=== PATIENT | female | born 1960 | race Caucasian/White ===

== ENCOUNTER 2021-11-16 14:35 | Inpatient (IN) ==
--- NOTE | 2021-11-16 15:34 | Emergency Department Note ---
Impression & Plan Hyperkalemia, ESRD (end stage renal disease) on dialysis, COVID-19 virus infection, Weakness ED Provider Note NAME: MARCK CHRISTENSEN AGE: 61 SEX: F : 1960 ARRIVES VIA: Walk-In INFORMANT: Patient, Family ED PROVIDER(S): Jose Ramon Arshad DO CHIEF COMPLAINT: Abnormal potassium, weakness, Covid positive HPI: Patient is a 61-year-old female who presents to the ER for abnormal blood work. Patient symptoms she believes started over a week ago. Family members note that she has been sick with upper respiratory symptoms since October 09. She was seen and evaluated [facility] and tested positive for Covid. She was discharged today after admission. She received 2 hours of dialysis yesterday. She is dialysis dependent and normally gets this Monday and 4 hours. She was called by Dr. Jesus vivas [facility] and instructed to come to the ER for admission due to an elevated potassium. Patient admits to cough, congestion and weakness. She notes that she is a little more short of breath then usual but nothing has changed since discharge. ROS: See above HPI for pertinent positives & negatives. A total of 10 systems reviewed and were otherwise negative. PAST MEDICAL HISTORY:See Below PAST SURGICAL HISTORY:See Below FAMILY HISTORY:See Below SOCIAL HISTORY:See Below HOME MEDICATIONS:See Below ALLERGIES:See Below VITALS:See Below PHYSICAL EXAMINATION: GENERAL: Sitting up in bed, alert, ill-appearing, morbidly obese, disheveled, intermittent cough EYE EXAM: normal conjunctiva. PERRL and EOM's grossly intact. OROPHARYNX: no exudate, no erythema, lips, buccal mucosa, and tongue normal and mucous membranes are moist NECK: supple, no nuchal rigidity, no adenopathy, non-tender LUNGS: Clear to auscultation. Normal chest wall mechanics HEART: no murmurs, S1 normal and S2 normal ABDOMEN: abdomen soft, non-tender, normo-active bowel sounds, no masses, no rebound or guarding. UPPER EXTREMITIES: upper extremities are grossly normal. LOWER EXTREMITIES: No pitting edema. NEURO EXAM: Normal sensorium, cranial nerves II-XII grossly intact, normal sp eech, no gross weakness of arms, no gross weakness of legs. MEDICAL DECISION MAKING: Patient is a 61-year-old female referred in by nephrology for an elevated potassium. Patient denies all other complaints. IV was established blood work was obtained. Labs show no significant leukocytosis. Mild anemia at 8.3. BMP with potassium 5.5. Creatinine 7.6. BUN elevated. Glucose is elevated as well. Patient was Covid positive. Initially discussed with Dr. Lee to clarify why patient was sent in. He was for the potassium upon discharge at [facility] of 6.2. This was after 2 hours of dialysis. Contacted Saray from nephrology following the results of the blood work. She recommended observation overnight due to the Covid positive and trying to obtain dialysis as an outpatient will need additional work setting this up. Triage Nursing notes reviewed. Limited review of prior medical records performed Vital Signs: reviewed and remarkable for no significant abnormalities Differential diagnosis: Differential diagnoses includes but is not limited to pneumonia, bronchitis, COPD/Asthma exacerbation, pneumothorax, pulmonary embolism, congestive heart failure, acute coronary syndrome ER treatment provided: See below Diagnostics interpreted by me: ECG: Sinus rhythm rate of 99 Normal axis Poor baseline QTC 495 Cardiac Monitoring: An order was placed for continuous cardiac monitoring. The monitor shows a rate of 92 with sinus rhythm. Laboratory studies: As stated above and show below. Imaging studies: Portable AP upright 1 view of the chest as described below Consultation(s): As discussed in MDM Discussed with the hospitalist for further evaluation Procedures: none Critical Care: None Past Med/Surg History Medical History (Updated 11/16/21 @ 21:38 by Jose Ramon Arshad DO) CHF (congestive heart failure) Chronic anemia ESRD (end stage renal disease) on dialysis HTN (hypertension) IDDM (insulin dependent diabetes mellitus) Social History Smoking Status: Former smoker Feels Safe at Home: Yes Allergies Allergies Allergy/AdvReac Type Severity Reaction Status Date / Time allopurinol Allergy Intermediate Hives Verified 11/16/21 16:52 gemfibrozil AdvReac Intermediate Tachycardia Verified 11/16/21 16:52 lisinopril AdvReac Intermediate HIVES PER Verified 11/16/21 16:52 GMG-SOB PER PT. metformin AdvReac Intermediate Diarrhea Verified 11/16/21 16:52 Home Meds Home Medications Medication Instructions Recorded Confirmed atorvastatin 20 mg tablet 20 mg PO QAM 11/16/21 11/16/21 calcium acetate(phosphat bind) 667 1,334 mg PO TIDM 02/08/22 02/08/22 mg capsule ezetimibe 10 mg tablet (Zetia) 10 mg PO QAM 11/16/21 11/16/21 furosemide 80 mg tablet (Lasix) 80 mg PO QAM 11/16/21 11/16/21 insulin glargine 100 unit/mL 12 unit SUBCUT HS 11/16/21 11/16/21 subcutaneous solution (Lantus U-100 Insulin) metoprolol succinate 50 mg 50 mg PO QAM 11/16/21 11/16/21 tablet,extended release 24 hr sodium zirconium cyclosilicate 10 10 g PO 5XWK 11/16/21 11/16/21 gram oral powder packet (Lokelma) vitamin B complex and vitamin C 1 cap PO QAM 11/16/21 11/16/21 no.20-folic acid 1 mg capsule (Renal Caps) Results & Data (ED) Vital Signs Vital Signs - 24 hr 11/16/21 14:58 11/16/21 17:48 Temperature 36.9 C Temperature Source Temporal Artery Scan Pulse Rate 94 H Pulse Rate [Apical] 92 H Pulse Rhythm Regular Pulse Strength Normal Respiratory Rate 20 26 H Respiratory Effort / Characteristics Non-Labored Spontaneous SOB on Exertion Respiratory Depth Normal Respiratory Pattern Regular Blood Pressure 132/82 Blood Pressure [Right Arm] 143/90 H Blood Pressure Mean 98 Blood Pressure Mean [Right Arm] 107 Blood Pressure Position Sitting Pulse Oximetry 98 96 Oxygen Delivery Method Room Air Room Air Sepsis Recent Fever Within 48 Hours No Sepsis New/Unexplained Change in Mental Status N/A Sepsis Action Taken by Nursing No Action Required Laboratory Data Result diagrams: 11/16/21 16:15 11/16/21 16:15 Lab Results 11/16/21 11/16/21 11/16/21 Range/Units 16:15 16:15 16:17 WBC 6.13 (4.8-10.8) K/uL RBC 2.39 L (4.2-5.4) M/uL Hgb 8.3 L (12.0-16.0) g/dL POC Hgb 7.5 L (12.0-16.0) g/dl Hct 26.0 L (37-47) % POC Hct 22 L (37-47) % MCV 108.8 H (80-100) fL MCH 34.7 H (25-34) pg MCHC 31.9 L (32-36) g/dL RDW Std Deviation 63.2 H (36.4-46.3) fL RDW Coeff of Wiley 15.8 H (11.5-14.5) % Plt Count 128 L (130-400) K/uL MPV 10.5 H (7.4-10.4) fL Immature Gran % (Auto) 0.2 % Neut % (Auto) 88.2 % Lymph % (Auto) 5.4 % Hopkins % (Auto) 6.0 % Eos % (Auto) 0.0 % Baso % (Auto) 0.2 % Neut # (Auto) 5.41 (1.4-6.5) K/uL Lymph # (Auto) 0.33 L (1.2-3.4) K/uL Hopkins # (Auto) 0.37 (0.11-0.59) K/uL Eos # (Auto) 0.00 (0-0.5) K/uL Baso # (Auto) 0.01 (0-0.2) K/uL Immature Gran # (Auto) 0.01 (0.00-0.02) K/uL POC Sodium 141 (135-144) mmol/L Sodium 141 (136-145) mmol/L POC Potassium 5.4 H (3.3-5.0) mmol/L Potassium 5.5 H (3.5-5.1) mmol/L POC Chloride 105 (101-112) mmol/L Chloride 106 (98-107) mmol/L Carbon Dioxide 24 (21-32) mmol/L POC Total CO2 24 (24-31) mmol/L Anion Gap 11 (3-11) POC Anion Gap 19.0 (16-25) mmol/L POC BUN 104 H* (7-18) mg/dl BUN 94 H (6-23) mg/dl Creatinine 7.63 H* (0.6-1.2) mg/dl POC Creatinine 8.1 H* (0.6-1.3) mg/dl Est Cr Clr Drug Dosing Not Reportable Est GFR ( Amer) 6.1 ml/min Est GFR (Non-Af Amer) 5.2 ml/min BUN/Creatinine Ratio 12.3 (10-20) Glucose 256 H (70-99(Fasting)) mg/dl POC Glucose (other) 254 H (70-99) mg/dl Calcium 7.9 L (8.5-10.1) mg/dl POC Ioniz Calcium Sarah 1.06 L (1.12-1.32) mmol/l Total Bilirubin 0.5 (0.2-1.0) mg/dl AST 47 H (13-39) U/L ALT 72 H (7-52) U/L Alkaline Phosphatase 59 (34-104) U/L Total Protein 6.2 (6.0-8.3) gm/dl Albumin 3.3 L (3.4-5.0) gm/dl Globulin 2.9 (2.5-4.0) gm/dl Albumin/Globulin Ratio 1.1 (0.9-2) SARS-CoV-2, RNA, NAAT (NEGATIVE) 11/16/21 Range/Units 18:21 WBC (4.8-10.8) K/uL RBC (4.2-5.4) M/uL Hgb (12.0-16.0) g/dL POC Hgb (12.0-16.0) g/dl Hct (37-47) % POC Hct (37-47) % MCV (80-100) fL MCH (25-34) pg MCHC (32-36) g/dL RDW Std Deviation (36.4-46.3) fL RDW Coeff of Wiley (11.5-14.5) % Plt Count (130-400) K/uL MPV (7.4-10.4) fL Immature Gran % (Auto) % Neut % (Auto) % Lymph % (Auto) % Hopkins % (Auto) % Eos % (Auto) % Baso % (Auto) % Neut # (Auto) (1.4-6.5) K/uL Lymph # (Auto) (1.2-3.4) K/uL Hopkins # (Auto) (0.11-0.59) K/uL Eos # (Auto) (0-0.5) K/uL Baso # (Auto) (0-0.2) K/uL Immature Gran # (Auto) (0.00-0.02) K/uL POC Sodium (135-144) mmol/L Sodium (136-145) mmol/L POC Potassium (3.3-5.0) mmol/L Potassium (3.5-5.1) mmol/L POC Chloride (101-112) mmol/L Chloride (98-107) mmol/L Carbon Dioxide (21-32) mmol/L POC Total CO2 (24-31) mmol/L Anion Gap (3-11) POC Anion Gap (16-25) mmol/L POC BUN (7-18) mg/dl BUN (6-23) mg/dl Creatinine (0.6-1.2) mg/dl POC Creatinine (0.6-1.3) mg/dl Est Cr Clr Drug Dosing Est GFR ( Amer) ml/min Est GFR (Non-Af Amer) ml/min BUN/Creatinine Ratio (10-20) Glucose (70-99(Fasting)) mg/dl POC Glucose (other) (70-99) mg/dl Calcium (8.5-10.1) mg/dl POC Ioniz Calcium Sarah (1.12-1.32) mmol/l Total Bilirubin (0.2-1.0) mg/dl AST (13-39) U/L ALT (7-52) U/L Alkaline Phosphatase (34-104) U/L Total Protein (6.0-8.3) gm/dl Albumin (3.4-5.0) gm/dl Globulin (2.5-4.0) gm/dl Albumin/Globulin Ratio (0.9-2) SARS-CoV-2, RNA, NAAT POSITIVE A* (NEGATIVE) Imaging Data Radiologist's Impression: Chest X-Ray 11/16/21 15:29 XR chest 1V portable CLINICAL HISTORY: Weakness. Shortness of breath. COMPARISON STUDY: No previous studies for comparison. FINDINGS: Dual lumen right internal jugular catheter is in place. Exam is compromised by portable technique and suboptimal penetration. No pneumothorax is present. There is no definite pleural effusion. Moderate cardiomegaly is noted. There is pulmonary vascular congestion with possible mild pulmonary edema. No lobar consolidation is noted. Apparent left basilar opacity is probably artifactual. IMPRESSION: 1. Cardiomegaly. Pulmonary vascular congestion with suspected mild pulmonary edema. 2. Hazy bibasilar opacities. These are likely artifactual however airspace disease or pulmonary edema could appear similar. ACT 112: Negative or not required by law. Electronically signed by: David Barlow M.D. 11/16/2021 4:29 PM Discharge Plan Visit Data Chief Complaint: Abnormal Labs/Diagnostic Testing Stated Complaint: COUGH, CONGESTION, BLOOD IN MUCUS ED Provider: Jose Ramon Arshad Discharge Problem: Hyperkalemia, ESRD (end stage renal disease) on dialysis, COVID-19 virus infection, Weakness Forms Stand Alone Forms: My [facility] Prescriptions Prescriptions: No Action atorvastatin 20 mg tablet 20 mg PO QAM RF: 0 Lantus U-100 Insulin 100 unit/mL Solution 12 unit SUBCUT HS RF: 0 metoprolol succinate 50 mg tablet extended release 24 hr 50 mg PO QAM RF: 0 furosemide [Lasix] 80 mg Tablet 80 mg PO QAM RF: 0 Renal Caps 1 mg Capsule 1 cap PO QAM RF: 0 ezetimibe [Zetia] 10 mg Tablet 10 mg PO QAM RF: 0 calcium acetate(phosphat bind) 667 mg capsule 1,334 mg PO TIDM RF: 0 Lokelma 10 gram powder in packet 10 g PO 5XWK RF: 0 Referrals Referrals: Bhanu Murillo M.D. [Primary Care Provider] -
[2021-11-16 16:25] LABS: Basophils # (auto) 0.01 K/uL (0-0.2); Basophils % (auto) 0.2 %; Hemoglobin 8.3 g/dL (12.0-16.0); Immature Granulocytes # (auto) 0.01 K/uL (0.00-0.02); Immature Granulocytes % (auto) 0.2 %; Lymphocytes # (auto) 0.33 K/uL (1.2-3.4); Lymphocytes % (auto) 5.4 %; Mean Corpuscular Hemoglobin 34.7 pg (25-34); Mean Corpuscular Hgb Conc 31.9 g/dL (32-36); Mean Corpuscular Volume 108.8 fL (80-100); Mean Platelet Volume 10.5 fL (7.4-10.4); Monocytes # (auto) 0.37 K/uL (0.11-0.59); Neutrophils # (auto) 5.41 K/uL (1.4-6.5); Neutrophils % (auto) 88.2 %; Platelet Count 128 K/uL (130-400); RDW Coefficient of Variation 15.8 % (11.5-14.5); RDW Standard Deviation 63.2 fL (36.4-46.3); Red Blood Count 2.39 M/uL (4.2-5.4); White Blood Count 6.13 K/uL (4.8-10.8)
[2021-11-16 16:30] LABS: iSTAT Creatinine 8.1 mg/dl (0.6-1.3); iSTAT Hemoglobin 7.5 g/dl (12.0-16.0); iSTAT Ionized Calcium 1.06 mmol/l (1.12-1.32); iSTAT Potassium 5.4 mmol/L (3.3-5.0)
--- NOTE | 2021-11-16 16:30 | XRay Report ---
XR chest 1V portable CLINICAL HISTORY: Weakness. Shortness of breath. COMPARISON STUDY: No previous studies for comparison. FINDINGS: Dual lumen right internal jugular catheter is in place. Exam is compromised by portable yanick hnique and suboptimal penetration. No pneumothorax is present. There is no definite pleural effusion. Moderate cardiomegaly is noted. There is pulmonary vascular congestion with possible mild pulmonary edema. No lobar consolidation is noted. Apparent left basilar opacity is probably artifactual. IMPRESSION: 1. Cardiomegaly. Pulmonary vascular congestion with suspected mild pulmonary edema. 2. Hazy bibasilar opacities. These are likely artifactual however airspace disease or pulmonary gerry a could appear similar. ACT 112: Negative or not required by law. Electronically signed by: David Barlow M.D. 11/16/2021 4:29 PM
[2021-11-16 17:09] LABS: Alanine Aminotransferase 72 U/L (7-52); Albumin Globulin Ratio 1.1 (0.9-2); Albumin Level 3.3 gm/dl (3.4-5.0); Alkaline Phosphatase 59 U/L (34-104); Anion Gap 11 (3-11); Aspartate Aminotransferase 47 U/L (13-39); BUN Creatinine Ratio 12.3 (10-20); Bilirubin,Total 0.5 mg/dl (0.2-1.0); Blood Urea Nitrogen 94 mg/dl (6-23); Calcium 7.9 mg/dl (8.5-10.1); Carbon Dioxide 24 mmol/L (21-32); Chloride 106 mmol/L (98-107); Est GFR (African American) 6.1 ml/min; Est GFR (Non-African American) 5.2 ml/min; Globulin 2.9 gm/dl (2.5-4.0); Glucose 256 mg/dl (70-99(Fasting)); Potassium 5.5 mmol/L (3.5-5.1); Sodium 141 mmol/L (136-145); Total Protein 6.2 gm/dl (6.0-8.3)
--- NOTE | 2021-11-16 20:22 | History & Physical Report ---
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), CHF (unknown EF), HTN, HLD, IDDM, Chronic Leg swelling, recent hx of COVID (11/03/21) admitted for HyperK+ HyperK+: -currently asymptomatic -K+ of 5.5 - EKG: NSR, decreased amplitude with artifact - admit to tele, EKG am, BMP am - Dialysis tomorrow - Nephrology consult COVID infection: -dx on 11/03/21 & Symptoms are improving -CXR: no sign of COVID pneumonia -VSS and lungs exam was good (except for b/l lower lobe rales) -for continue monitor pts symptoms ESRD on HD: -permacath in place -Dialysis session tomorrow -Nephro consult CHF (unknown EF): -pt appeared Euvolemic -will continue BB and Lasix -no need for echo at this time: unless pt required blood transfusion then would recommend echo IDDM: -continue home lantus units -ISS Elevated LFTs: -no abd symptoms -trend CMP HTN/HLD: -continue home meds Chronic Anemia: - Unknown baseline hgb -will trend CBC Diet: Renal and heart healthy DVT PPx:Heparin Code Status:DNR/DNI Emergency Contact: January (Niece): [phone] History of Present Illness Chief Complaint: HyperK+ Primary Care Provider: Bhanu Murillo M.D. 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 Due to COVID infection, pt was having severe cough, fatigue and weakness therefore she missed 1 week of HD. She received dialysis yesterday. She completed course of prednisone and zpak. No hospitalization or Monoclonal Antibody/Antiviral treatment for COVID infection. Her Cough, Fatigue and Generalized weakness is better. She denied any acute palpitation, CP, SOB or numbness/tingling. Pt had severe episode of nose bleeding with AC therefore she is currently not on AC for hx of DVT/PE (4 years ago). She does have hx of CHF and currently on Lasix 80mg daily and she is producing urine. Allergies Allergy/AdvReac Type Severity Reaction Status Date / Time allopurinol Allergy Intermediate Hives Verified 11/16/21 16:52 gemfibrozil AdvReac Intermediate Tachycardia Verified 11/16/21 16:52 lisinopril AdvReac Intermediate HIVES PER Verified 11/16/21 16:52 GMG-SOB PER PT. metformin AdvReac Intermediate Diarrhea Verified 11/16/21 16:52 Home Medications Medication Instructions Recorded Confirmed Type atorvastatin 20 mg tablet 20 mg PO QAM 11/16/21 11/16/21 History calcium acetate(phosphat bind) 667 1,334 mg PO TIDM 11/16/21 11/16/21 History mg capsule ezetimibe 10 mg tablet (Zetia) 10 mg PO QAM 11/16/21 11/16/21 History furosemide 80 mg tablet (Lasix) 80 mg PO QAM 11/16/21 11/16/21 History insulin glargine 100 unit/mL 12 unit SUBCUT HS 11/16/21 11/16/21 History subcutaneous solution (Lantus U-100 Insulin) metoprolol succinate 50 mg 50 mg PO QAM 11/16/21 11/16/21 History tablet,extended release 24 hr sodium zirconium cyclosilicate 10 10 g PO 5XWK 11/16/21 11/16/21 History gram oral powder packet (Lokelma) vitamin B complex and vitamin C 1 cap PO QAM 11/16/21 11/16/21 History no.20-folic acid 1 mg capsule (Renal Caps) Past Med/Surg History Medical History (Updated 11/16/21 @ 20:16 by Diya Bond MD) CHF (congestive heart failure) Chronic anemia ESRD (end stage renal disease) on dialysis HTN (hypertension) IDDM (insulin dependent diabetes mellitus) Social History Smoking Status: Former smoker Feels Safe at Home: Yes Review of Systems Review of Systems: At least 10 Review of systems were reviewed and all negative except as indicated in HPI Physical Exam Physical Exam: General:. NAD, well developed, well nourished HEENT:. Normocephalic and atraumatic, Normal Conjunctiva, EOMI, Sclera is non- icteric Lungs:.Permacath in place, b/l lower lobe rales, good air entry b/l, No signs of respiratory distress Heart:. Normal S1, S2, no murmur Abdominal:.obese abd, ND, Soft, NT MSK:.b/l moderate pitting edema of LE Skin:. no rash or open wound Psych:. AAOx3, normal affect Results & Data Results & Data ([facility]) Vital Signs (Past 12 Hours) Vital Signs Temp Pulse Pulse Resp BP BP Pulse Ox 11/16/21 17:48 92 H 26 H 143/90 H 96 11/16/21 14:58 36.9 C 94 H 20 132/82 98 Laboratory Results Short CBC 11/16/21 Range/Units 16:15 WBC 6.13 (4.8-10.8) K/uL Hgb 8.3 L (12.0-16.0) g/dL Hct 26.0 L (37-47) % Plt Count 128 L (130-400) K/uL BMP 11/16/21 16:15 Sodium 141 Potassium 5.5 H Chloride 106 Carbon Dioxide 24 BUN 94 H Creatinine 7.63 H* Glucose 256 H Calcium 7.9 L Liver Function 11/16/21 Range/Units 16:15 Total Bilirubin 0.5 (0.2-1.0) mg/dl AST 47 H (13-39) U/L ALT 72 H (7-52) U/L Alkaline Phosphatase 59 (34-104) U/L Albumin 3.3 L (3.4-5.0) gm/dl Diagnostic Findings Chest X-Ray 11/16/21 15:29 XR chest 1V portable CLINICAL HISTORY: Weakness. Shortness of breath. COMPARISON STUDY: No previous studies for comparison. FINDINGS: Dual lumen right internal jugular catheter is in place. Exam is compromised by portable technique and suboptimal penetration. No pneumothorax is present. There is no definite pleural effusion. Moderate cardiomegaly is noted. There is pulmonary vascular congestion with possible mild pulmonary edema. No lobar consolidation is noted. Apparent left basilar opacity is probably artifactual. IMPRESSION: 1. Cardiomegaly. Pulmonary vascular congestion with suspected mild pulmonary edema. 2. Hazy bibasilar opacities. These are likely artifactual however airspace disease or pulmonary edema could appear similar. ACT 112: Negative or not required by law. Electronically signed by: David Barlow M.D. 11/16/2021 4:29 PM Code Status & VTE Plan VTE Prophylaxis Plan VTE Prophylaxis will be ordered: Yes
[2021-11-16] MEDS ORDERED: INSULIN ASPART PER UNIT ONE (21:42)
[2021-11-16 22:09] LABS: Appearance Urine Clear (Clear); Bacteria Urine Automated Negative (Negative); Bilirubin Urine Negative (Negative); Blood Urine 1+ (Negative); Color Urine Yellow; Epithelial Cell Urine Auto >30 /lpf (0-5); Glucose Urine UA 2+ (Negative); Ketones Urine Negative (Negative); Leukocyte Esterase Urine Negative (Negative); Nitrite Urine Negative (Negative); Protein Urine 3+ (Negative); RBC Urine Automated 0-4 /hpf (0-4); Specific Gravity Urine 1.019 (1.000-1.030); Urobilinogen Urine Negative (Negative); pH Urine 7.5 (4.5-7.5)
[2021-11-16] MEDS ORDERED: GLUCOSE 40% GEL 15 GM TUBE PO PRN (22:16)
[2021-11-16] MEDS ORDERED: POLYETHYLENE (MIRALAX) 17 GM PACK PO PRN (22:16)
[2021-11-16] MEDS ORDERED: ONDANSETRON INJ 2 MG/ML 2 ML VIAL IV PRN (22:16)
[2021-11-16] MEDS ORDERED: CARBOHYDRATES FOR HYPOGLYCEMIA PO PRN (22:16)
[2021-11-16] MEDS ORDERED: DEXTROSE 50% 50 ML SYRINGE IV PRN (22:16)
[2021-11-16] MEDS ORDERED: GLUCOSE 10 TABS/TUBE PO PRN (22:16)
[2021-11-16] MEDS ORDERED: GLUCAGON FOR INJ 1 MG VIAL SQ PRN (22:16)
[2021-11-16] MEDS: HEPARIN SOD 5,000 UNIT/0.5 ML VIAL SQ SCH (23:57)
[2021-11-16] MEDS: INSULIN ASPART PER UNIT SC SCH (23:58)
[2021-11-17] MEDS: INSULIN GLARGINE SOLOSTAR 100 UNITS/ML 3 ML PEN SC SCH ×3 (00:29→20:46)
[2021-11-17 06:37] LABS: Hematocrit (blood only) 24.7 % (37-47); Hemoglobin 7.9 g/dL (12.0-16.0); Mean Corpuscular Hemoglobin 34.6 pg (25-34); Mean Corpuscular Volume 108.3 fL (80-100); Mean Platelet Volume 10.7 fL (7.4-10.4); Platelet Count 123 K/uL (130-400); RDW Coefficient of Variation 16.1 % (11.5-14.5); RDW Standard Deviation 63.2 fL (36.4-46.3); Red Blood Count 2.28 M/uL (4.2-5.4); White Blood Count 5.78 K/uL (4.8-10.8)
[2021-11-17 06:59] LABS: Albumin Globulin Ratio 1.3 (0.9-2); Albumin Level 3.2 gm/dl (3.4-5.0); BUN Creatinine Ratio 11.8 (10-20); Bilirubin,Total 0.5 mg/dl (0.2-1.0); Calcium 7.5 mg/dl (8.5-10.1); Creatinine Clr Calc Pharmacy 9.7 ml/min; Est GFR (African American) 5.7 ml/min; Est GFR (Non-African American) 4.9 ml/min; Globulin 2.5 gm/dl (2.5-4.0); Total Protein 5.7 gm/dl (6.0-8.3)
[2021-11-17] MEDS: METOPROLOL SUCC 50MG EXT REL TAB PO SCH (08:14)
[2021-11-17] MEDS: NEPHROCAPS PO SCH (08:14)
[2021-11-17] MEDS: ATORVASTATIN 20 MG TAB PO SCH (08:14)
[2021-11-17] MEDS: FUROSEMIDE 80 MG TAB PO SCH (08:14)
[2021-11-17] MEDS: EZETIMIBE 10 MG TABLET PO SCH (08:14)
[2021-11-17] MEDS: CALCIUM ACETATE 667 MG CAP/TAB PO SCH ×3 (08:15→17:39)
[2021-11-17] MEDS: HEPARIN SOD 5,000 UNIT/0.5 ML VIAL SQ SCH ×2 (08:16→20:45)
[2021-11-17] MEDS: INSULIN ASPART PER UNIT SC SCH ×4 (08:46→20:46)
[2021-11-17] MEDS ORDERED: SODIUM CHLORIDE 0.9% 1000ML 1,000 ML IV PRN (09:33)
[2021-11-17] MEDS ORDERED: HEPARIN SOD (PORCINE) 1000 UNIT/ML IV SCH (10:00)
[2021-11-17] MEDS ORDERED: EPOETIN ALFA 10,000 UNITS/ML VIAL IV SCH (10:00)
[2021-11-17] MEDS ORDERED: metOLazone 5 MG TABLET PO ONE (10:32)
[2021-11-17] MEDS ORDERED: FUROSEMIDE 40 MG/4 ML VIAL IV ONE (10:32)
--- NOTE | 2021-11-17 12:47 | Hospitalist Progress Note ---
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), CHF (unknown EF), HTN, HLD, IDDM, Chronic Leg swelling, recent hx of COVID (11/03/21) admitted for HyperK+ HyperK+: -K+ of 5.0 - EKG: NSR, decreased amplitude with artifact - Dialysis Monday sec to +Blood cultures - Nephrology on Case COVID infection: -dx on 11/03/21 & Symptoms are improving -CXR: no sign of COVID pneumonia -VSS and lungs exam was good (except for b/l lower lobe rales) -for continue monitor pts symptoms ESRD on HD: -permacath in place, Needs removal sec to staph in blood CHF (unknown EF): -pt appeared Euvolemic -will continue BB and Lasix/Zaroxlyn -echo to r/o IE IDDM: -continue home lantus units -ISS Elevated LFTs: -no abd symptoms -trend CMP HTN/HLD: -continue home meds Chronic Anemia: - Unknown baseline hgb -will trend CBC Diet: Renal and heart healthy DVT PPx:Heparin Labs Checked Code Status:DNR/DNI Emergency Contact: January (Niece): [phone] ROS-No Headache, No Visual Changes, No Nausea, No Vomiting, No Fever, No Chills, No Neck Pain or Stiffness, No Chest Pain, No Palpitations, No SOB, No FLORENTINO, No Cough, No Sputum, No Wheezing, No Abdominal Pain, No Diarrhea, No Hematemesis, No Hemoptysis, No Unexpected Weight Loss, No Flank pain, No Melena, No Hematochezia, No Frequency, No Urgency, No Burning, No Hematuria, No Rashes, No Diaphoresis. Appetite is Normal Physical Exam Gen-AAO x 3, NAD, Afebrile, Obese, L Upper chest Perm cath Head-NCAT, EOMI, PERRLA, Anicteric Sclera, No Posterior Pharyngeal Erythema Neck-Supple, No JVD, No Thyromegaly, No Masses, No LAD, No Bruits Lungs-Clear to Auscultation Bilaterally, No Rales, No Rhonchi, No Wheezing, No Crepitus Chest-No S4, +S1, +S2, No S3, No Murmurs, No Rubs, No Gallops, No Ectopy Abdomen-Soft, Bowel Sounds Present, Non Tender, Non Distended, No Hepatomegaly, No Splenomegaly, No Palpable Masses, No Rebound, No Rigidity, No Guarding Musculoskeletal-Full Range of Motion Bilaterally, No CVAT Extremities-No Cyanosis, No Clubbing, No Edema Nuero-Cranial Nerves II-XII grossly intact, Motor WNL, DTRs WNL, Strength WNL, Non Focal Psych-Normal Mood Admission and Anticipated Discharge Date Admission Date: November 16, 2021 Results & Data Results & Data ([facility]) Vital Signs (Past 12 Hours) Vital Signs Temp Pulse Pulse Resp BP Pulse Ox 11/17/21 11:51 36.9 C 84 20 127/61 96 11/17/21 07:54 81 11/17/21 07:30 36.9 C 85 16 132/90 96 11/17/21 02:53 36.7 C 87 14 128/73 96
[2021-11-17] MEDS: HEPARIN SOD (PORCINE) 1000 UNIT/ML IV SCH ×3 (16:07→17:02)
--- NOTE | 2021-11-17 16:31 | Consultation Report ---
NEPHROLOGY CONSULTATION NOTE DATE OF SERVICE: 11/17/2021 REASON FOR CONSULTATION: Dialysis patient admitted with bacteremia. HISTORY OF PRESENT ILLNESS: The patient is a 61-year-old female who is a noncompliant patient, who s kips dialysis very frequently. She presented to the Emergency Department yesterday because of cough, fatigue, weakness. She was positive for COVID infection. She was found to have high potassium as w ell as fluid overload and had been to [facility] one day prior where she had 2 hours of dialysis and then was discharged. They did blood culture at the [facility], whi ch just came back as positive for gram-positive cocci in clusters. ALLERGIES: Reviewed. MEDICATIONS: Home medication list was reviewed in detail and is as per the H and P and medicine halina nciliation list. PAST MEDICAL AND SURGICAL HISTORY: Congestive heart failure, chronic anemia, renal failure, end-stag e renal disease - on dialysis. She gets about 2 times a week, but is very noncompliant. Hypertensio n, insulin-dependent diabetes mellitus. SOCIAL HISTORY: Former smoker, and lives with her spouse at home. REVIEW OF SYSTEMS: Positive for fatigue, cough, shortness of breath, increased lower extremity edema . Denies fever, chills, or rigors. Denies nausea, vomiting, diarrhea, constipation, or blood in the stool. PHYSICAL EXAMINATION: VITAL SIGNS: Blood pressure is 127/61 and 96% on room air. HEENT: Mucous membrane is moist. NECK: Supple. No jugular venous distention. CHEST: Bilateral decreased breath sounds, basal crackles. CARDIOVASCULAR: S1 and S2 regular. ABDOMEN: Soft, nontender, obese. EXTREMITIES: Show 1-2+ edema bilaterally, which is more than her usual. LABORATORY TEST: Creatinine is 8, BUN 95, sodium 141, potassium 5.0, calcium 7.5, albumin 3.2. Hemo globin 7.9, platelet count 123. Chest x-ray shows cardiomegaly with pulmonary vascular congestion an d mild pulmonary edema. There was no clear-cut finding of COVID pneumonia on the chest x-ray. ASSESSMENT AND PLAN: A 61-year-old female with end-stage renal disease, on chronic hemodialysis, but is very noncompliant. She had COVID infection on 11/03 and since then has skipped dialysis as we vasquez ve been unable to reach her for many days in the dialysis unit. She was asked to come to the [facility] because of her symptoms of cough, increasing shortness of breath and missing dialysis for many days . 1. End-stage renal disease: Her blood culture from 2 days ago came back as gram-positive cocci in c lusters, which most likely is Staphylococcus aureus. This means dialysis catheter has to be removed. After appropriate line holiday, she will need another tunneled catheter placement. To make matters more complicated, she does appear to be in some degree of volume overload as well as issues with pota ssium. She still makes good bit of residual urine. So I do want to try with Lasix 100 mg IV as well as metolazone to see if we can get some diuresis and get the potassium down more. Ideally, we would like to remove the dialysis catheter today if practically feasible and give line holiday for a coupl e of days, and hopefully, if blood cultures remain negative, put a new dialysis catheter on Monday. Also, recommend to do echocardiogram to see if there is any catheter-related thrombus as she was havi ng significant problem with the catheter. 2. COVID infection: This happened more than 2 weeks ago, so she is technically not in very infectio us period at this time and does not seem to have much symptoms of COVID pneumonia. Most of her sympt oms, I believe, are related with pulmonary congestion and pulmonary edema as well as baseline shortne ss of breath. Case was discussed in detail with Dr. Sharma who is the hospitalist taking care of t he patient. There is a significant problem getting vascular surgeon at this point and if we are unab le to get a vascular surgeon, the patient will need to be transferred. Job ID: [id number]
--- NOTE | 2021-11-18 06:10 | Electrocardiogram Report ---
Test Reason : Blood Pressure : / mmHG Vent. Rate : 099 BPM Atrial Rate : 099 BPM P-R Int : 190 ms QRS Dur : 072 ms QT Int : 386 ms P-R-T Axes : 062 125 162 degrees QTc Int : 495 ms Poor data quality, interpretation may be adversely affected Normal sinus rhythm Low voltage QRS Nonspecific T wave abnormality Abnormal ECG No previous ECGs available Confirmed by Cain Perez ([id number]) on 11/18/2021 6:10:07 AM Referred By: REFERRED SELF Confirmed By:Cain Perez
--- NOTE | 2021-11-18 06:25 | Electrocardiogram Report ---
Test Reason : Blood Pressure : / mmHG Vent. Rate : 081 BPM Atrial Rate : 081 BPM P-R Int : 186 ms QRS Dur : 088 ms QT Int : 424 ms P-R-T Axes : 068 111 120 degrees QTc Int : 492 ms Normal sinus rhythm Right axis deviation Low voltage QRS Nonspecific T wave abnormality Abnormal ECG When compared with ECG of 16-NOV-2021 17:40, No significant change Confirmed by Cain Perez ([id number]) on 11/18/2021 6:24:43 AM Referred By: REFERRED SELF Confirmed By:Cain Perez
[2021-11-18 08:01] LABS: Hemoglobin 9.2 g/dL (12.0-16.0); Mean Corpuscular Hemoglobin 34.7 pg (25-34); Mean Corpuscular Hgb Conc 31.7 g/dL (32-36); Mean Corpuscular Volume 109.4 fL (80-100); Mean Platelet Volume 10.9 fL (7.4-10.4); Platelet Count 142 K/uL (130-400); RDW Standard Deviation 63.8 fL (36.4-46.3); Red Blood Count 2.65 M/uL (4.2-5.4)
[2021-11-18] MEDS: CALCIUM ACETATE 667 MG CAP/TAB PO SCH ×3 (08:32→17:34)
[2021-11-18] MEDS: NEPHROCAPS PO SCH (08:33)
[2021-11-18] MEDS: ATORVASTATIN 20 MG TAB PO SCH (08:33)
[2021-11-18] MEDS: EZETIMIBE 10 MG TABLET PO SCH (08:33)
[2021-11-18] MEDS: METOPROLOL SUCC 50MG EXT REL TAB PO SCH (08:33)
[2021-11-18] MEDS: FUROSEMIDE 80 MG TAB PO SCH (08:34)
[2021-11-18] MEDS: HEPARIN SOD 5,000 UNIT/0.5 ML VIAL SQ SCH ×2 (08:34→22:03)
[2021-11-18 08:44] LABS: Albumin Globulin Ratio 1.2 (0.9-2); Albumin Level 3.5 gm/dl (3.4-5.0); BUN Creatinine Ratio 9.7 (10-20); Bilirubin,Total 0.7 mg/dl (0.2-1.0); Calcium 7.9 mg/dl (8.5-10.1); Creatinine Clr Calc Pharmacy 14.5 ml/min; Est GFR (African American) 9.3 ml/min; Globulin 2.9 gm/dl (2.5-4.0); Potassium 4.1 mmol/L (3.5-5.1); Total Protein 6.4 gm/dl (6.0-8.3)
[2021-11-18] MEDS: INSULIN GLARGINE SOLOSTAR 100 UNITS/ML 3 ML PEN SC SCH ×2 (09:15→21:56)
[2021-11-18] MEDS: INSULIN ASPART PER UNIT SC SCH ×4 (09:15→21:56)
--- NOTE | 2021-11-18 09:52 | Communication Note ---
Date of Service: November 18, 2021 Waiting for cultures from 11/17. If cultures positive then will remove permcath tomorrow.
[2021-11-18] MEDS ORDERED: VANCOMYCIN CONSULT ACTIVE PRN (09:53)
[2021-11-18] MEDS ORDERED: VANCOMYCIN HCL 1,000 MG in SODIUM CHLORIDE 0.9% 250 ML IV STA (10:33)
--- NOTE | 2021-11-18 10:37 | Discharge Summary ---
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 Due to COVID infection, pt was having severe cough, fatigue and weakness therefore she missed 1 week of HD. She received dialysis yesterday. She completed course of prednisone and zpak. No hospitalization or Monoclonal Antibody/Antiviral treatment for COVID infection. Her Cough, Fatigue and Generalized weakness is better. She denied any acute palpitation, CP, SOB or numbness/tingling. Pt had severe episode of nose bleeding with AC therefore she is currently not on AC for hx of DVT/PE (4 years ago). She does have hx of CHF and currently on Lasix 80mg daily and she is producing urine. Admission Exam Per Admitting Provider General:.NAD, well developed, well nourished HEENT:.Normocephalic and atraumatic, Normal Conjunctiva, EOMI, Sclera is non- icteric Lungs:.Permacath in place, b/l lower lobe rales, good air entry b/l,No signs of respiratory distress Heart:.Normal S1, S2, no murmur Abdominal:.obese abd,ND, Soft, NT MSK:.b/l moderate pitting edema of LE Skin:.no rash or open wound Psych:.AAOx3, normal affect Principal Diagnosis (1) Hyperkalemia: (2) COVID-19 virus infection: (3) ESRD (end stage renal disease) on dialysis: (4) IDDM (insulin dependent diabetes mellitus): (5) HTN (hypertension): (6) CHF (congestive heart failure): (7) Chronic anemia: (8) Staph Bacteremia Discharge Exam See below Discharge Data Allergies Allergy/AdvReac Type Severity Reaction Status Date / Time allopurinol Allergy Intermediate Hives Verified 11/16/21 16:52 gemfibrozil AdvReac Intermediate Tachycardia Verified 11/16/21 16:52 lisinopril AdvReac Intermediate HIVES PER Verified 11/16/21 16:52 GMG-SOB PER PT. metformin AdvReac Intermediate Diarrhea Verified 11/16/21 16:52 Consultations 11/16/21 18:00 ED Decision to Admit Stat 11/16/21 22:16 Consult Nephrology Routine 11/17/21 10:33 Consult Vascular Surgery Routine Current Diagnoses Anemia, unspecified (11/16/21) Hyperkalemia (11/16/21) Essential (primary) hypertension (11/16/21) Heart failure, unspecified (11/16/21) End stage renal disease (11/16/21) COVID-19 (11/16/21) Dependence on renal dialysis (11/16/21) Allergies allopurinol Allergy (Intermediate, Verified 11/16/21 16:52) Hives gemfibrozil Adverse Reaction (Intermediate, Verified 11/16/21 16:52) Tachycardia lisinopril Adverse Reaction (Intermediate, Verified 11/16/21 16:52) HIVES PER GMG-SOB PER PT. metformin Adverse Reaction (Intermediate, Verified 11/16/21 16:52) Diarrhea Height/Weight/Isolation Height 5 ft 4 in Weight 125 kg Isolation Type COVID Precautions Chemistry 11/16/21 11/17/21 11/18/21 16:15 06:19 06:57 Sodium 141 141 140 Potassium 5.5 H 5.0 4.1 Chloride 106 107 102 Carbon Dioxide 24 23 26 Anion Gap 11 11 12 H BUN 94 H 95 H 52 H D Creatinine 7.63 H* 8.02 H* D 5.38 H* D Glucose 256 H 131 H 96 Urinalysis 11/16/21 21:46 Urine Color Yellow Urine Appearance Clear Urine pH 7.5 Ur Specific [place] 1.019 Urine Protein 3+ H Urine Glucose (UA) 2+ H Urine Ketones Negative Urine Blood 1+ H Urine Nitrite Negative Urine Bilirubin Negative Microbiology 11/17/21 10:52 Blood Aerobic Blood Culture - Pending 11/17/21 10:52 Blood Anaerobic Blood Culture - Pending 11/17/21 10:56 Blood Aerobic Blood Culture - Pending 11/17/21 10:56 Blood Anaerobic Blood Culture - Pending Hospital Course (1) Hyperkalemia: (2) COVID-19 virus infection: (3) ESRD (end stage renal disease) on dialysis: (4) IDDM (insulin dependent diabetes mellitus): (5) HTN (hypertension): (6) CHF (congestive heart failure): (7) Chronic anemia: Pt is 61 y/o F with hx of ESRD on HD (, , mon), 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), CHF (unknown EF), HTN, HLD, IDDM, Chronic Leg swelling, recent hx of COVID (11/03/21) admitted for HyperK+ and was found to have a Staph Bacteremia HyperK+: -K+ of 5.0 - EKG: NSR, decreased amplitude with artifact - Dialysis Monday and Monday sec to +Blood cultures Staph Aureus - Nephrology on Case c Temp Cath, HD Mon and Mon then DC home from [place] and F/U with Dr Ochoa next week for HD and Perm Cath - Repeat Blood Cultures Monday after HD COVID infection: -dx on 11/03/21 & Symptoms are improving -CXR: no sign of COVID pneumonia -VSS and lungs exam was good (except for b/l lower lobe rales) -for continue monitor pts symptoms ESRD on HD: -permacath in place, Needs removal sec to staph in blood, as above CHF (unknown EF): -pt appeared Euvolemic -will continue BB and Lasix/Zaroxlyn -echo to r/o IE IDDM: -continue home lantus units -ISS Elevated LFTs: -no abd symptoms -trend CMP HTN/HLD: -continue home meds Chronic Anemia: - Unknown baseline hgb -will trend CBC Diet: Renal and heart healthy DVT PPx:Heparin Labs Checked Code Status:DNR/DNI Emergency Contact: January (Niece): [phone] ROS-No Headache, No Visual Changes, No Nausea, No Vomiting, No Fever, No Chills, No Neck Pain or Stiffness, No Chest Pain, No Palpitations, No SOB, No FLORENTINO, No Cough, No Sputum, No Wheezing, No Abdominal Pain, No Diarrhea, No Hematemesis, No Hemoptysis, No Unexpected Weight Loss, No Flank pain, No Melena, No Hematochezia, No Frequency, No Urgency, No Burning, No Hematuria, No Rashes, No Diaphoresis. Appetite is Normal Physical Exam Gen-AAO x 3, NAD, Afebrile, Obese, L Upper chest Perm cath Head-NCAT, EOMI, PERRLA, Anicteric Sclera, No Posterior Pharyngeal Erythema Neck-Supple, No JVD, No Thyromegaly, No Masses, No LAD, No Bruits Lungs-Clear to Auscultation Bilaterally, No Rales, No Rhonchi, No Wheezing, No Crepitus Chest-No S4, +S1, +S2, No S3, No Murmurs, No Rubs, No Gallops, No Ectopy Abdomen-Soft, Bowel Sounds Present, Non Tender, Non Distended, No Hepatomegaly, No Splenomegaly, No Palpable Masses, No Rebound, No Rigidity, No Guarding Musculoskeletal-Full Range of Motion Bilaterally, No CVAT Extremities-No Cyanosis, No Clubbing, No Edema Nuero-Cranial Nerves II-XII grossly intact, Motor WNL, DTRs WNL, Strength WNL, Non Focal Psych-Normal Mood Total Time Total Time Spent Total Time Spent (In Minutes): 45 mins Total Time Includes: Examination of the Patient, Discharge Planning, Medication Reconciliation and Communication With Other Providers Discharge Plan Discharge Items Patient Disposition: Transfer Acute Care Hospital Reason For Visit: ESRD ON HD, HYPERKALEMIA, COVID Discharge Diagnosis: (1) Hyperkalemia: (2) COVID-19 virus infection: (3) ESRD (end stage renal disease) on dialysis: (4) IDDM (insulin dependent diabetes mellitus): (5) HTN (hypertension): (6) CHF (congestive heart failure): (7) Chronic anemia: (8) Staph Bacteremia Condition on Discharge: Good Activity: Resume your previous activity Lifting: Gradually increase as tolerated Bathing: No limitations Sexual Activity: When tolerated Exercise/Sports: Gradually increase as tolerated Driving/Machine Use: No limitations Weightbearing: Full weightbearing Non-emergency contact: Primary Care Provider and Window Shade Installer Call non-emergency contact if: you have any medication questions Follow-up/Referrals: Rakesh Ochoa MD [Surgeon] - (Early next week to arrange Perm Dialysis Catheter) Bhanu Murillo M.D. [Primary Care Provider] - Diet: Carb Consistent or DM2, Dialysis Renal and Heart Healthy Addtl Attending Provider Instructions: IR to remove HD catheter today or Monday, Healthcare Architect to place Temp HD catheter, Dialyze Monday and Sat the [place] home from [place] and F/U c Renal Dr Ochoa next week who will arrange a new Perm Cath Pending Studies at Discharge: Yes Studies:: Echo result, blood cultures Stand-Alone Forms: My [facility] Skilled Items Patient informed of condition?: Yes DNR: No Discharge Level of Care: Other Communicable Disease: Yes Discharge Prognosis: Stable Lines: [facility] Urinary Catheter: No Medications and DC Order Prescriptions: New heparin, porcine (PF) 5,000 unit/0.5 mL Syringe 5,000 unit subcut Q12 Qty: 0.5 RF: 0 Vancomycin Consult Active [Consult] 1 dose Not Applicable UD PRN (Reason: Staph Bacteremia) Qty: 1 RF: 0 vancomycin in 0.9 % sodium chl 500 mg/100 mL piggyback 1 g IV Q24H Qty: 300 RF: 0 Continued atorvastatin 20 mg tablet 20 mg PO QAM RF: 0 Lantus U-100 Insulin 100 unit/mL Solution 12 unit SUBCUT HS RF: 0 metoprolol succinate 50 mg tablet extended release 24 hr 50 mg PO QAM RF: 0 furosemide [Lasix] 80 mg Tablet 80 mg PO QAM RF: 0 Renal Caps 1 mg Capsule 1 cap PO QAM RF: 0 ezetimibe [Zetia] 10 mg Tablet 10 mg PO QAM RF: 0 calcium acetate(phosphat bind) 667 mg capsule 1,334 mg PO TIDM RF: 0 Lokelma 10 gram powder in packet 10 g PO 5XWK RF: 0 Discharge Orders: Discharge Order (Routine); Ordered 11/18/21 Ordered By: Elijah Sharma Admission Data Admit Date/Time: 11/16/21 18:44 Attending Provider: Elijah Sharma Admit Provider: Diya Bond Primary Care Provider: Bhanu Murillo Other Providers: Diya Bond ; Rakesh Ochoa ; Kalpesh Arevalo
[2021-11-18] MEDS ORDERED: DAPTOmycin 500 MG in SYRINGE 0 ML IV ONE (14:15)
--- NOTE | 2021-11-18 15:30 | Communication Note ---
Date of Service: November 18, 2021 Being she had positive culture from [facility], will remove permcath tomorrow.
--- NOTE | 2021-11-18 15:59 | Hospitalist Progress Note ---
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 There is now no need to transfer to [place] HyperK+: -K+ of 5.0 - EKG: NSR, decreased amplitude with artifact - Dialysis Monday and Monday sec to +Blood cultures Staph Aureus - Nephrology on Case Place temp Cath tomorrow after Perm Cath removed, HD Mon and Mon then DC home F/U with Dr Ochoa next week for HD and Perm Cath - Repeat Blood Cultures Monday after HD COVID infection: -dx on 11/03/21 & Symptoms are improving -CXR: no sign of COVID pneumonia -VSS and lungs exam was good (except for b/l lower lobe rales) -for continue monitor pts symptoms ESRD on HD: -permacath in place, Needs removal sec to staph in blood, as above CHF (unknown EF): -pt appeared Euvolemic -will continue BB and Lasix/Zaroxlyn -echo to r/o IE IDDM: -continue home lantus units -ISS Elevated LFTs: -no abd symptoms -trend CMP HTN/HLD: -continue home meds Chronic Anemia: - Unknown baseline hgb - will trend CBC Diet: Renal and heart healthy DVT PPx:Heparin Labs Checked Code Status:DNR/DNI Emergency Contact: January (Ashish): [phone] ROS-No Headache, No Visual Changes, No Nausea, No Vomiting, No Fever, No Chills, No Neck Pain or Stiffness, No Chest Pain, No Palpitations, No SOB, No FLORENTINO, No Cough, No Sputum, No Wheezing, No Abdominal Pain, No Diarrhea, No Hematemesis, No Hemoptysis, No Unexpected Weight Loss, No Flank pain, No Melena, No Hematochezia, No Frequency, No Urgency, No Burning, No Hematuria, No Rashes, No Diaphoresis. Appetite is Normal Physical Exam Gen-AAO x 3, NAD, Afebrile, Obese, L Upper chest Perm cath Head-NCAT, EOMI, PERRLA, Anicteric Sclera, No Posterior Pharyngeal Erythema Neck-Supple, No JVD, No Thyromegaly, No Masses, No LAD, No Bruits Lungs-Clear to Auscultation Bilaterally, No Rales, No Rhonchi, No Wheezing, No Crepitus Chest-No S4, +S1, +S2, No S3, No Murmurs, No Rubs, No Gallops, No Ectopy Abdomen-Soft, Bowel Sounds Present, Non Tender, Non Distended, No Hepatomegaly, No Splenomegaly, No Palpable Masses, No Rebound, No Rigidity, No Guarding Musculoskeletal-Full Range of Motion Bilaterally, No CVAT Extremities-No Cyanosis, No Clubbing, No Edema Nuero-Cranial Nerves II-XII grossly intact, Motor WNL, DTRs WNL, Strength WNL, Non Focal Psych-Normal Mood Admission and Anticipated Discharge Date Admission Date: November 16, 2021 Results & Data Results & Data ([facility]) Vital Signs (Past 12 Hours) Vital Signs Temp Pulse Pulse Resp BP Pulse Ox 11/18/21 15:38 81 11/18/21 13:51 37.0 C 80 18 108/80 90 11/18/21 11:50 37.0 C 80 18 108/80 90 11/18/21 09:51 79 11/18/21 07:10 37.3 C 82 18 114/61 92
[2021-11-19 08:17] LABS: Hepatitis B Surface Ab Quant < 3.10 mIU/mL (>or=10mIU/mL Immune); Hepatitis B Surface Antibody Non-Immune
[2021-11-19 08:27] LABS: Hepatitis B Surf Ag Rflx Conf Neg (Neg)
[2021-11-19] MEDS: INSULIN ASPART PER UNIT SC SCH ×4 (08:40→20:59)
[2021-11-19] MEDS: INSULIN GLARGINE SOLOSTAR 100 UNITS/ML 3 ML PEN SC SCH ×2 (08:41→21:40)
[2021-11-19] MEDS: ATORVASTATIN 20 MG TAB PO SCH (08:42)
[2021-11-19] MEDS: EZETIMIBE 10 MG TABLET PO SCH (08:42)
[2021-11-19] MEDS: HEPARIN SOD 5,000 UNIT/0.5 ML VIAL SQ SCH ×2 (08:42→21:14)
[2021-11-19] MEDS: CALCIUM ACETATE 667 MG CAP/TAB PO SCH ×3 (08:42→17:34)
[2021-11-19] MEDS: FUROSEMIDE 80 MG TAB PO SCH (08:42)
[2021-11-19] MEDS: METOPROLOL SUCC 50MG EXT REL TAB PO SCH (08:43)
[2021-11-19] MEDS: NEPHROCAPS PO SCH (08:43)
[2021-11-19 09:16] LABS: Hematocrit (blood only) 24.5 % (37-47); Hemoglobin 7.8 g/dL (12.0-16.0); Mean Corpuscular Hemoglobin 34.8 pg (25-34); Mean Corpuscular Hgb Conc 31.8 g/dL (32-36); Mean Corpuscular Volume 109.4 fL (80-100); Mean Platelet Volume 10.3 fL (7.4-10.4); Platelet Count 123 K/uL (130-400); RDW Coefficient of Variation 15.4 % (11.5-14.5); RDW Standard Deviation 61.9 fL (36.4-46.3); Red Blood Count 2.24 M/uL (4.2-5.4); White Blood Count 5.82 K/uL (4.8-10.8)
[2021-11-19] MEDS ORDERED: SODIUM CHLORIDE 0.9% 1000ML 1,000 ML IV PRN (09:34)
[2021-11-19 09:47] LABS: Albumin Globulin Ratio 1.2 (0.9-2); BUN Creatinine Ratio 9.8 (10-20); Bilirubin,Total 0.6 mg/dl (0.2-1.0); Calcium 7.7 mg/dl (8.5-10.1); Creatinine Clr Calc Pharmacy 10.9 ml/min; Est GFR (African American) 6.5 ml/min; Est GFR (Non-African American) 5.6 ml/min; Globulin 2.6 gm/dl (2.5-4.0); Total Protein 5.6 gm/dl (6.0-8.3)
--- NOTE | 2021-11-19 09:54 | Nephrology Progress Note ---
Date of Service November 19, 2021 Assessment & Plan Admission and Anticipated Discharge Date Admission Date: November 16, 2021 Subjective S---feels ot better. Blood C/s from Wed Is stil negative PHYSICAL EXAMINATION: VITAL SIGNS: Blood pressure is 127/61 and 96% on room air. HEENT: Mucous membrane is moist. NECK: Supple. No jugular venous distention. CHEST: Bilateral decreased breath sounds, basal crackles. CARDIOVASCULAR: S1 and S2 regular. ABDOMEN: Soft, nontender, obese. EXTREMITIES: Show 1-2+ edema bilaterally, which is more than her usual. LABORATORY TEST: No lytes ssues Hemoglobin 7.9, platelet count 123. Chest x- ray shows cardiomegaly with pulmonary vascular congestion and mild pulmonary edema. There was no clear-cut finding of COVID pneumonia on the chest x-ray. ASSESSMENT AND PLAN: A 61-year-old female with end-stage renal disease, on chronic hemodialysis, but is very noncompliant. She had COVID infection on 11/03 and since then has skipped dialysis as we have been unable to reach her for many days in the dialysis unit. She was asked to come to the hospital because of her symptoms of cough, increasing shortness of breath and missing dialysis for many days. 1. End-stage renal disease: Her blood culture from [facility] came +ve but is negative here. Getting Old CVC out and getting temp in. Next week she will need another tunneled catheter placement. Dialysis today and 3 hrs and take 3 kilo offf. Noheparin and use 96554 units epo 2. Bacteremia----Not really acting like sepsis.on Dapto now. However we have given her vanco before outpt slowly without problems. Will be lot easier to use that than to label as allergy forever. will discuss with pharmacy Results & Data ([facility]) Vital Signs (Past 12 Hours) Vital Signs Temp Pulse Pulse Resp BP Pulse Ox 11/19/21 08:49 82 11/19/21 08:04 37.1 C 81 18 109/63 96 11/19/21 02:47 37.3 C 83 16 124/54 L 94 11/18/21 22:51 37.2 C 89 20 144/61 H 90 11/18/21 22:20 82
[2021-11-19] MEDS ORDERED: MIDAZOLAM HCL 1 MG/ML 2ML VIAL ONE (09:57)
[2021-11-19] MEDS ORDERED: HEPARIN SOD (PORCINE) 5,000 UNITS/ML VIAL ONE (09:58)
[2021-11-19] MEDS ORDERED: fentaNYL citrate 100 MCG/2 ML VIAL ONE (09:58)
--- NOTE | 2021-11-19 10:02 | Consultation ---
Date of Consultation November 19, 2021 Assessment & Plan (1) Central venous catheter in place: Patient for removal of permcath today and insertion of temporary dialysis catheter today. Would recommend removal of temporary of dialysis catheter Monday after dialysis and we will arrange insertion of a new permcath on Monday. Thank you very much for letting us participate in the care of this patient. History of Present Illness Reason for Consultation: Infected permcath Attending Physician: Elijah Sharma DO History of Present Illness Patient with a 2week old permcath in place admitted with covid and bacteremia of gram positives in clusters. Blood cultures now neg. Permcath is not working well Allergies Allergy/AdvReac Type Severity Reaction Status Date / Time allopurinol Allergy Intermediate Hives Verified 11/16/21 16:52 gemfibrozil AdvReac Intermediate Tachycardia Verified 11/16/21 16:52 lisinopril AdvReac Intermediate HIVES PER Verified 11/16/21 16:52 GMG-SOB PER PT. metformin AdvReac Intermediate Diarrhea Verified 11/16/21 16:52 Home Medications Medication Instructions Recorded Confirmed Type atorvastatin 20 mg tablet 20 mg PO QAM 11/16/21 11/16/21 History calcium acetate(phosphat bind) 667 1,334 mg PO TIDM 11/16/21 11/16/21 History mg capsule ezetimibe 10 mg tablet (Zetia) 10 mg PO QAM 11/16/21 11/16/21 History furosemide 80 mg tablet (Lasix) 80 mg PO QAM 11/16/21 11/16/21 History insulin glargine 100 unit/mL 12 unit SUBCUT HS 11/16/21 11/16/21 History subcutaneous solution (Lantus U-100 Insulin) metoprolol succinate 50 mg 50 mg PO QAM 11/16/21 11/16/21 History tablet,extended release 24 hr sodium zirconium cyclosilicate 10 10 g PO 5XWK 11/16/21 11/16/21 History gram oral powder packet (Lokelma) vitamin B complex and vitamin C 1 cap PO QAM 11/16/21 11/16/21 History no.20-folic acid 1 mg capsule (Renal Caps) Vancomycin Consult Active [Consult] 1 dose NOT APPLICABLE UD PRN #1 ml 11/18/21 Rx heparin, porcine (PF) 5,000 5,000 unit SUBCUT Q12 #0.5 ml 11/18/21 Rx unit/0.5 mL injection syringe vancomycin 500 mg/100 mL in 0.9% 1 g IV Q24H #300 ml 11/18/21 Rx sodium chloride intravenous piggyback Patient History Medical History CHF (congestive heart failure) Chronic anemia ESRD (end stage renal disease) on dialysis HTN (hypertension) IDDM (insulin dependent diabetes mellitus) Social History Smoking Status: Former smoker Second Hand Exposure: No; Hx Alcohol Use: No Hx Substance Use: No Beliefs That Will Affect Care: None Current Living Situation: Family Feels Safe at Home: Yes Assistive Devices: Glasses, Oxygen - at Night and Walker Review of Systems Review of Systems: All systems reviewed & are unremarkable except as noted in HPI & below Physical Exam Constitutional: WD/WN, vitals as above Respiratory: normal respiratory effort, lungs clear to auscultation Cardiovascular: RRR, no murmur, no edema Gastrointestinal (Abdomen): Inspection/Auscultation: abdomen normal to inspection Percussion/Palpation: abdomen soft; abdomen nontender Musculoskeletal: no cyanosis or clubbing, extremities motor strength 5/5 Neurologic: CN's II-XI intact bilaterally and moves all extremities Psychiatric: Orientation: alert and oriented x 3 Results & Data ([facility]) Vital Signs (Past 12 Hours) Vital Signs Temp Pulse Pulse Resp BP Pulse Ox 11/19/21 08:49 82 11/19/21 08:04 37.1 C 81 18 109/63 96 11/19/21 02:47 37.3 C 83 16 124/54 L 94 11/18/21 22:51 37.2 C 89 20 144/61 H 90 11/18/21 22:20 82
[2021-11-19] MEDS ORDERED: ceFAZolin 3000MG/72.5 ML BAG IV ONE (10:09)
[2021-11-19] MEDS ORDERED: EPOETIN ALFA 10,000 UNITS/ML VIAL IV ONE (10:30)
--- NOTE | 2021-11-19 11:15 | Pre Anesthesia Assessment ---
Date of Service November 19, 2021 Pre Sedation Assessment Vital Signs Temp Pulse Pulse Resp BP Pulse Ox 11/19/21 11:12 98 H 20 152/79 H 100 11/19/21 11:08 94 H 20 148/70 H 100 11/19/21 11:04 95 H 20 147/90 H 100 11/19/21 10:59 96 H 20 165/82 H 100 11/19/21 10:54 100 H 20 155/77 H 100 11/19/21 10:52 98 H 20 159/81 H 100 11/19/21 08:49 82 11/19/21 08:04 37.1 C 81 18 109/63 96 11/19/21 02:47 37.3 C 83 16 124/54 L 94 11/18/21 22:51 37.2 C 89 20 144/61 H 90 11/18/21 22:20 82 11/18/21 20:40 37.3 C 82 16 110/68 91 11/18/21 16:43 37.0 C 78 19 121/63 99 11/18/21 15:38 81 11/18/21 13:51 37.0 C 80 18 108/80 90 11/18/21 11:50 37.0 C 80 18 108/80 90 Cardiovascular RRR, no murmur, no edema Respiratory normal respiratory effort, lungs clear to auscultation Pre-Sedation Airway Assessment Smoking Status: Former smoker Hx Sleep Apnea: No Short, Thick Neck: Yes Thyromental Distance: < 3.5 Finger Breadths Oral Cavity: + WNL Mallampati Class: III ASA: ASA3 NPO Status Date of Last Intake of Fluids: 11/18/21 Time of Last Intake of Fluids: 00:00 Date of Last Intake of Solid Food: 11/18/21 Time of Last Intake of Solid Foods: 00:00 Procedure Planning Contraindications for Sedation: none Current Medications Reviewed: Yes Notes The planned sedation has been discussed with the patient. Informed Consent was obtained. I have identified the patient, determined the appropriateness of sedation and have assessed the patient immediately prior to the procedure. All medicine(s) and interventions are by my order.
--- NOTE | 2021-11-19 11:20 | Operative Report ---
Post Operative Report Pre & Post Diagnosis Operation Date: 11/19/21 10:20 Pre-Op Diagnosis: Infected PermCath Post-Op Diagnosis: Infected Permcath I identified the patient and participated in the time-out.: Yes Procedure Operation Date: 11/19/21 10:20 Actual Procedures p Insertion of Temporary Dialysis Catheter, Left Internal Jugular Approach, Fluoroscopy for Positioning, Ultrasound Localization of Left Internal Jugular Vein, Moderate Sedation [id number] (Left) - Kalpesh Arevalo MD s Perm Catheter Removal(Right) - Kalpesh Arevalo MD Surgeon Kalpesh Arevalo MD Dial Maker none Estimated Blood Loss 5 Findings Consistent with Post-Op Diagnosis Specimens none Anesthesia Type RN Sedation Complications none Disposition Accompanied Patient To Recovery: No Disposition: PCU Indications Is a 7-year-old female with a right internal jugular vein PermCath in place. She was admitted with sepsis from gram-positive clusters. It appears that the PermCath was infected. Removal of the permacath and insertion of a temporary catheter recommended. I have discussed the risks options and benefits of the procedure with the patient. The patient understands the risks options and benefits and agrees to the procedure. Description of Procedure The patient was taken to the angio suite and placed in the supine position. The patient was identified and a timeout performed. The right side of the neck, chest wall and catheter were prepped and draped in a sterile manner. The cuff of the permcath was freed up from the surrounding fibrous tissue. The permcath and cuff were completely removed. Pressure was then applied and adequate hemostasis was obtained. A sterile dressing was then applied. Patient was taken to the angio suite and placed in the supine position. The left side of the neck were prepped and draped in a sterile manner. The patient was identified and a timeout performed. Local anesthesia was then administered to the appropriate areas of the neck and chest wall. Ultrasound was then used to locate the left internal jugular vein. The vein compressed easily, had no filing defects, and was patent. The vein was then punctured under direct ultrasound imaging. A guidewire was then passed centrally under fluoroscopic imaging. A stab wound was then made at the insertion site, the puncture dilated, and then a 20 cm temporary dialysis catheter was insertedto a central position in the distal superior vena cava. The catheter was then sutured in place using nylon sutures. Both ports aspirated and flushed easily and were then packed with heparin. A sterile dressing was applied to the catheter. The patient left the operation room in satisfactory condition and tolerated the procedure well. All needle and sponge counts were correct at the end of the procedure. I attest to the content of the Intraoperative Record and any orders documented therein. Any exceptions are noted below.
[2021-11-19] MEDS ORDERED: LIDOCAINE 1% LOCAL 20 ML VIAL INJ ONE (11:21)
--- NOTE | 2021-11-19 11:23 | Post Anesthesia Assessment ---
Date of Service November 19, 2021 Post Sedation Assessment Vital Signs Temp Pulse Pulse Resp BP Pulse Ox 11/19/21 11:17 100 H 20 151/71 H 98 11/19/21 11:12 98 H 20 152/79 H 100 11/19/21 11:08 94 H 20 148/70 H 100 11/19/21 11:04 95 H 20 147/90 H 100 11/19/21 10:59 96 H 20 165/82 H 100 11/19/21 10:54 100 H 20 155/77 H 100 11/19/21 10:52 98 H 20 159/81 H 100 11/19/21 08:49 82 11/19/21 08:04 37.1 C 81 18 109/63 96 11/19/21 02:47 37.3 C 83 16 124/54 L 94 11/18/21 22:51 37.2 C 89 20 144/61 H 90 11/18/21 22:20 82 11/18/21 20:40 37.3 C 82 16 110/68 91 11/18/21 16:43 37.0 C 78 19 121/63 99 11/18/21 15:38 81 11/18/21 13:51 37.0 C 80 18 108/80 90 11/18/21 11:50 37.0 C 80 18 108/80 90 Recovery Score Activity: Moves 4 extremities Respiration: Deep Breath/Cough Circulation: +/-20% PreAnes Value Consciousness: Fully Awake Oxygen Saturation: > 92% On Room Air Post Anesthesia Score: 10 Discharge Sedation Level of Care: Fast Track Phase II Post Sedation Plan On clinical assessment, the patient appears to have tolerated the sedation without complications. Patient is recovering as anticipated. Patient will continue to be monitored by nursing and may be discharged when sedation discharge criteria are met per below protocol. Upon Completions of procedure up to 15 minutes continue every 5 minute vital signs and the P.A.R. score; then discharge to a Phase I or Fast Track to Phase II per the following guidelines: * Discharge Patient to appropriate Phase II area if PAR is 8 or greater or return to pre- procedure baseline. The post - procedure orders will be as directed. * If PAR score is less than 8 or not return to pre-procedure baseline then patient will follow Phase I monitoring till PAR is reached for Phase II. The Phase I may be done in procedure room or may call to secure a Phase I area. * If naloxone or flumazenil are used for reversal, hold in Phase I for continued monitoring from when last reversal dose was given for a minimum of 60 minutes or longer pending the nurse and/or physician discretion of patient condition before discharge to Phase II. Please call the Sedation Physician to re-evaluate and complete post-note for discharge to Phase II area. Do NOT discharge from procedure sedation or Phase 1 until post- sedation evaluation note is complete by procedure /sedation MD Sedation Discharge Instructions to be given to the patient at discharge to home.
[2021-11-19] MEDS: NYSTATIN CR 15 GM TUBE EXT SCH ×2 (12:47→21:14)
[2021-11-19] MEDS ORDERED: VANCOMYCIN CONSULT ACTIVE PRN (14:03)
--- NOTE | 2021-11-19 14:07 | Hospitalist Progress Note ---
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), CHF (unknown EF), HTN, HLD, IDDM, Chronic Leg swelling, recent hx of COVID (11/03/21) admitted for HyperK+ and was found to have a Staph Bacteremia Dialysis catheter removed and replaced c Temp HyperK+: -K+ of 5.0 - EKG: NSR, decreased amplitude with artifact - Dialysis Monday and Monday sec to +Blood cultures Staph Aureus - Nephrology on Case, Place temp Cath today after Perm Cath removed, HD today and Tomorrow, Vanco 500 mg after each run, then DC home tomorrow F/U with Dr Ochoa next week for HD and Perm Cath - Repeat Blood Cultures NGTD COVID infection: -dx on 11/03/21 & Symptoms are improving -CXR: no sign of COVID pneumonia -VSS and lungs exam was good (except for b/l lower lobe rales) -for continue monitor pts symptoms ESRD on HD: -permacath in place, Needs removal sec to staph in blood, as above CHF (unknown EF): -pt appeared Euvolemic -will continue BB and Lasix/Zaroxlyn -echo to r/o IE IDDM: -continue home lantus units -ISS Elevated LFTs: -no abd symptoms -trend CMP HTN/HLD: -continue home meds Chronic Anemia: - Unknown baseline hgb - will trend CBC Diet: Renal and heart healthy DVT PPx:Heparin Labs Checked Code Status:DNR/DNI Emergency Contact: January (Niece): [phone] ROS-No Headache, No Visual Changes, No Nausea, No Vomiting, No Fever, No Chills, No Neck Pain or Stiffness, No Chest Pain, No Palpitations, No SOB, No FLORENTINO, No Cough, No Sputum, No Wheezing, No Abdominal Pain, No Diarrhea, No Hematemesis, No Hemoptysis, No Unexpected Weight Loss, No Flank pain, No Melena, No Hematochezia, No Frequency, No Urgency, No Burning, No Hematuria, No Rashes, No Diaphoresis. Appetite is Normal Physical Exam Gen-AAO x 3, NAD, Afebrile, Obese, L Upper chest Perm cath Head-NCAT, EOMI, PERRLA, Anicteric Sclera, No Posterior Pharyngeal Erythema Neck-Supple, No JVD, No Thyromegaly, No Masses, No LAD, No Bruits Lungs-Clear to Auscultation Bilaterally, No Rales, No Rhonchi, No Wheezing, No Crepitus Chest-No S4, +S1, +S2, No S3, No Murmurs, No Rubs, No Gallops, No Ectopy Abdomen-Soft, Bowel Sounds Present, Non Tender, Non Distended, No Hepatomegaly, No Splenomegaly, No Palpable Masses, No Rebound, No Rigidity, No Guarding Musculoskeletal-Full Range of Motion Bilaterally, No CVAT Extremities-No Cyanosis, No Clubbing, No Edema Nuero-Cranial Nerves II-XII grossly intact, Motor WNL, DTRs WNL, Strength WNL, Non Focal Psych-Normal Mood Admission and Anticipated Discharge Date Admission Date: November 16, 2021 Subjective Patient seen and feeling fine Results & Data Results & Data ([facility]) Vital Signs (Past 12 Hours) Vital Signs Temp Pulse Pulse Resp BP BP Pulse Ox 11/19/21 13:30 84 87/35 L 11/19/21 13:00 63 88/72 L 11/19/21 12:30 88 98/51 L 11/19/21 12:00 88 120/50 L 11/19/21 11:45 36.5 C 95 H 11/19/21 11:28 73 11/19/21 11:17 100 H 20 151/71 H 98 11/19/21 11:12 98 H 20 152/79 H 100 11/19/21 11:08 94 H 20 148/70 H 100 11/19/21 11:04 95 H 20 147/90 H 100 11/19/21 10:59 96 H 20 165/82 H 100 11/19/21 10:54 100 H 20 155/77 H 100 11/19/21 10:52 98 H 20 159/81 H 100 11/19/21 08:49 82 11/19/21 08:04 37.1 C 81 18 109/63 96 11/19/21 02:47 37.3 C 83 16 124/54 L 94 Laboratory Results Reviewed
--- NOTE | 2021-11-19 14:45 | Pharmacy Report ---
Pharmacy Vanc [facility] Short Note - Date of Service November 19, 2021 - Assessment & Plan Assessment 61 year old F receiving daptomycin initially, now vancomycin for treatment of Staph aureus bacteremia (cultures from outside facility). Inpatient cultures here from 11/17 show no growth at 48 hours. Perm catheter removed today with insertion of temporary dialysis catheter to be used today and tomorrow prior to discharge. Discussed with hospitalist and will give 1 gram of vancomycin this evening with random vancomycin level in AM. Will give supplemental dose after HD tomorrow as needed. Contacted [facility] and confirmed that no vancomycin was given yesterday. Daptomycin ordered initially, and one dose of 500 mg was given yesterday afternoon, due to reported patient allergy. Per nephrology notes, patient has previously tolerated vancomycin at slower infusion rates and he would prefer vancomycin for treatment. Given q48h dosing schedule of daptomycin, patient technically will be receiving overlapping treatment with vanco given today, so okay with potentially subtherapeutic level tomorrow AM. Day # 2 of IV antibiotics Plan Vancomycin * Will dose by random level after HD * 1 g IV x 1 to be given after HD today Pharmacy will continue to follow and will adjust dose/frequency as necessary. Thank you.
[2021-11-19] MEDS ORDERED: VANCOMYCIN HCL 1,000 MG in SODIUM CHLORIDE 0.9% 250 ML IV ONE (16:30)
[2021-11-19] MEDS ORDERED: diphenhydrAMINE 50 MG/ML VIAL IV PRN (18:16)
[2021-11-19] MEDS: ACETAMINOPHEN 325 MG TAB PO PRN (19:38)
[2021-11-20] MEDS: ACETAMINOPHEN 325 MG TAB PO PRN (05:30)
[2021-11-20 07:23] LABS: Hematocrit (blood only) 26.7 % (37-47); Hemoglobin 8.7 g/dL (12.0-16.0); Mean Corpuscular Hemoglobin 35.8 pg (25-34); Mean Corpuscular Hgb Conc 32.6 g/dL (32-36); Mean Corpuscular Volume 109.9 fL (80-100); Mean Platelet Volume 10.9 fL (7.4-10.4); Platelet Count 144 K/uL (130-400); RDW Coefficient of Variation 15.4 % (11.5-14.5); RDW Standard Deviation 60.6 fL (36.4-46.3); Red Blood Count 2.43 M/uL (4.2-5.4); White Blood Count 7.54 K/uL (4.8-10.8)
--- NOTE | 2021-11-20 07:51 | Discharge Summary ---
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 Due to COVID infection, pt was having severe cough, fatigue and weakness therefore she missed 1 week of HD. She received dialysis yesterday. She completed course of prednisone and zpak. No hospitalization or Monoclonal Antibody/Antiviral treatment for COVID infection. Her Cough, Fatigue and Generalized weakness is better. She denied any acute palpitation, CP, SOB or numbness/tingling. Pt had severe episode of nose bleeding with AC therefore she is currently not on AC for hx of DVT/PE (4 years ago). She does have hx of CHF and currently on Lasix 80mg daily and she is producing urine. Admission Exam Per Admitting Provider General:.NAD, well developed, well nourished HEENT:.Normocephalic and atraumatic, Normal Conjunctiva, EOMI, Sclera is non- icteric Lungs:.Permacath in place, b/l lower lobe rales, good air entry b/l,No signs of respiratory distress Heart:.Normal S1, S2, no murmur Abdominal:.obese abd,ND, Soft, NT MSK:.b/l moderate pitting edema of LE Skin:.no rash or open wound Psych:.AAOx3, normal affect Principal Diagnosis (1) Hyperkalemia: (2) COVID-19 virus infection: (3) ESRD (end stage renal disease) on dialysis: (4) IDDM (insulin dependent diabetes mellitus): (5) HTN (hypertension): (6) CHF (congestive heart failure): (7) Chronic anemia: (10) Staph Bacteremia Discharge Exam Constitutional See below Discharge Data Allergies Allergy/AdvReac Type Severity Reaction Status Date / Time allopurinol Allergy Intermediate Hives Verified 11/16/21 16:52 gemfibrozil AdvReac Intermediate Tachycardia Verified 11/16/21 16:52 lisinopril AdvReac Intermediate HIVES PER Verified 11/16/21 16:52 GMG-SOB PER PT. metformin AdvReac Intermediate Diarrhea Verified 11/16/21 16:52 Consultations 11/16/21 18:00 ED Decision to Admit Stat 11/16/21 22:16 Consult Nephrology Routine 11/17/21 10:33 Consult Vascular Surgery Routine 11/18/21 16:25 Consult Vascular Surgery Routine 11/19/21 07:31 Consult Infectious Diseases Routine Procedures Performed Operation Date: 11/19/21 10:20 Actual Procedures p Insertion of Temporary Dialysis Catheter, Left Internal Jugular Approach, F luoroscopy for Positioning, Ultrasound Localization of Left Internal Jugular Vein, Moderate Sedation [id number] 1117(Left) - Kalpesh Arevalo MD s Perm Catheter Removal(Right) - Kalpesh Arevalo MD Current Diagnoses Anemia, unspecified (11/16/21) Hyperkalemia (11/16/21) Essential (primary) hypertension (11/16/21) Heart failure, unspecified (11/16/21) End stage renal disease (11/16/21) COVID-19 (11/16/21) Other specified health status (11/16/21) Dependence on renal dialysis (11/16/21) Allergies allopurinol Allergy (Intermediate, Verified 11/16/21 16:52) Hives gemfibrozil Adverse Reaction (Intermediate, Verified 11/16/21 16:52) Tachycardia lisinopril Adverse Reaction (Intermediate, Verified 11/16/21 16:52) HIVES PER GMG-SOB PER PT. metformin Adverse Reaction (Intermediate, Verified 11/16/21 16:52) Diarrhea Height/Weight/Isolation Height 5 ft 4 in Weight 128.7 kg Isolation Type COVID Precautions Chemistry 11/18/21 11/19/21 11/20/21 06:57 08:31 06:52 Sodium 140 138 137 Potassium 4.1 4.0 3.7 Chloride 102 102 98 Carbon Dioxide 26 26 27 Anion Gap 12 H 10 12 H BUN 52 H D 71 H 45 H D Creatinine 5.38 H* D 7.23 H* D 5.49 H* D Glucose 96 81 76 Microbiology 11/17/21 10:52 Blood Aerobic Blood Culture - Preliminary No growth in Aerobic bottle after 48 hours. 11/17/21 10:52 Blood Anaerobic Blood Culture - Preliminary No growth in Anaerobic bottle after 48 hours. 11/17/21 10:56 Blood Aerobic Blood Culture - Preliminary No growth in Aerobic bottle after 48 hours. 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), CHF (unknown EF), HTN, HLD, IDDM, Chronic Leg swelling, recent hx of COVID (11/03/21) admitted for HyperK+ and was found to have a Staph Bacteremia Dialysis catheter removed and replaced c Temp 11/19 HyperK+: -K+ of 5.0 - EKG: NSR, decreased amplitude with artifact - Dialysis Monday and Monday sec to +Blood cultures Staph Aureus - Nephrology on Case, Place temp Cath today after Perm Cath removed, HD today then DC, Vanco 500 mg after each run, F/U with Dr Ochoa next week for HD and Perm Cath this coming week - Repeat Blood Cultures from 11/17 still NGTD, repeat blood cultures today COVID infection: -dx on 11/03/21 & Symptoms are improving -CXR: no sign of COVID pneumonia -VSS and lungs exam was good (except for b/l lower lobe rales) -for continue monitor pts symptoms ESRD on HD: -permcath in place, Needs removal sec to staph in blood, as above CHF (unknown EF): -pt appeared Euvolemic -will continue BB and Lasix/Zaroxlyn -echo to r/o IE IDDM: -continue home lantus units -ISS Elevated LFTs: -no abd symptoms -trend CMP HTN/HLD: -continue home meds Chronic Anemia: - Unknown baseline hgb - will trend CBC Diet: Renal and heart healthy DVT PPx:Heparin Labs Checked Code Status:DNR/DNI Emergency Contact: January (Niece): [phone] ROS-No Headache, No Visual Changes, No Nausea, No Vomiting, No Fever, No Chills, No Neck Pain or Stiffness, No Chest Pain, No Palpitations, No SOB, No FLORENTINO, No Cough, No Sputum, No Wheezing, No Abdominal Pain, No Diarrhea, No Hematemesis, No Hemoptysis, No Unexpected Weight Loss, No Flank pain, No Melena, No Hemato chezia, No Frequency, No Urgency, No Burning, No Hematuria, No Rashes, No Diaphoresis. Appetite is Normal Physical Exam Gen-AAO x 3, NAD, Afebrile, Obese, L Upper chest Perm cath removed Head-NCAT, EOMI, PERRLA, Anicteric Sclera, No Posterior Pharyngeal Erythema Neck-Supple, No JVD, No Thyromegaly, No Masses, No LAD, No Bruits Lungs-Clear to Auscultation Bilaterally, No Rales, No Rhonchi, No Wheezing, No Crepitus Chest-No S4, +S1, +S2, No S3, No Murmurs, No Rubs, No Gallops, No Ectopy Abdomen-Soft, Bowel Sounds Present, Non Tender, Non Distended, No Hepatomegaly, No Splenomegaly, No Palpable Masses, No Rebound, No Rigidity, No Guarding Musculoskeletal-Full Range of Motion Bilaterally, No CVAT Extremities-No Cyanosis, No Clubbing, No Edema Nuero-Cranial Nerves II-XII grossly intact, Motor WNL, DTRs WNL, Strength WNL, Non Focal Psych-Normal Mood Total Time Total Time Spent Total Time Spent (In Minutes): 45 mins Discharge Plan Discharge Items Patient Disposition: Home - Self-Care Reason For Visit: ESRD ON HD, HYPERKALEMIA, COVID Discharge Diagnosis: (1) Hyperkalemia: (2) COVID-19 virus infection: (3) ESRD (end stage renal disease) on dialysis: (4) IDDM (insulin dependent diabetes mellitus): (5) HTN (hypertension): (6) CHF (congestive heart failure): (7) Chronic anemia: (8) Staph Bacteremia Condition on Discharge: Good Activity: Resume your previous activity Lifting: Gradually increase as tolerated Bathing: No limitations Sexual Activity: When tolerated Exercise/Sports: Gradually increase as tolerated Driving/Machine Use: No limitations Weightbearing: Full weightbearing Non-emergency contact: Primary Care Provider and Dry Chain Offbearer Call non-emergency contact if: you have any medication questions Follow-up/Referrals: Rakesh Ochoa MD [Surgeon] - (Early next week to arrange Perm Dialysis Catheter) Bhanu Murillo M.D. [Primary Care Provider] - Diet: Carb Consistent or DM2, Dialysis Renal and Heart Healthy Addtl Attending Provider Instructions: F/U c Renal Dr Ochoa next week who will arrange a new Perm Cath Pending Studies at Discharge: No Studies:: Blood cultures 11/17 are neg, repeat blood Cx 11/20 Stand-Alone Forms: My [facility] [employer], Smoking Cessation Medications and DC Order Prescriptions: New nystatin 100,000 unit/gram Cream 1 applic EXT BID Qty: 30 RF: 0 Continued atorvastatin 20 mg tablet 20 mg PO QAM RF: 0 Lantus U-100 Insulin 100 unit/mL Solution 12 unit SUBCUT HS RF: 0 metoprolol succinate 50 mg tablet extended release 24 hr 50 mg PO QAM RF: 0 furosemide [Lasix] 80 mg Tablet 80 mg PO QAM RF: 0 Renal Caps 1 mg Capsule 1 cap PO QAM RF: 0 ezetimibe [Zetia] 10 mg Tablet 10 mg PO QAM RF: 0 calcium acetate(phosphat bind) 667 mg capsule 1,334 mg PO TIDM RF: 0 Lokelma 10 gram powder in packet 10 g PO 5XWK RF: 0 Discharge Orders: Discharge Order (Routine); Ordered 11/20/21 Ordered By: Elijah Sharma Admission Data Admit Date/Time: 11/16/21 18:44 Attending Provider: Elijah Sharma Admit Provider: Diya Bond Primary Care Provider: Bhanu Murillo Other Providers: Kalpesh Arevalo ; Diya Bond ; Rakesh Ochoa ; Lucian Valencia ; Jovanny Cerda ; Jose Ordoñez I. ; Dangelo Goff II ; Marija Paula ; Sterling Zhu ; Ryan Crawford Other Interventions: Discharge Summary Assessment (RN) Last Done: 11/18/21 13:51
[2021-11-20 07:53] LABS: Albumin Globulin Ratio 1.1 (0.9-2); Albumin Level 3.2 gm/dl (3.4-5.0); BUN Creatinine Ratio 8.2 (10-20); Bilirubin,Total 0.5 mg/dl (0.2-1.0); Calcium 7.8 mg/dl (8.5-10.1); Creatinine Clr Calc Pharmacy 14.5 ml/min; Est GFR (Non-African American) 7.8 ml/min; Globulin 2.9 gm/dl (2.5-4.0); Potassium 3.7 mmol/L (3.5-5.1); Total Protein 6.1 gm/dl (6.0-8.3)
[2021-11-20] MEDS ORDERED: SODIUM CHLORIDE 0.9% 1000ML 1,000 ML IV PRN (07:54)
[2021-11-20] MEDS: INSULIN GLARGINE SOLOSTAR 100 UNITS/ML 3 ML PEN SC SCH (08:00)
[2021-11-20] MEDS: INSULIN ASPART PER UNIT SC SCH (08:00)
--- NOTE | 2021-11-20 08:00 | Nephrology Progress Note ---
Date of Service November 20, 2021 Assessment & Plan Admission and Anticipated Discharge Date Admission Date: November 16, 2021 Subjective Subjective S---feels lot better. Blood C/s from Mon Is stil negative. had vanco without problem yesterday PHYSICAL EXAMINATION: VITAL SIGNS: Blood pressure is 127/61 and 96% on room air. HEENT: Mucous membrane is moist. NECK: Supple. No jugular venous distention. CHEST: Bilateral decreased breath sounds, basal crackles. CARDIOVASCULAR: S1 and S2 regular. ABDOMEN: Soft, nontender, obese. EXTREMITIES: Show 1-2+ edema bilaterally, which is more than her usual. LABORATORY TEST: No lytes ssues Hemoglobin 7.9, platelet count 123. Chest x- ray shows cardiomegaly with pulmonary vascular congestion and mild pulmonary edema. There was no clear-cut finding of COVID pneumonia on the chest x-ray. ASSESSMENT AND PLAN: A 61-year-old female with end-stage renal disease, on chronic hemodialysis, but is very noncompliant. She had COVID infection on 11/03 and since then has skipped dialysis as we have been unable to reach her for many days in the dialysis unit. She was asked to come to the hospital because of her symptoms of cough, increasing shortness of breath and missing dialysis for many days. 1. End-stage renal disease: Her blood culture from [place] came +ve but is negative here. Getting Old CVC out and getting temp in. Next week she will need another tunneled catheter placement. Will arrange through her dialysis unit in [place] where she gets most of her care. Dialysis today and 3 hrs and take 3 kilo offf. No heparin and use [id number] units epo 2. Bacteremia----Not really acting like sepsis even at admission. Not sure about this blood C/s really because she was negative here even without abx. We have given her vanco before outpt slowly without problems. Will be lot easier to use that than to label as allergy forever. Will still give her a total of 2 weeks of vanco. Given short duration of Rx empirically give vanco 1 gm after dialysis for 3 outpt sessions. ( no trough level check) Ok to be supratherapeutic than sub therapeutic. Results & Data ([facility]) Vital Signs (Past 12 Hours) Vital Signs Temp Pulse Pulse Resp BP Pulse Ox 11/20/21 07:02 36.7 C 83 17 125/66 98 11/20/21 03:00 36.9 C 88 16 91/62 L 95 11/19/21 23:23 37.0 C 95 H 17 126/55 L 95 11/19/21 22:19 92 H
[2021-11-20] MEDS: EZETIMIBE 10 MG TABLET PO SCH (08:39)
[2021-11-20] MEDS: FUROSEMIDE 80 MG TAB PO SCH (08:39)
[2021-11-20] MEDS: HEPARIN SOD 5,000 UNIT/0.5 ML VIAL SQ SCH (08:39)
[2021-11-20] MEDS: CALCIUM ACETATE 667 MG CAP/TAB PO SCH ×2 (08:39→13:00)
[2021-11-20] MEDS: ATORVASTATIN 20 MG TAB PO SCH (08:39)
[2021-11-20] MEDS: NYSTATIN CR 15 GM TUBE EXT SCH (08:40)
[2021-11-20] MEDS: METOPROLOL SUCC 50MG EXT REL TAB PO SCH (08:40)
[2021-11-20] MEDS: NEPHROCAPS PO SCH (08:40)
[2021-11-20] MEDS ORDERED: EPOETIN ALFA 10,000 UNITS/ML VIAL IV ONE (09:00)
--- NOTE | 2021-11-28 06:51 | Coding Query ---
CODING QUERY To promote full compliance with coding requirements relating to patient care, provider participation is requested in all cases of home mortgage disclosure act specialist uncertainty. Please assist us with the question(s) below: Coding Question(s): Patient admitted with hyperkalemia. Noncompliant with dialysis . Blood cultures from dialysis center positive for gram positive cocci. Permacath removed and Temporary dialysis catheter placed. 's OP report indicated infected dialysis catheter. Seeking to clarify if dialysis catheter was infected /source of the bacteremia - present on admission. Please check below & thank you . Levon Martinez [facility] Physician's Response(s): Patient had an infected Permacath dialysis catheter , Present on Admission Patient did not have an infected Permacath dialysis catheter. XX____ Cannot Clinically correlalte if patient had an infected Permacath dialysis catheter Other: Please document: Principal Diagnosis: "that condition established after study, to be chiefly responsible for occasioning the admission of the patient to the hospital for care." Co-Existing Principal Diagnosis: "when two or more diagnoses equally meet the criteria for principal diagnosis as determined by the circumstances of admission, diagnostic work up, and/or therapy provided, and the Alphabetic Index, Tabular List, or another coding guideline does not provide sequencing direction, any one of the diagnoses may be sequenced first." "When the physician has documented what appears to be a current diagnosis in the body of the record, but has not included the diagnosis in the final diagnostic statement, the physician should be asked whether the diagnosis should be added." (Source [facility] 2 QTR90. p3-4) ROSALINA
== END 2021-11-20 14:48 | disposition home or self-care (01) | DRG 640 ==
LOC: ED 14:35 → SUATTDRO 18:44 → 2S 18:44

== ENCOUNTER 2022-03-14 06:05 | Inpatient (IN) ==
[2022-03-14] MEDS ORDERED: GLUCOSE 10 TAB/TUBE PO PRN (11:01)
[2022-03-14] MEDS ORDERED: GLUCOSE 40% GEL 15 GM TUBE PO PRN (11:01)
[2022-03-14] MEDS ORDERED: DEXTROSE 50% 50 ML SYRINGE IV PRN (11:01)
[2022-03-14] MEDS ORDERED: ONDANSETRON INJ 2 MG/ML 2 ML VIAL IV PRN (11:01)
[2022-03-14] MEDS ORDERED: CARBOHYDRATES FOR HYPOGLYCEMIA PO PRN (11:01)
[2022-03-14] MEDS ORDERED: GLUCAGON FOR INJ 1 MG VIAL SQ PRN (11:01)
--- NOTE | 2022-03-14 11:10 | History & Physical Report ---
Date of Service March 14, 2022 Assessment & Plan (1) Fever: Plan: Presented to outside hospital with fever at home, generalized weakness, right shoulder pain s/p exchange of right tunneled IJ on 03/11. Initially thought to have PNA, was mildly hypoxic, thrombocytopenia, elevated lactate at 2.3 at OSH, now normal here at 2.0 COVID/BioFire panel here negative CXR without PNA but with pulm edema from volume overload PCT significantly elevated at 108, CRP high at 39 with leukopenia, anemia, thrombocytopenia here Anaplasmosis smear done here neg, PCR pending UA ordered and pending LFTs normal Shoulder xrays done here show arthritis but could have possible septic joint? Although seems less likely. COUld be MSK pain in right shoulder 2/2 positioning of shoulder during tunneled IJ? No evidence of infection at catheter site but very well could have bacteremia BPs soft initially but later in day had WYATT with rates 190s-200s with hypotension after dialysis--> transfer to ICU -admit to med-tele here initially but then later transferred to ICU for hypotension associated with rapid afib to the 200s -check BCxs -check UA -keep TIJ line in place for now but if has bacteremia would need removal -support BP with small bolus NS now post-HD, IV albumin x 1, transfer to ICU as may need pressors-phenylephrine perhaps given rapid afib -APAP as needed for fevers -started ZOsyn, Vanco, and doxy empirically for broad spectrum coverage to include Gram negative PNA, MRSA, and atypicals as well as tick borne illness -follow CBC, CMP, PCT, CRP, Mag in AM (2) Hypotension: Plan: soft BPs typically due to HD but now worsening with WYATT and likel septic shock given fever lactate negative hgb low but chronically low at 8.4, no evidence of bleeding bolus, give albumin x 1, transfer to ICU for possible pressors (3) Hyperkalemia: Plan: improved after kayexolate, IV insulin, calcium gluconate at OSH now s/o HD on 03/[address] Nephrology consult appreciated continue Patiromer po 5x/week follow BMP (4) Rapid atrial fibrillation: Plan: went into WYATT with initial SVT rates 200s evening of 03/14 did not slow down with vagal maneuvers at bedside with associated hypotension with BPs in 70s systolic -get another IV if possible, can use TIJ for fluid bolus in emergency situation as per Nephrology give digoxin 250mcg IV x 1 now give small bolus NS--> HR down to 180s-190s and Afib on ECG may need pressors consider amiodarone EF 35% on ECHO 11/2021 not on AC as outpt due to h/o bleeding as per pt -consult Cardio here (5) ESRD (end stage renal disease) on dialysis: Plan: only goes to HD on / and known for missing sessions at times as per Nephrology notes on HD for 2 years has TIJ perm cath in right side-just replaced on 03/11 received HD 03/14 for hyperkalemia appreciate Nephro consult continue Phos low tid, Nephrocaps replace Lokelma with Patiromer while here continue lasix, does make some urine (6) Thrombocytopenia: Plan: plts low at 52 here lower than previous 120s baseline likely sepsis induced avoid heparin SQ for now (7) CHF (congestive heart failure): Plan: HFrEF as per ECHO 11/2021, EF 35% mange fluid status with HD hold home metoprolol for hypotension (8) Weakness: Plan: due to sepsis (9) Chronic anemia: Plan: hgb 8.4, around baseline check Fe studies, B12, folate in AM follow CBC (10) HTN (hypertension): Plan: hold home metoprolol due to hypotension (11) Central venous catheter in place: Plan: tunneled IJ (12) IDDM (insulin dependent diabetes mellitus): Plan: continue Lantus, Novolog, adjust as needed, typically well controlled Plan: DVT porph-SCDs, hold heparin SQ due to thrombocytopenia Dispo-admit to med-tele and now transfer to ICU DNR/DNI as per d/w patient Admission and Anticipated Discharge Date Admission Date: March 14, 2022 History of Present Illness Chief Complaint: weakness,SOB,fever Primary Care Provider: Bhanu Murillo M.D. This patient is a 62-year-old female with history of ESRD on hemodialysis / only, HTN, DM 2, HFrEF, PAF not on AC due to h/o bleeding, anemia of chronic disease who presents as a direct admission from [facility] with fevers, generalized weakness, and some SOB. SHe just had her right tunneled IJ perm cath replaced on Monday at [facility] as it was fractured. She reports ever since that procedure she has had right shoulder pain that is constant in nature and fairly severe at times. At [facility], she was found to have a K+ of 5.8 without ECG changes, and was told she had PNA although CXR report from there does not note PNA. CXR here shows pulm vascular congestion. She reports having a fever at home to 102 last evening but was afebrile in [place] ER and here. She reports some SOB and is on 2LNC when she arrived. BPs are soft but she denies lightheadedness. Has some occasional cough, nonproductive. She is now having loose stools due to receiving kayexolate at [place]. She does make urine and has not noticed any urinary symptoms. She denies headaches, lightheadedness, sore throat, chest pains, abdominal pains, or leg swelling. At [place] ER she received IV calcium gluconate, IV insulin, Kayexalate. Her trop was mildly elevated at 130 approximately, she had thrombocytopenia worse than her baseline, no leukocytosis. 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 She will be admitted for ongoing treatment of hyperkalemia, fever of unknown origin. Allergies Allergy/AdvReac Type Severity Reaction Status Date / Time allopurinol Allergy Intermediate Hives Verified 11/16/21 16:52 gemfibrozil AdvReac Intermediate Tachycardia Verified 11/16/21 16:52 lisinopril AdvReac Intermediate HIVES PER Verified 11/16/21 16:52 GMG-SOB PER PT. metformin AdvReac Intermediate Diarrhea Verified 11/16/21 16:52 Home Medications Medication Instructions Recorded Confirmed Type atorvastatin 20 mg tablet 20 mg PO QAM 11/16/21 03/14/22 History calcium acetate(phosphat bind) 667 1,334 mg PO TIDM 11/16/21 03/14/22 History mg capsule ezetimibe 10 mg tablet (Zetia) 10 mg PO QAM 11/16/21 03/14/22 History furosemide 80 mg tablet (Lasix) 80 mg PO QAM 11/16/21 03/14/22 History insulin glargine 100 unit/mL 12 unit SUBCUT HS 11/16/21 03/14/22 History subcutaneous solution (Lantus U-100 Insulin) metoprolol succinate 50 mg 50 mg PO QAM 11/16/21 03/14/22 History tablet,extended release 24 hr sodium zirconium cyclosilicate 10 10 g PO 5XWK 11/16/21 03/14/22 History gram oral powder packet (Lokelma) vitamin B complex and vitamin C 1 cap PO QAM 11/16/21 03/14/22 History no.20-folic acid 1 mg capsule (Renal Caps) Past Med/Surg History Medical History CHF (congestive heart failure) Chronic anemia ESRD (end stage renal disease) on dialysis HTN (hypertension) IDDM (insulin dependent diabetes mellitus) Necrotizing fasciitis Thrombocytopenia Surgical History History of cholecystectomy History of lumbar surgery Family History Other Family history non-contributory Social History Smoking Status: Former smoker Second Hand Exposure: No; Hx Alcohol Use: No Hx Substance Use: No Preferred Language: Mauritian Communication Ability: Effective Dopeman Required: No Beliefs That Will Affect Care: None Current Living Situation: Alone Current Living Situation Comment: Niece lives next door Other Information That Helps Us Care for You: No Feels Safe at Home: Yes Safety Concerns: Feels Safe At This Time Assistive Devices: None Review of Systems Review of Systems: All systems reviewed & are unremarkable except as noted in HPI & below Physical Exam Constitutional: WD/WN, vitals as above + morbidly obese Eyes: PERRL, conjunctivae normal, anicteric sclerae ENMT: external ear and nose normal, oropharynx normal Neck: trachea midline, no thyromegaly Respiratory: normal respiratory effort, lungs clear to auscultation Cardiovascular: RRR, no murmur, no edema Chest (Breasts): Chest: + vascular access device or port (right anterior chest tunneled IJ,no erythema) Gastrointestinal (Abdomen): normal bowel sounds, soft, nontender, no hepa tosplenomegaly Musculoskeletal: Extremities: extremities normal to inspection; no cyanosis and no clubbing Right shoulder with +TTP over anterior shoulder, no erythema or effusion, +pain with active and passive ROM of right shoulder 2+ radial pulses Skin: no rashes, warm and dry Neurologic: moves all extremities and awake; no focal motor deficits Psychiatric: A+Ox3, euthymic affect Genitourinary: Purewick catheter in place and clear yellow urine in canister Lymphatic: no lymphedema Results & Data Results & Data ([facility]) Vital Signs (Past 12 Hours) Vital Signs Pulse 03/14/22 10:09 107 H Laboratory Results 03/14/22 03/14/22 03/14/22 Range/Units 21:10 20:43 20:43 WBC 4.86 (4.8-10.8) K/uL RBC 2.54 L (4.2-5.4) M/uL Hgb 8.6 L (12.0-16.0) g/dL Hct 26.9 L (37-47) % MCV 105.9 H (80-100) fL MCH 33.9 (25-34) pg MCHC 32.0 (32-36) g/dL RDW Std Deviation 54.5 H (36.4-46.3) fL RDW Coeff of Wiley 14.0 (11.5-14.5) % Plt Count 35 L (130-400) K/uL MPV 12.2 H (7.4-10.4) fL Immature Gran % (Auto) % Neut % (Auto) % Lymph % (Auto) % [place]ger % (Auto) % Eos % (Auto) % Baso % (Auto) % Neut # (Auto) (1.4-6.5) K/uL Lymph # (Auto) (1.2-3.4) K/uL [place]ger # (Auto) (0.11-0.59) K/uL Eos # (Auto) (0-0.5) K/uL Baso # (Auto) (0-0.2) K/uL Immature Gran # (Auto) (0.00-0.02) K/uL Dohle Bodies Platelet Estimate (Normal) Sodium Pending (136-145) mmol/L Potassium Pending (3.5-5.1) mmol/L Chloride Pending (98-107) mmol/L Carbon Dioxide Pending (21-32) mmol/L Anion Gap Pending (3-11) BUN Pending (6-23) mg/dl Creatinine Pending (0.6-1.2) mg/dl Est Cr Clr Drug Dosing Pending ml/min Est GFR ( Amer) Pending ml/min Est GFR (Non-Af Amer) Pending ml/min BUN/Creatinine Ratio Pending (10-20) Glucose Pending (70-99(Fasting)) mg/dl POC Glucose (70-99) mg/dl Lactate (0.4-2.0) mmol/L Calcium Pending (8.5-10.1) mg/dl Magnesium Pending (1.7-2.4) mg/dl Total Bilirubin (0.2-1.0) mg/dl AST (13-39) U/L ALT (7-52) U/L Alkaline Phosphatase (34-104) U/L Troponin I High Sens (0-14) pg/ml C-Reactive Protein (0-0.5) mg/dl Total Protein (6.0-8.3) gm/dl Albumin (3.4-5.0) gm/dl Globulin (2.5-4.0) gm/dl Albumin/Globulin Ratio (0.9-2) Procalcitonin (0-0.5) ng/ml Adenovirus (PCR) (NotDetected) Anaplasma Smear A. phagocytophilum DNA B. pertussis DNA (PCR) (NotDetected) B.parapertussis DNA PCR (NotDetected) C. pneumoniae DNA (PCR) (NotDetected) Coronavirus OC43 (PCR) (NotDetected) Coronavirus HKU1 (PCR) (NotDetected) Coronavirus 229E (PCR) (NotDetected) SARS-CoV-2 (PCR) (NotDetected) Coronavirus NL63 (PCR) (NotDetected) Hep Bs Antigen Hep Bs Ag Confirmation Hep Bs Antibody, Quant Human Metapneumovir PCR (NotDetected) Influenza Type A (PCR) (NotDetected) Influenza Type B (PCR) (NotDetected) M. pneumoniae (PCR) (NotDetected) Parainfluenza 1 (PCR) (NotDetected) Parainfluenza 2 (PCR) (NotDetected) Parainfluenza 3 (PCR) (NotDetected) Parainfluenza 4 (PCR) (NotDetected) RSV (PCR) (NotDetected) Entero/Rhino (PCR) (NotDetected) Blood Type Pending Antibody Screen Pending 03/14/22 03/14/22 03/14/22 Range/Units 20:33 19:07 18:37 WBC (4.8-10.8) K/uL RBC (4.2-5.4) M/uL Hgb (12.0-16.0) g/dL Hct (37-47) % MCV (80-100) fL MCH (25-34) pg MCHC (32-36) g/dL RDW Std Deviation (36.4-46.3) fL RDW Coeff of Wiley (11.5-14.5) % Plt Count (130-400) K/uL MPV (7.4-10.4) fL Immature Gran % (Auto) % Neut % (Auto) % Lymph % (Auto) % [place] % (Auto) % Eos % (Auto) % Baso % (Auto) % Neut # (Auto) (1.4-6.5) K/uL Lymph # (Auto) (1.2-3.4) K/uL [place]ger # (Auto) (0.11-0.59) K/uL Eos # (Auto) (0-0.5) K/uL Baso # (Auto) (0-0.2) K/uL Immature Gran # (Auto) (0.00-0.02) K/uL Dohle Bodies Platelet Estimate (Normal) Sodium (136-145) mmol/L Potassium (3.5-5.1) mmol/L Chloride (98-107) mmol/L Carbon Dioxide (21-32) mmol/L Anion Gap (3-11) BUN (6-23) mg/dl Creatinine (0.6-1.2) mg/dl Est Cr Clr Drug Dosing ml/min Est GFR ( Amer) ml/min Est GFR (Non-Af Amer) ml/min BUN/Creatinine Ratio (10-20) Glucose (70-99(Fasting)) mg/dl POC Glucose 185 H 143 H (70-99) mg/dl Lactate (0.4-2.0) mmol/L Calcium (8.5-10.1) mg/dl Magnesium (1.7-2.4) mg/dl Total Bilirubin (0.2-1.0) mg/dl AST (13-39) U/L ALT (7-52) U/L Alkaline Phosphatase (34-104) U/L Troponin I High Sens 120.1 H* (0-14) pg/ml C-Reactive Protein (0-0.5) mg/dl Total Protein (6.0-8.3) gm/dl Albumin (3.4-5.0) gm/dl Globulin (2.5-4.0) gm/dl Albumin/Globulin Ratio (0.9-2) Procalcitonin (0-0.5) ng/ml Adenovirus (PCR) (NotDetected) Anaplasma Smear A. phagocytophilum DNA B. pertussis DNA (PCR) (NotDetected) B.parapertussis DNA PCR (NotDetected) C. pneumoniae DNA (PCR) (NotDetected) Coronavirus OC43 (PCR) (NotDetected) Coronavirus HKU1 (PCR) (NotDetected) Coronavirus 229E (PCR) (NotDetected) SARS-CoV-2 (PCR) (NotDetected) Coronavirus NL63 (PCR) (NotDetected) Hep Bs Antigen Hep Bs Ag Confirmation Hep Bs Antibody, Quant Human Metapneumovir PCR (NotDetected) Influenza Type A (PCR) (NotDetected) Influenza Type B (PCR) (NotDetected) M. pneumoniae (PCR) (NotDetected) Parainfluenza 1 (PCR) (NotDetected) Parainfluenza 2 (PCR) (NotDetected) Parainfluenza 3 (PCR) (NotDetected) Parainfluenza 4 (PCR) (NotDetected) RSV (PCR) (NotDetected) Entero/Rhino (PCR) (NotDetected) Blood Type Antibody Screen 03/14/22 03/14/22 03/14/22 Range/Units 14:17 14:17 13:30 WBC (4.8-10.8) K/uL RBC (4.2-5.4) M/uL Hgb (12.0-16.0) g/dL Hct (37-47) % MCV (80-100) fL MCH (25-34) pg MCHC (32-36) g/dL RDW Std Deviation (36.4-46.3) fL RDW Coeff of Wiley (11.5-14.5) % Plt Count (130-400) K/uL MPV (7.4-10.4) fL Immature Gran % (Auto) % Neut % (Auto) % Lymph % (Auto) % Wilbarger % (Auto) % Eos % (Auto) % Baso % (Auto) % Neut # (Auto) (1.4-6.5) K/uL Lymph # (Auto) (1.2-3.4) K/uL Wilbarger # (Auto) (0.11-0.59) K/uL Eos # (Auto) (0-0.5) K/uL Baso # (Auto) (0-0.2) K/uL Immature Gran # (Auto) (0.00-0.02) K/uL Dohle Bodies Platelet Estimate (Normal) Sodium (136-145) mmol/L Potassium (3.5-5.1) mmol/L Chloride (98-107) mmol/L Carbon Dioxide (21-32) mmol/L Anion Gap (3-11) BUN (6-23) mg/dl Creatinine (0.6-1.2) mg/dl Est Cr Clr Drug Dosing ml/min Est GFR ( Amer) ml/min Est GFR (Non-Af Amer) ml/min BUN/Creatinine Ratio (10-20) Glucose (70-99(Fasting)) mg/dl POC Glucose (70-99) mg/dl Lactate (0.4-2.0) mmol/L Calcium (8.5-10.1) mg/dl Magnesium (1.7-2.4) mg/dl Total Bilirubin (0.2-1.0) mg/dl AST (13-39) U/L ALT (7-52) U/L Alkaline Phosphatase (34-104) U/L Troponin I High Sens (0-14) pg/ml C-Reactive Protein (0-0.5) mg/dl Total Protein (6.0-8.3) gm/dl Albumin (3.4-5.0) gm/dl Globulin (2.5-4.0) gm/dl Albumin/Globulin Ratio (0.9-2) Procalcitonin (0-0.5) ng/ml Adenovirus (PCR) Not Detected (NotDetected) Anaplasma Smear See Comment A. phagocytophilum DNA Pending B. pertussis DNA (PCR) Not Detected (NotDetected) B.parapertussis DNA PCR Not Detected (NotDetected) C. pneumoniae DNA (PCR) Not Detected (NotDetected) Coronavirus OC43 (PCR) Not Detected (NotDetected) Coronavirus HKU1 (PCR) Not Detected (NotDetected) Coronavirus 229E (PCR) Not Detected (NotDetected) SARS-CoV-2 (PCR) Not Detected (NotDetected) Coronavirus NL63 (PCR) Not Detected (NotDetected) Hep Bs Antigen Hep Bs Ag Confirmation Hep Bs Antibody, Quant Human Metapneumovir PCR Not Detected (NotDetected) Influenza Type A (PCR) Not Detected (NotDetected) Influenza Type B (PCR) Not Detected (NotDetected) M. pneumoniae (PCR) Not Detected (NotDetected) Parainfluenza 1 (PCR) Not Detected (NotDetected) Parainfluenza 2 (PCR) Not Detected (NotDetected) Parainfluenza 3 (PCR) Not Detected (NotDetected) Parainfluenza 4 (PCR) Not Detected (NotDetected) RSV (PCR) Not Detected (NotDetected) Entero/Rhino (PCR) Not Detected (NotDetected) Blood Type Antibody Screen 03/14/22 03/14/22 03/14/22 Range/Units 13:03 12:35 12:24 WBC (4.8-10.8) K/uL RBC (4.2-5.4) M/uL Hgb (12.0-16.0) g/dL Hct (37-47) % MCV (80-100) fL MCH (25-34) pg MCHC (32-36) g/dL RDW Std Deviation (36.4-46.3) fL RDW Coeff of Wiley (11.5-14.5) % Plt Count (130-400) K/uL MPV (7.4-10.4) fL Immature Gran % (Auto) % Neut % (Auto) % Lymph % (Auto) % [place] % (Auto) % Eos % (Auto) % Baso % (Auto) % Neut # (Auto) (1.4-6.5) K/uL Lymph # (Auto) (1.2-3.4) K/uL [place]ger # (Auto) (0.11-0.59) K/uL Eos # (Auto) (0-0.5) K/uL Baso # (Auto) (0-0.2) K/uL Immature Gran # (Auto) (0.00-0.02) K/uL Dohle Bodies Platelet Estimate (Normal) Sodium (136-145) mmol/L Potassium (3.5-5.1) mmol/L Chloride (98-107) mmol/L Carbon Dioxide (21-32) mmol/L Anion Gap (3-11) BUN (6-23) mg/dl Creatinine (0.6-1.2) mg/dl Est Cr Clr Drug Dosing ml/min Est GFR ( Amer) ml/min Est GFR (Non-Af Amer) ml/min BUN/Creatinine Ratio (10-20) Glucose (70-99(Fasting)) mg/dl POC Glucose 223 H (70-99) mg/dl Lactate 1.0 (0.4-2.0) mmol/L Calcium (8.5-10.1) mg/dl Magnesium (1.7-2.4) mg/dl Total Bilirubin (0.2-1.0) mg/dl AST (13-39) U/L ALT (7-52) U/L Alkaline Phosphatase (34-104) U/L Troponin I High Sens (0-14) pg/ml C-Reactive Protein (0-0.5) mg/dl Total Protein (6.0-8.3) gm/dl Albumin (3.4-5.0) gm/dl Globulin (2.5-4.0) gm/dl Albumin/Globulin Ratio (0.9-2) Procalcitonin (0-0.5) ng/ml Adenovirus (PCR) (NotDetected) Anaplasma Smear A. phagocytophilum DNA B. pertussis DNA (PCR) (NotDetected) B.parapertussis DNA PCR (NotDetected) C. pneumoniae DNA (PCR) (NotDetected) Coronavirus OC43 (PCR) (NotDetected) Coronavirus HKU1 (PCR) (NotDetected) Coronavirus 229E (PCR) (NotDetected) SARS-CoV-2 (PCR) (NotDetected) Coronavirus NL63 (PCR) (NotDetected) Hep Bs Antigen Pending Hep Bs Ag Confirmation Pending Hep Bs Antibody, Quant Pending Human Metapneumovir PCR (NotDetected) Influenza Type A (PCR) (NotDetected) Influenza Type B (PCR) (NotDetected) M. pneumoniae (PCR) (NotDetected) Parainfluenza 1 (PCR) (NotDetected) Parainfluenza 2 (PCR) (NotDetected) Parainfluenza 3 (PCR) (NotDetected) Parainfluenza 4 (PCR) (NotDetected) RSV (PCR) (NotDetected) Entero/Rhino (PCR) (NotDetected) Blood Type Antibody Screen 03/14/22 03/14/22 03/14/22 Range/Units 12:24 12:24 12:24 WBC 3.85 L (4.8-10.8) K/uL RBC 2.41 L (4.2-5.4) M/uL Hgb 8.4 L (12.0-16.0) g/dL Hct 26.4 L (37-47) % MCV 109.5 H (80-100) fL MCH 34.9 H (25-34) pg MCHC 31.8 L (32-36) g/dL RDW Std Deviation 56.0 H (36.4-46.3) fL RDW Coeff of Wiley 13.9 (11.5-14.5) % Plt Count 54 L (130-400) K/uL MPV 11.6 H (7.4-10.4) fL Immature Gran % (Auto) 2.6 % Neut % (Auto) 86.5 % Lymph % (Auto) 4.7 % Wilbarger % (Auto) 6.2 % Eos % (Auto) 0.0 % Baso % (Auto) 0.0 % Neut # (Auto) 3.33 (1.4-6.5) K/uL Lymph # (Auto) 0.18 L (1.2-3.4) K/uL Wilbarger # (Auto) 0.24 (0.11-0.59) K/uL Eos # (Auto) 0.00 (0-0.5) K/uL Baso # (Auto) 0.00 (0-0.2) K/uL Immature Gran # (Auto) 0.10 H (0.00-0.02) K/uL Dohle Bodies 2+ Platelet Estimate Decreased L (Normal) Sodium 136 (136-145) mmol/L Potassium 5.1 (3.5-5.1) mmol/L Chloride 97 L (98-107) mmol/L Carbon Dioxide 23 (21-32) mmol/L Anion Gap 16 H (3-11) BUN 96 H (6-23) mg/dl Creatinine 11.48 H* (0.6-1.2) mg/dl Est Cr Clr Drug Dosing 6.8 ml/min Est GFR ( Amer) 3.7 ml/min Est GFR (Non-Af Amer) 3.2 ml/min BUN/Creatinine Ratio 8.4 L (10-20) Glucose 197 H (70-99(Fasting)) mg/dl POC Glucose (70-99) mg/dl Lactate (0.4-2.0) mmol/L Calcium 8.4 L (8.5-10.1) mg/dl Magnesium 2.0 (1.7-2.4) mg/dl Total Bilirubin 0.5 (0.2-1.0) mg/dl AST 28 (13-39) U/L ALT 20 (7-52) U/L Alkaline Phosphatase 62 (34-104) U/L Troponin I High Sens 111.7 H* (0-14) pg/ml C-Reactive Protein 38.99 H (0-0.5) mg/dl Total Protein 6.1 (6.0-8.3) gm/dl Albumin 3.1 L (3.4-5.0) gm/dl Globulin 3.0 (2.5-4.0) gm/dl Albumin/Globulin Ratio 1.0 (0.9-2) Procalcitonin 108.25 H (0-0.5) ng/ml Adenovirus (PCR) (NotDetected) Anaplasma Smear A. phagocytophilum DNA B. pertussis DNA (PCR) (NotDetected) B.parapertussis DNA PCR (NotDetected) C. pneumoniae DNA (PCR) (NotDetected) Coronavirus OC43 (PCR) (NotDetected) Coronavirus HKU1 (PCR) (NotDetected) Coronavirus 229E (PCR) (NotDetected) SARS-CoV-2 (PCR) (NotDetected) Coronavirus NL63 (PCR) (NotDetected) Hep Bs Antigen Hep Bs Ag Confirmation Hep Bs Antibody, Quant Human Metapneumovir PCR (NotDetected) Influenza Type A (PCR) (NotDetected) Influenza Type B (PCR) (NotDetected) M. pneumoniae (PCR) (NotDetected) Parainfluenza 1 (PCR) (NotDetected) Parainfluenza 2 (PCR) (NotDetected) Parainfluenza 3 (PCR) (NotDetected) Parainfluenza 4 (PCR) (NotDetected) RSV (PCR) (NotDetected) Entero/Rhino (PCR) (NotDetected) Blood Type Antibody Screen 03/14/22 Range/Units 11:12 WBC (4.8-10.8) K/uL RBC (4.2-5.4) M/uL Hgb (12.0-16.0) g/dL Hct (37-47) % MCV (80-100) fL MCH (25-34) pg MCHC (32-36) g/dL RDW Std Deviation (36.4-46.3) fL RDW Coeff of Wiley (11.5-14.5) % Plt Count (130-400) K/uL MPV (7.4-10.4) fL Immature Gran % (Auto) % Neut % (Auto) % Lymph % (Auto) % [place] % (Auto) % Eos % (Auto) % Baso % (Auto) % Neut # (Auto) (1.4-6.5) K/uL Lymph # (Auto) (1.2-3.4) K/uL [place] # (Auto) (0.11-0.59) K/uL Eos # (Auto) (0-0.5) K/uL Baso # (Auto) (0-0.2) K/uL Immature Gran # (Auto) (0.00-0.02) K/uL Dohle Bodies Platelet Estimate (Normal) Sodium (136-145) mmol/L Potassium (3.5-5.1) mmol/L Chloride (98-107) mmol/L Carbon Dioxide (21-32) mmol/L Anion Gap (3-11) BUN (6-23) mg/dl Creatinine (0.6-1.2) mg/dl Est Cr Clr Drug Dosing ml/min Est GFR ( Amer) ml/min Est GFR (Non-Af Amer) ml/min BUN/Creatinine Ratio (10-20) Glucose (70-99(Fasting)) mg/dl POC Glucose 192 H (70-99) mg/dl Lactate (0.4-2.0) mmol/L Calcium (8.5-10.1) mg/dl Magnesium (1.7-2.4) mg/dl Total Bilirubin (0.2-1.0) mg/dl AST (13-39) U/L ALT (7-52) U/L Alkaline Phosphatase (34-104) U/L Troponin I High Sens (0-14) pg/ml C-Reactive Protein (0-0.5) mg/dl Total Protein (6.0-8.3) gm/dl Albumin (3.4-5.0) gm/dl Globulin (2.5-4.0) gm/dl Albumin/Globulin Ratio (0.9-2) Procalcitonin (0-0.5) ng/ml Adenovirus (PCR) (NotDetected) Anaplasma Smear A. phagocytophilum DNA B. pertussis DNA (PCR) (NotDetected) B.parapertussis DNA PCR (NotDetected) C. pneumoniae DNA (PCR) (NotDetected) Coronavirus OC43 (PCR) (NotDetected) Coronavirus HKU1 (PCR) (NotDetected) Coronavirus 229E (PCR) (NotDetected) SARS-CoV-2 (PCR) (NotDetected) Coronavirus NL63 (PCR) (NotDetected) Hep Bs Antigen Hep Bs Ag Confirmation Hep Bs Antibody, Quant Human Metapneumovir PCR (NotDetected) Influenza Type A (PCR) (NotDetected) Influenza Type B (PCR) (NotDetected) M. pneumoniae (PCR) (NotDetected) Parainfluenza 1 (PCR) (NotDetected) Parainfluenza 2 (PCR) (NotDetected) Parainfluenza 3 (PCR) (NotDetected) Parainfluenza 4 (PCR) (NotDetected) RSV (PCR) (NotDetected) Entero/Rhino (PCR) (NotDetected) Blood Type Antibody Screen Diagnostic Findings Chest X-Ray 03/14/22 11:10 SINGLE VIEW CHEST CLINICAL HISTORY: Dyspnea. Atypical chest pain. FINDINGS: An AP, portable, upright chest radiograph is compared to study dated 11/16/2021. The examination is degraded by portable technique, large body habitus, and apical lordotic positioning. A right internal jugular central venous catheter is unchanged in position. The heart is enlarged noting atherosclerotic calcification of the thoracic aorta. There is pulmonary vascular congestion. Atelectasis seen at the lung bases. No airspace consolidation or large pleural effusion is identified. No pneumothorax is seen. The skeletal structures are o steopenic. The bony thorax is grossly intact. IMPRESSION: Cardiomegaly with pulmonary vascular congestion. ACT 112: Negative or not required by law. Electronically signed by: Gavin Holder M.D. 03/14/2022 12:11 PM Shoulder X-Ray 03/14/22 15:32 XR shoulder RT min 2V routine CLINICAL HISTORY: right shoulder pain. COMPARISON STUDY: No previous studies for comparison. TECHNIQUE: 3 right shoulder views FINDINGS: Bones: There is no evidence for an acute fracture or dislocation. There is no lytic or blastic lesion. Joints: There is mild narrowing of the glenohumeral joint and moderate degenerative changes at the acromial clavicular joint. The bones are in anatomic alignment. Soft tissues: There is no focal soft tissue abnormality. There is no radiopaque foreign body. IMPRESSION: 1. No acute osseous pathology. 2. Osteoarthritis ACT 112: Negative or not required by law. Electronically signed by: Robin Luna M.D. 03/14/2022 8:19 PM ECG Additional Comments: ECG with sinus rhythm, rate 122, right axis deviation, no ischemic changes Code Status & VTE Plan Code Status DNR/DNI VTE Prophylaxis Plan VTE Prophylaxis will be ordered: Yes PG Care Time/CCT Total # of Minutes Spent Total Time Spent with Patient: Total time spent is greater than 50% in coordination of care (as documented) at patient's floor/unit and/or counseling patient: Coding Level of Care Code 51040 Initial Inpt Care Lvl 3 Diagnoses Central venous catheter in place Z78.9 Weakness R53.1 Chronic anemia D64.9 CHF (congestive heart failure) I50.9 HTN (hypertension) I10 IDDM (insulin dependent diabetes mellitus) ESRD (end stage renal disease) on dialysis N18.6; Z99.2 Hyperkalemia E87.5 Thrombocytopenia D69.6 Rapid atrial fibrillation I48.91 Hypotension I95.9 Fever R50.9
[2022-03-14] MEDS ORDERED: FUROSEMIDE 80 MG TAB PO SCH (11:30)
[2022-03-14] MEDS ORDERED: VANCOMYCIN CONSULT ACTIVE PRN (11:54)
[2022-03-14] MEDS ORDERED: VANCOMYCIN HCL 1,000 MG in SODIUM CHLORIDE 0.9% 250 ML IV SCH (12:00)
--- NOTE | 2022-03-14 12:13 | XRay Report ---
SINGLE VIEW CHEST CLINICAL HISTORY: Dyspnea. Atypical chest pain. FINDINGS: An AP, portable, upright chest radiograph is compared to study dated 11/16/2021. The examinat ion is degraded by portable technique, large body habitus, and apical lordotic positioning. A right i nternal jugular central venous catheter is unchanged in position. The heart is enlarged noting athero sclerotic calcification of the thoracic aorta. There is pulmonary vascular congestion. Atelectasis se en at the lung bases. No airspace consolidation or large pleural effusion is identified. No pneumotho rax is seen. The skeletal structures are osteopenic. The bony thorax is grossly intact. IMPRESSION: Cardiomegaly with pulmonary vascular congestion. ACT 112: Negative or not required by law. Electronically signed by: Gavin Holder M.D. 03/14/2022 12:11 PM
[2022-03-14] MEDS: Patient's HEIGHT &/or WEIGHT Needed SCH ×3 (12:41→12:58)
[2022-03-14] MEDS ORDERED: VANCOMYCIN HCL 2,750 MG in SODIUM CHLORIDE 0.9% 500 ML IV ONE (12:45)
[2022-03-14] MEDS ORDERED: PIPERACILLIN/TAZOBACTAM 4.5 GM in DEXTROSE 5% 100 ML IV ONE (12:45)
--- NOTE | 2022-03-14 12:57 | Pharmacy Report ---
Pharmacy PK ABX Note - Date of Service March 14, 2022 - Assessment and Plan Assessment 62 year old F receiving IV Vancomycin and Zosyn for empiric treatment of possible pneumonia. PMH significant for ESRD on HD usually //. BCx pending Procal 108 MRSA nasal swab needs to be ordered Plan Vancomycin * Loading dose: 2750 mg (20mg/kg) IV x 1 dose * Random level ordered for AM labs, dosing based on levels and HD schedule * Ordered MRSA nasal swab Zosyn 4.5g IV X1 then q12h extended interval infusion for HD pt. Pharmacy will continue to follow and will adjust dose/frequency as necessary. Thank you.
[2022-03-14] MEDS: ATORVASTATIN 20 MG TAB PO SCH (13:04)
[2022-03-14] MEDS: EZETIMIBE 10 MG TABLET PO SCH (13:05)
[2022-03-14] MEDS: CALCIUM ACETATE 667 MG CAP/TAB PO SCH ×2 (13:05→18:58)
[2022-03-14] MEDS: PATIROMER CALCIUM SORBITEX 8.4 GM PACK PO SCH ×2 (13:08→13:10)
[2022-03-14] MEDS: INSULIN ASPART PER UNIT SC SCH ×3 (13:25→21:38)
[2022-03-14 13:27] LABS: Albumin Level 3.1 gm/dl (3.4-5.0); BUN Creatinine Ratio 8.4 (10-20); Bilirubin,Total 0.5 mg/dl (0.2-1.0); Calcium 8.4 mg/dl (8.5-10.1); Creatinine Clr Calc Pharmacy 6.8 ml/min; Est GFR (African American) 3.7 ml/min; Est GFR (Non-African American) 3.2 ml/min; Potassium 5.1 mmol/L (3.5-5.1); Total Protein 6.1 gm/dl (6.0-8.3)
[2022-03-14 13:40] LABS: Hematocrit (blood only) 26.4 % (37-47); Hemoglobin 8.4 g/dL (12.0-16.0); Mean Corpuscular Hemoglobin 34.9 pg (25-34); Mean Corpuscular Hgb Conc 31.8 g/dL (32-36); Mean Corpuscular Volume 109.5 fL (80-100); Mean Platelet Volume 11.6 fL (7.4-10.4); Platelet Count 54 K/uL (130-400); RDW Coefficient of Variation 13.9 % (11.5-14.5); Red Blood Count 2.41 M/uL (4.2-5.4); White Blood Count 3.85 K/uL (4.8-10.8)
[2022-03-14 13:41] LABS: Dohle Bodies 2+; Immature Granulocytes % (auto) 2.6 %; Lymphocytes # (auto) 0.18 K/uL (1.2-3.4); Lymphocytes % (auto) 4.7 %; Monocytes # (auto) 0.24 K/uL (0.11-0.59); Monocytes % (auto) 6.2 %; Neutrophils # (auto) 3.33 K/uL (1.4-6.5); Neutrophils % (auto) 86.5 %; Platelet Estimate Decreased (Normal)
[2022-03-14] MEDS: ACETAMINOPHEN 325 MG TAB PO PRN ×2 (13:46→22:21)
[2022-03-14 13:53] LABS: C Reactive Protein 38.99 mg/dl (0-0.5)
[2022-03-14 14:18] LABS: Troponin I High Sensitivity 111.7 pg/ml (0-14)
[2022-03-14 14:33] LABS: Adenovirus PCR Not Detected (NotDetected); Bordetella parapertussis PCR Not Detected (NotDetected); Bordetella pertussis PCR Not Detected (NotDetected); Chlamydia pneumoniae PCR Not Detected (NotDetected); Coronavirus 229E PCR Not Detected (NotDetected); Coronavirus CoV-2 (COVID19)PCR Not Detected (NotDetected); Coronavirus HKU1 PCR Not Detected (NotDetected); Coronavirus NL63 PCR Not Detected (NotDetected); Coronavirus OC43PCR Not Detected (NotDetected); Human Metapneumovirus PCR Not Detected (NotDetected); Influenza A PCR Not Detected (NotDetected); Influenza B PCR Not Detected (NotDetected); Mycoplasma pneumoniae PCR Not Detected (NotDetected); Parainfluenza Virus 1 PCR Not Detected (NotDetected); Parainfluenza Virus 2 PCR Not Detected (NotDetected); Parainfluenza Virus 3 PCR Not Detected (NotDetected); Parainfluenza Virus 4 PCR Not Detected (NotDetected); Respiratory Syncytial VirusPCR Not Detected (NotDetected); Rhinovirus/Enterovirus PCR Not Detected (NotDetected)
[2022-03-14] MEDS ORDERED: DOXYCYCLINE HYCLATE 100 MG in DEXTROSE 5% 100 ML IV SCH (15:00)
[2022-03-14] MEDS ORDERED: HYDROmorphone INJ 0.5 MG/0.5 ML SYR IV STA (15:07)
[2022-03-14] MEDS: LIDOCAINE 5% 1 PATCH TD SCH (18:58)
--- NOTE | 2022-03-14 20:20 | XRay Report ---
XR shoulder RT min 2V routine CLINICAL HISTORY: right shoulder pain. COMPARISON STUDY: No previous studies for comparison. TECHNIQUE: 3 right shoulder views FINDINGS: Bones: There is no evidence for an acute fracture or dislocation. There is no lytic or blastic lesion . Joints: There is mild narrowing of the glenohumeral joint and moderate degenerative changes at the ac romial clavicular joint. The bones are in anatomic alignment. Soft tissues: There is no focal soft tissue abnormality. There is no radiopaque foreign body. IMPRESSION: 1. No acute osseous pathology. 2. Osteoarthritis ACT 112: Negative or not required by law. Electronically signed by: Robin Luna M.D. 03/14/2022 8:19 PM
[2022-03-14] MEDS ORDERED: SODIUM CHLORIDE 0.9% 1000ML 250 ML IV ONE (20:23)
[2022-03-14] MEDS ORDERED: DIGOXIN 250 MCG in SYRINGE 9 ML IV ONE (20:45)
[2022-03-14] MEDS ORDERED: HEPARIN SOD 5,000 UNIT/0.5 ML VIAL SQ SCH (21:00)
[2022-03-14 21:09] LABS: Hematocrit (blood only) 26.9 % (37-47); Hemoglobin 8.6 g/dL (12.0-16.0); Mean Corpuscular Hemoglobin 33.9 pg (25-34); Mean Corpuscular Volume 105.9 fL (80-100); Mean Platelet Volume 12.2 fL (7.4-10.4); Platelet Count 35 K/uL (130-400); RDW Standard Deviation 54.5 fL (36.4-46.3); Red Blood Count 2.54 M/uL (4.2-5.4); White Blood Count 4.86 K/uL (4.8-10.8)
[2022-03-14] MEDS: ALBUMIN 25% 100 mL 25 GM/100 ML VIAL IV SCH ×2 (21:13→22:28)
[2022-03-14 21:39] LABS: Creatinine Clr Calc Pharmacy 13.6 ml/min; Est GFR (African American) 8.7 ml/min; Est GFR (Non-African American) 7.5 ml/min
[2022-03-14] MEDS ORDERED: Nursing to Pharmacy Communication SCH (21:45)
[2022-03-14 21:46] LABS: Basophils # (auto) 0.01 K/uL (0-0.2); Basophils % (auto) 0.2 %; Dohle Bodies 1+; Immature Granulocytes # (auto) 0.07 K/uL (0.00-0.02); Immature Granulocytes % (auto) 1.4 %; Lymphocytes # (auto) 0.38 K/uL (1.2-3.4); Lymphocytes % (auto) 7.8 %; Monocytes # (auto) 0.75 K/uL (0.11-0.59); Monocytes % (auto) 15.4 %; Neutrophils # (auto) 3.65 K/uL (1.4-6.5); Neutrophils % (auto) 75.2 %
[2022-03-14] MEDS ORDERED: STAT IV Infusion **Titration per Protocol STA (22:02)
[2022-03-14] MEDS ORDERED: 0.2 MICRON FILTER SET 1 EACH IV ONE ×2 (22:02→22:24)
[2022-03-14] MEDS ORDERED: AMIODARONE / D5W 360 MG/200 ML BAG IV ONE (22:02)
[2022-03-14] MEDS ORDERED: PHENYLEPHRINE HCL 20 MG in DEXTROSE 5% 500 ML IV SCH (22:15)
[2022-03-14] MEDS ORDERED: AMIODARONE / D5W 360 MG/200 ML BAG IV SCH (22:15)
[2022-03-14] MEDS: PIPERACILLIN/TAZOBACTAM 4.5 GM in DEXTROSE 5% 100 ML IV SCH (22:17)
[2022-03-14] MEDS ORDERED: AMIODARONE / D5W 150 MG/100 ML BAG IV STA (22:24)
[2022-03-14] MEDS: INSULIN GLARGINE SOLOSTAR 100 UNITS/ML 3 ML PEN SC SCH (22:25)
[2022-03-14 22:27] LABS: BUN Creatinine Ratio 7.1 (10-20); Calcium 8.4 mg/dl (8.5-10.1); Magnesium 1.9 mg/dl (1.7-2.4)
--- NOTE | 2022-03-14 22:28 | Critical Care Consultation ---
Date of Consultation March 14, 2022 Assessment & Plan (1) Severe sepsis: Reason Critically Ill: 62-year-old female with ESRD requiring hemodialysis, PAF, and DM type II who is currently undergoing treatment in ICU for severe sepsis with GPC in clusters x4, currently in A. fib RVR requiring ami odarone drip Neuro - [facility] ICU: Negative Cardiac - A. fib RVRpatient with history of proximal A. fib now with heart rate 160s to 180s. -EKG with A. fib RVR. Mild elevation in troponin likely demand ischemia. Monitor -Received digoxin and IV fluid bolus on floor with minimal improvement in rate. Unfortunately patient's pressures are soft and reluctant to start beta- monica, and holding p.o. MTP for now -Phenylephrine ordered if needed. -Patient does have history of CHFr EF, repeat echo -Maximize electrolytes -Continuous monitoring on telemetry Respiratory - Hypoxiachest x-ray consistent with pulmonary congestion likely secondary to ESRD versus CHF -No history of pulmonary disease. Lungs clear to auscultation. No current respiratory distress and maintaining oxygen saturation on nasal cannula -We will hold on diuretics at this time as patient's pressures are currently soft. Will defer to nephrology to maintain fluid balance for euvolemia. -May consider BiPAP if worsening for positive pressure -Continuous monitoring on pulse ox GI - Diabetic/heart healthy diet RENAL/LYTES - ESRD (current hemodialysis)normal scheduled hemodialysis Monday, . She was transferred to [facility] with hyperkalemia and underwent emergent dialysis on arrival. -Patient oliguric and does take Lasix. Will hold for now due to soft pressures -Nephrology consult and managing dialysis schedule/fluid balance -Monitor routine BMPs and replete electrolytes as indicated - Patient is reportedly oliguric. Monitor strict I's and O's ENDO - DM type IIcurrently insulin-dependent. Hemoglobin A1c pending -Continue with basal bolus/sliding scale, ICU hyperglycemic protocol HEME - Anemia of chronic diseaseH&H currently stable, monitor routine CBCs and transfuse if indicated Thrombocytopenia (acute on chronic)normal platelet count 1 20,000, currently 50,000. Suspect can [place] to sepsis. Monitor for now ID - Severe sepsisinitial procalcitonin 108. Blood cultures grew GPC's in clusters x4. MRSA and staph PCR is pending. Nasal MRSA pending -Source suspicious for permacath, vascular consulted -COVID/bio fire negative -Consider endocarditis? May need KIKE -Continue broad-spectrum biotics Zosyn and vancomycin LINES/IV ACCESS - Peripheral IVs DVT PROPHYLAXIS - SCDs CODE STATUSDNR/DNI I have personally spent 55 minutes of critical care time in the direct management of this patient. This is a life/limb threatening event. This includes time spent evaluating patient, direct bedside care, chart review, placing orders, interpretation of diagnostic studies, discussion with consultants, patient, and family members, as well as other required patient management activities. This time is exclusive of all separately billable procedures, and teaching time and separate from and in addition to any other critical care service time. Thank you for allowing us to participate in the care of this patient. Please refer to my attending physician's documentation for any further recommendations. (2) Fever: (3) Hypotension: (4) Thrombocytopenia: (5) Rapid atrial fibrillation: (6) Hyperkalemia: (7) Weakness: (8) Chronic anemia: (9) CHF (congestive heart failure): (10) HTN (hypertension): (11) IDDM (insulin dependent diabetes mellitus): (12) ESRD (end stage renal disease) on dialysis: History of Present Illness Attending Physician: Joanna Espinosa MD History of Present Illness 62-year-old female with past medical history significant for ESRD (hemodialysis Monday/), DM type II HFrEF, PAF (not anticoagulated), HTN, and anemia. Patient presented to [facility] as a direct transfer from [facility] with recent history of generalized weakness, fevers, and shortness of breath. She had recently undergone tunneled permacatheter placement on Monday at [facility] as it was fractured. Since then she has reported right shoulder pain. She underwent hemodialysis earlier today and was being treated on med telemetry. This evening she is now in A. fib RVR and was hypotensive and transferred to ICU. Blood pressure did somewhat improve with albumin and she was started on amiodarone drip but remains uncontrolled A. fib RVR. Her procalcitonin was el evated at 108, lactic acid remained normal. Blood cultures have since grown GPC's in clusters 4/4. She is currently on vancomycin and Zosyn. On arrival to the ICU the patient is alert and oriented and is mentating without issue. She currently denies dizziness or syncope despite soft pressures. She does report mild shortness of breath and states that she had a fever at home but denies cough. She denies headache, nausea or vomiting, chest pain or palpitations, abdominal pain, swelling in hands or feet. She denies any open wounds or infections. Allergies Allergy/AdvReac Type Severity Reaction Status Date / Time allopurinol Allergy Intermediate Hives Verified 11/16/21 16:52 gemfibrozil AdvReac Intermediate Tachycardia Verified 11/16/21 16:52 lisinopril AdvReac Intermediate HIVES PER Verified 11/16/21 16:52 GMG-SOB PER PT. metformin AdvReac Intermediate Diarrhea Verified 11/16/21 16:52 Home Medications Medication Instructions Recorded Confirmed Type atorvastatin 20 mg tablet 20 mg PO QAM 11/16/21 03/14/22 History calcium acetate(phosphat bind) 667 1,334 mg PO TIDM 11/16/21 03/14/22 History mg capsule ezetimibe 10 mg tablet (Zetia) 10 mg PO QAM 11/16/21 03/14/22 History furosemide 80 mg tablet (Lasix) 80 mg PO QAM 11/16/21 03/14/22 History insulin glargine 100 unit/mL 12 unit SUBCUT HS 11/16/21 03/14/22 History subcutaneous solution (Lantus U-100 Insulin) metoprolol succinate 50 mg 50 mg PO QAM 11/16/21 03/14/22 History tablet,extended release 24 hr sodium zirconium cyclosilicate 10 10 g PO 5XWK 11/16/21 03/14/22 History gram oral powder packet (Lokelma) vitamin B complex and vitamin C 1 cap PO QAM 11/16/21 03/14/22 History no.20-folic acid 1 mg capsule (Renal Caps) Patient History Medical History CHF (congestive heart failure) Chronic anemia ESRD (end stage renal disease) on dialysis HTN (hypertension) IDDM (insulin dependent diabetes mellitus) Necrotizing fasciitis Thrombocytopenia Surgical History History of cholecystectomy History of lumbar surgery Family History Other Family history non-contributory Social History Smoking Status: Former smoker Second Hand Exposure: No; Hx Alcohol Use: No Hx Substance Use: No Preferred Language: Yi Communication Ability: Effective Rate Supervisor Required: No Beliefs That Will Affect Care: None Current Living Situation: Alone Current Living Situation Comment: Niece lives next door Other Information That Helps Us Care for You: No Feels Safe at Home: Yes Safety Concerns: Feels Safe At This Time Assistive Devices: None Review of Systems Review of Systems: All systems reviewed & are unremarkable except as noted in HPI & below Physical Exam Constitutional: WD/WN, vitals as above Eyes: PERRL, conjunctivae normal, anicteric sclerae ENMT: external ear and nose normal, oropharynx normal Neck: trachea midline, no thyromegaly Respiratory: normal respiratory effort, lungs clear to auscultation Cardiovascular: Rate/Rhythm: + tachycardic and + irregularly irregular Hea rt Sounds: no murmur Extremities: normal capillary refill; no edema Gastrointestinal (Abdomen): normal bowel sounds, soft, nontender, no hepatosplenomegaly Musculoskeletal: no cyanosis or clubbing, extremities motor strength 5/5 Skin: no rashes, warm and dry Neurologic: PERRL, EOMI, accommodation nl, no face palsy, no dysarthria Psychiatric: A+Ox3, euthymic affect Results & Data Results & Data ([facility]) Vital Signs (Past 12 Hours) Vital Signs Temp Pulse Pulse Resp BP BP Pulse Ox 03/14/22 20:55 180 H 03/14/22 20:18 191 H 20 93 03/14/22 19:54 36.8 C 83 20 108/53 L 93 03/14/22 18:25 36.5 C 104 H 114/76 03/14/22 18:00 106 H 91/50 L 03/14/22 17:40 99 H 119/43 L 03/14/22 17:20 103 H 92/50 L 03/14/22 17:00 81 88/68 L 03/14/22 16:40 90 101/48 L 03/14/22 16:20 104 H 83/48 L 03/14/22 16:00 98 H 114/89 03/14/22 15:40 107 H 84/47 L 03/14/22 15:20 68 85/53 L 03/14/22 15:00 68 105/44 L 03/14/22 14:40 79 102/58 L 03/14/22 14:20 121 H 122/55 L 03/14/22 14:14 36.5 C 123 H Coding Level of Care Code Critical Care 1st 30-74 mins Diagnoses Fever R50.9 Hypotension I95.9 Thrombocytopenia D69.6 Rapid atrial fibrillation I48.91 Hyperkalemia E87.5 Weakness R53.1 Chronic anemia D64.9 CHF (congestive heart failure) I50.9 HTN (hypertension) I10 IDDM (insulin dependent diabetes mellitus) ESRD (end stage renal disease) on dialysis N18.6; Z99.2 Severe sepsis A41.9; R65.20
[2022-03-14] MEDS ORDERED: ACETAMINOPHEN 325 MG TAB PO PRN (22:47)
[2022-03-14 23:35] LABS: Base Excess VBG -1.1 mEq/L; Oxygen Saturation VBG 73.5 %; pH VBG 7.33 (7.36-7.41)
[2022-03-15] MEDS ORDERED: METOPROLOL TARTRATE 1 MG/ML VIAL IV STA ×2 (00:08→16:51)
[2022-03-15] MEDS ORDERED: AMIODARONE / D5W 360 MG/200 ML BAG IV ONE ×2 (00:45→18:15)
[2022-03-15] MEDS ORDERED: MAGNESIUM SULFATE / D5W 1 GM/100 ML BAG IV ONE ×2 (00:45→17:16)
[2022-03-15 02:47] LABS: HBSAG NON-REACTIVE (NON-REACTIVE); Hepatitis B Surface Ab, Quant <5 mIU/mL (> OR = 10)
[2022-03-15 06:23] LABS: Hematocrit (blood only) 24.8 % (37-47); Hemoglobin 7.7 g/dL (12.0-16.0); Mean Corpuscular Hemoglobin 33.8 pg (25-34); Mean Corpuscular Volume 108.8 fL (80-100); Mean Platelet Volume 12.1 fL (7.4-10.4); Platelet Count 42 K/uL (130-400); RDW Coefficient of Variation 14.1 % (11.5-14.5); RDW Standard Deviation 56.2 fL (36.4-46.3); Red Blood Count 2.28 M/uL (4.2-5.4); White Blood Count 3.52 K/uL (4.8-10.8)
[2022-03-15 06:25] LABS: Dohle Bodies 1+; Immature Granulocytes # (auto) 0.01 K/uL (0.00-0.02); Immature Granulocytes % (auto) 0.3 %; Lymphocytes # (auto) 0.61 K/uL (1.2-3.4); Lymphocytes % (auto) 17.3 %; Monocytes # (auto) 0.05 K/uL (0.11-0.59); Monocytes % (auto) 1.4 %; Neutrophils # (auto) 2.85 K/uL (1.4-6.5)
[2022-03-15 06:36] LABS: Albumin Level 3.3 gm/dl (3.4-5.0); BUN Creatinine Ratio 7.4 (10-20); Bilirubin,Total 0.5 mg/dl (0.2-1.0); Calcium 8.5 mg/dl (8.5-10.1); Creatinine Clr Calc Pharmacy 12.8 ml/min; Est GFR (African American) 7.9 ml/min; Est GFR (Non-African American) 6.9 ml/min; Globulin 2.6 gm/dl (2.5-4.0); Magnesium 2.1 mg/dl (1.7-2.4); Phosphorus 6.7 mg/dl (2.5-4.9); Total Protein 5.9 gm/dl (6.0-8.3)
[2022-03-15 06:37] LABS: Albumin Globulin Ratio 1.3 (0.9-2)
[2022-03-15 06:44] LABS: C Reactive Protein 42.22 mg/dl (0-0.5)
[2022-03-15 06:47] LABS: Folate (Folic Acid) > 22.30 ng/ml (>5.38)
[2022-03-15 06:48] LABS: Vitamin B12 > 1500 pg/ml (180-914)
[2022-03-15 07:16] LABS: Estimated Average Glucose 123 mg/dl; Hemoglobin A1C 5.9 % (4.5-5.6)
[2022-03-15] MEDS: EZETIMIBE 10 MG TABLET PO SCH (07:51)
[2022-03-15] MEDS: NEPHROCAPS PO SCH (07:51)
[2022-03-15] MEDS: ATORVASTATIN 20 MG TAB PO SCH (07:51)
[2022-03-15] MEDS: CALCIUM ACETATE 667 MG CAP/TAB PO SCH ×3 (07:51→16:55)
[2022-03-15] MEDS: PIPERACILLIN/TAZOBACTAM 4.5 GM in DEXTROSE 5% 100 ML IV SCH (07:53)
[2022-03-15] MEDS: INSULIN ASPART PER UNIT SC SCH ×4 (07:57→20:20)
--- NOTE | 2022-03-15 08:00 | Hospitalist Progress Note ---
Date of Service March 15, 2022 Assessment & Plan (1) Fever: Plan: Presented to outside hospital with fever at home, generalized weakness, right shoulder pain s/p exchange of right tunneled IJ on 03/11. Sepsis, gram positive bacteremia, not MRSA 4 of 4 blood cultures + on nafcillin, concnern if endograft av fistulae could be involved COVID/BioFire panel here negative CXR without PNA but with pulm edema from volume overload secondary to renal failure PCT significantly elevated Pancytopenic Anaplasmosis smear done here neg, PCR pending UA ordered and pending LFTs normal Shoulder xrays done here show arthritis No evidence of infection at catheter site but very well could have sourced bacteremia -given blood cultures narrowed antibiotics to nafcillin ID consult pending (2) Rapid atrial fibrillation: Plan: went into [facility] with initial SVT rates 200s evening of 03/14 did not slow down with vagal maneuvers at bedside with associated hypotension with BPs in 70s systolic give digoxin 250mcg IV x 1 amiodarone gtt ensued conversion to NSR EF 35% on ECHO 11/2021 not on AC as outpt due to h/o bleeding as per pt, reportedly did have epistaxis that required 5 u prbc per conversation with icu, pt willing to retry, may use heparin gtt after discussion with cardiology, will wait until platelets are improved -cardiology feels pt may be eventual possible watchman candidate (3) Hypotension: Plan: soft BPs typically due to HD but now worsening with WYATT and likel septic shock given fever lactate negative did not need pressors (4) Hyperkalemia: Plan: secondary to ESRD improved after kayexolate, IV insulin, calcium gluconate at OSH now s/o HD on 03/14 at [place] Nephrology consult appreciated continue Patiromer po 5x/week (5) ESRD (end stage renal disease) on dialysis: Plan: only goes to HD on / and known for missing sessions at times as per Nephrology notes on HD for 2 years has TIJ perm cath in right side-just replaced on 03/11 received HD 03/14 for hyperkalemia appreciate Nephro consult continue Phos low tid, Nephrocaps replace Lokelma with Patiromer while here (6) Thrombocytopenia: Plan: plts low at 52 here lower than previous 120s baseline likely sepsis induced avoid heparin SQ for now (7) CHF (congestive heart failure): Plan: HFrEF as per ECHO 11/2021, EF 35% mange fluid status with HD hold home metoprolol for hypotension (8) Weakness: Plan: due to sepsis (9) Chronic anemia: Plan: hgb has fallen with sepsis and will follow on protonix low iron replete b12 and folate follow CBC (10) HTN (hypertension): Plan: hold home metoprolol due to hypotension (11) Central venous catheter in place: Plan: tunneled IJ removed and cultures, has left AC endograft, and peripheral IV (12) IDDM (insulin dependent diabetes mellitus): Plan: continue Lantus, Novolog, adjust as needed, typically well controlled Plan: DVT porph-SCDs, hold heparin SQ due to thrombocytopenia out of icu 03/15 DNR/DNI as per d/w patient Admission and Anticipated Discharge Date Admission Date: March 14, 2022 Subjective pt is awake and alert, she feels improved from when she arrives, rate controlled afib/flutter, no sensation of palpations, right tunnel cath removed Review of Systems Review of Systems: Moderate distress and fatigue no headache, no visual changes no speech or swallowing issues no chest pain, pressure or palpitations mild shortness of breath, no cough or wheezes no abdominal pain, nausea or vomiting, diarrhea or constipation no dysuria, hematuria or frequency right shoulder pain that is chronic no back pain, CVA tenderness or radicular pain no bruising, bleeding or rashes no focal signs of weakness or numbness or altered sensation no complaints of anxiety or depression.. Physical Exam Physical Exam: The patient appeared stable. Vital signs as documented. Head exam is normocephalic atraumatic Neck is without JVD, thyromegaly, or carotid bruits. Lungs diminished at bases, Cardiac exam, now in nsr. no stigmata of endocarditis at present Abdominal exam reveals normal bowel sounds, soft non tender, no masses Extremities are nonedematous and both pedal pulses are present thrill in left antecubitus Neurologic exam is alert and oriented, no focal loss of strength or sensation Psychologically is without concerns for anxiety or depression.. Results & Data Results & Data ([facility]) Vital Signs (Past 12 Hours) Vital Signs Temp Pulse Pulse Pulse Resp BP BP 03/15/22 07:01 100 H 16 104/71 03/15/22 07:00 101 H 15 03/15/22 06:31 98 H 18 97/55 L 03/15/22 06:30 97 H 16 03/15/22 06:20 98.1 F 03/15/22 06:01 104 H 19 82/55 L 03/15/22 06:00 94 H 17 03/15/22 05:31 101 H 15 121/55 L 03/15/22 05:30 101 H 17 03/15/22 05:01 100 H 16 117/61 03/15/22 05:00 103 H 15 03/15/22 04:30 95 H 19 03/15/22 04:01 98 H 17 93/63 L 03/15/22 04:00 99 H 17 03/15/22 03:30 138 H 15 03/15/22 03:00 130 H 17 86/59 L 03/15/22 02:31 146 H 16 81/55 L 03/15/22 02:30 98.2 F 125 H 18 03/15/22 02:01 145 H 18 96/50 L 03/15/22 02:00 135 H 19 03/15/22 01:30 130 H 18 03/15/22 01:03 143 H 17 89/49 L 03/15/22 01:00 135 H 19 03/15/22 00:31 138 H 15 82/64 L 03/15/22 00:30 129 H 17 03/15/22 00:21 133 H 19 03/15/22 00:17 138 H 134/74 03/15/22 00:10 141 H 18 03/15/22 00:01 144 H 19 134/74 03/15/22 00:00 138 H 20 03/14/22 23:56 157 H 03/14/22 23:50 129 H 18 03/14/22 23:40 144 H 17 03/14/22 23:30 139 H 19 124/70 03/14/22 23:20 152 H 18 03/14/22 23:10 138 H 21 108/56 L 03/14/22 23:00 144 H 17 90/56 L 03/14/22 22:50 142 H 24 03/14/22 22:46 150 H 19 82/50 L 03/14/22 22:40 143 H 21 03/14/22 22:32 159 H 24 96/50 L 03/14/22 22:31 151 H 25 H 68/48 L 03/14/22 22:30 184 H 27 H 03/14/22 22:20 155 H 27 H 03/14/22 22:10 186 H 31 H 03/14/22 22:08 100.8 F H 176 H 33 H 104/61 03/14/22 22:01 172 H 38 H 03/14/22 21:51 158 H 19 03/14/22 21:38 168 H 20 94/59 L 03/14/22 21:18 184 H 20 81/45 L 03/14/22 21:12 163 H 20 60/38 L 03/14/22 20:55 180 H 03/14/22 20:50 172 H 20 90/54 L 03/14/22 20:36 218 H 18 74/46 L 03/14/22 20:18 191 H 20 Pulse Ox 03/15/22 07:01 94 03/15/22 07:00 94 03/15/22 06:31 94 03/15/22 06:30 94 03/15/22 06:20 03/15/22 06:01 96 03/15/22 06:00 97 03/15/22 05:31 96 03/15/22 05:30 95 03/15/22 05:01 96 03/15/22 05:00 96 03/15/22 04:30 96 03/15/22 04:01 94 03/15/22 04:00 95 03/15/22 03:30 95 03/15/22 03:00 96 03/15/22 02:31 95 03/15/22 02:30 95 03/15/22 02:01 96 03/15/22 02:00 96 03/15/22 01:30 96 03/15/22 01:03 96 03/15/22 01:00 96 03/15/22 00:31 96 03/15/22 00:30 96 03/15/22 00:21 98 03/15/22 00:17 03/15/22 00:10 97 03/15/22 00:01 97 03/15/22 00:00 97 03/14/22 23:56 03/14/22 23:50 97 03/14/22 23:40 98 03/14/22 23:30 98 03/14/22 23:20 98 03/14/22 23:10 98 03/14/22 23:00 98 03/14/22 22:50 98 03/14/22 22:46 98 03/14/22 22:40 98 03/14/22 22:32 98 03/14/22 22:31 98 03/14/22 22:30 98 03/14/22 22:20 98 03/14/22 22:10 98 03/14/22 22:08 96 03/14/22 22:01 88 L 03/14/22 21:51 03/14/22 21:38 94 03/14/22 21:18 92 03/14/22 21:12 92 03/14/22 20:55 03/14/22 20:50 93 03/14/22 20:36 92 03/14/22 20:18 93 PG Care Time/CCT Total # of Minutes Spent Total Time Spent with Patient: Total time spent is greater than 50% in coordination of care (as documented) at patient's floor/unit and/or counseling patient: Coding Level of Care Code 34383 Subseq Hosp Care Lvl 3 Diagnoses Fever R50.9 Hypotension I95.9 Hyperkalemia E87.5 Rapid atrial fibrillation I48.91 ESRD (end stage renal disease) on dialysis N18.6; Z99.2 Thrombocytopenia D69.6 CHF (congestive heart failure) I50.9 Weakness R53.1 Chronic anemia D64.9 HTN (hypertension) I10 Central venous catheter in place Z78.9 IDDM (insulin dependent diabetes mellitus)
[2022-03-15] MEDS ORDERED: METOPROLOL SUCC 50MG EXT REL TAB PO SCH (09:00)
[2022-03-15] MEDS ORDERED: fentaNYL citrate 100 MCG/2 ML VIAL IV STA (09:08)
--- NOTE | 2022-03-15 09:19 | Consultation ---
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 Pt also seen by Dr Arevalo, planning to remove her permcath in room today. Her LUE AV graft should be usable for HD; if impossible to access or sign of infection of graft noted (including persistent bacteremia), please call. Patient was seen, examined, and chart reviewed. Agree with exam and treatment plan of the Vascular PA. Patient for remocal of permcath today at bedside. I have discussed the risks options and benefits of the procedure with the patient. The patient understands the risks options and benefits and agrees to the procedure. History of Present Illness Reason for Consultation: bacteremia, infected permcath Attending Physician: Josh Munguia MD History of Present Illness 62 yo f with multiple medical problems, including ESRD on HD, CHF, DMII, anemia, admitted with fever/sepsis and found to have bacteremia, seen in consultation today for removal of permcath d/t infection. Pt states she has been on HD for a long time, but they have tried 2 vein AVF which failed, so she had a LUE AV graft placed in January. It has not yet been accessed. She had permcath exchange at outside facility about5 days ago, and has had R shoulder discomfort since. HHad fever at home. Denies CHILEL, chest pain, SOB, abd pain, N/V, rest pain, other complaints. Blood cultures positive for gram positive cocci in less than 24 hrs. Allergies Allergy/AdvReac Type Severity Reaction Status Date / Time allopurinol Allergy Intermediate Hives Verified 11/16/21 16:52 gemfibrozil AdvReac Intermediate Tachycardia Verified 11/16/21 16:52 lisinopril AdvReac Intermediate HIVES PER Verified 11/16/21 16:52 GMG-SOB PER PT. metformin AdvReac Intermediate Diarrhea Verified 11/16/21 16:52 Home Medications Medication Instructions Recorded Confirmed Type atorvastatin 20 mg tablet 20 mg PO QAM 11/16/21 03/14/22 History calcium acetate(phosphat bind) 667 1,334 mg PO TIDM 11/16/21 03/14/22 History mg capsule ezetimibe 10 mg tablet (Zetia) 10 mg PO QAM 11/16/21 03/14/22 History furosemide 80 mg tablet (Lasix) 80 mg PO QAM 11/16/21 03/14/22 History insulin glargine 100 unit/mL 12 unit SUBCUT HS 11/16/21 03/14/22 History subcutaneous solution (Lantus U-100 Insulin) metoprolol succinate 50 mg 50 mg PO QAM 11/16/21 03/14/22 History tablet,extended release 24 hr sodium zirconium cyclosilicate 10 10 g PO 5XWK 11/16/21 03/14/22 History gram oral powder packet (Lokelma) vitamin B complex and vitamin C 1 cap PO QAM 11/16/21 03/14/22 History no.20-folic acid 1 mg capsule (Renal Caps) Patient History Medical History (Updated 03/15/22 @ 09:16 by Brenda Kurtz PA-C) Central venous line infection CHF (congestive heart failure) Chronic anemia ESRD (end stage renal disease) on dialysis HTN (hypertension) IDDM (insulin dependent diabetes mellitus) Necrotizing fasciitis Thrombocytopenia Surgical History History of cholecystectomy History of lumbar surgery Family History Other Family history non-contributory Social History Smoking Status: Former smoker Second Hand Exposure: No; Hx Alcohol Use: No Hx Substance Use: No Preferred Language: Luxembourgish Communication Ability: Effective Log Manager Required: No Beliefs That Will Affect Care: None Current Living Situation: Alone Current Living Situation Comment: Niece lives next door Other Information That Helps Us Care for You: No Feels Safe at Home: Yes Safety Concerns: Feels Safe At This Time Assistive Devices: None Review of Systems Review of Systems: All systems reviewed & are unremarkable except as noted in HPI & below Physical Exam Constitutional: WD/WN, vitals as above + morbidly obese and cooperative; not in distress Neck: trachea midline Respiratory: normal respiratory effort, lungs clear to auscultation Au scultation: + diminished lung sounds Cardiovascular: Rate/Rhythm: + irregularly irregular Extremities: + va scular access device (R chest wall, + tender, erythema, no draiange) and + AV fistula (LUE AV graft with +thrill/bruit, nontender, no erythema) Gastrointestinal (Abdomen): Inspection/Auscultation: abdomen normal to inspection and normal bowel sounds Percussion/Palpation: abdomen soft; abdomen nontender Musculoskeletal: no cyanosis or clubbing, extremities motor strength 5/5 Skin: no rashes, warm and dry Neurologic: moves all extremities and awake; no focal motor deficits and not confused Psychiatric: A+Ox3, euthymic affect Results & Data ([facility]) Vital Signs (Past 12 Hours) Vital Signs Temp Pulse Pulse Resp BP BP Pulse Ox 03/15/22 09:01 100 H 23 104/65 92 03/15/22 09:00 100 H 17 93 03/15/22 08:01 101 H 26 H 111/59 L 95 03/15/22 08:00 36.6 C 101 H 26 H 95 03/15/22 07:31 105 H 27 H 99/65 L 94 03/15/22 07:01 100 H 16 104/71 94 03/15/22 07:00 101 H 15 94 03/15/22 06:31 98 H 18 97/55 L 94 03/15/22 06:30 97 H 16 94 03/15/22 06:20 36.7 C 03/15/22 06:01 104 H 19 82/55 L 96 03/15/22 06:00 94 H 17 97 03/15/22 05:31 101 H 15 121/55 L 96 03/15/22 05:30 101 H 17 95 03/15/22 05:01 100 H 16 117/61 96 03/15/22 05:00 103 H 15 96 03/15/22 04:30 95 H 19 96 03/15/22 04:01 98 H 17 93/63 L 94 03/15/22 04:00 99 H 17 95 03/15/22 03:30 138 H 15 95 03/15/22 03:00 130 H 17 86/59 L 96 03/15/22 02:31 146 H 16 81/55 L 95 03/15/22 02:30 36.8 C 125 H 18 95 03/15/22 02:01 145 H 18 96/50 L 96 03/15/22 02:00 135 H 19 96 03/15/22 01:30 130 H 18 96 03/15/22 01:03 143 H 17 89/49 L 96 03/15/22 01:00 135 H 19 96 03/15/22 00:31 138 H 15 82/64 L 96 03/15/22 00:30 129 H 17 96 03/15/22 00:21 133 H 19 98 03/15/22 00:17 138 H 134/74 03/15/22 00:10 141 H 18 97 03/15/22 00:01 144 H 19 134/74 97 03/15/22 00:00 138 H 20 97 03/14/22 23:56 157 H 03/14/22 23:50 129 H 18 97 03/14/22 23:40 144 H 17 98 03/14/22 23:30 139 H 19 124/70 98 03/14/22 23:20 152 H 18 98 03/14/22 23:10 138 H 21 108/56 L 98 03/14/22 23:00 144 H 17 90/56 L 98 03/14/22 22:50 142 H 24 98 03/14/22 22:46 150 H 19 82/50 L 98 03/14/22 22:40 143 H 21 98 03/14/22 22:32 159 H 24 96/50 L 98 03/14/22 22:31 151 H 25 H 68/48 L 98 03/14/22 22:30 184 H 27 H 98 03/14/22 22:20 155 H 27 H 98 03/14/22 22:10 186 H 31 H 98 03/14/22 22:08 38.2 C H 176 H 33 H 104/61 96 03/14/22 22:01 172 H 38 H 88 L 03/14/22 21:51 158 H 19 03/14/22 21:38 168 H 20 94/59 L 94 03/14/22 21:18 184 H 20 81/45 L 92 03/14/22 21:12 163 H 20 60/38 L 92
--- NOTE | 2022-03-15 09:20 | Post Operative Brief Note ---
Immediate Post Op Note v1 Date of Surgery March 15, 2022 Pre & Post Diagnosis Pre op dx: infected permcath Post op dx: infected permcath I identified the patient and participated in the time-out.: Yes Procedure Removal of permcath Surgeon Kalpesh Arevalo MD Research Neuropsychologist MD [place] Estimated Blood Loss 0 Findings Consistent with Post-Op Diagnosis Specimens tip sent for culture Anesthesia Type None Complications none Disposition Accompanied Patient To Recovery: No Disposition: Surgical ICU
[2022-03-15] MEDS: PATIROMER CALCIUM SORBITEX 8.4 GM PACK PO SCH (09:27)
[2022-03-15] MEDS: LIDOCAINE 5% 1 PATCH TD SCH (09:27)
--- NOTE | 2022-03-15 09:31 | Cardiology Consultation ---
Date of Consultation March 15, 2022 Assessment & Plan (1) Paroxysmal atrial fibrillation: (2) Cardiomyopathy: (3) Bacteremia: (4) Pancytopenia: (5) Thrombocytopenia: (6) ESRD (end stage renal disease) on dialysis: ASSESSMENT/PLAN: 1. Paroxysmal atrial fibrillation: Converted to sinus rhythm with amiodarone. Not a new diagnosis for her. Continue amiodarone and can initiate amiodarone 400 mg p.o. b.i.d. for a loading dose. She did not tolerate rapid ventricular rate in the setting of sepsis, as she was significantly hypotensive. Would try to maintain sinus rhythm. If/when safe, would recommend anticoagulation therapy for stroke risk reduction. Unfortunately, she is thrombocytopenic and also had significant bleeding per her report while on Eliquis, requiring 5 units of packed red blood cells. May be a candidate for Watchman device, although would not pursue such in the setting of bacteremia. This can be followed up as an outpatient with her local providers. 2. Cardiomyopathy with history of heart failure with reduced EF: Volume status is managed by Nephrology via hemodialysis and also Lasix. She does not appear to be significantly hypervolemic today following dialysis yesterday. Would recommend resuming metoprolol succinate 50 mg daily tomorrow if blood pressure remains stable. She is not on ARNI/ACEI, aldosterone receptor antagonist, SGLT 2 inhibitor, due to end-stage renal disease. LV systolic function may be acutely worsened in the setting of AFib with RVR. If no significant improvement, could consider ICD for primary prevention, although would not pursue during this hospital stay due to bacteremia. This should be followed up as an outpatient by her local providers. 3. Pancytopenia: Thrombocytopenia acutely worsened compared to baseline. May be due to sepsis. Defer to critical care team and primary hospitalist service. 4. Bacteremia: Treatment as per primary hospitalist service, critical Care Service, and Infectious Disease (consult pending). Presentation symptoms occurred shortly after replacing her central venous access, and therefore suspect line infection. 5. End-stage renal disease on HD: As per Nephrology. 6. Disposition: Cardiology will continue to follow. Patient care discussed with Dr. Mukherjee of the critical care team. On discharge, would recommend that she follow-up with her local hair or beauty salon assistant. Thank you for allowing me to participate in the care of your patient. Please call for any other questions or concerns. Sincerely, Martinez Perez M.D. History of Present Illness Reason for Consultation: "Rapid atrial fibrillation" Requesting Physician: Dr. Espinosa Attending Physician: Josh Munguia MD History of Present Illness Ms. Solares is a very pleasant 62-year-old female with history significant for paroxysmal atrial fibrillation, cardiomyopathy, hypertension, type 2 diabetes, heart failure with reduced EF, ESRD on hemodialysis (Monday and ), left upper extremity AV fistula, and chronic anemia with thrombocytopenia. She has a history of left lower extremity DVT following extended travel and had significant bleeding requiring PRBC x5 and platelet transfusion while on Eliquis for the DVT. She was transferred to [facility] on 03/14/2022 with sepsis. She was found to have positive blood cultures demonstrating Staph aureus bacteremia. She presented to [facility] with fevers, weakness, and generalized aches. She reports having a fever on 03/13/2022 as high as 101.3 F. She started feeling ill on 03/12/2022. On 03/11/2022, she underwent catheter replacement for her hemodialysis and has not felt well since. She has developed right shoulder pain and also pain at the new catheter site. Once admitted here, she was transferred to ICU as she was noted to be hypotensive with recorded blood pressure as low as 68/48 in the setting of AFib with RVR. Her heart rate was as high as the 200s while in AFib. On presentation she was noted to be in sinus tachycardia. In the ICU, she was placed on an amiodarone drip by the critical care team and she converted to sinus rhythm at 3:45 a.m. on 03/15/2022. She typically has mild thrombocytopenia however her platelet level has decreased during this hospital stay to a low of 35. She is chronically anemic and noted to have a hemoglobin as low as 7.7 during this hospital stay. Overall, she feels much better now than she did on presentation. She denies shortness of breath, chest pain, palpitations, syncope, melena, hematochezia, or hematuria. She has chronic and stable lower extremity edema. She reports being on Eliquis in the past for right lower extremity DVT following long travel. She developed hemorrhaging out of her mouth and nose and underwent PRBC transfusion x5 and also platelet transfusion x1. Anticoagulation therapy has since been discontinued by her local providers. She reports a history of reduced heart pumping function and also paroxysmal atrial fibrillation. She has not required electrical cardioversion. She has no history of stroke or TIA. She states that she is active but uses a walker to assist with her ambulation. She continues to make urine although less than before dialysis. She had COVID-19 infection in November of 2021. Review of systems: As above. Review of systems otherwise negative/unremarkable. Family history: No known premature CAD. Social history: She quit smoking in 2018 after approximately 15 pack years. She denies alcohol or drug abuse. . No children. She lives alone. Her niece lives next door. 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 She was unaccompanied in her hospital room. Allergies Allergy/AdvReac Type Severity Reaction Status Date / Time allopurinol Allergy Intermediate Hives Verified 11/16/21 16:52 gemfibrozil AdvReac Intermediate Tachycardia Verified 11/16/21 16:52 lisinopril AdvReac Intermediate HIVES PER Verified 11/16/21 16:52 GMG-SOB PER PT. metformin AdvReac Intermediate Diarrhea Verified 11/16/21 16:52 Home Medications Medication Instructions Recorded Confirmed Type atorvastatin 20 mg tablet 20 mg PO QAM 11/16/21 03/14/22 History calcium acetate(phosphat bind) 667 1,334 mg PO TIDM 11/16/21 03/14/22 History mg capsule ezetimibe 10 mg tablet (Zetia) 10 mg PO QAM 11/16/21 03/14/22 History furosemide 80 mg tablet (Lasix) 80 mg PO QAM 11/16/21 03/14/22 History insulin glargine 100 unit/mL 12 unit SUBCUT HS 11/16/21 03/14/22 History subcutaneous solution (Lantus U-100 Insulin) metoprolol succinate 50 mg 50 mg PO QAM 11/16/21 03/14/22 History tablet,extended release 24 hr sodium zirconium cyclosilicate 10 10 g PO [id number] 11/16/21 03/14/22 History gram oral powder packet (Lokelma) vitamin B complex and vitamin C 1 cap PO QAM 11/16/21 03/14/22 History no.20-folic acid 1 mg capsule (Renal Caps) Patient History Medical History (Updated 03/15/22 @ 14:52 by Cain Perez MD) AV fistula Cardiomyopathy Central venous line infection CHF (congestive heart failure) Chronic anemia DVT (deep venous thrombosis) ESRD (end stage renal disease) on dialysis HTN (hypertension) IDDM (insulin dependent diabetes mellitus) Necrotizing fasciitis Pancytopenia Paroxysmal atrial fibrillation Thrombocytopenia Surgical History History of cholecystectomy History of lumbar surgery Family History Other Family history non-contributory Social History Smoking Status: Former smoker Second Hand Exposure: No; Hx Alcohol Use: No Hx Substance Use: No Preferred Language: Swedish Communication Ability: Effective Clinical Phlebotomist Required: No Beliefs That Will Affect Care: None marital status: Current Living Situation: Alone Current Living Situation Comment: Niece lives next door Other Information That Helps Us Care for You: No Feels Safe at Home: Yes Safety Concerns: Feels Safe At This Time Assistive Devices: Walker Physical Exam Physical Exam: Gen.: No acute distress. Alert and oriented. HEENT: Anicteric sclera. Neck: Thick neck. No bruits. Normal carotid upstrokes bilaterally. Cardiac: PMI was nonpalpable. No ventricular heave. Regular. Normal S1-S2. No murmurs, rubs, or gallops. Pulmonary: Decreased breath sounds bilaterally, but otherwise clear to auscultation bilaterally without wheezes, rales, or rhonchi. Abdomen: Soft, nontender, nondistended, with normoactive bowel sounds. No bruits noted. Extremities: 2+ right radial pulse. Left upper extremity AV fistula with palpable thrill and audible bruit. 2+ dorsalis pedis pulses bilaterally. No edema or cyanosis. Right shoulder tender to palpation without erythema. Psychiatric: Affect appears appropriate. Chest: Right upper chest catheter in place with erythema and tenderness. No discharge noted. Results & Data ([facility]) Vital Signs (Past 12 Hours) Vital Signs Temp Pulse Pulse Resp BP BP Pulse Ox 03/15/22 09:01 100 H 23 104/65 92 03/15/22 09:00 100 H 17 93 03/15/22 08:01 101 H 26 H 111/59 L 95 03/15/22 08:00 36.6 C 101 H 26 H 95 03/15/22 07:31 105 H 27 H 99/65 L 94 03/15/22 07:01 100 H 16 104/71 94 03/15/22 07:00 101 H 15 94 03/15/22 06:31 98 H 18 97/55 L 94 03/15/22 06:30 97 H 16 94 03/15/22 06:20 36.7 C 03/15/22 06:01 104 H 19 82/55 L 96 03/15/22 06:00 94 H 17 97 03/15/22 05:31 101 H 15 121/55 L 96 03/15/22 05:30 101 H 17 95 03/15/22 05:01 100 H 16 117/61 96 03/15/22 05:00 103 H 15 96 03/15/22 04:30 95 H 19 96 03/15/22 04:01 98 H 17 93/63 L 94 03/15/22 04:00 99 H 17 95 03/15/22 03:30 138 H 15 95 03/15/22 03:00 130 H 17 86/59 L 96 03/15/22 02:31 146 H 16 81/55 L 95 03/15/22 02:30 36.8 C 125 H 18 95 03/15/22 02:01 145 H 18 96/50 L 96 03/15/22 02:00 135 H 19 96 03/15/22 01:30 130 H 18 96 03/15/22 01:03 143 H 17 89/49 L 96 03/15/22 01:00 135 H 19 96 03/15/22 00:31 138 H 15 82/64 L 96 03/15/22 00:30 129 H 17 96 03/15/22 00:21 133 H 19 98 03/15/22 00:17 138 H 134/74 03/15/22 00:10 141 H 18 97 03/15/22 00:01 144 H 19 134/74 97 03/15/22 00:00 138 H 20 97 03/14/22 23:56 157 H 03/14/22 23:50 129 H 18 97 03/14/22 23:40 144 H 17 98 03/14/22 23:30 139 H 19 124/70 98 03/14/22 23:20 152 H 18 98 03/14/22 23:10 138 H 21 108/56 L 98 03/14/22 23:00 144 H 17 90/56 L 98 03/14/22 22:50 142 H 24 98 03/14/22 22:46 150 H 19 82/50 L 98 03/14/22 22:40 143 H 21 98 03/14/22 22:32 159 H 24 96/50 L 98 03/14/22 22:31 151 H 25 H 68/48 L 98 03/14/22 22:30 184 H 27 H 98 03/14/22 22:20 155 H 27 H 98 03/14/22 22:10 186 H 31 H 98 03/14/22 22:08 38.2 C H 176 H 33 H 104/61 96 03/14/22 22:01 172 H 38 H 88 L 03/14/22 21:51 158 H 19 03/14/22 21:38 168 H 20 94/59 L 94 Laboratory Results Laboratory Results - last 24 hr 03/14/22 03/14/22 03/14/22 12:24 12:24 14:17 WBC RBC Hgb Hct MCV MCH MCHC RDW Std Deviation RDW Coeff of Wiley Plt Count MPV Immature Gran % (Auto) Neut % (Auto) Lymph % (Auto) [place] % (Auto) Eos % (Auto) Baso % (Auto) Neut # (Auto) Lymph # (Auto) [place] # (Auto) Eos # (Auto) Baso # (Auto) Immature Gran # (Auto) Dohle Bodies VBG pH VBG pCO2 VBG pO2 VBG HCO3 VBG O2 Saturation VBG Base Excess Barometric Pressure Sodium Potassium Chloride Carbon Dioxide Anion Gap BUN Creatinine Est Cr Clr Drug Dosing Est GFR ( Amer) Est GFR (Non-Af Amer) BUN/Creatinine Ratio Glucose POC Glucose Estimat Average Glucose Hemoglobin A1c Lactate Calcium Phosphorus Magnesium Iron TIBC Unsaturated IBC Transferrin % Sat Ferritin Total Bilirubin AST ALT Alkaline Phosphatase Troponin I High Sens C-Reactive Protein Total Protein Albumin Globulin Albumin/Globulin Ratio Vitamin B12 Folate Procalcitonin Urine Color Urine Appearance Urine pH Ur Specific [place] Urine Protein Urine Glucose (UA) Urine Ketones Urine Blood Urine Nitrite Urine Bilirubin Urine Urobilinogen Ur Leukocyte Esterase Urine WBC (Auto) Urine RBC (Auto) U Hyaline Cast (Auto) U Epithel Cells (Auto) Urine Bacteria (Auto) Ur Renal Epithelial Cell Urine Crystals Calcium Oxalate Crystal Uric Acid Crystals Triple Phos Crystals Other Crystals Amorphous Sediment Granular Casts Waxy Casts RBC Casts WBC Casts Other Casts Urine Mucus Urine Other Urine Trichomonas Urine Yeast Urine Sperm Ur Oval Fat Bodies Nasal Screen MRSA (PCR) Random Vancomycin Digoxin Anaplasma Smear See Comment Hep Bs Antigen NON-REACTIVE Hep Bs Ag Confirmation TNP Hep Bs Antibody, Quant <5 L Bld Cult Staph aureus PCR Positive A Blood Culture MRSA PCR Negative Blood Type Antibody Screen 03/14/22 03/14/22 03/14/22 18:37 19:07 20:33 WBC RBC Hgb Hct MCV MCH MCHC RDW Std Deviation RDW Coeff of Wiley Plt Count MPV Immature Gran % (Auto) Neut % (Auto) Lymph % (Auto) [place] % (Auto) Eos % (Auto) Baso % (Auto) Neut # (Auto) Lymph # (Auto) [place] # (Auto) Eos # (Auto) Baso # (Auto) Immature Gran # (Auto) Dohle Bodies VBG pH VBG pCO2 VBG pO2 VBG HCO3 VBG O2 Saturation VBG Base Excess Barometric Pressure Sodium Potassium Chloride Carbon Dioxide Anion Gap BUN Creatinine Est Cr Clr Drug Dosing Est GFR ( Amer) Est GFR (Non-Af Amer) BUN/Creatinine Ratio Glucose POC Glucose 143 H 185 H Estimat Average Glucose Hemoglobin A1c Lactate Calcium Phosphorus Magnesium Iron TIBC Unsaturated IBC Transferrin % Sat Ferritin Total Bilirubin AST ALT Alkaline Phosphatase Troponin I High Sens 120.1 H* C-Reactive Protein Total Protein Albumin Globulin Albumin/Globulin Ratio Vitamin B12 Folate Procalcitonin Urine Color Urine Appearance Urine pH Ur Specific [place] Urine Protein Urine Glucose (UA) Urine Ketones Urine Blood Urine Nitrite Urine Bilirubin Urine Urobilinogen Ur Leukocyte Esterase Urine WBC (Auto) Urine RBC (Auto) U Hyaline Cast (Auto) U Epithel Cells (Auto) Urine Bacteria (Auto) Ur Renal Epithelial Cell Urine Crystals Calcium Oxalate Crystal Uric Acid Crystals Triple Phos Crystals Other Crystals Amorphous Sediment Granular Casts Waxy Casts RBC Casts WBC Casts Other Casts Urine Mucus Urine Other Urine Trichomonas Urine Yeast Urine Sperm Ur Oval Fat Bodies Nasal Screen MRSA (PCR) Random Vancomycin Digoxin Anaplasma Smear Hep Bs Antigen Hep Bs Ag Confirmation Hep Bs Antibody, Quant Bld Cult Staph aureus PCR Blood Culture MRSA PCR Blood Type Antibody Screen 03/14/22 03/14/22 03/14/22 20:43 20:43 21:10 WBC 4.86 RBC 2.54 L Hgb 8.6 L Hct 26.9 L MCV 105.9 H MCH 33.9 MCHC 32.0 RDW Std Deviation 54.5 H RDW Coeff of Wiley 14.0 Plt Count 35 L MPV 12.2 H Immature Gran % (Auto) 1.4 Neut % (Auto) 75.2 Lymph % (Auto) 7.8 [place] % (Auto) 15.4 Eos % (Auto) 0.0 Baso % (Auto) 0.2 Neut # (Auto) 3.65 Lymph # (Auto) 0.38 L [place] # (Auto) 0.75 H Eos # (Auto) 0.00 Baso # (Auto) 0.01 Immature Gran # (Auto) 0.07 H Dohle Bodies 1+ VBG pH VBG pCO2 VBG pO2 VBG HCO3 VBG O2 Saturation VBG Base Excess Barometric Pressure Sodium 137 Potassium Chloride 99 Carbon Dioxide 22 Anion Gap 16 H BUN 40 H D Creatinine 5.65 H* D Est Cr Clr Drug Dosing 13.6 Est GFR ( Amer) 8.7 Est GFR (Non-Af Amer) 7.5 BUN/Creatinine Ratio 7.1 L Glucose 177 H POC Glucose Estimat Average Glucose Hemoglobin A1c Lactate Calcium 8.4 L Phosphorus Magnesium 1.9 Iron TIBC Unsaturated IBC Transferrin % Sat Ferritin Total Bilirubin AST ALT Alkaline Phosphatase Troponin I High Sens C-Reactive Protein Total Protein Albumin Globulin Albumin/Globulin Ratio Vitamin B12 Folate Procalcitonin Urine Color Urine Appearance Urine pH Ur Specific [place] Urine Protein Urine Glucose (UA) Urine Ketones Urine Blood Urine Nitrite Urine Bilirubin Urine Urobilinogen Ur Leukocyte Esterase Urine WBC (Auto) Urine RBC (Auto) U Hyaline Cast (Auto) U Epithel Cells (Auto) Urine Bacteria (Auto) Ur Renal Epithelial Cell Urine Crystals Calcium Oxalate Crystal Uric Acid Crystals Triple Phos Crystals Other Crystals Amorphous Sediment Granular Casts Waxy Casts RBC Casts WBC Casts Other Casts Urine Mucus Urine Other Urine Trichomonas Urine Yeast Urine Sperm Ur Oval Fat Bodies Nasal Screen MRSA (PCR) Random Vancomycin Digoxin Anaplasma Smear Hep Bs Antigen Hep Bs Ag Confirmation Hep Bs Antibody, Quant Bld Cult Staph aureus PCR Blood Culture MRSA PCR Blood Type O Negative Antibody Screen NEGATIVE 03/14/22 03/14/22 03/14/22 22:08 23:21 23:21 WBC RBC Hgb Hct MCV MCH MCHC RDW Std Deviation RDW Coeff of Wiley Plt Count MPV Immature Gran % (Auto) Neut % (Auto) Lymph % (Auto) [place] % (Auto) Eos % (Auto) Baso % (Auto) Neut # (Auto) Lymph # (Auto) [place] # (Auto) Eos # (Auto) Baso # (Auto) Immature Gran # (Auto) Dohle Bodies VBG pH 7.33 L VBG pCO2 48 VBG pO2 43 VBG HCO3 25 VBG O2 Saturation 73.5 VBG Base Excess -1.1 Barometric Pressure 730.7 Sodium Potassium 3.9 D Chloride Carbon Dioxide Anion Gap BUN Creatinine Est Cr Clr Drug Dosing Est GFR ( Amer) Est GFR (Non-Af Amer) BUN/Creatinine Ratio Glucose POC Glucose Estimat Average Glucose Hemoglobin A1c Lactate Calcium Phosphorus Magnesium Iron TIBC Unsaturated IBC Transferrin % Sat Ferritin Total Bilirubin AST ALT Alkaline Phosphatase Troponin I High Sens C-Reactive Protein Total Protein Albumin Globulin Albumin/Globulin Ratio Vitamin B12 Folate Procalcitonin Urine Color Urine Appearance Urine pH Ur Specific [place] Urine Protein Urine Glucose (UA) Urine Ketones Urine Blood Urine Nitrite Urine Bilirubin Urine Urobilinogen Ur Leukocyte Esterase Urine WBC (Auto) Urine RBC (Auto) U Hyaline Cast (Auto) U Epithel Cells (Auto) Urine Bacteria (Auto) Ur Renal Epithelial Cell Urine Crystals Calcium Oxalate Crystal Uric Acid Crystals Triple Phos Crystals Other Crystals Amorphous Sediment Granular Casts Waxy Casts RBC Casts WBC Casts Other Casts Urine Mucus Urine Other Urine Trichomonas Urine Yeast Urine Sperm Ur Oval Fat Bodies Nasal Screen MRSA (PCR) Negative Random Vancomycin Digoxin Anaplasma Smear Hep Bs Antigen Hep Bs Ag Confirmation Hep Bs Antibody, Quant Bld Cult Staph aureus PCR Blood Culture MRSA PCR Blood Type Antibody Screen 03/14/22 03/15/22 03/15/22 23:21 05:39 05:39 WBC RBC Hgb Hct MCV MCH MCHC RDW Std Deviation RDW Coeff of Wiley Plt Count MPV Immature Gran % (Auto) Neut % (Auto) Lymph % (Auto) [place] % (Auto) Eos % (Auto) Baso % (Auto) Neut # (Auto) Lymph # (Auto) [place] # (Auto) Eos # (Auto) Baso # (Auto) Immature Gran # (Auto) Dohle Bodies VBG pH VBG pCO2 VBG pO2 VBG HCO3 VBG O2 Saturation VBG Base Excess Barometric Pressure Sodium 135 L Potassium 4.0 Chloride 97 L Carbon Dioxide 26 Anion Gap 12 H BUN 45 H Creatinine 6.08 H* D Est Cr Clr Drug Dosing 12.8 Est GFR ( Amer) 7.9 Est GFR (Non-Af Amer) 6.9 BUN/Creatinine Ratio 7.4 L Glucose 188 H POC Glucose Estimat Average Glucose Hemoglobin A1c Lactate 1.2 Calcium 8.5 Phosphorus 6.7 H Magnesium 2.1 Iron 15 L TIBC 150 L Unsaturated IBC 135 L Transferrin % Sat 10 L Ferritin 1967.0 H Total Bilirubin 0.5 AST 33 ALT 19 Alkaline Phosphatase 52 Troponin I High Sens C-Reactive Protein 42.22 H Total Protein 5.9 L Albumin 3.3 L Globulin 2.6 Albumin/Globulin Ratio 1.3 Vitamin B12 > 1500 H Folate > 22.30 Procalcitonin Urine Color Urine Appearance Urine pH Ur Specific [place] Urine Protein Urine Glucose (UA) Urine Ketones Urine Blood Urine Nitrite Urine Bilirubin Urine Urobilinogen Ur Leukocyte Esterase Urine WBC (Auto) Urine RBC (Auto) U Hyaline Cast (Auto) U Epithel Cells (Auto) Urine Bacteria (Auto) Ur Renal Epithelial Cell Urine Crystals Calcium Oxalate Crystal Uric Acid Crystals Triple Phos Crystals Other Crystals Amorphous Sediment Granular Casts Waxy Casts RBC Casts WBC Casts Other Casts Urine Mucus Urine Other Urine Trichomonas Urine Yeast Urine Sperm Ur Oval Fat Bodies Nasal Screen MRSA (PCR) Random Vancomycin Digoxin Anaplasma Smear Hep Bs Antigen Hep Bs Ag Confirmation Hep Bs Antibody, Quant Bld Cult Staph aureus PCR Blood Culture MRSA PCR Blood Type Antibody Screen 03/15/22 03/15/22 03/15/22 05:39 05:39 05:39 WBC RBC Hgb Hct MCV MCH MCHC RDW Std Deviation RDW Coeff of Wiley Plt Count MPV Immature Gran % (Auto) Neut % (Auto) Lymph % (Auto) [place] % (Auto) Eos % (Auto) Baso % (Auto) Neut # (Auto) Lymph # (Auto) [place] # (Auto) Eos # (Auto) Baso # (Auto) Immature Gran # (Auto) Dohle Bodies VBG pH VBG pCO2 VBG pO2 VBG HCO3 VBG O2 Saturation VBG Base Excess Barometric Pressure Sodium Potassium Chloride Carbon Dioxide Anion Gap BUN Creatinine Est Cr Clr Drug Dosing Est GFR ( Amer) Est GFR (Non-Af Amer) BUN/Creatinine Ratio Glucose POC Glucose Estimat Average Glucose 123 Hemoglobin A1c 5.9 H Lactate Calcium Phosphorus Magnesium Iron TIBC Unsaturated IBC Transferrin % Sat Ferritin Total Bilirubin AST ALT Alkaline Phosphatase Troponin I High Sens C-Reactive Protein Total Protein Albumin Globulin Albumin/Globulin Ratio Vitamin B12 Folate Procalcitonin Urine Color Urine Appearance Urine pH Ur Specific [place] Urine Protein Urine Glucose (UA) Urine Ketones Urine Blood Urine Nitrite Urine Bilirubin Urine Urobilinogen Ur Leukocyte Esterase Urine WBC (Auto) Urine RBC (Auto) U Hyaline Cast (Auto) U Epithel Cells (Auto) Urine Bacteria (Auto) Ur Renal Epithelial Cell Urine Crystals Calcium Oxalate Crystal Uric Acid Crystals Triple Phos Crystals Other Crystals Amorphous Sediment Granular Casts Waxy Casts RBC Casts WBC Casts Other Casts Urine Mucus Urine Other Urine Trichomonas Urine Yeast Urine Sperm Ur Oval Fat Bodies Nasal Screen MRSA (PCR) Random Vancomycin 28.0 H* Digoxin 1.4 Anaplasma Smear Hep Bs Antigen Hep Bs Ag Confirmation Hep Bs Antibody, Quant Bld Cult Staph aureus PCR Blood Culture MRSA PCR Blood Type Antibody Screen 03/15/22 03/15/22 03/15/22 05:39 05:39 07:39 WBC 3.52 L RBC 2.28 L Hgb 7.7 L Hct 24.8 L MCV 108.8 H MCH 33.8 MCHC 31.0 L RDW Std Deviation 56.2 H RDW Coeff of Wiley 14.1 Plt Count 42 L MPV 12.1 H Immature Gran % (Auto) 0.3 Neut % (Auto) 81.0 Lymph % (Auto) 17.3 Burnet % (Auto) 1.4 Eos % (Auto) 0.0 Baso % (Auto) 0.0 Neut # (Auto) 2.85 Lymph # (Auto) 0.61 L [place]et # (Auto) 0.05 L Eos # (Auto) 0.00 Baso # (Auto) 0.00 Immature Gran # (Auto) 0.01 Dohle Bodies 1+ VBG pH VBG pCO2 VBG pO2 VBG HCO3 VBG O2 Saturation VBG Base Excess Barometric Pressure Sodium Potassium Chloride Carbon Dioxide Anion Gap BUN Creatinine Est Cr Clr Drug Dosing Est GFR ( Amer) Est GFR (Non-Af Amer) BUN/Creatinine Ratio Glucose POC Glucose 174 H Estimat Average Glucose Hemoglobin A1c Lactate Calcium Phosphorus Magnesium Iron TIBC Unsaturated IBC Transferrin % Sat Ferritin Total Bilirubin AST ALT Alkaline Phosphatase Troponin I High Sens C-Reactive Protein Total Protein Albumin Globulin Albumin/Globulin Ratio Vitamin B12 Folate Procalcitonin 95.47 H Urine Color Urine Appearance Urine pH Ur Specific [place] Urine Protein Urine Glucose (UA) Urine Ketones Urine Blood Urine Nitrite Urine Bilirubin Urine Urobilinogen Ur Leukocyte Esterase Urine WBC (Auto) Urine RBC (Auto) U Hyaline Cast (Auto) U Epithel Cells (Auto) Urine Bacteria (Auto) Ur Renal Epithelial Cell Urine Crystals Calcium Oxalate Crystal Uric Acid Crystals Triple Phos Crystals Other Crystals Amorphous Sediment Granular Casts Waxy Casts RBC Casts WBC Casts Other Casts Urine Mucus Urine Other Urine Trichomonas Urine Yeast Urine Sperm Ur Oval Fat Bodies Nasal Screen MRSA (PCR) Random Vancomycin Digoxin Anaplasma Smear Hep Bs Antigen Hep Bs Ag Confirmation Hep Bs Antibody, Quant Bld Cult Staph aureus PCR Blood Culture MRSA PCR Blood Type Antibody Screen 03/15/22 03/15/22 09:12 11:33 WBC RBC Hgb Hct MCV MCH MCHC RDW Std Deviation RDW Coeff of Wiley Plt Count MPV Immature Gran % (Auto) Neut % (Auto) Lymph % (Auto) [place] % (Auto) Eos % (Auto) Baso % (Auto) Neut # (Auto) Lymph # (Auto) [place] # (Auto) Eos # (Auto) Baso # (Auto) Immature Gran # (Auto) Dohle Bodies VBG pH VBG pCO2 VBG pO2 VBG HCO3 VBG O2 Saturation VBG Base Excess Barometric Pressure Sodium Potassium Chloride Carbon Dioxide Anion Gap BUN Creatinine Est Cr Clr Drug Dosing Est GFR ( Amer) Est GFR (Non-Af Amer) BUN/Creatinine Ratio Glucose POC Glucose 179 H Estimat Average Glucose Hemoglobin A1c Lactate Calcium Phosphorus Magnesium Iron TIBC Unsaturated IBC Transferrin % Sat Ferritin Total Bilirubin AST ALT Alkaline Phosphatase Troponin I High Sens C-Reactive Protein Total Protein Albumin Globulin Albumin/Globulin Ratio Vitamin B12 Folate Procalcitonin Urine Color Cancelled Urine Appearance Cancelled Urine pH Cancelled Ur Specific [place] Cancelled Urine Protein Cancelled Urine Glucose (UA) Cancelled Urine Ketones Cancelled Urine Blood Cancelled Urine Nitrite Cancelled Urine Bilirubin Cancelled Urine Urobilinogen Cancelled Ur Leukocyte Esterase Cancelled Urine WBC (Auto) Cancelled Urine RBC (Auto) Cancelled U Hyaline Cast (Auto) Cancelled U Epithel Cells (Auto) Cancelled Urine Bacteria (Auto) Cancelled Ur Renal Epithelial Cell Cancelled Urine Crystals Cancelled Calcium Oxalate Crystal Cancelled Uric Acid Crystals Cancelled Triple Phos Crystals Cancelled Other Crystals Cancelled Amorphous Sediment Cancelled Granular Casts Cancelled Waxy Casts Cancelled RBC Casts Cancelled WBC Casts Cancelled Other Casts Cancelled Urine Mucus Cancelled Urine Other Cancelled Urine Trichomonas Cancelled Urine Yeast Cancelled Urine Sperm Cancelled Ur Oval Fat Bodies Cancelled Nasal Screen MRSA (PCR) Random Vancomycin Digoxin Anaplasma Smear Hep Bs Antigen Hep Bs Ag Confirmation Hep Bs Antibody, Quant Bld Cult Staph aureus PCR Blood Culture MRSA PCR Blood Type Antibody Screen Diagnostic Findings Echo 03/15/2022: Moderately dilated LV with moderately to severely reduced systolic function. EF 30-35%. Global hypokinesis. Mildly dilated RV with mildly reduced systolic function. No significant valvular abnormalities. Mild pulmonary hypertension. RVSP 45. Similar findings compared to prior study on 11/18/2021. Telemetry personally reviewed: Sinus rhythm. Atrial fibrillation converted to sinus rhythm at 3:45 a.m. on 03/15/2022. ECGs personally reviewed: ECG 03/14/2022 at 8:24 p.m.: AFib RVR 203 beats per minute. Nonspecific ST/T- wave abnormality. ECG 03/14/2022 at 1:42 p.m.: Sinus tachycardia 122 beats per minute. Nonspecific T-wave abnormality. ECG 03/15/2022 at 12:43 a.m.: AFib RVR 141 beats per minute. Nonspecific T- wave abnormality. ECG 03/15/2022 at 6:06 a.m.: Sinus rhythm 98 beats per minute. PVC. PACs. Nonspecific T-wave abnormality. Shoulder x-ray 03/14/2022: No acute osseous pathology per Radiology. Chest x-ray 03/14/2022: Pulmonary vascular congestion per Radiology. Medications Administered Current Inpatient Medications Acetaminophen (Acetaminophen 325 Mg Tab) 650 mg PO Q4H PRN PRN Reason: Pain or Fever Stop: 04/13/22 11:00 Last Admin: 03/15/22 14:31 Dose: 650 mg Documented by: Amiodarone HCl (Amiodarone 200 Mg Tab) 400 mg PO BID [facility] Stop: 04/14/22 11:29 Last Admin: 03/15/22 12:26 Dose: 400 mg Documented by: Atorvastatin Calcium (Atorvastatin 20 Mg Tab) 20 mg PO QAM [facility] Stop: 04/13/22 11:14 Last Admin: 03/15/22 07:51 Dose: 20 mg Documented by: Calcium Acetate (Calcium Acetate 667 Mg Cap/Tab) 1,334 mg PO TIDM [facility] Stop: 04/13/22 11:59 Last Admin: 03/15/22 12:25 Dose: 1,334 mg Documented by: Dextrose (Dextrose 50% 50 Ml Syringe) 25 - 50 ml IV UD PRN; Protocol PRN Reason: Hypoglycemia Protocol Stop: 04/13/22 11:00 Ezetimibe (Ezetimibe 10 Mg Tablet) 10 mg PO [facility] Stop: 04/13/22 11:29 Last Admin: 03/15/22 07:51 Dose: 10 mg Documented by: Furosemide (Furosemide 80 Mg Tab) 80 mg PO [facility] Stop: 04/13/22 11:29 Last Admin: 03/14/22 13:08 Dose: Not Given Documented by: Glucagon (Glucagon For Inj 1 Mg Vial) 1 mg SQ UD PRN; Protocol PRN Reason: Hypoglycemia Protocol Stop: 04/13/22 11:00 Glucose (Glucose 10 Tabs/Tube) 4 - 8 tabs PO UD PRN; Protocol PRN Reason: Hypoglycemia Protocol Stop: 04/13/22 11:00 Glucose (Glucose 40% Gel 15 Gm Tube) 15 - 30 gm PO UD PRN; Protocol PRN Reason: Hypoglycemia Protocol Stop: 04/13/22 11:00 Phenylephrine HCl 20 mg/ (Dextrose) 502 mls @ 0 mls/hr IV .Q0M [facility]; Protocol Stop: 04/13/22 22:14 Last Titration: 03/14/22 22:18 Dose: 0 mcg/kg/min, 0 mls/hr Documented by: Nafcillin Sodium 2,000 mg/ (Dextrose) 108 mls @ 100 mls/hr IV Q4H [facility] Stop: 03/29/22 11:59 Last Infusion: 03/15/22 14:29 Dose: Infused Documented by: Insulin Aspart (Insulin Aspart Per Unit) 0 units SC ACHS [facility] Stop: 04/13/22 11:29 Last Admin: 03/15/22 12:09 Dose: 2 units Documented by: Insulin Glargine (Insulin Glargine Solostar 100 Units/Ml 3 Ml Pen) 12 units SC HS [facility] Stop: 04/13/22 20:59 Last Admin: 03/14/22 22:25 Dose: 12 units Documented by: Lidocaine (Lidocaine 5% 1 Patch) 1 patch TD QAM [facility] Stop: 04/13/22 15:44 Last Admin: 03/15/22 09:27 Dose: 1 patch Documented by: Miscellaneous (Carbohydrates For Hypoglycemia ) 15 - 30 gm PO UD PRN PRN Reason: Hypoglycemia Protocol Stop: 04/13/22 11:00 Miscellaneous (Remove Lidoderm Patch) 1 ea N/A DAILY@2100 [facility] Stop: 04/13/22 20:59 Last Admin: 03/14/22 22:25 Dose: 1 ea Documented by: Ondansetron HCl (Ondansetron Inj 2 Mg/Ml 2 Ml Vial) 4 mg IV Q6H PRN PRN Reason: Nausea Stop: 04/13/22 11:00 Patiromer (Patiromer Calcium Sorbitex 8.4 Gm Pack) 8.4 gm PO DAILY [facility] Stop: 04/13/22 11:59 Last Admin: 03/15/22 09:27 Dose: 8.4 gm Documented by: Vitamin B Complex/Folic Acid (Nephrocaps) 1 cap PO QAM [facility] Stop: 04/14/22 08:59 Last Admin: 03/15/22 07:51 Dose: 1 cap Documented by: PG Care Time/CCT Total # of Minutes Spent Total Time Spent with Patient: Total time spent is greater than 50% in coordination of care (as documented) at patient's floor/unit and/or counseling patient: Coding Level of Care Code 98153 Initial Inpt Care Lvl 3 Diagnoses Paroxysmal atrial fibrillation I48.0 Cardiomyopathy I42.9 Bacteremia R78.81 Pancytopenia D61.818 Thrombocytopenia D69.6 ESRD (end stage renal disease) on dialysis N18.6; Z99.2
--- NOTE | 2022-03-15 10:04 | Critical Care Progress Note ---
Date of Service March 15, 2022 Assessment & Plan (1) Severe sepsis: (2) Central venous line infection: (3) Fever: (4) Hypotension: (5) Rapid atrial fibrillation: (6) Thrombocytopenia: Plan: Impression: 62-year-old female with end-stage renal disease on dialysis who reportedly is noncompliant with outpatient regimens admitted from outside hospital with hyperkalemia. She required urgent dialysis yesterday and was transferred to the ICU due to atrial fibrillation with rapid ventricular response. She has positive blood cultures and evidence of severe sepsis. 24-hour events: Patient transferred to the ICU. Initiated on amiodarone drip. Never required pressors. Seen in consultation by cardiology, nephrology, and vascular surgery. Permacath removed at bedside this morning. Recommendations: Neuro -continue to follow. Analgesia as needed. Cardiac -A. fib with RVR. Discussed with cardiology. Continue amiodarone for an additional 12 hours then overlap with oral load 400 mg p.o. twice daily. Will need to address anticoagulation once thrombocytopenia has resolved. Given prior bleeding issues, initiation of unfractionated heparin through an IV might be appropriate. Blood pressure soft to allow for rate controlling agents however if it improves, addition of low-dose metoprolol might be appropriate. Digoxin per cardiology. Follow-up echocardiogram pending. Patient's been hemodynamically stable and never required initiation of pressor agent Respiratory -continue supplemental oxygen. Mild fluid overload on chest x-ray. Holding diuretics and dialysis for today. Discussed with nephrology. GI - Diabetic/heart healthy diet RENAL/LYTES -end-stage renal disease on dialysis. Discussed with nephrology this morning and with vascular surgery. Permacath removed. The patient's AV fistula is a graft and can be accessed. Nephrology is not sure that the dialysis nurse can access it. If not we will need vascular surgery to place temporary access. Electrolytes stable. Acid-base status appropriate. - Patient is reportedly oliguric. Monitor strict I's and O's ENDO - DM type IIcurrently insulin-dependent. Hemoglobin A1c pending HEME -thrombocytopenia: Likely secondary to sepsis. Holding anticoagulation until platelets improve. Anemia chronic. No indication for transfusion currently. ID -MSSA bacteremia. Likely secondary to line infection. The line has been removed. Cultures of the line are pending. We will check surveillance cultures tomorrow. Discussed with critical care pharmacist. We will transition and de- escalate antimicrobial therapy. Discontinue vancomycin. Will place on nafcillin for now. ID consultation is pending. Treatment of her bacteremia may be complicated as the patient has a longstanding history of medical noncompliance. Nephrology inquires whether or not Ancef dosed with dialysis might be appropriate although she apparently no-shows for dialysis. She is not and a candidate for PICC line in the outpatient setting. If her cultures remain persistently positive, will need to investigate for potential extravascular sources of seeding including the fistula, imaging of the spine, and potential transesophageal echocardiogram. Severe sepsisinitial procalcitonin 108. Blood cultures grew GPC's in clusters x4. MRSA and staph PCR is pending. Nasal MRSA pending LINES/IV ACCESS - Peripheral IVs DVT PROPHYLAXIS - SCDs CODE STATUSDNR/DNI The patient is hemodynamically stable and is now rate controlled. Discussed with hospitalist. Okay to transfer to the floor. Critical care services will sign off. Feel free to contact us if we can be of additional assistance. Admission and Anticipated Discharge Date Admission Date: March 14, 2022 Subjective Patient seen and examined. EMR reviewed. Discussed with critical care GUNJAN overnight as well as with vascular surgery, cardiology, and bedside critical care nurse. The patient complains of some fatigue and poor appetite this morning. She is tender over her permacath site. Review of Systems Review of Systems: All systems reviewed & are unremarkable except as noted in Subjective Physical Exam Constitutional: WD/WN, vitals as above + morbidly obese and cooperative; not in distress Neck: trachea midline Respiratory: normal respiratory effort, lungs clear to auscultation Auscultation: + diminished lung sounds Cardiovascular: Rate/Rhythm: + irregularly irregular Extremities: + vascular access device (R chest wall, + tender, erythema, no draiange) and + AV fistula (LUE AV graft with +thrill/bruit, nontender, no erythema) Gastrointestinal (Abdomen): Inspection/Auscultation: abdomen normal to inspection and normal bowel sounds Percussion/Palpation: abdomen soft; abdomen nontender Musculoskeletal: no cyanosis or clubbing, extremities motor strength 5/5 Skin: no rashes, warm and dry Neurologic: moves all extremities and awake; no focal motor deficits and not confused Psychiatric: A+Ox3, euthymic affect Results & Data Results & Data (MN) Vital Signs (Past 12 Hours) Vital Signs Temp Pulse Resp BP Pulse Ox 03/15/22 09:01 100 H 23 104/65 92 03/15/22 09:00 100 H 17 93 03/15/22 08:01 101 H 26 H 111/59 L 95 03/15/22 08:00 36.6 C 101 H 26 H 95 03/15/22 07:31 105 H 27 H 99/65 L 94 03/15/22 07:01 100 H 16 104/71 94 03/15/22 07:00 101 H 15 94 03/15/22 06:31 98 H 18 97/55 L 94 03/15/22 06:30 97 H 16 94 03/15/22 06:20 36.7 C 03/15/22 06:01 104 H 19 82/55 L 96 03/15/22 06:00 94 H 17 97 03/15/22 05:31 101 H 15 121/55 L 96 03/15/22 05:30 101 H 17 95 03/15/22 05:01 100 H 16 117/61 96 03/15/22 05:00 103 H 15 96 03/15/22 04:30 95 H 19 96 03/15/22 04:01 98 H 17 93/63 L 94 03/15/22 04:00 99 H 17 95 03/15/22 03:30 138 H 15 95 03/15/22 03:00 130 H 17 86/59 L 96 03/15/22 02:31 146 H 16 81/55 L 95 03/15/22 02:30 36.8 C 125 H 18 95 03/15/22 02:01 145 H 18 96/50 L 96 03/15/22 02:00 135 H 19 96 03/15/22 01:30 130 H 18 96 03/15/22 01:03 143 H 17 89/49 L 96 03/15/22 01:00 135 H 19 96 03/15/22 00:31 138 H 15 82/64 L 96 03/15/22 00:30 129 H 17 96 03/15/22 00:21 133 H 19 98 03/15/22 00:17 138 H 134/74 03/15/22 00:10 141 H 18 97 03/15/22 00:01 144 H 19 134/74 97 06/07/22 00:00 138 H 20 97 06/06/22 23:56 157 H 03/14/22 23:50 129 H 18 97 03/14/22 23:40 144 H 17 98 03/14/22 23:30 139 H 19 124/70 98 03/14/22 23:20 152 H 18 98 03/14/22 23:10 138 H 21 108/56 L 98 03/14/22 23:00 144 H 17 90/56 L 98 03/14/22 22:50 142 H 24 98 03/14/22 22:46 150 H 19 82/50 L 98 03/14/22 22:40 143 H 21 98 03/14/22 22:32 159 H 24 96/50 L 98 03/14/22 22:31 151 H 25 H 68/48 L 98 03/14/22 22:30 184 H 27 H 98 03/14/22 22:20 155 H 27 H 98 03/14/22 22:10 186 H 31 H 98 03/14/22 22:08 38.2 C H 176 H 33 H 104/61 96 03/14/22 22:01 172 H 38 H 88 L Critical Care Results & Data Vital Signs (Past 12 Hours) Vital Signs Temp Pulse Resp BP Pulse Ox 03/15/22 09:01 100 H 23 104/65 92 03/15/22 09:00 100 H 17 93 03/15/22 08:01 101 H 26 H 111/59 L 95 03/15/22 08:00 36.6 C 101 H 26 H 95 03/15/22 07:31 105 H 27 H 99/65 L 94 03/15/22 07:01 100 H 16 104/71 94 03/15/22 07:00 101 H 15 94 03/15/22 06:31 98 H 18 97/55 L 94 03/15/22 06:30 97 H 16 94 03/15/22 06:20 36.7 C 03/15/22 06:01 104 H 19 82/55 L 96 03/15/22 06:00 94 H 17 97 03/15/22 05:31 101 H 15 121/55 L 96 03/15/22 05:30 101 H 17 95 03/15/22 05:01 100 H 16 117/61 96 03/15/22 05:00 103 H 15 96 03/15/22 04:30 95 H 19 96 06/07/22 04:01 98 H 17 93/63 L 94 03/15/22 04:00 99 H 17 95 03/15/22 03:30 138 H 15 95 03/15/22 03:00 130 H 17 86/59 L 96 03/15/22 02:31 146 H 16 81/55 L 95 03/15/22 02:30 36.8 C 125 H 18 95 03/15/22 02:01 145 H 18 96/50 L 96 03/15/22 02:00 135 H 19 96 03/15/22 01:30 130 H 18 96 03/15/22 01:03 143 H 17 89/49 L 96 03/15/22 01:00 135 H 19 96 03/15/22 00:31 138 H 15 82/64 L 96 03/15/22 00:30 129 H 17 96 03/15/22 00:21 133 H 19 98 03/15/22 00:17 138 H 134/74 03/15/22 00:10 141 H 18 97 03/15/22 00:01 144 H 19 134/74 97 03/15/22 00:00 138 H 20 97 03/14/22 23:56 157 H 03/14/22 23:50 129 H 18 97 03/14/22 23:40 144 H 17 98 03/14/22 23:30 139 H 19 124/70 98 03/14/22 23:20 152 H 18 98 03/14/22 23:10 138 H 21 108/56 L 98 03/14/22 23:00 144 H 17 90/56 L 98 03/14/22 22:50 142 H 24 98 03/14/22 22:46 150 H 19 82/50 L 98 03/14/22 22:40 143 H 21 98 03/14/22 22:32 159 H 24 96/50 L 98 03/14/22 22:31 151 H 25 H 68/48 L 98 03/14/22 22:30 184 H 27 H 98 03/14/22 22:20 155 H 27 H 98 03/14/22 22:10 186 H 31 H 98 03/14/22 22:08 38.2 C H 176 H 33 H 104/61 96 03/14/22 22:01 172 H 38 H 88 L Lab & Micro Results (Past 24 Hours) RBC 2.28 M/uL (4.2-5.4) L 03/15/22 WBC 3.52 K/uL (4.8-10.8) L 03/15/22 Hgb 7.7 g/dL (12.0-16.0) L 03/15/22 Hct 24.8 % (37-47) L 03/15/22 MCV 108.8 fL (80-100) H 03/15/22 MCH 33.8 pg (25-34) 03/15/22 MCHC 31.0 g/dL (32-36) L 03/15/22 RDW Standard Deviation 56.2 fL (36.4-46.3) H 03/15/22 RDW Coefficient of Variation 14.1 % (11.5-14.5) 03/15/22 Plt Count 42 K/uL (130-400) L 03/15/22 MPV 12.1 fL (7.4-10.4) H 03/15/22 Neutrophils (%) (Auto) 81.0 % 03/15/22 Lymphocytes (%) (Auto) 17.3 % 03/15/22 Monocytes # (Auto) 0.05 K/uL (0.11-0.59) L 03/15/22 Eosinophils # (Auto) 0.00 K/uL (0-0.5) 03/15/22 Immature Granulocyte % (Auto) 0.3 % 03/15/22 Neutrophils # (Auto) 2.85 K/uL (1.4-6.5) 03/15/22 Lymphocytes # (Auto) 0.61 K/uL (1.2-3.4) L 03/15/22 Monocytes # (Auto) 0.05 K/uL (0.11-0.59) L 03/15/22 Eosinophils # (Auto) 0.00 K/uL (0-0.5) 03/15/22 Basophils # (Auto) 0.00 K/uL (0-0.2) 03/15/22 Immature Granulocyte # (Auto) 0.01 K/uL (0.00-0.02) 03/15/22 Dohle Bodies 1+ 03/15/22 Na 135 mmol/L (136-145) L 03/15/22 K 4.0 mmol/L (3.5-5.1) 03/15/22 Cl 97 mmol/L (98-107) L 03/15/22 CO2 26 mmol/L (21-32) 03/15/22 Anion Gap 12 (3-11) H 03/15/22 BUN 45 mg/dl (6-23) H 03/15/22 Creatinine 6.08 mg/dl (0.6-1.2) H* 03/15/22 Estimated GFR ( Amer) 7.9 ml/min 03/15/22 Estimated GFR (Non-Af Amer) 6.9 ml/min 03/15/22 BUN/Creatinine Ratio 7.4 (10-20) L 03/15/22 Glu 188 mg/dl (70-99(Fasting)) H 03/15/22 Ca 8.5 mg/dl (8.5-10.1) 03/15/22 Phosphorus Level 6.7 mg/dl (2.5-4.9) H 03/15/22 Total Bilirubin 0.5 mg/dl (0.2-1.0) 03/15/22 AST 33 U/L (13-39) 03/15/22 ALT 19 U/L (7-52) 03/15/22 Alkaline Phosphatase 52 U/L (34-104) 03/15/22 TP 5.9 gm/dl (6.0-8.3) L 03/15/22 Albumin 3.3 gm/dl (3.4-5.0) L 03/15/22 Globulin 2.6 gm/dl (2.5-4.0) 03/15/22 Albumin/Globulin Ratio 1.3 (0.9-2) 03/15/22 Mg 2.1 mg/dl (1.7-2.4) 03/15/22 05:39 03/15/22 Calcium Level 8.5 mg/dl (8.5-10.1) 03/15/22 05:39 03/15/22 Venous Blood pH 7.33 (7.36-7.41) L 03/14/22 23:21 03/14/22 Venous Blood Partial Pressure CO2 48 mmHg (38-50) 03/14/22 23:21 03/14/22 Venous Blood Partial Pressure O2 43 mmHg 03/14/22 23:21 03/14/22 Venous Blood HCO3 25 mmol/L 03/14/22 23:21 03/14/22 Venous Blood Base Excess -1.1 mEq/L 03/14/22 23:21 03/14/22 Venous Blood Oxygen Saturation 73.5 % 03/14/22 23:21 03/14/22 Blood Gas Barometric Pressure 730.7 mm/Hg 03/14/22 23:21 03/14/22 Blood Gas Barometric Pressure 730.7 mm/Hg 03/14/22 23:21 03/14/22 Microbiology 03/14/22 12:24 Aerobic Blood Culture - Preliminary Blood Staphylococcus species Anaerobic Blood Culture - Preliminary Staphylococcus species 03/14/22 12:52 Aerobic Blood Culture - Preliminary Blood Staphylococcus species Anaerobic Blood Culture - Preliminary Staphylococcus species Diagnostic Findings (Past 24 Hours) Chest X-Ray 03/14/22 11:10 SINGLE VIEW CHEST CLINICAL HISTORY: Dyspnea. Atypical chest pain. FINDINGS: An AP, portable, upright chest radiograph is compared to study dated 11/16/2021. The examination is degraded by portable technique, large body habitus, and apical lordotic positioning. A right internal jugular central venous catheter is unchanged in position. The heart is enlarged noting atherosclerotic calcification of the thoracic aorta. There is pulmonary vascular congestion. Atelectasis seen at the lung bases. No airspace consolidation or large pleural effusion is identified. No pneumothorax is seen. The skeletal structures are osteopenic. The bony thorax is grossly intact. IMPRESSION: Cardiomegaly with pulmonary vascular congestion. ACT 112: Negative or not required by law. Electronically signed by: Gavin Holder M.D. 03/14/2022 12:11 PM Shoulder X-Ray 03/14/22 15:32 XR shoulder RT min 2V routine CLINICAL HISTORY: right shoulder pain. COMPARISON STUDY: No previous studies for comparison. TECHNIQUE: 3 right shoulder views FINDINGS: Bones: There is no evidence for an acute fracture or dislocation. There is no lytic or blastic lesion. Joints: There is mild narrowing of the glenohumeral joint and moderate degenerative changes at the acromial clavicular joint. The bones are in anatomic alignment. Soft tissues: There is no focal soft tissue abnormality. There is no radiopaque foreign body. IMPRESSION: 1. No acute osseous pathology. 2. Osteoarthritis ACT 112: Negative or not required by law. Electronically signed by: Robin Luna M.D. 03/14/2022 8:19 PM I & O Totals 24 Hours 03/14/22 03/15/22 03/16/22 06:59 06:59 06:59 Intake Total 2180.693 / 2180.693 Output Total 102 / 102 Balance 2078.693 / 2078.693 Cumulative 03/14/22 thru 03/15/22 06:00 Intake Total 2180.693 Output Total 102 Balance 2078.693 RT Ventilator Mngmt (Last Documented) Ventilator Ordered Settings Respiratory Rate 23 03/15/22 09:01 Ventilator - PT Measurements Respiratory Rate 23 Coding Level of Care Code 23001 Subseq Hosp Care Lvl 3 Diagnoses Severe sepsis A41.9; R65.20 Central venous line infection T80.219A Fever R50.9 Hypotension I95.9 Rapid atrial fibrillation I48.91 Thrombocytopenia D69.6
[2022-03-15] MEDS ORDERED: AMIODARONE 200 MG TAB PO SCH (11:30)
--- NOTE | 2022-03-15 12:15 | XCELERA ---
[id number] \\[id number]___[id number]
[2022-03-15] MEDS: NAFCILLIN SODIUM 2,000 MG in DEXTROSE 5% 100 ML IV SCH ×4 (12:26→23:57)
--- NOTE | 2022-03-15 12:39 | Operative Report ---
Post Operative Report Pre & Post Diagnosis Infected perm cath with sepsis I identified the patient and participated in the time-out.: Yes Procedure Right perm cath removal Surgeon Kalpesh Arevalo MD [employer] MD [place] Estimated Blood Loss 0 Findings Consistent with Post-Op Diagnosis see operative report Specimens catheter tip sent for culture Anesthesia Type None Complications none Indications This is a 62 year old female with an infected right IJ perm cath. She is in need of removal of this perm cath. Description of Procedure A team timeout was performed at patient's bedside after consent was obtained. The suture holding the perm cath in place at this skin was cut. The permcath and cuff were completely removed. These slid out easily. There was some cloudy serosanguinous drainage from the tunnel. Pressure was then applied in the right neck over where the catheter had inserted into the right internal jugular vein. Adequate hemostasis was obtained. A dry gauze dressing and tape were applied over the tunnel exit site. The catheter tip was cut and sent for culture and the rest of the catheter was discarded. The patient tolerated the procedure well. Dr. Arevalo was present for the entirety of the procedure. I attest to the content of the Intraoperative Record and any orders documented therein. Any exceptions are noted below.
--- NOTE | 2022-03-15 14:00 | Consultation Report ---
NEPHROLOGY CONSULTATION NOTE DATE OF SERVICE: 03/15/2022 REASON FOR CONSULT: Dialysis patient, now admitted with Staph aureus bacteremia. HISTORY OF PRESENT ILLNESS: The patient is a 62-year-old female with ESRD, on chronic hemodialysis secondary to longstanding diabetes and cardiac problems. She gets dialysis usually 2 times a week and sometimes even just one time because of noncompliance. She presented to the hospital yesterday because of fever. She just had a new catheter in the right IJ on 03/11. Right after the catheter placement, she started feeling weak and sick and started having fever, after which she presented to outside hospital and then came to our hospital. Blood culture is already showing methicillin-sensitive Staph aureus bacteremia. She did have elevated lactic acid, but is now trending down. COVID BioFire panel was negative. Chest x-ray shows some evidence of congestive heart failure, which is not surprising given her noncompliance. She did have dialysis yesterday in the hospital. Her blood pressure does tend to drop, making it hard to take enough fluid. However, after dialysis after a few hours, she started having shortness of breath and tachycardia and palpitation and was found to have AFib with rapid ventricular response, after which the patient was transferred to the ICU where she is still is. She is currently getting IV amiodarone. Because of the blood culture being positive, vascular surgery has already removed the infected dialysis catheter. As per Dr. Arevalo's note, her AVG, although deep, is good enough to be tried for cannulation. Her next dialysis is scheduled for tomorrow. She is going to get IV nafcillin for the Staph aureus bacteremia. ALLERGIES: ALLERGY LIST WAS REVIEWED AND IS PER THE H AND P. MEDICATIONS: Home medication list was also reviewed and is as per the H and P. PAST MEDICAL AND SURGICAL HISTORY: Includes multiple catheter related bacteremia, history of congestive heart failure, chronic anemia, ESRD - on dialysis with noncompliance, hypertension, insulin-dependent diabetes mellitus, history of necrotizing fasciitis, history of thrombocytopenia, cholecystectomy, lumbar surgery. FAMILY HISTORY: Positive for diabetes. No renal disease or dialysis. SOCIAL HISTORY: Former smoker, currently lives alone. Her niece lives next door. She works at the [employer] control [employer]. REVIEW OF SYSTEMS: Positive for fever, weakness, chills, palpitations, shortness of breath. Otherwise, 12 systems reviewed and negative. PHYSICAL EXAMINATION: GENERAL: Elderly white female who is morbidly obese. She is awake and alert, able to give a detailed account of her medical problems. She is in mild respiratory distress. VITAL SIGNS: Include most recent one blood pressure 104/65, pulse 100, temperature 36.6, 92% on 2 liters nasal cannula. NECK: Supple. No JVD. CHEST: Bilateral decreased breath sound. CARDIOVASCULAR: Irregularly irregular, tachycardic. Systolic murmur heard. She does have an AV fistula in the left upper extremity with bruit and thrill. AV fistula is not tender and no erythema. She does have about 2+ edema. ABDOMEN: Soft, nontender, obese. EXTREMITIES: Show 2+ edema. NEUROLOGIC: Moves all 4 extremities. Normal speech. No obvious focal deficit noted. LABORATORY TEST: Blood culture was positive for Staph aureus, which was sensitive to methicillin. Hemoglobin 7.7, platelet count 42,000, which is slightly higher than yesterday at 35. Sodium 135, potassium 4.0, BUN 45, creatinine 6.08, phosphorus 6.7, hemoglobin A1c 5.9. Iron saturation 10%, iron low. CRP is very elevated at 42. Procalcitonin 95. Chest x-ray shows some evidence of CHF. X-ray of her shoulder did not show any obvious pathology. ASSESSMENT AND PLAN: A 62-year-old female with end-stage renal disease, on chronic hemodialysis, but with noncompliance and normally does 1-2 times per week. Now admitted with catheter-related bacteremia with methicillin-sensitive Staphylococcus aureus bacteremia. I have been asked for dialysis management. 1. End-stage renal disease: She did have dialysis yesterday. Her blood pressure runs low, probably because of the underlying bacteremia and sepsis, but even on good days, her blood pressure is on the low side. We will do dialysis again tomorrow on a 2K bath for 4 hours. However, the big question is whether we will have an access to do it or not. Her current tunneled catheter has been removed because of the Staphylococcus aureus bacteremia. Her arteriovenous graft has good bruit and thrill, but it is somewhat deep, which makes cannulation tricky. If we are able to successfully cannulate, it will be great, but if not, there will be a problem in which she may need a temporary catheter for the time being. We will try to take as much fluid as we can as allowed by her blood pressure. 2. Methicillin-sensitive Staphylococcus aureus bacteremia: This is related with dialysis catheter. Unfortunately, she seems quite prone to bacteremia as she has had multiple episodes like this in the last few months. Infectious disease has been consulted. Her dialysis days are tricky because she does not always come for dialysis, which makes antibiotics dosing difficult. On the other hand, with an extremely complicated vascular status with multiple failed arteriovenous fistula and multiple episodes of catheter placement, as much as possible I would like to avoid the PICC line. We will decide about this in the coming days. Thank you very much for the consult. Job ID: [id number] MTDD
[2022-03-15] MEDS: ACETAMINOPHEN 325 MG TAB PO PRN ×2 (14:31→20:23)
[2022-03-15] MEDS ORDERED: METOPROLOL TARTRATE 1 MG/ML VIAL IV ONE (16:51)
[2022-03-15] MEDS ORDERED: AMIODARONE / D5W 150 MG/100 ML BAG IV STA (18:01)
[2022-03-15] MEDS ORDERED: STAT IV Infusion **Titration per Protocol STA (18:01)
[2022-03-15] MEDS ORDERED: 0.2 MICRON FILTER SET 1 EACH IV ONE (18:01)
[2022-03-15] MEDS ORDERED: AMIODARONE IV BOLUS & DRIP IV STA (18:01)
[2022-03-15] MEDS: INSULIN GLARGINE SOLOSTAR 100 UNITS/ML 3 ML PEN SC SCH (20:20)
[2022-03-15] MEDS: PANTOprazole 40 MG TAB PO SCH (20:20)
[2022-03-15] MEDS: AMIODARONE / D5W 360 MG/200 ML BAG IV SCH (23:58)
[2022-03-16] MEDS: METOPROLOL TARTRATE 1 MG/ML VIAL IV PRN ×3 (03:25→12:24)
[2022-03-16] MEDS: NAFCILLIN SODIUM 2,000 MG in DEXTROSE 5% 100 ML IV SCH ×3 (03:58→11:44)
[2022-03-16] MEDS: ACETAMINOPHEN 325 MG TAB PO PRN ×3 (05:02→19:14)
--- NOTE | 2022-03-16 06:50 | Electrocardiogram Report ---
Test Reason : Blood Pressure : / mmHG Vent. Rate : 122 BPM Atrial Rate : 122 BPM P-R Int : 000 ms QRS Dur : 092 ms QT Int : 418 ms P-R-T Axes : 000 117 056 degrees QTc Int : 595 ms Poor data quality, interpretation may be adversely affected Sinus tachycardia Right axis deviation Low voltage QRS Nonspecific T wave abnormality Abnormal ECG When compared with ECG of 17-NOV-2021 11:27, Vent. rate has increased BY 41 BPM Nonspecific T wave abnormality, improved in Lateral leads Confirmed by Cain Perez ([id number]) on 03/16/2022 6:50:10 AM Referred By: Adrianna Ordoñez Confirmed By:Cain Perez
[2022-03-16] MEDS: CALCIUM ACETATE 667 MG CAP/TAB PO SCH ×3 (07:30→16:21)
[2022-03-16] MEDS: INSULIN ASPART PER UNIT SC SCH ×4 (07:30→21:20)
[2022-03-16] MEDS: EZETIMIBE 10 MG TABLET PO SCH (07:31)
[2022-03-16] MEDS: PANTOprazole 40 MG TAB PO SCH ×2 (07:31→19:14)
[2022-03-16] MEDS: ATORVASTATIN 20 MG TAB PO SCH (07:31)
[2022-03-16] MEDS: NEPHROCAPS PO SCH (07:31)
[2022-03-16] MEDS: LIDOCAINE 5% 1 PATCH TD SCH (07:31)
[2022-03-16] MEDS: PATIROMER CALCIUM SORBITEX 8.4 GM PACK PO SCH (07:32)
[2022-03-16] MEDS ORDERED: LIDOCAINE/PRILOCAINE 2.5% EA CRM EXT ONE (07:55)
[2022-03-16 09:22] LABS: Hematocrit (blood only) 22.8 % (37-47); Hemoglobin 7.2 g/dL (12.0-16.0); Mean Corpuscular Hemoglobin 33.8 pg (25-34); Mean Corpuscular Hgb Conc 31.6 g/dL (32-36); Mean Platelet Volume 12.1 fL (7.4-10.4); Platelet Count 40 K/uL (130-400); RDW Coefficient of Variation 13.9 % (11.5-14.5); RDW Standard Deviation 54.1 fL (36.4-46.3); Red Blood Count 2.13 M/uL (4.2-5.4); White Blood Count 4.55 K/uL (4.8-10.8)
[2022-03-16 09:34] LABS: Dohle Bodies 1+; Echinocytes 1+; Eosinophils # (auto) 0.01 K/uL (0-0.5); Eosinophils % (auto) 0.2 %; Immature Granulocytes # (auto) 0.02 K/uL (0.00-0.02); Immature Granulocytes % (auto) 0.4 %; Lymphocytes # (auto) 0.32 K/uL (1.2-3.4); Monocytes # (auto) 0.39 K/uL (0.11-0.59); Monocytes % (auto) 8.6 %; Neutrophils # (auto) 3.81 K/uL (1.4-6.5); Neutrophils % (auto) 83.8 %
[2022-03-16 09:36] LABS: BUN Creatinine Ratio 9.7 (10-20); Calcium 7.3 mg/dl (8.5-10.1); Creatinine Clr Calc Pharmacy 11.8 ml/min; Est GFR (African American) 7.2 ml/min; Est GFR (Non-African American) 6.2 ml/min; Magnesium 2.1 mg/dl (1.7-2.4); Phosphorus 5.4 mg/dl (2.5-4.9); Potassium 3.3 mmol/L (3.5-5.1)
[2022-03-16] MEDS ORDERED: EPOETIN ALFA 20,000 UNITS/ML VIAL IV ONE (09:40)
[2022-03-16] MEDS ORDERED: SODIUM CHLORIDE 0.9% 1000ML 1,000 ML IV PRN (09:40)
--- NOTE | 2022-03-16 09:51 | Cardiology Progress Note ---
Date of Service March 16, 2022 Assessment & Plan (1) Paroxysmal atrial fibrillation: (2) Cardiomyopathy: (3) Bacteremia: (4) Pancytopenia: (5) Thrombocytopenia: (6) ESRD (end stage renal disease) on dialysis: Plan: ASSESSMENT/PLAN: 1. Paroxysmal atrial fibrillation: Currently in sinus but does have episodes of sustained paroxysmal atrial fibrillation. Overall AFib heart rates improved compared to presentation and better tolerated in regards to her blood pressure. Continue amiodarone drip today. We will try to convert to oral amiodarone probably tomorrow. If/when safe, would recommend anticoagulation therapy for stroke risk reduction. Unfortunately, she is thrombocytopenic and also had significant bleeding per her report while on Eliquis, requiring 5 units of packed red blood cells. May be a candidate for Watchman device, although would not pursue such in the setting of bacteremia. This can be followed up as an outpatient with her local providers. 2. Cardiomyopathy with history of heart failure with reduced EF: Volume status is managed by Nephrology via hemodialysis and also Lasix. She does not appear to be significantly hypervolemic. Resume metoprolol succinate 50 mg daily. She is not on ARNI/ACEI, aldosterone receptor antagonist, SGLT 2 inhibitor, due to end-stage renal disease. LV systolic function may be acutely worsened in the setting of AFib with RVR. If no significant improvement, could consider ICD for primary prevention, although would not pursue during this hospital stay due to bacteremia. This should be followed up as an outpatient by her local providers. 3. Pancytopenia: Thrombocytopenia acutely worsened compared to baseline. May be due to sepsis. Defer to primary hospitalist service. 4. Bacteremia and infected catheter tip: MSSA. Treatment as per primary hospitalist service, critical Care Service, and Infectious Disease (consult pending). 5. End-stage renal disease on HD: As per Nephrology. 6. Disposition: Cardiology will continue to follow. On discharge, she should follow-up with her local lei maker. This was discussed with her today and she was agreeable. Admission and Anticipated Discharge Date Admission Date: March 14, 2022 Subjective Patient was seen this morning. She denies chest pain, shortness of breath, palpitations, syncope, near-syncope. She feels better today than yesterday. Yesterday she had her hemodialysis catheter removed and the tip was sent for culture. Amiodarone drip was resumed due to recurrent AFib with RVR. Blood pressure overall was less labile during recurrent AFib and the AFib was not nearly as fast as it was on presentation. When she was seen this morning, she was in sinus rhythm. Review of systems: As above. Physical Exam Physical Exam: Gen.: No acute distress. Alert and oriented. HEENT: Anicteric sclera. Neck: Thick neck. Cardiac: PMI was nonpalpable. No ventricular heave. Regular. Normal S1-S2. No murmurs, rubs, or gallops. Pulmonary: Decreased breath sounds bilaterally, but otherwise clear to auscult ation bilaterally without wheezes, rales, or rhonchi. Abdomen: Soft, nontender, nondistended, with normoactive bowel sounds. No bruits noted. Extremities: 2+ right radial pulse. Left upper extremity AV fistula with palpable thrill and audible bruit. 2+ dorsalis pedis pulses bilaterally. Trace bilateral lower extremity edema. No cyanosis. Psychiatric: Affect appears appropriate. Chest: Right chest erythema improved. Results & Data ([facility]) Vital Signs (Past 12 Hours) Vital Signs Temp Pulse Resp BP Pulse Ox 03/16/22 08:05 135 H 93/74 L 03/16/22 03:25 140 H 125/82 03/16/22 03:08 128 H 03/16/22 00:54 86 03/16/22 00:00 36.8 C 79 26 H 117/59 L 95 03/15/22 22:00 82 20 100/61 94 Laboratory Results Laboratory Results - last 24 hr 03/15/22 03/15/22 03/15/22 09:12 11:33 16:34 WBC RBC Hgb Hct MCV MCH MCHC RDW Std Deviation RDW Coeff of Wiley Plt Count MPV Immature Gran % (Auto) Neut % (Auto) Lymph % (Auto) Rabun % (Auto) Eos % (Auto) Baso % (Auto) Neut # (Auto) Lymph # (Auto) Rabun # (Auto) Eos # (Auto) Baso # (Auto) Immature Gran # (Auto) Dohle Bodies Echinocytes Sodium Potassium Chloride Carbon Dioxide Anion Gap BUN Creatinine Est Cr Clr Drug Dosing Est GFR ( Amer) Est GFR (Non-Af Amer) BUN/Creatinine Ratio Glucose POC Glucose 179 H 205 H Calcium Phosphorus Magnesium Procalcitonin Urine Color Cancelled Urine Appearance Cancelled Urine pH Cancelled Ur Specific [place] Cancelled Urine Protein Cancelled Urine Glucose (UA) Cancelled Urine Ketones Cancelled Urine Blood Cancelled Urine Nitrite Cancelled Urine Bilirubin Cancelled Urine Urobilinogen Cancelled Ur Leukocyte Esterase Cancelled Urine WBC (Auto) Cancelled Urine RBC (Auto) Cancelled U Hyaline Cast (Auto) Cancelled U Epithel Cells (Auto) Cancelled Urine Bacteria (Auto) Cancelled Ur Renal Epithelial Cell Cancelled Urine Crystals Cancelled Calcium Oxalate Crystal Cancelled Uric Acid Crystals Cancelled Triple Phos Crystals Cancelled Other Crystals Cancelled Amorphous Sediment Cancelled Granular Casts Cancelled Waxy Casts Cancelled RBC Casts Cancelled WBC Casts Cancelled Other Casts Cancelled Urine Mucus Cancelled Urine Other Cancelled Urine Trichomonas Cancelled Urine Yeast Cancelled Urine Sperm Cancelled Ur Oval Fat Bodies Cancelled 03/15/22 03/16/22 03/16/22 20:12 07:11 08:21 WBC 4.55 L RBC 2.13 L Hgb 7.2 L Hct 22.8 L MCV 107.0 H MCH 33.8 MCHC 31.6 L RDW Std Deviation 54.1 H RDW Coeff of Wiley 13.9 Plt Count 40 L MPV 12.1 H Immature Gran % (Auto) 0.4 Neut % (Auto) 83.8 Lymph % (Auto) 7.0 Rabun % (Auto) 8.6 Eos % (Auto) 0.2 Baso % (Auto) 0.0 Neut # (Auto) 3.81 Lymph # (Auto) 0.32 L Rabun # (Auto) 0.39 Eos # (Auto) 0.01 Baso # (Auto) 0.00 Immature Gran # (Auto) 0.02 Dohle Bodies 1+ Echinocytes 1+ Sodium Potassium Chloride Carbon Dioxide Anion Gap BUN Creatinine Est Cr Clr Drug Dosing Est GFR ( Amer) Est GFR (Non-Af Amer) BUN/Creatinine Ratio Glucose POC Glucose 253 H 188 H Calcium Phosphorus Magnesium Procalcitonin Urine Color Urine Appearance Urine pH Ur Specific [place] Urine Protein Urine Glucose (UA) Urine Ketones Urine Blood Urine Nitrite Urine Bilirubin Urine Urobilinogen Ur Leukocyte Esterase Urine WBC (Auto) Urine RBC (Auto) U Hyaline Cast (Auto) U Epithel Cells (Auto) Urine Bacteria (Auto) Ur Renal Epithelial Cell Urine Crystals Calcium Oxalate Crystal Uric Acid Crystals Triple Phos Crystals Other Crystals Amorphous Sediment Granular Casts Waxy Casts RBC Casts WBC Casts Other Casts Urine Mucus Urine Other Urine Trichomonas Urine Yeast Urine Sperm Ur Oval Fat Bodies 03/16/22 03/16/22 08:21 08:21 WBC RBC Hgb Hct MCV MCH MCHC RDW Std Deviation RDW Coeff of Wiley Plt Count MPV Immature Gran % (Auto) Neut % (Auto) Lymph % (Auto) Rab[place] % (Auto) Eos % (Auto) Baso % (Auto) Neut # (Auto) Lymph # (Auto) [place] # (Auto) Eos # (Auto) Baso # (Auto) Immature Gran # (Auto) Dohle Bodies Echinocytes Sodium 128 L Potassium 3.3 L Chloride 88 L Carbon Dioxide 23 Anion Gap 17 H BUN 64 H Creatinine 6.62 H* D Est Cr Clr Drug Dosing 11.8 Est GFR ( Amer) 7.2 Est GFR (Non-Af Amer) 6.2 BUN/Creatinine Ratio 9.7 L Glucose 457 H* POC Glucose Calcium 7.3 L Phosphorus 5.4 H Magnesium 2.1 Procalcitonin Pending Urine Color Urine Appearance Urine pH Ur Specific [place] Urine Protein Urine Glucose (UA) Urine Ketones Urine Blood Urine Nitrite Urine Bilirubin Urine Urobilinogen Ur Leukocyte Esterase Urine WBC (Auto) Urine RBC (Auto) U Hyaline Cast (Auto) U Epithel Cells (Auto) Urine Bacteria (Auto) Ur Renal Epithelial Cell Urine Crystals Calcium Oxalate Crystal Uric Acid Crystals Triple Phos Crystals Other Crystals Amorphous Sediment Granular Casts Waxy Casts RBC Casts WBC Casts Other Casts Urine Mucus Urine Other Urine Trichomonas Urine Yeast Urine Sperm Ur Oval Fat Bodies Diagnostic Findings Telemetry personally reviewed: Sinus rhythm with paroxysmal AFib with RVR. Catheter tip culture from 03/15/2022: Staph species, greater than 1000 colonies. Medications Administered Current Inpatient Medications Acetaminophen (Acetaminophen 325 Mg Tab) 650 mg PO Q4H PRN PRN Reason: Pain or Fever Stop: 04/13/22 11:00 Last Admin: 03/16/22 05:02 Dose: 650 mg Documented by: Atorvastatin Calcium (Atorvastatin 20 Mg Tab) 20 mg PO QAM [facility] Stop: 04/13/22 11:14 Last Admin: 03/16/22 07:31 Dose: 20 mg Documented by: Calcium Acetate (Calcium Acetate 667 Mg Cap/Tab) 1,334 mg PO TIDM [facility] Stop: 04/13/22 11:59 Last Admin: 03/16/22 07:30 Dose: 1,334 mg Documented by: Dextrose (Dextrose 50% 50 Ml Syringe) 25 - 50 ml IV UD PRN; Protocol PRN Reason: Hypoglycemia Protocol Stop: 04/13/22 11:00 Ezetimibe ([facility] 10 Mg Tablet) [facility]: 04/13/22 11:29 Last Admin: 03/16/22 07:31 Dose: 10 mg Documented by: Epoetin Alan (Epoetin Alan 20,000 Units/Ml Vial) 20,000 units IV ONE ONE Stop: 03/16/22 09:41 Furosemide (Furosemide 80 Mg Tab) [facility] Stop: 04/13/22 11:29 Last Admin: 03/14/22 13:08 Dose: Not Given Documented by: Glucagon (Glucagon For Inj 1 Mg Vial) 1 mg SQ UD PRN; Protocol PRN Reason: Hypoglycemia Protocol Stop: 04/13/22 11:00 Glucose (Glucose 10 Tabs/Tube) 4 - 8 tabs PO UD PRN; Protocol PRN Reason: Hypoglycemia Protocol Stop: 04/13/22 11:00 Glucose (Glucose 40% Gel 15 Gm Tube) 15 - 30 gm PO UD PRN; Protocol PRN Reason: Hypoglycemia Protocol Stop: 04/13/22 11:00 Nafcillin Sodium 2,000 mg/ (Dextrose) 108 mls @ 100 mls/hr IV Q4H [facility] Stop: 03/29/22 11:59 Last Infusion: 03/16/22 08:55 Dose: Infused Documented by: Amiodarone HCl/Dextrose (Nexterone / D5w) 360 mg in 200 mls @ 16.667 mls/hr IV .Q12H [facility] Stop: 04/15/22 00:14 Last Admin: 03/15/22 23:58 Dose: 0.5 mg/min, 16.7 mls/hr Documented by: Sodium Chloride (Nss 1000ml) 1,000 mls @ 0 mls/hr IV .Q0M PRN PRN Reason: For Hemodialysis Use ONLY Stop: 03/16/22 15:39 Insulin Aspart (Insulin Aspart Per Unit) 0 units SC [facility] Stop: 04/13/22 11:29 Last Admin: 03/16/22 07:30 Dose: 2 units Documented by: Insulin Glargine (Insulin Glargine Solostar 100 Units/Ml 3 Ml Pen) 12 units SC HS [facility] Stop: 04/13/22 20:59 Last Admin: 03/15/22 20:20 Dose: 12 units Documented by: Lidocaine (Lidocaine 5% 1 Patch) 1 patch TD QAM [facility] Stop: 04/13/22 15:44 Last Admin: 03/16/22 07:31 Dose: 1 patch Documented by: Metoprolol Tartrate (Metoprolol Tartrate 1 Mg/Ml Vial) 5 mg IV Q4H PRN PRN Reason: sbp > 185, dbp >95, HR >120 Stop: 04/14/22 18:00 Last Admin: 03/16/22 08:05 Dose: 5 mg Documented by: Miscellaneous (Carbohydrates For Hypoglycemia ) 15 - 30 gm PO UD PRN PRN Reason: Hypoglycemia Protocol Stop: 04/13/22 11:00 Miscellaneous (Remove Lidoderm Patch) 1 ea N/A DAILY@2100 [facility] Stop: 04/13/22 20:59 Last Admin: 03/15/22 20:20 Dose: 1 ea Documented by: Ondansetron HCl (Ondansetron Inj 2 Mg/Ml 2 Ml Vial) 4 mg IV Q6H PRN PRN Reason: Nausea Stop: 04/13/22 11:00 Pantoprazole Sodium (Pantoprazole 40 Mg Tab) 40 mg PO BID [facility] Stop: 04/14/22 20:59 Last Admin: 03/16/22 07:31 Dose: 40 mg Documented by: Patiromer (Patiromer Calcium Sorbitex 8.4 Gm Pack) 8.4 gm PO DAILY [facility] Stop: 04/13/22 11:59 Last Admin: 03/16/22 07:32 Dose: 8.4 gm Documented by: Vitamin B Complex/Folic Acid (Nephrocaps) 1 cap PO QAM [facility] Stop: 04/14/22 08:59 Last Admin: 03/16/22 07:31 Dose: 1 cap Documented by: PG Care Time/CCT Total # of Minutes Spent Total Time Spent with Patient: Total time spent is greater than 50% in coordination of care (as documented) at patient's floor/unit and/or counseling patient: Coding Level of Care Code 27705 Subseq Hosp Care Lvl 3 Diagnoses Paroxysmal atrial fibrillation I48.0 Cardiomyopathy I42.9 Bacteremia R78.81 Pancytopenia D61.818 Thrombocytopenia D69.6 ESRD (end stage renal disease) on dialysis N18.6; Z99.2
--- NOTE | 2022-03-16 09:52 | Nephrology Progress Note ---
Date of Service March 16, 2022 Assessment & Plan Admission and Anticipated Discharge Date Admission Date: March 14, 2022 Subjective S---BP on the low side. NO SOB, New issues with HR. PHYSICAL EXAMINATION: GENERAL: Elderly white female who is morbidly obese. She is awake and alert, able to give a detailed account of her medical problems. She is in mild respiratory distress. NECK: Supple. No JVD. CHEST: Bilateral decreased breath sound. CARDIOVASCULAR: Irregularly irregular, tachycardic. Systolic murmur heard. She does have an AV fistula in the left upper extremity with bruit and thrill. AV fistula is not tender and no erythema. She does have about 2+ edema. ABDOMEN: Soft, nontender, obese. EXTREMITIES: Show 2+ edema. NEUROLOGIC: Moves all 4 extremities. Normal speech. No obvious focal deficit noted. LABORATORY TEST: Blood culture was positive for Staph aureus, which was sensitive to methicillin. hgb in the 7. K 3.3 CRP is very elevated at 42. Procalcitonin 95. Chest x-ray shows some evidence of CHF. X-ray of her shoulder did not show any obvious pathology. ASSESSMENT AND PLAN: A 62-year-old female with end-stage renal disease, on chronic hemodialysis, but with noncompliance and normally does 1-2 times per week. Now admitted with catheter-related bacteremia with methicillin-sensitive Staphylococcus aureus bacteremia. I have been asked for dialysis management. 1. End-stage renal disease: She did have dialysis yesterday. Her blood pressure runs low, probably because of the underlying bacteremia and sepsis, but even on good days, her blood pressure is on the low side. We will do dialysis again tomorrow on a 2K bath for 4 hours. However, the big question is whether we will have an access to do it or not. Her current tunneled catheter has been removed because of the Staphylococcus aureus bacteremia. Her arteriovenous graft has good bruit and thrill, but it is somewhat deep, which makes cannulation tricky. If we are able to successfully cannulate, it will be great, but if not, there will be a problem in which she may need a temporary catheter for the time being. We will try to take as much fluid as we can as allowed by her blood pressure. 4 hrs 3k and take 3 kilo off. 2. Methicillin-sensitive Staphylococcus aureus bacteremia: This is related with dialysis catheter. Unfortunately, she seems quite prone to bacteremia as she has had multiple episodes like this in the last few months. Infectious disease has been consulted. Her dialysis days are tricky because she does not always come for dialysis, which makes antibiotics dosing difficult. On the other hand, with an extremely complicated vascular status with multiple failed arteriovenous fistula and multiple episodes of catheter placement, as much as possible I would like to avoid the PICC line.Nafcillin gives massive salt load it seems so ideally will like to use something else. Results & Data ([facility]) Vital Signs (Past 12 Hours) Vital Signs Temp Pulse Resp BP Pulse Ox 03/16/22 08:05 135 H 93/74 L 03/16/22 03:25 140 H 125/82 03/16/22 03:08 128 H 03/16/22 00:54 86 03/16/22 00:00 36.8 C 79 26 H 117/59 L 95 03/15/22 22:00 82 20 100/61 94
[2022-03-16] MEDS: METOPROLOL SUCC 50MG EXT REL TAB PO SCH (10:40)
[2022-03-16] MEDS: AMIODARONE / D5W 360 MG/200 ML BAG IV SCH ×2 (10:42→22:13)
--- NOTE | 2022-03-16 11:00 | Hospitalist Progress Note ---
Date of Service March 16, 2022 Assessment & Plan (1) Fever: Plan: Fever 2/2 sepsis, gram-positive bacteremia S/p movable of right tunneled IJ on 03/11. Suspected catheter associated bacteremia. Catheter tip growing staph species consistent with blood cultures as noted below MSSA 01/10 blood cultures, continue nafcillin COVID/bio fire negative CXR without evidence of pneumonia, some pulmonary edema with volume overload Procalcitonin elevated, downtrending Patient pancytopenic. Anaplasmosis smear negative, PCR pending LFTs normal Right shoulder x-ray consistent with arthritis Reviewed infectious disease recommendations. Recommended to discontinue nafcillin. Blood cultures were repeated this morning. Recommend switching to cefazolin 1 g IV and higher dose of 2 g IV after each hemodialysis session assuming 3 sessions a week with 4 weeks of total treatment. If fevers/blood cultures continue be positive will require KIKE to rule out endocarditis as TTE suboptimal. Recommend deferring hemodialysis catheter placement until at least 48, optimally 72 hours of negative surveillance cultures although this may or may not be feasible depending on potassium/fluid status/success with fistula above. Surveillance cultures ordered 03/16 - R shoulder pain without acute abnormality on CXR (2) Rapid atrial fibrillation: Plan: Rapid A. fib with initial SVT with rates in 200s evening of 03/14 Did not improve with vagal maneuvers, was associated with hypotension to systolic 70s Patient was given digoxin 250 mcg, amiodarone drip and converted. Did return to A. fib, was reloaded with IV after oral and again rate improved. Following with cards as below Heparin deferred due to thrombocytopenia Patient may need watchman procedure for recurrent A. fib with anemia and thrombocytopenia Echo: EF 30-35% with global hypokinesis. No valvular abnormalities. Mild pulmonary hypertension. Similar to 11/18/2021. Mild right ventricular dilation with mildly reduced systolic function, mild left atrial dilation. Cardiology consulted. Overall rates improving, recommend continuing amiodarone drip today and then convert to oral if doing well 03/17. Anticoagulation for stroke risk reduction when able, unable to do this in the setting of history of significant bleeding requiring transfusion and current thrombocytopenia. Potential candidate for both watchman and ICD, however these are deferred in the setting of active bacteremia. (3) Hypotension: Plan: Somewhat low at baseline, acutely lowered in the setting of A. fib RVR and sepsis Lactate negative Has not needed pressors (4) Hyperkalemia: Plan: -secondary to ESRD improved after kayexolate, IV insulin, calcium gluconate at OSH -Nephrology consult appreciated -continue Patiromer po 5x/week Electrolyte panel pending (5) ESRD (end stage renal disease) on dialysis: Plan: only goes to HD on / and known for missing sessions at times as per Nephrology notes on HD for 2 years has TIJ perm cath in right side-just replaced on 03/11, removed 03/15 as noted received HD 03/14 for hyperkalemia appreciate Nephro consult continue Phos low tid, Nephrocaps replace Lokelma with Patiromer while here Cefazolin dose adjusted on dialysis days as above Pending dialysis with attempted access at deep AV graft today (6) Thrombocytopenia: Plan: -Platelets 52 on admission. Currently hovering 4240 from prior baseline in low 100s -Likely sepsis induced, anticoagulation contraindicated Trend daily No clinical bleeding at bedside (7) CHF (congestive heart failure): Plan: HFrEF as per ECHO 11/2021, EF 35% mange fluid status with HD Metoprolol held for hypotension (8) Weakness: Plan: due to sepsis (9) Chronic anemia: Plan: Continue Protonix Continue iron, B12, folate Trend CBC Hemoglobin threshold 7.0 (10) HTN (hypertension): Plan: hold home metoprolol due to hypotension (11) Central venous catheter in place: Plan: tunneled IJ removed and cultures, has left AC endograft, and ultrasound-guided IV (12) IDDM (insulin dependent diabetes mellitus): Plan: - Hyperglycemic AM 8 - Lantus increased to 15 - Pharmacy consulted for DM in ESRD - Also with pseudohyponatremia, corrected sodium 137/Ruth Plan: DVT ppx -SCDs, hold heparin SQ due to thrombocytopenia Downgraded to PCU 03/15 DNR/DNI as per d/w patient Admission and Anticipated Discharge Date Admission Date: March 14, 2022 Subjective Patient fatigued this morning, but globally she feels better than yesterday. Is somewhat nervous for dialysis given that she is aware that they will be attempting to access her arm and was told her fistula was fairly deep. Does feel her overall strength is better, pain in right shoulder is improving but still present and worsened with movement No change in sensation in fingertips. Denies fever/chills/sweats overnight. Is pending dialysis, blood work pending. Denies bleeding. Denies chest pain/chest pressure/shortness of breath. Review of Systems Review of Systems: All systems reviewed & are unremarkable except as noted in Subjective Physical Exam Physical Exam: General: A&Ox3. NAD. Cooperative. HEENT: Atraumatic, normocephalic. Pulm: CTAB A&P. -wheezes, -rales, -rhonchi. Symmetrical chest rise. No increase in work of breathing. No respiratory distress. Cardiac: IRR, soft systolic murmur, no rubs/gallops radial pulses intact and symmetrical. Abdominal: Nontender, nondistended, soft. BS present. Extremities: Radial pulse intact in right and left upper extremity. Sensation to soft touch grossly intact in hands and feet without asymmetry. Right shoulder with minimal tenderness to palpation, mild pain on abduction at the shoulder and forward flexion. Results & Data Results & Data ([facility]) Vital Signs (Past 12 Hours) Vital Signs Temp Pulse Resp BP Pulse Ox 03/16/22 08:05 135 H 93/74 L 03/16/22 03:25 140 H 125/82 03/16/22 03:08 128 H 03/16/22 00:54 86 03/16/22 00:00 36.8 C 79 26 H 117/59 L 95 PG Care Time/CCT Total # of Minutes Spent Total Time Spent with Patient: Total time spent is greater than 50% in coordination of care (as documented) at patient's floor/unit and/or counseling patient: Coding Level of Care Code 17960 Subseq Hosp Care Lvl 3 Diagnoses Fever R50.9 Rapid atrial fibrillation I48.91 Hypotension I95.9 Hyperkalemia E87.5 ESRD (end stage renal disease) on dialysis N18.6; Z99.2 Thrombocytopenia D69.6 CHF (congestive heart failure) I50.9 Weakness R53.1 Chronic anemia D64.9 HTN (hypertension) I10 Central venous catheter in place Z78.9 IDDM (insulin dependent diabetes mellitus)
--- NOTE | 2022-03-16 13:43 | Electrocardiogram Report ---
Test Reason : Blood Pressure : / mmHG Vent. Rate : 203 BPM Atrial Rate : 192 BPM P-R Int : 000 ms QRS Dur : 086 ms QT Int : 210 ms P-R-T Axes : 000 130 -62 degrees QTc Int : 386 ms Atrial fibrillation with rapid ventricular response Right axis deviation Low voltage QRS Nonspecific ST and T wave abnormality Abnormal ECG When compared with ECG of 14-MAR-2022 13:42, Atrial fibrillation has replaced Sinus rhythm Vent. rate has increased BY 81 BPM Nonspecific T wave abnormality, worse in Inferior leads Confirmed by Cain Perez ([id number]) on 03/16/2022 1:43:02 PM Referred By: Adrianna Ordoñez Confirmed By:Cain Perez
[2022-03-16] MEDS ORDERED: PHARMACY GLYCEMIC MGMT CONSULT PRN (13:47)
--- NOTE | 2022-03-16 13:52 | Electrocardiogram Report ---
Test Reason : Blood Pressure : / mmHG Vent. Rate : 141 BPM Atrial Rate : 178 BPM P-R Int : 000 ms QRS Dur : 098 ms QT Int : 296 ms P-R-T Axes : 000 118 182 degrees QTc Int : 454 ms Atrial fibrillation with rapid ventricular response Right axis deviation Low voltage QRS Nonspecific T wave abnormality Abnormal ECG When compared with ECG of 14-MAR-2022 20:24, No significant change was found Confirmed by Cain Perez ([id number]) on 03/16/2022 1:52:15 PM Referred By: Adrianna Ordoñez Confirmed By:Cain Perez
--- NOTE | 2022-03-16 13:54 | Electrocardiogram Report ---
Test Reason : Blood Pressure : / mmHG Vent. Rate : 098 BPM Atrial Rate : 098 BPM P-R Int : 190 ms QRS Dur : 088 ms QT Int : 320 ms P-R-T Axes : 080 114 162 degrees QTc Int : 408 ms Sinus rhythm with Premature supraventricular complexes and with occasional Premature ventricular comp lexes Right axis deviation Nonspecific ST and T wave abnormality Abnormal ECG When compared with ECG of 15-MAR-2022 00:43, Sinus rhythm has replaced Atrial fibrillation Confirmed by Cain Perez ([id number]) on 03/16/2022 1:53:43 PM Referred By: Adrianna Ordoñez Confirmed By:Cani Perez
--- NOTE | 2022-03-16 14:02 | Procedure Note ---
Procedure Note Date of Service March 16, 2022 Note CENTRAL LINE PROCEDURE NOTE: Procedure: Temporary hemodialysis Line Placement Provider: Juan Mukherjee MD Indication: Need for vascular access for HD Anesthesia: 5 mL lidocaine 1% Site: Right internal jugular: Patient's groins were infested with yeast and it was not felt to be an appropriate site. Due to the patient's rapid A. fib elected to pursue 13 cm catheter to prevent right atrial irritation leading to progressive arrhythmia Consent was signed and placed on the chart prior to procedure. Indication, risks, and benefits were explained at length. A time-out was completed verifying correct patient, procedure, site, posit ioning, and implants(s) or special equipment if applicable. Patients right neck was cleansed and draped in the typical sterile fashion using Chloraprep. The Internal Jugular Vein and Carotid Artery were identified using ultrasound. The superficial tissue was anesthetized using 5mL of 1% lidocaine without epinephrine under direct visualization with the ultrasound. After adequate anesthetization was achieved, the Internal Jugular vein was cannulated under direct ultrasound guidance using an introducer needle on a syringe. Good venous blood return was maintained prior to removal of syringe from introducer needle. Using Seldinger Technique, a guide wire was advanced through the introducer needle without resistance. The introducer needle was removed and ultrasound images were obtained of the guide wire within the Internal Jugular Vein. A small incision was made in penetrating fashion at the guide wire insertion site utilizing an 11 blade scalpel. Serial dilators were advanced to the vessel without resistance. The final dilator was exchanged for the a 13 cm HD catheter with secondary pigtail port which was advanced into the vessel without resistance. The guide wire was removed intact from the catheter without issue. Claves were placed on on the pigtail port with confirmation of good blood flow from each lumen. Each port was easily flushed with sterile saline. The catheter was placed at the hub and sutured in place. BioPatch was applied to the catheter and a sterile Tegaderm dressing was applied over the catheter with careful attention to sterility. Patient tolerated procedure well. No immediate complications were met. Post procedure x-ray was completed, placement was appropriate and no pneumothorax was noted. Estimated blood loss: 5 mL Coding CPT Codes Tubes, Drains, and Vasc Access - Tubes, Drains, and Vasc Access: [id number] Insertion of cannula for hemodialysis ([id number]) Tubes, Drains, and Vasc Access - Tubes, Drains, and Vasc Access: [id number] Ultrasound Guidance For Vascular ([id number]) [facility] [place]odes (Charges) Tubes, Drains, and Vasc Access Procedure 1: Tubes, Drains, and Vasc Access: [id number] Insertion of cannula for hemodialysis Procedure 2: Tubes, Drains, and Vasc Access: [id number] Ultrasound Guidance For Vascular
--- NOTE | 2022-03-16 14:12 | XRay Report ---
XR chest 1V portable HISTORY: 62 years-old Female dialysis cath placement status post placement of a right IJ central sp ous catheter COMPARISON: Chest radiograph 03/14/2022 TECHNIQUE: Portable AP view of the chest FINDINGS: The cardiac silhouette is enlarged. Right IJ central venous catheter is noted with distal tip noted i n the expected location of the right brachiocephalic vein. No pneumothorax or large pleural effusion. Pulmonary vascular congestion. Moderate hemidiaphragmatic elevation. Bones appear grossly intact. IMPRESSION: 1. Right IJ central venous catheter distal tip is noted within the expected location of the right bra chiocephalic vein. No pneumothorax. 2. Cardiomegaly with pulmonary vascular congestion. ACT 112: Negative or not required by law. The above report was generated using voice recognition software. It may contain grammatical, syntax o r spelling errors. Electronically signed by: Maik Narayanan M.D. 03/16/2022 2:11 PM
--- NOTE | 2022-03-16 14:21 | Pharmacy Report ---
Pharmacy Glycemic Short Note 2 - Date of Service March 16, 2022 - Glycemic Short BSG Results (Last 24 hours): 03/15/22 03/15/22 03/16/22 16:34 20:12 07:11 Glucose POC Glucose 205 H 253 H 188 H 03/16/22 03/16/22 08:21 11:30 Glucose 457 H* POC Glucose 236 H OUTPATIENT ANTIDIABETIC REGIMEN: * Lantus 12 units Hs * A1c unreliable in the setting of ESRD/Dialysis ASSESSMENT: * Patient admitted with bacteremia from HD catheter, catheter was removed. Now with temporary line for HD. * Nafcillin changed to ancef today/ will reduce dextrose administration. * Will increase basal dose tonight * Add carb ratio and monitor BSG trends PLAN FOR INPATIENT GLYCEMIC CONTROL: * Hold outpatient oral diabetes medications * Basal insulin * Lantus 15 units HS * Bolus insulin * NovoLog per scale ACHS or Q6hrs while NPO * Goal Range: Low 110 mg/dL - High 140 mg/dL * Correction Factor: 30 mg/dL/unit * Nutritional / Prandial insulin per carb ratio of 1 unit per 10 grams CHO consumed
[2022-03-16] MEDS ORDERED: ceFAZolin 2000MG 2,000 MG/15 ML SYR IV SCH (15:00)
[2022-03-16] MEDS ORDERED: HEPARIN SOD (PORCINE) 1000 UNIT/ML ONE (15:37)
--- NOTE | 2022-03-16 15:56 | Procedure Note ---
Procedure Note Date of Service March 16, 2022 Note CENTRAL LINE PROCEDURE NOTE: Procedure: Hemodialysis Line Placement Provider: Juan Mukherjee MD Indication: Access for hemodialysis temporarily Anesthesia: None Site: Right IJ Consent was signed and placed on the chart prior to procedure. Indication, risks, and benefits were explained at length. The previous leave placed 13 cm catheter had been accessed by dialysis but unfortunately they were unable to get adequate flow despite reversal. I elected to change the 13 cm catheter to a 20 cm catheter to try and improve flow rates. The existing catheter was cleaned extensively using chlorhexidine. A sterile field was established. A wire was passed through the distal port without difficulty. Sutures were removed and the catheter was withdrawn over the wire leaving the wire in place. Using that wire, a flushed 20 cm dialysis catheter was then advanced over the wire without difficulty. The wire was removed. All ports flushed and blaise easily. The ports were packed with 1.4 mL of 1-10,000 heparin and caps were placed. The catheter was sutured in place and a sterile dressing was applied. The patient tolerated the procedure well. Estimated blood loss: Less than 3 mL Coding CPT Codes Tubes, Drains, and Vasc Access - Tubes, Drains, and Vasc Access: [id number] Insertion of cannula for hemodialysis ([id number]) [facility] [place] Procedure Codes (Charges) Tubes, Drains, and Vasc Access Procedure 1: Tubes, Drains, and Vasc Access: [id number] Insertion of cannula for hemodialysis
--- NOTE | 2022-03-16 16:30 | XRay Report ---
SINGLE VIEW CHEST CLINICAL HISTORY: Central venous catheter placement. FINDINGS: An AP, portable, upright chest radiograph is compared to study performed earlier the same d ay 03/16/2022. The examination is degraded by portable technique and large body habitus. A right corporate intern al jugular central venous catheter has been advanced. The tip projects over the cavoatrial junction. The heart is enlarged. There is pulmonary vascular congestion. Atelectasis is noted at the lung bases . No airspace consolidation or large pleural effusion is identified. No pneumothorax is seen. The ske letal structures are osteopenic. The bony thorax is grossly intact. IMPRESSION: 1. A right internal jugular central venous catheter has been advanced as above. No pneumothorax is se en post procedure. 2. Cardiomegaly with pulmonary vascular congestion. This appears modestly worsened from today's [facility] er examination. ACT 112: Negative or not required by law. Electronically signed by: Gavin Holder M.D. 03/16/2022 4:29 PM
[2022-03-16] MEDS: INSULIN GLARGINE SOLOSTAR 100 UNITS/ML 3 ML PEN SC SCH (16:47)
[2022-03-16 20:01] LABS: Hemoglobin 7.9 g/dL (12.0-16.0)
[2022-03-16] MEDS ORDERED: INSULIN GLARGINE SOLOSTAR 100 UNITS/ML 3 ML PEN SC SCH (21:00)
--- NOTE | 2022-03-16 22:04 | Electrocardiogram Report ---
Test Reason : Blood Pressure : / mmHG Vent. Rate : 151 BPM Atrial Rate : 144 BPM P-R Int : 000 ms QRS Dur : 092 ms QT Int : 272 ms P-R-T Axes : 000 121 245 degrees QTc Int : 432 ms Atrial fibrillation with rapid ventricular response Right axis deviation Low voltage QRS Nonspecific ST and T wave abnormality Abnormal ECG When compared with ECG of 15-MAR-2022 06:06, Atrial fibrillation has replaced Sinus rhythm Vent. rate has increased BY 53 BPM Premature ventricular complexes are no longer Present Confirmed by Cain Perez ([id number]) on 03/16/2022 10:04:11 PM Referred By: Adrianna Ordoñez Confirmed By:Cain Perez
[2022-03-17] MEDS: INSULIN ASPART PER UNIT SC SCH ×6 (00:07→20:13)
[2022-03-17] MEDS: METOPROLOL TARTRATE 1 MG/ML VIAL IV PRN ×2 (00:35→04:35)
[2022-03-17] MEDS: ACETAMINOPHEN 325 MG TAB PO PRN ×2 (04:36→20:13)
[2022-03-17 05:58] LABS: Hematocrit (blood only) 24.4 % (37-47); Hemoglobin 7.9 g/dL (12.0-16.0); Mean Corpuscular Hemoglobin 33.8 pg (25-34); Mean Corpuscular Hgb Conc 32.4 g/dL (32-36); Mean Corpuscular Volume 104.3 fL (80-100); Mean Platelet Volume 12.5 fL (7.4-10.4); Platelet Count 60 K/uL (130-400); RDW Coefficient of Variation 13.7 % (11.5-14.5); RDW Standard Deviation 51.9 fL (36.4-46.3); Red Blood Count 2.34 M/uL (4.2-5.4); White Blood Count 8.22 K/uL (4.8-10.8)
[2022-03-17 06:30] LABS: Albumin Level 2.9 gm/dl (3.4-5.0); BUN Creatinine Ratio 9.4 (10-20); Bilirubin,Total 0.7 mg/dl (0.2-1.0); Calcium 8.4 mg/dl (8.5-10.1); Creatinine Clr Calc Pharmacy 8.7 ml/min; Est GFR (Non-African American) 4.3 ml/min; Globulin 2.9 gm/dl (2.5-4.0); Magnesium 2.3 mg/dl (1.7-2.4); Phosphorus 5.7 mg/dl (2.5-4.9); Potassium 3.6 mmol/L (3.5-5.1); Total Protein 5.8 gm/dl (6.0-8.3)
[2022-03-17 06:39] LABS: Basophils # (auto) 0.01 K/uL (0-0.2); Basophils % (auto) 0.1 %; Eosinophils # (auto) 0.02 K/uL (0-0.5); Eosinophils % (auto) 0.2 %; Immature Granulocytes # (auto) 0.06 K/uL (0.00-0.02); Immature Granulocytes % (auto) 0.7 %; Lymphocytes # (auto) 0.47 K/uL (1.2-3.4); Lymphocytes % (auto) 5.7 %; Monocytes % (auto) 9.7 %; Neutrophils # (auto) 6.86 K/uL (1.4-6.5); Neutrophils % (auto) 83.6 %; Polychromasia 1+; Target Cells 1+
[2022-03-17] MEDS: ATORVASTATIN 20 MG TAB PO SCH (08:42)
[2022-03-17] MEDS: METOPROLOL SUCC 50MG EXT REL TAB PO SCH ×2 (08:42→08:51)
[2022-03-17] MEDS: EZETIMIBE 10 MG TABLET PO SCH (08:42)
[2022-03-17] MEDS: NEPHROCAPS PO SCH (08:42)
[2022-03-17] MEDS: CALCIUM ACETATE 667 MG CAP/TAB PO SCH ×3 (08:42→16:07)
[2022-03-17] MEDS: PANTOprazole 40 MG TAB PO SCH ×2 (08:42→20:13)
[2022-03-17] MEDS: LIDOCAINE 5% 1 PATCH TD SCH (08:43)
[2022-03-17] MEDS: AMIODARONE / D5W 360 MG/200 ML BAG IV SCH ×2 (09:56→21:02)
--- NOTE | 2022-03-17 12:36 | CT Scan Report ---
CT shoulder RT wo con CLINICAL HISTORY: shoulder pain, bacteremia COMPARISON STUDY: Standard radiographs from 03/14/2022 CT DOSE: 966.94 mGy.cm TECHNIQUE: Standard CT of the right shoulder is performed without IV contrast. Multiplanar reconstruc tion is performed. A dose lowering technique was utilized adhering to the principles of ALARA. FINDINGS: Bones: The bones are osteopenic. There is no evidence for an acute fracture or dislocation. There are no lytic or blastic lesions. Joints: There is again mild narrowing of the glenohumeral joint and moderate narrowing of the acromio clavicular joint with osteophyte formation present. The bones are in anatomic alignment. Soft tissues: There is no focal soft tissue swelling. There are no focal fluid collections. Lung apex: The right lung apex was included on this study. There are multiple noncalcified pulmonary nodules present, the largest measuring 2.0 x 1.9 cm. These findings are highly suspicious for metasta tic disease. The patient is reported to have bacteremia. Septic emboli could also be in the different ial. CT of the entire chest is recommended. IMPRESSION: 1. No acute osseous pathology. 2. Osteopenia and osteoarthritis. If there is clinical concern for rotator cuff pathology, MR would b e the study of choice for further evaluation. 3. Numerous pulmonary nodules within the imaged portion of the right upper lobe. The major differenti al diagnosis is metastatic disease. The patient with bacteremia, septic emboli would also be in the d ifferential. CT of the chest with contrast is recommended for further evaluation. A tiger text will be sent to the ordering physician. ACT 112: Positive. There are findings on this exam that require communication between the performing entity and the patient following Patient Test Result Information Act ([place] Act 112) guidelines. Electronically signed by: Robin Luna M.D. 03/17/2022 12:34 PM
--- NOTE | 2022-03-17 13:29 | Ultrasound Report ---
US hemodialysis access CLINICAL HISTORY: bacteremia. L arm TECHNIQUE: Left fistula real-time vascular ultrasound with Color Doppler imaging. COMPARISON: None available at the time of this dictation. FINDINGS: Flow is seen through the fistula. However, there is a 3.6 cm hypoechoic area abutting the vessel with out vascular flow in the proximal forearm which may represent a thrombus. Maximum velocity is 522 cm/ s. Impression: Elevated maximum velocity, 522 cm/s, concerning for greater than 50% stenosis. This may be secondary to a thrombus about the fistula in the left proximal forearm. ACT 112: Negative or not required by law. Electronically signed by: Cachorro Kennedy M.D. 03/17/2022 1:28 PM
--- NOTE | 2022-03-17 13:34 | Hospitalist Progress Note ---
Date of Service March 17, 2022 Assessment & Plan (1) Fever: Plan: Fever 2/2 sepsis, gram-positive bacteremia S/p movable of right tunneled IJ on 03/11 for suspected catheter associated bacteremia. Catheter tip growing staph species consistent with blood cultures as noted below Right shoulder CT without joint pathology, but multiple nodules on right upper lung concerning for septic emboli versus metastatic disease. CT-C with contrast ordered, functionally anuric and HD dependent - Surveillance BC 2/4+ from [facility]. Additional surveillance cultures ordered. - Continued on cefazolin 1g IV increased to 2g IV post dialysis sessions - Discussed HD IJ line. Given dialysis dependence, difficulty with access with limited sites, and concern for ability to replace line recommended to salvage and continue with abx as above while pursuing other seeding workup. Left arm fistula ultrasound ordered as potential source of seeding. Discussed w vascular. 3.6 cm hyperechoic area abutting the vessel without vascular flow which may represent thrombus, fistula without surrounding fluid. MSSA 4/4 blood cultures, positive surveillance cultures, repeats pending COVID/bio fire negative CXR without evidence of pneumonia, some pulmonary edema with volume overload. Procalcitonin elevated on admit and downtrending Patient pancytopenic. Anaplasmosis smear negative, PCR pending LFTs normal Right shoulder x-ray consistent with arthritis Reviewed infectious disease recommendations. Recommended to discontinue nafcillin. Cefazolin as above. CT for septic emboli v malignancy as noted, has recommended to proceed with KIKE. Ideally would not have temporary line with bacteremia, but needs access and reasonable to leave for now with continued IV abx. Cardiology notified for KIKE. Surveillance cultures ordered 03/16 (2) Rapid atrial fibrillation: Plan: Rapid A. fib with initial SVT with rates in 200s evening of 03/14 Did not improve with vagal maneuvers, was associated with hypotension to systolic 70s Patient was given digoxin 250 mcg, amiodarone drip and converted. Did return to A. fib, was reloaded with IV after oral and again rate improved. Following with cards as below Heparin deferred due to thrombocytopenia Patient may need watchman procedure for recurrent A. fib with anemia and thrombocytopenia Echo: EF 30-35% with global hypokinesis. No valvular abnormalities. Mild pulmonary hypertension. Similar to 11/18/2021. Mild right ventricular dilation with mildly reduced systolic function, mild left atrial dilation. Cardiology consulted. Remains tachycardic, is continued to be bacteremic and some hypotension during dialysis but maintaing maps >65. Continued on amiodarone gtt. MTP/Dilt limited by hypotension and rEF, dig limited by renal function. Anticoagulation for stroke risk reduction when able, unable to do this in the setting of history of significant bleeding requiring transfusion and current thrombocytopenia. Potential candidate for both watchman and ICD, however these are deferred in the setting of active bacteremia. (3) Hypotension: Plan: Somewhat low at baseline, acutely lowered in the setting of A. fib and sepsis Lactate negative Has not needed pressors (4) Hyperkalemia: Plan: -secondary to ESRD improved after kayexolate, IV insulin, calcium gluconate at OSH -Nephrology consult appreciated -Patiromer as noted Electrolyte panel pending (5) ESRD (end stage renal disease) on dialysis: Plan: only goes to HD on / and known for missing sessions at times as per Nephrology notes on HD for 2 years has TIJ perm cath in right side-just replaced on 03/11, removed 03/15 as noted received HD 03/14 for hyperkalemia appreciate Nephro consult continue Phos low tid, Nephrocaps replace Lokelma with Patiromer while here Cefazolin dose adjusted on dialysis days as above Fistula with possible clot as noted above Pt reports she makes up to a small cup of a urine some days, discussed w Nephro and patient is functionally anuric. May use full contrast for CT-C. (6) Thrombocytopenia: Plan: -Platelets 52 on admission. Currently hovering 4240 from prior baseline in low 100s, improving to ~60 03/17 -Likely sepsis induced, anticoagulation contraindicated Trend daily No clinical bleeding at bedside (7) CHF (congestive heart failure): Plan: HFrEF as per ECHO 11/2021, EF 35% mange fluid status with HD Metoprolol held for hypotension (8) Weakness: Plan: due to sepsis (9) Chronic anemia: Plan: Continue Protonix Continue iron, B12, folate Trend CBC Hemoglobin threshold 7.0 (10) HTN (hypertension): Plan: hold home metoprolol due to hypotension (11) Central venous catheter in place: Plan: tunneled IJ removed and cultured, has left AC endograft, and ultrasound-guided IV - Temp IJ as above (12) IDDM (insulin dependent diabetes mellitus): Plan: - Hyperglycemic AM 03/16 - Continue basal/bolus - Pharmacy consulted for DM in ESRD Plan: DVT ppx -SCDs, hold heparin SQ due to thrombocytopenia Downgraded to PCU 03/15 DNR/DNI as per d/w patient Admission and Anticipated Discharge Date Admission Date: March 14, 2022 Subjective Seen at the bedside this morning. Continues to feel weak, fatigued. Denies fever/chills. Denies chest pain, feels she is breathing little quickly. Con tinues to have some shoulder pain which she reports is being over her shoulder but not inside the shoulder. Is able to internally and externally rotate the shoulder without pain, pain is worsened on shoulder flexion and palpation of the anterior shoulder. Denies back/spine pain. Denies left arm pain. Review of Systems Review of Systems: All systems reviewed & are unremarkable except as noted in Subjective Physical Exam Physical Exam: General: A&Ox3. NAD. Cooperative. Appears fatigued. Right IJ in place HEENT: Atraumatic, normocephalic. Pupils equal, vision and hearing grossly intact. Pulm: Diminished, symmetrical chest rise. No increase in work of breathing. No respiratory distress. Cardiac: Irregular, tachycardic soft systolic murmur, no rubs/gallops radial pulses intact and symmetrical. Abdominal: Nontender, nondistended, soft. BS present. Extremities: Radial pulse intact in right and left upper extremity. Sensation to soft touch grossly intact in hands and feet without asymmetry. Right shoulder with anterior tenderness to palpation, mild pain on abduction at the shoulder and forward flexion. No pain on internal/external rotation of the right shoulder Results & Data Results & Data ([facility]) Vital Signs (Past 12 Hours) Vital Signs Temp Pulse Pulse Resp BP BP Pulse Ox 03/17/22 12:00 123 H 100/64 03/17/22 11:30 135 H 118/68 03/17/22 11:00 135 H 80/53 L 03/17/22 10:30 101 H 79/41 L 03/17/22 10:00 138 H 23 03/17/22 09:59 122 H 86/55 L 03/17/22 09:32 136 H 12 100/54 L 03/17/22 09:30 138 H 20 100/54 L 03/17/22 09:02 129 H 18 111/72 06/09/22 09:00 118 H 21 92/55 L 03/17/22 08:45 131 H 20 92/55 L 03/17/22 08:37 117 H 20 89/47 L 03/17/22 08:34 15 03/17/22 08:30 118 H 98/47 L 03/17/22 08:16 88 29 H 146/111 H 03/17/22 08:09 36.9 C 95 H 93 H 32 H 144/72 H 03/17/22 08:01 91 H 12 125/60 03/17/22 08:00 91 H 25 H 03/17/22 07:30 89 16 03/17/22 07:28 36.9 C 93 H 18 133/70 98 03/17/22 07:07 85 26 H 133/70 03/17/22 07:00 85 14 03/17/22 06:30 85 27 H 03/17/22 06:00 112 H 24 03/17/22 05:30 124 H 27 H 92 03/17/22 05:00 127 H 26 H 85 L 03/17/22 04:35 139 H 137/65 03/17/22 04:30 130 H 27 H 94 03/17/22 04:00 37.1 C 128 H 130 H 31 H 137/65 137/65 91 03/17/22 03:44 127 H 31 H 111/68 03/17/22 03:30 125 H 20 03/17/22 03:00 134 H 24 03/17/22 02:30 87 25 H 03/17/22 02:00 86 21 70 L 03/17/22 01:30 89 19 77 L PG Care Time/CCT Total # of Minutes Spent Total Time Spent with Patient: Total time spent is greater than 50% in coordination of care (as documented) at patient's floor/unit and/or counseling patient: Coding Level of Care Code 23457 Subseq Hosp Care Lvl 3 Diagnoses Fever R50.9 Rapid atrial fibrillation I48.91 Hypotension I95.9 Hyperkalemia E87.5 ESRD (end stage renal disease) on dialysis N18.6; Z99.2 Thrombocytopenia D69.6 CHF (congestive heart failure) I50.9 Weakness R53.1 Chronic anemia D64.9 HTN (hypertension) I10 Central venous catheter in place Z78.9 IDDM (insulin dependent diabetes mellitus)
[2022-03-17] MEDS ORDERED: LOPERAMIDE HCL 2 MG CAP PO STA (14:17)
[2022-03-17] MEDS ORDERED: LOPERAMIDE HCL 2 MG CAP PO ONE (14:19)
--- NOTE | 2022-03-17 14:20 | Nephrology Progress Note ---
Date of Service March 17, 2022 Assessment & Plan Admission and Anticipated Discharge Date Admission Date: March 14, 2022 Subjective Subjective S---BP low but HR fast with Afibb. Some SOB. CVC worked today and we did dialysis but not enough fluid removed because of Low BP. PHYSICAL EXAMINATION: GENERAL: Elderly white female who is morbidly obese. She is awake and alert, able to give a detailed account of her medical problems. She is in mild respiratory distress. NECK: Supple. No JVD. CHEST: Bilateral decreased breath sound. CARDIOVASCULAR: Irregularly irregular, tachycardic. Systolic murmur heard. She does have an AV fistula in the left upper extremity with bruit and thrill. AV fistula is not tender and no erythema. She does have about 2+ edema. ABDOMEN: Soft, nontender, obese. EXTREMITIES: Show 2+ edema. NEUROLOGIC: Moves all 4 extremities. Normal speech. No obvious focal deficit noted. LABORATORY TEST: Blood culture from 03/16 still was positive for Staph aureus. Now multiple lesions in the lung ASSESSMENT AND PLAN: A 62-year-old female with end-stage renal disease, on chronic hemodialysis, but with noncompliance and normally does 1-2 times per week. Now admitted with catheter-related bacteremia with methicillin-sensitive Staphylococcus aureus bacteremia. I have been asked for dialysis management. 1. End-stage renal disease: She did have dialysis earlier today. Her blood pressure runs low, probably because of the underlying bacteremia and sepsis, but even on good days, her blood pressure is on the low side. Next HD will be Monday 2. Methicillin-sensitive Staphylococcus aureus bacteremia: This is related with dialysis catheter. Unfortunately, she seems quite prone to bacteremia as she has had multiple episodes like this in the last few months. Infectious disease has been consulted. Her dialysis days are tricky because she does not always come for dialysis, which makes antibiotics dosing difficult. On the other hand, with an extremely complicated vascular status with multiple failed arteriovenous fistula and multiple episodes of catheter placement, as much as possible I would like to avoid the PICC line.Nafcillin gives massive salt load it seems so ideally will like to use something else. Now has multiple lesions in chest also. Results & Data ([facility]) Vital Signs (Past 12 Hours) Vital Signs Temp Pulse Pulse Resp BP BP Pulse Ox 03/17/22 12:00 123 H 100/64 03/17/22 11:30 135 H 118/68 03/17/22 11:00 135 H 80/53 L 03/17/22 10:30 101 H 79/41 L 03/17/22 10:00 138 H 23 03/17/22 09:59 122 H 86/55 L 03/17/22 09:32 136 H 12 100/54 L 03/17/22 09:30 138 H 20 100/54 L 03/17/22 09:02 129 H 18 111/72 03/17/22 09:00 118 H 21 92/55 L 03/17/22 08:45 131 H 20 92/55 L 03/17/22 08:37 117 H 20 89/47 L 03/17/22 08:34 15 03/17/22 08:30 118 H 98/47 L 03/17/22 08:16 88 29 H 146/111 H 03/17/22 08:09 36.9 C 95 H 93 H 32 H 144/72 H 03/17/22 08:01 91 H 12 125/60 03/17/22 08:00 91 H 25 H 03/17/22 07:30 89 16 03/17/22 07:28 36.9 C 93 H 18 133/70 98 03/17/22 07:07 85 26 H 133/70 03/17/22 07:00 85 14 03/17/22 06:30 85 27 H 03/17/22 06:00 112 H 24 03/17/22 05:30 124 H 27 H 92 03/17/22 05:00 127 H 26 H 85 L 03/17/22 04:35 139 H 137/65 03/17/22 04:30 130 H 27 H 94 03/17/22 04:00 37.1 C 128 H 130 H 31 H 137/65 137/65 91 03/17/22 03:44 127 H 31 H 111/68 03/17/22 03:30 125 H 20 03/17/22 03:00 134 H 24 03/17/22 02:30 87 25 H
--- NOTE | 2022-03-17 14:20 | Pharmacy Report ---
Pharmacy Glycemic Short Note 2 - Date of Service March 17, 2022 - Glycemic Short BSG Results (Last 24 hours): 03/16/22 03/16/22 03/16/22 16:26 16:27 18:44 Glucose POC Glucose 462 H* 394 H* 275 H 03/16/22 03/17/22 03/17/22 21:03 00:04 04:34 Glucose POC Glucose 195 H 159 H 149 H 03/17/22 03/17/22 03/17/22 05:34 07:08 11:29 Glucose 137 H POC Glucose 145 H 137 H OUTPATIENT ANTIDIABETIC REGIMEN: * Lantus 12 units Hs * A1c unreliable in the setting of ESRD/Dialysis ASSESSMENT: 03/17 * BSGs elevated yesterday afternoon, improved today * Will continue current basal/parameters * Continue to monitor 03/16 * Patient admitted with bacteremia from HD catheter, catheter was removed. Now with temporary line for HD. * Nafcillin changed to ancef today/ will reduce dextrose administration. * Will increase basal dose tonight * Add carb ratio and monitor BSG trends PLAN FOR INPATIENT GLYCEMIC CONTROL: * Hold outpatient oral diabetes medications * Basal insulin * Lantus 15 units HS * Bolus insulin * NovoLog per scale ACHS or Q6hrs while NPO * Goal Range: Low 110 mg/dL - High 140 mg/dL * Correction Factor: 30 mg/dL/unit * Nutritional / Prandial insulin per carb ratio of 1 unit per 10 grams CHO consumed
[2022-03-17] MEDS ORDERED: ceFAZolin 2000MG 2,000 MG/15 ML SYR IV ONE (15:00)
[2022-03-17] MEDS ORDERED: ceFAZolin 1000MG 1,000 MG/7.5 ML SYR IV SCH (15:00)
[2022-03-17] MEDS ORDERED: OPTIRAY 320 100ml IV ONE (15:24)
--- NOTE | 2022-03-17 15:46 | CT Scan Report ---
CT chest diagnostic w con CLINICAL HISTORY: septic emboli vs met lung ca. Patient with sepsis and bacteremia. TECHNIQUE: Multidetector row helical CT of the chest was performed with intravenous contrast. Coronal and sagittal reformations were obtained. Automated dose lowering techniques and/or adjustment accord ing to patient size were utilized for this exam. CT DOSE: 1317.39 mGy.cm Comparison: None available at the time of this dictation. FINDINGS: Lungs and pleura: Atelectasis is noted. Multiple nodular densities are seen throughout the lungs, mos t prominent in the upper lobes. There is a 22 mm nodule in the left apex with a focus of cavitation. Additional nodules include a 4 mm nodule in the left apex (series 4 image 49), 9 mm pleural-based nod ule in the right upper lobe (image 97), 8 mm nodule in the right upper lobe (image 102), 6 mm nodule in the right lower lobe (image 177) and 9 mm nodule in the right lung base (image 232). Heart and pericardium: There is cardiomegaly without evidence of pericardial effusion. Vessels: Moderate atherosclerotic changes in the aorta and coronary arteries. Mediastinum and guillermo: Subcentimeter lymph nodes are seen. Chest wall and lower neck: Small thyroid nodules are noted which do not require follow-up by ACR ivanna elkins. Abdomen: Unremarkable. Bones: Degenerative changes in the thoracic spine. IMPRESSION: Multiple nodular densities are seen which may represent septic emboli or metastatic disease cannot be entirely excluded. Continued follow-up to resolution is recommended. ACT 112: Negative or not required by law. Electronically signed by: Cachorro Kennedy M.D. 03/17/2022 3:44 PM
--- NOTE | 2022-03-17 16:40 | Cardiology Progress Note ---
Date of Service March 17, 2022 Assessment & Plan (1) Paroxysmal atrial fibrillation: (2) Cardiomyopathy: (3) Bacteremia: (4) Pancytopenia: (5) Thrombocytopenia: (6) ESRD (end stage renal disease) on dialysis: Plan: ASSESSMENT/PLAN: 1. Paroxysmal atrial fibrillation: Continues to have atrial fibrillation with rapid ventricular response in a paroxysmal fashion. Continue amiodarone intravenously for loading purposes. Continue beta-monica. Unfortunately, she is thrombocytopenic and also had significant bleeding per her report while on Eliquis, requiring 5 units of packed red blood cells. May be a candidate for Watchman device, although would not pursue such in the setting of bacteremia. This can be followed up as an outpatient with her local providers. 2. Cardiomyopathy with history of heart failure with reduced EF: Volume status is managed by Nephrology via hemodialysis and also Lasix. She does not appear to be significantly hypervolemic. Continue metoprolol succinate 50 mg daily (25 mg given today due to hypotension with HD). She is not on ARNI/ACEI, aldosterone receptor antagonist, SGLT 2 inhibitor, due to end-stage renal disease. LV systolic function may be acutely worsened in the setting of AFib with RVR. If no significant improvement, could consider ICD for primary prevention, although would not pursue during this hospital stay due to bacteremia. This should be followed up as an outpatient by her local providers. 3. Pancytopenia: Thrombocytopenia acutely worsened compared to baseline, although slowly improving. May be due to sepsis. Defer to primary hospitalist service. 4. Bacteremia and infected catheter tip: MSSA. Treatment as per primary hospitalist service and Infectious Disease (consult pending). Not pursuing transesophageal ECHO at this time given thrombocytopenia, history of which she refers to as hemorrhaging" from her mouth, and risk/benefit discussion. If her cultures clear, identifying vegetation would not likely exchange trouble shooter other than duration of antibiotic therapy at this point but the risk of KIKE would likely outweigh the benefit. If she does not clear her cultures, could further consider KIKE and weigh the risks/benefits. Hopefully her platelets continue to improve. 5. End-stage renal disease on HD: As per Nephrology. 6. Disposition: Cardiology will continue to follow. 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 Patient care personally discussed with Dr. Garcia of the primary hospitalist service, including concerns of transesophageal echo. Admission and Anticipated Discharge Date Admission Date: March 14, 2022 Subjective Patient feels better today than yesterday. She denies chest pain, shortness of breath, syncope, near-syncope, palpitations, or bleeding. She underwent dialysis today via catheter. Review of systems: As above. She was alone in her hospital room. Physical Exam Physical Exam: Gen.: No acute distress. Alert and oriented. HEENT: Anicteric sclera. Neck: Thick neck. Cardiac: PMI was nonpalpable. No ventricular heave. Regular. Normal S1-S2. No murmurs, rubs, or gallops. Pulmonary: Decreased breath sounds bilaterally, but otherwise clear to auscultation bilaterally without wheezes, rales, or rhonchi. Abdomen: Soft, nontender, nondistended, with normoactive bowel sounds. No bruits noted. Extremities: 2+ right radial pulse. Left upper extremity AV fistula with palpable thrill and audible bruit. 2+ dorsalis pedis pulses bilaterally. No significant pitting edema. No cyanosis. Psychiatric: Affect appears appropriate. Results & Data ([facility]) Vital Signs (Past 12 Hours) Vital Signs Temp Pulse Pulse Resp BP BP Pulse Ox 03/17/22 14:46 138 H 28 H 99/58 L 94 03/17/22 14:30 133 H 15 115/61 67 L 03/17/22 14:16 120 H 27 H 87/47 L 96 03/17/22 14:13 133 H 27 H 111/48 L 95 03/17/22 14:00 132 H 17 96 03/17/22 13:30 152 H 16 89 L 03/17/22 13:00 143 H 30 H 97 03/17/22 12:30 140 H 18 95 03/17/22 12:21 136 H 17 03/17/22 12:00 123 H 100/64 03/17/22 11:46 152 H 29 H 97/71 L 03/17/22 11:31 152 H 29 H 118/80 03/17/22 11:30 138 H 23 118/68 03/17/22 11:16 151 H 23 72/46 L 03/17/22 11:01 134 H 28 H 72/46 L 03/17/22 11:00 135 H 21 80/53 L 03/17/22 10:46 140 H 21 80/53 L 03/17/22 10:32 139 H 18 100/57 L 03/17/22 10:30 132 H 15 79/41 L 03/17/22 10:17 129 H 17 79/41 L 03/17/22 10:16 141 H 10 L 03/17/22 10:04 142 H 18 86/55 L 03/17/22 10:00 138 H 23 03/17/22 09:59 122 H 86/55 L 03/17/22 09:32 136 H 12 100/54 L 03/17/22 09:30 138 H 20 100/54 L 03/17/22 09:02 129 H 18 111/72 03/17/22 09:00 118 H 21 92/55 L 03/17/22 08:45 131 H 20 92/55 L 03/17/22 08:37 117 H 20 89/47 L 03/17/22 08:34 15 03/17/22 08:30 118 H 98/47 L 03/17/22 08:16 88 29 H 146/111 H 03/17/22 08:09 36.9 C 95 H 93 H 32 H 144/72 H 03/17/22 08:01 91 H 12 125/60 03/17/22 08:00 91 H 25 H 03/17/22 07:30 89 16 03/17/22 07:28 36.9 C 93 H 18 133/70 98 03/17/22 07:07 85 26 H 133/70 03/17/22 07:00 85 14 03/17/22 06:30 85 27 H 03/17/22 06:00 112 H 24 03/17/22 05:30 124 H 27 H 92 03/17/22 05:00 127 H 26 H 85 L Laboratory Results Laboratory Results - last 24 hr 03/16/22 03/16/22 03/16/22 18:44 19:51 21:03 WBC RBC Hgb 7.9 L Hct 24.0 L MCV MCH MCHC RDW Std Deviation RDW Coeff of Wiley Plt Count MPV Immature Gran % (Auto) Neut % (Auto) Lymph % (Auto) [place] % (Auto) Eos % (Auto) Baso % (Auto) Neut # (Auto) Lymph # (Auto) [place] # (Auto) Eos # (Auto) Baso # (Auto) Immature Gran # (Auto) Polychromasia Target Cells Sodium Potassium Chloride Carbon Dioxide Anion Gap BUN Creatinine Est Cr Clr Drug Dosing Est GFR ( Amer) Est GFR (Non-Af Amer) BUN/Creatinine Ratio Glucose POC Glucose 275 H 195 H Calcium Phosphorus Magnesium Total Bilirubin AST ALT Alkaline Phosphatase Total Protein Albumin Globulin Albumin/Globulin Ratio 03/17/22 03/17/22 03/17/22 00:04 04:34 05:34 WBC 8.22 RBC 2.34 L Hgb 7.9 L Hct 24.4 L MCV 104.3 H MCH 33.8 MCHC 32.4 RDW Std Deviation 51.9 H RDW Coeff of Wiley 13.7 Plt Count 60 L MPV 12.5 H Immature Gran % (Auto) 0.7 Neut % (Auto) 83.6 Lymph % (Auto) 5.7 [place] % (Auto) 9.7 Eos % (Auto) 0.2 Baso % (Auto) 0.1 Neut # (Auto) 6.86 H Lymph # (Auto) 0.47 L [place] # (Auto) 0.80 H Eos # (Auto) 0.02 Baso # (Auto) 0.01 Immature Gran # (Auto) 0.06 H Polychromasia 1+ Target Cells 1+ Sodium Potassium Chloride Carbon Dioxide Anion Gap BUN Creatinine Est Cr Clr Drug Dosing Est GFR ( Amer) Est GFR (Non-Af Amer) BUN/Creatinine Ratio Glucose POC Glucose 159 H 149 H Calcium Phosphorus Magnesium Total Bilirubin AST ALT Alkaline Phosphatase Total Protein Albumin Globulin Albumin/Globulin Ratio 03/17/22 03/17/22 03/17/22 05:34 07:08 11:29 WBC RBC Hgb Hct MCV MCH MCHC RDW Std Deviation RDW Coeff of Wiley Plt Count MPV Immature Gran % (Auto) Neut % (Auto) Lymph % (Auto) [place] % (Auto) Eos % (Auto) Baso % (Auto) Neut # (Auto) Lymph # (Auto) [place] # (Auto) Eos # (Auto) Baso # (Auto) Immature Gran # (Auto) Polychromasia Target Cells Sodium 132 L Potassium 3.6 Chloride 92 L Carbon Dioxide 22 Anion Gap 18 H BUN 84 H D Creatinine 8.98 H* D Est Cr Clr Drug Dosing 8.7 Est GFR ( Amer) 5.0 Est GFR (Non-Af Amer) 4.3 BUN/Creatinine Ratio 9.4 L Glucose 137 H POC Glucose 145 H 137 H Calcium 8.4 L Phosphorus 5.7 H Magnesium 2.3 Total Bilirubin 0.7 AST 28 ALT 23 Alkaline Phosphatase 85 Total Protein 5.8 L Albumin 2.9 L Globulin 2.9 Albumin/Globulin Ratio 1.0 03/17/22 16:09 WBC RBC Hgb Hct MCV MCH MCHC RDW Std Deviation RDW Coeff of Wiley Plt Count MPV Immature Gran % (Auto) Neut % (Auto) Lymph % (Auto) [place] % (Auto) Eos % (Auto) Baso % (Auto) Neut # (Auto) Lymph # (Auto) [place] # (Auto) Eos # (Auto) Baso # (Auto) Immature Gran # (Auto) Polychromasia Target Cells Sodium Potassium Chloride Carbon Dioxide Anion Gap BUN Creatinine Est Cr Clr Drug Dosing Est GFR ( Amer) Est GFR (Non-Af Amer) BUN/Creatinine Ratio Glucose POC Glucose 256 H Calcium Phosphorus Magnesium Total Bilirubin AST ALT Alkaline Phosphatase Total Protein Albumin Globulin Albumin/Globulin Ratio Diagnostic Findings Telemetry personally reviewed: Atrial fibrillation with rapid ventricular response. She continues to have paroxysmal atrial fibrillation although today has had more AFib than yesterday. CT chest 03/17/2022: Multiple nodular densities which may represent septic emboli or metastatic disease per Radiology. Left upper extremity AV fistula ultrasound: Elevated velocity concerning for > 50% stenosis. Concern for possible thrombus within the fistula in the left proximal forearm per Radiology. CT right shoulder 03/17/2022: No acute osseous pathology. Pulmonary nodules. Medications Administered Current Inpatient Medications Acetaminophen (Acetaminophen 325 Mg Tab) 650 mg PO Q4H PRN PRN Reason: Pain or Fever Stop: 04/13/22 11:00 Last Admin: 03/17/22 04:36 Dose: 650 mg Documented by: Atorvastatin Calcium (Atorvastatin 20 Mg Tab) 20 mg PO QAM TOBY Stop: 04/13/22 11:14 Last Admin: 03/17/22 08:42 Dose: 20 mg Documented by: Calcium Acetate (Calcium Acetate 667 Mg Cap/Tab) 1,334 mg PO TIDM TOBY Stop: 04/13/22 11:59 Last Admin: 03/17/22 16:07 Dose: 1,334 mg Documented by: Dextrose (Dextrose 50% 50 Ml Syringe) 25 - 50 ml IV UD PRN; Protocol PRN Reason: Hypoglycemia Protocol Stop: 04/13/22 11:00 Ezetimibe ([facility]im[facility] 10 Mg Tablet) [facility] Stop: 04/13/22 11:29 Last Admin: 03/17/22 08:42 Dose: 10 mg Documented by: Furosemide (Furosemide 80 Mg Tab) 80 mg PO QAM [facility] Stop: 04/13/22 11:29 Last Admin: 03/14/22 13:08 Dose: Not Given Documented by: Glucagon (Glucagon For Inj 1 Mg Vial) 1 mg SQ UD PRN; Protocol PRN Reason: Hypoglycemia Protocol Stop: 04/13/22 11:00 Glucose (Glucose 10 Tabs/Tube) 4 - 8 tabs PO UD PRN; Protocol PRN Reason: Hypoglycemia Protocol Stop: 04/13/22 11:00 Glucose (Glucose 40% Gel 15 Gm Tube) 15 - 30 gm PO UD PRN; Protocol PRN Reason: Hypoglycemia Protocol Stop: 04/13/22 11:00 Amiodarone HCl/Dextrose (Nexterone / D5w) 360 mg in 200 mls @ 16.667 mls/hr IV .Q12H [facility] Stop: 04/15/22 00:14 Last Admin: 03/17/22 09:56 Dose: 0.5 mg/min, 16.7 mls/hr Documented by: Cefazolin Sodium (Ancef 1000mg) 1,000 mg in 7.5 mls @ 2.5 mls/min IV SuTuThSa@1500 [facility] Stop: 03/31/22 14:59 Cefazolin Sodium (Ancef 2000mg) 2,000 mg in 15 mls @ 3.75 mls/min IV MoWeFr@1500 [facility] Stop: 03/30/22 14:59 Last Admin: 03/16/22 16:21 Dose: 3.75 mls/min Documented by: Insulin Aspart (Insulin Aspart Per Unit) 0 units SC ACHS [facility] Stop: 04/13/22 11:29 Last Admin: 03/17/22 16:33 Dose: 7 units Documented by: Insulin Glargine (Insulin Glargine Solostar 100 Units/Ml 3 Ml Pen) 15 units SC HS [facility] Stop: 04/15/22 16:59 Last Admin: 03/16/22 16:47 Dose: 15 units Documented by: Lidocaine (Lidocaine 5% 1 Patch) 1 patch TD [facility] Stop: 04/13/22 15:44 Last Admin: 03/17/22 08:43 Dose: 1 patch Documented by: Metoprolol Succinate (Metoprolol Succ 50mg Ext Rel Tab) 50 mg PO QAM [facility] Stop: 04/15/22 09:59 Last Admin: 03/17/22 08:51 Dose: Not Given Documented by: Metoprolol Tartrate (Metoprolol Tartrate 1 Mg/Ml Vial) 5 mg IV Q4H PRN PRN Reason: sbp > 185, dbp >95, HR >120 Stop: 04/14/22 18:00 Last Admin: 03/17/22 04:35 Dose: 5 mg Documented by: Miscellaneous (Carbohydrates For Hypoglycemia ) 15 - 30 gm PO UD PRN PRN Reason: Hypoglycemia Protocol Stop: 04/13/22 11:00 Miscellaneous (Remove Lidoderm Patch) 1 ea N/A DAILY@2100 [facility] Stop: 04/13/22 20:59 Last Admin: 03/16/22 21:21 Dose: 1 ea Documented by: Miscellaneous Information (Pharmacy Glycemic Mgmt Consult) 1 ea N/A UD PRN PRN Reason: Consult Stop: 04/15/22 13:46 Ondansetron HCl (Ondansetron Inj 2 Mg/Ml 2 Ml Vial) 4 mg IV Q6H PRN PRN Reason: Nausea Stop: 04/13/22 11:00 Pantoprazole Sodium (Pantoprazole 40 Mg Tab) 40 mg PO BID [facility] Stop: 04/14/22 20:59 Last Admin: 03/17/22 08:42 Dose: 40 mg Documented by: Patiromer (Patiromer Calcium Sorbitex 8.4 Gm Pack) 8.4 gm PO DAILY [facility] Stop: 04/13/22 11:59 Last Admin: 03/16/22 07:32 Dose: 8.4 gm Documented by: Vitamin B Complex/Folic Acid (Nephrocaps) 1 cap PO QAM [facility] Stop: 04/14/22 08:59 Last Admin: 03/17/22 08:42 Dose: 1 cap Documented by: PG Care Time/CCT Total # of Minutes Spent Total Time Spent with Patient: Total time spent is greater than 50% in coordination of care (as documented) at patient's floor/unit and/or counseling patient: Coding Level of Care Code 21198 Subseq Hosp Care Lvl 3 Diagnoses Paroxysmal atrial fibrillation I48.0 Cardiomyopathy I42.9 Bacteremia R78.81 Pancytopenia D61.818 Thrombocytopenia D69.6 ESRD (end stage renal disease) on dialysis N18.6; Z99.2
[2022-03-17] MEDS ORDERED: METOPROLOL SUCC 50MG EXT REL TAB PO STA (16:50)
[2022-03-17] MEDS ORDERED: METOPROLOL SUCC 25MG EXT REL TAB PO STA (16:50)
[2022-03-17] MEDS: INSULIN GLARGINE SOLOSTAR 100 UNITS/ML 3 ML PEN SC SCH (20:13)
[2022-03-18 05:55] LABS: Hematocrit (blood only) 25.3 % (37-47); Hemoglobin 8.1 g/dL (12.0-16.0); Mean Corpuscular Hemoglobin 33.9 pg (25-34); Mean Corpuscular Volume 105.9 fL (80-100); Mean Platelet Volume 12.3 fL (7.4-10.4); Platelet Count 70 K/uL (130-400); RDW Coefficient of Variation 14.5 % (11.5-14.5); RDW Standard Deviation 56.5 fL (36.4-46.3); Red Blood Count 2.39 M/uL (4.2-5.4); White Blood Count 8.76 K/uL (4.8-10.8)
[2022-03-18 06:16] LABS: Basophils # (auto) 0.02 K/uL (0-0.2); Basophils % (auto) 0.2 %; Eosinophils # (auto) 0.02 K/uL (0-0.5); Eosinophils % (auto) 0.2 %; Giant Platelets 1+; Immature Granulocytes # (auto) 0.06 K/uL (0.00-0.02); Immature Granulocytes % (auto) 0.7 %; Lymphocytes # (auto) 0.65 K/uL (1.2-3.4); Lymphocytes % (auto) 7.4 %; Monocytes # (auto) 1.03 K/uL (0.11-0.59); Monocytes % (auto) 11.8 %; Neutrophils # (auto) 6.98 K/uL (1.4-6.5); Neutrophils % (auto) 79.7 %
[2022-03-18 06:26] LABS: BUN Creatinine Ratio 8.9 (10-20); Calcium 8.5 mg/dl (8.5-10.1); Creatinine Clr Calc Pharmacy 10.2 ml/min; Est GFR (African American) 6.2 ml/min; Est GFR (Non-African American) 5.3 ml/min; Potassium 3.9 mmol/L (3.5-5.1)
--- NOTE | 2022-03-18 07:17 | Hospitalist Progress Note ---
Date of Service March 18, 2022 Assessment & Plan (1) Fever: Plan: Fever 2/2 sepsis, gram-positive bacteremia S/p movable of right tunneled IJ on 03/11 for suspected catheter associated bacteremia. Catheter tip growing staph species consistent with blood cultures as noted below Right shoulder CT without joint pathology, but multiple nodules on right upper lung concerning for septic emboli versus metastatic disease. CT-C with contrast ordered, functionally anuric and HD dependent - Surveillance BC 2/4+ from [facility]. Additional surveillance cultures ordered. - Continued on cefazolin 1g IV increased to 2g IV post dialysis sessions - Discussed HD IJ line. Given dialysis dependence, difficulty with access with limited sites, and concern for ability to replace line recommended keeping at this time and continue with abx Left arm fistula ultrasound. Discussed w vascular. 3.6 cm hyperechoic area abutting the vessel without vascular flow which may represent thrombus, fistula without surrounding fluid. ID Consulted. Recommended to discontinue nafcillin. Cefazolin as above. CT for septic emboli v malignancy as noted, has recommended to proceed with KIKE. Ideally would not have temporary line with bacteremia, but needs access and reasonable to leave for now with continued IV abx. Reviewed KIKE recommendations with cardiology. Patient is a high bleeding risk and has had complications of oropharyngeal bleeding in the past requiring multiple units of transfusion. In addition she remains thrombocytopenic and anemic. Should she remain persistently bacteremic KIKE should be revisited, however at this time it is unlikely to change her acute management and she is poor surgical candidate at this time. She has felt better each day clinically. recommend continuing other work-up, treat with cefazolin, and following through the weekend. If she continues to have positive surveillance cultures can use a KIKE next week, however defer at this time as is unlikely to change immediate management and is high risk for complications and bleeding. MSSA 4/4 blood cultures, positive surveillance cultures, continue surveillance cultures QoD COVID/bio fire negative CXR without evidence of pneumonia, some pulmonary edema with volume overload. Procalcitonin elevated on admit and downtrending Patient pancytopenic. Anaplasmosis smear negative, PCR pending sent out 03/14 No transaminitis on admit Right shoulder x-ray consistent with arthritis Surveillance cultures ordered 03/16 -Patient feels greatly clinically improved 03/18. Heart rate improved 7080s at bedside, PT/OT requested. Initially intentionally held due to tachycardia, with her doing well engage as tolerated. (2) Rapid atrial fibrillation: Plan: Improved 03/18 Rapid A. fib with initial SVT with rates in 200s evening of 03/14 Did not improve initially with vagal maneuvers, was associated with hypotension to systolic 70s Patient was given digoxin 250 mcg, amiodarone drip and converted. Did return to A. fib, was reloaded with IV after oral and again rate improved. Heparin deferred due to thrombocytopenia Patient may need watchman procedure for recurrent A. fib with anemia and thrombocytopenia Echo: EF 30-35% with global hypokinesis. No valvular abnormalities. Mild pulmonary hypertension. Similar to 11/18/2021. Mild right ventricular dilation with mildly reduced systolic function, mild left atrial dilation. Anticoagulation for stroke risk reduction when able, unable to do this in the setting of history of significant bleeding requiring transfusion and current thrombocytopenia. Potential candidate for both watchman and ICD, however these are deferred in the setting of active bacteremia. (3) Hypotension: Plan: Somewhat low at baseline, acutely lowered in the setting of A. fib and sepsis Lactate negative Has not needed pressors (4) Hyperkalemia: Plan: -secondary to ESRD improved after kayexolate, IV insulin, calcium gluconate at OSH -Nephrology consult appreciated -Patiromer as noted Electrolyte panel pending (5) ESRD (end stage renal disease) on dialysis: Plan: -HD dependent for 2 years -has TIJ perm cath in right side-just replaced on 03/11, removed 03/15 as noted -received HD 03/14 for hyperkalemia -continue Phos low tid, Nephrocaps -replace Lokelma with Patiromer while here -Cefazolin dose adjusted on dialysis days as above -Fistula with possible clot as noted above -Pt reports she makes up to a small cup of a urine some days, discussed w Nephro and patient is functionally anuric. -Continue dialysis per nephro. Previously on (6) Thrombocytopenia: Plan: -Platelets 52 on admission. Gradually uptrending 03/18 -Likely sepsis induced, anticoagulation deferred due to hx of severe bleeding and plt No clinical bleeding at bedside (7) CHF (congestive heart failure): Plan: HFrEF as per ECHO 11/2021, EF 35% mange fluid status with HD Metoprolol held for hypotension (8) Weakness: Plan: due to sepsis (9) Chronic anemia: Plan: Continue Protonix Continue iron, B12, folate Trend CBC Hemoglobin threshold 7.0 - Uptrending CBC 03/18 (10) HTN (hypertension): Plan: hold home metoprolol due to hypotension (11) Central venous catheter in place: Plan: tunneled IJ removed and cultured, has left AC endograft, and ultrasound-guided IV - Temp IJ as above (12) IDDM (insulin dependent diabetes mellitus): Plan: - Hyperglycemic AM 03/16 - Continue basal/bolus - Pharmacy consulted for DM in ESRD Plan: DVT ppx -SCDs, hold heparin SQ due to thrombocytopenia Downgraded to PCU 03/15 DNR/DNI as per d/w patient Admission and Anticipated Discharge Date Admission Date: March 14, 2022 Subjective Patient sitting up to chair at bedside assessment. She reports she actually feels much better than she did previously, and is in good spirits. Denies fever, chills, sweats and feels she is breathing easier than before. No abdominal pain. No chest pain/chest pressure. She reports she does continue to have some anterior shoulder pain, but this is improved from prior and she is able to actively rotate and move her shoulder with minimal discomfort today. No shaking chills. No pain at her fistula site. Reviewed KIKE recommendations, patient and agreeable to this. Is aware that she will likely in the hospital for at least a week or longer as is pending additional surveillance cultures which will need to be 72 hours negative to consider tunneled catheter placement, and if they persist positive she will need additional work-up. Heart rate is improved today, patient feels like she might be able to work with PT Review of Systems Review of Systems: All systems reviewed & are unremarkable except as noted in Subjective Physical Exam Physical Exam: General: A&Ox3. NAD. Cooperative. Appears fatigued. Right IJ in place HEENT: Atraumatic, normocephalic. Pupils equal, vision and hearing grossly intact. Pulm: Diminished, no wheezes/rales symmetrical chest rise. No increase in work of breathing. No respiratory distress. Cardiac: Irregular, tachycardic soft systolic murmur, no rubs/gallops radial pulses intact and symmetrical. Abdominal: Nontender, nondistended, soft. BS present. Results & Data Results & Data ([facility]) Vital Signs (Past 12 Hours) Vital Signs Temp Pulse Pulse Resp BP BP Pulse Ox 03/18/22 04:00 80 20 124/76 98 03/18/22 03:31 80 21 134/60 96 03/18/22 03:00 79 19 124/55 L 96 03/18/22 02:30 77 21 96/47 L 98 03/18/22 02:00 79 21 93/56 L 99 03/18/22 01:31 82 22 105/52 L 98 03/18/22 00:31 92 H 19 96/55 L 98 03/18/22 00:01 90 27 H 96/71 L 95 03/18/22 00:00 83 26 H 98 03/17/22 23:58 36.5 C 85 122/59 L 98 03/17/22 23:31 94 H 23 122/59 L 98 03/17/22 23:30 96 H 25 H 99 03/17/22 23:00 88 24 90/64 L 98 03/17/22 22:53 78 03/17/22 22:30 138 H 24 92/61 L 97 03/17/22 22:00 137 H 94 03/17/22 21:30 138 H 20 113/63 99 03/17/22 21:00 139 H 24 107/63 98 03/17/22 20:32 121 H 23 87/47 L 98 03/17/22 20:30 136 H 18 98 03/17/22 20:00 98 03/17/22 19:44 36.7 C 03/17/22 19:30 125 H 24 109/67 PG Care Time/CCT Total # of Minutes Spent Total Time Spent with Patient: Total time spent is greater than 50% in coordination of care (as documented) at patient's floor/unit and/or counseling patient: Coding Level of Care Code 33915 Subseq Hosp Care Lvl 3 Diagnoses Fever R50.9 Rapid atrial fibrillation I48.91 Hypotension I95.9 Hyperkalemia E87.5 ESRD (end stage renal disease) on dialysis N18.6; Z99.2 Thrombocytopenia D69.6 CHF (congestive heart failure) I50.9 Weakness R53.1 Chronic anemia D64.9 HTN (hypertension) I10 Central venous catheter in place Z78.9 IDDM (insulin dependent diabetes mellitus)
[2022-03-18] MEDS: INSULIN ASPART PER UNIT SC SCH ×4 (07:49→20:38)
[2022-03-18] MEDS: PANTOprazole 40 MG TAB PO SCH ×2 (08:07→20:38)
[2022-03-18] MEDS: NEPHROCAPS PO SCH (08:08)
[2022-03-18] MEDS: METOPROLOL SUCC 50MG EXT REL TAB PO SCH (08:08)
[2022-03-18] MEDS: EZETIMIBE 10 MG TABLET PO SCH (08:08)
[2022-03-18] MEDS: ATORVASTATIN 20 MG TAB PO SCH (08:08)
[2022-03-18] MEDS: CALCIUM ACETATE 667 MG CAP/TAB PO SCH ×3 (08:08→16:42)
[2022-03-18] MEDS: LIDOCAINE 5% 1 PATCH TD SCH (08:09)
[2022-03-18] MEDS: AMIODARONE / D5W 360 MG/200 ML BAG IV SCH ×2 (08:27→19:46)
[2022-03-18] MEDS ORDERED: INSULIN GLARGINE SOLOSTAR 100 UNITS/ML 3 ML PEN SC ONE (09:00)
--- NOTE | 2022-03-18 13:20 | Pharmacy Report ---
Pharmacy Glycemic Short Note 2 - Date of Service March 18, 2022 - Glycemic Short BSG Results (Last 24 hours): 03/17/22 03/17/22 03/18/22 16:09 20:09 05:18 Glucose 230 H POC Glucose 256 H 214 H 03/18/22 03/18/22 07:03 11:04 Glucose POC Glucose 228 H 243 H OUTPATIENT ANTIDIABETIC REGIMEN: * Lantus 12 units Hs * A1c unreliable in the setting of ESRD/Dialysis ASSESSMENT: 03/18 * BSGs initially improved in the AM, fasting 145 mg/dL, increased throughout the day * Fasting 228 mg/dL this morning, will give small dose this morning and scale for PM * Tightened CF/CR * Add overnight checks 03/17 * BSGs elevated yesterday afternoon, improved today * Will continue current basal/parameters * Continue to monitor 03/16 * Patient admitted with bacteremia from HD catheter, catheter was removed. Now with temporary line for HD. * Nafcillin changed to ancef today/ will reduce dextrose administration. * Will increase basal dose tonight * Add carb ratio and monitor BSG trends PLAN FOR INPATIENT GLYCEMIC CONTROL: * Hold outpatient oral diabetes medications * Basal insulin * Lantus 5 units this morning and 15 HS * Bolus insulin * NovoLog per scale ACHS or Q6hrs while NPO * Goal Range: Low 110 mg/dL - High 140 mg/dL * Correction Factor: 20 mg/dL/unit * Nutritional / Prandial insulin per carb ratio of 1 unit per 8 grams CHO consumed
--- NOTE | 2022-03-18 14:32 | Nephrology Progress Note ---
Date of Service March 18, 2022 Assessment & Plan Admission and Anticipated Discharge Date Admission Date: March 14, 2022 Subjective Subjective S---BP and HR seems better today. . Some SOB. PHYSICAL EXAMINATION: GENERAL: Elderly white female who is morbidly obese. She is awake and alert, able to give a detailed account of her medical problems. She is in mild respiratory distress. NECK: Supple. No JVD. CHEST: Bilateral decreased breath sound. CARDIOVASCULAR: Irregularly irregular, tachycardic. Systolic murmur heard. She does have an AV fistula in the left upper extremity with bruit and thrill. AV fistula is not tender and no erythema. She does have about 2+ edema. ABDOMEN: Soft, nontender, obese. EXTREMITIES: Show 1+ edema. NEUROLOGIC: Moves all 4 extremities. Normal speech. No obvious focal deficit noted. LABORATORY TEST: Blood culture from 03/16 still was positive for Staph aureus. Now multiple lesions in the lung ASSESSMENT AND PLAN: A 62-year-old female with end-stage renal disease, on chronic hemodialysis, but with noncompliance and normally does 1-2 times per week. Now admitted with catheter-related bacteremia with methicillin-sensitive Staphylococcus aureus bacteremia. I have been asked for dialysis management. 1. End-stage renal disease: She did have dialysis earlier today. Her blood pressure runs low, probably because of the underlying bacteremia and sepsis, but even on good days, her blood pressure is on the low side. Next HD will be Monday--will try 4 hrs and take 3 kilo off on 2k bath. No heparin 2. Methicillin-sensitive Staphylococcus aureus bacteremia: This is related with dialysis catheter. Unfortunately, she seems quite prone to bacteremia as she has had multiple episodes like this in the last few months. Infectious disease has been consulted but pending. even the Blood C/s from 03/17 is +ve. Her dialysis days are tricky because she does not always come for dialysis, which makes antibiotics dosing difficult. On the other hand, with an extremely complicated vascular status with multiple failed arteriovenous fistula and multiple episodes of catheter placement, as much as possible I would like to avoid the PICC line.Now on Ancef iv. Results & Data ([facility]) Vital Signs (Past 12 Hours) Vital Signs Temp Pulse Pulse Resp BP BP Pulse Ox 03/18/22 12:01 82 18 139/73 91 03/18/22 12:00 81 21 91 03/18/22 11:55 36.8 C 79 28 H 105/73 93 03/18/22 11:06 80 24 105/73 92 03/18/22 11:00 79 28 H 93 03/18/22 10:00 86 27 H 84 L 03/18/22 09:00 85 28 H 139/83 90 03/18/22 08:49 87 31 H 114/80 91 03/18/22 08:00 36.8 C 86 28 H 131/70 03/18/22 07:37 36.7 C 91 H 27 H 142/66 H 94 03/18/22 07:30 97 H 26 H 127/78 03/18/22 07:05 91 H 28 H 142/66 H 77 L 03/18/22 07:00 80 27 H 127/70 89 L 03/18/22 06:30 81 26 H 113/72 92 03/18/22 06:01 82 28 H 122/58 L 94 03/18/22 06:00 85 24 94 03/18/22 05:30 88 17 126/73 89 L 03/18/22 05:00 83 20 130/53 L 94 03/18/22 04:31 87 27 H 133/68 71 L 03/18/22 04:00 80 20 124/76 98 03/18/22 03:31 80 21 134/60 96 03/18/22 03:00 79 19 124/55 L 96
[2022-03-18] MEDS ORDERED: ceFAZolin 1000MG 1,000 MG/7.5 ML SYR IV PRN (15:00)
[2022-03-18] MEDS: ceFAZolin 1000MG 1,000 MG/7.5 ML SYR IV SCH (15:30)
--- NOTE | 2022-03-18 15:49 | Cardiology Progress Note ---
Date of Service March 18, 2022 Assessment & Plan (1) Paroxysmal atrial fibrillation: (2) Cardiomyopathy: (3) Bacteremia: (4) Pancytopenia: (5) Thrombocytopenia: (6) ESRD (end stage renal disease) on dialysis: Plan: ASSESSMENT/PLAN: 1. Paroxysmal atrial fibrillation: Has been in sinus rhythm since 03/17/2022 at 10:51 p.m.. Convert intravenous amiodarone to oral amiodarone 400 mg twice daily for the next 6 days and then converted to 200 mg twice daily. Continue beta-monica. Unfortunately, she is thrombocytopenic and also had significant bleeding per her report while on Eliquis, requiring 5 units of packed red blood cells. Platelets are improving. If continue to do so, could consider another trial of anticoagulation therapy for stroke risk reduction, if she is agreeable. May be a candidate for Watchman device, although would not pursue such in the setting of bacteremia. This can be followed up as an outpatient with her local providers. 2. Cardiomyopathy with history of heart failure with reduced EF: Volume status is managed by Nephrology via hemodialysis and also Lasix. She does not appear to be significantly hypervolemic. Continue metoprolol succinate 50 mg daily. She is not on ARNI/ACEI, aldosterone receptor antagonist, SGLT 2 inhibitor, due to end-stage renal disease. LV systolic function may be acutely worsened in the setting of AFib with RVR. If no significant improvement, could consider ICD for primary prevention, although would not pursue during this hospital stay due to bacteremia. This should be followed up as an outpatient by her local providers. 3. Pancytopenia: Thrombocytopenia acutely worsened compared to baseline, although slowly improving. May be due to sepsis. Defer to primary hospitalist service. 4. Bacteremia and infected catheter tip: MSSA. Treatment as per primary hospitalist service and Infectious Disease. One of 2 blood cultures are negative from yesterday. Transesophageal echo has not been pursued due to thrombocytopenia however platelets have improved. She ate breakfast today. If blood cultures do not become and remain negative over the weekend, and platelet count remains acceptable, could pursue transesophageal echo next week. From a clinical standpoint, she continues to improve and therefore there is no urgent indication for KIKE at this point. 5. End-stage renal disease on HD: As per Nephrology. 6. Disposition: I will be away from the hospital for the next few days. Please contact the on-call neon sign erector, Dr. Galloway, for any questions or concerns. On discharge, she should follow-up with her local neon sign erector. Patient care communicated with Dr. Garcia of the primary hospitalist service. Admission and Anticipated Discharge Date Admission Date: March 14, 2022 Subjective Patient was seen this morning. She feels even better today. She has maintained sinus rhythm since 11/28/2050 on 03/17/2022 when she converted from AFib. She denies chest pain, shortness of breath, syncope, palpitations. She was out of bed in a chair for the first time this morning when evaluated. Review of systems: As above. She was alone in her hospital room. Physical Exam Physical Exam: Gen.: No acute distress. Alert and oriented. HEENT: Anicteric sclera. Neck: Thick neck. Cardiac: Regular. Normal S1-S2. No murmurs, rubs, or gallops. Pulmonary: Decreased breath sounds bilaterally, but otherwise clear to auscultation bilaterally without wheezes, rales, or rhonchi. Abdomen: Soft, nontender, nondistended, with normoactive bowel sounds. No bruits noted. Extremities: 2+ right radial pulse. Left upper extremity AV fistula with palpable thrill and audible bruit. 2+ dorsalis pedis pulses bilaterally. No significant pitting edema. No cyanosis. Psychiatric: Affect appears appropriate. Results & Data ([facility]) Vital Signs (Past 12 Hours) Vital Signs Temp Pulse Pulse Resp BP BP Pulse Ox 03/18/22 15:15 36.6 C 77 20 95/76 L 95 03/18/22 14:01 77 35 H 84/53 L 90 03/18/22 14:00 77 28 H 89 L 03/18/22 13:01 80 24 162/49 H 94 03/18/22 13:00 78 26 H 93 03/18/22 12:01 82 18 139/73 91 03/18/22 12:00 81 21 91 03/18/22 11:55 36.8 C 79 28 H 105/73 93 03/18/22 11:06 80 24 105/73 92 03/18/22 11:00 79 28 H 93 03/18/22 10:00 86 27 H 84 L 03/18/22 09:00 85 28 H 139/83 90 03/18/22 08:49 87 31 H 114/80 91 03/18/22 08:00 36.8 C 86 28 H 131/70 03/18/22 07:37 36.7 C 91 H 27 H 142/66 H 94 03/18/22 07:30 97 H 26 H 127/78 03/18/22 07:05 91 H 28 H 142/66 H 77 L 03/18/22 07:00 80 27 H 127/70 89 L 03/18/22 06:30 81 26 H 113/72 92 03/18/22 06:01 82 28 H 122/58 L 94 03/18/22 06:00 85 24 94 03/18/22 05:30 88 17 126/73 89 L 03/18/22 05:00 83 20 130/53 L 94 03/18/22 04:31 87 27 H 133/68 71 L 03/18/22 04:00 80 20 124/76 98 Laboratory Results Laboratory Results - last 24 hr 03/17/22 03/17/22 03/18/22 16:09 20:09 05:18 WBC 8.76 RBC 2.39 L Hgb 8.1 L Hct 25.3 L MCV 105.9 H MCH 33.9 MCHC 32.0 RDW Std Deviation 56.5 H RDW Coeff of Wiley 14.5 Plt Count 70 L MPV 12.3 H Immature Gran % (Auto) 0.7 Neut % (Auto) 79.7 Lymph % (Auto) 7.4 Cla[place]orne % (Auto) 11.8 Eos % (Auto) 0.2 Baso % (Auto) 0.2 Neut # (Auto) 6.98 H Lymph # (Auto) 0.65 L [place] # (Auto) 1.03 H Eos # (Auto) 0.02 Baso # (Auto) 0.02 Immature Gran # (Auto) 0.06 H Giant Platelets 1+ Sodium Potassium Chloride Carbon Dioxide Anion Gap BUN Creatinine Est Cr Clr Drug Dosing Est GFR ( Amer) Est GFR (Non-Af Amer) BUN/Creatinine Ratio Glucose POC Glucose 256 H 214 H Calcium 03/18/22 03/18/22 03/18/22 05:18 07:03 11:04 WBC RBC Hgb Hct MCV MCH MCHC RDW Std Deviation RDW Coeff of Wiley Plt Count MPV Immature Gran % (Auto) Neut % (Auto) Lymph % (Auto) [place]orne % (Auto) Eos % (Auto) Baso % (Auto) Neut # (Auto) Lymph # (Auto) [place] # (Auto) Eos # (Auto) Baso # (Auto) Immature Gran # (Auto) Giant Platelets Sodium 133 L Potassium 3.9 Chloride 93 L Carbon Dioxide 27 Anion Gap 13 H BUN 67 H Creatinine 7.50 H* D Est Cr Clr Drug Dosing 10.2 Est GFR ( Amer) 6.2 Est GFR (Non-Af Amer) 5.3 BUN/Creatinine Ratio 8.9 L Glucose 230 H POC Glucose 228 H 243 H Calcium 8.5 Diagnostic Findings Telemetry personally reviewed: AFib converted to sinus rhythm on 03/17/2022 at 10:51 p.m.. Sinus rhythm today. Medications Administered Current Inpatient Medications Acetaminophen (Acetaminophen 325 Mg Tab) 650 mg PO Q4H PRN PRN Reason: Pain or Fever Stop: 04/13/22 11:00 Last Admin: 03/17/22 20:13 Dose: 650 mg Documented by: Atorvastatin Calcium (Atorvastatin 20 Mg Tab) 20 mg PO QAM [facility] Stop: 04/13/22 11:14 Last Admin: 03/18/22 08:08 Dose: 20 mg Documented by: Calcium Acetate (Calcium Acetate 667 Mg Cap/Tab) 1,334 mg PO TIDM [facility] Stop: 04/13/22 11:59 Last Admin: 03/18/22 11:32 Dose: 1,334 mg Documented by: Dextrose (Dextrose 50% 50 Ml Syringe) 25 - 50 ml IV UD PRN; Protocol PRN Reason: Hypoglycemia Protocol Stop: 04/13/22 11:00 Ezetimibe (Ezetimibe 10 Mg Tablet) 10 mg PO QAM [facility] Stop: 04/13/22 11:29 Last Admin: 03/18/22 08:08 Dose: 10 mg Documented by: Epoetin Alan (Epoetin Alan 20,000 Units/Ml Vial) 20,000 units IV ONE [facility] Stop: 03/19/22 16:00 Furosemide (Furosemide 80 Mg Tab) 80 mg PO QAM [facility] Stop: 04/13/22 11:29 Last Admin: 03/14/22 13:08 Dose: Not Given Documented by: Glucagon (Glucagon For Inj 1 Mg Vial) 1 mg SQ UD PRN; Protocol PRN Reason: Hypoglycemia Protocol Stop: 04/13/22 11:00 Glucose (Glucose 10 Tabs/Tube) 4 - 8 tabs PO UD PRN; Protocol PRN Reason: Hypoglycemia Protocol Stop: 04/13/22 11:00 Glucose (Glucose 40% Gel 15 Gm Tube) 15 - 30 gm PO UD PRN; Protocol PRN Reason: Hypoglycemia Protocol Stop: 04/13/22 11:00 Amiodarone HCl/Dextrose (Nexterone / D5w) 360 mg in 200 mls @ 16.667 mls/hr IV .Q12H [facility] Stop: 04/15/22 00:14 Last Admin: 03/18/22 08:27 Dose: 0.5 mg/min, 16.7 mls/hr Documented by: Cefazolin Sodium (Ancef 1000mg) 1,000 mg in 7.5 mls @ 2.5 mls/min IV DAILY@1500 [facility] Stop: 04/01/22 14:59 Cefazolin Sodium (Ancef 1000mg) 1,000 mg in 7.5 mls @ 2.5 mls/min IV DAILY@1500 PRN PRN Reason: DIALYSIS DAYS- TOTAL 2 GM DOSE Stop: 04/01/22 14:59 Sodium Chloride (Nss 1000ml) 1,000 mls @ 0 mls/hr IV .Q0M PRN PRN Reason: For Hemodialysis Use ONLY Stop: 03/19/22 12:59 Insulin Aspart (Insulin Aspart Per Unit) 0 units SC [facility] Stop: 04/13/22 11:29 Last Admin: 03/18/22 11:30 Dose: 11 units Documented by: Insulin Aspart (Insulin Aspart Per Unit) 0 units SC TODAY@0000,0400 [facility] Stop: 03/19/22 04:01 Insulin Glargine (Insulin Glargine Solostar 100 Units/Ml 3 Ml Pen) 0 units SC [facility]; Protocol Stop: 04/15/22 16:59 Lidocaine (Lidocaine 5% 1 Patch) 1 patch TD [facility] Stop: 04/13/22 15:44 Last Admin: 03/18/22 08:09 Dose: 1 patch Documented by: Metoprolol Succinate (Metoprolol Succ 50mg Ext Rel Tab) 50 mg PO [facility] Stop: 04/15/22 09:59 Last Admin: 03/18/22 08:08 Dose: 50 mg Documented by: Metoprolol Tartrate (Metoprolol Tartrate 1 Mg/Ml Vial) 5 mg IV Q4H PRN PRN Reason: sbp > 185, dbp >95, HR >120 Stop: 04/14/22 18:00 Last Admin: 03/17/22 04:35 Dose: 5 mg Documented by: Miscellaneous (Carbohydrates For Hypoglycemia ) 15 - 30 gm PO UD PRN PRN Reason: Hypoglycemia Protocol Stop: 04/13/22 11:00 Miscellaneous (Remove Lidoderm Patch) 1 ea N/A DAILY@2100 [facility] Stop: 04/13/22 20:59 Last Admin: 03/17/22 21:00 Dose: 1 ea Documented by: Miscellaneous (Ancef~Pending Order) 1 ea N/A DAILY@1000 [facility] Stop: 04/17/22 09:59 Last Admin: 03/18/22 10:47 Dose: Not Given Documented by: Miscellaneous (No Heparin In Dialysis) 1 ea N/A ONE ONE Stop: 03/19/22 07:01 Miscellaneous Information (Pharmacy Glycemic Mgmt Consult) 1 ea N/A UD PRN PRN Reason: Consult Stop: 04/15/22 13:46 Ondansetron HCl (Ondansetron Inj 2 Mg/Ml 2 Ml Vial) 4 mg IV Q6H PRN PRN Reason: Nausea Stop: 04/13/22 11:00 Pantoprazole Sodium (Pantoprazole 40 Mg Tab) 40 mg PO BID [facility] Stop: 04/14/22 20:59 Last Admin: 03/18/22 08:07 Dose: 40 mg Documented by: Patiromer (Patiromer Calcium Sorbitex 8.4 Gm Pack) 8.4 gm PO DAILY [facility] Stop: 04/13/22 11:59 Last Admin: 03/16/22 07:32 Dose: 8.4 gm Documented by: Vitamin B Complex/Folic Acid (Nephrocaps) 1 cap PO QAM [facility] Stop: 04/14/22 08:59 Last Admin: 03/18/22 08:08 Dose: 1 cap Documented by: PG Care Time/CCT Total # of Minutes Spent Total Time Spent with Patient: Total time spent is greater than 50% in coordination of care (as documented) at patient's floor/unit and/or counseling patient: Coding Level of Care Code 33285 Subseq Hosp Care Lvl 3 Diagnoses Paroxysmal atrial fibrillation I48.0 Cardiomyopathy I42.9 Bacteremia R78.81 Pancytopenia D61.818 Thrombocytopenia D69.6 ESRD (end stage renal disease) on dialysis N18.6; Z99.2
[2022-03-18] MEDS: AMIODARONE 200 MG TAB PO SCH (17:43)
[2022-03-18] MEDS: INSULIN GLARGINE SOLOSTAR 100 UNITS/ML 3 ML PEN SC SCH (20:38)
[2022-03-19] MEDS: INSULIN ASPART PER UNIT SC SCH ×7 (00:09→20:25)
[2022-03-19 06:52] LABS: BUN Creatinine Ratio 10.1 (10-20); Calcium 8.5 mg/dl (8.5-10.1); Creatinine Clr Calc Pharmacy 8.7 ml/min; Est GFR (African American) 5.1 ml/min; Est GFR (Non-African American) 4.4 ml/min; Potassium 3.6 mmol/L (3.5-5.1)
[2022-03-19 06:56] LABS: Hemoglobin 7.9 g/dL (12.0-16.0); Mean Corpuscular Hemoglobin 33.3 pg (25-34); Mean Corpuscular Hgb Conc 31.6 g/dL (32-36); Mean Corpuscular Volume 105.5 fL (80-100); Mean Platelet Volume 12.6 fL (7.4-10.4); Platelet Count 88 K/uL (130-400); RDW Coefficient of Variation 15.3 % (11.5-14.5); RDW Standard Deviation 58.7 fL (36.4-46.3); Red Blood Count 2.37 M/uL (4.2-5.4); White Blood Count 9.59 K/uL (4.8-10.8)
[2022-03-19 06:57] LABS: Basophils # (auto) 0.02 K/uL (0-0.2); Basophils % (auto) 0.2 %; Eosinophils # (auto) 0.04 K/uL (0-0.5); Eosinophils % (auto) 0.4 %; Giant Platelets 1+; Immature Granulocytes # (auto) 0.13 K/uL (0.00-0.02); Immature Granulocytes % (auto) 1.4 %; Lymphocytes # (auto) 0.95 K/uL (1.2-3.4); Lymphocytes % (auto) 9.9 %; Monocytes # (auto) 0.86 K/uL (0.11-0.59); Neutrophils # (auto) 7.59 K/uL (1.4-6.5); Neutrophils % (auto) 79.1 %
[2022-03-19] MEDS ORDERED: EPOETIN ALFA 20,000 UNITS/ML VIAL IV SCH (07:00)
[2022-03-19] MEDS ORDERED: SODIUM CHLORIDE 0.9% 1000ML 1,000 ML IV PRN (07:00)
[2022-03-19] MEDS: CALCIUM ACETATE 667 MG CAP/TAB PO SCH ×3 (07:38→11:21)
[2022-03-19] MEDS: AMIODARONE 200 MG TAB PO SCH ×2 (07:38→17:19)
[2022-03-19] MEDS: ATORVASTATIN 20 MG TAB PO SCH (07:38)
[2022-03-19] MEDS: EZETIMIBE 10 MG TABLET PO SCH (07:39)
[2022-03-19] MEDS: PANTOprazole 40 MG TAB PO SCH ×2 (07:39→20:26)
[2022-03-19] MEDS: METOPROLOL SUCC 50MG EXT REL TAB PO SCH (07:39)
[2022-03-19] MEDS: NEPHROCAPS PO SCH (07:39)
[2022-03-19] MEDS: LIDOCAINE 5% 1 PATCH TD SCH (07:49)
--- NOTE | 2022-03-19 13:44 | Hospitalist Progress Note ---
Date of Service March 19, 2022 Assessment & Plan (1) Fever: Plan: Fever 2/2 sepsis, gram-positive bacteremia S/p movable of right tunneled IJ on 03/11 for suspected catheter associated bacteremia. Catheter tip growing staph species consistent with blood cultures as noted below Right shoulder CT without joint pathology, but multiple nodules on right upper lung concerning for septic emboli versus metastatic disease. CT-C with contrast ordered, functionally anuric and HD dependent - Surveillance BC 2/4+ from [facility]. Additional surveillance cultures ordered. - Continued on cefazolin 1g IV increased to 2g IV post dialysis sessions - Discussed HD IJ line. Given dialysis dependence, difficulty with access with limited sites, and concern for ability to replace line recommended keeping at this time and continue with abx Left arm fistula ultrasound. Discussed w vascular. 3.6 cm hyperechoic area abutting the vessel without vascular flow which may represent thrombus, fistula without surrounding fluid. ID Consulted. Recommended to discontinue nafcillin. Cefazolin as above. CT for septic emboli v malignancy as noted, has recommended to proceed with KIKE. Ideally would not have temporary line with bacteremia, but needs access and reasonable to leave for now with continued IV abx. Reviewed KIKE recommendations with cardiology. Patient is a high bleeding risk and has had complications of oropharyngeal bleeding in the past requiring multiple units of transfusion. In addition she remains thrombocytopenic and anemic. Should she remain persistently bacteremic KIKE should be revisited, however at this time it is unlikely to change her acute management and she is poor surgical candidate at this time. - Continues to clinically improve. If she continues to have positive surveillance cultures can use a KIKE next week, however defer at this time as is unlikely to change immediate management and is high risk for complications and bleeding. MSSA 4/4 blood cultures, positive surveillance cultures, --> 1/4 +, continue surveillance cultures QoD until negative. Redrawn 03/19 COVID/bio fire negative CXR without evidence of pneumonia, some pulmonary edema with volume overload. Procalcitonin elevated on admit started downtrending Patient pancytopenic. Anaplasmosis smear negative, PCR pending sent out 03/14 No transaminitis on admit Right shoulder x-ray consistent with arthritis Surveillance cultures ordered 03/16 (2) Rapid atrial fibrillation: Plan: Improved 03/18. Has remained with good control, converted to oral Rapid A. fib with initial SVT with rates in 200s evening of 03/14 Did not improve initially with vagal maneuvers, was associated with hypotension to systolic 70s Patient was given digoxin 250 mcg, amiodarone drip and converted. Did return to A. fib, was reloaded with IV after oral and again rate improved. Heparin deferred due to thrombocytopenia Patient may need watchman procedure for recurrent A. fib with anemia and thrombocytopenia Echo: EF 30-35% with global hypokinesis. No valvular abnormalities. Mild pulmonary hypertension. Similar to 11/18/2021. Mild right ventricular dilation with mildly reduced systolic function, mild left atrial dilation. Anticoagulation for stroke risk reduction when able, unable to do this in the setting of history of significant bleeding requiring transfusion and current thrombocytopenia. Potential candidate for both watchman and ICD, however these are deferred in the setting of active bacteremia. (3) Hypotension: Plan: Somewhat low at baseline, acutely lowered in the setting of A. fib and sepsis Lactate negative Has not needed pressors (4) Hyperkalemia: Plan: -secondary to ESRD improved after kayexolate, IV insulin, calcium gluconate at OSH -Nephrology consult appreciated -Patiromer as noted Electrolyte panel pending (5) ESRD (end stage renal disease) on dialysis: Plan: -HD dependent for 2 years -has TIJ perm cath in right side-just replaced on 03/11, removed 03/15 as noted -received HD 03/14 for hyperkalemia -continue Phos low tid, Nephrocaps -replace Lokelma with Patiromer while here -Cefazolin dose adjusted on dialysis days as above -Fistula with possible clot as noted above -Pt reports she makes up to a small cup of a urine some days, discussed w Nephro and patient is functionally anuric. -Continue dialysis per nephro /. Previously on (6) Thrombocytopenia: Plan: -Platelets 52 on admission. Gradually uptrending 03/18 -Likely sepsis induced, anticoagulation deferred due to hx of severe bleeding and plt No clinical bleeding at bedside (7) CHF (congestive heart failure): Plan: HFrEF as per ECHO 11/2021, EF 35% mange fluid status with HD Metoprolol held for hypotension (8) Weakness: Plan: due to sepsis (9) Chronic anemia: Plan: Continue Protonix Continue iron, B12, folate Trend CBC Hemoglobin threshold 7.0 -Plt 88, if hgb remains stable ?QD --> BID heparin DVT ppx. Pt with hx of clinically significant bleeding limiting anticoagulation for afib. (10) HTN (hypertension): Plan: hold home metoprolol due to hypotension (11) Central venous catheter in place: Plan: tunneled IJ removed and cultured, has left AC endograft, and ultrasound-guided IV - Temp IJ as above (12) IDDM (insulin dependent diabetes mellitus): Plan: - Hyperglycemic AM 03/16 - Continue basal/bolus - Pharmacy consulted for DM in ESRD Plan: DVT ppx -SCDs, hold heparin SQ due to thrombocytopenia Downgraded to PCU 03/15 DNR/DNI as per d/w patient Admission and Anticipated Discharge Date Admission Date: March 14, 2022 Subjective Seen at the bedside this morning. She reports she continues to feel better every day. Is tolerating dialysis today, is actually doing much better with stable blood pressures compared to her prior treatments. She denies chest pain, chest pressure, lightheadedness, dizziness, nausea, vomiting. No ongoing bleeding. She has not had fevers or chills overnight. Is hopeful that her cultures drawn today will remain negative, is aware will be several days at [facility] t before the neck steps can be taken. No other questions or concerns at bedside Review of Systems Review of Systems: All systems reviewed & are unremarkable except as noted in Subjective Physical Exam Physical Exam: General: A&Ox3. NAD. Cooperative. Appears fatigued. Right IJ in place HEENT: Atraumatic, normocephalic. Pupils equal, vision and hearing grossly intact. Pulm: Diminished, grossly CTAB no wheezes/rales symmetrical chest rise. No increase in work of breathing. No respiratory distress. Cardiac: Irregular, tachycardic soft systolic murmur, no rubs/gallops radial pulses intact and symmetrical. Abdominal: Nontender, nondistended, soft. BS present. Results & Data Results & Data ([facility]) Vital Signs (Past 12 Hours) Vital Signs Temp Pulse Pulse Pulse Resp BP BP 03/19/22 13:00 79 127/58 L 03/19/22 12:40 74 109/55 L 03/19/22 12:20 78 103/62 03/19/22 12:00 74 107/59 L 03/19/22 11:40 76 106/56 L 03/19/22 11:20 73 110/62 03/19/22 11:00 73 129/64 03/19/22 10:40 72 97/57 L 03/19/22 10:20 71 99/63 L 03/19/22 10:00 74 106/41 L 03/19/22 09:40 74 93/59 L 03/19/22 09:20 73 125/52 L 03/19/22 09:04 36.8 C 73 03/19/22 08:00 74 03/19/22 07:13 36.7 C 74 20 121/70 03/19/22 03:00 37.0 C 75 20 135/69 Pulse Ox 03/19/22 13:00 03/19/22 12:40 03/19/22 12:20 03/19/22 12:00 03/19/22 11:40 03/19/22 11:20 03/19/22 11:00 03/19/22 10:40 03/19/22 10:20 03/19/22 10:00 03/19/22 09:40 03/19/22 09:20 03/19/22 09:04 03/19/22 08:00 03/19/22 07:13 94 03/19/22 03:00 95 PG Care Time/CCT Total # of Minutes Spent Total Time Spent with Patient: Total time spent is greater than 50% in coordination of care (as documented) at patient's floor/unit and/or counseling patient: Coding Level of Care Code 57976 Subseq Hosp Care Lvl 3 Diagnoses Fever R50.9 Rapid atrial fibrillation I48.91 Hypotension I95.9 Hyperkalemia E87.5 ESRD (end stage renal disease) on dialysis N18.6; Z99.2 Thrombocytopenia D69.6 CHF (congestive heart failure) I50.9 Weakness R53.1 Chronic anemia D64.9 HTN (hypertension) I10 Central venous catheter in place Z78.9 IDDM (insulin dependent diabetes mellitus)
[2022-03-19] MEDS: ACETAMINOPHEN 325 MG TAB PO PRN ×2 (13:54→20:26)
[2022-03-19] MEDS: ceFAZolin 1000MG 1,000 MG/7.5 ML SYR IV SCH (15:05)
[2022-03-19] MEDS: INSULIN GLARGINE SOLOSTAR 100 UNITS/ML 3 ML PEN SC SCH (20:25)
--- NOTE | 2022-03-19 21:17 | Nephrology Progress Note ---
Date of Service March 19, 2022 Assessment & Plan (1) ESRD (end stage renal disease) on dialysis: Plan: ASSESSMENT AND PLAN: A 62-year-old female with end-stage renal disease, on chronic hemodialysis, but with noncompliance and normally does 1-2 times per week. Now admitted with catheter-related bacteremia with methicillin-sensitive Staphylococcus aureus bacteremia. 1. End-stage renal disease: She did have dialysis earlier today. Her blood pressure runs low, probably because of the underlying bacteremia and sepsis, but even on good days, her blood pressure is on the low side. HD Today--will try 4 hrs and take 3 kilo off on 2k bath. No heparin (2) Bacteremia: Plan: 2. Methicillin-sensitive Staphylococcus aureus bacteremia: This is related with dialysis catheter. Unfortunately, she seems quite prone to bacteremia as she has had multiple episodes like this in the last few months. Infectious disease has been consulted . Her dialysis days are tricky because she does not always come for dialysis, which makes antibiotics dosing difficult. On the other hand, with an extremely complicated vascular status with multiple failed arteriovenous fistula and multiple episodes of catheter placement, as much as possible I would like to avoid the PICC line.Abx as per primary team Admission and Anticipated Discharge Date Admission Date: March 14, 2022 Subjective Seen and examined on Dialysis. Not in distress Review of Systems Review of Systems: Comfortable no distress. 1+ Pedal edema Physical Exam Physical Exam: PHYSICAL EXAMINATION: GENERAL: Elderly white female who is morbidly obese. She is awake and alert, able to give a detailed account of her medical problems. She is in mild respiratory distress. NECK: Supple. No JVD. CHEST: Bilateral decreased breath sound. CARDIOVASCULAR: Irregularly irregular, tachycardic. Systolic murmur heard. She does have an AV fistula in the left upper extremity with bruit and thrill. AV fistula is not tender and no erythema. She does have about 2+ edema. ABDOMEN: Soft, nontender, obese. EXTREMITIES: Show 1+ edema. NEUROLOGIC: Moves all 4 extremities. Normal speech. No obvious focal deficit noted. Results & Data ([facility]) Vital Signs (Past 12 Hours) Vital Signs Temp Pulse Pulse Pulse Resp BP BP 03/19/22 19:46 36.8 C 135 H 20 120/56 L 03/19/22 16:00 83 03/19/22 15:21 36.4 C L 73 19 101/53 L 03/19/22 13:30 36.6 C 76 128/65 03/19/22 13:00 79 127/58 L 03/19/22 12:40 74 109/55 L 03/19/22 12:20 78 103/62 03/19/22 12:00 74 107/59 L 03/19/22 11:40 76 106/56 L 03/19/22 11:20 73 110/62 03/19/22 11:00 73 129/64 03/19/22 10:40 72 97/57 L 03/19/22 10:20 71 99/63 L 03/19/22 10:00 74 106/41 L 03/19/22 09:40 74 93/59 L 03/19/22 09:20 73 125/52 L Pulse Ox 03/19/22 19:46 92 03/19/22 16:00 03/19/22 15:21 97 03/19/22 13:30 03/19/22 13:00 03/19/22 12:40 03/19/22 12:20 03/19/22 12:00 03/19/22 11:40 03/19/22 11:20 03/19/22 11:00 03/19/22 10:40 03/19/22 10:20 03/19/22 10:00 03/19/22 09:40 03/19/22 09:20 Laboratory Results 03/19/22 05:24 03/19/22 05:24
--- NOTE | 2022-03-20 07:12 | Hospitalist Progress Note ---
Date of Service March 20, 2022 Assessment & Plan (1) Fever: Plan: Fever 2/2 sepsis, gram-positive bacteremia S/p movable of right tunneled IJ on 03/11 for suspected catheter associated bacteremia. Catheter tip growing staph species consistent with blood cultures as noted below Right shoulder CT without joint pathology - Continued on cefazolin 1g IV increased to 2g IV post dialysis sessions - HD IJ temp line in place. Given dialysis dependence, difficulty with access with limited sites, and concern for ability to replace line recommended keeping at this time and continue with abx US L Arm Fistula: Discussed w vascular. 3.6 cm hyperechoic area abutting the vessel without vascular flow which may represent thrombus, fistula without surrounding fluid. ID Consulted. During admit. Recommended to discontinue nafcillin --> Cefazolin. CT for septic emboli v malignancy as noted, has recommended to proceed with KIKE. Ideally would not have temporary line with bacteremia, but needs access and reasonable to leave for now with continued IV abx. Patient is a high bleeding risk and has had complications of oropharyngeal bleeding in the past requiring multiple units of transfusion. In addition she remains thrombocytopenic and anemic. Should she remain persistently bacteremic KIKE should be revisited, however at this time it is unlikely to change her acute management and she is poor surgical candidate at this time. Continues to clinically improve. If she continues to have positive surveillance cultures can use a KIKE week of 03/21, however defer at this time as is unlikely to change immediate management and is high risk for complications and bleeding. MSSA 4/4 blood cultures, positive surveillance cultures, --> 1/4 +, continue surveillance cultures QoD until negative. Redrawn 03/19 so far remain negative. If remain negative for 72 hours can remove temporary and pursue tunneled placement at that time. COVID/bio fire negative CXR without evidence of pneumonia, some pulmonary edema with volume overload. Procalcitonin elevated on admit started downtrending Patient pancytopenic. Anaplasmosis smear negative, PCR negative No transaminitis on admit Right shoulder x-ray consistent with arthritis Surveillance cultures ordered 03/16 (2) Rapid atrial fibrillation: Plan: Improved 03/18. A. fib RVR this morning, downtrending after morning metoprolol dose. +1 lopressor dose, continued on Amio. Potassium 3.3, caution repletion on dialysis diet. w. afib ideally K 4/Mg 2. Will + 30meq oral and continue to hold patiromer Rapid A. fib with initial SVT with rates in 200s evening of 03/14 Did not improve initially with vagal maneuvers, was associated with hypotension to systolic 70s Patient was given digoxin 250 mcg, amiodarone drip and converted. Did return to A. fib, was reloaded with IV after oral and again rate improved. Heparin deferred due to thrombocytopenia Patient may need watchman procedure for recurrent A. fib with anemia and thrombocytopenia Echo: EF 30-35% with global hypokinesis. No valvular abnormalities. Mild pulmonary hypertension. Similar to 11/18/2021. Mild right ventricular dilation with mildly reduced systolic function, mild left atrial dilation. Anticoagulation for stroke risk reduction preferred, unable to do this in the setting of history of significant bleeding requiring transfusion and current thrombocytopenia. Potential candidate for both watchman and ICD, however these are deferred in the setting of active bacteremia. (3) Hypotension: Plan: Was somewhat low at baseline, acutely lowered in the setting of A. fib and sepsis. Improved Lactate negative Has not needed pressors (4) Hyperkalemia: Plan: -secondary to ESRD improved after kayexolate, IV insulin, calcium gluconate at OSH -Nephrology consult appreciated -Patiromer as noted. Patient has actually been low normal, but your MAR has been held (5) ESRD (end stage renal disease) on dialysis: Plan: -HD dependent for 2 years -has TIJ perm cath in right side-just replaced on 03/11, removed 03/15 as noted -received HD 03/14 for hyperkalemia -continue Phos low tid, Nephrocaps -replace Lokelma with Patiromer while here -Cefazolin dose adjusted on dialysis days as above -Fistula with possible clot as noted above -Pt reports she makes up to a small cup of a urine some days, discussed w Nephro and patient is functionally anuric. -Continue dialysis per nephro. Anticipate next dialysis 03/21 with goal 4 hours 3 kg off (6) Thrombocytopenia: Plan: -Platelets 52 on admission. Gradually uptrending -Likely sepsis induced, anticoagulation deferred due to hx of severe bleeding and plt No clinical bleeding at bedside (7) CHF (congestive heart failure): Plan: HFrEF as per ECHO 11/2021, EF 35% mange fluid status with HD Metoprolol held for hypotension (8) Weakness: Plan: due to sepsis (9) Chronic anemia: Plan: Continue Protonix Continue iron, B12, folate Trend CBC Hemoglobin threshold 7.0 -Plt improved from 30s to 80s, patient with history of vera clinically significant bleeds and pharmacal prophylaxis for DVT and stroke revision of A. fib deferred operative/benefit discussion (10) HTN (hypertension): Plan: Continue MTP, hold for hypotension (11) Central venous catheter in place: Plan: tunneled IJ removed and cultured, has left AC endograft, and ultrasound-guided IV - Temp IJ as above (12) IDDM (insulin dependent diabetes mellitus): Plan: - Continue basal/bolus - Pharmacy consulted for DM in ESRD Plan: DVT ppx -SCDs, hold heparin SQ due to thrombocytopenia Downgraded to PCU 03/15 DNR/DNI as per d/w patient Admission and Anticipated Discharge Date Admission Date: March 14, 2022 Subjective Seen the bedside. Patient continues to feel very well, reports she feels a little bit better each day. Is back in A. fib with rates 1001 30s this morning, gradually downtrending after receiving metoprolol. No lightheadedness or dizziness. BP generally doing better. No nausea, vomiting, diarrhea, constipation. Does feel like she has more energy and would like a squeezing exercise ball from physical therapy when they come around. Has not had fever/chills/sweats overnight Review of Systems Review of Systems: All systems reviewed & are unremarkable except as noted in Subjective Physical Exam Physical Exam: General: A&Ox3. NAD. Cooperative. Fact with more energy. Right IJ in place HEENT: Atraumatic, normocephalic. Pupils equal, vision and hearing grossly intact. Pulm: Diminished, grossly CTAB no wheezes/rales symmetrical chest rise. No increase in work of breathing. No respiratory distress. Cardiac: Irregular, tachycardic soft systolic murmur, no rubs/gallops radial pulses intact and symmetrical. Abdominal: Nontender, nondistended, soft. BS present. Extremities: Pitting edema in the feet and lower extremities bilaterally Results & Data Results & Data ([facility]) Vital Signs (Past 12 Hours) Vital Signs Temp Pulse Pulse Resp BP Pulse Ox 03/20/22 03:12 36.5 C 82 20 138/71 97 03/20/22 00:00 109 H 03/19/22 23:21 109/57 L 03/19/22 23:17 36.8 C 136 H 20 85/63 L 93 03/19/22 19:46 36.8 C 135 H 20 120/56 L 92 PG Care Time/CCT Total # of Minutes Spent Total Time Spent with Patient: Total time spent is greater than 50% in coordination of care (as documented) at patient's floor/unit and/or counseling patient: Coding Level of Care Code 84047 Subseq Hosp Care Lvl 3 Diagnoses Fever R50.9 Rapid atrial fibrillation I48.91 Hypotension I95.9 Hyperkalemia E87.5 ESRD (end stage renal disease) on dialysis N18.6; Z99.2 Thrombocytopenia D69.6 CHF (congestive heart failure) I50.9 Weakness R53.1 Chronic anemia D64.9 HTN (hypertension) I10 Central venous catheter in place Z78.9 IDDM (insulin dependent diabetes mellitus)
[2022-03-20 07:14] LABS: BUN Creatinine Ratio 9.5 (10-20); Est GFR (African American) 8.8 ml/min; Est GFR (Non-African American) 7.6 ml/min; Potassium 3.3 mmol/L (3.5-5.1)
[2022-03-20 07:31] LABS: Basophils # (auto) 0.01 K/uL (0-0.2); Basophils % (auto) 0.1 %; Eosinophils # (auto) 0.03 K/uL (0-0.5); Eosinophils % (auto) 0.4 %; Giant Platelets 1+; Hematocrit (blood only) 25.4 % (37-47); Hemoglobin 8.1 g/dL (12.0-16.0); Immature Granulocytes # (auto) 0.18 K/uL (0.00-0.02); Immature Granulocytes % (auto) 2.2 %; Lymphocytes # (auto) 0.93 K/uL (1.2-3.4); Lymphocytes % (auto) 11.4 %; Macrocytosis Present; Mean Corpuscular Hemoglobin 35.2 pg (25-34); Mean Corpuscular Hgb Conc 31.9 g/dL (32-36); Mean Corpuscular Volume 110.4 fL (80-100); Mean Platelet Volume 12.7 fL (7.4-10.4); Monocytes # (auto) 0.53 K/uL (0.11-0.59); Monocytes % (auto) 6.5 %; Neutrophils # (auto) 6.51 K/uL (1.4-6.5); Neutrophils % (auto) 79.4 %; Platelet Count 89 K/uL (130-400); RDW Coefficient of Variation 15.7 % (11.5-14.5); RDW Standard Deviation 61.9 fL (36.4-46.3); White Blood Count 8.19 K/uL (4.8-10.8)
[2022-03-20] MEDS: INSULIN ASPART PER UNIT SC SCH ×4 (08:37→20:25)
[2022-03-20] MEDS: ACETAMINOPHEN 325 MG TAB PO PRN (08:38)
[2022-03-20] MEDS: ATORVASTATIN 20 MG TAB PO SCH (08:39)
[2022-03-20] MEDS: CALCIUM ACETATE 667 MG CAP/TAB PO SCH ×3 (08:39→17:01)
[2022-03-20] MEDS: AMIODARONE 200 MG TAB PO SCH ×2 (08:39→17:01)
[2022-03-20] MEDS: EZETIMIBE 10 MG TABLET PO SCH (08:40)
[2022-03-20] MEDS: LIDOCAINE 5% 1 PATCH TD SCH (08:40)
[2022-03-20] MEDS: NEPHROCAPS PO SCH (08:41)
[2022-03-20] MEDS: METOPROLOL SUCC 50MG EXT REL TAB PO SCH (08:41)
[2022-03-20] MEDS: PANTOprazole 40 MG TAB PO SCH ×2 (08:41→20:24)
--- NOTE | 2022-03-20 09:58 | Nephrology Progress Note ---
Date of Service March 20, 2022 Assessment & Plan (1) ESRD (end stage renal disease) on dialysis: Plan: ASSESSMENT AND PLAN: A 62-year-old female with end-stage renal disease, on chronic hemodialysis, but with noncompliance and normally does 1-2 times per week. Now admitted with catheter-related bacteremia with methicillin-sensitive Staphylococcus aureus bacteremia. 1. End-stage renal disease:Last dialysed on 03/19 with @ 3 lit UF. Her blood pressure runs low, probably because of the underlying bacteremia and sepsis, but even on good days, her blood pressure is on the low side. Next HD tmrw -again try 4 hrs and take 3 kilo off on 2k bath. No heparin (2) Bacteremia: Plan: 2. Methicillin-sensitive Staphylococcus aureus bacteremia: This is related with dialysis catheter. Unfortunately, she seems quite prone to bacteremia as she has had multiple episodes like this in the last few months. Her dialysis days are tricky because she does not always come for dialysis, which makes antibiotics dosing difficult. On the other hand, with an extremely complicated vascular status with multiple failed arteriovenous fistula and multiple episodes of catheter placement, as much as possible I would like to avoid the PICC line.Abx as per primary team Admission and Anticipated Discharge Date Admission Date: March 14, 2022 Subjective Comfortbale, Sitting out on chair. Not in distress Review of Systems Review of Systems: Comfortable no distress. 1+ Pedal edema Physical Exam Physical Exam: PHYSICAL EXAMINATION: GENERAL: Elderly white female who is morbidly obese. She is awake and alert,not in distress. NECK: Supple. No JVD. CHEST: Bilateral decreased breath sound. CARDIOVASCULAR: Irregularly irregular, tachycardic. Systolic murmur heard. She does have an AV fistula in the left upper extremity with bruit and thrill. AV fistula is not tender and no erythema. She does have about 1+ edema. ABDOMEN: Soft, nontender, obese. EXTREMITIES: Show 1+ edema. NEUROLOGIC: Moves all 4 extremities. Normal speech. No obvious focal deficit noted. Results & Data ([facility]) Vital Signs (Past 12 Hours) Vital Signs Temp Pulse Pulse Resp BP Pulse Ox 03/20/22 07:10 36.7 C 83 20 116/58 L 94 03/20/22 03:12 36.5 C 82 20 138/71 97 03/20/22 00:00 109 H 03/19/22 23:21 109/57 L 03/19/22 23:17 36.8 C 136 H 20 85/63 L 93 Laboratory Results 03/20/22 05:29 03/20/22 05:29
[2022-03-20] MEDS: METOPROLOL TARTRATE 1 MG/ML VIAL IV PRN (10:11)
[2022-03-20] MEDS ORDERED: POTASSIUM CHLORIDE 10 MEQ TABCR PO STA (12:10)
[2022-03-20] MEDS: ceFAZolin 1000MG 1,000 MG/7.5 ML SYR IV SCH (15:06)
[2022-03-20] MEDS: INSULIN GLARGINE SOLOSTAR 100 UNITS/ML 3 ML PEN SC SCH (20:24)
[2022-03-21] MEDS: ACETAMINOPHEN 325 MG TAB PO PRN (01:27)
[2022-03-21 06:13] LABS: Hematocrit (blood only) 24.4 % (37-47); Hemoglobin 7.5 g/dL (12.0-16.0); Mean Corpuscular Hemoglobin 34.4 pg (25-34); Mean Corpuscular Hgb Conc 30.7 g/dL (32-36); Mean Corpuscular Volume 111.9 fL (80-100); Mean Platelet Volume 12.4 fL (7.4-10.4); Nucleated RBC # (auto) 0.03 K/uL (0-0); Nucleated RBC % (auto) 0.4 %; Platelet Count 81 K/uL (130-400); RDW Coefficient of Variation 15.4 % (11.5-14.5); RDW Standard Deviation 63.4 fL (36.4-46.3); Red Blood Count 2.18 M/uL (4.2-5.4); White Blood Count 8.23 K/uL (4.8-10.8)
[2022-03-21 06:39] LABS: Basophils # (auto) 0.02 K/uL (0-0.2); Basophils % (auto) 0.2 %; Eosinophils # (auto) 0.05 K/uL (0-0.5); Eosinophils % (auto) 0.6 %; Hypochromasia Present; Immature Granulocytes # (auto) 0.17 K/uL (0.00-0.02); Immature Granulocytes % (auto) 2.1 %; Lymphocytes # (auto) 0.77 K/uL (1.2-3.4); Lymphocytes % (auto) 9.4 %; Monocytes # (auto) 0.45 K/uL (0.11-0.59); Monocytes % (auto) 5.5 %; Neutrophils # (auto) 6.77 K/uL (1.4-6.5); Neutrophils % (auto) 82.2 %; Polychromasia 1+; Stomatocytes 1+
[2022-03-21 06:53] LABS: Calcium 8.2 mg/dl (8.5-10.1); Creatinine Clr Calc Pharmacy 9.6 ml/min; Est GFR (African American) 5.6 ml/min; Est GFR (Non-African American) 4.8 ml/min; Potassium 3.8 mmol/L (3.5-5.1)
[2022-03-21] MEDS ORDERED: SODIUM CHLORIDE 0.9% 1000ML 1,000 ML IV PRN ×2 (07:00→09:03)
[2022-03-21] MEDS: INSULIN ASPART PER UNIT SC SCH ×4 (07:57→21:41)
[2022-03-21] MEDS: PANTOprazole 40 MG TAB PO SCH ×2 (07:58→21:42)
[2022-03-21] MEDS: ATORVASTATIN 20 MG TAB PO SCH (07:59)
[2022-03-21] MEDS: NEPHROCAPS PO SCH (07:59)
[2022-03-21] MEDS: EZETIMIBE 10 MG TABLET PO SCH (07:59)
[2022-03-21] MEDS: AMIODARONE 200 MG TAB PO SCH ×2 (08:00→17:16)
[2022-03-21] MEDS: CALCIUM ACETATE 667 MG CAP/TAB PO SCH ×3 (08:00→17:16)
[2022-03-21] MEDS: METOPROLOL SUCC 50MG EXT REL TAB PO SCH (08:00)
[2022-03-21] MEDS: LIDOCAINE 5% 1 PATCH TD SCH (08:01)
[2022-03-21] MEDS: LOPERAMIDE HCL 2 MG CAP PO PRN ×2 (09:36→21:42)
--- NOTE | 2022-03-21 11:41 | Pharmacy Report ---
Pharmacy Glycemic Short Note 2 - Date of Service March 21, 2022 - Glycemic Short BSG Results (Last 24 hours): 03/20/22 03/20/22 03/21/22 16:24 20:04 05:31 Glucose 140 H POC Glucose 143 H 189 H 03/21/22 07:05 Glucose POC Glucose 143 H OUTPATIENT ANTIDIABETIC REGIMEN: * Lantus 12 units SQ HS * Patient's HbA1c = 5.9% today. * However, this result is likely somewhat unreliable in ESRD patients d/t interactions between the A1c analyzing technique and high levels of urea in ESRD, reduced RBC life span, iron deficiency anemia, and EPO administration. HbA1c > 7.5% in ESRD patient may overestimate the extent of hyperglycemia in ESRD patients. ASSESSMENT: 03/21: * Zoya's BSGs have been relatively well controlled over the last 48 hours: [phone] mg/dL. * Received 37 units of insulin on Monday and 41 units on Monday. * Minimal adjustments to insulin regimen over the weekend (CR tightened from 8 to 7 on Monday morning). * No changes in stressors. * Fasting BSG at 143 mg/dL this AM - controlled. She will have HD today. * No adjustments to insulin regimen required today. PLAN FOR INPATIENT GLYCEMIC CONTROL: * Basal insulin * Lantus 15/20 units (20 units for BSG 200 mg/dL or more) SQ HS * Bolus insulin * NovoLog per scale ACHS or Q6hrs while NPO * Goal Range: Low 110 mg/dL - High 140 mg/dL * Correction Factor: 20 mg/dL/unit * Nutritional / Prandial insulin per carb ratio of 1 unit per 7 grams CHO consumed
--- NOTE | 2022-03-21 13:50 | Hospitalist Progress Note ---
Date of Service March 21, 2022 Assessment & Plan (1) Fever: Plan: Fever 2/2 sepsis, gram-positive bacteremia S/p movable of right tunneled IJ on 03/11 for suspected catheter associated bacteremia. Catheter tip growing staph species consistent with blood cultures as noted below Right shoulder CT without joint pathology - Continued on cefazolin 1g IV increased to 2g IV post dialysis sessions - HD IJ temp line in place. Given dialysis dependence, difficulty with access with limited sites, and concern for ability to replace line recommended keeping at this time and continue with abx US L Arm Fistula: Discussed w vascular. 3.6 cm hyperechoic area abutting the vessel without vascular flow which may represent thrombus, fistula without surrounding fluid. ID Consulted. During admit. Recommended to discontinue nafcillin --> Cefazolin. CT for septic emboli v malignancy as noted, has recommended to proceed with KIKE. Ideally would not have temporary line with bacteremia, but needs access and reasonable to leave for now with continued IV abx. Patient is a high bleeding risk and has had complications of oropharyngeal bleeding in the past requiring multiple units of transfusion. In addition she remains thrombocytopenic and anemic. Should she remain persistently bacteremic KIKE should be revisited, however at this time it is unlikely to change her acute management and she is poor surgical candidate at this time. Continues to clinically improve. If she continues to have positive surveillance cultures can use a KIKE week of 03/21, however defer at this time as is unlikely to change immediate management and is high risk for complications and bleeding. MSSA 4/4 blood cultures, positive surveillance cultures, --> 1/4 +, continue surveillance cultures QoD until negative. Redrawn 03/19 so far remain negative. Pending tunnelled line placement once final cultures negative. COVID/bio fire negative CXR without evidence of pneumonia, some pulmonary edema with volume overload. Procalcitonin elevated on admit started downtrending Patient pancytopenic. Anaplasmosis smear negative, PCR negative No transaminitis on admit Right shoulder x-ray consistent with arthritis Surveillance cultures ordered 03/16 (2) Rapid atrial fibrillation: Plan: Improved with Amio. Generally worse following dialysis and with low K, cautious repletion with dialysis and renal diet. K low 2/2 loose bowels with abx (c diff neg), improved with loperamide PRN. Probiotic deferred 2/2 indwelling central catheter Rapid A. fib with initial SVT with rates in 200s evening of 03/14 Did not improve initially with vagal maneuvers, was associated with hypotension to systolic 70s Patient was given digoxin 250 mcg, amiodarone drip and converted. Did return to A. fib, was reloaded with IV after oral and again rate improved. Heparin deferred due to thrombocytopenia Patient may need watchman procedure for recurrent A. fib with anemia and thrombocytopenia Echo: EF 30-35% with global hypokinesis. No valvular abnormalities. Mild pulmonary hypertension. Similar to 11/18/2021. Mild right ventricular dilation with mildly reduced systolic function, mild left atrial dilation. Anticoagulation for stroke risk reduction preferred, unable to do this in the setting of history of significant bleeding requiring transfusion and current thrombocytopenia. Potential candidate for both watchman and ICD, however these are deferred in the setting of active bacteremia. (3) Hypotension: Plan: Was somewhat low at baseline, acutely lowered in the setting of A. fib and sepsis. Improved Lactate negative Has not needed pressors (4) Hyperkalemia: Plan: -secondary to ESRD improved after kayexolate, IV insulin, calcium gluconate at OSH -Nephrology consult appreciated -Patiromer as noted. Patient has actually been low normal, and has been held (5) ESRD (end stage renal disease) on dialysis: Plan: -HD dependent for 2 years -has TIJ perm cath in right side-just replaced on 03/11, removed 03/15 as noted -received HD 03/14 for hyperkalemia -continue Phos low tid, Nephrocaps -replace Lokelma with Patiromer while here -Cefazolin dose adjusted on dialysis days as above -Fistula with possible clot as noted above -Pt reports she makes up to a small cup of a urine some days, discussed w Nephro and patient is functionally anuric. -Continue dialysis per nephro. Anticipate next dialysis today with goal 4 hours 3 kg off (6) Thrombocytopenia: Plan: -Platelets 52 on admission. Gradually uptrending -Likely sepsis induced, anticoagulation deferred due to hx of severe bleeding and plt No clinical bleeding at bedside (7) CHF (congestive heart failure): Plan: HFrEF as per ECHO 11/2021, EF 35% mange fluid status with HD Metoprolol held for hypotension (8) Weakness: Plan: due to sepsis (9) Chronic anemia: Plan: Continue Protonix Continue iron, B12, folate Trend CBC Hemoglobin threshold 7.0 -Plt improved from 30s to 80s, patient with history of vera clinically significant bleeds and pharmacal prophylaxis for DVT and stroke revision of A. fib deferred operative/benefit discussion (10) HTN (hypertension): Plan: Continue MTP, hold for hypotension (11) Central venous catheter in place: Plan: tunneled IJ removed and cultured, has left AC endograft, and ultrasound-guided IV - Temp IJ as above (12) IDDM (insulin dependent diabetes mellitus): Plan: - Continue basal/bolus - Pharmacy consulted for DM in ESRD Plan: DVT ppx -SCDs, hold heparin SQ due to thrombocytopenia, history of multiple recurrent bleeds, and hemoglobin less than 8 Downgraded to PCU 03/15 DNR/DNI as per d/w patient Admission and Anticipated Discharge Date Admission Date: March 14, 2022 Subjective Sitting up in chair at bedside. Reports she continues to feel more energetic and improved day by day. No fevers, chills, sweats, chest pain, chest pressure. He is in A. fib, but with good rate control. Initially was told she would have dialysis Monday, updates she may receive dialysis today. No muscle cramps, muscle aches. Almost completely anuric at baseline. Hopeful that her cultures will remain negative, no additional questions or concerns at time of evaluation. Does not have pain at her IJ site. No lightheadedness or dizziness. Review of Systems Review of Systems: All systems reviewed & are unremarkable except as noted in Subjective Physical Exam Physical Exam: General: A&Ox3. NAD. Cooperative. Fact with more energy. Right IJ in place HEENT: Atraumatic, normocephalic. Pupils equal, vision and hearing grossly intact. Pulm: Diminished, overall CTAB no wheezes/rales symmetrical chest rise. No increase in work of breathing. No respiratory distress. Cardiac: Irregular, tachycardic soft systolic murmur, no rubs/gallops radial pulses intact and symmetrical. Abdominal: Nontender, nondistended, soft. BS present. Extremities: Pitting edema in the feet and lower extremities bilaterally Results & Data Results & Data ([facility]) Vital Signs (Past 12 Hours) Vital Signs Temp Pulse Pulse Pulse Pulse Resp BP 03/21/22 13:30 64 91/53 L 03/21/22 13:00 66 103/47 L 03/21/22 12:30 63 97/65 L 03/21/22 12:00 68 105/53 L 03/21/22 11:45 68 104/49 L 03/21/22 11:30 68 99/53 L 03/21/22 11:15 65 99/48 L 03/21/22 11:00 68 100/55 L 03/21/22 10:46 69 120/49 L 03/21/22 10:32 37 C 69 03/21/22 08:00 68 03/21/22 07:24 36.9 C 73 20 03/21/22 03:00 36.8 C 72 15 BP Pulse Ox 03/21/22 13:30 03/21/22 13:00 03/21/22 12:30 03/21/22 12:00 03/21/22 11:45 03/21/22 11:30 03/21/22 11:15 03/21/22 11:00 03/21/22 10:46 03/21/22 10:32 03/21/22 08:00 03/21/22 07:24 128/60 98 03/21/22 03:00 122/58 L 94 PG Care Time/CCT Total # of Minutes Spent Total Time Spent with Patient: Total time spent is greater than 50% in coordination of care (as documented) at patient's floor/unit and/or counseling patient: Coding Level of Care Code 47806 Subseq Hosp Care Lvl 2 Diagnoses Fever R50.9 Rapid atrial fibrillation I48.91 Hypotension I95.9 Hyperkalemia E87.5 ESRD (end stage renal disease) on dialysis N18.6; Z99.2 Thrombocytopenia D69.6 CHF (congestive heart failure) I50.9 Weakness R53.1 Chronic anemia D64.9 HTN (hypertension) I10 Central venous catheter in place Z78.9 IDDM (insulin dependent diabetes mellitus)
[2022-03-21] MEDS: ceFAZolin 1000MG 1,000 MG/7.5 ML SYR IV SCH (14:54)
[2022-03-21 19:11] LABS: BUN Creatinine Ratio 7.1 (10-20); Est GFR (African American) 9.6 ml/min; Est GFR (Non-African American) 8.3 ml/min; Potassium 3.9 mmol/L (3.5-5.1)
[2022-03-21] MEDS: INSULIN GLARGINE SOLOSTAR 100 UNITS/ML 3 ML PEN SC SCH (21:40)
--- NOTE | 2022-03-21 22:05 | Nephrology Progress Note ---
Date of Service March 21, 2022 Assessment & Plan (1) ESRD (end stage renal disease) on dialysis: Plan: ASSESSMENT AND PLAN: A 62-year-old female with end-stage renal disease, on chronic hemodialysis, but with noncompliance and normally does 1-2 times per week. Now admitted with catheter-related bacteremia with methicillin-sensitive Staphylococcus aureus bacteremia. End-stage renal disease:Last dialysed on 03/19 with @ 3 lit UF. Her blood pressure runs low, probably because of the underlying bacteremia and sepsis, but even on good days, her blood pressure is on the low side. -HD for today w/ goal 2.5- 3 kilo off on 2k bath. -next HD for tomorrow or day after potentially (2) Bacteremia: Plan: Methicillin-sensitive Staphylococcus aureus bacteremia: This is related with dialysis catheter. Unfortunately, she seems quite prone to bacteremia as she has had multiple episodes like this in the last few months. Her dialysis days are tricky because she does not always come for dialysis, which makes antibiotics dosing difficult. On the other hand, with an extremely complicated vascular status with multiple failed arteriovenous fistula and multiple episodes of catheter placement, as much as possible would like to avoid the PICC line. -Abx as per primary team -will plan for TDC replacement tomorrow or day after will make her NPO MN and contact vascular in am Admission and Anticipated Discharge Date Admission Date: March 14, 2022 Subjective tolerated HD today and feels weakness, fatigue much improved; no shazia sob but does remain on 02nc (not on this at baseline); 03/19 bld cxs neg x 48 hr Review of Systems Review of Systems: All systems reviewed & are unremarkable except as noted in Subjective Physical Exam Constitutional: well developed, well nourished, + morbidly obese and cooperative; no acute distress Eyes: EOM intact bilaterally ENMT: Ears: no external ear abnormality Nose: no external nose abnormality Mouth: + dry oral mucous membranes Neck: no nuchal rigidity Respiratory: normal respiratory effort Auscultation: + diminished lung sounds Cardiovascular: Rate/Rhythm: regular rate and regular rhythm Extremities: + edema (trace) Gastrointestinal (Abdomen): Inspection/Auscultation: normal bowel sounds P ercussion/Palpation: abdomen soft; abdomen nontender Musculoskeletal: Extremities: strength 5/5 throughout Skin: no rashes, warm and dry Neurologic: mc, fluent speech, no tremor Psychiatric: Orientation: oriented x 3 Results & Data ([facility]) Vital Signs (Past 12 Hours) Vital Signs Temp Pulse Pulse Pulse Resp BP BP 03/21/22 19:15 37.2 C 75 18 137/55 L 03/21/22 16:00 66 03/21/22 15:06 36.9 C 76 18 122/59 L 03/21/22 14:19 37 C 76 71 100/45 L 03/21/22 14:00 68 107/57 L 03/21/22 13:30 64 91/53 L 03/21/22 13:00 66 103/47 L 03/21/22 12:30 63 97/65 L 03/21/22 12:00 68 105/53 L 03/21/22 11:45 68 104/49 L 03/21/22 11:30 68 99/53 L 03/21/22 11:15 65 99/48 L 03/21/22 11:00 68 100/55 L 03/21/22 10:46 69 120/49 L 03/21/22 10:32 37 C 69 Pulse Ox 03/21/22 19:15 96 03/21/22 16:00 03/21/22 15:06 97 03/21/22 14:19 03/21/22 14:00 03/21/22 13:30 03/21/22 13:00 03/21/22 12:30 03/21/22 12:00 03/21/22 11:45 03/21/22 11:30 03/21/22 11:15 03/21/22 11:00 03/21/22 10:46 03/21/22 10:32 Laboratory Results 03/21/22 05:31 03/21/22 18:21
--- NOTE | 2022-03-22 07:21 | Hospitalist Progress Note ---
Date of Service March 22, 2022 Assessment & Plan (1) Fever: Plan: Fever 2/2 sepsis, gram-positive bacteremia S/p movable of right tunneled IJ on 03/11 for suspected catheter associated bacteremia. Catheter tip growing staph species consistent with blood cultures as noted below Right shoulder CT without joint pathology - Continued on cefazolin 1g IV increased to 2g IV post dialysis sessions - HD IJ temp line in place. Given dialysis dependence, difficulty with access with limited sites, and concern for ability to replace line recommended keeping at this time and continue with abx US L Arm Fistula: Discussed w vascular. 3.6 cm hyperechoic area abutting the vessel without vascular flow which may represent thrombus, fistula without surrounding fluid. ID Consulted. During admit. Recommended to discontinue nafcillin --> Cefazolin. CT for septic emboli v malignancy as noted, has recommended to proceed with KIKE. Ideally would not have temporary line with bacteremia, but needs access and reasonable to leave for now with continued IV abx. Patient is a high bleeding risk and has had complications of oropharyngeal bleeding in the past requiring multiple units of transfusion. In addition she remains thrombocytopenic and anemic. Should she remain persistently bacteremic KIKE should be revisited, however at this time it is unlikely to change her acute management and she is poor surgical candidate at this time. Continues to clinically improve. If she continues to have positive surveillance cultures can use a KIKE week of 03/21, however defer at this time as is unlikely to change immediate management and is high risk for complications and bleeding. MSSA 4/4 blood cultures, positive surveillance cultures, --> 1/4 +, --> repeat remain negative COVID/bio fire negative CXR without evidence of pneumonia, some pulmonary edema with volume overload. Procalcitonin elevated on admit started downtrending Patient pancytopenic. Anaplasmosis smear negative, PCR negative No transaminitis on admit Right shoulder x-ray consistent with arthritis Surveillance cultures remain negative at 72 hours, continuous read not batch read. Discussed with ID. Given afebrile and negative cultures may defer KIKE at this time. Can proceed with dialysis tunneled catheter placement. Recommend extension of antibiotics to 6 weeks. Anticipate tunneled placement today (2) Rapid atrial fibrillation: Plan: Improved with Amio. Generally worse following dialysis and with low K, cautious repletion with dialysis and renal diet. K low 2/2 loose bowels with abx (c diff neg), improved with loperamide PRN. Probiotic deferred / indwelling central catheter. K wnl 03/22 Rapid A. fib with initial SVT with rates in 200s evening of 03/14 Did not improve initially with vagal maneuvers, was associated with hypotension to systolic 70s Patient was given digoxin 250 mcg, amiodarone drip and converted. Did return to A. fib, was reloaded with IV after oral and again rate improved. Heparin deferred due to thrombocytopenia Patient may need watchman procedure for recurrent A. fib with anemia and thrombocytopenia Echo: EF 30-35% with global hypokinesis. No valvular abnormalities. Mild pulmonary hypertension. Similar to 11/18/2021. Mild right ventricular dilation with mildly reduced systolic function, mild left atrial dilation. Anticoagulation for stroke risk reduction preferred, unable to do this in the setting of history of significant bleeding requiring transfusion and current thrombocytopenia. Potential candidate for both watchman and ICD, however these are deferred in the setting of active bacteremia. (3) Hypotension: Plan: Was somewhat low at baseline, acutely lowered in the setting of A. fib and sepsis. Improved Lactate negative Has not needed pressors (4) Hyperkalemia: Plan: -secondary to ESRD improved after kayexolate, IV insulin, calcium gluconate at OSH -Nephrology consult appreciated -Patiromer as noted. Patient has actually been low normal, and has been held - If upper-normal high restart patiromer (5) ESRD (end stage renal disease) on dialysis: Plan: -HD dependent for 2 years -received HD 03/14 for hyperkalemia -continue Phos low tid, Nephrocaps -replace Lokelma with Patiromer while here -Cefazolin dose adjusted on dialysis days as above -Fistula with possible clot as noted above -Pt reports she makes up to a small cup of a urine some days, discussed w Nephro and patient is functionally anuric, no concerns for contrast use. -Continue dialysis per nephro. - Does not receive heparin w dialysis (6) Thrombocytopenia: Plan: -Platelets 52 on admission, worsened w/ bacteremia. Now ~80. -Likely sepsis induced, anticoagulation/heparin deferred due to hx of severe bleeding and thrombocytopenia No clinical bleeding at bedside (7) CHF (congestive heart failure): Plan: HFrEF as per ECHO 11/2021, EF 35% mange fluid status with HD Metoprolol held for hypotension (8) Weakness: Plan: due to sepsis (9) Chronic anemia: Plan: Continue Protonix Continue iron, B12, folate Trend CBC Hemoglobin threshold 7.0 (10) HTN (hypertension): Plan: Continue MTP, hold for hypotension (11) Central venous catheter in place: Plan: tunneled IJ removed and cultured, has left AC endograft, and ultrasound-guided IV - Temp IJ as above (12) IDDM (insulin dependent diabetes mellitus): Plan: - Continue basal/bolus - Pharmacy consulted for DM in ESRD Plan: DVT ppx -SCDs, hold heparin SQ due to thrombocytopenia w/ history of multiple recurrent bleeds, and hemoglobin less than 8 Downgraded to PCU 03/15 DNR/DNI as per d/w patient Admission and Anticipated Discharge Date Admission Date: March 14, 2022 Subjective Seen at the bedside. Blood cultures remain negative. Reviewed case with ID. Given negative cultures and has remained afebrile, may defer KIKE at this time. Can place tunneled catheter today, and antibiotics will be extended for 6-week total course. Patient is hopeful that she will continue to well, notes that she continues to feel improved this morning. Denies chest pain, chest pressure, palpitations, fever, chills, sweats, abdominal pain overnight. Did discuss risk/benefits of resuming heparin given that her platelets have improved, notes her bleeding in the past and even her dialysis is done w/p dialysis. Review of Systems Review of Systems: All systems reviewed & are unremarkable except as noted in Subjective Physical Exam Physical Exam: General: A&Ox3. NAD. Cooperative. Right IJ in place HEENT: Atraumatic, normocephalic. Pupils equal, vision and hearing grossly intact. Pulm: CTAB no wheezes/rales symmetrical chest rise. No increase in work of breathing. No respiratory distress. Cardiac: Irregular, normal rate. soft systolic murmur, no rubs/gallops radial pulses intact and symmetrical. Abdominal: Nontender, nondistended, soft. BS present. Extremities: Pitting edema in the feet and lower extremities bilaterally Results & Data Results & Data ([facility]) Vital Signs (Past 12 Hours) Vital Signs Temp Pulse Pulse Resp BP Pulse Ox 03/22/22 03:00 37.1 C 72 16 144/62 H 96 03/22/22 00:00 78 03/21/22 23:02 37.2 C 72 18 113/62 96 PG Care Time/CCT Total # of Minutes Spent Total Time Spent with Patient: Total time spent is greater than 50% in coordination of care (as documented) at patient's floor/unit and/or counseling patient: Coding Level of Care Code 54573 Subseq Hosp Care Lvl 3 Diagnoses Fever R50.9 Rapid atrial fibrillation I48.91 Hypotension I95.9 Hyperkalemia E87.5 ESRD (end stage renal disease) on dialysis N18.6; Z99.2 Thrombocytopenia D69.6 CHF (congestive heart failure) I50.9 Weakness R53.1 Chronic anemia D64.9 HTN (hypertension) I10 Central venous catheter in place Z78.9 IDDM (insulin dependent diabetes mellitus)
[2022-03-22] MEDS: INSULIN ASPART PER UNIT SC SCH ×4 (08:12→22:03)
[2022-03-22] MEDS: LIDOCAINE 5% 1 PATCH TD SCH (08:13)
[2022-03-22 08:16] LABS: Hematocrit (blood only) 25.1 % (37-47); Hemoglobin 7.7 g/dL (12.0-16.0); Mean Corpuscular Hemoglobin 34.5 pg (25-34); Mean Corpuscular Hgb Conc 30.7 g/dL (32-36); Mean Corpuscular Volume 112.6 fL (80-100); Mean Platelet Volume 12.3 fL (7.4-10.4); Nucleated RBC # (auto) 0.02 K/uL (0-0); Nucleated RBC % (auto) 0.3 %; Platelet Count 79 K/uL (130-400); RDW Coefficient of Variation 15.3 % (11.5-14.5); RDW Standard Deviation 62.4 fL (36.4-46.3); Red Blood Count 2.23 M/uL (4.2-5.4); White Blood Count 9.03 K/uL (4.8-10.8)
[2022-03-22 08:35] LABS: BUN Creatinine Ratio 7.6 (10-20); Calcium 8.1 mg/dl (8.5-10.1); Creatinine Clr Calc Pharmacy 12.4 ml/min; Est GFR (African American) 7.6 ml/min; Est GFR (Non-African American) 6.6 ml/min; Potassium 3.9 mmol/L (3.5-5.1)
[2022-03-22 08:50] LABS: Basophils # (auto) 0.02 K/uL (0-0.2); Basophils % (auto) 0.2 %; Eosinophils # (auto) 0.07 K/uL (0-0.5); Eosinophils % (auto) 0.8 %; Immature Granulocytes # (auto) 0.14 K/uL (0.00-0.02); Immature Granulocytes % (auto) 1.6 %; Lymphocytes # (auto) 0.69 K/uL (1.2-3.4); Lymphocytes % (auto) 7.6 %; Macrocytosis Present; Monocytes # (auto) 0.47 K/uL (0.11-0.59); Monocytes % (auto) 5.2 %; Neutrophils # (auto) 7.64 K/uL (1.4-6.5); Neutrophils % (auto) 84.6 %; Polychromasia 1+
[2022-03-22] MEDS: AMIODARONE 200 MG TAB PO SCH ×2 (09:32→16:54)
[2022-03-22] MEDS: ATORVASTATIN 20 MG TAB PO SCH (09:32)
[2022-03-22] MEDS: CALCIUM ACETATE 667 MG CAP/TAB PO SCH ×3 (09:32→16:53)
[2022-03-22] MEDS: EZETIMIBE 10 MG TABLET PO SCH (09:33)
[2022-03-22] MEDS: METOPROLOL SUCC 50MG EXT REL TAB PO SCH (09:33)
[2022-03-22] MEDS: NEPHROCAPS PO SCH (09:33)
[2022-03-22] MEDS: PANTOprazole 40 MG TAB PO SCH ×2 (09:33→22:06)
--- NOTE | 2022-03-22 10:41 | Pharmacy Report ---
Pharmacy Glycemic Short Note 2 - Date of Service March 22, 2022 - Glycemic Short BSG Results (Last 24 hours): 03/21/22 03/21/22 03/21/22 14:33 16:32 18:21 Glucose 210 H POC Glucose 126 H 196 H 03/21/22 03/22/22 03/22/22 20:33 07:16 07:44 Glucose 131 H POC Glucose 200 H 152 H OUTPATIENT ANTIDIABETIC REGIMEN: * Lantus 12 units SQ HS * Patient's HbA1c = 5.9% today. * However, this result is likely somewhat unreliable in ESRD patients d/t interactions between the A1c analyzing technique and high levels of urea in ESRD, reduced RBC life span, iron deficiency anemia, and EPO administration. HbA1c > 7.5% in ESRD patient may overestimate the extent of hyperglycemia in ESRD patients. ASSESSMENT: 03/22: * Patient BSGs yesterday were: [phone] mg/dL. Received 38 units of insulin yesterday (20 units basal + 18 units bolus). * Lunchtime insulin given late secondary to dialysis then instructed RN to cover only carbs at dinner. Likely cause for bedtime hyperglycemia. * Fasting BSG was 152 mg/dL this AM - acceptable. Patient now NPO for possible placement of tunneled HD cath today. * No changes to insulin regimen today but monitor closely given NPO status. 03/21: * Zoya's BSGs have been relatively well controlled over the last 48 hours: [phone] mg/dL. * Received 37 units of insulin on Monday and 41 units on Monday. * Minimal adjustments to insulin regimen over the weekend (CR tightened from 8 to 7 on Monday morning). * No changes in stressors. * Fasting BSG at 143 mg/dL this AM - controlled. She will have HD today. * No adjustments to insulin regimen required today. PLAN FOR INPATIENT GLYCEMIC CONTROL: * Basal insulin * Lantus 15/20 units (20 units for BSG 200 mg/dL or more) SQ HS * Bolus insulin * NovoLog per scale ACHS or Q6hrs while NPO * Goal Range: Low 110 mg/dL - High 140 mg/dL * Correction Factor: 20 mg/dL/unit * Nutritional / Prandial insulin per carb ratio of 1 unit per 7 grams CHO co nsumed
--- NOTE | 2022-03-22 12:33 | History & Physical Bridge Note ---
Date of Service March 22, 2022 History & Physical Bridge Note Patient for an insertion of a permcath today. I have discussed the risks options and benefits of the procedure with the patient. The patient understands the risks options and benefits and agrees to the procedure. I have examined the patient, reviewed the History & Physical and in the interval since the performance of the History & Physical I have noted the following changes of clinical significance: no changes noted
[2022-03-22] MEDS ORDERED: MIDAZOLAM HCL 1 MG/ML 2ML VIAL ONE (12:49)
[2022-03-22] MEDS ORDERED: fentaNYL citrate 100 MCG/2 ML VIAL ONE ×2 (12:49→13:51)
[2022-03-22] MEDS ORDERED: HEPARIN SOD (PORCINE) 5,000 UNITS/ML VIAL ONE ×2 (12:49→13:09)
[2022-03-22] MEDS ORDERED: LIDOCAINE 1% LOCAL 20 ML VIAL ONE (12:50)
[2022-03-22] MEDS ORDERED: ceFAZolin SPECIAL PROCEDURE STOCK 1 GM ADDVIAL IV ONE (13:03)
--- NOTE | 2022-03-22 14:09 | Post Operative Brief Note ---
Immediate Post Op Note v1 Date of Surgery March 22, 2022 Pre & Post Diagnosis Operation Date: 03/18/22 09:50 <No data on this case meets the specified criteria> Operation Date: 03/22/22 10:10 Pre-Op Diagnosis: End Stage Renal Disease Post-Op Diagnosis: End Stage Renal Disease I identified the patient and participated in the time-out.: Yes Procedure Operation Date: 03/18/22 09:50 <No data on this case meets the specified criteria> Operation Date: 03/22/22 10:10 Actual Procedures p Perm Catheter Placement Left Jugular Approach, Ultrasound Localization to Left Jugular Vein, Fluoroscopy for positioing, Removal of Temporary Dialysis Catheter, Moderate Sedation 1320- 1410(Left) - Kalpesh Arevalo MD Surgeon Kalpesh Arevalo MD Exercise Instructor MD Fawn Estimated Blood Loss 5 Findings Consistent with Post-Op Diagnosis Specimens tip sent for culture Anesthesia Type RN Sedation Complications none Disposition Accompanied Patient To Recovery: No Disposition: Recovery Room
--- NOTE | 2022-03-22 14:10 | Pre Anesthesia Assessment ---
Date of Service March 22, 2022 Pre Sedation Assessment Vital Signs Temp Pulse Pulse Pulse Resp BP Pulse Ox 03/22/22 14:05 79 18 111/49 L 96 03/22/22 14:00 77 18 111/43 L 100 03/22/22 13:55 78 18 112/43 L 99 03/22/22 13:50 80 18 97/55 L 100 03/22/22 13:45 76 18 109/50 L 99 03/22/22 13:40 78 18 108/46 L 99 03/22/22 13:35 77 18 111/59 L 99 03/22/22 13:30 97 H 18 109/47 L 100 03/22/22 13:25 78 18 110/53 L 100 03/22/22 13:20 82 18 131/68 99 03/22/22 13:14 80 18 121/62 99 03/22/22 12:53 37.4 C 77 18 107/53 L 99 03/22/22 11:48 36.4 C L 81 18 142/71 H 96 03/22/22 03:00 37.1 C 72 16 144/62 H 96 03/22/22 00:00 78 03/21/22 23:02 37.2 C 72 18 113/62 96 03/21/22 19:15 37.2 C 75 18 137/55 L 96 03/21/22 16:00 66 03/21/22 15:06 36.9 C 76 18 122/59 L 97 03/21/22 14:19 37 C 76 71 100/45 L Cardiovascular RRR, no murmur, no edema Respiratory normal respiratory effort, lungs clear to auscultation Pre-Sedation Airway Assessment Smoking Status: Former smoker Hx Sleep Apnea: No Short, Thick Neck: Yes Thyromental Distance: < 3.5 Finger Breadths Oral Cavity: + WNL Mallampati Class: III ASA: ASA3 NPO Status Date of Last Intake of Fluids: 03/22/22 Time of Last Intake of Fluids: 08:00 Last Oral Intake of Fluids Comment: sip with med Date of Last Intake of Solid Food: 03/21/22 Time of Last Intake of Solid Foods: 18:00 Procedure Planning Contraindications for Sedation: none Current Medications Reviewed: Yes Notes The planned sedation has been discussed with the patient. Informed Consent was obtained. I have identified the patient, determined the appropriateness of sedation and have assessed the patient immediately prior to the procedure. All medicine(s) and interventions are by my order.
--- NOTE | 2022-03-22 14:10 | Post Anesthesia Assessment ---
Date of Service March 22, 2022 Post Sedation Assessment Vital Signs Temp Pulse Pulse Pulse Resp BP Pulse Ox 03/22/22 14:05 79 18 111/49 L 96 03/22/22 14:00 77 18 111/43 L 100 03/22/22 13:55 78 18 112/43 L 99 03/22/22 13:50 80 18 97/55 L 100 03/22/22 13:45 76 18 109/50 L 99 03/22/22 13:40 78 18 108/46 L 99 03/22/22 13:35 77 18 111/59 L 99 03/22/22 13:30 97 H 18 109/47 L 100 03/22/22 13:25 78 18 110/53 L 100 03/22/22 13:20 82 18 131/68 99 03/22/22 13:14 80 18 121/62 99 03/22/22 12:53 37.4 C 77 18 107/53 L 99 03/22/22 11:48 36.4 C L 81 18 142/71 H 96 03/22/22 03:00 37.1 C 72 16 144/62 H 96 03/22/22 00:00 78 03/21/22 23:02 37.2 C 72 18 113/62 96 03/21/22 19:15 37.2 C 75 18 137/55 L 96 03/21/22 16:00 66 03/21/22 15:06 36.9 C 76 18 122/59 L 97 03/21/22 14:19 37 C 76 71 100/45 L Recovery Score Activity: Moves 4 extremities Respiration: Deep Breath/Cough Circulation: +/-20% PreAnes Value Consciousness: Fully Awake Oxygen Saturation: O2 needed for >90% Post Anesthesia Score: 9 Discharge Sedation Level of Care: Fast Track Phase II Post Sedation Plan On clinical assessment, the patient appears to have tolerated the sedation without complications. Patient is recovering as anticipated. Patient will continue to be monitored by nursing and may be discharged when sedation discharge criteria are met per below protocol. Upon Completions of procedure up to 15 minutes continue every 5 minute vital signs and the P.A.R. score; then discharge to a Phase I or Fast Track to Phase II per the following guidelines: * Discharge Patient to appropriate Phase II area if PAR is 8 or greater or return to pre- procedure baseline. The post - procedure orders will be as directed. * If PAR score is less than 8 or not return to pre-procedure baseline then patient will follow Phase I monitoring till PAR is reached for Phase II. The Phase I may be done in procedure room or may call to secure a Phase I area. * If naloxone or flumazenil are used for reversal, hold in Phase I for continued monitoring from when last reversal dose was given for a minimum of 60 minutes or longer pending the nurse and/or physician discretion of patient condition before discharge to Phase II. Please call the Sedation Physician to re-evaluate and complete post-note for discharge to Phase II area. Do NOT discharge from procedure sedation or Phase 1 until post- sedation evaluation note is complete by procedure /sedation MD Sedation Discharge Instructions to be given to the patient at discharge to home.
--- NOTE | 2022-03-22 14:12 | Procedure Note ---
Angiogram Post Procedure Fluoroscopy Time (minutes): 0.2 Radiation (mGy): 4.09 Post Operative Report Pre & Post Diagnosis Operation Date: 03/18/22 09:50 <No data on this case meets the specified criteria> Operation Date: 03/22/22 10:10 Pre-Op Diagnosis: End Stage Renal Disease Post-Op Diagnosis: End Stage Renal Disease I identified the patient and participated in the time-out.: Yes Procedure Operation Date: 03/18/22 09:50 <No data on this case meets the specified criteria> Operation Date: 03/22/22 10:10 Actual Procedures p Perm Catheter Placement Left Jugular Approach, Ultrasound Localization to Left Jugular Vein, Fluoroscopy for positioing, Removal of Temporary Dialysis Catheter, Moderate Sedation 1320- 1410(Left) - Kalpesh Arevalo MD Surgeon Kalpesh Arevalo MD Physical Medicine Teacher MD Fawn Estimated Blood Loss 5 Findings Consistent with Post-Op Diagnosis see operative report Specimens none Anesthesia Type MAC Complications none immediate Disposition Accompanied Patient To Recovery: No Disposition: Surgical ICU Indications This is a 62 year old female with end stage renal disease on hemodialysis. She had an infected right perm cath which we removed a few days ago. Her cultures have been negative for 48h. She presents for new perm cath placement. Description of Procedure Patient was taken to the angio suite and placed in the supine position. The left side of the neck and chest wall were prepped and draped in a sterile manner. A team timeout was performed. Local anesthesia was then administered to the appropriate areas of the neck and chest wall. Ultrasound was then used to locate the left internal jugular vein. The vein compressed easily, had no filing defects, and was patent. The vein was then punctured under direct ultrasound imaging. A guidewire was then passed centrally under fluoroscopic imaging. A stab wound was then made in the anterior chest wall and a 23 cm permcath was passed from the stab wound on the chest wall to the puncture site on the neck. The puncture site was then dilated till the 14Fr peel away sheath was inserted. The permcath was then inserted through the sheath to a central position in the distal superior vena cava. The peel away sheath was then removed. The catheter was then sutured in place using nylon sutures. The puncture was then closed using a 4-0 Vicryl subcuticular suture. Dermabond was used for a dressing on the puncture site. Both ports aspirated and flushed easily and were then packed with heparin. A sterile dressing was applied to the catheter. Then the dressings over the right IJ temporary catheter were taken down and the two sutures were cut and removed. The catheter was removed. Manual pressure over the venous insertion site was held until hemostasis was obtained. A dry sterile dressing was placed over the right IJ venous insertion site. The patient left the angio suite in good condition and tolerated the procedure well. At the conclusion of the procedure all needle, sponge, and instrument counts were correct. Dr. Arevalo remained present and scrubbed for the duration of the procedure. I attest to the content of the Intraoperative Record and any orders documented t herein. Any exceptions are noted below.
[2022-03-22] MEDS: ceFAZolin 1000MG 1,000 MG/7.5 ML SYR IV SCH (14:50)
[2022-03-22] MEDS: ACETAMINOPHEN 325 MG TAB PO PRN ×2 (14:56→22:49)
--- NOTE | 2022-03-22 17:39 | Nephrology Progress Note ---
Date of Service March 22, 2022 Assessment & Plan (1) ESRD (end stage renal disease) on dialysis: Plan: 62-year-old female with end-stage renal disease, on chronic hemodialysis, but with noncompliance and normally does 1-2 times per week. Now admitted with catheter-related bacteremia with methicillin-sensitive Staphylococcus aureus bacteremia. End-stage renal disease:Last dialysed on 03/21 with @ 2.7L UF. Her blood pressure runs low, probably because of the underlying bacteremia and sepsis, but even on good days, her blood pressure is on the low side. -HD for tomorrow w/ goal 2.5- 3 kilo off on 2k bath. -discussed w/ vascular and for TDC placement today -next HD for tomorrow (2) Bacteremia: Plan: Methicillin-sensitive Staphylococcus aureus bacteremia: This is related with dialysis catheter. Unfortunately, she seems quite prone to bacteremia as she has had multiple episodes like this in the last few months. Her dialysis days are tricky because she does not always come for dialysis, which makes antibiotics dosing difficult. On the other hand, with an extremely complicated vascular status with multiple failed arteriovenous fistula and multiple episodes of catheter placement, as much as possible would like to avoid the PICC line. -Abx as per primary team -will plan for TDC replacement today Admission and Anticipated Discharge Date Admission Date: March 14, 2022 Subjective cxs negative x >48 hrs; up in chair feeling reasonablywell today; no sob; no worsening edema Review of Systems 2 Review of Systems: All systems reviewed & are unremarkable except as noted in Subjective Physical Exam Constitutional: well developed, well nourished, + morbidly obese and cooperative; no acute distress Eyes: EOM intact bilaterally ENMT: Ears: no external ear abnormality Nose: no external nose abnormality Mouth: + dry oral mucous membranes Neck: no nuchal rigidity Respiratory: normal respiratory effort Auscultation: + diminished lung sounds Cardiovascular: Rate/Rhythm: regular rate and regular rhythm Extremities: + edema (trace edema at most) Gastrointestinal (Abdomen): Inspection/Auscultation: normal bowel sounds Percussion/Palpation: abdomen soft; abdomen nontender Musculoskeletal: Extremities: strength 5/5 throughout Skin: no rashes, warm and dry Psychiatric: Orientation: oriented x 3 Results & Data ([facility]) Vital Signs (Past 12 Hours) Vital Signs Temp Pulse Pulse Pulse Resp BP Pulse Ox 03/22/22 15:33 72 18 155/89 H 96 03/22/22 15:00 67 18 135/75 96 03/22/22 14:31 36.7 C 50 L 18 123/56 L 98 03/22/22 14:10 75 18 122/61 96 03/22/22 14:05 79 18 111/49 L 96 03/22/22 14:00 77 18 111/43 L 100 03/22/22 13:55 78 18 112/43 L 99 03/22/22 13:50 80 18 97/55 L 100 03/22/22 13:45 76 18 109/50 L 99 03/22/22 13:40 78 18 108/46 L 99 03/22/22 13:35 77 18 111/59 L 99 03/22/22 13:30 97 H 18 109/47 L 100 03/22/22 13:25 78 18 110/53 L 100 03/22/22 13:20 82 18 131/68 99 03/22/22 13:14 80 18 121/62 99 03/22/22 12:53 37.4 C 77 18 107/53 L 99 03/22/22 11:48 36.4 C L 81 18 142/71 H 96 Laboratory Results 03/22/22 07:44 03/22/22 07:44
[2022-03-22] MEDS: INSULIN GLARGINE SOLOSTAR 100 UNITS/ML 3 ML PEN SC SCH (22:03)
[2022-03-23] MEDS ORDERED: EPOETIN ALFA 20,000 UNITS/ML VIAL IV ONE (06:48)
[2022-03-23] MEDS ORDERED: SODIUM CHLORIDE 0.9% 1000ML 1,000 ML IV PRN (06:48)
[2022-03-23] MEDS ORDERED: IRON SUCROSE 100 MG in SYRINGE 0 ML IV ONE (06:48)
--- NOTE | 2022-03-23 07:58 | Hospitalist Progress Note ---
Date of Service March 23, 2022 Assessment & Plan (1) Fever: Plan: Fever 2/2 sepsis, gram-positive bacteremia, source IJ cath S/p movable of right tunneled IJ on 03/11 for suspected catheter associated bacteremia. Catheter tip growing staph species consistent with blood cultures Right shoulder CT without joint pathology( pt has persistent pain) - Continued on cefazolin 1g IV increased to 2g IV post dialysis sessions - HD IJ temp line in place. Given dialysis dependence, difficulty with access with limited sites, and concern for ability to replace line recommended keeping at this time and continue with abx US L Arm prosthetic Fistula: Discussed w vascular. 3.6 cm hyperechoic area abutting the vessel without vascular flow which may represent thrombus, fistula without surrounding fluid. ID Consulted. Recommended to discontinue nafcillin --> Cefazolin. CT for septic emboli v malignancy as noted, has recommended to proceed with KIKE. Ideally would not have temporary line with bacteremia, but needs access and reasonable to leave for now with continued IV abx, If KIKE results likley not to change immediate therapy and surgical candidacy in question for future, will hold on KIKE at this time. MSSA 4/4 blood cultures, last positive was 03/17/22~LD 04/14/22 COVID/bio fire negative CXR without evidence of pneumonia, some pulmonary edema with volume overload. Procalcitonin elevated on admit downtrending Patient pancytopenic. Anaplasmosis smear negative, PCR negative Surveillance cultures remain negative at 72 hours, continuous read not batch read. Discussed with ID. Given afebrile and negative cultures may defer KIKE at this time. Can proceed with dialysis tunneled catheter placement. Recommend extension of antibiotics to 6 weeks. Anticipate tunneled placement 03/22/22 (2) Rapid atrial fibrillation: Plan: Improved with Amio. Generally worse following dialysis and with low K, cautious repletion with dialysis and renal diet. Rapid A. fib with initial SVT with rates in 200s evening of 03/14 Did not improve initially with vagal maneuvers, was associated with hypotension to systolic 70s Patient was given digoxin 250 mcg, amiodarone drip and converted. Did return to A. fib, was reloaded with IV after oral and again rate improved. Heparin deferred due to thrombocytopenia and previous epistaxis that was severe, requiring transfusion Patient may need watchman procedure for recurrent A. fib with anemia and thrombocytopenia, however bacteremia must clear chronic diastolic heart failure Echo: EF 30-35% with global hypokinesis. No valvular abnormalities. Mild pulmonary hypertension. Similar to 11/18/2021. Mild right ventricular dilation with mildly reduced systolic function, mild left atrial dilation. (3) Hypotension: Plan: Was somewhat low at baseline, acutely lowered in the setting of A. fib and sepsis. Improved Lactate negative Has not needed pressors (4) ESRD (end stage renal disease) on dialysis: Plan: -HD dependent for 2 years -continue Phos low tid, Nephrocaps -Cefazolin dose adjusted on dialysis days as above -Fistula with possible clot as noted above -Continue dialysis per nephro. - Does not receive heparin w dialysis (5) Thrombocytopenia: Plan: -Platelets 52 on admission, worsened w/ bacteremia. Now ~80. -Likely sepsis induced, anticoagulation/heparin deferred due to hx of severe bleeding and thrombocytopenia No clinical bleeding at bedside (6) CHF (congestive heart failure): Plan: HFrEF/ chronic diastolic heart failrue, stable, as per ECHO 11/2021, EF 35% mange fluid status with HD Metoprolol (7) Chronic anemia: Plan: Continue Protonix Continue iron, B12, folate (8) HTN (hypertension): (9) Central venous catheter in place: Plan: tunneled IJ removed and cultured, has left AC endograft that is not functionig well at this time, , so temporary IJ dialysis catheter has been placed (10) IDDM (insulin dependent diabetes mellitus): Plan: - Continue basal/bolus - Pharmacy consulted for DM in ESRD (11) Hyperkalemia: Plan: -secondary to ESRD improved after kayexolate, IV insulin, calcium gluconate at OSH -Nephrology consult following Plan: DVT ppx -SCDs, hold heparin SQ due to thrombocytopenia w/ history of multiple recurrent bleeds, and hemoglobin less than 8 Downgraded to PCU 03/15-> med 03/23 DNR/DNI as per d/w patient Admission and Anticipated Discharge Date Admission Date: March 14, 2022 Subjective pt states she feels much better today has not focal somatic complaints, understands may need longer course of antibiotics for MSSA bacteremia Review of Systems Review of Systems: Mild distress and fatigue no headache, no visual changes no speech or swallowing issues no chest pain, pressure or palpitations no shortness of breath, cough or wheezes no abdominal pain, nausea or vomiting, diarrhea or constipation no dysuria, hematuria or frequency no focal joint pain or swelling no back pain, CVA tenderness or radicular pain no bruising, bleeding or rashes no focal signs of weakness or numbness or altered sensation no complaints of anxiety or depression.. Physical Exam Physical Exam: The patient appeared chronically ill. Vital signs as documented. Head exam is normocephalic atraumatic Neck is without JVD,bandage in place at IJ removal site, no thyromegaly, or carotid bruits. Lungs are clear to auscultation, no focal loss of breath sounds Cardiac exam, Rhythm is regular.. No murmurs, rubs or gallops. Abdominal exam reveals normal bowel sounds, soft non tender, no masses Extremities are nonedematous and both pedal pulses are present Neurologic exam is alert and oriented, no focal loss of strength or sensation Psychologically is without concerns for anxiety or depression.. Results & Data Results & Data ([facility]) Vital Signs (Past 12 Hours) Vital Signs Temp Pulse Pulse Resp BP Pulse Ox 03/23/22 03:00 97.9 F 74 16 127/76 98 03/22/22 23:00 98.4 F 69 75 16 104/50 L 95 PG Care Time/CCT Total # of Minutes Spent Total Time Spent with Patient: Total time spent is greater than 50% in coordination of care (as documented) at patient's floor/unit and/or counseling patient: Coding Level of Care Code 66662 Subseq Hosp Care Lvl 3 Diagnoses Fever R50.9 Rapid atrial fibrillation I48.91 Hypotension I95.9 Hyperkalemia E87.5 ESRD (end stage renal disease) on dialysis N18.6; Z99.2 Thrombocytopenia D69.6 CHF (congestive heart failure) I50.9 Chronic anemia D64.9 HTN (hypertension) I10 Central venous catheter in place Z78.9 IDDM (insulin dependent diabetes mellitus)
[2022-03-23] MEDS: AMIODARONE 200 MG TAB PO SCH ×2 (08:32→18:44)
[2022-03-23] MEDS: CALCIUM ACETATE 667 MG CAP/TAB PO SCH ×3 (08:32→18:27)
[2022-03-23] MEDS: METOPROLOL SUCC 50MG EXT REL TAB PO SCH (08:32)
[2022-03-23] MEDS: NEPHROCAPS PO SCH (08:32)
[2022-03-23] MEDS: ATORVASTATIN 20 MG TAB PO SCH (08:32)
[2022-03-23] MEDS: EZETIMIBE 10 MG TABLET PO SCH (08:32)
[2022-03-23] MEDS: PANTOprazole 40 MG TAB PO SCH ×2 (08:32→20:42)
[2022-03-23] MEDS: LIDOCAINE 5% 1 PATCH TD SCH (08:33)
[2022-03-23] MEDS: INSULIN ASPART PER UNIT SC SCH ×4 (08:40→20:42)
[2022-03-23 15:46] LABS: BUN Creatinine Ratio 7.9 (10-20); Calcium 7.8 mg/dl (8.5-10.1); Creatinine Clr Calc Pharmacy 9.2 ml/min; Est GFR (African American) 5.3 ml/min; Est GFR (Non-African American) 4.6 ml/min
[2022-03-23 15:53] LABS: Hematocrit (blood only) 23.2 % (37-47); Mean Corpuscular Hemoglobin 33.5 pg (25-34); Mean Corpuscular Hgb Conc 30.2 g/dL (32-36); Mean Platelet Volume 12.1 fL (7.4-10.4); Platelet Count 77 K/uL (130-400); RDW Coefficient of Variation 15.7 % (11.5-14.5); RDW Standard Deviation 63.1 fL (36.4-46.3); Red Blood Count 2.09 M/uL (4.2-5.4); White Blood Count 8.02 K/uL (4.8-10.8)
--- NOTE | 2022-03-23 16:07 | Dialysis Progress Note ---
Date of Service March 23, 2022 Assessment & Plan (1) ESRD (end stage renal disease) on dialysis: Plan: 62-year-old female with end-stage renal disease, on chronic hemodialysis, but with noncompliance and normally does 1-2 times per week. Now admitted with catheter-related bacteremia with methicillin-sensitive Staphylococcus aureus bacteremia. End-stage renal disease:Last dialysed on 03/21 with @ 2.7L UF. Her blood pressure runs low, probably because of the underlying bacteremia and sepsis, but even on good days, her blood pressure is on the low side. -HD for today w/ goal 2.5- 3 kilo off on 2k bath. -s/p TDC placement on 03/22 -next HD for 03/25 or as needs dictate (2) Bacteremia: Plan: Methicillin-sensitive Staphylococcus aureus bacteremia: This is related with dialysis catheter. Unfortunately, she seems quite prone to bacteremia as she has had multiple episodes like this in the last few months. Her dialysis days are tricky because she does not always come for dialysis, which makes antibiotics dosing difficult. On the other hand, with an extremely complicated vascular status with multiple failed arteriovenous fistula and multiple episodes of catheter placement, as much as possible would like to avoid the PICC line. -Abx as per primary team >> note above challenges w/ getting dialysis; may need midline if will be nonadherent after d/c w/ txs Admission and Anticipated Discharge Date Admission Date: March 14, 2022 Subjective no interval events; no sob; does not wear o2 at home; tolerating hd Review of Systems Review of Systems: All systems reviewed & are unremarkable except as noted in Subjective Physical Exam Constitutional: well developed, well nourished, + morbidly obese and cooperative; no acute distress Eyes: EOM intact bilaterally ENMT: Ears: no external ear abnormality Nose: no external nose abnormality Mouth: + dry oral mucous membranes Neck: no nuchal rigidity Respiratory: normal respiratory effort Auscultation: + diminished lung sounds Cardiovascular: Rate/Rhythm: regular rate and regular rhythm Extremities: + edema (trace edema at most) Gastrointestinal (Abdomen): Inspection/Auscultation: normal bowel sounds Percussion/Palpation: abdomen soft; abdomen nontender Musculoskeletal: Extremities: strength 5/5 throughout Skin: no rashes, warm and dry Psychiatric: Orientation: oriented x 3 Results & Data ([facility]) Vital Signs (Past 12 Hours) Vital Signs Temp Pulse Pulse Resp BP Pulse Ox 03/23/22 15:00 69 03/23/22 07:47 36.5 C 78 16 153/84 H 98 03/23/22 07:00 63 Laboratory Results 03/23/22 15:05 03/23/22 15:05
[2022-03-23 16:11] LABS: Basophils # (auto) 0.01 K/uL (0-0.2); Basophils % (auto) 0.1 %; Eosinophils # (auto) 0.07 K/uL (0-0.5); Eosinophils % (auto) 0.9 %; Hypochromasia Present; Immature Granulocytes # (auto) 0.06 K/uL (0.00-0.02); Immature Granulocytes % (auto) 0.7 %; Lymphocytes # (auto) 0.65 K/uL (1.2-3.4); Lymphocytes % (auto) 8.1 %; Monocytes % (auto) 3.7 %; Neutrophils # (auto) 6.93 K/uL (1.4-6.5); Neutrophils % (auto) 86.5 %; Stomatocytes 1+
[2022-03-23] MEDS: INSULIN GLARGINE SOLOSTAR 100 UNITS/ML 3 ML PEN SC SCH (20:42)
[2022-03-23] MEDS: ceFAZolin 1000MG 1,000 MG/7.5 ML SYR IV SCH (20:42)
[2022-03-24] MEDS: EZETIMIBE 10 MG TABLET PO SCH (08:05)
[2022-03-24] MEDS: LIDOCAINE 5% 1 PATCH TD SCH (08:05)
[2022-03-24] MEDS: NEPHROCAPS PO SCH (08:06)
[2022-03-24] MEDS: PANTOprazole 40 MG TAB PO SCH ×2 (08:06→20:44)
[2022-03-24] MEDS: ATORVASTATIN 20 MG TAB PO SCH (08:06)
[2022-03-24] MEDS: METOPROLOL SUCC 50MG EXT REL TAB PO SCH (08:06)
[2022-03-24] MEDS: CALCIUM ACETATE 667 MG CAP/TAB PO SCH ×3 (08:06→16:56)
[2022-03-24] MEDS: AMIODARONE 200 MG TAB PO SCH ×2 (08:06→16:55)
[2022-03-24] MEDS: INSULIN ASPART PER UNIT SC SCH ×4 (08:20→20:37)
--- NOTE | 2022-03-24 11:10 | Pharmacy Report ---
Pharmacy Glycemic Short Note 2 - Date of Service March 24, 2022 - Glycemic Short BSG Results (Last 24 hours): 03/23/22 03/23/22 03/23/22 12:21 12:22 12:23 Glucose POC Glucose 330 H* 211 H 204 H 03/23/22 03/23/22 03/23/22 15:05 18:50 20:12 Glucose 134 H POC Glucose 125 H 168 H 03/24/22 07:30 Glucose POC Glucose 127 H OUTPATIENT ANTIDIABETIC REGIMEN: * Lantus 12 units SQ HS * Patient's HbA1c = 5.9% today. * However, this result is likely somewhat unreliable in ESRD patients d/t interactions between the A1c analyzing technique and high levels of urea in ESRD, reduced RBC life span, iron deficiency anemia, and EPO administration. HbA1c > 7.5% in ESRD patient may overestimate the extent of hyperglycemia in ESRD patients. ASSESSMENT: 03/24: * Patient's BSGs yesterday were [phone] mg/dL and fasting this morning was 127 after 42 units of insulin yesterday (15 of which were basal). Patient did undergo HD yesterday, next session planned for tomorrow. * There was an initial lunchtime BSG >300 however immediate repeat checks confirmed this was likely an erroneous result * Fasting BSG remains acceptable, no change to lantus scale. * Of note patient did receive 15 units of novolog last evening at the HS check, however with scale parameters, dose was intended to be 3 units. * Patient is tolerating a diet. May consider tightening novolog scale slightly. 03/22: * Patient BSGs yesterday were: [phone] mg/dL. Received 38 units of insulin yesterday (20 units basal + 18 units bolus). * Lunchtime insulin given late secondary to dialysis then instructed RN to cover only carbs at dinner. Likely cause for bedtime hyperglycemia. * Fasting BSG was 152 mg/dL this AM - acceptable. Patient now NPO for possible placement of tunneled HD cath today. * No changes to insulin regimen today but monitor closely given NPO status. 03/21: * Zoya's BSGs have been relatively well controlled over the last 48 hours: [phone] mg/dL. * Received 37 units of insulin on Monday and 41 units on Monday. * Minimal adjustments to insulin regimen over the weekend (CR tightened from 8 to 7 on Monday morning). * No changes in stressors. * Fasting BSG at 143 mg/dL this AM - controlled. She will have HD today. * No adjustments to insulin regimen required today. PLAN FOR INPATIENT GLYCEMIC CONTROL: * Basal insulin * Lantus 15/20 units (20 units for BSG 200 mg/dL or more) SQ HS * Bolus insulin * NovoLog per scale ACHS or Q6hrs while NPO * Goal Range: Low 110 mg/dL - High 140 mg/dL * Correction Factor: 20 mg/dL/unit * Nutritional / Prandial insulin per carb ratio of 1 unit per 7 grams CHO consumed
[2022-03-24 12:09] LABS: Hematocrit (blood only) 26.1 % (37-47); Hemoglobin 7.8 g/dL (12.0-16.0); Mean Corpuscular Hemoglobin 33.6 pg (25-34); Mean Corpuscular Hgb Conc 29.9 g/dL (32-36); Mean Corpuscular Volume 112.5 fL (80-100); Mean Platelet Volume 12.4 fL (7.4-10.4); Platelet Count 92 K/uL (130-400); RDW Coefficient of Variation 15.5 % (11.5-14.5); RDW Standard Deviation 62.5 fL (36.4-46.3); Red Blood Count 2.32 M/uL (4.2-5.4); White Blood Count 8.21 K/uL (4.8-10.8)
[2022-03-24 12:29] LABS: BUN Creatinine Ratio 7.2 (10-20); Calcium 8.3 mg/dl (8.5-10.1); Creatinine Clr Calc Pharmacy 12.3 ml/min; Est GFR (African American) 7.6 ml/min; Est GFR (Non-African American) 6.6 ml/min; Potassium 4.2 mmol/L (3.5-5.1)
[2022-03-24] MEDS: ceFAZolin 1000MG 1,000 MG/7.5 ML SYR IV SCH (14:35)
--- NOTE | 2022-03-24 16:30 | XCELERA ---
[id number]
--- NOTE | 2022-03-24 17:35 | Hospitalist Progress Note ---
Date of Service March 24, 2022 Assessment & Plan (1) Fever: Plan: Fever 2/2 sepsis, gram-positive bacteremia, source IJ cath S/p movable of right tunneled IJ on 03/11 for suspected catheter associated bacteremia. Catheter tip growing staph species consistent with blood cultures Right shoulder CT without joint pathology( pt has persistent pain) - Continued on cefazolin 1g IV increased to 2g IV post dialysis sessions - HD IJ temp line in place. Given dialysis dependence, difficulty with access with limited sites, and concern for ability to replace line recommended keeping at this time and continue with abx US L Arm prosthetic Fistula: Discussed w vascular. 3.6 cm hyperechoic area abutting the vessel without vascular flow which may represent thrombus, fistula without surrounding fluid. ID Consulted. Recommended to discontinue nafcillin --> Cefazolin. CT for septic emboli v malignancy as noted, has recommended to proceed with KIKE. Ideally would not have temporary line with bacteremia, but needs access and reasonable to leave for now with continued IV abx, If KIKE results likley not to change immediate therapy and surgical candidacy in question for future, will hold on KIKE at this time. MSSA 4/4 blood cultures, last positive was 03/17/22~LD 04/14/22 COVID/bio fire negative CXR without evidence of pneumonia, some pulmonary edema with volume overload. Procalcitonin elevated on admit downtrending Patient pancytopenic. Anaplasmosis smear negative, PCR negative Surveillance cultures remain negative at 72 hours, continuous read not batch read. Discussed with ID. Given afebrile and negative cultures did repeat randall sthoracic on 03/24, defer KIKE at this time. Can proceed with dialysis tunneled catheter placement. Recommend extension of antibiotics to 6 weeks. tunneled placement 03/22/22 (2) Rapid atrial fibrillation: Plan: Improved with Amio. Generally worse following dialysis and with low K, cautious repletion with dialysis and renal diet. Rapid A. fib with initial SVT with rates in 200s evening of 03/14 Did not improve initially with vagal maneuvers, was associated with hypotension to systolic 70s Patient was given digoxin 250 mcg, amiodarone drip and converted. Did return to A. fib, was reloaded with IV after oral and again rate improved. Heparin deferred due to thrombocytopenia and previous epistaxis that was severe, requiring transfusion Patient may need watchman procedure for recurrent A. fib with anemia and thrombocytopenia, however bacteremia must clear chronic diastolic heart failure Echo: EF 30-35% with global hypokinesis. No valvular abnormalities. Mild pulmonary hypertension. Similar to 11/18/2021. Mild right ventricular dilation with mildly reduced systolic function, mild left atrial dilation. (3) Hypotension: Plan: Was somewhat low at baseline, acutely lowered in the setting of A. fib and s epsis. Improved Lactate negative Has not needed pressors (4) ESRD (end stage renal disease) on dialysis: Plan: -HD dependent for 2 years -continue Phos low tid, Nephrocaps -Cefazolin dose adjusted on dialysis days as above -Fistula with possible clot as noted above -Continue dialysis per nephro. - Does not receive heparin w dialysis (5) Thrombocytopenia: Plan: -Platelets 52 on admission, worsened w/ bacteremia. Now ~80. -Likely sepsis induced, anticoagulation/heparin deferred due to hx of severe bleeding and thrombocytopenia No clinical bleeding at bedside (6) CHF (congestive heart failure): Plan: HFrEF/ chronic diastolic heart failrue, stable, as per ECHO 11/2021, EF 35% mange fluid status with HD Metoprolol (7) Chronic anemia: Plan: Continue Protonix Continue iron, B12, folate Patient received erythropoietin this week. Patient's hemoglobin is 7.8 we will continue to watch and transfuse if needed but continue to augment per nephrology's oversight (8) HTN (hypertension): (9) Central venous catheter in place: Plan: tunneled IJ removed and cultured, has left AC endograft that is not functionig well at this time, , so temporary IJ dialysis catheter has been placed 03/22/2022 (10) IDDM (insulin dependent diabetes mellitus): Plan: - Continue basal/bolus - Pharmacy consulted for DM in ESRD (11) Hyperkalemia: Plan: -secondary to ESRD improved after kayexolate, IV insulin, calcium gluconate at OSH -Nephrology consult following Plan: DVT ppx -SCDs, hold heparin SQ due to thrombocytopenia w/ history of multiple recurrent bleeds, and hemoglobin less than 8 Downgraded to PCU 03/15-> med 03/23 DNR/DNI as per d/w patient Admission and Anticipated Discharge Date Admission Date: March 14, 2022 Subjective pt states she feels much better today has not focal somatic complaints, she has a nonblanchable rash on her left arm but this is without pain discomfort. She understands may need longer course of antibiotics for MSSA bacteremia Review of Systems Review of Systems: Mild distress and fatigue no headache, no visual changes no speech or swallowing issues no chest pain, pressure or palpitations no shortness of breath, cough or wheezes no abdominal pain, nausea or vomiting, diarrhea or constipation no dysuria, hematuria or frequency no focal joint pain or swelling no back pain, CVA tenderness or radicular pain Bruising distally on her left arm no focal signs of weakness or numbness or altered sensation no complaints of anxiety or depression.. Physical Exam Physical Exam: The patient appeared chronically ill. Vital signs as documented. Head exam is normocephalic atraumatic Neck is without JVD,bandage in place at IJ removal site, no thyromegaly, or carotid bruits. Lungs are clear to auscultation, no focal loss of breath sounds Cardiac exam, Rhythm is regular.. No murmurs, rubs or gallops. Abdominal exam reveals normal bowel sounds, soft non tender, no masses Extremities are nonedematous and both pedal pulses are present Neurologic exam is alert and oriented, no focal loss of strength or sensation Psychologically is without concerns for anxiety or depression.. Results & Data Results & Data ([facility]) Vital Signs (Past 12 Hours) Vital Signs Temp Pulse Pulse Pulse Resp BP Pulse Ox 03/24/22 15:21 99.0 F 72 18 98/41 L 96 03/24/22 14:57 65 03/24/22 10:45 76 03/24/22 07:00 99.1 F 71 20 121/64 97 PG Care Time/CCT Total # of Minutes Spent Total Time Spent with Patient: Total time spent is greater than 50% in coordination of care (as documented) at patient's floor/unit and/or counseling patient: Coding Level of Care Code 46969 Subseq Hosp Care Lvl 2 Diagnoses Fever R50.9 Rapid atrial fibrillation I48.91 Hypotension I95.9 ESRD (end stage renal disease) on dialysis N18.6; Z99.2 Thrombocytopenia D69.6 CHF (congestive heart failure) I50.9 Chronic anemia D64.9 HTN (hypertension) I10 Central venous catheter in place Z78.9 IDDM (insulin dependent diabetes mellitus) Hyperkalemia E87.5
--- NOTE | 2022-03-24 17:49 | Nephrology Progress Note ---
Date of Service March 24, 2022 Assessment & Plan (1) ESRD (end stage renal disease) on dialysis: Plan: 62-year-old female with end-stage renal disease, on chronic hemodialysis, but with noncompliance and normally does 1-2 times per week. Now admitted with catheter-related bacteremia with methicillin-sensitive Staphylococcus aureus bacteremia. End-stage renal disease:Last dialysed on 03/21 with @ 2.7L UF. Her blood pressure runs low, probably because of the underlying bacteremia and sepsis, but even on good days, her blood pressure is on the low side. -HD for today w/ goal 2.5- 3 kilo off on 2k bath. -s/p TDC placement on 03/22 -next HD for 03/25 or as needs dictate (2) Bacteremia: Plan: Methicillin-sensitive Staphylococcus aureus bacteremia: This is related with dialysis catheter. Unfortunately, she seems quite prone to bacteremia as she has had multiple episodes like this in the last few months. Her dialysis days are tricky because she does not always come for dialysis, which makes antibiotics dosing difficult. On the other hand, with an extremely complicated vascular status with multiple failed arteriovenous fistula and multiple episodes of catheter placement, as much as possible would like to avoid the PICC line. -Abx as per primary team >>>SHE AGREES to do OP dialysis 3X weekly if d/c to this while still on her LT abtx; otherwise would need PICC which she and team wish to avoid Admission and Anticipated Discharge Date Admission Date: March 14, 2022 Subjective seen on round sthis am; feeling /doing well > up in chair; no worse sob or malaise; Review of Systems Review of Systems: All systems reviewed & are unremarkable except as noted in Subjective Physical Exam Constitutional: well developed, well nourished, + morbidly obese and cooperative; no acute distress Eyes: EOM intact bilaterally ENMT: Ears: no external ear abnormality Nose: no external nose abnormality Mouth: + dry oral mucous membranes Neck: no nuchal rigidity Respiratory: normal respiratory effort Auscultation: + diminished lung sounds Cardiovascular: Rate/Rhythm: regular rate and regular rhythm Extremities: + edema (trace edema at most) Gastrointestinal (Abdomen): Inspection/Auscultation: normal bowel sounds Percussion/Palpation: abdomen soft; abdomen nontender Musculoskeletal: Extremities: strength 5/5 throughout Skin: no rashes, warm and dry Psychiatric: Orientation: oriented x 3 Results & Data ([facility]) Vital Signs (Past 12 Hours) Vital Signs Temp Pulse Pulse Pulse Resp BP Pulse Ox 03/24/22 15:21 37.2 C 72 18 98/41 L 96 03/24/22 14:57 65 03/24/22 10:45 76 03/24/22 07:00 37.3 C 71 20 121/64 97 Laboratory Results 03/24/22 11:07 03/24/22 11:07
[2022-03-24] MEDS: INSULIN GLARGINE SOLOSTAR 100 UNITS/ML 3 ML PEN SC SCH (20:40)
[2022-03-25] MEDS: LOPERAMIDE HCL 2 MG CAP PO PRN (05:56)
[2022-03-25] MEDS ORDERED: SODIUM CHLORIDE 0.9% 1000ML 1,000 ML IV PRN (07:09)
[2022-03-25] MEDS ORDERED: IRON SUCROSE 100 MG in SYRINGE 0 ML IV ONE (07:30)
[2022-03-25] MEDS ORDERED: EPOETIN ALFA 20,000 UNITS/ML VIAL IV ONE (07:30)
[2022-03-25] MEDS: INSULIN ASPART PER UNIT SC SCH ×4 (08:01→20:27)
[2022-03-25] MEDS: LIDOCAINE 5% 1 PATCH TD SCH (08:03)
[2022-03-25] MEDS: CALCIUM ACETATE 667 MG CAP/TAB PO SCH ×3 (13:47→16:49)
[2022-03-25] MEDS: NEPHROCAPS PO SCH (13:48)
[2022-03-25] MEDS: METOPROLOL SUCC 50MG EXT REL TAB PO SCH (13:49)
[2022-03-25] MEDS: PANTOprazole 40 MG TAB PO SCH ×2 (13:49→20:25)
[2022-03-25] MEDS: AMIODARONE 200 MG TAB PO SCH ×2 (13:49→16:49)
[2022-03-25] MEDS: EZETIMIBE 10 MG TABLET PO SCH (13:50)
[2022-03-25] MEDS: ATORVASTATIN 20 MG TAB PO SCH (13:50)
[2022-03-25] MEDS: ceFAZolin 1000MG 1,000 MG/7.5 ML SYR IV SCH (14:11)
--- NOTE | 2022-03-25 16:21 | Hospitalist Progress Note ---
Date of Service March 25, 2022 Assessment & Plan (1) Fever: Plan: Fever 2/2 sepsis, gram-positive bacteremia, source IJ cath S/p movable of right tunneled IJ for suspected catheter associated bacteremia. Catheter tip growing staph species consistent with blood cultures Right shoulder CT without joint pathology( pt has persistent pain) - Continued on cefazolin 1g IV increased to 2g IV post dialysis sessions -new site has some drainage, cultures obtained US L Arm prosthetic Fistula: Discussed w vascular. 3.6 cm hyperechoic area abutting the vessel without vascular flow which may represent thrombus, fistula without surrounding fluid. ID Consulted. Recommended --> Cefazolin. recommended to proceed with KIKE.f KIKE results likley not to change immediate therapy and surgical candidacy in question for future, hold on KIKE at this time. MSSA / blood cultures, last positive was 03/17/22~LD 04/14/22, new culture of purulnece 03/25 COVID/bio fire negative CXR without evidence of pneumonia, some pulmonary edema with volume overload. Procalcitonin elevated on admit downtrending Patient pancytopenic. Anaplasmosis smear negative, PCR negative Surveillance cultures remain negative at 72 hours. Discussed with ID. Given afebrile and negative cultures did repeat transthoracic on 03/24, defer KIKE at this time. did proceed with dialysis tunneled catheter placement. Recommend extension of antibiotics to 6 weeks. tunneled placement 03/22/22 03/25/22 some drainage from new cath site, cultured (2) Rapid atrial fibrillation: Plan: Improved with Amio. Generally worse following dialysis and with low K, cautious repletion with dialysis and renal diet. Rapid A. fib with initial SVT with rates in 200s evening of 03/14 was given digoxin 250 mcg, amiodarone drip and converted. Did return to A. fib, was reloaded with IV after oral and again rate improved. Anticoagulation deferred due to thrombocytopenia and previous epistaxis that was severe, requiring transfusion Patient may need watchman procedure for recurrent A. fib with anemia and thrombocytopenia, however bacteremia must clear chronic diastolic heart failure Echo: EF 30-35% with global hypokinesis. No valvular abnormalities. Mild pulmonary hypertension. Similar to 11/18/2021. Mild right ventricular dilation with mildly reduced systolic function, mild left atrial dilation. (3) Hypotension: Plan: Was somewhat low at baseline, acutely lowered in the setting of A. fib and s epsis. Improved Lactate negative Has not needed pressors (4) ESRD (end stage renal disease) on dialysis: Plan: -HD dependent for 2 years -continue Phos low tid, Nephrocaps -Cefazolin dose adjusted on dialysis days as above -Fistula with possible clot as noted above, needed temporary line -Continue dialysis per nephro. - Does not receive heparin w dialysis (5) Thrombocytopenia: Plan: -Likely sepsis induced, anticoagulation/heparin deferred due to hx of severe bleeding and thrombocytopenia No clinical bleeding at bedside (6) CHF (congestive heart failure): Plan: HFrEF/ chronic diastolic heart failrue, stable, as per ECHO 11/2021, EF 35% mange fluid status with HD Metoprolol (7) Chronic anemia: Plan: Continue Protonix Continue iron, B12, folate Patient received erythropoietin this week. transfuse if needed but continue to augment per nephrology's oversight (8) HTN (hypertension): (9) Central venous catheter in place: Plan: tunneled IJ removed and cultured, has left AC endograft that is not functionig well at this time, , so temporary IJ dialysis catheter has been placed 03/22/2022 cultured fluid and blood 03/25 (10) IDDM (insulin dependent diabetes mellitus): Plan: - Continue basal/bolus - Pharmacy consulted for DM in ESRD (11) Hyperkalemia: Plan: -secondary to ESRD improved after kayexolate, IV insulin, calcium gluconate at OSH -Nephrology consult following Plan: DVT ppx -SCDs, hold heparin SQ due to thrombocytopenia w/ history of multiple recurrent bleeds, and hemoglobin less than 8 DNR/DNI as per d/w patient Admission and Anticipated Discharge Date Admission Date: March 14, 2022 Subjective pt was seen in dialysis unit is very sleepy, after dialysis nursing noted some purulent fluid leaking from left Ij cath site, culture obtained Review of Systems Review of Systems: Mild distress and fatigue no headache, no visual changes no speech or swallowing issues no chest pain, pressure or palpitations no shortness of breath, cough or wheezes no abdominal pain, nausea or vomiting, diarrhea or constipation no dysuria, hematuria or frequency no focal joint pain or swelling no back pain, CVA tenderness or radicular pain Bruising distally on her left arm, some drainage from tunneled cath site, cultured no focal signs of weakness or numbness or altered sensation no complaints of anxiety or depression.. Physical Exam Physical Exam: The patient appeared chronically ill. Vital signs as documented. Head exam is normocephalic atraumatic Neck is without JVD,bandage in place at IJ removal site, left neck with some fluid from tunnel, culture obtained Lungs are clear to auscultation, no focal loss of breath sounds Cardiac exam, Rhythm is regular.. No murmurs, rubs or gallops. Abdominal exam reveals normal bowel sounds, soft non tender, no masses Extremities are nonedematous and both pedal pulses are present Neurologic exam is alert and oriented, no focal loss of strength or sensation Psychologically is without concerns for anxiety or depression.. Results & Data Results & Data ([facility]) Vital Signs (Past 12 Hours) Vital Signs Temp Pulse Pulse Pulse Pulse Resp BP 03/25/22 15:43 80 03/25/22 13:43 98.2 F 75 85 03/25/22 13:42 97.5 F L 76 20 03/25/22 13:00 64 96/33 L 03/25/22 12:30 59 L 104/47 L 03/25/22 12:00 61 151/95 H 03/25/22 11:30 76 127/89 03/25/22 11:00 75 119/96 03/25/22 10:30 75 91/41 L 03/25/22 10:18 98.2 F 75 03/25/22 10:00 64 90/41 L 03/25/22 09:00 67 03/25/22 08:00 98.2 F 65 18 BP Pulse Ox 03/25/22 15:43 03/25/22 13:43 101/86 03/25/22 13:42 116/52 L 96 03/25/22 13:00 03/25/22 12:30 03/25/22 12:00 03/25/22 11:30 03/25/22 11:00 03/25/22 10:30 03/25/22 10:18 03/25/22 10:00 03/25/22 09:00 03/25/22 08:00 115/69 96 PG Care Time/CCT Total # of Minutes Spent Total Time Spent with Patient: Total time spent is greater than 50% in coordination of care (as documented) at patient's floor/unit and/or counseling patient: Coding Level of Care Code 25788 Subseq Hosp Care Lvl 3 Diagnoses Fever R50.9 Rapid atrial fibrillation I48.91 Hypotension I95.9 ESRD (end stage renal disease) on dialysis N18.6; Z99.2 Thrombocytopenia D69.6 CHF (congestive heart failure) I50.9 Chronic anemia D64.9 HTN (hypertension) I10 Central venous catheter in place Z78.9 IDDM (insulin dependent diabetes mellitus) Hyperkalemia E87.5
--- NOTE | 2022-03-25 17:36 | Nephrology Progress Note ---
Date of Service March 25, 2022 Assessment & Plan (1) ESRD (end stage renal disease) on dialysis: Plan: 62-year-old female with end-stage renal disease, on chronic hemodialysis, but with noncompliance and normally does 1-2 times per week. Now admitted with catheter-related bacteremia with methicillin-sensitive Staphylococcus aureus bacteremia. End-stage renal disease:Last dialysed on 03/21 with @ 2.7L UF. Her blood pressure runs low, probably because of the underlying bacteremia and sepsis, but even on good days, her blood pressure is on the low side.Tolerated 2L UF on 03/25. -HD for 03/28 w/ goal 2.5- 3 kilo off as tolerated or sooner as needed. -s/p TDC placement on 03/22 (2) Bacteremia: Plan: Methicillin-sensitive Staphylococcus aureus bacteremia: This is related with dialysis catheter. Unfortunately, she seems quite prone to bacteremia as she has had multiple episodes like this in the last few months. Her dialysis days are tricky because she does not always come for dialysis, which makes antibiotics dosing difficult. On the other hand, with an extremely complicated vascular status with multiple failed arteriovenous fistula and multiple episodes of catheter placement, as much as possible would like to avoid the PICC line. -Abx as per primary team >>>SHE AGREES to do OP dialysis 3X weekly if d/c to this while still on her LT abtx; otherwise would need PICC which she and team wish to avoid Admission and Anticipated Discharge Date Admission Date: March 14, 2022 Subjective no interval events; seen on rounds early AM today >> noted looser stools at that time; no c/o uncontrolled abd/mscskel pain, no sob Review of Systems Review of Systems: All systems reviewed & are unremarkable except as noted in Subjective Physical Exam Constitutional: well developed, well nourished, + morbidly obese and cooperative; no acute distress Eyes: EOM intact bilaterally ENMT: Ears: no external ear abnormality Nose: no external nose abnormality Mouth: + dry oral mucous membranes Neck: no nuchal rigidity Respiratory: normal respiratory effort Auscultation: + diminished lung sounds Cardiovascular: Rate/Rhythm: regular rate and regular rhythm Extremities: + edema (trace edema at most) Gastrointestinal (Abdomen): Inspection/Auscultation: normal bowel sounds Percussion/Palpation: abdomen soft; abdomen nontender Musculoskeletal: Extremities: strength 5/5 throughout Skin: no rashes, warm and dry Neurologic: mc, fluent speech, no tremor Psychiatric: Orientation: oriented x 3 Results & Data ([facility]) Vital Signs (Past 12 Hours) Vital Signs Temp Pulse Pulse Pulse Pulse Resp BP 03/25/22 15:43 80 03/25/22 13:43 36.8 C 75 85 03/25/22 13:42 36.4 C L 76 20 03/25/22 13:00 64 96/33 L 03/25/22 12:30 59 L 104/47 L 03/25/22 12:00 61 151/95 H 03/25/22 11:30 76 127/89 03/25/22 11:00 75 119/96 03/25/22 10:30 75 91/41 L 03/25/22 10:18 36.8 C 75 03/25/22 10:00 64 90/41 L 03/25/22 09:00 67 03/25/22 08:00 36.8 C 65 18 BP Pulse Ox 03/25/22 15:43 03/25/22 13:43 101/86 03/25/22 13:42 116/52 L 96 03/25/22 13:00 03/25/22 12:30 03/25/22 12:00 03/25/22 11:30 03/25/22 11:00 03/25/22 10:30 03/25/22 10:18 03/25/22 10:00 03/25/22 09:00 03/25/22 08:00 115/69 96 Laboratory Results 03/24/22 11:07 03/24/22 11:07
[2022-03-25] MEDS: INSULIN GLARGINE SOLOSTAR 100 UNITS/ML 3 ML PEN SC SCH (20:22)
[2022-03-25] MEDS: ACETAMINOPHEN 325 MG TAB PO PRN (20:35)
[2022-03-26 06:50] LABS: Hematocrit (blood only) 20.9 % (37-47); Hemoglobin 6.8 g/dL (12.0-16.0); Mean Corpuscular Hemoglobin 36.6 pg (25-34); Mean Corpuscular Hgb Conc 32.5 g/dL (32-36); Mean Corpuscular Volume 112.4 fL (80-100); Platelet Count 83 K/uL (130-400); Red Blood Count 1.86 M/uL (4.2-5.4)
[2022-03-26 07:18] LABS: BUN Creatinine Ratio 6.5 (10-20); Creatinine Clr Calc Pharmacy 13.2 ml/min; Est GFR (African American) 8.3 ml/min; Est GFR (Non-African American) 7.2 ml/min; Potassium 3.6 mmol/L (3.5-5.1)
[2022-03-26] MEDS: INSULIN ASPART PER UNIT SC SCH ×4 (07:39→20:26)
[2022-03-26] MEDS: NEPHROCAPS PO SCH (08:00)
[2022-03-26] MEDS: CALCIUM ACETATE 667 MG CAP/TAB PO SCH ×3 (08:00→17:07)
[2022-03-26] MEDS: AMIODARONE 200 MG TAB PO SCH ×2 (08:00→17:07)
[2022-03-26] MEDS: METOPROLOL SUCC 50MG EXT REL TAB PO SCH (08:01)
[2022-03-26] MEDS: ATORVASTATIN 20 MG TAB PO SCH (08:01)
[2022-03-26] MEDS: PANTOprazole 40 MG TAB PO SCH ×2 (08:01→20:29)
[2022-03-26] MEDS: LIDOCAINE 5% 1 PATCH TD SCH (08:01)
[2022-03-26] MEDS: EZETIMIBE 10 MG TABLET PO SCH (08:01)
[2022-03-26] MEDS ORDERED: SODIUM CHLORIDE 0.9% 250 ML IV PRN ×2 (08:12→08:14)
--- NOTE | 2022-03-26 15:08 | Hospitalist Progress Note ---
Date of Service March 26, 2022 Assessment & Plan (1) Severe sepsis: Plan: Secondary to gram-positive bacteremia, source IJ cath S/p movable of right tunneled IJ for suspected catheter associated bacteremia. Catheter tip growing staph species consistent with blood cultures Right shoulder CT without joint pathology( pt has persistent pain) - Continued on cefazolin 1g IV increased to 2g IV post dialysis sessions -Some clinical improvement following antibiotics US L Arm prosthetic Fistula: Discussed w vascular. 3.6 cm hyperechoic area abutting the vessel without vascular flow which may represent thrombus, fistula without surrounding fluid. ID Consulted. Recommended --> Cefazolin. recommended to proceed with KIKE.f KIKE results likley not to change immediate therapy and surgical candidacy in question for future, hold on KIKE at this time. MSSA 01/10 blood cultures, last positive was 03/17/22~LD 04/14/22, new culture of purulnece 03/25 COVID/bio fire negative CXR without evidence of pneumonia, some pulmonary edema with volume overload. Procalcitonin elevated on admit downtrending Patient pancytopenic. Anaplasmosis smear negative, PCR negative Surveillance cultures remain negative at 72 hours. Discussed with ID. Given afebrile and negative cultures did repeat transthoracic on 03/24, defer KIKE at this time. did proceed with dialysis tunneled catheter placement. Recommend extension of antibiotics to 6 weeks. tunneled placement 03/22/22 (2) Rapid atrial fibrillation: Plan: Improved with Amio. Generally worse following dialysis and with low K, cautious repletion with dialysis and renal diet. Rapid A. fib with initial SVT with rates in 200s evening of 03/14 was given digoxin 250 mcg, amiodarone drip and converted. Did return to A. fib, was reloaded with IV after oral and again rate improved. Anticoagulation deferred due to thrombocytopenia and previous epistaxis that was severe, requiring transfusion Patient may need watchman procedure for recurrent A. fib with anemia and thrombocytopenia, however bacteremia must clear chronic diastolic heart failure Echo: EF 30-35% with global hypokinesis. No valvular abnormalities. Mild pulmonary hypertension. Similar to 11/18/2021. Mild right ventricular dilation with mildly reduced systolic function, mild left atrial dilation. (3) Hypotension: Plan: Was somewhat low at baseline, acutely lowered in the setting of A. fib and sepsis. Improved Lactate negative Has not needed pressors (4) ESRD (end stage renal disease) on dialysis: Plan: -HD dependent for 2 years -continue Phos low tid, Nephrocaps -Cefazolin dose adjusted on dialysis days as above -Fistula with possible clot as noted above, needed temporary line -Continue dialysis per nephro. - Does not receive heparin w dialysis (5) Thrombocytopenia: Plan: -Likely sepsis induced, anticoagulation/heparin deferred due to hx of severe bleeding and thrombocytopenia No clinical bleeding at bedside, some lower extremity purpura (6) Acute on chronic anemia: Plan: Transfuse 1 unit of blood, Hb was 6.8 today, likely due to sepsis Receck Hb tomorrow (7) CHF (congestive heart failure): Plan: HFrEF/ chronic diastolic heart failrue, stable, as per ECHO 11/2021, EF 35% mange fluid status with HD Metoprolol (8) Chronic anemia: Plan: Continue Protonix Continue iron, B12, folate Patient received erythropoietin this week. transfuse if needed but continue to augment per nephrology's oversight (9) Central venous catheter in place: Plan: tunneled IJ removed and cultured, has left AC endograft that is not functionig well at this time, , so temporary IJ dialysis catheter has been placed 03/22/2022 cultured fluid and blood 03/25 (10) HTN (hypertension): (11) IDDM (insulin dependent diabetes mellitus): Plan: - Continue basal/bolus - Pharmacy consulted for DM in ESRD (12) Hyperkalemia: Plan: -secondary to ESRD improved after kayexolate, IV insulin, calcium gluconate at OSH -Nephrology consult following (13) Fever: Plan: Fever 2/2 sepsis, 03/25/22 some drainage from new cath site, cultured Plan: Patient will need a total of 6 weeks of antibiotics. Case management has been consulted for disposition DVT ppx -SCDs, hold heparin SQ due to thrombocytopenia w/ history of multiple recurrent bleeds, and hemoglobin less than 8 DNR/DNI as per d/w patient Admission and Anticipated Discharge Date Admission Date: March 14, 2022 Subjective Patient seen and examined today, states she feels overall better Review of Systems Review of Systems: All systems reviewed are negative, apart from the ones contained in the history. Physical Exam Physical Exam: The patient is awake, alert and oriented 3, well developed and well nourished, normocephalic and atraumatic, lying in bed and in no acute distress. HEENT--PERRL, EOMI, mucous membranes and oropharynx mildly dry Neck--supple. No JVD. No bruits. Thyroid normal, trachea midline, no adenopathy. Heart--normal S1 and S2. No murmurs, rubs or gallops. Lungs--clear bilaterally, no respiratory distress, no accessory muscle use. Abdomen--normal bowel sounds and soft. Mild epigastric and left sided abdominal pain Extremities--no cyanosis or clubbing. No edema. Dermatologic--normal skin turgor, normal color, no abnormal lymph nodes, no rash. Neurologic--cranial nerves II through XII grossly intact. Rheumatologic--normal range of motion. Psychiatric--normal affect. Results & Data Results & Data ([facility]) Vital Signs (Past 12 Hours) Vital Signs Temp Pulse Pulse Resp BP BP Pulse Ox 03/26/22 14:13 98.6 F 75 18 150/72 H 2 L 03/26/22 13:50 98.4 F 74 20 133/92 96 03/26/22 13:48 98.4 F 74 20 133/92 96 03/26/22 13:43 98.2 F 73 20 153/77 H 97 03/26/22 13:28 98.8 F 73 18 140/80 97 03/26/22 13:27 98.4 F 74 20 133/92 96 03/26/22 13:13 98.1 F 76 18 141/64 H 98 03/26/22 12:43 98.4 F 78 18 147/76 H 97 03/26/22 11:43 99.0 F 81 18 144/62 H 97 03/26/22 11:13 99.0 F 76 20 128/80 97 03/26/22 11:12 98.8 F 79 18 117/66 97 03/26/22 10:58 99.0 F 80 18 137/55 L 97 03/26/22 10:38 98.6 F 76 14 120/48 L 97 03/26/22 07:00 98.1 F 75 18 108/51 L 97 PG Care Time/CCT Total # of Minutes Spent Total Time Spent with Patient: Total time spent is greater than 50% in coordination of care (as documented) at patient's floor/unit and/or counseling patient: Coding Level of Care Code 71675 Subseq Hosp Care Lvl 2 Diagnoses Fever R50.9 Rapid atrial fibrillation I48.91 Hypotension I95.9 ESRD (end stage renal disease) on dialysis N18.6; Z99.2 Thrombocytopenia D69.6 CHF (congestive heart failure) I50.9 Chronic anemia D64.9 HTN (hypertension) I10 Central venous catheter in place Z78.9 IDDM (insulin dependent diabetes mellitus) Hyperkalemia E87.5 Severe sepsis A41.9; R65.20 Acute on chronic anemia D64.9 Time Spent (min) 35
[2022-03-26] MEDS: ceFAZolin 1000MG 1,000 MG/7.5 ML SYR IV SCH (15:27)
[2022-03-26] MEDS ORDERED: INSULIN GLARGINE SOLOSTAR 100 UNITS/ML 3 ML PEN SC SCH (21:00)
[2022-03-27 06:41] LABS: Hematocrit (blood only) 27.8 % (37-47); Mean Corpuscular Hemoglobin 34.2 pg (25-34); Mean Corpuscular Hgb Conc 32.4 g/dL (32-36); Mean Corpuscular Volume 105.7 fL (80-100); Mean Platelet Volume 12.6 fL (7.4-10.4); Platelet Count 96 K/uL (130-400); RDW Coefficient of Variation 20.3 % (11.5-14.5); RDW Standard Deviation 76.2 fL (36.4-46.3); Red Blood Count 2.63 M/uL (4.2-5.4); White Blood Count 7.28 K/uL (4.8-10.8)
[2022-03-27 07:58] LABS: BUN Creatinine Ratio 7.7 (10-20); Calcium 8.5 mg/dl (8.5-10.1); Creatinine Clr Calc Pharmacy 10.6 ml/min; Est GFR (African American) 6.4 ml/min; Est GFR (Non-African American) 5.5 ml/min
[2022-03-27] MEDS: INSULIN ASPART PER UNIT SC SCH ×4 (08:01→20:44)
[2022-03-27] MEDS: CALCIUM ACETATE 667 MG CAP/TAB PO SCH ×3 (08:03→17:11)
[2022-03-27] MEDS: LIDOCAINE 5% 1 PATCH TD SCH (08:03)
[2022-03-27] MEDS: ATORVASTATIN 20 MG TAB PO SCH (08:03)
[2022-03-27] MEDS: EZETIMIBE 10 MG TABLET PO SCH (08:03)
[2022-03-27] MEDS: AMIODARONE 200 MG TAB PO SCH ×2 (08:03→17:10)
[2022-03-27] MEDS: NEPHROCAPS PO SCH (08:04)
[2022-03-27] MEDS: METOPROLOL SUCC 50MG EXT REL TAB PO SCH (08:04)
[2022-03-27] MEDS: PANTOprazole 40 MG TAB PO SCH ×2 (08:04→20:52)
--- NOTE | 2022-03-27 12:42 | Hospitalist Progress Note ---
Date of Service March 27, 2022 Assessment & Plan (1) Severe sepsis: Plan: Secondary to gram-positive bacteremia, source IJ cath S/p movable of right tunneled IJ for suspected catheter associated bacteremia. Catheter tip growing staph species consistent with blood cultures Right shoulder CT without joint pathology( pt has persistent pain) - Continued on cefazolin 1g IV increased to 2g IV post dialysis sessions -Some clinical improvement following antibiotics US L Arm prosthetic Fistula: Discussed w vascular. 3.6 cm hyperechoic area abutting the vessel without vascular flow which may represent thrombus, fistula without surrounding fluid. ID Consulted. Recommended --> Cefazolin. recommended to proceed with KIKE.f KIKE results likley not to change immediate therapy and surgical candidacy in question for future, hold on KIKE at this time. MSSA 01/10 blood cultures, last positive was 03/17/22~LD 04/14/22, new culture of purulnece 03/25 COVID/bio fire negative CXR without evidence of pneumonia, some pulmonary edema with volume overload. Procalcitonin elevated on admit downtrending Patient pancytopenic. Anaplasmosis smear negative, PCR negative Discussed with ID. Given afebrile and negative cultures did repeat transth oracic on 03/24, defer KIKE at this time. did proceed with dialysis tunneled catheter placement. Recommend extension of antibiotics to 6 weeks. tunneled placement 03/22/22 (2) Rapid atrial fibrillation: Plan: Improved with Amio. Generally worse following dialysis and with low K, cautious repletion with dialysis and renal diet. Rapid A. fib with initial SVT with rates in 200s evening of 03/14 was given digoxin 250 mcg, amiodarone drip and converted. Did return to A. fib, was reloaded with IV after oral and again rate improved. Anticoagulation deferred due to thrombocytopenia and previous epistaxis that was severe, requiring transfusion Patient may need watchman procedure for recurrent A. fib with anemia and thrombocytopenia, however bacteremia must clear chronic diastolic heart failure Echo: EF 30-35% with global hypokinesis. No valvular abnormalities. Mild pulmonary hypertension. Similar to 11/18/2021. Mild right ventricular dilation with mildly reduced systolic function, mild left atrial dilation. (3) Hypotension: Plan: resolved (4) ESRD (end stage renal disease) on dialysis: Plan: -HD dependent for 2 years -continue Phos low tid, Nephrocaps -Cefazolin dose adjusted on dialysis days as above -Fistula with possible clot as noted above, needed temporary line -Continue dialysis per nephro. - Does not receive heparin w dialysis (5) Thrombocytopenia: Plan: -Likely sepsis induced, anticoagulation/heparin deferred due to hx of severe bleeding and thrombocytopenia No clinical bleeding at bedside, some lower extremity purpura (6) Acute on chronic anemia: Plan: hb 9 today, after transfusion (7) CHF (congestive heart failure): Plan: HFrEF/ chronic diastolic heart failrue, stable, as per ECHO 11/2021, EF 35% mange fluid status with HD Metoprolol (8) Chronic anemia: Plan: Continue Protonix Continue iron, B12, folate Patient received erythropoietin this week. transfuse if needed but continue to augment per nephrology's oversight (9) Central venous catheter in place: Plan: tunneled IJ removed and cultured, has left AC endograft that is not functionig well at this time, , so temporary IJ dialysis catheter has been placed 03/22/2022 cultured fluid and blood 03/25 (10) HTN (hypertension): Plan: BP 158/85 today continue home meds (11) IDDM (insulin dependent diabetes mellitus): Plan: - Continue basal/bolus - Pharmacy consulted for DM in ESRD (12) Hyperkalemia: Plan: -secondary to ESRD improved after kayexolate, IV insulin, calcium gluconate at OSH -Nephrology consult following (13) Fever: Plan: resolved Plan: Patient will need a total of 6 weeks of antibiotics. Case management has been consulted for disposition DVT ppx -SCDs, hold heparin SQ due to thrombocytopenia w/ history of multiple recurrent bleeds, and hemoglobin less than 8 DNR/DNI as per d/w patient Admission and Anticipated Discharge Date Admission Date: March 14, 2022 Subjective Patient seen and examined today, states she feels overall better, no new complaints Review of Systems Review of Systems: All systems reviewed are negative, apart from the ones contained in the history. Physical Exam Physical Exam: The patient is awake, alert and oriented 3, well developed and well nourished, normocephalic and atraumatic, lying in bed and in no acute distress. HEENT--PERRL, EOMI, mucous membranes and oropharynx mildly dry Neck--supple. No JVD. No bruits. Thyroid normal, trachea midline, no adenopathy. Heart--normal S1 and S2. No murmurs, rubs or gallops. Lungs--clear bilaterally, no respiratory distress, no accessory muscle use. Abdomen--normal bowel sounds and soft. Mild epigastric and left sided abdominal pain Extremities--no cyanosis or clubbing. No edema. Dermatologic--normal skin turgor, normal color, no abnormal lymph nodes, no rash. Neurologic--cranial nerves II through XII grossly intact. Rheumatologic--normal range of motion. Psychiatric--normal affect. Results & Data Results & Data ([facility]) Vital Signs (Past 12 Hours) Vital Signs Temp Pulse Resp BP Pulse Ox 03/27/22 11:11 97.5 F L 68 18 158/85 H 99 03/27/22 07:34 98.4 F 67 20 142/76 H 97 PG Care Time/CCT Total # of Minutes Spent Total Time Spent with Patient: Total time spent is greater than 50% in coordination of care (as documented) at patient's floor/unit and/or counseling patient: Coding Level of Care Code 80368 Subseq Hosp Care Lvl 2 Diagnoses Severe sepsis A41.9; R65.20 Rapid atrial fibrillation I48.91 Hypotension I95.9 ESRD (end stage renal disease) on dialysis N18.6; Z99.2 Thrombocytopenia D69.6 Acute on chronic anemia D64.9 CHF (congestive heart failure) I50.9 Chronic anemia D64.[address] catheter [address] Z78.9 HTN (hypertension) I10 IDDM (insulin dependent diabetes mellitus) Hyperkalemia E87.5 Fever R50.9 Time Spent (min) 35
--- NOTE | 2022-03-27 14:00 | Pharmacy Report ---
Pharmacy Glycemic Short Note 2 - Date of Service March 27, 2022 - Glycemic Short BSG Results (Last 24 hours): 03/26/22 03/26/22 03/27/22 16:13 20:15 06:07 Glucose 103 H POC Glucose 143 H 173 H 03/27/22 03/27/22 07:07 11:08 Glucose POC Glucose 119 H 199 H OUTPATIENT ANTIDIABETIC REGIMEN: * Lantus 12 units SQ HS * Patient's HbA1c = 5.9% today. * However, this result is likely somewhat unreliable in ESRD patients d/t interactions between the A1c analyzing technique and high levels of urea in ESRD, reduced RBC life span, iron deficiency anemia, and EPO administration. HbA1c > 7.5% in ESRD patient may overestimate the extent of hyperglycemia in ESRD patients. ASSESSMENT: 03/27: * BSGs remain reasonable well-controlled, ranging 97-173 mg/dL yesterday, fasting BSG of 119 mg/dL * Received 38 units of insulin yesterday (15 units of basal and 23 units of prandial/correctional bolus) * Will increase Lantus ~20% today and continue current Novolog parameters 03/24: * Patient's BSGs yesterday were [phone] mg/dL and fasting this morning was 127 after 42 units of insulin yesterday (15 of which were basal). Patient did undergo HD yesterday, next session planned for tomorrow. * There was an initial lunchtime BSG >300 however immediate repeat checks confirmed this was likely an erroneous result * Fasting BSG remains acceptable, no change to lantus scale. * Of note patient did receive 15 units of novolog last evening at the HS check, however with scale parameters, dose was intended to be 3 units. * Patient is tolerating a diet. May consider tightening novolog scale slightly. 03/21: * Zoya's BSGs have been relatively well controlled over the last 48 hours: [phone] mg/dL. * Received 37 units of insulin on Monday and 41 units on Monday. * Minimal adjustments to insulin regimen over the weekend (CR tightened from 8 to 7 on Monday morning). * No changes in stressors. * Fasting BSG at 143 mg/dL this AM - controlled. She will have HD today. * No adjustments to insulin regimen required today. PLAN FOR INPATIENT GLYCEMIC CONTROL: * Basal insulin * Lantus 18 units SC HS * Bolus insulin * NovoLog per scale ACHS or Q6hrs while NPO * Goal Range: Low 110 mg/dL - High 140 mg/dL * Correction Factor: 20 mg/dL/unit * Nutritional / Prandial insulin per carb ratio of 1 unit per 7 grams CHO consumed
[2022-03-27] MEDS: ceFAZolin 1000MG 1,000 MG/7.5 ML SYR IV SCH (14:33)
[2022-03-27] MEDS: INSULIN GLARGINE SOLOSTAR 100 UNITS/ML 3 ML PEN SC SCH (20:52)
[2022-03-28 07:06] LABS: Hematocrit (blood only) 25.6 % (37-47); Hemoglobin 8.2 g/dL (12.0-16.0); Mean Corpuscular Hemoglobin 33.9 pg (25-34); Mean Corpuscular Volume 105.8 fL (80-100); Mean Platelet Volume 12.5 fL (7.4-10.4); Platelet Count 95 K/uL (130-400); RDW Coefficient of Variation 19.7 % (11.5-14.5); RDW Standard Deviation 75.1 fL (36.4-46.3); Red Blood Count 2.42 M/uL (4.2-5.4); White Blood Count 5.94 K/uL (4.8-10.8)
[2022-03-28 07:29] LABS: BUN Creatinine Ratio 7.9 (10-20); Calcium 8.3 mg/dl (8.5-10.1); Creatinine Clr Calc Pharmacy 8.3 ml/min; Est GFR (African American) 4.7 ml/min; Est GFR (Non-African American) 4.1 ml/min; Potassium 4.4 mmol/L (3.5-5.1)
[2022-03-28 07:40] LABS: Platelet Estimate Decreased (Normal)
[2022-03-28] MEDS ORDERED: SODIUM CHLORIDE 0.9% 1000ML 1,000 ML IV PRN (07:49)
[2022-03-28] MEDS ORDERED: IRON SUCROSE 100 MG in SYRINGE 0 ML IV SCH (08:00)
[2022-03-28] MEDS: NEPHROCAPS PO SCH (08:11)
[2022-03-28] MEDS: EZETIMIBE 10 MG TABLET PO SCH (08:11)
[2022-03-28] MEDS: PANTOprazole 40 MG TAB PO SCH ×2 (08:11→21:40)
[2022-03-28] MEDS: LIDOCAINE 5% 1 PATCH TD SCH (08:12)
[2022-03-28] MEDS: ATORVASTATIN 20 MG TAB PO SCH (08:12)
[2022-03-28] MEDS: CALCIUM ACETATE 667 MG CAP/TAB PO SCH ×3 (08:12→17:49)
[2022-03-28] MEDS: INSULIN ASPART PER UNIT SC SCH ×4 (08:30→21:37)
[2022-03-28] MEDS ORDERED: EPOETIN ALFA 20,000 UNITS/ML VIAL IV SCH (09:00)
[2022-03-28] MEDS: METOPROLOL SUCC 50MG EXT REL TAB PO SCH (13:24)
[2022-03-28] MEDS: AMIODARONE 200 MG TAB PO SCH ×2 (13:48→17:49)
--- NOTE | 2022-03-28 14:51 | Hospitalist Progress Note ---
Date of Service March 28, 2022 Assessment & Plan (1) Severe sepsis: Plan: Secondary to gram-positive bacteremia, source IJ cath S/p movable of right tunneled IJ for suspected catheter associated bacteremia. Catheter tip growing staph species consistent with blood cultures Right shoulder CT without joint pathology( pt has persistent pain) - Continued on cefazolin 1g IV increased to 2g IV post dialysis sessions -Some clinical improvement following antibiotics US L Arm prosthetic Fistula: Discussed w vascular. 3.6 cm hyperechoic area abutting the vessel without vascular flow which may represent thrombus, fistula without surrounding fluid. ID Consulted. Recommended --> Cefazolin. recommended to proceed with KIKE.f KIKE results likley not to change immediate therapy and surgical candidacy in question for future, hold on KIKE at this time. MSSA 01/10 blood cultures, last positive was 03/17/22~LD 04/14/22, new culture of purulnece 03/25 COVID/bio fire negative CXR without evidence of pneumonia, some pulmonary edema with volume overload. Procalcitonin elevated on admit downtrending Patient pancytopenic. Anaplasmosis smear negative, PCR negative Discussed with ID. Given afebrile and negative cultures did repeat transth oracic on 03/24, defer KIKE at this time. did proceed with dialysis tunneled catheter placement. Recommend extension of antibiotics to 6 weeks. tunneled placement 03/22/22 (2) Rapid atrial fibrillation: Plan: Improved with Amio. Generally worse following dialysis and with low K, cautious repletion with dialysis and renal diet. Rapid A. fib with initial SVT with rates in 200s evening of 03/14 was given digoxin 250 mcg, amiodarone drip and converted. Did return to A. fib, was reloaded with IV after oral and again rate improved. Anticoagulation deferred due to thrombocytopenia and previous epistaxis that was severe, requiring transfusion Patient may need watchman procedure for recurrent A. fib with anemia and thrombocytopenia, however bacteremia must clear chronic diastolic heart failure Echo: EF 30-35% with global hypokinesis. No valvular abnormalities. Mild pulmonary hypertension. Similar to 11/18/2021. Mild right ventricular dilation with mildly reduced systolic function, mild left atrial dilation. (3) Hypotension: Plan: resolved (4) ESRD (end stage renal disease) on dialysis: Plan: -HD dependent for 2 years -continue Phos low tid, Nephrocaps -Cefazolin dose adjusted on dialysis days as above -Fistula with possible clot as noted above, needed temporary line -Continue dialysis per nephro. - Does not receive heparin w dialysis (5) Thrombocytopenia: Plan: -Likely sepsis induced, anticoagulation/heparin deferred due to hx of severe bleeding and thrombocytopenia No clinical bleeding at bedside, some lower extremity purpura (6) Acute on chronic anemia: Plan: hb 9 today, after transfusion (7) CHF (congestive heart failure): Plan: HFrEF/ chronic diastolic heart failrue, stable, as per ECHO 11/2021, EF 35% mange fluid status with HD Metoprolol (8) Chronic anemia: Plan: Continue Protonix Continue iron, B12, folate Patient received erythropoietin this week. transfuse if needed but continue to augment per nephrology's oversight (9) Central venous catheter in place: Plan: tunneled IJ removed and cultured, has left AC endograft that is not functionig well at this time, , so temporary IJ dialysis catheter has been placed 03/22/2022 cultured fluid and blood 03/25 (10) HTN (hypertension): Plan: BP 158/85 today continue home meds (11) IDDM (insulin dependent diabetes mellitus): Plan: - Continue basal/bolus - Pharmacy consulted for DM in ESRD (12) Pruritic rash: Plan: could be due to medication Benadryl prn (13) Hyperkalemia: Plan: -secondary to ESRD improved after kayexolate, IV insulin, calcium gluconate at OSH -Nephrology consult following (14) Fever: Plan: resolved Plan: Patient will need a total of 6 weeks of antibiotics. Case management has been consulted for disposition DVT ppx -SCDs, hold heparin SQ due to thrombocytopenia w/ history of multiple recurrent bleeds, and hemoglobin less than 8 DNR/DNI as per d/w patient Admission and Anticipated Discharge Date Admission Date: March 14, 2022 Subjective Patient seen and examined today, states she feels overall better, however, complains of pruritic rash Review of Systems Review of Systems: All systems reviewed are negative, apart from the ones contained in the history. Physical Exam Physical Exam: The patient is awake, alert and oriented 3, well developed and well nourished, normocephalic and atraumatic, lying in bed and in no acute distress. HEENT--PERRL, EOMI, mucous membranes and oropharynx mildly dry Neck--supple. No JVD. No bruits. Thyroid normal, trachea midline, no adenopathy . Heart--normal S1 and S2. No murmurs, rubs or gallops. Lungs--clear bilaterally, no respiratory distress, no accessory muscle use. Abdomen--normal bowel sounds and soft. Mild epigastric and left sided abdominal pain Extremities--no cyanosis or clubbing. No edema. Dermatologic--normal skin turgor, normal color, no abnormal lymph nodes, no rash. Neurologic--cranial nerves II through XII grossly intact. Rheumatologic--normal range of motion. Psychiatric--normal affect. Results & Data Results & Data ([facility]) Vital Signs (Past 12 Hours) Vital Signs Temp Pulse Pulse Pulse Resp BP BP 03/28/22 12:55 98.4 F 71 105/71 03/28/22 12:40 79 147/61 H 03/28/22 12:20 67 126/70 03/28/22 12:00 65 100/72 03/28/22 11:40 64 99/70 L 03/28/22 11:20 83 124/99 03/28/22 11:00 71 118/58 L 03/28/22 10:40 68 119/53 L 03/28/22 10:20 67 119/53 L 03/28/22 10:00 61 104/40 L 03/28/22 09:40 68 111/58 L 03/28/22 09:14 70 148/59 H 03/28/22 09:10 98.6 F 71 03/28/22 07:52 98.6 F 73 16 119/70 Pulse Ox 03/28/22 12:55 03/28/22 12:40 03/28/22 12:20 03/28/22 12:00 03/28/22 11:40 03/28/22 11:20 03/28/22 11:00 03/28/22 10:40 03/28/22 10:20 03/28/22 10:00 03/28/22 09:40 03/28/22 09:14 03/28/22 09:10 03/28/22 07:52 97 PG Care Time/CCT Total # of Minutes Spent Total Time Spent with Patient: Total time spent is greater than 50% in coordination of care (as documented) at patient's floor/unit and/or counseling patient: Coding Level of Care Code 89636 Subseq Hosp Care Lvl 2 Diagnoses Severe sepsis A41.9; R65.20 Rapid atrial fibrillation I48.91 Hypotension I95.9 ESRD (end stage renal disease) on dialysis N18.6; Z99.2 Thrombocytopenia D69.6 Acute on chronic anemia D64.9 CHF (congestive heart failure) I50.9 Chronic anemia D64.[address] catheter [address] Z78.9 HTN (hypertension) I10 IDDM (insulin dependent diabetes mellitus) Hyperkalemia E87.5 Fever R50.9 Pruritic rash L28.2 Time Spent (min) 35
[2022-03-28] MEDS: ceFAZolin 1000MG 1,000 MG/7.5 ML SYR IV SCH (15:07)
[2022-03-28] MEDS: diphenhydrAMINE 50 MG/ML VIAL IV PRN ×2 (15:54→21:45)
--- NOTE | 2022-03-28 19:13 | Nephrology Progress Note ---
Date of Service March 28, 2022 Assessment & Plan (1) ESRD (end stage renal disease) on dialysis: Plan: 62-year-old female with end-stage renal disease, on chronic hemodialysis, but with noncompliance and normally does 1-2 times per week. Now admitted with catheter-related bacteremia with methicillin-sensitive Staphylococcus aureus bacteremia. End-stage renal disease:Dialysed on 03/21 with @ 2.7L UF. Her blood pressure runs low, probably because of the underlying bacteremia and sepsis, but even on good days, her blood pressure is on the low side.Tolerated 2L UF on 03/25. tolerated 3L UF on 03/28. -HD for 03/30 w/ goal 3-3.5 kilo off as tolerated or sooner as needed. -s/p TDC placement on 03/22 (2) Bacteremia: Plan: Methicillin-sensitive Staphylococcus aureus bacteremia: This is related with dialysis catheter. Unfortunately, she seems quite prone to bacteremia as she has had multiple episodes like this in the last few months. Her dialysis days are tricky because she does not always come for dialysis, which makes antibiotics dosing difficult. On the other hand, with an extremely complicated vascular status with multiple failed arteriovenous fistula and multiple episodes of catheter placement, as much as possible would like to avoid the PICC line. -Abx as per primary team >>>SHE AGREES to do OP dialysis 3X weekly if d/c to this while still on her LT abtx; otherwise would need PICC which she and team wish to avoid Admission and Anticipated Discharge Date Admission Date: March 14, 2022 Subjective some lower bp today on tx but rebounded and acheived full UF of 3 L Goal. feeling/donig well; no sob though still on ; good appetite; workign w/ PT Review of Systems Review of Systems: All systems reviewed & are unremarkable except as noted in Subjective Physical Exam Constitutional: well developed, well nourished, + morbidly obese and cooperative; no acute distress Eyes: EOM intact bilaterally ENMT: Ears: no external ear abnormality Nose: no external nose abnormality Mouth: + dry oral mucous membranes Neck: no nuchal rigidity Respiratory: normal respiratory effort Auscultation: + diminished lung sounds Cardiovascular: Rate/Rhythm: regular rate and regular rhythm Extremities: + edema (trace edema at most) Gastrointestinal (Abdomen): Inspection/Auscultation: normal bowel sounds Percussion/Palpation: abdomen soft; abdomen nontender Musculoskeletal: Extremities: strength 5/5 throughout Skin: no rashes, warm and dry Psychiatric: Orientation: oriented x 3 Results & Data ([facility]) Vital Signs (Past 12 Hours) Vital Signs Temp Pulse Pulse Pulse Resp BP BP 03/28/22 12:55 36.9 C 71 105/71 03/28/22 12:40 79 147/61 H 03/28/22 12:20 67 126/70 03/28/22 12:00 65 100/72 03/28/22 11:40 64 99/70 L 03/28/22 11:20 83 124/99 03/28/22 11:00 71 118/58 L 03/28/22 10:40 68 119/53 L 03/28/22 10:20 67 119/53 L 03/28/22 10:00 61 104/40 L 03/28/22 09:40 68 111/58 L 03/28/22 09:14 70 148/59 H 03/28/22 09:10 37 C 71 03/28/22 07:52 37.0 C 73 16 119/70 Pulse Ox 03/28/22 12:55 03/28/22 12:40 03/28/22 12:20 03/28/22 12:00 03/28/22 11:40 03/28/22 11:20 03/28/22 11:00 03/28/22 10:40 03/28/22 10:20 03/28/22 10:00 03/28/22 09:40 03/28/22 09:14 03/28/22 09:10 03/28/22 07:52 97 Laboratory Results 03/28/22 06:33 03/28/22 06:33
[2022-03-28] MEDS: INSULIN GLARGINE SOLOSTAR 100 UNITS/ML 3 ML PEN SC SCH (21:40)
[2022-03-29] MEDS: ACETAMINOPHEN 325 MG TAB PO PRN (03:32)
[2022-03-29] MEDS: AMIODARONE 200 MG TAB PO SCH ×2 (07:46→16:45)
[2022-03-29] MEDS: CALCIUM ACETATE 667 MG CAP/TAB PO SCH ×3 (07:46→16:45)
[2022-03-29] MEDS: PANTOprazole 40 MG TAB PO SCH ×2 (07:46→20:14)
[2022-03-29] MEDS: ATORVASTATIN 20 MG TAB PO SCH (07:46)
[2022-03-29] MEDS: NEPHROCAPS PO SCH (07:46)
[2022-03-29] MEDS: EZETIMIBE 10 MG TABLET PO SCH (07:47)
[2022-03-29] MEDS: LIDOCAINE 5% 1 PATCH TD SCH (07:47)
[2022-03-29] MEDS: METOPROLOL SUCC 50MG EXT REL TAB PO SCH (07:47)
[2022-03-29 08:00] LABS: Hematocrit (blood only) 25.4 % (37-47); Mean Corpuscular Hemoglobin 33.3 pg (25-34); Mean Corpuscular Hgb Conc 31.5 g/dL (32-36); Mean Corpuscular Volume 105.8 fL (80-100); RDW Coefficient of Variation 19.7 % (11.5-14.5); RDW Standard Deviation 72.9 fL (36.4-46.3); White Blood Count 5.54 K/uL (4.8-10.8)
[2022-03-29 08:28] LABS: BUN Creatinine Ratio 7.1 (10-20); Calcium 8.2 mg/dl (8.5-10.1); Est GFR (African American) 6.6 ml/min; Est GFR (Non-African American) 5.7 ml/min; Mean Platelet Volume 11.7 fL (7.4-10.4); Platelet Count 98 K/uL (130-400)
[2022-03-29 08:29] LABS: Platelet Estimate Decreased (Normal)
[2022-03-29] MEDS: INSULIN ASPART PER UNIT SC SCH ×4 (08:49→22:31)
--- NOTE | 2022-03-29 13:29 | Hospitalist Progress Note ---
Date of Service March 29, 2022 Assessment & Plan (1) Severe sepsis: Plan: Now resolved, following antibiotics Secondary to gram-positive bacteremia, source IJ cath S/p movable of right tunneled IJ for suspected catheter associated bacteremia. Catheter tip growing staph species consistent with blood cultures Right shoulder CT without joint pathology( pt has persistent pain) - Continued on cefazolin 1g IV increased to 2g IV post dialysis sessions US L Arm prosthetic Fistula: Discussed w vascular. 3.6 cm hyperechoic area abutting the vessel without vascular flow which may represent thrombus, fistula without surrounding fluid. ID Consulted. Recommended --> Cefazolin. recommended to proceed with KIKE.f KIKE results likley not to change immediate therapy and surgical candidacy in question for future, hold on KIKE at this time. MSSA / blood cultures, last positive was 03/17/22~LD 04/14/22, new culture of purulnece 03/25 COVID/bio fire negative CXR without evidence of pneumonia, some pulmonary edema with volume overload. Procalcitonin elevated on admit downtrending Patient pancytopenic. Anaplasmosis smear negative, PCR negative Discussed with ID. Given afebrile and negative cultures did repeat transthoracic on 03/24, defer KIKE at this time. did proceed with dialysis tunneled catheter placement. Recommend extension of antibiotics to 6 weeks. tunneled placement 03/22/22 (2) Rapid atrial fibrillation: Plan: Improved with Amio. Generally worse following dialysis and with low K, cautious repletion with dialysis and renal diet. was given digoxin 250 mcg, amiodarone drip and converted. Did return to A. fib, was reloaded with IV after oral and again rate improved. Anticoagulation deferred due to thrombocytopenia and previous epistaxis that was severe, requiring transfusion Patient may need watchman procedure for recurrent A. fib with anemia and thrombocytopenia, however bacteremia must clear chronic diastolic heart failure Echo: EF 30-35% with global hypokinesis. No valvular abnormalities. Mild pulmonary hypertension. Similar to 11/18/2021. Mild right ventricular dilation with mildly reduced systolic function, mild left atrial dilation. (3) Hypotension: Plan: resolved (4) ESRD (end stage renal disease) on dialysis: Plan: -HD dependent for 2 years -continue Phos low tid, Nephrocaps -Cefazolin dose adjusted on dialysis days as above -Fistula with possible clot as noted above, needed temporary line -Continue dialysis per nephro. - Does not receive heparin w dialysis (5) Thrombocytopenia: Plan: -Likely sepsis induced, anticoagulation/heparin deferred due to hx of severe bleeding and thrombocytopenia No clinical bleeding at bedside, some lower extremity purpura (6) Acute on chronic anemia: Plan: hb 9 today, after transfusion (7) CHF (congestive heart failure): Plan: HFrEF/ chronic diastolic heart failrue, stable, as per ECHO 11/2021, EF 35% mange fluid status with HD Metoprolol (8) Chronic anemia: Plan: Continue Protonix Continue iron, B12, folate Patient received erythropoietin this week. transfuse if needed but continue to augment per nephrology's oversight (9) Central venous catheter in place: Plan: tunneled IJ removed and cultured, has left AC endograft that is not functionig well at this time, , so temporary IJ dialysis catheter has been placed 03/22/2022 cultured fluid and blood 03/25 (10) HTN (hypertension): Plan: BP wnl continue home meds (11) IDDM (insulin dependent diabetes mellitus): Plan: - Continue basal/bolus - Pharmacy consulted for DM in ESRD (12) Pruritic rash: Plan: could be due to medication Benadryl prn (13) Hyperkalemia: Plan: -secondary to ESRD improved after kayexolate, IV insulin, calcium gluconate at OSH -Nephrology consult following (14) Fever: Plan: resolved Plan: Patient will need a total of 6 weeks of antibiotics. Case management has been consulted for disposition DVT ppx -SCDs, hold heparin SQ due to thrombocytopenia w/ history of multiple recurrent bleeds, and hemoglobin less than 8 DNR/DNI as per d/w patient Admission and Anticipated Discharge Date Admission Date: March 14, 2022 Subjective patient seen and examined, no new complaints Review of Systems Review of Systems: All systems reviewed are negative, apart from the ones contained in the history. Physical Exam Physical Exam: The patient is awake, alert and oriented 3, well developed and well nourished, normocephalic and atraumatic, lying in bed and in no acute distress. HEENT--PERRL, EOMI, mucous membranes and oropharynx mildly dry Neck--supple. No JVD. No bruits. Thyroid normal, trachea midline, no adenopathy. Heart--normal S1 and S2. No murmurs, rubs or gallops. Lungs--clear bilaterally, no respiratory distress, no accessory muscle use. Abdomen--normal bowel sounds and soft. Mild epigastric and left sided abdominal pain Extremities--no cyanosis or clubbing. No edema. Dermatologic--normal skin turgor, normal color, no abnormal lymph nodes, no ra sh. Neurologic--cranial nerves II through XII grossly intact. Rheumatologic--normal range of motion. Psychiatric--normal affect. Results & Data Results & Data ([facility]) Vital Signs (Past 12 Hours) Vital Signs Temp Pulse Resp BP Pulse Ox 03/29/22 07:58 98.2 F 73 16 131/75 95 PG Care Time/CCT Total # of Minutes Spent Total Time Spent with Patient: Total time spent is greater than 50% in coordination of care (as documented) at patient's floor/unit and/or counseling patient: Coding Level of Care Code 69859 Subseq Hosp Care Lvl 2 Diagnoses Severe sepsis A41.9; R65.20 Rapid atrial fibrillation I48.91 Hypotension I95.9 ESRD (end stage renal disease) on dialysis N18.6; Z99.2 Thrombocytopenia D69.6 Acute on chronic anemia D64.9 CHF (congestive heart failure) I50.9 Chronic anemia D64.[address] catheter [address] Z78.9 HTN (hypertension) I10 IDDM (insulin dependent diabetes mellitus) Pruritic rash L28.2 Hyperkalemia E87.5 Fever R50.9 Time Spent (min) 35
[2022-03-29] MEDS: ceFAZolin 1000MG 1,000 MG/7.5 ML SYR IV SCH (14:38)
[2022-03-29] MEDS: diphenhydrAMINE 50 MG/ML VIAL IV PRN ×2 (14:39→22:32)
--- NOTE | 2022-03-29 15:14 | Nephrology Progress Note ---
Date of Service March 29, 2022 Assessment & Plan (1) ESRD (end stage renal disease) on dialysis: Plan: 62-year-old female with end-stage renal disease, on chronic hemodialysis, but with noncompliance and normally does 1-2 times per week. Now admitted with catheter-related bacteremia with methicillin-sensitive Staphylococcus aureus bacteremia. End-stage renal disease:Dialysed on 03/21 with @ 2.7L UF. Her blood pressure runs low, probably because of the underlying bacteremia and sepsis, but even on good days, her blood pressure is on the low side.Tolerated 2L UF on 03/25. tolerated 3L UF on 03/28. -HD for 03/30 w/ goal 3-3.5 kilo off as tolerated -s/p TDC placement on 03/22 (2) Bacteremia: Plan: Methicillin-sensitive Staphylococcus aureus bacteremia: This is related with dialysis catheter. Unfortunately, she seems quite prone to bacteremia as she has had multiple episodes like this in the last few months. Her dialysis days are tricky because she does not always come for dialysis, which makes antibiotics dosing difficult. On the other hand, with an extremely complicated vascular status with multiple failed arteriovenous fistula and multiple episodes of catheter placement, as much as possible would like to avoid the PICC line. -Abx as per primary team -clinically improving >>>SHE AGREES to do OP dialysis 3X weekly if d/c to this while still on her LT abtx; otherwise would need PICC which she and team wish to avoid Admission and Anticipated Discharge Date Admission Date: March 14, 2022 Subjective Doing well-reports feeling better today. Denies any SOB -on room air. Reports mild rash to lower ext noted with start of antibiotics. Rash is non bothersome with use of Benadryl. Up and moving around room with little assistance from nursing staff. Feeling optimistic about short recovery time and retuning home quickly. Review of Systems Review of Systems: All systems reviewed & are unremarkable except as noted in Subjective Physical Exam Constitutional: well developed, well nourished, + morbidly obese and cooperative; no acute distress Eyes: EOM intact bilaterally ENMT: Ears: no external ear abnormality Nose: no external nose abnormality Neck: no nuchal rigidity Respiratory: normal respiratory effort Auscultation: + diminished lung sounds Cardiovascular: Rate/Rhythm: regular rate and regular rhythm Extremities: + edema (trace edema at most) Gastrointestinal (Abdomen): Inspection/Auscultation: normal bowel sounds Percussion/Palpation: abdomen soft; abdomen nontender Musculoskeletal: Extremities: strength 5/5 throughout Skin: +rash of the left lower ext. Psychiatric: Orientation: oriented x 3 Results & Data ([facility]) Vital Signs (Past 12 Hours) Vital Signs Temp Pulse Resp BP Pulse Ox 03/29/22 07:58 36.8 C 73 16 131/75 95 Laboratory Results 03/29/22 07:38 03/29/22 07:38
[2022-03-29] MEDS ORDERED: INSULIN GLARGINE SOLOSTAR 100 UNITS/ML 3 ML PEN SC SCH (21:00)
[2022-03-30] MEDS ORDERED: HEPARIN SOD (PORCINE) 1000 UNIT/ML IV ONE (06:33)
[2022-03-30] MEDS ORDERED: IRON SUCROSE 100 MG in SYRINGE 0 ML IV ONE (06:33)
[2022-03-30] MEDS ORDERED: SODIUM CHLORIDE 0.9% 1000ML 1,000 ML IV PRN (06:33)
[2022-03-30] MEDS ORDERED: EPOETIN ALFA 20,000 UNITS/ML VIAL IV SCH (06:45)
[2022-03-30 08:22] LABS: BUN Creatinine Ratio 7.8 (10-20); Calcium 8.2 mg/dl (8.5-10.1); Creatinine Clr Calc Pharmacy 8.5 ml/min; Est GFR (African American) 4.9 ml/min; Est GFR (Non-African American) 4.2 ml/min; Potassium 4.2 mmol/L (3.5-5.1)
[2022-03-30] MEDS: AMIODARONE 200 MG TAB PO SCH ×2 (10:02→18:13)
[2022-03-30] MEDS: EZETIMIBE 10 MG TABLET PO SCH (10:03)
[2022-03-30] MEDS: ATORVASTATIN 20 MG TAB PO SCH (10:03)
[2022-03-30] MEDS: PANTOprazole 40 MG TAB PO SCH ×2 (10:04→21:54)
[2022-03-30] MEDS: CALCIUM ACETATE 667 MG CAP/TAB PO SCH ×3 (10:10→18:13)
[2022-03-30] MEDS: LIDOCAINE 5% 1 PATCH TD SCH (10:10)
[2022-03-30] MEDS: NEPHROCAPS PO SCH (10:10)
[2022-03-30] MEDS: INSULIN ASPART PER UNIT SC SCH ×4 (10:12→21:53)
--- NOTE | 2022-03-30 11:27 | Nephrology Progress Note ---
Date of Service March 30, 2022 Assessment & Plan (1) ESRD (end stage renal disease) on dialysis: Plan: 62-year-old female with end-stage renal disease, on chronic hemodialysis, but with noncompliance and normally does 1-2 times per week. Now admitted with catheter-related bacteremia with methicillin-sensitive Staphylococcus aureus bacteremia. End-stage renal disease:Dialysed on 03/21 with @ 2.7L UF. Her blood pressure runs low, probably because of the underlying bacteremia and sepsis, but even on good days, her blood pressure is on the low side.Tolerated 2L UF on 03/25. tolerated 3L UF on 03/28. -HD for 03/30 w/ goal 3-3.5 kilo off as tolerated. -s/p TDC placement on 03/22 (2) Bacteremia: Plan: Methicillin-sensitive Staphylococcus aureus bacteremia: This is related with dialysis catheter. Unfortunately, she seems quite prone to bacteremia as she has had multiple episodes like this in the last few months. Her dialysis days are tricky because she does not always come for dialysis, which makes antibiotics dosing difficult. On the other hand, with an extremely complicated vascular status with multiple failed arteriovenous fistula and multiple episodes of catheter placement, as much as possible would like to avoid the PICC line. -Continue Ancef renally dosed >>>SHE AGREES to do OP dialysis 3X weekly if d/c to this while still on her LT abtx; otherwise would need PICC which she and team wish to avoid Admission and Anticipated Discharge Date Admission Date: March 14, 2022 Subjective Seen for ESRD and bacteremia. She feels better today. No fever or nausea. Review of Systems Review of Systems: All other systems were reviewed and negative except as noted in HPI Physical Exam Physical Exam: General exam: Appears comfortable, no acute distress HEENT: Pupils are equal and reactive to light Neck: No JVD, neck is supple trachea is midline Respiratory system: Clear breath sounds bilaterally. Gastrointestinal: Abdomen is soft, non distended, non tender, bowel sounds are present CVS: Regular rate and rhythm. No murmurs, rubs or gallops Musculoskeletal: No joint or muscle tenderness Extremities: Non tender, no edema, peripheral pulses are present Neuro: Oriented, no tremors, no focal neurological deficits Skin: No rashes Results & Data ([facility]) Vital Signs (Past 12 Hours) Vital Signs Temp Pulse Resp BP Pulse Ox 03/30/22 06:25 37 C 73 18 137/80 95 Laboratory Results 03/30/22 07:13
--- NOTE | 2022-03-30 12:43 | Hospitalist Progress Note ---
Date of Service March 30, 2022 Assessment & Plan (1) Severe sepsis: Plan: Now resolved, following antibiotics Secondary to gram-positive bacteremia, source IJ cath S/p movable of right tunneled IJ for suspected catheter associated bacteremia. Catheter tip growing staph species consistent with blood cultures Right shoulder CT without joint pathology( pt has persistent pain) - Continued on cefazolin 1g IV increased to 2g IV post dialysis sessions US L Arm prosthetic Fistula: Discussed w vascular. 3.6 cm hyperechoic area abutting the vessel without vascular flow which may represent thrombus, fistula without surrounding fluid. ID Consulted. Recommended --> Cefazolin. recommended to proceed with KIKE.f KIKE results likley not to change immediate therapy and surgical candidacy in question for future, hold on KIKE at this time. MSSA / blood cultures, last positive was 03/17/22~LD 04/14/22, new culture of purulnece 03/25 COVID/bio fire negative CXR without evidence of pneumonia, some pulmonary edema with volume overload. Procalcitonin elevated on admit downtrending Patient pancytopenic. Anaplasmosis smear negative, PCR negative Discussed with ID. Given afebrile and negative cultures did repeat transthoracic on 03/24, defer KIKE at this time. did proceed with dialysis tunneled catheter placement. Recommend extension of antibiotics to 6 weeks. tunneled placement 03/22/22 (2) Rapid atrial fibrillation: Plan: Rate is under good control now was given digoxin 250 mcg, amiodarone drip and converted. Did return to A. fib, was reloaded with IV after oral and again rate improved. Anticoagulation deferred due to thrombocytopenia and previous epistaxis that was severe, requiring transfusion Patient may need watchman procedure for recurrent A. fib with anemia and thrombocytopenia, however bacteremia must clear chronic diastolic heart failure Echo: EF 30-35% with global hypokinesis. No valvular abnormalities. Mild pulmonary hypertension. Similar to 11/18/2021. Mild right ventricular dilation with mildly reduced systolic function, mild left atrial dilation. (3) Hypotension: Plan: resolved (4) ESRD (end stage renal disease) on dialysis: Plan: -HD dependent for 2 years -continue Phos low tid, Nephrocaps -Cefazolin dose adjusted on dialysis days as above -Fistula with possible clot as noted above, needed temporary line -Continue dialysis per nephro. - Does not receive heparin w dialysis (5) Thrombocytopenia: Plan: -Likely sepsis induced, anticoagulation/heparin deferred due to hx of severe bleeding and thrombocytopenia No clinical bleeding at bedside, some lower extremity purpura (6) Acute on chronic anemia: Plan: hb stable after transfusion (7) CHF (congestive heart failure): Plan: HFrEF/ chronic diastolic heart failrue, stable, as per ECHO 11/2021, EF 35% mange fluid status with HD Metoprolol (8) Chronic anemia: Plan: Continue Protonix Continue iron, B12, folate Patient received erythropoietin this week. transfuse if needed but continue to augment per nephrology's oversight (9) Central venous catheter in place: Plan: tunneled IJ removed and cultured, has left AC endograft that is not functionig well at this time, , so temporary IJ dialysis catheter has been placed 03/22/2022 cultured fluid and blood 03/25 (10) HTN (hypertension): Plan: BP wnl continue home meds (11) IDDM (insulin dependent diabetes mellitus): Plan: - Continue basal/bolus - Pharmacy consulted for DM in ESRD (12) Pruritic rash: Plan: could be due to medication Benadryl prn (13) Hyperkalemia: Plan: -secondary to ESRD improved after kayexolate, IV insulin, calcium gluconate at OSH -Nephrology consult following (14) Fever: Plan: resolved Plan: Patient will need a total of 6 weeks of antibiotics. Case management has been consulted for placement DVT ppx -SCDs, hold heparin SQ due to thrombocytopenia w/ history of multiple recurrent bleeds, and hemoglobin less than 8 DNR/DNI as per d/w patient Admission and Anticipated Discharge Date Admission Date: March 14, 2022 Subjective patient feels overall better Review of Systems Review of Systems: All systems reviewed are negative, apart from the ones contained in the history. Physical Exam Physical Exam: The patient is awake, alert and oriented 3, well developed and well nourished, normocephalic and atraumatic, lying in bed and in no acute distress. HEENT--PERRL, EOMI, mucous membranes and oropharynx mildly dry Neck--supple. No JVD. No bruits. Thyroid normal, trachea midline, no adenopathy. Heart--normal S1 and S2. No murmurs, rubs or gallops. Lungs--clear bilaterally, no respiratory distress, no accessory muscle use. Abdomen--normal bowel sounds and soft. Mild epigastric and left sided abdominal pain Extremities--no cyanosis or clubbing. No edema. Dermatologic--normal skin turgor, normal color, no abnormal lymph nodes, no rash. Neurologic--cranial nerves II through XII grossly intact. Rheumatologic--normal range of motion. Psychiatric--normal affect. Results & Data Results & Data ([facility]) Vital Signs (Past 12 Hours) Vital Signs Temp Pulse Resp BP Pulse Ox 03/30/22 06:25 98.6 F 73 18 137/80 95 PG Care Time/CCT Total # of Minutes Spent Total Time Spent with Patient: Total time spent is greater than 50% in coordination of care (as documented) at patient's floor/unit and/or counseling patient: Coding Level of Care Code 51911 Subseq Hosp Care Lvl 2 Diagnoses Severe sepsis A41.9; R65.20 Rapid atrial fibrillation I48.91 Hypotension I95.9 ESRD (end stage renal disease) on dialysis N18.6; Z99.2 Thrombocytopenia D69.6 Acute on chronic anemia D64.9 CHF (congestive heart failure) I50.9 Chronic anemia D64.[address] catheter [address] Z78.9 HTN (hypertension) I10 IDDM (insulin dependent diabetes mellitus) Pruritic rash L28.2 Hyperkalemia E87.5 Fever R50.9 Time Spent (min) 35
[2022-03-30] MEDS: HEPARIN SOD (PORCINE) 1000 UNIT/ML IV SCH ×2 (13:56→13:57)
[2022-03-30] MEDS: METOPROLOL SUCC 50MG EXT REL TAB PO SCH (15:51)
[2022-03-30] MEDS: ceFAZolin 1000MG 1,000 MG/7.5 ML SYR IV SCH (16:39)
[2022-03-30] MEDS: INSULIN GLARGINE SOLOSTAR 100 UNITS/ML 3 ML PEN SC SCH (21:53)
[2022-03-31 08:31] LABS: BUN Creatinine Ratio 6.6 (10-20); Calcium 8.3 mg/dl (8.5-10.1); Creatinine Clr Calc Pharmacy 12.8 ml/min; Est GFR (Non-African American) 6.9 ml/min; Potassium 3.9 mmol/L (3.5-5.1)
--- NOTE | 2022-03-31 08:51 | Pharmacy Report ---
Pharmacy Glycemic Short Note 2 - Date of Service March 31, 2022 - Glycemic Short BSG Results (Last 24 hours): 03/30/22 03/30/22 03/30/22 10:08 17:53 21:27 Glucose POC Glucose 204 H 74 146 H 03/31/22 07:42 Glucose 92 POC Glucose OUTPATIENT ANTIDIABETIC REGIMEN: * Lantus 12 units SQ HS * Patient's HbA1c = 5.9% today. * However, this result is likely somewhat unreliable in ESRD patients d/t interactions between the A1c analyzing technique and high levels of urea in ESRD, reduced RBC life span, iron deficiency anemia, and EPO administration. HbA1c > 7.5% in ESRD patient may overestimate the extent of hyperglycemia in ESRD patients. ASSESSMENT: 03/31: * Patient received total of 30 units of insulin yesterday, of which 12 units were basal * Fasting BSG 92 mg/dL - will continue with 12 units of basal for now (recent dose decrease ~20%, last evening first day of 12 units) * BSGs throughout the day relatively stable - continue same CF/CR for now 03/27: * BSGs remain reasonable well-controlled, ranging 97-173 mg/dL yesterday, fasting BSG of 119 mg/dL * Received 38 units of insulin yesterday (15 units of basal and 23 units of prandial/correctional bolus) * Will increase Lantus ~20% today and continue current Novolog parameters 03/24: * Patient's BSGs yesterday were [phone] mg/dL and fasting this morning was 127 after 42 units of insulin yesterday (15 of which were basal). Patient did undergo HD yesterday, next session planned for tomorrow. * There was an initial lunchtime BSG >300 however immediate repeat checks confirmed this was likely an erroneous result * Fasting BSG remains acceptable, no change to lantus scale. * Of note patient did receive 15 units of novolog last evening at the HS check, however with scale parameters, dose was intended to be 3 units. * Patient is tolerating a diet. May consider tightening novolog scale slightly. 03/21: * Zoya's BSGs have been relatively well controlled over the last 48 hours: [id number] mg/dL. * Received 37 units of insulin on Monday and 41 units on Monday. * Minimal adjustments to insulin regimen over the weekend (CR tightened from 8 to 7 on Monday morning). * No changes in stressors. * Fasting BSG at 143 mg/dL this AM - controlled. She will have HD today. * No adjustments to insulin regimen required today. PLAN FOR INPATIENT GLYCEMIC CONTROL: * Basal insulin * Lantus 12 units HS * Bolus insulin * NovoLog per scale ACHS or Q6hrs while NPO * Goal Range: Low 110 mg/dL - High 140 mg/dL * Correction Factor: 25 mg/dL/unit * Nutritional / Prandial insulin per carb ratio of 1 unit per 7 grams CHO consumed
[2022-03-31] MEDS: INSULIN ASPART PER UNIT SC SCH ×4 (10:04→21:09)
[2022-03-31 10:08] LABS: Appearance Urine Turbid (Clear); Bacteria Urine Automated 1+ (Negative); Bilirubin Urine Negative (Negative); Blood Urine 2+ (Negative); Color Urine Dark Yellow; Epithelial Cell Urine Auto >30 /lpf (0-5); Glucose Urine UA Negative (Negative); Ketones Urine Trace (Negative); Leukocyte Esterase Urine 2+ (Negative); Nitrite Urine Negative (Negative); Protein Urine 3+ (Negative); Specific Gravity Urine 1.017 (1.000-1.030); Urobilinogen Urine Negative (Negative); WBC Urine Automated >30 /hpf (0-5); pH Urine 5.5 (4.5-7.5)
[2022-03-31] MEDS: EZETIMIBE 10 MG TABLET PO SCH (10:12)
[2022-03-31] MEDS: AMIODARONE 200 MG TAB PO SCH ×2 (10:12→17:41)
[2022-03-31] MEDS: ATORVASTATIN 20 MG TAB PO SCH (10:12)
[2022-03-31] MEDS: CALCIUM ACETATE 667 MG CAP/TAB PO SCH ×3 (10:12→17:41)
[2022-03-31] MEDS: LIDOCAINE 5% 1 PATCH TD SCH (10:13)
[2022-03-31] MEDS: NEPHROCAPS PO SCH (10:13)
[2022-03-31] MEDS: PANTOprazole 40 MG TAB PO SCH ×2 (10:13→20:32)
[2022-03-31 10:33] LABS: RBC Urine Automated >30 /hpf (0-4)
--- NOTE | 2022-03-31 10:57 | Nephrology Progress Note ---
Date of Service March 31, 2022 Assessment & Plan (1) ESRD (end stage renal disease) on dialysis: Plan: 62-year-old female with end-stage renal disease, on chronic hemodialysis, but with noncompliance and normally does 1-2 times per week. Now admitted with catheter-related bacteremia with methicillin-sensitive Staphylococcus aureus bacteremia. End-stage renal disease:Dialysed on 03/21 with @ 2.7L UF. Her blood pressure runs low, probably because of the underlying bacteremia and sepsis, but even on good days, her blood pressure is on the low side.Tolerated 2L UF on 03/25. tolerated 3L UF on 03/28. -Patient had HD on 03/30 w/ goal 3 kilo off as tolerated. -s/p TDC placement on 03/22 -Next dialysis will be tomorrow -From renal standpoint patient can be discharged to rehab (2) Bacteremia: Plan: Methicillin-sensitive Staphylococcus aureus bacteremia: This is related with dialysis catheter. Unfortunately, she seems quite prone to bacteremia as she has had multiple episodes like this in the last few months. Her dialysis days are tricky because she does not always come for dialysis, which makes antibiotics dosing difficult. On the other hand, with an extremely complicated vascular status with multiple failed arteriovenous fistula and multiple episodes of catheter placement, as much as possible would like to avoid the PICC line. -Continue Ancef renally dosed >>>SHE AGREES to do OP dialysis 3X weekly if d/c to this while still on her LT abtx; otherwise would need PICC which she and team wish to avoid Admission and Anticipated Discharge Date Admission Date: March 14, 2022 Subjective Seen for ESRD. She feels better today. No shortness of breath. She is ambulating with a walker Review of Systems Review of Systems: All other systems were reviewed and negative except as noted in HPI Physical Exam Physical Exam: General exam: Appears comfortable, no acute distress HEENT: Pupils are equal and reactive to light Neck: No JVD, neck is supple trachea is midline Respiratory system: Clear breath sounds bilaterally. Gastrointestinal: Abdomen is soft, non distended, non tender, bowel sounds are present CVS: Regular rate and rhythm. No murmurs, rubs or gallops Musculoskeletal: No joint or muscle tenderness Extremities: Non tender, no edema, peripheral pulses are present Neuro: Oriented, no tremors, no focal neurological deficits Skin: No rashes Results & Data ([facility]) Vital Signs (Past 12 Hours) Vital Signs Temp Pulse Pulse Resp BP BP Pulse Ox 03/31/22 07:33 37 C 77 20 155/69 H 93 03/31/22 00:10 36.7 C 85 18 108/56 L 91 Laboratory Results 03/31/22 07:42
--- NOTE | 2022-03-31 11:59 | Hospitalist Progress Note ---
Date of Service March 31, 2022 Assessment & Plan (1) ESRD (end stage renal disease) on dialysis: Plan: -HD dependent for 2 years -continue Phos low tid, Nephrocaps -Cefazolin dose adjusted on dialysis days as above -Fistula with possible clot as noted above, needed temporary line -Continue dialysis per nephro. - Does not receive heparin w dialysis (2) Severe sepsis: Plan: Now resolved, following antibiotics Secondary to gram-positive bacteremia, source IJ cath S/p movable of right tunneled IJ for suspected catheter associated bacteremia. Catheter tip growing staph species consistent with blood cultures Right shoulder CT without joint pathology( pt has persistent pain) - Continued on cefazolin 1g IV increased to 2g IV post dialysis sessions US L Arm prosthetic Fistula: Discussed w vascular. 3.6 cm hyperechoic area abutting the vessel without vascular flow which may represent thrombus, fistula without surrounding fluid. ID Consulted. Recommended --> Cefazolin. recommended to proceed with KIKE.f KIKE results likley not to change immediate therapy and surgical candidacy in question for future, hold on KIKE at this time. MSSA / blood cultures, last positive was 03/17/22~LD 04/14/22, new culture of purulnece 03/25 COVID/bio fire negative CXR without evidence of pneumonia, some pulmonary edema with volume overload. Procalcitonin elevated on admit downtrending Patient pancytopenic. Anaplasmosis smear negative, PCR negative Discussed with ID. Given afebrile and negative cultures did repeat transthoracic on 03/24, defer KIKE at this time. did proceed with dialysis tunneled catheter placement. Recommend extension of antibiotics to 6 weeks. tunneled placement 03/22/22 (3) Rapid atrial fibrillation: Plan: Rate is under good control now was given digoxin 250 mcg, amiodarone drip and converted. Did return to A. fib, was reloaded with IV after oral and again rate improved. Anticoagulation deferred due to thrombocytopenia and previous epistaxis that was severe, requiring transfusion Patient may need watchman procedure for recurrent A. fib with anemia and thrombocytopenia, however bacteremia must clear chronic diastolic heart failure Echo: EF 30-35% with global hypokinesis. No valvular abnormalities. Mild pulmonary hypertension. Similar to 11/18/2021. Mild right ventricular dilation with mildly reduced systolic function, mild left atrial dilation. (4) Hypotension: Plan: resolved (5) Thrombocytopenia: Plan: -Likely sepsis induced, anticoagulation/heparin deferred due to hx of severe bleeding and thrombocytopenia No clinical bleeding at bedside, some lower extremity purpura (6) Acute on chronic anemia: Plan: hb stable after transfusion (7) CHF (congestive heart failure): Plan: HFrEF/ chronic diastolic heart failrue, stable, as per ECHO 11/2021, EF 35% mange fluid status with HD Metoprolol (8) Chronic anemia: Plan: Continue Protonix Continue iron, B12, folate Patient received erythropoietin this week. transfuse if needed but continue to augment per nephrology's oversight (9) Central venous catheter in place: Plan: tunneled IJ removed and cultured, has left AC endograft that is not functionig well at this time, , so temporary IJ dialysis catheter has been placed 03/22/2022 cultured fluid and blood 03/25 (10) HTN (hypertension): Plan: BP wnl continue home meds (11) IDDM (insulin dependent diabetes mellitus): Plan: - Continue basal/bolus - Pharmacy consulted for DM in ESRD (12) Pruritic rash: Plan: could be due to medication Benadryl prn (13) Hyperkalemia: Plan: resolved (14) Fever: Plan: resolved Plan: Patient will need a total of 6 weeks of antibiotics. Case management has been consulted for placement. Awaiting pre auth DVT ppx -SCDs, hold heparin SQ due to thrombocytopenia w/ history of multiple recurrent bleeds, and hemoglobin less than 8 DNR/DNI as per d/w patient Admission and Anticipated Discharge Date Admission Date: March 14, 2022 Subjective patient seen and examined today, sitting up in the chair, no new complaints Review of Systems Review of Systems: All systems reviewed are negative, apart from the ones contained in the history. Physical Exam Physical Exam: The patient is awake, alert and oriented 3, well developed and well nourished, normocephalic and atraumatic, lying in bed and in no acute distress. HEENT--PERRL, EOMI, mucous membranes and oropharynx mildly dry Neck--supple. No JVD. No bruits. Thyroid normal, trachea midline, no adenopathy. Heart--normal S1 and S2. No murmurs, rubs or gallops. Lungs--clear bilaterally, no respiratory distress, no accessory muscle use. Abdomen--normal bowel sounds and soft. Mild epigastric and left sided abdominal pain Extremities--no cyanosis or clubbing. No edema. Dermatologic--normal skin turgor, normal color, no abnormal lymph nodes, no rash. Neurologic--cranial nerves II through XII grossly intact. Rheumatologic--normal range of motion. Psychiatric--normal affect. Results & Data Results & Data ([facility]) Vital Signs (Past 12 Hours) Vital Signs Temp Pulse Pulse Resp BP BP Pulse Ox 03/31/22 07:33 98.6 F 77 20 155/69 H 93 03/31/22 00:10 98.1 F 85 18 108/56 L 91 PG Care Time/CCT Total # of Minutes Spent Total Time Spent with Patient: Total time spent is greater than 50% in coordination of care (as documented) at patient's floor/unit and/or counseling patient: Coding Level of Care Code 08308 Subseq Hosp Care Lvl 2 Diagnoses Severe sepsis A41.9; R65.20 Rapid atrial fibrillation I48.91 Hypotension I95.9 ESRD (end stage renal disease) on dialysis N18.6; Z99.2 Thrombocytopenia D69.6 Acute on chronic anemia D64.9 CHF (congestive heart failure) I50.9 Chronic anemia D64.9 [address] venous catheter in place Z78.9 HTN (hypertension) I10 IDDM (insulin dependent diabetes mellitus) Pruritic rash L28.2 Hyperkalemia E87.5 Fever R50.9 Time Spent (min) 35
[2022-03-31] MEDS: METOPROLOL SUCC 50MG EXT REL TAB PO SCH (12:16)
[2022-03-31] MEDS: diphenhydrAMINE 50 MG/ML VIAL IV PRN (13:19)
[2022-03-31] MEDS: ceFAZolin 1000MG 1,000 MG/7.5 ML SYR IV SCH (15:32)
[2022-03-31] MEDS: INSULIN GLARGINE SOLOSTAR 100 UNITS/ML 3 ML PEN SC SCH (21:09)
[2022-03-31] MEDS: ACETAMINOPHEN 325 MG TAB PO PRN (23:19)
[2022-04-01 05:54] LABS: Hematocrit (blood only) 25.4 % (37-47); Hemoglobin 7.9 g/dL (12.0-16.0); Mean Corpuscular Hemoglobin 33.2 pg (25-34); Mean Corpuscular Hgb Conc 31.1 g/dL (32-36); Mean Corpuscular Volume 106.7 fL (80-100); Mean Platelet Volume 11.1 fL (7.4-10.4); Platelet Count 121 K/uL (130-400); RDW Coefficient of Variation 19.5 % (11.5-14.5); RDW Standard Deviation 74.3 fL (36.4-46.3); Red Blood Count 2.38 M/uL (4.2-5.4); White Blood Count 4.58 K/uL (4.8-10.8)
[2022-04-01 06:12] LABS: BUN Creatinine Ratio 7.6 (10-20); Calcium 8.2 mg/dl (8.5-10.1); Creatinine Clr Calc Pharmacy 9.4 ml/min; Est GFR (African American) 5.6 ml/min; Est GFR (Non-African American) 4.8 ml/min; Potassium 4.2 mmol/L (3.5-5.1)
[2022-04-01] MEDS: AMIODARONE 200 MG TAB PO SCH ×2 (09:00→17:39)
[2022-04-01] MEDS: INSULIN ASPART PER UNIT SC SCH ×5 (09:17→21:41)
[2022-04-01] MEDS: CALCIUM ACETATE 667 MG CAP/TAB PO SCH ×3 (09:23→17:39)
[2022-04-01] MEDS: LIDOCAINE 5% 1 PATCH TD SCH (09:24)
[2022-04-01] MEDS ORDERED: EPOETIN ALFA 10,000 UNITS/ML VIAL IV ONE (10:19)
[2022-04-01] MEDS ORDERED: HEPARIN SOD (PORCINE) 1000 UNIT/ML IV SCH (10:30)
--- NOTE | 2022-04-01 12:04 | Hospitalist Progress Note ---
Date of Service April 01, 2022 Assessment & Plan (1) ESRD (end stage renal disease) on dialysis: Plan: -HD dependent for 2 years -continue Phos low tid, Nephrocaps -Cefazolin dose adjusted on dialysis days as above -Fistula with possible clot as noted above, needed temporary line -Continue dialysis per nephro. - Does not receive heparin w dialysis (2) Severe sepsis: Plan: Now resolved, following antibiotics Secondary to gram-positive bacteremia, source IJ cath S/p movable of right tunneled IJ for suspected catheter associated bacteremia. Catheter tip growing staph species consistent with blood cultures Right shoulder CT without joint pathology( pt has persistent pain) - Continued on cefazolin 1g IV increased to 2g IV post dialysis sessions (patient will need a total of 6 weeks per ID) US L Arm prosthetic Fistula: Discussed w vascular. 3.6 cm hyperechoic area abutting the vessel without vascular flow which may represent thrombus, fistula without surrounding fluid. ID Consulted. Recommended --> Cefazolin. recommended to proceed with KIKE.f KIKE results likley not to change immediate therapy and surgical candidacy in question for future, hold on KIKE at this time. MSSA / blood cultures, last positive was 03/17/22~LD 04/14/22, new culture of purulnece 03/25 COVID/bio fire negative CXR without evidence of pneumonia, some pulmonary edema with volume overload. Procalcitonin elevated on admit downtrending Patient pancytopenic. Anaplasmosis smear negative, PCR negative Discussed with ID. Given afebrile and negative cultures did repeat tra nsthoracic on 03/24, defer KIKE at this time. did proceed with dialysis tunneled catheter placement. Recommend extension of antibiotics to 6 weeks. tunneled placement 03/22/22 (3) Rapid atrial fibrillation: Plan: Rate is under good control now was given digoxin 250 mcg, amiodarone drip and converted. Did return to A. fib, was reloaded with IV after oral and again rate improved. Anticoagulation deferred due to thrombocytopenia and previous epistaxis that was severe, requiring transfusion Patient may need watchman procedure for recurrent A. fib with anemia and thrombocytopenia, however bacteremia must clear chronic diastolic heart failure Echo: EF 30-35% with global hypokinesis. No valvular abnormalities. Mild pulmonary hypertension. Similar to 11/18/2021. Mild right ventricular dilation with mildly reduced systolic function, mild left atrial dilation. (4) Hypotension: Plan: resolved (5) Thrombocytopenia: Plan: -Likely sepsis induced, anticoagulation/heparin deferred due to hx of severe bleeding and thrombocytopenia No clinical bleeding at bedside, some lower extremity purpura (6) Acute on chronic anemia: Plan: hb stable after transfusion (7) CHF (congestive heart failure): Plan: HFrEF/ chronic diastolic heart failrue, stable, as per ECHO 11/2021, EF 35% mange fluid status with HD Metoprolol (8) Chronic anemia: Plan: Continue Protonix Continue iron, B12, folate Patient received erythropoietin this week. transfuse if needed but continue to augment per nephrology's oversight (9) Central venous catheter in place: Plan: tunneled IJ removed and cultured, has left AC endograft that is not functionig well at this time, , so temporary IJ dialysis catheter has been placed 03/22/2022 cultured fluid and blood 03/25 (10) HTN (hypertension): Plan: BP wnl continue home meds (11) IDDM (insulin dependent diabetes mellitus): Plan: - Continue basal/bolus - Pharmacy consulted for DM in ESRD (12) Pruritic rash: Plan: could be due to medication Benadryl prn (13) Hyperkalemia: Plan: resolved (14) Fever: Plan: resolved Plan: Patient will need a total of 6 weeks of antibiotics. Case management has been consulted for placement. Awaiting pre auth DVT ppx -SCDs, hold heparin SQ due to thrombocytopenia w/ history of multiple recurrent bleeds, and hemoglobin less than 8 DNR/DNI as per d/w patient Admission and Anticipated Discharge Date Admission Date: March 14, 2022 Subjective patient seen and examined today, sitting up in the chair, no new complaints Review of Systems Review of Systems: All systems reviewed are negative, apart from the ones contained in the history. Physical Exam Physical Exam: The patient is awake, alert and oriented 3, well developed and well nourished, normocephalic and atraumatic, lying in bed and in no acute dis tress. HEENT--PERRL, EOMI, mucous membranes and oropharynx mildly dry Neck--supple. No JVD. No bruits. Thyroid normal, trachea midline, no adenopathy. Heart--normal S1 and S2. No murmurs, rubs or gallops. Lungs--clear bilaterally, no respiratory distress, no accessory muscle use. Abdomen--normal bowel sounds and soft. Mild epigastric and left sided abdominal pain Extremities--no cyanosis or clubbing. No edema. Dermatologic--normal skin turgor, normal color, no abnormal lymph nodes, no rash. Neurologic--cranial nerves II through XII grossly intact. Rheumatologic--normal range of motion. Psychiatric--normal affect. Results & Data Results & Data ([facility]) Vital Signs (Past 12 Hours) Vital Signs Temp Pulse Resp BP Pulse Ox 04/01/22 07:30 98.1 F 74 20 120/79 97 PG Care Time/CCT Total # of Minutes Spent Total Time Spent with Patient: Total time spent is greater than 50% in coordination of care (as documented) at patient's floor/unit and/or counseling patient: Coding Level of Care Code 48729 Subseq Hosp Care Lvl 2 Diagnoses ESRD (end stage renal disease) on dialysis N18.6; Z99.2 Severe sepsis A41.9; R65.20 Rapid atrial fibrillation I48.91 Hypotension I95.9 Thrombocytopenia D69.6 Acute on chronic anemia D64.9 CHF (congestive heart failure) I50.9 Chronic anemia D64.[address] catheter [address] Z78.9 HTN (hypertension) I10 IDDM (insulin dependent diabetes mellitus) Pruritic rash L28.2 Hyperkalemia E87.5 Fever R50.9 Time Spent (min) 35
--- NOTE | 2022-04-01 13:10 | Nephrology Progress Note ---
Date of Service April 01, 2022 Assessment & Plan (1) ESRD (end stage renal disease) on dialysis: Plan: 62-year-old female with end-stage renal disease, on chronic hemodialysis, but with noncompliance and normally does 1-2 times per week. Now admitted with catheter-related bacteremia with methicillin-sensitive Staphylococcus aureus bacteremia. End-stage renal disease:Dialysed on 03/21 with @ 2.7L UF. Her blood pressure runs low, probably because of the underlying bacteremia and sepsis, but even on good days, her blood pressure is on the low side.Tolerated 2L UF on 03/25. tolerated 3L UF on 03/28. -Patient had HD on 03/30 w/ goal 3 kilo off as tolerated. -s/p TDC placement on 03/22 -Patient tolerating dialysis well today -From renal standpoint patient can be discharged to rehab (2) Bacteremia: Plan: Methicillin-sensitive Staphylococcus aureus bacteremia: This is related with dialysis catheter. Unfortunately, she seems quite prone to bacteremia as she has had multiple episodes like this in the last few months. Her dialysis days are tricky because she does not always come for dialysis, which makes antibiotics dosing difficult. On the other hand, with an extremely complicated vascular status with multiple failed arteriovenous fistula and multiple episodes of catheter placement, as much as possible would like to avoid the PICC line. -Continue Ancef renally dosed. Ancef can be given 3 times a week on dialysis days at the end of dialysis. Patient has to be agreeable to doing dialysis 3 times a week. There is no need for PICC line insertion. Admission and Anticipated Discharge Date Admission Date: March 14, 2022 Subjective Patient was seen and examined while on dialysis. She denies any shortness of breath or leg swelling. Review of Systems Review of Systems: All other systems were reviewed and negative except as noted in HPI Physical Exam Physical Exam: General exam: Appears comfortable, no acute distress HEENT: Pupils are equal and reactive to light Neck: No JVD, neck is supple trachea is midline Respiratory system: Clear breath sounds bilaterally. Gastrointestinal: Abdomen is soft, non distended, non tender, bowel sounds are present CVS: Regular rate and rhythm. No murmurs, rubs or gallops Musculoskeletal: No joint or muscle tenderness Extremities: Non tender, no edema, peripheral pulses are present Neuro: Oriented, no tremors, no focal neurological deficits Skin: No rashes Results & Data ([facility]) Vital Signs (Past 12 Hours) Vital Signs Temp Pulse Pulse Resp BP Pulse Ox 04/01/22 11:06 36.8 C 77 04/01/22 07:30 36.7 C 74 20 120/79 97 Laboratory Results 04/01/22 05:29 04/01/22 05:29 WBC 4.58 L RBC 2.38 L MCV 106.7 H MCH 33.2 MCHC 31.1 L RDW Std Deviation 74.3 H RDW Coeff of Wiley 19.5 H Plt Count 121 L MPV 11.1 H
[2022-04-01] MEDS: HEPARIN SOD (PORCINE) 1000 UNIT/ML IV SCH ×2 (15:09→15:25)
[2022-04-01] MEDS: ATORVASTATIN 20 MG TAB PO SCH (15:25)
[2022-04-01] MEDS: METOPROLOL SUCC 50MG EXT REL TAB PO SCH (15:26)
[2022-04-01] MEDS: EZETIMIBE 10 MG TABLET PO SCH (15:26)
[2022-04-01] MEDS: NEPHROCAPS PO SCH (15:27)
[2022-04-01] MEDS: PANTOprazole 40 MG TAB PO SCH ×2 (15:28→20:52)
[2022-04-01] MEDS: ceFAZolin 1000MG 1,000 MG/7.5 ML SYR IV SCH (15:28)
[2022-04-01] MEDS: ACETAMINOPHEN 325 MG TAB PO PRN (20:54)
[2022-04-01] MEDS: INSULIN GLARGINE SOLOSTAR 100 UNITS/ML 3 ML PEN SC SCH (21:41)
[2022-04-02] MEDS: diphenhydrAMINE 50 MG/ML VIAL IV PRN (02:42)
[2022-04-02 07:46] LABS: Est GFR (African American) 7.4 ml/min; Est GFR (Non-African American) 6.3 ml/min
[2022-04-02 07:47] LABS: BUN Creatinine Ratio 7.7 (10-20); Calcium 8.1 mg/dl (8.5-10.1); Creatinine Clr Calc Pharmacy 11.9 ml/min
[2022-04-02] MEDS: ATORVASTATIN 20 MG TAB PO SCH (09:37)
[2022-04-02] MEDS: CALCIUM ACETATE 667 MG CAP/TAB PO SCH ×3 (09:38→18:22)
[2022-04-02] MEDS: EZETIMIBE 10 MG TABLET PO SCH (09:38)
[2022-04-02] MEDS: NEPHROCAPS PO SCH (09:38)
[2022-04-02] MEDS: AMIODARONE 200 MG TAB PO SCH ×2 (09:38→18:23)
[2022-04-02] MEDS: METOPROLOL SUCC 50MG EXT REL TAB PO SCH (09:39)
[2022-04-02] MEDS: LIDOCAINE 5% 1 PATCH TD SCH (09:39)
[2022-04-02] MEDS: INSULIN ASPART PER UNIT SC SCH ×4 (09:40→20:23)
--- NOTE | 2022-04-02 11:12 | Hospitalist Progress Note ---
Date of Service April 02, 2022 Assessment & Plan (1) ESRD (end stage renal disease) on dialysis: Plan: - HD dependent for 2 years - Continue home medications. - Continue Cefazolin therapy as prescribed, will require 6 week course. - Does not receive heparin w dialysis. (2) Severe sepsis: Plan: - Now resolved, following antibiotics; Secondary to gram-positive bacteremia, source IJ cath - S/p removal of right tunneled IJ for suspected catheter associated bacteremia. Catheter tip growing staph species consistent with blood cultures - Right shoulder CT 03/17/22 without joint pathology (in setting of persistent pain) - Continued on cefazolin 1g IV, increased to 2g IV post dialysis sessions (patient will need a total of 6 weeks per ID) - US L Arm prosthetic Fistula: Discussed w vascular. 3.6 cm hyperechoic area abutting the vessel without vascular flow which may represent thrombus, fistula without surrounding fluid. - ID Consulted. Recommended --> Cefazolin. We will hold KIKE at this time as patient remains afebrile and cultures are negative. MSSA 4/ blood cultures, last positive was 03/17/22. Blood cultures as of 03/19 negative. COVID/bio fire negative CXR without evidence of pneumonia, some pulmonary edema with volume overload. Procalcitonin elevated on admit, improved. Patient was pancytopenic. Anaplasmosis smear negative, PCR negative (3) Rapid atrial fibrillation: Plan: Was given digoxin 250 mcg, amiodarone drip and converted. Did return to A. fib, was reloaded with IV after oral and again rate improved. Anticoagulation deferred due to thrombocytopenia and previous epistaxis that was severe, requiring transfusion Patient may need watchman procedure for recurrent A. fib with anemia and thrombocytopenia, however bacteremia must clear Chronic diastolic heart failure Echo: EF 30-35% with global hypokinesis. No valvular abnormalities. Mild pulmonary hypertension. Similar to 11/18/2021. Mild right ventricular dilation with mildly reduced systolic function, mild left atrial dilation. (4) Hypotension: Plan: Resolved (5) Thrombocytopenia: Plan: - Likely sepsis induced, anticoagulation/heparin deferred due to hx of severe bleeding and thrombocytopenia (6) Acute on chronic anemia: Plan: - Anemia of renal insufficiency. - S/p Retacrit injection last week, consider weekly injections moving forward. - Hgb level 7.9, will transfuse for Hgb <7.5 gm/dL> - Macrocytosis noted - recent B12 level >1500, Folate >22. (7) CHF (congestive heart failure): Plan: - HFrEF/ chronic diastolic heart failrue, stable, as per ECHO 11/2021, EF 35% - Continue home meds, monitor volume status. (8) Central venous catheter in place: Plan: - Tunneled IJ removed and cultured, has left AC endograft that is not functioning well at this time, , so temporary IJ dialysis catheter has been placed 03/22/2022. (9) HTN (hypertension): Plan: - Continue home Metoprolol. (10) IDDM (insulin dependent diabetes mellitus): Plan: - Continue basal/bolus - Pharmacy consulted for DM in ESRD (11) Pruritic rash: Plan: - ? abx induced, taking Benadryl prn pruritus. (12) Hyperkalemia: Plan: - Resolved. (13) Fever: Plan: - Resolved. (14) Pulmonary nodule: Plan: - CT chest 03/17 with multiple nodular densities - may represent septic emboli or metastatic disease. Follow up recommended. Plan: Patient will need a total of 6 weeks of antibiotics. Case management has been consulted for placement. Awaiting pre auth for [facility], discharge likely early next week. DVT ppx -SCDs, hold heparin SQ due to thrombocytopenia w/ history of multiple recurrent bleeds, and hemoglobin less than 8 DNR/DNI as per d/w patient Admission and Anticipated Discharge Date Admission Date: March 14, 2022 Supervising Physician Co-Signing Physician Notes Attending Attestation - Chart reviewed, care plan d/w GEM Watt. I agree w/ the ojeda components of her documentation. Godwin Johnson MD Sylvie Kenny is doing well overall. She has had an improvement in weakness and requires less assistance with ambulation to the restroom. She does have a mild rash on both arms, taking Benadryl prn. Denies increasing SOB. Review of Systems Review of Systems: Constitutional: Negative for weight loss, night sweats, or fever Eyes: Negative for event change of vision ENT: Negative for epistaxis, nasal discharge, sore throat, or deafness Cardiovascular: Negative for anginal type chest pain, palpitations, dizziness, diaphoresis Respiratory: Negative for new shortness of breath,hemoptysis, or purulent cough Gastrointestinal: Negative for diarrhea, hematemesis, melena, nausea, vomiting, or dyspepsia Integumentary (skin): Negative for rash or jaundice discoloration Genitourinary: Negative for urinary frequency, hematuria, or dysuria Neurological: Negative for weakness, seizure activity, headache, or dizziness Lymphatic/Hematologic: Negative for petechiae, bleeding or new adenopathy Musculoskeletal: Negative for new joint or back pain Allergic/Immunologic: Rash on arms Physical Exam Physical Exam: Constitutional: Very pleasant obese elderly female. Respiratory: Lung sounds were generally clear bilaterally. Cardiovascular: Heart was RRR without significant murmur, gallops or rubs. Gastrointestinal: No palpable hepatic or splenomegaly. The abdomen was soft with normal bowel sounds. Musculoskeletal System: The musculoskeletal system seemed concordant with age. Skin: Erythematous macular lesions on both arms. Extremities: Negative for edema or erythema Results & Data Results & Data ([facility]) Vital Signs (Past 12 Hours) Vital Signs Temp Pulse Resp BP Pulse Ox 04/02/22 07:30 36.8 C 71 18 152/63 H 97 Laboratory Results 04/02/22 04/02/22 04/02/22 Range/Units 12:34 08:44 06:24 Sodium 132 L (136-145) mmol/L Potassium 4.0 (3.5-5.1) mmol/L Chloride 97 L (98-107) mmol/L Carbon Dioxide 27 (21-32) mmol/L Anion Gap 8 (3-11) BUN 50 H (6-23) mg/dl Creatinine 6.48 H* D (0.6-1.2) mg/dl Est Cr Clr Drug Dosing 11.9 ml/min Est GFR ( Amer) 7.4 ml/min Est GFR (Non-Af Amer) 6.3 ml/min BUN/Creatinine Ratio 7.7 L (10-20) Glucose 99 (70-99(Fasting)) mg/dl POC Glucose 146 H 112 H (70-99) mg/dl Calcium 8.1 L (8.5-10.1) mg/dl 04/01/22 04/01/22 04/01/22 Range/Units 20:58 17:20 14:56 Sodium (136-145) mmol/L Potassium (3.5-5.1) mmol/L Chloride (98-107) mmol/L Carbon Dioxide (21-32) mmol/L Anion Gap (3-11) BUN (6-23) mg/dl Creatinine (0.6-1.2) mg/dl Est Cr Clr Drug Dosing ml/min Est GFR ( Amer) ml/min Est GFR (Non-Af Amer) ml/min BUN/Creatinine Ratio (10-20) Glucose (70-99(Fasting)) mg/dl POC Glucose 131 H 118 H 86 (70-99) mg/dl Calcium (8.5-10.1) mg/dl PG Care Time/CCT Total # of Minutes Spent Total Time Spent with Patient: Total time spent is greater than 50% in coordination of care (as documented) at patient's floor/unit and/or counseling patient: C[place] [address] Subseq Hosp Care Lvl 2 Patient Type Established Diagnoses ESRD (end stage renal disease) on dialysis N18.6; Z99.2 Severe sepsis A41.9; R65.20 Rapid atrial fibrillation I48.91 Hypotension I95.9 Thrombocytopenia D69.6 Acute on chronic anemia D64.9 CHF (congestive heart failure) I50.9 Central venous catheter in place Z78.9 HTN (hypertension) I10 IDDM (insulin dependent diabetes mellitus) Pruritic rash L28.2 Hyperkalemia E87.5 Fever R50.9 Pulmonary nodule R91.1
[2022-04-02] MEDS: PANTOprazole 40 MG TAB PO SCH ×2 (11:50→20:21)
[2022-04-02] MEDS: ceFAZolin 1000MG 1,000 MG/7.5 ML SYR IV SCH (14:35)
[2022-04-02] MEDS: INSULIN GLARGINE SOLOSTAR 100 UNITS/ML 3 ML PEN SC SCH (20:22)
[2022-04-03] MEDS: ACETAMINOPHEN 325 MG TAB PO PRN (01:56)
[2022-04-03 07:14] LABS: Basophils # (auto) 0.02 K/uL (0-0.2); Basophils % (auto) 0.5 %; Eosinophils # (auto) 0.06 K/uL (0-0.5); Eosinophils % (auto) 1.5 %; Hematocrit (blood only) 27.1 % (37-47); Hemoglobin 8.4 g/dL (12.0-16.0); Immature Granulocytes # (auto) 0.01 K/uL (0.00-0.02); Immature Granulocytes % (auto) 0.2 %; Lymphocytes # (auto) 0.82 K/uL (1.2-3.4); Lymphocytes % (auto) 20.4 %; Mean Corpuscular Hemoglobin 33.3 pg (25-34); Mean Corpuscular Volume 107.5 fL (80-100); Mean Platelet Volume 10.9 fL (7.4-10.4); Neutrophils % (auto) 67.4 %; Platelet Count 133 K/uL (130-400); RDW Coefficient of Variation 19.3 % (11.5-14.5); RDW Standard Deviation 74.9 fL (36.4-46.3); Red Blood Count 2.52 M/uL (4.2-5.4); White Blood Count 4.01 K/uL (4.8-10.8)
[2022-04-03] MEDS: NEPHROCAPS PO SCH (07:33)
[2022-04-03] MEDS: PANTOprazole 40 MG TAB PO SCH ×2 (07:33→20:38)
[2022-04-03] MEDS: EZETIMIBE 10 MG TABLET PO SCH (07:33)
[2022-04-03] MEDS: ATORVASTATIN 20 MG TAB PO SCH (07:33)
[2022-04-03] MEDS: METOPROLOL SUCC 50MG EXT REL TAB PO SCH (07:33)
[2022-04-03] MEDS: AMIODARONE 200 MG TAB PO SCH ×2 (07:34→16:26)
[2022-04-03] MEDS: CALCIUM ACETATE 667 MG CAP/TAB PO SCH ×3 (07:34→16:25)
[2022-04-03] MEDS: LIDOCAINE 5% 1 PATCH TD SCH (07:34)
[2022-04-03 07:51] LABS: Alanine Aminotransferase < 3 U/L (7-52); Albumin Globulin Ratio 0.6 (0.9-2); Albumin Level 2.7 gm/dl (3.4-5.0); Alkaline Phosphatase 77 U/L (34-104); Anion Gap 10 (3-11); Aspartate Aminotransferase 10 U/L (13-39); Bilirubin,Total 0.4 mg/dl (0.2-1.0); Blood Urea Nitrogen 73 mg/dl (6-23); Calcium 8.3 mg/dl (8.5-10.1); Carbon Dioxide 25 mmol/L (21-32); Chloride 96 mmol/L (98-107); Creatinine Clr Calc Pharmacy 9.5 ml/min; Est GFR (African American) 5.6 ml/min; Est GFR (Non-African American) 4.8 ml/min; Globulin 4.3 gm/dl (2.5-4.0); Glucose 109 mg/dl (70-99(Fasting)); Potassium 4.3 mmol/L (3.5-5.1); Sodium 131 mmol/L (136-145)
[2022-04-03] MEDS: INSULIN ASPART PER UNIT SC SCH ×4 (09:04→20:52)
--- NOTE | 2022-04-03 09:42 | Pharmacy Report ---
Pharmacy Glycemic Sign Off Nt - Date of Service April 03, 2022 - Assessment & Plan ASSESSMENT: * Pharmacy was consulted by Dr. Garcia on 03/16/22 for glycemic control and to write orders per [facility] inpatient glycemic control protocol. * Patient has been requiring ~25-30 units of insulin per day for adequate glycemic control * BSGs ranging 99 - 146 mg/dl * Regimen has required no adjustments for the past 4 days * Do not anticipate further changes in patient status that would quickly deteriorate glycemic control (i.e. patient to be NPO for upcoming procedure, steroids tapering, starting tube feedings, etc). PLAN FOR INPATIENT GLYCEMIC CONTROL: No changes needed to current regimen. * Continue basal insulin with Lantus 12 units SQ HS (patients home dose) * Continue NovoLog per scale ACHS/Q6hrs while NPO * Goal range = 110- 140 mg/dl * CF = 25 mg/dl/unit * CR = 1 unit for ever 7 g CHO consumed * Pharmacy is signing off of glycemic consult and will no longer be making adjustments to inpatient regimen. Please feel free to re-consult if needed. Thank you.
[2022-04-03 10:07] LABS: Thyroid Stimulating Hormone 11.884 uIu/ml (0.300-4.500)
[2022-04-03 10:40] LABS: T4 Free Thyroxine 1.04 ng/dl (0.61-1.60)
--- NOTE | 2022-04-03 11:44 | Nephrology Progress Note ---
Date of Service April 03, 2022 Assessment & Plan (1) ESRD (end stage renal disease) on dialysis: Plan: 62-year-old female with end-stage renal disease, on chronic hemodialysis, but with noncompliance and normally does 1-2 times per week. Now admitted with catheter-related bacteremia with methicillin-sensitive Staphylococcus aureus bacteremia. End-stage renal disease:Dialysed on 03/21 with @ 2.7L UF. Her blood pressure runs low, probably because of the underlying bacteremia and sepsis, but even on good days, her blood pressure is on the low side.Tolerated 2L UF on 03/25. tolerated 3L UF on 03/28. -Patient had HD on 03/30 w/ goal 3 kilo off as tolerated. -s/p TDC placement on 03/22 -Next dialysis will be tomorrow for 3 hours to get UF 3 L -From renal standpoint patient can be discharged to rehab (2) Bacteremia: Plan: Methicillin-sensitive Staphylococcus aureus bacteremia: This is related with dialysis catheter. Unfortunately, she seems quite prone to bacteremia as she has had multiple episodes like this in the last few months. Her dialysis days are tricky because she does not always come for dialysis, which makes antibiotics dosing difficult. On the other hand, with an extremely complicated vascular status with multiple failed arteriovenous fistula and multiple episodes of catheter placement, as much as possible would like to avoid the PICC line. -Continue Ancef renally dosed. Ancef can be given 3 times a week on dialysis days at the end of dialysis. Patient has to be agreeable to doing dialysis 3 times a week. There is no need for PICC line insertion. Admission and Anticipated Discharge Date Admission Date: March 14, 2022 Subjective Seen for ESRD. She feels better today. No shortness of breath. No leg swelling Review of Systems Review of Systems: All other systems were reviewed and negative except as noted in HPI Physical Exam Physical Exam: General exam: Appears comfortable, no acute distress HEENT: Pupils are equal and reactive to light Neck: No JVD, neck is supple trachea is midline Respiratory system: Clear breath sounds bilaterally. Gastrointestinal: Abdomen is soft, non distended, non tender, bowel sounds are present CVS: Regular rate and rhythm. No murmurs, rubs or gallops Musculoskeletal: No joint or muscle tenderness Extremities: Non tender, no edema, peripheral pulses are present Neuro: Oriented, no tremors, no focal neurological deficits Skin: No rashes Results & Data ([facility]) Vital Signs (Past 12 Hours) Vital Signs Temp Pulse Resp BP Pulse Ox 04/03/22 06:51 36.6 C 69 14 116/68 91 Laboratory Results 04/03/22 06:49 04/03/22 04/03/22 06:49 06:49 WBC 4.01 L RBC 2.52 L MCV 107.5 H MCH 33.3 MCHC 31.0 L RDW Std Deviation 74.9 H RDW Coeff of Wiley 19.3 H Plt Count 133 MPV 10.9 H Albumin 2.7 L
--- NOTE | 2022-04-03 12:26 | Hospitalist Progress Note ---
Date of Service April 03, 2022 Assessment & Plan (1) ESRD (end stage renal disease) on dialysis: Plan: HD dependent for 2 years but often noncompliant with outpatient schedule, often only going 1-2x's each week. Managed by [facility] locally. Next HD is 04/04/22. Currently dialyzing via tunneled HD catheter - placed 03/22/[address] Arevalo. Functioning well. Previously infected right IJ HD catheter removed prior on 03/15/22. Infection 2nd to MSSA. (2) Leukocytoclastic vasculitis: Plan: Rash on arms/legs - especially the legs - is c/w such. Antibiotics are known offenders. She is currently on IV ancef. Will stop IV ancef. I spoke with our antibiotic pharmacist - will go with 8mg/kg of daptomycin q48h. Re-consult ID for their opinion on antibiotic selection. Needs 6 weeks of therapy starting from 03/19/22 (date of first negative blood culture). Defer on steroids for now unless refractory symptoms/rash. Benadryl prn. (3) Hypothyroidism: Plan: TSH 11. Fatigue, other hypothyroid symptoms present. Start synthroid 50mcg daily. Repeat TSH 6 weeks. (4) Severe sepsis: Plan: Septicemia/bacteremia. 2nd MSSA. Source - right tunneled IJ. Catheter tip grew MSSA. Has been on 2gm IV ancef daily - now stopped 2nd to #2. Changed to daptomycin and I have requested repeat ID consultation for their opinion on long-term antibiotic therapy. US L Arm prosthetic Fistula: Discussed w vascular. 3.6 cm hyperechoic area abutting the vessel without vascular flow which may represent thrombus, fistula without surrounding fluid. Surface echo without SBE. KIKE deferred at this time as patient remains afebrile and cultures are negative starting 03/19/22. RIGHT shoulder CT without effusion to suggest septic arthritis. CT chest with pulmonary nodules may be septic, however. Regardless will Rx 6 weeks of IV abx. (5) Rapid atrial fibrillation: Plan: Converted back to NSR with amiodarone. Now on 200mg BID. Anticoagulation deferred due to thrombocytopenia and previous epistaxis that was severe, requiring transfusion. Patient could potentially need watchman procedure for recurrent A. fib with anemia and thrombocytopenia, however bacteremia must clear. Defer on such for now. (6) Hypotension: Plan: Resolved (7) Thrombocytopenia: Plan: Likely sepsis induced, anticoagulation/heparin deferred due to hx of severe bleeding and thrombocytopenia Platelets continue to improve CBC in am (8) Acute on chronic anemia: Plan: Anemia of CKD/ESRD. S/p Retacrit injection while here. H/H remain low but stable. Macrocytosis - some of this may be from hypothyroidism. B12/folate wnl. Cont to trend. (9) CHF (congestive heart failure): Plan: Chronic systolic CHF. EF 35%. Volume controlled with dialysis. Cont metoprolol succinate 50mg daily. (10) Central venous catheter in place: Plan: Now with new tunneled HD catheter placed 03/[address] Arevalo. Has left AC endograft that is not functioning well at this time. (11) HTN (hypertension): Plan: Continue home Metoprolol. Controlled. (12) IDDM (insulin dependent diabetes mellitus): Plan: Pharmacy glycemic team managing, but control has been excellent. (13) Pulmonary nodule: Plan: CT chest 03/17 with multiple nodular densities - may represent septic emboli or metastatic disease. Will obtain repeat chest CT in 6 weeks as outpatient to ensure resolution. (14) Morbid obesity with BMI of 50.0-59.9, adult: Plan: BMI 50 Plan: dispo - [facility] - hopefully this week await repeat ID consultation Admission and Anticipated Discharge Date Admission Date: March 14, 2022 Subjective patient continues to have a pruritic rash on her arms and legs states it is better than previous (first documentation of the rash ~03/28/22) but still present it is not painful it has not spread to torso, back, face she feels "much better" today energy improved although fatigue is an ongoing issue appetite improved R shoulder pain & mobility MUCH better than earlier in her stay motivated to go to [facility] for rehab Review of Systems Review of Systems: gen - no fever, no chills, good appetite cv - no orthopnea or cp pulm - no cough or dyspnea GI - no abd pain, nausea or emesis Physical Exam Physical Exam: gen - morbidly obese; sitting at side of bed comfortably; looks good; occasionally scratching at her arms neck - no JVD mouth - MMM, no thrush heart - RRR, s1 s2, 2/6 HERMINIO LSB lungs - CTA b/l abd - soft NT ND BS+ ext - rash on arms/legs (see skin below); no edema; pulses 2+ b/l musculo - right shoulder - passive & active ROM does not cause pain or tenderness; no joint effusion skin - petechial rash on distal legs b/l extending onto the feet; leukocytoclastic vasculitic in appearance; arms - scattered erythematous papules and what looks like resolving hive-like lesions; back, torso, face, neck, abdominal wall, and thighs are spared psych - a/o x 3 Results & Data Results & Data ([facility]) Vital Signs (Past 12 Hours) Vital Signs Temp Pulse Resp BP Pulse Ox 04/03/22 06:51 36.6 C 69 14 116/68 91 Laboratory Results Laboratory Results - last 24 hr 04/02/22 04/02/22 04/02/22 12:34 17:31 20:17 WBC RBC Hgb Hct MCV MCH MCHC RDW Std Deviation RDW Coeff of Wiley Plt Count MPV Immature Gran % (Auto) Neut % (Auto) Lymph % (Auto) [place] % (Auto) Eos % (Auto) Baso % (Auto) Neut # (Auto) Lymph # (Auto) [place] # (Auto) Eos # (Auto) Baso # (Auto) Immature Gran # (Auto) Sodium Potassium Chloride Carbon Dioxide Anion Gap BUN Creatinine Est Cr Clr Drug Dosing Est GFR ( Amer) Est GFR (Non-Af Amer) BUN/Creatinine Ratio Glucose POC Glucose 146 H 97 141 H Calcium Magnesium Total Bilirubin AST ALT Alkaline Phosphatase Total Protein Albumin Globulin Albumin/Globulin Ratio TSH Free T4 04/03/22 04/03/22 04/03/22 06:49 06:49 08:22 WBC 4.01 L RBC 2.52 L Hgb 8.4 L Hct 27.1 L MCV 107.5 H MCH 33.3 MCHC 31.0 L RDW Std Deviation 74.9 H RDW Coeff of Wiley 19.3 H Plt Count 133 MPV 10.9 H Immature Gran % (Auto) 0.2 Neut % (Auto) 67.4 Lymph % (Auto) 20.4 [place] % (Auto) 10.0 Eos % (Auto) 1.5 Baso % (Auto) 0.5 Neut # (Auto) 2.70 Lymph # (Auto) 0.82 L [place] # (Auto) 0.40 Eos # (Auto) 0.06 Baso # (Auto) 0.02 Immature Gran # (Auto) 0.01 Sodium 131 L Potassium 4.3 Chloride 96 L Carbon Dioxide 25 Anion Gap 10 BUN 73 H D Creatinine 8.11 H* D Est Cr Clr Drug Dosing 9.5 Est GFR ( Amer) 5.6 Est GFR (Non-Af Amer) 4.8 BUN/Creatinine Ratio 9.0 L Glucose 109 H POC Glucose 130 H Calcium 8.3 L Magnesium 2.0 Total Bilirubin 0.4 AST 10 L ALT < 3 L Alkaline Phosphatase 77 Total Protein 7.0 Albumin 2.7 L Globulin 4.3 H Albumin/Globulin Ratio 0.6 L TSH Free T4 04/03/22 09:03 WBC RBC Hgb Hct MCV MCH MCHC RDW Std Deviation RDW Coeff of Wiley Plt Count MPV Immature Gran % (Auto) Neut % (Auto) Lymph % (Auto) [place] % (Auto) Eos % (Auto) Baso % (Auto) Neut # (Auto) Lymph # (Auto) [place] # (Auto) Eos # (Auto) Baso # (Auto) Immature Gran # (Auto) Sodium Potassium Chloride Carbon Dioxide Anion Gap BUN Creatinine Est Cr Clr Drug Dosing Est GFR ( Amer) Est GFR (Non-Af Amer) BUN/Creatinine Ratio Glucose POC Glucose Calcium Magnesium Total Bilirubin AST ALT Alkaline Phosphatase Total Protein Albumin Globulin Albumin/Globulin Ratio TSH 11.884 H Free T4 1.04 PG Care Time/CCT Total # of Minutes Spent Total Time Spent with Patient: Total time spent is greater than 50% in coordination of care (as documented) at patient's floor/unit and/or counseling patient: Coding Level of Care Code 67291 Subseq Hosp Care Lvl 3 Diagnoses ESRD (end stage renal disease) on dialysis N18.6; Z99.2 Severe sepsis A41.9; R65.20 Rapid atrial fibrillation I48.91 Hypotension I95.9 Thrombocytopenia D69.6 Acute on chronic anemia D64.9 CHF (congestive heart failure) I50.9 Central venous catheter in place Z78.9 HTN (hypertension) I10 IDDM (insulin dependent diabetes mellitus) Pulmonary nodule R91.1 Hypothyroidism E03.9 Leukocytoclastic vasculitis M31.0 Morbid obesity with BMI of 50.0-59.9, adult E66.01; Z68.43
[2022-04-03] MEDS: LEVOTHYROXINE SODIUM 50 MCG TABLET PO SCH (13:27)
[2022-04-03] MEDS: diphenhydrAMINE 50 MG/ML VIAL IV PRN (13:38)
[2022-04-03] MEDS ORDERED: DAPTOmycin 650 MG in SYRINGE 0 ML IV SCH (16:00)
[2022-04-03] MEDS: INSULIN GLARGINE SOLOSTAR 100 UNITS/ML 3 ML PEN SC SCH (21:23)
[2022-04-04] MEDS: LEVOTHYROXINE SODIUM 50 MCG TABLET PO SCH (05:58)
[2022-04-04] MEDS ORDERED: HEPARIN SOD (PORCINE) 1000 UNIT/ML IV ONE (07:00)
[2022-04-04] MEDS ORDERED: SODIUM CHLORIDE 0.9% 1000ML 1,000 ML IV PRN (07:00)
[2022-04-04] MEDS ORDERED: EPOETIN ALFA 10,000 UNITS/ML VIAL IV ONE (07:00)
[2022-04-04 08:04] LABS: Hematocrit (blood only) 25.8 % (37-47); Hemoglobin 8.4 g/dL (12.0-16.0); Mean Corpuscular Hemoglobin 34.6 pg (25-34); Mean Corpuscular Hgb Conc 32.6 g/dL (32-36); Mean Corpuscular Volume 106.2 fL (80-100); Mean Platelet Volume 11.2 fL (7.4-10.4); Platelet Count 138 K/uL (130-400); RDW Coefficient of Variation 19.1 % (11.5-14.5); RDW Standard Deviation 73.6 fL (36.4-46.3); Red Blood Count 2.43 M/uL (4.2-5.4); White Blood Count 4.47 K/uL (4.8-10.8)
[2022-04-04 08:46] LABS: BUN Creatinine Ratio 9.2 (10-20); Calcium 8.1 mg/dl (8.5-10.1); Creatinine Clr Calc Pharmacy 7.6 ml/min; Est GFR (African American) 4.3 ml/min; Est GFR (Non-African American) 3.7 ml/min; Potassium 4.7 mmol/L (3.5-5.1)
[2022-04-04] MEDS: AMIODARONE 200 MG TAB PO SCH ×2 (09:47→18:27)
[2022-04-04] MEDS: NEPHROCAPS PO SCH (09:47)
[2022-04-04] MEDS: CALCIUM ACETATE 667 MG CAP/TAB PO SCH ×3 (09:47→18:27)
[2022-04-04] MEDS: PANTOprazole 40 MG TAB PO SCH ×2 (09:47→19:56)
[2022-04-04] MEDS: EZETIMIBE 10 MG TABLET PO SCH (09:47)
[2022-04-04] MEDS: LIDOCAINE 5% 1 PATCH TD SCH (09:48)
[2022-04-04] MEDS: METOPROLOL SUCC 50MG EXT REL TAB PO SCH (09:48)
[2022-04-04] MEDS: INSULIN ASPART PER UNIT SC SCH ×4 (09:52→21:56)
[2022-04-04] MEDS ORDERED: VANCOMYCIN CONSULT ACTIVE PRN (10:06)
--- NOTE | 2022-04-04 10:15 | Nephrology Progress Note ---
Date of Service April 04, 2022 Assessment & Plan (1) ESRD (end stage renal disease) on dialysis: Plan: 62-year-old female with end-stage renal disease, on chronic hemodialysis, but with noncompliance and normally does 1-2 times per week. Now admitted with catheter-related bacteremia with methicillin-sensitive Staphylococcus aureus bacteremia. End-stage renal disease:Dialysed on 03/21 with @ 2.7L UF. Her blood pressure runs low, probably because of the underlying bacteremia and sepsis, but even on good days, her blood pressure is on the low side.Tolerated 2L UF on 03/25. tolerated 3L UF on 03/28. -Patient had HD on 03/30 w/ goal 3 kilo off as tolerated. -s/p TDC placement on 03/22 -Next dialysis will be today afternoon for 3 hours to get UF 3 L -From renal standpoint patient can be discharged to rehab (2) Bacteremia: Plan: Methicillin-sensitive Staphylococcus aureus bacteremia: This is related with dialysis catheter. Unfortunately, she seems quite prone to bacteremia as she has had multiple episodes like this in the last few months. Her dialysis days are tricky because she does not always come for dialysis, which makes antibiotics dosing difficult. On the other hand, with an extremely complicated vascular status with multiple failed arteriovenous fistula and multiple episodes of catheter placement, as much as possible would like to avoid the PICC line. -Continue Ancef renally dosed. Ancef can be given 3 times a week on dialysis days at the end of dialysis. P atient has to be agreeable to doing dialysis 3 times a week. There is no need for PICC line insertion. Admission and Anticipated Discharge Date Admission Date: March 14, 2022 Subjective Seen for ESRD. She denies any shortness of breath or leg swelling. No nausea or vomiting. Review of Systems Review of Systems: All other systems were reviewed and negative except as noted in HPI Physical Exam Physical Exam: General exam: Appears comfortable, no acute distress HEENT: Pupils are equal and reactive to light Neck: No JVD, neck is supple trachea is midline Respiratory system: Clear breath sounds bilaterally. Gastrointestinal: Abdomen is soft, non distended, non tender, bowel sounds are present CVS: Regular rate and rhythm. No murmurs, rubs or gallops Musculoskeletal: No joint or muscle tenderness Extremities: Non tender, no edema, peripheral pulses are present Neuro: Oriented, no tremors, no focal neurological deficits Skin: No rashes Results & Data ([facility]) Vital Signs (Past 12 Hours) Vital Signs Temp Pulse Resp BP Pulse Ox 04/04/22 06:04 36.5 C 72 20 106/70 97 Laboratory Results 04/04/22 07:31 04/04/22 07:31 WBC 4.47 L RBC 2.43 L MCV 106.2 H MCH 34.6 H MCHC 32.6 RDW Std Deviation 73.6 H RDW Coeff of Wiley 19.1 H Plt Count 138 MPV 11.2 H
--- NOTE | 2022-04-04 14:38 | Pharmacy Report ---
Pharmacy Progress Note - Date of Service April 04, 2022 - Progress Note Pharmacy consulted for Vancomycin dosing today after Ancef held for this patient due to a delayed allergic reaction. Patient has been on antibiotic therapy since at least 03/15/22 for MSSA bacteremia. Per ID recommendations, patient needs 6 weeks of antibiotic therapy. Patient is on dialysis. Therefore, Vancomycin dosing will be based on levels. * Vancomycin 2250 mg IV (17.3 mg/kg) x 1 loading dose ordered to be given this evening after dialysis. * Random Vanco level ordered for tomorrow with AM labs. * Goal trough 15-20 mcg/ml. * Plan to re-order Vancomycin single doses when random level falls within goal range. Thank you
[2022-04-04] MEDS ORDERED: VANCOMYCIN HCL 2,250 MG in SODIUM CHLORIDE 0.9% 500 ML IV ONE (18:00)
[2022-04-04] MEDS: HEPARIN SOD (PORCINE) 1000 UNIT/ML IV SCH ×2 (18:35→18:36)
[2022-04-04] MEDS ORDERED: predniSONE 20 MG TAB PO ONE (20:15)
[2022-04-04] MEDS: INSULIN GLARGINE SOLOSTAR 100 UNITS/ML 3 ML PEN SC SCH (21:56)
--- NOTE | 2022-04-04 22:43 | Hospitalist Progress Note ---
Date of Service April 04, 2022 Assessment & Plan (1) ESRD (end stage renal disease) on dialysis: Plan: HD dependent for 2 years but often noncompliant with outpatient schedule, often only going 1-2x's each week. Managed by [facility] locally. s/p HD today. Currently dialyzing via tunneled HD catheter - placed 03/22/[address] Arevalo. Need to clarify if this is a temporary HD catheter or permcath. Functioning well. Previously infected right IJ HD catheter removed on 03/15/22. Infection 2nd to MSSA. (2) Leukocytoclastic vasculitis: Plan: Rash on arms/legs - especially the legs - is c/w such. I cannot exclude some element of septic emboli to the skin - especially rash on/near hands. Antibiotics are known offenders. Likely 2nd to IV ancef. Stopped IV ancef on 04/03. Gave single dose of 8mg/kg daptomycin. I spoke with Dr Ordoñez from [facility] today. He advised changing to IV vancomycin to complete her abx course. I then spoke with our pharmacy staff re: such. Needs 6 weeks of therapy starting from 03/19/22 (date of first negative blood culture). Given ongoing severe rash, itching, etc - start prednisone 40mg daily x 5 days. Serial exams. (3) Hypothyroidism: Plan: TSH 11. Fatigue, other hypothyroid symptoms present. Started synthroid 50mcg daily. Repeat TSH 6 weeks. (4) Severe sepsis: Plan: Septicemia/bacteremia. 2nd MSSA. Source - right tunneled IJ. Catheter tip grew MSSA. Had been on 2gm IV ancef daily - now stopped 2nd to #2. Changed to IV vanco today per Dr Ordoñez's recommendations. US L Arm prosthetic Fistula: Discussed w vascular. 3.6 cm hyperechoic area abutting the vessel without vascular flow which may represent thrombus, fistula without surrounding fluid. Surface echo without SBE. KIKE deferred at this time as patient remains afebrile and cultures are negative starting 03/19/22. However, if any SBE, she will complete 6 weeks of Rx. RIGHT shoulder CT without effusion to suggest septic arthritis. CT chest with pulmonary nodules may be septic, however. Regardless will Rx 6 weeks of IV abx. (5) Rapid atrial fibrillation: Plan: Converted back to NSR with amiodarone. Now on 200mg BID. Anticoagulation deferred earlier this stay due to thrombocytopenia and previous epistaxis that was severe, requiring transfusion. May be candidate for anticoagulation in future as platelets are near-normal and no recurrent bleeding episodes. However, continue to defer on anticoagulation. (6) Hypotension: Plan: Resolved (7) Thrombocytopenia: Plan: Likely sepsis induced, anticoagulation/heparin deferred due to hx of severe bleeding and thrombocytopenia Platelets continue to improve - now 138 today CBC in am for stability (8) Acute on chronic anemia: Plan: Anemia of CKD/ESRD. S/p Retacrit injection while here. H/H remain low but stable. Macrocytosis - some of this may be from hypothyroidism. B12/folate wnl. Cont to trend. (9) CHF (congestive heart failure): Plan: Chronic systolic CHF. EF 35%. Volume controlled with dialysis. Cont metoprolol succinate 50mg daily. (10) Central venous catheter in place: Plan: Now with new tunneled HD catheter placed 03/[address] Arevalo. Has left AC endograft that is not functioning well at this time and thus not using such. (11) HTN (hypertension): Plan: Continue home Metoprolol. Controlled. (12) IDDM (insulin dependent diabetes mellitus): Plan: Pharmacy glycemic team managing, but control has been excellent. May need adjustments due to addition of prednisone. (13) Pulmonary nodule: Plan: CT chest 03/17 with multiple nodular densities - may represent septic emboli or metastatic disease. Will obtain repeat chest CT in 6 weeks as outpatient to ensure resolution. (14) Morbid obesity with BMI of 50.0-59.9, adult: Plan: BMI 50 Plan: dispo - [facility] or SNF with dialysis capability I spoke with GIAN today - beds are tight or not available at many facilities locally cont PT/OT Admission and Anticipated Discharge Date Admission Date: March 14, 2022 Subjective patient had HD today she feels "really good" no new complaints continues with pruritic rash on arms/legs - but no worse than prior denies any pulmonary symptoms is disappointed that [facility] does not have any beds at this time I spoke with Adria Pierre - he had consulted on her care earlier in the stay expressed my concern about reaction to IV ancef we both agreed d/c of such is prudent; change to IV vanco for remainder of her course Review of Systems Review of Systems: gen - no fevers or chills; eating well cv - no cp, no orthopnea pulm - no cough or dyspnea GI - no diarrhea or pain skin - rash, pruritis Physical Exam Physical Exam: gen - morbidly obese; looks great neck - no JVD mouth - MMM, no thrush heart - RRR, s1 s2, 2/6 HERMINIO LSB lungs - CTA b/l abd - soft NT ND BS+ ext - rash on arms/legs (see skin below); no edema; pulses 2+ b/l musculo - right shoulder - passive & active ROM does not cause pain or tenderness; no joint effusion; no warmth; lidoderm patch in place skin - petechial rash on distal legs b/l extending onto the feet; leukocytoclastic vasculitic in appearance; arms - scattered erythematous papules and plaques and what looks like resolving hive-like lesions; back, torso, face, neck, abdominal wall, and thighs are spared hands - petechial type hemorrhages/septic emboli? psych - a/o x 3 Results & Data Results & Data ([facility]) Vital Signs (Past 12 Hours) Vital Signs Temp Pulse Pulse Pulse Resp BP BP 04/04/22 22:30 36.9 C 76 20 04/04/22 20:01 36.7 C 69 18 04/04/22 18:10 36.6 C 99/33 L 04/04/22 17:40 107 H 106/70 04/04/22 17:20 76 110/67 04/04/22 17:00 62 97/41 L 04/04/22 16:40 70 127/56 L 04/04/22 16:20 68 114/51 L 04/04/22 16:00 62 111/53 L 04/04/22 15:40 62 142/88 H 04/04/22 15:20 69 114/56 L 04/04/22 15:00 71 123/60 04/04/22 14:57 73 117/66 04/04/22 14:51 36.7 C 72 BP Pulse Ox 04/04/22 22:30 108/69 94 04/04/22 20:01 114/69 100 04/04/22 18:10 04/04/22 17:40 04/04/22 17:20 04/04/22 17:00 04/04/22 16:40 04/04/22 16:20 04/04/22 16:00 04/04/22 15:40 04/04/22 15:20 04/04/22 15:00 04/04/22 14:57 04/04/22 14:51 Laboratory Results Laboratory Results - last 24 hr 04/04/22 04/04/22 04/04/22 07:31 07:31 08:30 WBC 4.47 L RBC 2.43 L Hgb 8.4 L Hct 25.8 L MCV 106.2 H MCH 34.6 H MCHC 32.6 RDW Std Deviation 73.6 H RDW Coeff of Wiley 19.1 H Plt Count 138 MPV 11.2 H Sodium 129 L Potassium 4.7 Chloride 94 L Carbon Dioxide 22 Anion Gap 13 H BUN 94 H D Creatinine 10.19 H* D Est Cr Clr Drug Dosing 7.6 Est GFR ( Amer) 4.3 Est GFR (Non-Af Amer) 3.7 BUN/Creatinine Ratio 9.2 L Glucose 113 H POC Glucose 133 H Calcium 8.1 L 04/04/22 04/04/22 04/04/22 11:42 18:35 21:34 WBC RBC Hgb Hct MCV MCH MCHC RDW Std Deviation RDW Coeff of Wiley Plt Count MPV Sodium Potassium Chloride Carbon Dioxide Anion Gap BUN Creatinine Est Cr Clr Drug Dosing Est GFR ( Amer) Est GFR (Non-Af Amer) BUN/Creatinine Ratio Glucose POC Glucose 209 H 112 H 321 H* Calcium 04/04/22 04/04/22 21:39 21:41 WBC RBC Hgb Hct MCV MCH MCHC RDW Std Deviation RDW Coeff of Wiley Plt Count MPV Sodium Potassium Chloride Carbon Dioxide Anion Gap BUN Creatinine Est Cr Clr Drug Dosing Est GFR ( Amer) Est GFR (Non-Af Amer) BUN/Creatinine Ratio Glucose POC Glucose 163 H 157 H Calcium PG Care Time/CCT Total # of Minutes Spent Total Time Spent with Patient: Total time spent is greater than 50% in coordination of care (as documented) at patient's floor/unit and/or counseling patient: Coding Level of Care Code 06559 Subseq Hosp Care Lvl 3 Diagnoses ESRD (end stage renal disease) on dialysis N18.6; Z99.2 Leukocytoclastic vasculitis M31.0 Hypothyroidism E03.9 Severe sepsis A41.9; R65.20 Rapid atrial fibrillation I48.91 Hypotension I95.9 Thrombocytopenia D69.6 Acute on chronic anemia D64.9 CHF (congestive heart failure) I50.9 Central venous catheter in place Z78.9 HTN (hypertension) I10 IDDM (insulin dependent diabetes mellitus) Pulmonary nodule R91.1 Morbid obesity with BMI of 50.0-59.9, adult E66.01; Z68.43
[2022-04-05] MEDS: LEVOTHYROXINE SODIUM 50 MCG TABLET PO SCH (05:37)
[2022-04-05] MEDS: NEPHROCAPS PO SCH (08:11)
[2022-04-05] MEDS: PANTOprazole 40 MG TAB PO SCH ×2 (08:11→20:59)
[2022-04-05] MEDS: LIDOCAINE 5% 1 PATCH TD SCH (08:12)
[2022-04-05] MEDS: CALCIUM ACETATE 667 MG CAP/TAB PO SCH ×3 (08:12→17:15)
[2022-04-05] MEDS: predniSONE 20 MG TAB PO SCH (08:12)
[2022-04-05] MEDS: EZETIMIBE 10 MG TABLET PO SCH (08:12)
[2022-04-05] MEDS: AMIODARONE 200 MG TAB PO SCH ×2 (08:12→17:15)
[2022-04-05] MEDS: METOPROLOL SUCC 50MG EXT REL TAB PO SCH (08:12)
[2022-04-05 09:07] LABS: C Reactive Protein 5.82 mg/dl (0-0.5); Calcium 8.3 mg/dl (8.5-10.1); Creatinine Clr Calc Pharmacy 11.5 ml/min; Potassium 4.9 mmol/L (3.5-5.1)
[2022-04-05] MEDS: INSULIN ASPART PER UNIT SC SCH ×4 (09:13→21:03)
[2022-04-05 09:47] LABS: Hematocrit (blood only) 28.9 % (37-47); Mean Corpuscular Hemoglobin 32.7 pg (25-34); Mean Corpuscular Hgb Conc 31.1 g/dL (32-36); Mean Corpuscular Volume 105.1 fL (80-100); Platelet Count 180 K/uL (130-400); RDW Coefficient of Variation 19.3 % (11.5-14.5); RDW Standard Deviation 73.8 fL (36.4-46.3); Red Blood Count 2.75 M/uL (4.2-5.4); White Blood Count 4.47 K/uL (4.8-10.8)
--- NOTE | 2022-04-05 10:52 | Nephrology Progress Note ---
Date of Service April 05, 2022 Assessment & Plan (1) ESRD (end stage renal disease) on dialysis: Plan: 62-year-old female with end-stage renal disease, on chronic hemodialysis, but with noncompliance and normally does 1-2 times per week. Now admitted with catheter-related bacteremia with methicillin-sensitive Staphylococcus aureus bacteremia. End-stage renal disease:Dialysed on 03/21 with @ 2.7L UF. Her blood pressure runs low, probably because of the underlying bacteremia and sepsis, but even on good days, her blood pressure is on the low side.Tolerated 2L UF on 03/25. tolerated 3L UF on 03/28. -Patient had HD on 03/30 w/ goal 3 kilo off as tolerated. -s/p TDC placement on 03/22. She was dialyzed 04/04/2022 with net UF of 3 L. -Next dialysis will be tomorrow -From renal standpoint patient can be discharged to rehab (2) Bacteremia: Plan: Methicillin-sensitive Staphylococcus aureus bacteremia: This is related with dialysis catheter. Unfortunately, she seems quite prone to bacteremia as she has had multiple episodes like this in the last few months. Her dialysis days are tricky because she does not always come for dialysis, which makes antibiotics dosing difficult. On the other hand, with an extremely complicated vascular status with multiple failed arteriovenous fistula and multiple episodes of catheter placement, as much as possible would like to avoid the PICC line. -Continue vancomycin renally dosed. Vancomycin can be given 3 times a week on dialysis days at the end of dialysis. Patient has to be agreeable to doing dialysis 3 times a week. There is no need for PICC line insertion. Admission and Anticipated Discharge Date Admission Date: March 14, 2022 Subjective Seen for ESRD. She was dialyzed yesterday. No shortness of breath or leg swelling. She developed skin rash on Ancef and switched to vancomycin Review of Systems Review of Systems: All other systems were reviewed and negative except as noted in HPI Physical Exam Physical Exam: General exam: Appears comfortable, no acute distress HEENT: Pupils are equal and reactive to light Neck: No JVD, neck is supple trachea is midline Respiratory system: Clear breath sounds bilaterally. Gastrointestinal: Abdomen is soft, non distended, non tender, bowel sounds are present CVS: Regular rate and rhythm. No murmurs, rubs or gallops Musculoskeletal: No joint or muscle tenderness Extremities: Non tender, no edema, peripheral pulses are present Neuro: Oriented, no tremors, no focal neurological deficits Skin: No rashes Results & Data ([facility]) Vital Signs (Past 12 Hours) Vital Signs Temp Pulse Resp BP Pulse Ox 04/05/22 07:03 36.8 C 82 18 126/54 L 90 Laboratory Results 04/05/22 08:19 04/05/22 04/05/22 08:19 09:29 WBC Cancelled 4.47 L RBC Cancelled 2.75 L MCV Cancelled 105.1 H MCH Cancelled 32.7 MCHC Cancelled 31.1 L RDW Std Deviation Cancelled 73.8 H RDW Coeff of Wiley Cancelled 19.3 H Plt Count Cancelled 180 MPV Cancelled 11.0 H
--- NOTE | 2022-04-05 16:15 | Hospitalist Progress Note ---
Date of Service April 05, 2022 Assessment & Plan (1) ESRD (end stage renal disease) on dialysis: Plan: HD dependent for 2 years but often noncompliant with outpatient schedule, often only going 1-2x's each week. Managed by [facility] locally. Currently dialyzing via tunneled HD catheter left IJ permcath - placed 03/22/[address] Arevalo. Functioning well. Previously infected right IJ HD catheter removed on 03/15/22. Infection 2nd to MSSA. (2) Leukocytoclastic vasculitis: Plan: Rash on arms/legs - especially the legs - is c/w such. I cannot exclude some element of septic emboli to the skin - especially rash on/near hands. Antibiotics are known offenders. Likely 2nd to IV ancef. Stopped IV ancef on 04/03. Gave single dose of 8mg/kg daptomycin. Previous hospitalist spoke with Dr Ordoñez from [facility] 04/04 He advised changing to IV vancomycin to complete her abx course. Needs 6 weeks of therapy starting from 03/19/22 (date of first negative blood culture). Last day of tx will be 04/30/22 Given ongoing severe rash, itching, etc - started prednisone 40mg daily x 5 days- this is helping a lot with itching Serial exams. Seems to be improving (3) Hypothyroidism: Plan: TSH 11. Fatigue, other hypothyroid symptoms present. Started synthroid 50mcg daily. Repeat TSH 6 weeks around end of April-may (4) Severe sepsis: Plan: Septicemia/bacteremia. 2nd MSSA. Source - right tunneled IJ. Catheter tip grew MSSA. Had been on 2gm IV ancef daily - now stopped 2nd to rash and switched to Vanco US L Arm prosthetic Fistula: Discussed w vascular. 3.6 cm hyperechoic area abutting the vessel without vascular flow which may represent thrombus, fistula without surrounding fluid. Surface echo without SBE. KIKE deferred at this time as patient remains afebrile and cultures are negative starting 03/19/22. However, if any SBE, she will complete 6 weeks of Rx. RIGHT shoulder CT without effusion to suggest septic arthritis. CT chest with pulmonary nodules may be septic, however. Regardless will Rx 6 weeks of IV abx. Last day tx 04/30/22 and she can receive this with HD MWF (5) Rapid atrial fibrillation: Plan: Was unstable and transferred to ICU with rates as high as 200-220 and BP 70-80s systolic Converted back to NSR with amiodarone. Now on amiodarone 200mg BID. Anticoagulation deferred earlier this stay due to thrombocytopenia and previous epistaxis that was severe, requiring transfusion. May be candidate for anticoagulation in future as platelets are near-normal and no recurrent bleeding episodes. However, continue to defer on anticoagulation. (6) Hypotension: Plan: Resolved (7) Thrombocytopenia: Plan: Likely sepsis induced, anticoagulation/heparin deferred due to hx of severe bleeding and thrombocytopenia Platelets continue to improve - now 138 CBC in am for stability (8) Acute on chronic anemia: Plan: Anemia of CKD/ESRD. S/p Retacrit injection while here. H/H remain low but stable. Macrocytosis - some of this may be from hypothyroidism. B12/folate wnl. Cont to trend. (9) CHF (congestive heart failure): Plan: Chronic systolic CHF. EF 35%. Volume controlled with dialysis. Cont metoprolol succinate 50mg daily. (10) Central venous catheter in place: Plan: Now with new tunneled HD catheter placed 03/[address] Arevalo. Has left AC endograft that is not functioning well at this time and thus not using such. (11) HTN (hypertension): Plan: Continue home Metoprolol. Controlled. (12) IDDM (insulin dependent diabetes mellitus): Plan: Pharmacy glycemic team managing, but control has been excellent. May need adjustments due to addition of prednisone. (13) Pulmonary nodule: Plan: CT chest 03/17 with multiple nodular densities - may represent septic emboli or metastatic disease. Will obtain repeat chest CT in 6 weeks as outpatient to ensure resolution. (14) Morbid obesity with BMI of 50.0-59.9, adult: Plan: BMI 50 Plan: dispo - [facility] or SNF with dialysis capability. Pt feels like she is getting stronger each day-if no SNF/rehab bed available in the next 2 days, she wishes to go home with HH instead and family support cont PT/OT Admission and Anticipated Discharge Date Admission Date: March 14, 2022 Subjective Pt feeling well, feels stronger each day. Since starting on prednisone, her right shoulder pain has gone away. No CP. Still some FLORENTINO but overall much improved. Eating and drinking, moving bowels, making some urine. Review of Systems Review of Systems: All systems reviewed & are unremarkable except as noted in HPI & below Physical Exam Constitutional: WD/WN, vitals as above + morbidly obese Eyes: + anicteric sclerae Neck: trachea midline, no thyromegaly Respiratory: normal respiratory effort, lungs clear to auscultation Cardiovascular: RRR, no murmur, no edema Chest (Breasts): Chest: + vascular access device or port (left anterior chest tunneled catheter,no erythema) Gastrointestinal (Abdomen): normal bowel sounds, soft, nontender, no hepatosplenomegaly Musculoskeletal: Extremities: extremities normal to inspection; no cyanosis and no clubbing Skin: + rash (purplish macular rash thighs/knees,upper arms bilat) Neurologic: moves all extremities and awake; no focal motor deficits Psychiatric: A+Ox3, euthymic affect Lymphatic: no lymphedema Results & Data Results & Data ([facility]) Vital Signs (Past 12 Hours) Vital Signs Temp Pulse Resp BP Pulse Ox 04/05/22 15:16 36.9 C 83 17 162/81 H 95 04/05/22 07:03 36.8 C 82 18 126/54 L 90 Laboratory Results 04/05/22 04/05/22 04/05/22 Range/Units 12:38 12:16 11:59 WBC RBC Hgb Hct MCV MCH MCHC RDW Std Deviation RDW Coeff of Wiley Plt Count MPV Absolute Nucleated RBC Nucleated RBC % (auto) Platelet Estimate Sodium (136-145) mmol/L Potassium (3.5-5.1) mmol/L Chloride (98-107) mmol/L Carbon Dioxide (21-32) mmol/L Anion Gap (3-11) BUN (6-23) mg/dl Creatinine (0.6-1.2) mg/dl Est Cr Clr Drug Dosing ml/min Est GFR ( Amer) ml/min Est GFR (Non-Af Amer) ml/min BUN/Creatinine Ratio (10-20) Glucose (70-99(Fasting)) mg/dl POC Glucose 281 H 331 H* 300 H (70-99) mg/dl Calcium (8.5-10.1) mg/dl C-Reactive Protein (0-0.5) mg/dl Random Vancomycin (10-20) mcg/ml 04/05/22 04/05/22 04/05/22 Range/Units 09:29 08:19 08:19 WBC 4.47 L Cancelled RBC 2.75 L Cancelled Hgb 9.0 L Cancelled Hct 28.9 L Cancelled MCV 105.1 H Cancelled MCH 32.7 Cancelled MCHC 31.1 L Cancelled RDW Std Deviation 73.8 H Cancelled RDW Coeff of Wiley 19.3 H Cancelled Plt Count 180 Cancelled MPV 11.0 H Cancelled Absolute Nucleated RBC Cancelled Nucleated RBC % (auto) Cancelled Platelet Estimate Cancelled Sodium 130 L (136-145) mmol/L Potassium 4.9 (3.5-5.1) mmol/L Chloride 95 L (98-107) mmol/L Carbon Dioxide 23 (21-32) mmol/L Anion Gap 12 H (3-11) BUN 54 H D (6-23) mg/dl Creatinine 6.76 H* D (0.6-1.2) mg/dl Est Cr Clr Drug Dosing 11.5 ml/min Est GFR ( Amer) 7.0 ml/min Est GFR (Non-Af Amer) 6.0 ml/min BUN/Creatinine Ratio 8.0 L (10-20) Glucose 181 H (70-99(Fasting)) mg/dl POC Glucose (70-99) mg/dl Calcium 8.3 L (8.5-10.1) mg/dl C-Reactive Protein 5.82 H (0-0.5) mg/dl Random Vancomycin (10-20) mcg/ml 04/05/22 04/05/22 04/04/22 Range/Units 08:19 07:58 21:41 WBC RBC Hgb Hct MCV MCH MCHC RDW Std Deviation RDW Coeff of Wiley Plt Count MPV Absolute Nucleated RBC Nucleated RBC % (auto) Platelet Estimate Sodium (136-145) mmol/L Potassium (3.5-5.1) mmol/L Chloride (98-107) mmol/L Carbon Dioxide (21-32) mmol/L Anion Gap (3-11) BUN (6-23) mg/dl Creatinine (0.6-1.2) mg/dl Est Cr Clr Drug Dosing ml/min Est GFR ( Amer) ml/min Est GFR (Non-Af Amer) ml/min BUN/Creatinine Ratio (10-20) Glucose (70-99(Fasting)) mg/dl POC Glucose 192 H 157 H (70-99) mg/dl Calcium (8.5-10.1) mg/dl C-Reactive Protein (0-0.5) mg/dl Random Vancomycin 24.9 H (10-20) mcg/ml 04/04/22 04/04/22 04/04/22 Range/Units 21:39 21:34 18:35 WBC RBC Hgb Hct MCV MCH MCHC RDW Std Deviation RDW Coeff of Wiley Plt Count MPV Absolute Nucleated RBC Nucleated RBC % (auto) Platelet Estimate Sodium (136-145) mmol/L Potassium (3.5-5.1) mmol/L Chloride (98-107) mmol/L Carbon Dioxide (21-32) mmol/L Anion Gap (3-11) BUN (6-23) mg/dl Creatinine (0.6-1.2) mg/dl Est Cr Clr Drug Dosing ml/min Est GFR ( Amer) ml/min Est GFR (Non-Af Amer) ml/min BUN/Creatinine Ratio (10-20) Glucose (70-99(Fasting)) mg/dl POC Glucose 163 H 321 H* 112 H (70-99) mg/dl Calcium (8.5-10.1) mg/dl C-Reactive Protein (0-0.5) mg/dl Random Vancomycin (10-20) mcg/ml PG Care Time/CCT Total # of Minutes Spent Total Time Spent with Patient: Total time spent is greater than 50% in coordination of care (as documented) at patient's floor/unit and/or counseling patient: Coding Level of Care Code 70402 Subseq Hosp Care Lvl 2 Diagnoses ESRD (end stage renal disease) on dialysis N18.6; Z99.2 Leukocytoclastic vasculitis M31.0 Hypothyroidism E03.9 Severe sepsis A41.9; R65.20 Rapid atrial fibrillation I48.91 Hypotension I95.9 Thrombocytopenia D69.6 Acute on chronic anemia D64.9 CHF (congestive heart failure) I50.9 Central venous catheter in place Z78.9 HTN (hypertension) I10 IDDM (insulin dependent diabetes mellitus) Pulmonary nodule R91.1 Morbid obesity with BMI of 50.0-59.9, adult E66.01; Z68.43
[2022-04-05] MEDS: INSULIN GLARGINE SOLOSTAR 100 UNITS/ML 3 ML PEN SC SCH (21:01)
[2022-04-06] MEDS: LEVOTHYROXINE SODIUM 50 MCG TABLET PO SCH (06:11)
[2022-04-06 07:24] LABS: Basophils # (auto) 0.01 K/uL (0-0.2); Basophils % (auto) 0.2 %; Eosinophils # (auto) 0.03 K/uL (0-0.5); Eosinophils % (auto) 0.6 %; Hematocrit (blood only) 26.3 % (37-47); Hemoglobin 8.2 g/dL (12.0-16.0); Immature Granulocytes # (auto) 0.01 K/uL (0.00-0.02); Immature Granulocytes % (auto) 0.2 %; Lymphocytes # (auto) 0.74 K/uL (1.2-3.4); Lymphocytes % (auto) 15.2 %; Mean Corpuscular Hemoglobin 33.5 pg (25-34); Mean Corpuscular Hgb Conc 31.2 g/dL (32-36); Mean Corpuscular Volume 107.3 fL (80-100); Mean Platelet Volume 10.9 fL (7.4-10.4); Monocytes # (auto) 0.56 K/uL (0.11-0.59); Monocytes % (auto) 11.5 %; Neutrophils # (auto) 3.52 K/uL (1.4-6.5); Neutrophils % (auto) 72.3 %; Platelet Count 167 K/uL (130-400); RDW Coefficient of Variation 18.6 % (11.5-14.5); RDW Standard Deviation 73.4 fL (36.4-46.3); Red Blood Count 2.45 M/uL (4.2-5.4); White Blood Count 4.87 K/uL (4.8-10.8)
[2022-04-06 07:37] LABS: Alanine Aminotransferase < 3 U/L (7-52); Albumin Globulin Ratio 0.7 (0.9-2); Albumin Level 2.8 gm/dl (3.4-5.0); Alkaline Phosphatase 86 U/L (34-104); Anion Gap 10 (3-11); Aspartate Aminotransferase 10 U/L (13-39); BUN Creatinine Ratio 9.8 (10-20); Bilirubin,Total 0.4 mg/dl (0.2-1.0); Blood Urea Nitrogen 82 mg/dl (6-23); Calcium 8.3 mg/dl (8.5-10.1); Carbon Dioxide 26 mmol/L (21-32); Chloride 96 mmol/L (98-107); Creatinine Clr Calc Pharmacy 9.3 ml/min; Est GFR (African American) 5.4 ml/min; Est GFR (Non-African American) 4.7 ml/min; Globulin 4.3 gm/dl (2.5-4.0); Glucose 93 mg/dl (70-99(Fasting)); Magnesium 2.1 mg/dl (1.7-2.4); Potassium 4.3 mmol/L (3.5-5.1); Sodium 132 mmol/L (136-145); Total Protein 7.1 gm/dl (6.0-8.3)
[2022-04-06] MEDS: LIDOCAINE 5% 1 PATCH TD SCH (08:04)
[2022-04-06] MEDS: CALCIUM ACETATE 667 MG CAP/TAB PO SCH ×3 (08:07→17:15)
[2022-04-06] MEDS: EZETIMIBE 10 MG TABLET PO SCH (08:07)
[2022-04-06] MEDS: PANTOprazole 40 MG TAB PO SCH ×2 (08:07→22:04)
[2022-04-06] MEDS: NEPHROCAPS PO SCH (08:08)
[2022-04-06] MEDS: predniSONE 20 MG TAB PO SCH (08:08)
[2022-04-06] MEDS: AMIODARONE 200 MG TAB PO SCH ×2 (08:08→17:15)
[2022-04-06] MEDS ORDERED: SODIUM CHLORIDE 0.9% 1000ML 1,000 ML IV PRN (08:10)
[2022-04-06] MEDS ORDERED: HEPARIN SOD (PORCINE) 1000 UNIT/ML IV ONE (08:15)
[2022-04-06] MEDS ORDERED: EPOETIN ALFA 20,000 UNITS/ML VIAL IV SCH (08:30)
[2022-04-06] MEDS ORDERED: IRON SUCROSE 100 MG in SYRINGE 0 ML IV SCH (08:30)
[2022-04-06] MEDS: INSULIN ASPART PER UNIT SC SCH ×4 (08:40→21:20)
--- NOTE | 2022-04-06 08:55 | Pharmacy Report ---
Pharmacy PK ABX Note - Date of Service April 06, 2022 - Assessment and Plan Assessment Pharmacy consulted for Vancomycin dosing on 04/04/22 after Ancef held for this patient due to a delayed allergic reaction, believed to be leukocytoclastic vasculitis. Patient has been on antibiotic therapy since at least 03/15/22 for MSSA bacteremia. Per ID recommendations, patient needs 6 weeks of antibiotic therapy. Patient is on dialysis. Therefore, Vancomycin dosing will be based on levels. * Vancomycin 2250 mg IV (17.3 mg/kg) x 1 loading dose given on Monday after HD * Random Vanco level of 24.9 yesterday morning and 20.8 today * Hemodialysis scheduled for today Plan Vancomycin * 500 mg IV x 1 to be given after HD today * Will recheck random level on 04/08/22 prior to likely next HD session * Goal level between 15-20 mcg/mL Pharmacy will continue to follow and will adjust dose/frequency as necessary. Thank you.
[2022-04-06] MEDS: HEPARIN SOD (PORCINE) 1000 UNIT/ML IV SCH ×2 (09:28→12:36)
[2022-04-06] MEDS ORDERED: PHARMACY GLYCEMIC MGMT CONSULT PRN (09:38)
[2022-04-06] MEDS: METOPROLOL SUCC 50MG EXT REL TAB PO SCH (14:00)
--- NOTE | 2022-04-06 14:39 | Pharmacy Report ---
Pharmacy Glycemic Short Note 2 - Date of Service April 06, 2022 - Glycemic Short BSG Results (Last 24 hours): 04/05/22 04/05/22 04/06/22 17:13 20:34 06:33 Glucose 93 POC Glucose 215 H 233 H 04/06/22 04/06/22 08:11 13:46 Glucose POC Glucose 96 136 H OUTPATIENT ANTIDIABETIC REGIMEN: * Lantus 12 units SQ HS * Patient's HbA1c = 5.9% today. * However, this result is likely somewhat unreliable in ESRD patients d/t interactions between the A1c analyzing technique and high levels of urea in ESRD, reduced RBC life span, iron deficiency anemia, and EPO administration. HbA1c > 7.5% in ESRD patient may overestimate the extent of hyperglycemia in ESRD patients. ASSESSMENT: 04/06: * Pharmacy re-consulted for glycemic management in light of worsening BSGs secondary to initiation of prednisone 40 mg PO daily * Will tighten Novolog parameters today and allow for increased basal dose this evening * Will consider addition of basal in AM tomorrow with prednisone * Hemodialysis scheduled today 04/02: * BSGs remained well-controlled, glycemic consult discontinued 03/31: * Patient received total of 30 units of insulin yesterday, of which 12 units were basal * Fasting BSG 92 mg/dL - will continue with 12 units of basal for now (recent dose decrease ~20%, last evening first day of 12 units) * BSGs throughout the day relatively stable - continue same CF/CR for now 03/21: * Zoya's BSGs have been relatively well controlled over the last 48 hours: [phone] mg/dL. * Received 37 units of insulin on Monday and 41 units on Monday. * Minimal adjustments to insulin regimen over the weekend (CR tightened from 8 to 7 on Monday morning). * No changes in stressors. * Fasting BSG at 143 mg/dL this AM - controlled. She will have HD today. * No adjustments to insulin regimen required today. PLAN FOR INPATIENT GLYCEMIC CONTROL: * Basal insulin * Lantus 12-15 units HS (see EHR for details) * Bolus insulin * NovoLog per scale ACHS or Q6hrs while NPO * Goal Range: Low 110 mg/dL - High 140 mg/dL * Correction Factor: 15 mg/dL/unit * Nutritional / Prandial insulin per carb ratio of 1 unit per 5 grams CHO consumed
[2022-04-06] MEDS ORDERED: VANCOMYCIN HCL 500 MG in DEXTROSE 5% 100 ML IV SCH (17:00)
--- NOTE | 2022-04-06 18:58 | Hospitalist Progress Note ---
Date of Service April 06, 2022 Assessment & Plan (1) ESRD (end stage renal disease) on dialysis: Plan: HD dependent for 2 years but often noncompliant with outpatient schedule, often only going 1-2x's each week. Managed by [facility] locally. Currently dialyzing via tunneled HD catheter left IJ permcath - placed 03/22/[address] Arevalo. Functioning well. Previously infected right IJ HD catheter removed on 03/15/22. Infection 2nd to MSSA. She plans on attending dialysis 3 times a week after discharge at least while on IV vancomycin-she will be on a Monday schedule Next dialysis planned for 04/08 (2) Leukocytoclastic vasculitis: Plan: Rash on arms/legs - especially the legs - is c/w such. Antibiotics are known offenders. Likely 2nd to IV ancef. Stopped IV ancef on 04/03. Gave single dose of 8mg/kg daptomycin. Previous hospitalist spoke with Dr Ordoñez from [facility] 04/04 He advised changing to IV vancomycin to complete her abx course. Given ongoing severe rash, itching, etc - started prednisone 40mg daily x 5 days- this is helping a lot with itching Serial exams. Seems to be improving (3) Hypothyroidism: Plan: TSH 11. Fatigue, other hypothyroid symptoms present. Started synthroid 50mcg daily. Repeat TSH 6 weeks around end of April-may (4) Severe sepsis: Plan: Septicemia/bacteremia. 2nd MSSA. Source - right tunneled IJ. Catheter tip grew MSSA. Had been on 2gm IV ancef daily - now stopped 2nd to rash and switched to Vanco US L Arm prosthetic Fistula: Discussed w vascular. 3.6 cm hyperechoic area abutting the vessel without vascular flow which may represent thrombus, fistula without surrounding fluid. Surface echo without SBE. KIKE deferred at this time as patient remains afebrile and cultures are negative starting 03/19/22. However, if any SBE, she will complete 6 weeks of Rx. RIGHT shoulder CT without effusion to suggest septic arthritis. CT chest with pulmonary nodules may be septic, however. Needs 6 weeks of therapy starting from 03/19/22 (date of first negative blood culture). Last day of tx will be 04/30/22 She will receive her vancomycin at dialysis days on Monday Check vancomycin random levels at dialysis and give the dose if vancomycin level less than 17 (5) Rapid atrial fibrillation: Plan: Was unstable and transferred to ICU with rates as high as 200-220 and BP 70-80s systolic Converted back to NSR with amiodarone. Now on amiodarone 200mg BID. Anticoagulation deferred earlier this stay due to thrombocytopenia and previous epistaxis that was severe, requiring transfusion. May be candidate for anticoagulation in future as platelets are near-normal and no recurrent bleeding episodes. However, continue to defer on anticoagulation. (6) Thrombocytopenia: Plan: Likely sepsis induced, anticoagulation/heparin deferred due to hx of severe bleeding and thrombocytopenia Platelets continue to improve - now 160s (7) Acute on chronic anemia: Plan: Anemia of CKD/ESRD. S/p Retacrit injection while here. H/H remain low but stable. Macrocytosis - some of this may be from hypothyroidism. B12/folate wnl. check Fe studies in AM (8) CHF (congestive heart failure): Plan: Chronic systolic CHF. EF 35%. Volume controlled with dialysis. Cont metoprolol succinate 50mg daily. (9) Central venous catheter in place: Plan: Now with new tunneled HD catheter placed 03/[address] Arevalo. Has left AC endograft that is not functioning well at this time and thus not using such. (10) HTN (hypertension): Plan: Continue home Metoprolol. Controlled. (11) IDDM (insulin dependent diabetes mellitus): Plan: Pharmacy glycemic team managing, now with hyperglycemia secondary to prednisone Adjustments have been made to insulin dosing (12) Pulmonary nodule: Plan: CT chest 03/17 with multiple nodular densities - may represent septic emboli or metastatic disease. Will obtain repeat chest CT in 6 weeks as outpatient to ensure resolution. (13) Morbid obesity with BMI of 50.0-59.9, adult: Plan: BMI 50 Plan: dispo - Pt feels like she is getting stronger each day-as there has been no SNF/rehab bed available, she wishes to go home with HH instead and family support, but will plan to go home on Monday after having dialysis on Monday cont PT/OT Admission and Anticipated Discharge Date Admission Date: March 14, 2022 Subjective Patient reports feeling better each day. She worked with therapy today and received dialysis. She has no pains or shortness of breath. Feels like she is not ready to go tomorrow but wants to stay until Monday after she has dialysis on Monday. Feels like her rash is much improved and her itching is gone. Review of Systems Review of Systems: All systems reviewed & are unremarkable except as noted in HPI & below Physical Exam Constitutional: WD/WN, vitals as above + morbidly obese Eyes: + anicteric sclerae Neck: trachea midline, no thyromegaly Respiratory: normal respiratory effort, lungs clear to auscultation Cardiovascular: RRR, no murmur, no edema Chest (Breasts): Chest: + vascular access device or port (left anterior chest tunneled catheter,no erythema) Gastrointestinal (Abdomen): normal bowel sounds, soft, nontender, no hepatosplenomegaly Musculoskeletal: Extremities: extremities normal to inspection; no cyanosis and no clubbing Skin: no rashes, warm and dry + rash (purplish macular rash thighs/knees,upper arms bilat) Neurologic: moves all extremities and awake; no focal motor deficits Psychiatric: A+Ox3, euthymic affect Lymphatic: no lymphedema Results & Data Results & Data ([facility]) Vital Signs (Past 12 Hours) Vital Signs Temp Pulse Pulse Pulse Resp BP BP 04/06/22 15:18 37.0 C 74 17 131/72 04/06/22 14:00 77 163/83 H 04/06/22 13:45 36.9 C 77 136/59 L 04/06/22 13:00 57 L 130/60 04/06/22 12:40 57 L 135/55 L 04/06/22 12:20 68 132/55 L 04/06/22 12:00 56 L 139/60 04/06/22 11:40 66 132/52 L 04/06/22 11:20 61 137/69 04/06/22 11:00 60 131/54 L 04/06/22 10:40 61 141/59 H 04/06/22 10:20 61 133/58 L 04/06/22 10:00 62 142/60 H 04/06/22 09:40 68 144/61 H 04/06/22 09:23 75 134/68 04/06/22 09:15 36.6 C 76 04/06/22 07:43 36.6 C 72 17 106/61 Pulse Ox 04/06/22 15:18 91 04/06/22 14:00 04/06/22 13:45 04/06/22 13:00 04/06/22 12:40 04/06/22 12:20 04/06/22 12:00 04/06/22 11:40 04/06/22 11:20 04/06/22 11:00 04/06/22 10:40 04/06/22 10:20 04/06/22 10:00 04/06/22 09:40 04/06/22 09:23 04/06/22 09:15 04/06/22 07:43 91 Laboratory Results 04/06/22 04/06/22 04/06/22 Range/Units 17:16 13:46 08:11 WBC (4.8-10.8) K/uL RBC (4.2-5.4) M/uL Hgb (12.0-16.0) g/dL Hct (37-47) % MCV (80-100) fL MCH (25-34) pg MCHC (32-36) g/dL RDW Std Deviation (36.4-46.3) fL RDW Coeff of Wiley (11.5-14.5) % Plt Count (130-400) K/uL MPV (7.4-10.4) fL Immature Gran % (Auto) % Neut % (Auto) % Lymph % (Auto) % [place] % (Auto) % Eos % (Auto) % Baso % (Auto) % Neut # (Auto) (1.4-6.5) K/uL Lymph # (Auto) (1.2-3.4) K/uL [place] # (Auto) (0.11-0.59) K/uL Eos # (Auto) (0-0.5) K/uL Baso # (Auto) (0-0.2) K/uL Immature Gran # (Auto) (0.00-0.02) K/uL Sodium (136-145) mmol/L Potassium (3.5-5.1) mmol/L Chloride (98-107) mmol/L Carbon Dioxide (21-32) mmol/L Anion Gap (3-11) BUN (6-23) mg/dl Creatinine (0.6-1.2) mg/dl Est Cr Clr Drug Dosing ml/min Est GFR ( Amer) ml/min Est GFR (Non-Af Amer) ml/min BUN/Creatinine Ratio (10-20) Glucose (70-99(Fasting)) mg/dl POC Glucose 253 H 136 H 96 (70-99) mg/dl Calcium (8.5-10.1) mg/dl Magnesium (1.7-2.4) mg/dl Total Bilirubin (0.2-1.0) mg/dl AST (13-39) U/L ALT (7-52) U/L Alkaline Phosphatase (34-104) U/L Total Protein (6.0-8.3) gm/dl Albumin (3.4-5.0) gm/dl Globulin (2.5-4.0) gm/dl Albumin/Globulin Ratio (0.9-2) Random Vancomycin (10-20) mcg/ml 04/06/22 04/06/22 04/06/22 Range/Units 06:33 06:33 06:33 WBC 4.87 (4.8-10.8) K/uL RBC 2.45 L (4.2-5.4) M/uL Hgb 8.2 L (12.0-16.0) g/dL Hct 26.3 L (37-47) % MCV 107.3 H (80-100) fL MCH 33.5 (25-34) pg MCHC 31.2 L (32-36) g/dL RDW Std Deviation 73.4 H (36.4-46.3) fL RDW Coeff of Wiley 18.6 H (11.5-14.5) % Plt Count 167 (130-400) K/uL MPV 10.9 H (7.4-10.4) fL Immature Gran % (Auto) 0.2 % Neut % (Auto) 72.3 % Lymph % (Auto) 15.2 % [place] % (Auto) 11.5 % Eos % (Auto) 0.6 % Baso % (Auto) 0.2 % Neut # (Auto) 3.52 (1.4-6.5) K/uL Lymph # (Auto) 0.74 L (1.2-3.4) K/uL [place] # (Auto) 0.56 (0.11-0.59) K/uL Eos # (Auto) 0.03 (0-0.5) K/uL Baso # (Auto) 0.01 (0-0.2) K/uL Immature Gran # (Auto) 0.01 (0.00-0.02) K/uL Sodium 132 L (136-145) mmol/L Potassium 4.3 (3.5-5.1) mmol/L Chloride 96 L (98-107) mmol/L Carbon Dioxide 26 (21-32) mmol/L Anion Gap 10 (3-11) BUN 82 H D (6-23) mg/dl Creatinine 8.37 H* D (0.6-1.2) mg/dl Est Cr Clr Drug Dosing 9.3 ml/min Est GFR ( Amer) 5.4 ml/min Est GFR (Non-Af Amer) 4.7 ml/min BUN/Creatinine Ratio 9.8 L (10-20) Glucose 93 (70-99(Fasting)) mg/dl POC Glucose (70-99) mg/dl Calcium 8.3 L (8.5-10.1) mg/dl Magnesium 2.1 (1.7-2.4) mg/dl Total Bilirubin 0.4 (0.2-1.0) mg/dl AST 10 L (13-39) U/L ALT < 3 L (7-52) U/L Alkaline Phosphatase 86 (34-104) U/L Total Protein 7.1 (6.0-8.3) gm/dl Albumin 2.8 L (3.4-5.0) gm/dl Globulin 4.3 H (2.5-4.0) gm/dl Albumin/Globulin Ratio 0.7 L (0.9-2) Random Vancomycin 20.8 H (10-20) mcg/ml 04/05/22 Range/Units 20:34 WBC (4.8-10.8) K/uL RBC (4.2-5.4) M/uL Hgb (12.0-16.0) g/dL Hct (37-47) % MCV (80-100) fL MCH (25-34) pg MCHC (32-36) g/dL RDW Std Deviation (36.4-46.3) fL RDW Coeff of Wiley (11.5-14.5) % Plt Count (130-400) K/uL MPV (7.4-10.4) fL Immature Gran % (Auto) % Neut % (Auto) % Lymph % (Auto) % [place] % (Auto) % Eos % (Auto) % Baso % (Auto) % Neut # (Auto) (1.4-6.5) K/uL Lymph # (Auto) (1.2-3.4) K/uL [place] # (Auto) (0.11-0.59) K/uL Eos # (Auto) (0-0.5) K/uL Baso # (Auto) (0-0.2) K/uL Immature Gran # (Auto) (0.00-0.02) K/uL Sodium (136-145) mmol/L Potassium (3.5-5.1) mmol/L Chloride (98-107) mmol/L Carbon Dioxide (21-32) mmol/L Anion Gap (3-11) BUN (6-23) mg/dl Creatinine (0.6-1.2) mg/dl Est Cr Clr Drug Dosing ml/min Est GFR ( Amer) ml/min Est GFR (Non-Af Amer) ml/min BUN/Creatinine Ratio (10-20) Glucose (70-99(Fasting)) mg/dl POC Glucose 233 H (70-99) mg/dl Calcium (8.5-10.1) mg/dl Magnesium (1.7-2.4) mg/dl Total Bilirubin (0.2-1.0) mg/dl AST (13-39) U/L ALT (7-52) U/L Alkaline Phosphatase (34-104) U/L Total Protein (6.0-8.3) gm/dl Albumin (3.4-5.0) gm/dl Globulin (2.5-4.0) gm/dl Albumin/Globulin Ratio (0.9-2) Random Vancomycin (10-20) mcg/ml PG Care Time/CCT Total # of Minutes Spent Total Time Spent with Patient: Total time spent is greater than 50% in coordination of care (as documented) at patient's floor/unit and/or counseling patient: Coding Level of Care Code 52137 Subseq Hosp Care Lvl 2 Diagnoses ESRD (end stage renal disease) on dialysis N18.6; Z99.2 Leukocytoclastic vasculitis M31.0 Hypothyroidism E03.9 Severe sepsis A41.9; R65.20 Rapid atrial fibrillation I48.91 Thrombocytopenia D69.6 Acute on chronic anemia D64.9 CHF (congestive heart failure) I50.9 Central venous catheter in place Z78.9 HTN (hypertension) I10 IDDM (insulin dependent diabetes mellitus) Pulmonary nodule R91.1 Morbid obesity with BMI of 50.0-59.9, adult E66.01; Z68.43
--- NOTE | 2022-04-06 20:23 | Nephrology Progress Note ---
Date of Service April 06, 2022 Assessment & Plan (1) ESRD (end stage renal disease) on dialysis: Plan: 62-year-old female with end-stage renal disease, on chronic hemodialysis, but with noncompliance and normally does 1-2 times per week. Now admitted with catheter-related bacteremia with methicillin-sensitive Staphylococcus aureus bacteremia. End-stage renal disease:Dialysed on 03/21 with @ 2.7L UF. Her blood pressure runs low, probably because of the underlying bacteremia and sepsis, but even on good days, her blood pressure is on the low side -- more robust past several days ? d/t steroids; +/- role for new dx hypothyroid.Tolerated 2L UF on 03/25. tolerated 3L UF on 03/28. -Patient had HD on 03/30 w/ goal 3 kilo off as tolerated. -s/p TDC placement on 03/22. She was dialyzed 04/06/2022 (today) with net UF of 3.5 L. -Next dialysis will be 04/08 -From renal standpoint patient can be discharged to rehab or home w/ abtx at HD (2) Bacteremia: Plan: Methicillin-sensitive Staphylococcus aureus bacteremia: This is related with dialysis catheter. Unfortunately, she seems quite prone to bacteremia as she has had multiple episodes like this in the last few months. Her dialysis days are tricky because she does not always come for dialysis, which makes antibiotics dosing difficult. On the other hand, with an extremely complicated vascular status with multiple failed arteriovenous fistula and multiple episodes of catheter placement, as much as possible would like to avoid the PICC line. -Continue vancomycin renally dosed. Vancomycin can be given 3 times a week on dialysis days at the end of dialysis w/ last day 04/30. Patient has to be agreeable to doing dialysis 3 times a week. There is no need for PICC line insertion. >>>>she will need specialty pharmacy/ inf dzs to follow vanco levels and to manage dose adjustments prn trough <17 Admission and Anticipated Discharge Date Admission Date: March 14, 2022 Subjective tolerated HD today w/o issue. seen on evenign rounds. feels best she has in days; yesterday OOB 11 hr she states and did 2 PT. Review of Systems Review of Systems: All systems reviewed & are unremarkable except as noted in Subjective Physical Exam Constitutional: well developed, well nourished, + morbidly obese and cooperative; no acute distress sitting on side of bed on RA Eyes: EOM intact bilaterally ENMT: Ears: no external ear abnormality Nose: no external nose abnormality Mouth: + dry oral mucous membranes Neck: no nuchal rigidity Respiratory: normal respiratory effort Auscultation: + diminished lung sounds Cardiovascular: Rate/Rhythm: regular rate and regular rhythm Extremities: no edema Gastrointestinal (Abdomen): Inspection/Auscultation: normal bowel sounds Percussion/Palpation: abdomen soft; abdomen nontender Musculoskeletal: Extremities: strength 5/5 throughout Skin: normal turgor and + rash (pustular rash on upper extremities, trunk) Neurologic: mc, fluent speech, no tremor Psychiatric: Orientation: oriented x 3 Results & Data ([facility]) Vital Signs (Past 12 Hours) Vital Signs Temp Pulse Pulse Pulse Resp BP BP 04/06/22 15:18 37.0 C 74 17 131/72 04/06/22 14:00 77 163/83 H 04/06/22 13:45 36.9 C 77 136/59 L 04/06/22 13:00 57 L 130/60 04/06/22 12:40 57 L 135/55 L 04/06/22 12:20 68 132/55 L 04/06/22 12:00 56 L 139/60 04/06/22 11:40 66 132/52 L 04/06/22 11:20 61 137/69 04/06/22 11:00 60 131/54 L 04/06/22 10:40 61 141/59 H 04/06/22 10:20 61 133/58 L 04/06/22 10:00 62 142/60 H 04/06/22 09:40 68 144/61 H 04/06/22 09:23 75 134/68 04/06/22 09:15 36.6 C 76 Pulse Ox 04/06/22 15:18 91 04/06/22 14:00 04/06/22 13:45 04/06/22 13:00 04/06/22 12:40 04/06/22 12:20 04/06/22 12:00 04/06/22 11:40 04/06/22 11:20 04/06/22 11:00 04/06/22 10:40 04/06/22 10:20 04/06/22 10:00 04/06/22 09:40 04/06/22 09:23 04/06/22 09:15 Laboratory Results 04/06/22 06:33 04/06/22 06:33
[2022-04-06] MEDS ORDERED: INSULIN GLARGINE SOLOSTAR 100 UNITS/ML 3 ML PEN SC SCH (21:00)
[2022-04-07] MEDS: LEVOTHYROXINE SODIUM 50 MCG TABLET PO SCH (05:34)
[2022-04-07 07:20] LABS: Phosphorus 4.1 mg/dl (2.5-4.9)
[2022-04-07] MEDS: EZETIMIBE 10 MG TABLET PO SCH (08:08)
[2022-04-07] MEDS: CALCIUM ACETATE 667 MG CAP/TAB PO SCH ×3 (08:08→16:09)
[2022-04-07] MEDS: NEPHROCAPS PO SCH (08:09)
[2022-04-07] MEDS: predniSONE 20 MG TAB PO SCH (08:09)
[2022-04-07] MEDS: PANTOprazole 40 MG TAB PO SCH (08:09)
[2022-04-07] MEDS: METOPROLOL SUCC 50MG EXT REL TAB PO SCH (08:09)
[2022-04-07] MEDS: LIDOCAINE 5% 1 PATCH TD SCH (08:10)
[2022-04-07] MEDS: AMIODARONE 200 MG TAB PO SCH ×2 (08:13→16:09)
[2022-04-07] MEDS: ATORVASTATIN 20 MG TAB PO SCH (10:04)
[2022-04-07] MEDS: INSULIN ASPART PER UNIT SC SCH ×2 (10:05→12:34)
--- NOTE | 2022-04-07 10:19 | Nephrology Progress Note ---
Date of Service April 07, 2022 Assessment & Plan (1) ESRD (end stage renal disease) on dialysis: Plan: 62-year-old female with end-stage renal disease, on chronic hemodialysis, but with noncompliance and normally does 1-2 times per week. Now admitted with catheter-related bacteremia with methicillin-sensitive Staphylococcus aureus bacteremia. End-stage renal disease:Even on good days, her blood pressure is on the low side -- more robust past several days ? d/t steroids; +/- role for new dx hypothyroid. -tolerating 2-3.5L UF on dialysis -s/p TDC placement on 03/22. -Next dialysis will be 04/09, to resume OP schedule; already had 2 txs this week w/ 6.8L UF -From renal standpoint patient can be discharged home w/ abtx at HD as below (2) Bacteremia: Plan: Methicillin-sensitive Staphylococcus aureus bacteremia: This is related with dialysis catheter. -quite prone to bacteremia as she has had multiple episodes like this in the last few months. Her dialysis days are tricky because she does not always come for dialysis, which makes antibiotics dosing difficult. On the other hand, with an extremely complicated vascular status with multiple failed arteriovenous fistula and multiple episodes of catheter placement, as much as possible would like to avoid the PICC line. -Continue vancomycin 1 gm IV last 30 min of HD w/ last day 04/30 -Patient has to be agreeable to doing dialysis 3 times a week. There is no need for PICC line insertion. -dialysis unit reports she had a rash/hives in past w/ vanco >>however she has had several doses during this extended admission w/o issue >> advised that she have level drawn 04/14 and has prn benadryl orders; staff to contact [facility] [employer] senior executive to review dose/level on 04/17 Care coordinated w/ Dr Espinosa Admission and Anticipated Discharge Date Admission Date: March 14, 2022 Subjective no interval events or concerns. ambulating wharton today w/ walker. no sob, no edema; feels rash improving, "I feel like a new person" Review of Systems Review of Systems: All systems reviewed & are unremarkable except as noted in Subjective Physical Exam Constitutional: well developed, well nourished, + morbidly obese and cooperative; no acute distress Eyes: EOM intact bilaterally ENMT: Ears: no external ear abnormality Nose: no external nose abnormality Mouth: + dry oral mucous membranes Neck: no nuchal rigidity Respiratory: normal respiratory effort Auscultation: + diminished lung sounds Cardiovascular: Rate/Rhythm: regular rate and regular rhythm Extremities: no edema Gastrointestinal (Abdomen): Inspection/Auscultation: normal bowel sounds Percussion/Palpation: abdomen soft; abdomen nontender Musculoskeletal: Extremities: strength 5/5 throughout Skin: no rashes, warm and dry normal turgor and + rash (fainter pustular rash on upper extremities, trunk) Neurologic: mc, fluent speech, no tremor Psychiatric: Orientation: oriented x 3 Results & Data ([facility]) Vital Signs (Past 12 Hours) Vital Signs Temp Pulse Resp BP Pulse Ox 04/07/22 08:05 36.4 C L 52 L 18 126/69 96 Laboratory Results 04/06/22 06:33 04/06/22 06:33
--- NOTE | 2022-04-07 10:40 | Discharge Summary ---
Date of Service April 07, 2022 Admission HPI Per Admitting Provider This patient is a 62-year-old female with history of ESRD on hemodialysis / only, HTN, DM 2, HFrEF, PAF not on AC due to h/o bleeding, anemia of chronic disease who presents as a direct admission from [facility] with fevers, generalized weakness, and some SOB. SHe just had her right tunneled IJ perm cath replaced on Monday at [facility] as it was fractured. She reports ever since that procedure she has had right shoulder pain that is constant in nature and fairly severe at times. At [facility], she was found to have a K+ of 5.8 without ECG changes, and was told she had PNA although CXR report from there does not note PNA. CXR here shows pulm vascular congestion. She reports having a fever at home to 102 last evening but was afebrile in [place] [facility] and here. She reports some SOB and is on 2LNC when she arrived. BPs are soft but she denies lightheadedness. Has some occasional cough, nonproductive. She is now having loose stools due to receiving kayexolate at [place]. She does make urine and has not noticed any urinary symptoms. She denies headaches, lightheadedness, sore throat, chest pains, abdominal pains, or leg swelling. At [place] [facility] she received IV calcium gluconate, IV insulin, Kayexalate. Her trop was mildly elevated at 130 approximately, she had thrombocytopenia worse than her baseline, no leukocytosis. Mobile Engineer was 10. She will be admitted for ongoing treatment of hyperkalemia, fever of unknown origin. Principal Diagnosis MSSA Septicemia, Rapid atrial fibrillation, Hemodialysis catheter line infection Discharge Exam Constitutional WD/WN, vitals as above + morbidly obese Eyes + anicteric sclerae ENMT external ear and nose normal, oropharynx normal Neck trachea midline, no thyromegaly Respiratory normal respiratory effort, lungs clear to auscultation Cardiovascular RRR, no murmur, no edema Chest (Breasts) Chest: + vascular access device or port (left anterior chest tunneled catheter,no erythema) Gastrointestinal (Abdomen) normal bowel sounds, soft, nontender, no hepatosplenomegaly Musculoskeletal Extremities: extremities normal to inspection; no cyanosis and no clubbing Skin no rashes, warm and dry + rash (purplish macular rash thighs/knees,upper arms bilat, improving) Neurologic moves all extremities and awake; no focal motor deficits Psychiatric A+Ox3, euthymic affect Lymphatic no lymphedema Discharge Data Allergies Allergy/AdvReac Type Severity Reaction Status Date / Time cefazolin Allergy 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 metformin AdvReac Intermediate Diarrhea Verified 11/16/21 16:52 Consultations 03/14/22 11:01 Consult Nephrology Routine 03/14/22 20:41 Consult Cardiology Routine 03/14/22 21:08 Consult Rack Carrier Stat 03/14/22 22:22 Consult Vascular Surgery Routine 03/15/22 07:07 Consult Infectious Diseases Routine 03/18/22 12:45 Consult Patient Services Routine Procedures Performed Operation Date: 03/18/22 09:50 <No data on this case meets the specified criteria> Operation Date: 03/22/22 10:10 Actual Procedures p Perm Catheter Placement Left Jugular Approach, Ultrasound Localization to Left Jugular Vein, Fluoroscopy for positioing, Removal of Temporary Dialysis Catheter, Moderate Sedation 1320- 1410(Left) - Kalpesh Arevalo MD Ordered Studies 03/17/22 09:01 CT shoulder RT wo con Routine 03/17/22 10:35 US hemodialysis access Routine 03/17/22 13:15 CT chest diagnostic w con Urgent 03/22/22 12:50 EV cvc insrt tunnel wo prt/material spreader Routine US EV guide vascular access Routine Hospital Course (1) ESRD (end stage renal disease) on dialysis: HD dependent for 2 years but often noncompliant with outpatient schedule, often only going 1-2x's each week. Managed by [facility] locally. Currently dialyzing via tunneled HD catheter left IJ permcath - placed 03/22/[address] Arevalo. Functioning well. Previously infected right IJ HD catheter removed on 03/15/22. Infection 2nd to MSSA. 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 Antibiotics are known offenders. Likely 2nd to IV ancef. Stopped IV ancef on 04/03. Gave single dose of 8mg/kg daptomycin. Previous hospitalist spoke with Dr Ordoñez from [facility] 04/04 He advised changing to IV vancomycin to complete her abx course. Given ongoing severe rash, itching, etc - started prednisone 40mg daily x 5 days- this is helping a lot with itching and rash is diminished finish out one more day of prednisone 40mg after discharge, then can take benadryl prn (3) Hypothyroidism: TSH 11. Fatigue, other hypothyroid symptoms present. Started synthroid 50mcg daily but convert to 25 mcg daily on discharge Repeat TSH 6 weeks around end of April-may (4) Severe sepsis: Septicemia/bacteremia. 2nd MSSA. Source - right tunneled IJ. Catheter tip grew MSSA. Had been on 2gm IV ancef daily - now stopped 2nd to rash and switched to Vanco US L Arm prosthetic Fistula: Discussed w vascular. 3.6 cm hyperechoic area abutting the vessel without vascular flow which may represent thrombus, fistula without surrounding fluid. Surface echo without SBE. KIKE deferred at this time as patient remains afebrile and cultures are negative starting 03/19/22. However, if any SBE, she will complete 6 weeks of Rx. RIGHT shoulder CT without effusion to suggest septic arthritis. CT chest with pulmonary nodules may be septic, however. Needs 6 weeks of therapy starting from 03/19/22 (date of first negative blood culture). Last day of tx will be 04/30/22 She will receive her vancomycin 1000mg IV at dialysis days on Monday Check vancomycin random levels at dialysis on 04/14/22--> goal random level is 15- 20 (5) Rapid atrial fibrillation: Was unstable and transferred to ICU with rates as high as 200-220 and BP 70-80s systolic Converted back to NSR with amiodarone. Now on amiodarone 200mg BID. Anticoagulation deferred earlier this stay due to thrombocytopenia and previous epistaxis that was severe, requiring transfusion. May be candidate for anticoagulation in future as platelets are near-normal and no recurrent bleeding episodes. However, continue to defer on anticoagulation. recommend outpt f/u with her primary Packing Shed Supervisor in [place] (6) Thrombocytopenia: Likely sepsis induced, anticoagulation/heparin deferred due to hx of sever e bleeding and thrombocytopenia Platelets continue to improve - now 160s (7) Acute on chronic anemia: Anemia of CKD/ESRD. S/p Retacrit injection and IV Venofer while here. H/H remain low but stable. Macrocytosis - some of this may be from hypothyroidism. B12/folate wnl. Fe studies normal on day of discharge (8) CHF (congestive heart failure): Chronic systolic CHF. EF 35%. Volume controlled with dialysis. Cont metoprolol succinate 50mg daily. (9) Central venous catheter in place: Now with new tunneled HD catheter placed 03/[address] Arevalo. Has left AC endograft that is not functioning well at this time and thus not using such. (10) HTN (hypertension): Continue home Metoprolol. Controlled. (11) IDDM (insulin dependent diabetes mellitus): Pharmacy glycemic team managing, now with hyperglycemia secondary to prednisone Adjustments have been made to insulin dosing while here but can return to usual doses of Lantus 12 units hs on discharge as only has one more day of prednisone (12) Pulmonary nodule: CT chest 03/17 with multiple nodular densities - may represent septic emboli or metastatic disease. Will obtain repeat chest CT in 6 weeks as outpatient to ensure resolution. (13) Morbid obesity with BMI of 50.0-59.9, adult: BMI 50 dispo - Pt feels like she is getting stronger each day-as there has been no SNF/rehab bed available, she wishes to go home with HH instead and family support today Total Time Total Time Spent Total Time Spent (In Minutes): 45 min Total Time Includes: Examination of the Patient, Discharge Planning, Medication Reconciliation and Communication With Other Providers (Nephrology) Discharge Plan Discharge Items Patient Disposition: Home - Home Health Services Reason For Visit: DIALYSIS,POSSIBLE PNEUMONIA Discharge Diagnosis: Staphylococcus bacteremia, dialysis catheter infection, septicemia, rapid atrial fibrillation Condition on Discharge: Good Activity: As commented below Lifting: Gradually increase as tolerated Bathing: No limitations Exercise/Sports: Gradually increase as tolerated Exercise Comment: with home PT/OT Non-emergency contact: Primary Care Provider, Packing Shed Supervisor and Block Breaker Call non-emergency contact if: you have any medication questions, your symptoms worsen and you have a fever Follow-up/Referrals: Rakesh Ochoa MD [Surgeon] - (Keep your usual hemodialysis appointments on Tuesdays, , and Saturdays ) Bhanu Murillo M.D. [Primary Care Provider] - 04/12/22 3:00 pm () Diet: Carb Consistent or DM2, Dialysis Renal and Low Sodium (2gm) Fluids: 1200ml (5 cups) Addtl Attending Provider Instructions: You were admitted with sepsis and had a blood stream infection coming from your dialysis catheter as the source of infection. You had low blood pressures a a rapid heart rhythm called atrial flutter. You are now significantly improved. Please continue to get the IV Vancomycin antibiotics at dialysis three times a week on Tuesdays, , and Saturdays, beginning this 04/09/22. The last day of antibiotics will be 04/30/22. Your previously infected right IJ HD catheter was removed on 03/15/22 and you had a new one placed by Dr. Arevalo on 03/22/22. You developed a rash on your arms/legs from the IV cefazolin antibiotic and this was stopped. Please take one more day of prednisone 40mg on 04/08/22 and then stop. You can take benadryl as needed for itching. This should continue to resolve over the next few weeks. You were also diagnosed with hypothyroidism while you were here which is a low functioning thyroid gland. You were started on levothyroxine to replace your t hyroid hormone. Please have your primary care doctor check your thyroid function blood work in about 1 month. For the rapid atrial fibrillation, you were started on a medication called amiodarone 200mg twice a day-please continue this medication to keep you from going back into that abnormal heart rhythm. Follow up with your Packing Shed Supervisor within 2-3 weeks. You had a chest CT scan which showed some nodules. This may have been related to your infection, but it is not entirely clear. Please make sure your PCP orders a repeat chest CT in 6 weeks as outpatient to ensure resolution. Pending Studies at Discharge: No Stand-Alone Forms: My Warp 9, Smoking Cessation Medications and DC Order Prescriptions: New vancomycin 1,000 mg recon soln 1,000 mg IV 3XWK Qty: 10 RF: 0 amiodarone 200 mg Tablet 200 mg PO BIDM Qty: 60 RF: 0 levothyroxine 25 mcg capsule 25 mcg PO DAILY Qty: 30 RF: 0 prednisone 20 mg Tablet 40 mg PO QAM 1 Days Qty: 2 RF: 0 Continued atorvastatin 20 mg tablet 20 mg PO QAM RF: 0 insulin glargine [Lantus U-100 Insulin] 100 unit/mL Solution 12 unit SUBCUT HS RF: 0 metoprolol succinate 50 mg tablet extended release 24 hr 50 mg PO QAM RF: 0 Renal Caps 1 mg Capsule 1 cap PO QAM RF: 0 ezetimibe [Zetia] 10 mg Tablet 10 mg PO QAM RF: 0 calcium acetate(phosphat bind) 667 mg capsule 1,334 mg PO TIDM RF: 0 Changed furosemide [Lasix] 80 mg Tablet 80 mg PO 4XWK Qty: 0 RF: 0 Lokelma 10 gram powder in packet 10 g PO 4XWK Qty: 0 RF: 0 Discharge Orders: Discharge Order (Routine); Ordered 04/07/22 Ordered By: Joanna Espinosa Admission Data Admit Date/Time: 03/14/22 09:26 Attending Provider: Joanna Espinosa Admit Provider: Adrianna Ordoñez Primary Care Provider: Bhanu Murillo Other Providers: Rakesh Ochoa ; Lobito Galloway ; Juan Mukherjee ; Kalpesh Arevalo ; Lucian Valencia ; Jovanny Cerda ; Jose Ordoñez I. ; Dangelo Goff II ; Marija Paula ; Sterling Zhu ; Rayn Crawford. ; [facility],Care Coding Level of Care Code D/C DAY MANAGEMENT >30 MINS Diagnoses ESRD (end stage renal disease) on dialysis N18.6; Z99.2 Leukocytoclastic vasculitis M31.0 Hypothyroidism E03.9 Severe sepsis A41.9; R65.20 Rapid atrial fibrillation I48.91 Thrombocytopenia D69.6 Acute on chronic anemia D64.9 CHF (congestive heart failure) I50.9 Central venous catheter in place Z78.9 HTN (hypertension) I10 IDDM (insulin dependent diabetes mellitus) Pulmonary nodule R91.1 Morbid obesity with BMI of 50.0-59.9, adult E66.01; Z68.43
[2022-04-07] MEDS ORDERED: INSULIN GLARGINE SOLOSTAR 100 UNITS/ML 3 ML PEN SC ONE ×2 (12:30→21:00)
== END 2022-04-07 18:21 | disposition home health service (06) | DRG 314 ==
LOC: 2W 09:26 → SUATTDRO 09:26 → 1E 22:11 → 2E 03-18 15:25 → 3N 03-27 14:54

== ENCOUNTER 2022-09-05 11:49 | Observation (INO) ==
--- NOTE | 2022-09-05 12:26 | Emergency Department Note ---
Impression & Plan Liver laceration, Hyperkalemia, Weakness, Vomiting and diarrhea ED Provider Note NAME: MARCK CHRISTENSEN AGE: 62 SEX: F : 1960 ARRIVES VIA: Ambulance INFORMANT: Patient ED PROVIDER(S): Jose Ramon Arshad DO CHIEF COMPLAINT: weakness HPI: Patient is a 62-year-old female with a past medical history of CHF, hypertension, insulin-dependent diabetic, end-stage renal disease with last dialysis was last Monday. She missed Monday and Monday due to the holiday. She consequently is scheduled for tomorrow. She was seen and evaluated last night but notes she has gotten significantly weaker and cannot get around. Denies any headache or change in vision. No new chest pain or shortness of breath. No belly pain but admits to persistent nausea and vomiting. She is not able to eat or drink anything. She denies any urinary symptoms and does make intermittent urine. Persistent diarrhea since yesterday. Vomiting has been present since Monday of last week. No recent surgeries and denies any abdominal trauma recently that she can think of. ROS: See above HPI for pertinent positives & negatives. A total of 10 systems reviewed and were otherwise negative. PAST MEDICAL HISTORY:See Below PAST SURGICAL HISTORY:See Below FAMILY HISTORY:See Below SOCIAL HISTORY:See Below HOME MEDICATIONS:See Below ALLERGIES:See Below VITALS:See Below PHYSICAL EXAMINATION: GENERAL: Sitting up in bed, alert, morbidly obese, disheveled, on NC EYE EXAM: normal conjunctiva. OROPHARYNX: no exudate, no erythema, lips, buccal mucosa, and tongue normal and mucous membranes are moist NECK: supple, no nuchal rigidity, no adenopathy, non-tender LUNGS: Clear to auscultation. Normal star but distantst wall mechanics HEART: Distant, S1 normal and S2 normal ABDOMEN: abdomen soft, non-tender, normo-active bowel sounds, no masses, no rebound or guarding. UPPER EXTREMITIES: upper extremities are grossly normal. LOWER EXTREMITIES: No pitting edema. NEURO EXAM: Normal sensorium, cranial nerves II-XII grossly intact, normal speech, no gross weakness of arms, no gross weakness of legs. MEDICAL DECISION MAKING: Patient is a 62-year-old morbidly obese female that presents the ER for the above-stated complaint which consist of nausea vomiting and diarrhea. She notes she feels very weak and rundown. Denies any trauma. IV was established blood w ork was obtained. Labs show no significant leukocytosis. Hemoglobin 9.5. BMP with a potassium of 5.4. BUN elevated at 118 and a creatinine of 16. LFTs bilirubin was unremarkable. Troponin elevated 79 which is actually improved from her baseline. She has no chest pain or shortness of breath. Lipase normal. COVID-negative. CT abdomen pelvis was performed due to the persistent nausea vomiting and diarrhea that just started. CT shows a liver laceration. This was discussed with Dr. Luis Montero who notes that this is a grade 2 liver laceration but appears to be old. He also discussed this with his colleague Dr. Barlow who agreed. I did discuss the case as well with our general surgeon Dr. Dat Henao who also agree that this is likely old but with this finding would prefer this to be transfered. I discussed with the patient and she would prefer to go to [facility]. As this is likely traumatic at some point consult did [facility] and discussed with the trauma surgeon. They initially wanted to know what grade it was as 3 or less with stated Una and 4 and 5 would go to [facility]. I rediscussed with her radiologist and they noted was a grade 2 and then read discussed with [facility]. They accepted but under the medicine service as this is likely old. Trauma surgeon was Dr. Gastelum. Hospitalist was Dr. Lockwood who accepted the patient. They noted that I will likely be over 24 hours. Following this I discussed the case with Dr. Yefri Garcia who accepted the patient for admission until [facility] has a bed. We will hold [facility] for now. Triage Nursing notes reviewed. Limited review of prior medical records performed Vital Signs: reviewed and remarkable for HTN Differential diagnosis: Differential diagnoses includes but is not limited to gastritis, peptic ulcer disease, GERD, gallbladder disease, pancreatitis, small bowel obstruction, acute coronary syndrome, pericarditis, ischemic bowel, irritable bowel disease, irritable bowel syndrome, appendicitis, diverticulitis, malignancy, hernia, urinary tract infection, torsion, perforation, trauma, infectious. ER treatment provided: See below Diagnostics interpreted by me: ECG: Sinus rhythm rate of 66 First-degree AV block Right axis QTC 482 No significant change from previous performed yesterday Cardiac Monitoring: An order was placed for continuous cardiac monitoring. The monitor shows a rate of 70 with sinus rhythm. Laboratory studies: As stated above and show below. Imaging studies: CT abdomen pelvis as described above Consultation(s): Discussed with our radiologist as described above as well as her surgeon Dr. Benedict Henao as well as [facility] trauma surgery and out to the hospitalist Dr. Lockwood who accepted the patient. Procedures: none Critical Care: I have personally spent 32 minutes of critical care time in the direct management of this patient. This includes bedside care, interpretation of diagnostic studies, and testing, discussion with consultants, patient, and family members, and other required patient management activities. This 32 minutes is in excess of all separately billable procedures. Past Med/Surg History Medical History AV fistula Cardiomyopathy Central venous line infection CHF (congestive heart failure) Chronic anemia DVT (deep venous thrombosis) ESRD (end stage renal disease) on dialysis HTN (hypertension) Hypothyroidism IDDM (insulin dependent diabetes mellitus) Necrotizing fasciitis Paroxysmal atrial fibrillation Surgical History History of cholecystectomy History of lumbar surgery Family History Other Family history non-contributory Social History Smoking Status: Former smoker Tobacco Type: Cigarettes Second Hand Exposure: No; Hx Alcohol Use: No Hx Substance Use: No Preferred Language: Romansh Communication Ability: Effective Test Car Driver Required: No Beliefs That Will Affect Care: None marital status: Current Living Situation: Alone Current Living Situation Comment: Niece lives next door Feels Safe at Home: Yes Assistive Devices: Walker Allergies Allergies Allergy/AdvReac Type Severity Reaction Status Date / Time cefazolin Allergy 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 metformin AdvReac Intermediate Diarrhea Verified 11/16/21 16:52 Home Meds Home Medications Medication Instructions Recorded Confirmed atorvastatin 20 mg tablet 20 mg PO QAM 02/08/22 11/28/22 calcium acetate(phosphat bind) 667 1,334 mg PO TIDM 11/16/21 09/05/22 mg capsule ezetimibe 10 mg tablet (Zetia) 10 mg PO QAM 11/16/21 09/05/22 insulin glargine 100 unit/mL 12 unit subcut HS 11/16/21 09/05/22 subcutaneous solution (Lantus U-100 Insulin) metoprolol succinate 50 mg 50 mg PO QAM 11/16/21 03/14/22 tablet,extended release 24 hr vitamin B complex and vitamin C 1 cap PO QAM 11/16/21 03/14/22 no.20-folic acid 1 mg capsule (Renal Caps) albuterol sulfate 90 mcg/actuation See Rx Instructions .Route .COMPLEX 09/05/22 09/05/22 aerosol inhaler apixaban 2.5 mg tablet (Eliquis) 2.5 mg PO BID 09/05/22 09/05/22 lorazepam 0.5 mg tablet 0.5 mg TID PRN Anxiety 09/05/22 09/05/22 omeprazole 20 mg capsule,delayed 20 mg PO DAILY 09/05/22 09/05/22 release Previous Rx's Medication Instructions Recorded amiodarone 200 mg tablet 200 mg PO BIDM #60 tabs 04/07/22 furosemide 80 mg tablet (Lasix) 80 mg PO 4XWK #0 tabs 04/07/22 levothyroxine 25 mcg capsule 25 mcg PO DAILY #30 caps 04/07/22 sodium zirconium cyclosilicate 10 10 g PO 4XWK #0 ea 04/07/22 gram oral powder packet (Lokelma) vancomycin 1,000 mg intravenous 1,000 mg IV 3XWK #10 ea 04/07/22 injection Results & Data (ED) Vital Signs Vital Signs - 24 hr 09/05/22 12:20 09/05/22 12:15 09/05/22 12:30 Temperature 36.9 C Temperature Source Oral Pulse Rate 88 65 67 Pulse Rate from SpO2 Sensor Respiratory Rate 18 20 22 Respiratory Effort / Characteristics Non-Labored Spontaneous Respiratory Depth Normal Respiratory Pattern Regular Blood Pressure 114/58 L 132/52 L Blood Pressure Mean 76 78 Blood Pressure Position Lying Pulse Oximetry 95 95 97 Oxygen Delivery Method Nasal Cannula Nasal Cannula Nasal Cannula Oxygen Flow Rate 6 6 4 Sepsis Recent Fever Within 48 Hours No Sepsis New/Unexplained Change in Mental Status N/A Sepsis Action Taken by Nursing No Action Required 09/05/22 13:54 09/05/22 14:00 09/05/22 14:31 Temperature Temperature Source Pulse Rate 66 64 Pulse Rate from SpO2 Sensor Respiratory Rate 20 Respiratory Effort / Characteristics Respiratory Depth Respiratory Pattern Blood Pressure 120/60 127/53 L 96/66 L Blood Pressure Mean 80 77 76 Blood Pressure Position Pulse Oximetry 96 99 Oxygen Delivery Method Nasal Cannula Nasal Cannula Oxygen Flow Rate 4 4 Sepsis Recent Fever Within 48 Hours Sepsis New/Unexplained Change in Mental Status Sepsis Action Taken by Nursing 09/05/22 15:01 09/05/22 15:40 09/05/22 15:41 Temperature Temperature Source Pulse Rate 65 65 Pulse Rate from SpO2 Sensor 65 Respiratory Rate 22 23 Respiratory Effort / Characteristics Respiratory Depth Respiratory Pattern Blood Pressure 119/54 L 107/52 L 107/52 L Blood Pressure Mean 75 70 70 Blood Pressure Position Pulse Oximetry 99 100 97 Oxygen Delivery Method Nasal Cannula Nasal Cannula Nasal Cannula Oxygen Flow Rate 4 4 2 Sepsis Recent Fever Within 48 Hours Sepsis New/Unexplained Change in Mental Status Sepsis Action Taken by Nursing 09/05/22 16:00 09/05/22 16:30 Temperature Temperature Source Pulse Rate 64 66 Pulse Rate from SpO2 Sensor Respiratory Rate 23 23 Respiratory Effort / Characteristics Respiratory Depth Respiratory Pattern Blood Pressure 105/73 120/61 Blood Pressure Mean 83 80 Blood Pressure Position Pulse Oximetry 97 93 Oxygen Delivery Method Nasal Cannula Nasal Cannula Oxygen Flow Rate 2 2 Sepsis Recent Fever Within 48 Hours Sepsis New/Unexplained Change in Mental Status Sepsis Action Taken by Nursing Laboratory Data Result diagrams: 09/05/22 13:16 09/05/22 13:16 Lab Results 09/05/22 09/05/22 09/05/22 Range/Units 13:03 13:16 13:16 WBC 5.53 (4.8-10.8) K/ul RBC 2.80 L (3.93-5.22) M/uL Hgb 9.5 L (12.0-16.0) g/dl POC Hgb (12.0-16.0) g/dl Hct 30.5 L (34.1-44.9) % POC Hct (37-47) % MCV 108.9 H (80.0-100.0) fL MCH 33.9 (25.0-34.0) pg MCHC 31.1 L (32.0-36.0) g/dL RDW Std Deviation 73.9 H (36.4-46.3) fL RDW Coeff of Wiley 19.1 H (11.5-14.5) % Plt Count 110 L (130-400) K/uL MPV 11.4 (9.4-12.3) fL Immature Gran % (Auto) 0.4 % Neut % (Auto) 80.6 % Lymph % (Auto) 10.5 % [place] % (Auto) 7.8 % Eos % (Auto) 0.2 % Baso % (Auto) 0.5 % Neut # (Auto) 4.46 (1.4-6.5) K/uL Lymph # (Auto) 0.58 L (1.2-3.4) K/uL [place] # (Auto) 0.43 (0.24-0.82) K/uL Eos # (Auto) 0.01 (0-0.50) K/uL Baso # (Auto) 0.03 (0-0.2) K/uL Immature Gran # (Auto) 0.02 (0.00-0.02) K/uL POC Sodium (135-144) mmol/L Sodium 137 (136-145) mmol/L POC Potassium (3.3-5.0) mmol/L Potassium 5.4 H (3.5-5.1) mmol/L POC Chloride (101-112) mmol/L Chloride 97 L (98-107) mmol/L Carbon Dioxide 22 (21-32) mmol/L POC Total CO2 (24-31) mmol/L Anion Gap 18 H (3-11) POC Anion Gap (16-25) mmol/L POC BUN (7-18) mg/dl BUN 118 H (6-23) mg/dl Creatinine 16.02 H* D (0.6-1.2) mg/dl POC Creatinine (0.6-1.3) mg/dl Est Cr Clr Drug Dosing 5.2 ml/min Est GFR ( Amer) 2.5 ml/min Est GFR (Non-Af Amer) 2.1 ml/min BUN/Creatinine Ratio 7.4 L (10-20) Glucose 122 H (70-99(Fasting)) mg/dl POC Glucose (other) (70-99) mg/dl Calcium 8.2 L (8.5-10.1) mg/dl POC Ioniz Calcium Sarah (1.12-1.32) mmol/l Total Bilirubin 0.4 (0.2-1.0) mg/dl AST 15 (13-39) U/L ALT 22 (7-52) U/L Alkaline Phosphatase 72 (34-104) U/L Troponin I High Sens 79.1 H* D (0-14) pg/ml Total Protein 6.7 (6.0-8.3) gm/dl Albumin 3.3 L (3.4-5.0) gm/dl Globulin 3.4 (2.5-4.0) gm/dl Albumin/Globulin Ratio 1.0 (0.9-2) Lipase 38 (11-82) U/L SARS-CoV-2, RNA, NAAT NEGATIVE (NEGATIVE) 09/05/22 Range/Units 13:24 WBC (4.8-10.8) K/ul RBC (3.93-5.22) M/uL Hgb (12.0-16.0) g/dl POC Hgb 10.2 L (12.0-16.0) g/dl Hct (34.1-44.9) % POC Hct 30 L (37-47) % MCV (80.0-100.0) fL MCH (25.0-34.0) pg MCHC (32.0-36.0) g/dL RDW Std Deviation (36.4-46.3) fL RDW Coeff of Wiley (11.5-14.5) % Plt Count (130-400) K/uL MPV (9.4-12.3) fL Immature Gran % (Auto) % Neut % (Auto) % Lymph % (Auto) % [place] % (Auto) % Eos % (Auto) % Baso % (Auto) % Neut # (Auto) (1.4-6.5) K/uL Lymph # (Auto) (1.2-3.4) K/uL [place] # (Auto) (0.24-0.82) K/uL Eos # (Auto) (0-0.50) K/uL Baso # (Auto) (0-0.2) K/uL Immature Gran # (Auto) (0.00-0.02) K/uL POC Sodium 136 (135-144) mmol/L Sodium (136-145) mmol/L POC Potassium 5.2 H (3.3-5.0) mmol/L Potassium (3.5-5.1) mmol/L POC Chloride 101 (101-112) mmol/L Chloride (98-107) mmol/L Carbon Dioxide (21-32) mmol/L POC Total CO2 23 L (24-31) mmol/L Anion Gap (3-11) POC Anion Gap 18.0 (16-25) mmol/L POC BUN 139 H* (7-18) mg/dl BUN (6-23) mg/dl Creatinine (0.6-1.2) mg/dl POC Creatinine 16.4 H* (0.6-1.3) mg/dl Est Cr Clr Drug Dosing ml/min Est GFR ( Amer) ml/min Est GFR (Non-Af Amer) ml/min BUN/Creatinine Ratio (10-20) Glucose (70-99(Fasting)) mg/dl POC Glucose (other) 122 H (70-99) mg/dl Calcium (8.5-10.1) mg/dl POC Ioniz Calcium Sarah 1.01 L (1.12-1.32) mmol/l Total Bilirubin (0.2-1.0) mg/dl AST (13-39) U/L ALT (7-52) U/L Alkaline Phosphatase (34-104) U/L Troponin I High Sens (0-14) pg/ml Total Protein (6.0-8.3) gm/dl Albumin (3.4-5.0) gm/dl Globulin (2.5-4.0) gm/dl Albumin/Globulin Ratio (0.9-2) Lipase (11-82) U/L SARS-CoV-2, RNA, NAAT (NEGATIVE) Administered Medications Discontinued Medications Ioversol (Optiray 350 100ml) 89 ml IV ONCE ONE Stop: 09/05/22 13:49 Last Admin: 09/05/22 13:42 Dose: 89 ml Documented By: MEGA Imaging Data Radiologist's Impression: Abdomen/Pelvis CT 09/05/22 12:[address] WITH IV CONTRAST CT DOSE: 2066.84 mGy.cm HISTORY: Generalized abdominal pain. Nausea. Vomiting. Diarrhea. TECHNIQUE: Multiaxial CT images of the abdomen and pelvis were performed following the use of intravenous contrast. A dose lowering technique was utilized adhering to the principles of ALARA. COMPARISON STUDY: Chest CT 03/17/2022. FINDINGS: A few bibasilar linear densities consistent with subsegmental atelectasis. No pneumoperitoneum. No pneumatosis. Advanced degenerative changes at the bilateral hips. Posterior decompression within the lower lumbar spine. Mild anterior wedging at T11 which is likely chronic. No acute fractures identified. The heart is mildly enlarged. Mild diffuse body wall edema. The spleen, adrenal glands, and pancreas unremarkable. A 9 mm hypodense lesion within the right kidney is too small to characterize. Moderate bilateral cortical renal thinning/atrophy. No renal or ureteral stones. No hydronephrosis. Bladder wall thickening is likely due to underdistention. No retroperitoneal lymphadenopathy or retroperitoneal hematoma. Moderate calcified plaque within the normal caliber abdominal aorta. The main portal vein is patent. There is a linear hypodensity within the anterior segment of the right hepatic lobe best seen on images 92 through 117. This extends to the gallbladder fossa and the anterior capsule. This measures upwards of 10 cm in length and up to 2.6 cm in depth. This is highly suspicious for a hepatic laceration. Prior lelo cystectomy. Trace fluid within the gallbladder fossa and surrounding the second portion of duodenum. Over, no definite bowel wall thickening identified. No evidence for bowel obstruction. Trace pelvic free fluid. The uterus and adnexa are unremarkable. A few colonic diverticula. No evidence for acute diverticulitis. Normal appendix. There is a cluster of small soft tissue nodules within the omentum with the largest on image 183 measuring 6 mm. IMPRESSION: 1. There is a linear hypodensity within the periphery of the anterior segment of the right hepatic lobe which extends to the gallbladder fossa . This measures up to 10 cm in length and 2.6 cm in depth. This is highly suspicious for hepatic laceration. However, there is no associated acute subcapsular hematoma or acute intraperitoneal hemorrhage identified. There is trace low-density fluid within the gallbladder fossa and surrounding the second portion of duodenum which could represent subacute hemorrhage. A mild duodenitis is considered less likely but not entirely excluded. Therefore, this may represent a subacute hepatic laceration/injury. Clinical correlation recommended for subacute trauma or subacute postoperative changes. 2. No bowel wall thickening or obstruction. 3. Colonic diverticulosis. No evidence for acute diverticulitis. 4. A few subcentimeter soft tissue nodules within the right anterior omentum. These are indeterminate. 6 month abdomen and pelvis CT follow-up recommended to ensure stability. ACT 112: Positive. There are findings on this exam that require communication between the performing entity and the patient following Patient Test Result Information Act ([place] Act 112) guidelines. Electronically signed by: Luis Franco M.D. 09/05/2022 2:09 PM Chest X-Ray 09/05/22 15:17 XR chest 1V portable CLINICAL HISTORY: Shortness of breath. COMPARISON STUDY: Chest CT March 17, 2022. Chest radiograph September 04, 2022. FINDINGS: A dual-lumen left internal jugular catheter is in place. Trace left pleural effusion is present. There is no pneumothorax. Bibasilar opacities favor atelectasis. There is no consolidation to suggest pneumonia. Pulmonary vascular congestion is noted without overt pulmonary edema. Cardiomegaly is unchanged. IMPRESSION: 1. Cardiomegaly. Pulmonary vascular congestion without overt pulmonary edema. 2. Trace left pleural effusion. 3. No consolidation to suggest pneumonia. ACT 112: Negative or not required by law. Electronically signed by: David Barlow M.D. 09/05/2022 3:54 PM Discharge Plan Visit Data Chief Complaint: Abdominal Pain ED Provider: Jose Ramon Arshad Discharge Problem: Liver laceration, Hyperkalemia, Weakness, Vomiting and diarrhea Forms Stand Alone Forms: My [facility] [employer] book Prescriptions Prescriptions: No Action atorvastatin 20 mg tablet 20 mg PO QAM insulin glargine [Lantus U-100 Insulin] 100 unit/mL Solution 12 unit SUBCUT HS metoprolol succinate 50 mg tablet extended release 24 hr 50 mg PO QAM Renal Caps 1 mg Capsule 1 cap PO QAM ezetimibe [Zetia] 10 mg Tablet 10 mg PO QAM calcium acetate(phosphat bind) 667 mg capsule 1,334 mg PO TIDM vancomycin 1,000 mg recon soln 1,000 mg IV 3XWK Qty: 10 0RF Rx Instructions: with hemodialysis on Monday, , Monday amiodarone 200 mg Tablet 200 mg PO BIDM Qty: 60 0RF levothyroxine 25 mcg capsule 25 mcg PO DAILY Qty: 30 0RF furosemide [Lasix] 80 mg Tablet 80 mg PO 4XWK Qty: 0 0RF Rx Instructions: ONLY TAKE ON NON-DIALYSIS DAYS (SUN,MON,WED,FRI) Lokelma 10 gram powder in packet 10 g PO 4XWK Qty: 0 0RF Rx Instructions: ONLY TAKE ON NON-DIALYSIS DAYS (MON,MON,WED,MON) lorazepam 0.5 mg tablet 0.5 mg TID PRN (Reason: Anxiety) omeprazole 20 mg capsule,delayed release(DR/EC) 20 mg PO DAILY albuterol sulfate 90 mcg/actuation HFA aerosol inhaler See Rx Instructions .ROUTE .COMPLEX Rx Instructions: 2 puffs prn Eliquis 2.5 mg tablet 2.5 mg PO BID Referrals Referrals: Bhanu Murillo M.D. [Primary Care Provider] -
[2022-09-05 13:33] LABS: Basophils # (auto) 0.03 K/uL (0-0.2); Basophils % (auto) 0.5 %; Eosinophils # (auto) 0.01 K/uL (0-0.50); Eosinophils % (auto) 0.2 %; Hematocrit (blood only) 30.5 % (34.1-44.9); Hemoglobin 9.5 g/dl (12.0-16.0); Immature Granulocytes # (auto) 0.02 K/uL (0.00-0.02); Immature Granulocytes % (auto) 0.4 %; Lymphocytes # (auto) 0.58 K/uL (1.2-3.4); Lymphocytes % (auto) 10.5 %; Mean Corpuscular Hemoglobin 33.9 pg (25.0-34.0); Mean Corpuscular Hgb Conc 31.1 g/dL (32.0-36.0); Mean Corpuscular Volume 108.9 fL (80.0-100.0); Mean Platelet Volume 11.4 fL (9.4-12.3); Monocytes # (auto) 0.43 K/uL (0.24-0.82); Monocytes % (auto) 7.8 %; Neutrophils # (auto) 4.46 K/uL (1.4-6.5); Neutrophils % (auto) 80.6 %; Platelet Count 110 K/uL (130-400); RDW Coefficient of Variation 19.1 % (11.5-14.5); RDW Standard Deviation 73.9 fL (36.4-46.3); White Blood Count 5.53 K/ul (4.8-10.8)
[2022-09-05 13:38] LABS: iSTAT Creatinine 16.4 mg/dl (0.6-1.3); iSTAT Hemoglobin 10.2 g/dl (12.0-16.0); iSTAT Ionized Calcium 1.01 mmol/l (1.12-1.32); iSTAT Potassium 5.2 mmol/L (3.3-5.0)
[2022-09-05] MEDS ORDERED: OPTIRAY 350 100ml IV ONE (13:48)
[2022-09-05 14:05] LABS: Albumin Level 3.3 gm/dl (3.4-5.0); BUN Creatinine Ratio 7.4 (10-20); Bilirubin,Total 0.4 mg/dl (0.2-1.0); Calcium 8.2 mg/dl (8.5-10.1); Creatinine Clr Calc Pharmacy 5.2 ml/min; Est GFR (African American) 2.5 ml/min; Est GFR (Non-African American) 2.1 ml/min; Globulin 3.4 gm/dl (2.5-4.0); Potassium 5.4 mmol/L (3.5-5.1); Total Protein 6.7 gm/dl (6.0-8.3)
--- NOTE | 2022-09-05 14:12 | CT Scan Report ---
ABDOMEN AND PELVIS CT WITH IV CONTRAST CT DOSE: 2066.84 mGy.cm HISTORY: Generalized abdominal pain. Nausea. Vomiting. Diarrhea. TECHNIQUE: Multiaxial CT images of the abdomen and pelvis were performed following the use of intrave nous contrast. A dose lowering technique was utilized adhering to the principles of ALARA. COMPARISON STUDY: Chest CT 03/17/2022. FINDINGS: A few bibasilar linear densities consistent with subsegmental atelectasis. No pneumoperiton eum. No pneumatosis. Advanced degenerative changes at the bilateral hips. Posterior decompression wit hin the lower lumbar spine. Mild anterior wedging at T11 which is likely chronic. No acute fractures identified. The heart is mildly enlarged. Mild diffuse body wall edema. The spleen, adrenal glands, a nd pancreas unremarkable. A 9 mm hypodense lesion within the right kidney is too small to characteriz e. Moderate bilateral cortical renal thinning/atrophy. No renal or ureteral stones. No hydronephrosis . Bladder wall thickening is likely due to underdistention. No retroperitoneal lymphadenopathy or ret roperitoneal hematoma. Moderate calcified plaque within the normal caliber abdominal aorta. The main portal vein is patent. There is a linear hypodensity within the anterior segment of the right hepatic lobe best seen on images 92 through 117. This extends to the gallbladder fossa and the anterior caps ule. This measures upwards of 10 cm in length and up to 2.6 cm in depth. This is highly suspicious fo r a hepatic laceration. Prior cholecystectomy. Trace fluid within the gallbladder fossa and surroundi ng the second portion of duodenum. Over, no definite bowel wall thickening identified. No evidence fo r bowel obstruction. Trace pelvic free fluid. The uterus and adnexa are unremarkable. A few colonic d iverticula. No evidence for acute diverticulitis. Normal appendix. There is a cluster of small soft t issue nodules within the omentum with the largest on image 183 measuring 6 mm. IMPRESSION: 1. There is a linear hypodensity within the periphery of the anterior segment of the right hepatic lo be which extends to the gallbladder fossa . This measures up to 10 cm in length and 2.6 cm in depth. This is highly suspicious for hepatic laceration. However, there is no associated acute subcapsular h ematoma or acute intraperitoneal hemorrhage identified. There is trace low-density fluid within the g allbladder fossa and surrounding the second portion of duodenum which could represent subacute hemorr maryam. A mild duodenitis is considered less likely but not entirely excluded. Therefore, this may repr esent a subacute hepatic laceration/injury. Clinical correlation recommended for subacute trauma or s ubacute postoperative changes. 2. No bowel wall thickening or obstruction. 3. Colonic diverticulosis. No evidence for acute diverticulitis. 4. A few subcentimeter soft tissue nodules within the right anterior omentum. These are indeterminate . 6 month abdomen and pelvis CT follow-up recommended to ensure stability. ACT 112: Positive. There are findings on this exam that require communication between the performing entity and the patient following Patient Test Result Information Act ([place] Act 112) guidelines. Electronically signed by: Luis Franco M.D. 09/05/2022 2:09 PM
[2022-09-05 15:26] LABS: Troponin I High Sensitivity 79.1 pg/ml (0-14)
--- NOTE | 2022-09-05 15:47 | History & Physical Report ---
Date of Service September 05, 2022 Assessment & Plan (1) Weakness: Plan: 8 days of epigastric pain, nausea, vomiting every other day with and without PO intake and onset of loose, nonbloody stools in the past few days. Likely that her weakness is 2/2 a gastritis/duodenitis or other GI illness limiting her p.o. intake. Also worsened by ESRD, missing dialysis twice last week and clearly due for it. Stool PCR panel, start PPI and H2 monica, carafate. PT/OT to evaluate and treat while admitted. (2) Liver laceration: Plan: More or less an incidental finding found on CT abd/pelvis which was ordered for nausea, vomiting, diarrhea. CT A/P: linear hypodensity within the periphery of the anterior segment of right hepatic lobe extending into the gallbladder fossa measuring 10 cm in l ength and 2.7 cm in depth highly suspicious for hepatic laceration but there is no associated acute subcapsular hematoma or acute intraperitoneal hemorrhage. There is trace low-density fluid within the gallbladder fossa and surrounding the second portion of the duodenum which could represent a subacute hemorrhage. No recent falls or traumas. ED provider spoke to both general surgery here at [facility] as well as trauma surgeon [facility] regarding findings. Both services are in agreement that this is most likely a chronic laceration and does not require emergent treatment. She has been accepted to [facility] for transfer, however bed will not be available for 24 hours. Holding Eliquis for now. Consult general surgery to follow with patient while she is admitted to our [facility]. N.p.o. for now due to nausea/vomiting, can upgrade diet as tolerated by patient when cleared by surgery. (3) ESRD (end stage renal disease) on dialysis: Plan: On dialysis T//Mon however for scheduled Monday, Monday, Monday if last week due to the holiday--has had dialysis 1 week ago Monday, 08/29, missed addit ional sessions due to illness. [facility] consulted, appreciate their recommendations and assistance with this patient. K 5.4, BUN 118, creatinine 16, calcium 8.2. Magnesium, phosphorus not ordered with initial ED labs. Patient still makes urine. NPO for now, when diet is advanced, will require renal diet. BMP daily. (4) IDDM (insulin dependent diabetes mellitus): Plan: On 12 units of Lantus at night with SSI at home. Continue basal/bolus insulin, 25% reduction in basal dosing while NPO. A1c in the morning.--may not be accurat in ESRD. Renal/DM diet when approved for p.o. intake. (5) CHF (congestive heart failure): Plan: Chronic systolic CHF. EF 35%. Volume controlled with dialysis. Continue Lasix 80 mg daily. - Strict I/Os, daily weights. (6) Chronic anemia: Plan: Hgb 9.5, at her baseline. Due to ESRD. History of A. fib, has been on Xarelto for the past 2 months, renally dosed at 2.5 mg twice daily. Reportedly she was started in June and supposed to be on it for only 2 months., Should be off by now has not made it to her PCP to officially have medication discontinued. She has a history of epistaxis in the past requiring 5 units pRBCs, which is why she had previously not been on any anticoagulation for A. fib. Regardless of all the above--we will be holding this for now given liver laceration. (7) Paroxysmal atrial fibrillation: Plan: Paroxysmal, not in A. fib on presentation today. Continued, remains on amiodarone 200 mg daily which she did take this morning, as well as Eliquis 2.5 mg twice daily. (8) Hypothyroidism: Plan: Continue levothyroxine 37.5 mcg daily. (9) HTN (hypertension): Plan: Metoprolol d/c'd for soft BPs. Plan - Admit to PCU while awaiting transfer. - SCDs for VTE ppx. - DNR/DNI. History of Present Illness Chief Complaint: Nausea, vomiting, diarrhea, generalized weakness ongoing for 1 week Primary Care Provider: Bhanu Murillo M.D. Zoya Solares is a 62-year-old female history of ESRD on dialysis is a 62-year-old female with a past medical history significant for ESRD on hemodialysis M/W/Sat hypertension, DM2, HFrEF, paroxysmal A. fib and history of GI bleeds, and anemia of chronic disease who is presenting today for weakness. She was seen last night in her ED for 1 week of generalized fatigue and body aches, with several episodes of nonbloody vomiting and abdominal pain. She missed dialysis twice this past week due to her symptoms and is scheduled for testing tomorrow. Her labs last evening were unremarkable, she tolerated clear liquids and was given IV hydration prior to discharge home. She presents today again with significant weakness over the past 24 hours. On presentation to the ED, her vital signs are within normal limits, and stable. On her usual 2L NC. Labs remarkable for potassium of 5.4, BUN of 118, creatinine 16, glucose 122, calcium 8.2, all at/near baseline and mildly elevated compared to last night's labs. Her troponin is 79.1, actually decreased from prior values from earlier this year. Her COVID is negative. She has no leukocytosis or left shift, and her anemia is at her baseline. CT A/P was ordered given several days of nausea vomiting and diarrhea and does show a linear hypodensity within the periphery of the anterior segment of right hepatic lobe extending into the gallbladder fossa measuring 10 cm in length and 2.7 cm in depth highly suspicious for hepatic laceration but there is no associated acute subcapsular hematoma or acute intraperitoneal hemorrhage. There is trace low-density fluid within the gallbladder fossa and surrounding the second portion of the duodenum which could represent a subacute hemorrhage. The case was discussed with both general surgery at our facility as well as the trauma surgeon at [facility], both services in agreement this is most likely a chronic liver laceration and does not require emergent treatment. She has been accepted at [facility] at [place] under the hospitalist service, with Dr. Ann as the accepting hospitalist. They have informed us a bed will not be available for 24 hours, therefore she will be admitted to our facility until transfer can be facilitated. 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 metformin AdvReac Intermediate Diarrhea Verified 11/16/21 16:52 Home Medications Medication Instructions Recorded Confirmed Type atorvastatin 20 mg tablet 20 mg PO QAM 11/16/21 09/05/22 History calcium acetate(phosphat bind) 667 1,334 mg PO TIDM 11/16/21 09/05/22 History mg capsule ezetimibe 10 mg tablet (Zetia) 10 mg PO QAM 11/16/21 09/05/22 History insulin glargine 100 unit/mL 12 unit subcut HS 11/16/21 09/05/22 History subcutaneous solution (Lantus U-100 Insulin) vitamin B complex and vitamin C 1 cap PO QAM 11/16/21 09/05/22 History no.20-folic acid 1 mg capsule (Renal Caps) amiodarone 200 mg tablet 200 mg PO BIDM #60 tabs 04/07/22 09/05/22 Rx furosemide 80 mg tablet (Lasix) 80 mg PO 4XWK #0 tabs 04/07/22 09/05/22 Rx sodium zirconium cyclosilicate 10 10 g PO 4XWK #0 ea 04/07/22 09/05/22 Rx gram oral powder packet (Lokelma) albuterol sulfate 90 mcg/actuation See Rx Instructions .Route .COMPLEX 09/05/22 09/05/22 History aerosol inhaler apixaban 2.5 mg tablet (Eliquis) 2.5 mg PO BID 09/05/22 09/05/22 History levothyroxine 25 mcg capsule 37.5 mcg PO DAILY 09/05/22 09/05/22 History omeprazole 20 mg capsule,delayed 20 mg PO DAILY 09/05/22 09/05/22 History release Past Med/Surg History Medical History AV fistula Cardiomyopathy Central venous line infection CHF (congestive heart failure) Chronic anemia DVT (deep venous thrombosis) ESRD (end stage renal disease) on dialysis HTN (hypertension) Hypothyroidism IDDM (insulin dependent diabetes mellitus) Necrotizing fasciitis Paroxysmal atrial fibrillation Surgical History History of cholecystectomy History of lumbar surgery Family History Other Family history non-contributory Social History Smoking Status: Former smoker Tobacco Type: Cigarettes Second Hand Exposure: No; Hx Alcohol Use: No Hx Substance Use: No Preferred Language: Bengali Communication Ability: Effective Speech Therapy Director Required: No Beliefs That Will Affect Care: None marital status: Current Living Situation: Alone Current Living Situation Comment: Niece lives next door Feels Safe at Home: Yes Assistive Devices: Walker Review of Systems Review of Systems: Constitutional: general weakness x 1 week; No fever/chills, fatigue, myalgias, anorexia, night sweats Eyes: No diplopia, no worsening or blurred vision ENT: normal hearing, no trouble swallowing Respiratory: No cough, sputum, dyspnea at rest or on exertion Cardiovascular: No chest pain, tightness or palpitations Abdomen: epigastric abdominal aching pain with nausea, intermittent vomiting and loose stools : Denies dysuria, hematuria, increased urgency/frequency, urinary retention Musculoskeletal: No joint pain, calf pain, swelling Neurologic: No weakness, numbness/tingling, or balance problems Psychiatric: No anxiety or depression Skin: No rash or itch Physical Exam Physical Exam: General: awake, alert, no apparent distress Head: Normocephalic, atraumatic ENT: PERRL, EOMI, no pharyngeal exudate, mucous membranes moist Chest: Clear to auscultation, on 2L NC, no adventitious breath sounds Cardiac: Regular rate and rhythm, no murmur, no JVD, normal peripheral pulses, good capillary refill Abdominal: NABS x 4 quadrants, soft, nontender to palpation, no rebound, guarding or tenderness Extremities: Normal inspection, no peripheral edema or erythema, calfs nontender to palpation Psych: Normal mood and affect Neuro: AAO x 3, strength intact bilaterally and rated 5/5, no motor deficits, speech is clear, no peripheral sensory deficits Skin: no rash or erythema Results & Data Results & Data ([facility]) Vital Signs (Past 12 Hours) Vital Signs Temp Pulse Resp BP Pulse Ox O2 Del Method O2 Flow Rate 09/05/22 13:54 66 120/60 96 Nasal Cannula 4 09/05/22 12:30 67 22 132/52 L 97 Nasal Cannula 4 09/05/22 12:15 65 20 95 Nasal Cannula 6 09/05/22 12:20 36.9 C 88 18 114/58 L 95 Nasal Cannula 6 Laboratory Results Abnormal lab results 09/05/22 09/05/22 09/05/22 Range/Units 13:16 13:16 13:24 RBC 2.80 L (3.93-5.22) M/uL Hgb 9.5 L (12.0-16.0) g/dl POC Hgb 10.2 L (12.0-16.0) g/dl Hct 30.5 L (34.1-44.9) % POC Hct 30 L (37-47) % MCV 108.9 H (80.0-100.0) fL MCHC 31.1 L (32.0-36.0) g/dL RDW Std Deviation 73.9 H (36.4-46.3) fL RDW Coeff of Wiley 19.1 H (11.5-14.5) % Plt Count 110 L (130-400) K/uL Lymph # (Auto) 0.58 L (1.2-3.4) K/uL POC Potassium 5.2 H (3.3-5.0) mmol/L Potassium 5.4 H (3.5-5.1) mmol/L Chloride 97 L (98-107) mmol/L POC Total CO2 23 L (24-31) mmol/L Anion Gap 18 H (3-11) POC BUN 139 H* (7-18) mg/dl BUN 118 H (6-23) mg/dl Creatinine 16.02 H* D (0.6-1.2) mg/dl POC Creatinine 16.4 H* (0.6-1.3) mg/dl BUN/Creatinine Ratio 7.4 L (10-20) Glucose 122 H (70-99(Fasting)) mg/dl POC Glucose (other) 122 H (70-99) mg/dl Calcium 8.2 L (8.5-10.1) mg/dl POC Ioniz Calcium Sarah 1.01 L (1.12-1.32) mmol/l Troponin I High Sens 79.1 H* D (0-14) pg/ml Albumin 3.3 L (3.4-5.0) gm/dl Diagnostic Findings Abdomen/Pelvis CT 09/05/22 12:[address] WITH IV CONTRAST CT DOSE: 2066.84 mGy.cm HISTORY: Generalized abdominal pain. Nausea. Vomiting. Diarrhea. TECHNIQUE: Multiaxial CT images of the abdomen and pelvis were performed following the use of intravenous contrast. A dose lowering technique was utilized adhering to the principles of ALARA. COMPARISON STUDY: Chest CT 03/17/2022. FINDINGS: A few bibasilar linear densities consistent with subsegmental atelectasis. No pneumoperitoneum. No pneumatosis. Advanced degenerative changes at the bilateral hips. Posterior decompression within the lower lumbar spine. Mild anterior wedging at T11 which is likely chronic. No acute fractures identified. The heart is mildly enlarged. Mild diffuse body wall edema. The spleen, adrenal glands, and pancreas unremarkable. A 9 mm hypodense lesion within the right kidney is too small to characterize. Moderate bilateral cortical renal thinning/atrophy. No renal or ureteral stones. No hydronephrosis. Bladder wall thickening is likely due to underdistention. No retroperitoneal lymphadenopathy or retroperitoneal hematoma. Moderate calcified plaque within the normal caliber abdominal aorta. The main portal vein is patent. There is a linear hypodensity within the anterior segment of the right hepatic lobe best seen on images 92 through 117. This extends to the gallbladder fossa and the anterior capsule. This measures upwards of 10 cm in length and up to 2.6 cm in depth. This is highly suspicious for a hepatic laceration. Prior cholecystectomy. Trace fluid within the gallbladder fossa and surrounding the second portion of duodenum. Over, no definite bowel wall thickening identified. No evidence for bowel obstruction. Trace pelvic free fluid. The uterus and adnexa are unremarkable. A few colonic diverticula. No evidence for acute diverticulitis. Normal appendix. There is a cluster of small soft tissue nodules within the omentum with the largest on image 183 measuring 6 mm. IMPRESSION: 1. There is a linear hypodensity within the periphery of the anterior segment of the right hepatic lobe which extends to the gallbladder fossa . This measures up to 10 cm in length and 2.6 cm in depth. This is highly suspicious for hepatic laceration. However, there is no associated acute subcapsular hematoma or acute intraperitoneal hemorrhage identified. There is trace low-density fluid within the gallbladder fossa and surrounding the second portion of duodenum which could represent subacute hemorrhage. A mild duodenitis is considered less likely but not entirely excluded. Therefore, this may represent a subacute hepatic laceration/injury. Clinical correlation recommended for subacute trauma or subacute postoperative changes. 2. No bowel wall thickening or obstruction. 3. Colonic diverticulosis. No evidence for acute diverticulitis. 4. A few subcentimeter soft tissue nodules within the right anterior omentum. These are indeterminate. 6 month abdomen and pelvis CT follow-up recommended to ensure stability. ACT 112: Positive. There are findings on this exam that require communication between the performing entity and the patient following Patient Test Result Information Act ([place] Act 112) guidelines. Electronically signed by: Luis Franco M.D. 09/05/2022 2:09 PM ECG Additional Comments: Wide QRS rhythm Right axis deviation Non-specific intra-ventricular conduction delay Nonspecific T wave abnormality Abnormal ECG When compared with ECG of 04-SEP-2022 04:59, Previous ECG has undetermined rhythm, needs review. Code Status & VTE Plan Code Status DNR/DNI. Supervising Physician Co-Signing Physician Notes Patient seen and examined, chart reviewed, case discussed with Elisabet Hernandez PA-C and I agree with the assessment and plan as above except as otherwise noted Labs and images reviewed Zoya is seen at the bedside. Endorses weakness with 1 day of fatigue, nausea, 4-5 episodes of nonbloody/nonbilious emesis, and general malaise which caused her to miss dialysis. She denies shortness of breath at bedside, but reports she feels very tired initially. On subsequent recheck she reports she feels better and with more energy, and her nausea is starting to jeancarlos. Denies recent falls/injury. Denies abdominal pain at assessment. Patient noted to have incidental linear hypodensity suggestive of liver laceration which was reviewed extensively both by [place] surgery, our surgical team, and radiology. Case was discussed with ER provider and specialist, patient is recommended for transfer to [facility] but no bed will be available till tomorrow. Given that lack of suspected chronic and not high risk, okay to admit pending transfer per surgery. Recommend holding anticoagulation pending further evaluation/treatment, follow on telemetry overnight, and treat suspected unrelated gastritis symptoms as above. Nephro consulted for ESRD, no signs of need for emergent dialysis at time of admission. Lungs are diminished in the baseline, but otherwise clear. Heart rate is regular, abdomen is soft/nontender and without guarding. PG Care Time/CCT Total # of Minutes Spent Total Time Spent with Patient: Total time spent is greater than 50% in coordination of care (as documented) at patient's floor/unit and/or counseling patient: Coding Level of Care Code 50249 Initial Inpt Care Lvl 3 Diagnoses Weakness R53.1 Liver laceration S36.113A ESRD (end stage renal disease) on dialysis N18.6; Z99.2 IDDM (insulin dependent diabetes mellitus) CHF (congestive heart failure) I50.9 Chronic anemia D64.9 Paroxysmal atrial fibrillation I48.0 Hypothyroidism E03.9 HTN (hypertension) I10
--- NOTE | 2022-09-05 15:55 | XRay Report ---
XR chest 1V portable CLINICAL HISTORY: Shortness of breath. COMPARISON STUDY: Chest CT March 17, 2022. Chest radiograph September 04, 2022. FINDINGS: A dual-lumen left internal jugular catheter is in place. Trace left pleural effusion is pre sent. There is no pneumothorax. Bibasilar opacities favor atelectasis. There is no consolidation to s uggest pneumonia. Pulmonary vascular congestion is noted without overt pulmonary edema. Cardiomegaly is unchanged. IMPRESSION: 1. Cardiomegaly. Pulmonary vascular congestion without overt pulmonary edema. 2. Trace left pleural effusion. 3. No consolidation to suggest pneumonia. ACT 112: Negative or not required by law. Electronically signed by: David Barlow M.D. 09/05/2022 3:54 PM
--- NOTE | 2022-09-05 16:30 | Electrocardiogram Report ---
Test Reason : Blood Pressure : / mmHG Vent. Rate : 066 BPM Atrial Rate : 441 BPM P-R Int : 000 ms QRS Dur : 122 ms QT Int : 460 ms P-R-T Axes : 000 126 060 degrees QTc Int : 482 ms Sinus rhythm with 1st degree AV block Right axis deviation Non-specific intra-ventricular conduction delay Nonspecific T wave abnormality Abnormal ECG Confirmed by Lobito Galloway ([id number]) on 09/05/2022 4:29:42 PM Referred By: REFERRED SELF Confirmed By:Irvin Galloway
[2022-09-05 17:31] LABS: Appearance Urine Turbid (Clear); Bacteria Urine Automated 4+ (Negative); Bilirubin Urine Negative (Negative); Blood Urine 3+ (Negative); Color Urine Yellow; Epithelial Cell Urine Auto >30 /lpf (0-5); Glucose Urine UA Negative (Negative); Ketones Urine Negative (Negative); Leukocyte Esterase Urine 3+ (Negative); Nitrite Urine Negative (Negative); Protein Urine 2+ (Negative); Specific Gravity Urine 1.017 (1.000-1.030); Urobilinogen Urine Negative (Negative); WBC Urine Automated >30 /hpf (0-5); pH Urine 5.5 (4.5-7.5)
[2022-09-05 18:05] LABS: Cast Urine Automated 0 /lpf (0-5)
[2022-09-05] MEDS ORDERED: GLUCAGON FOR INJ 1 MG VIAL SQ PRN (18:47)
[2022-09-05] MEDS ORDERED: PHARMACY GLYCEMIC MGMT CONSULT PRN (18:47)
[2022-09-05] MEDS ORDERED: GLUCOSE 10 TAB/TUBE PO PRN (18:47)
[2022-09-05] MEDS ORDERED: CARBOHYDRATES FOR HYPOGLYCEMIA PO PRN (18:47)
[2022-09-05] MEDS ORDERED: GLUCOSE 40% GEL 15 GM TUBE PO PRN (18:47)
[2022-09-05] MEDS ORDERED: DEXTROSE 50% 50 ML SYRINGE IV PRN (18:47)
[2022-09-05] MEDS ORDERED: LORazepam 0.5 MG TAB PO PRN (18:47)
--- NOTE | 2022-09-05 20:00 | Surgery Consultation ---
Date of Consultation September 05, 2022 Assessment & Plan (1) Liver laceration: Unclear. If this is in fact a liver laceration is not acute. There is no evidence of active bleeding or biloma or bile peritonitis etc. We should be able to simply monitor her overnight for this. Continue to treat her underlying conditions. We will recheck H&H in the morning. No indications for urgent surgical intervention. We will continue to follow while she is in the hospital. (2) Morbid obesity with BMI of 50.0-59.9, adult: (3) Cardiomyopathy: (4) CHF (congestive heart failure): (5) HTN (hypertension): (6) IDDM (insulin dependent diabetes mellitus): History of Present Illness Attending Physician: Yefri Garcia MD History of Present Illness 62-year-old female with multiple medical problems including insulin-dependent diabetes end-stage renal disease on dialysis hypertension CHF cardiomyopathy atrial fibrillation among others. She states that about a week and a half ago she had some abdominal pain. She also had some generalized malaise and just did not feel well. She is missed several of her hemodialysis sessions. She presented today again with fatigue and just generalized malaise. Work-up included a CT scan which showed a questionable right liver laceration. Patient denies any sort of trauma that may have caused this. Currently denying abdominal pain. 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 metformin AdvReac Intermediate Diarrhea Verified 11/16/21 16:52 Home Medications Medication Instructions Recorded Confirmed Type atorvastatin 20 mg tablet 20 mg PO QAM 11/16/21 09/05/22 History calcium acetate(phosphat bind) 667 1,334 mg PO TIDM 11/16/21 09/05/22 History mg capsule ezetimibe 10 mg tablet (Zetia) 10 mg PO QAM 11/16/21 09/05/22 History insulin glargine 100 unit/mL 12 unit subcut HS 11/16/21 09/05/22 History subcutaneous solution (Lantus U-100 Insulin) vitamin B complex and vitamin C 1 cap PO QAM 11/16/21 09/05/22 History no.20-folic acid 1 mg capsule (Renal Caps) amiodarone 200 mg tablet 200 mg PO BIDM #60 tabs 04/07/22 09/05/22 Rx furosemide 80 mg tablet (Lasix) 80 mg PO 4XWK #0 tabs 04/07/22 09/05/22 Rx sodium zirconium cyclosilicate 10 10 g PO 4XWK #0 ea 04/07/22 09/05/22 Rx gram oral powder packet (Lokelma) albuterol sulfate 90 mcg/actuation See Rx Instructions .Route .COMPLEX 09/05/22 09/05/22 History aerosol inhaler apixaban 2.5 mg tablet (Eliquis) 2.5 mg PO BID 09/05/22 09/05/22 History levothyroxine 25 mcg capsule 37.5 mcg PO DAILY 09/05/22 09/05/22 History omeprazole 20 mg capsule,delayed 20 mg PO DAILY 09/05/22 09/05/22 History release Patient History Medical History AV fistula Cardiomyopathy Central venous line infection CHF (congestive heart failure) Chronic anemia DVT (deep venous thrombosis) ESRD (end stage renal disease) on dialysis HTN (hypertension) Hypothyroidism IDDM (insulin dependent diabetes mellitus) Necrotizing fasciitis Paroxysmal atrial fibrillation Surgical History History of cholecystectomy History of lumbar surgery Family History Other Family history non-contributory Social History Smoking Status: Former smoker Tobacco Type: Cigarettes Second Hand Exposure: No; Hx Alcohol Use: No Hx Substance Use: No Preferred Language: Armenian Communication Ability: Effective Synthetic Soil Blocks Pulper Required: No Beliefs That Will Affect Care: None marital status: Current Living Situation: Alone Current Living Situation Comment: Niece lives next door Feels Safe at Home: Yes Assistive Devices: Walker Review of Systems Review of Systems: All systems reviewed & are unremarkable except as noted in HPI & below Physical Exam Constitutional: WD/WN, vitals as above no acute distress and not ill appearing Eyes: PERRL, conjunctivae normal, anicteric sclerae EOM intact bilaterally ENMT: external ear and nose normal, oropharynx normal Ears: no hearing impairment Neck: trachea midline, no thyromegaly Respiratory: normal respiratory effort; no respiratory distress and does not use accessory muscles Cardiovascular: Irregular. Gastrointestinal (Abdomen): Soft. Nontender. No palpable abnormalities. Skin: no rashes, warm and dry Psychiatric: Orientation: alert, oriented x 3 and cooperative Results & Data ([facility]) Vital Signs (Past 12 Hours) Vital Signs Temp Pulse Resp BP Pulse Ox O2 Del Method O2 Flow Rate 09/05/22 18:30 64 18 110/55 L 95 Nasal Cannula 4 09/05/22 18:09 64 20 100/63 95 Nasal Cannula 4 09/05/22 17:31 66 21 120/33 L 98 Nasal Cannula 4 09/05/22 17:01 64 21 115/85 90 Nasal Cannula 4 09/05/22 16:30 66 23 120/61 93 Nasal Cannula 2 09/05/22 16:00 64 23 105/73 97 Nasal Cannula 2 09/05/22 15:41 107/52 L 97 Nasal Cannula 2 09/05/22 15:40 65 23 107/52 L 100 Nasal Cannula 4 09/05/22 15:01 65 22 119/54 L 99 Nasal Cannula 4 09/05/22 14:31 96/66 L 09/05/22 14:00 64 20 127/53 L 99 Nasal Cannula 4 09/05/22 13:54 66 120/60 96 Nasal Cannula 4 09/05/22 12:30 67 22 132/52 L 97 Nasal Cannula 4 09/05/22 12:15 65 20 95 Nasal Cannula 6 09/05/22 12:20 36.9 C 88 18 114/58 L 95 Nasal Cannula 6 PG Care Time/CCT Total # of Minutes Spent Total Time Spent with Patient: Total time spent is greater than 50% in coordination of care (as documented) at patient's floor/unit and/or counseling patient: Coding Level of Care Code 11419 Inpt Consult Level 5 Diagnoses Liver laceration S36.113A Morbid obesity with BMI of 50.0-59.9, adult E66.01; Z68.43 Cardiomyopathy I42.9 CHF (congestive heart failure) I50.9 HTN (hypertension) I10 IDDM (insulin dependent diabetes mellitus)
[2022-09-05] MEDS: AMIODARONE 200 MG TAB PO SCH (20:56)
[2022-09-05] MEDS: SUCRALFATE 1 GM/10 ML UDC PO SCH (20:56)
[2022-09-05] MEDS: PANTOprazole 40 MG TAB PO SCH (20:57)
[2022-09-05] MEDS: FAMOTIDINE 20 MG TAB PO SCH (20:57)
[2022-09-05] MEDS: CALCIUM ACETATE 667 MG CAP/TAB PO SCH (20:57)
[2022-09-05] MEDS ORDERED: LANTUS PER UNIT CHARGE SQ SCH (21:00)
[2022-09-05] MEDS ORDERED: INSULIN ASPART PER UNIT SC SCH (21:00)
[2022-09-05] MEDS ORDERED: ACETAMINOPHEN 1,000 MG/100 ML VIAL IV STA (21:05)
[2022-09-06] MEDS: ALBUTEROL HFA 8 GM INHALER INH SCH ×3 (00:07→12:46)
[2022-09-06] MEDS ORDERED: LEVOTHYROXINE SODIUM 25 MCG TABLET PO SCH (06:30)
[2022-09-06 07:42] LABS: Hematocrit (blood only) 29.1 % (34.1-44.9); Mean Platelet Volume 11.3 fL (9.4-12.3); Platelet Count 111 K/uL (130-400); White Blood Count 4.75 K/ul (4.8-10.8)
[2022-09-06] MEDS ORDERED: SODIUM CHLORIDE 0.9% 1000ML 1,000 ML IV PRN (07:55)
[2022-09-06] MEDS ORDERED: EPOETIN ALFA 10,000 UNITS/ML VIAL IV ONE (07:55)
[2022-09-06 08:00] LABS: BUN Creatinine Ratio 7.3 (10-20); Calcium 8.1 mg/dl (8.5-10.1); Creatinine Clr Calc Pharmacy 5.1 ml/min; Est GFR (African American) 2.4 ml/min; Est GFR (Non-African American) 2.1 ml/min; Magnesium 2.4 mg/dl (1.7-2.4); Phosphorus 11.7 mg/dl (2.5-4.9); Potassium 5.3 mmol/L (3.5-5.1)
[2022-09-06 08:05] LABS: Estimated Average Glucose 128 mg/dl; Hemoglobin A1C 6.1 % (4.5-5.6)
[2022-09-06 08:14] LABS: Mean Corpuscular Hemoglobin 33.5 pg (25.0-34.0); Mean Corpuscular Hgb Conc 30.9 g/dL (32.0-36.0); Mean Corpuscular Volume 108.2 fL (80.0-100.0); Platelet Estimate Decreased (Normal); RDW Standard Deviation 74.8 fL (36.4-46.3); Red Blood Count 2.69 M/uL (3.93-5.22)
[2022-09-06] MEDS ORDERED: IRON SUCROSE 100 MG in SYRINGE 0 ML IV ONE (08:30)
[2022-09-06] MEDS ORDERED: EZETIMIBE 10 MG TABLET PO SCH (09:00)
[2022-09-06] MEDS ORDERED: ATORVASTATIN 20 MG TAB PO SCH (09:00)
[2022-09-06] MEDS ORDERED: NEPHROCAPS PO SCH (09:00)
--- NOTE | 2022-09-06 09:29 | Nephrology Consultation ---
Date of Consultation September 06, 2022 Assessment & Plan (1) ESRD (end stage renal disease) on dialysis: on TRSat HD at [place]; missed 2 txs in past week -for 4 hr tx today w/ goal UF of 3L, monitoring SBP -no heparin on tx d/t liver laceration -next HD tomorrow - will eval for this but plan GNR in urine but looks to be contaminated specimen hyperphosphatemia and hypocalcemia noted >> c/w missed treatments >>daily H&H given liver laceration which is for OP evaluation at this point Care coordinated w/ Dr Oliva History of Present Illness Reason for Consultation: ESRD on dialysis, missed dialysis Attending Physician: Alexander Oliva MD History of Present Illness 62 y/o F whom I'm asked to evaluate for dialysis needs was admitted overnight for weakness and GI illness after presenting w/ 8 days of N/V and having missed 2 dialysis sessions. Noted on admission to have liver laceration which appears after surgical evaluation to be chronic; transfer to [facility] had been contemplated but this is currently deferred. PMH includes systolic HF EF 45%, ESRD on in center hemodialysis via [facility], recurrent bacteremia most recently with MSSA bacteremia March 2022; HTN, DM on insulin; obesity, lumbar surgery; chronic hypoxia on 2L 02NC w/ exertion per her report. She dialyzes under the care of my partner Dr Ochoa in [place]; his prior notes in this system note that she is frequently nonadherent to treatment recommendations and generally dialyzes 2 X weekly or even 1X weekly despite recommended 3X weekly. Has an AVG but team using [facility] still for dialysis access. Lives at home w/ her . Denies sick contacts. Feels improved since arrival > no further N/V/D. Denies abdominal pain or dyspnea. no cough. no edema. voids daily usually spoonfuls of urine; no recent changes in voiding habits. 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 metformin AdvReac Intermediate Diarrhea Verified 11/16/21 16:52 Home Medications Medication Instructions Recorded Confirmed Type atorvastatin 20 mg tablet 20 mg PO QAM 11/16/21 09/05/22 History calcium acetate(phosphat bind) 667 1,334 mg PO TIDM 11/16/21 09/05/22 History mg capsule ezetimibe 10 mg tablet (Zetia) 10 mg PO QAM 11/16/21 09/05/22 History insulin glargine 100 unit/mL 12 unit subcut HS 11/16/21 09/05/22 History subcutaneous solution (Lantus U-100 Insulin) vitamin B complex and vitamin C 1 cap PO QAM 11/16/21 09/05/22 History no.20-folic acid 1 mg capsule (Renal Caps) amiodarone 200 mg tablet 200 mg PO BIDM #60 tabs 04/07/22 09/05/22 Rx furosemide 80 mg tablet (Lasix) 80 mg PO 4XWK #0 tabs 04/07/22 09/05/22 Rx sodium zirconium cyclosilicate 10 10 g PO 4XWK #0 ea 04/07/22 09/05/22 Rx gram oral powder packet (Lokelma) albuterol sulfate 90 mcg/actuation See Rx Instructions .Route .COMPLEX 09/05/22 09/05/22 History aerosol inhaler apixaban 2.5 mg tablet (Eliquis) 2.5 mg PO BID 09/05/22 09/05/22 History levothyroxine 25 mcg capsule 37.5 mcg PO DAILY 09/05/22 09/05/22 History omeprazole 20 mg capsule,delayed 20 mg PO DAILY 09/05/22 09/05/22 History release Patient History Medical History (Updated 09/06/22 @ 12:16 by Saray Guzman MD, PhD) AV fistula Bacteremia recurrent; MSSA bacteremia March 2022 Cardiomyopathy Central venous line infection CHF (congestive heart failure) Chronic anemia DVT (deep venous thrombosis) ESRD (end stage renal disease) on dialysis HTN (hypertension) Hypothyroidism IDDM (insulin dependent diabetes mellitus) Necrotizing fasciitis Paroxysmal atrial fibrillation Surgical History History of cholecystectomy History of lumbar surgery Family History Other Family history non-contributory Social History Smoking Status: Former smoker Tobacco Type: Cigarettes Second Hand Exposure: No; Hx Alcohol Use: No Hx Substance Use: No Preferred Language: Burmese Communication Ability: Effective Glass Novelty Maker Required: No Beliefs That Will Affect Care: None marital status: Current Living Situation: Alone Current Living Situation Comment: Niece lives next door Feels Safe at Home: Yes Assistive Devices: None and Walker Review of Systems Review of Systems: All systems reviewed & are unremarkable except as noted in HPI & below Physical Exam Constitutional: well developed, well nourished, + obese and cooperative; no acute distress Eyes: EOM intact bilaterally ENMT: Ears: no external ear abnormality Nose: no external nose abnormality Mouth: + dry oral mucous membranes Neck: no nuchal rigidity Respiratory: normal respiratory effort Auscultation: + diminished lung sounds Cardiovascular: RRR, no murmur, no edema (heart sounds distant) Gastrointestinal (Abdomen): Inspection/Auscultation: normal bowel sounds Percussion/Palpation: abdomen soft; abdomen nontender Musculoskeletal: Extremities: strength 5/5 throughout Skin: no rashes, warm and dry Neurologic: mc, fluent speech, no tremor Psychiatric: Orientation: oriented x 3 Speech: normal rate/rhythm/volume of speech Results & Data ([facility]) Vital Signs (Past 12 Hours) Vital Signs Pulse Pulse Resp BP Pulse Ox O2 Del Method O2 Flow Rate 09/06/22 07:13 63 18 94 Room Air 3 09/06/22 06:00 64 20 114/56 L 93 Nasal Cannula 4 09/06/22 00:07 63 63 20 93 Nasal Cannula 3 09/05/22 22:43 64 20 93/68 L 94 Nasal Cannula 4 Laboratory Results 09/06/22 06:51 09/06/22 06:[address] a/p w/ IV con 1. There is a linear hypodensity within the periphery of the anterior segment of the right hepatic lobe which extends to the gallbladder fossa . This measures up to 10 cm in length and 2.6 cm in depth. This is highly suspicious for hepatic laceration. However, there is no associated acute subcapsular hematoma or acute intraperitoneal hemorrhage identified. There is trace low-density fluid within the gallbladder fossa and surrounding the second portion of duodenum which could represent subacute hemorrhage. A mild duodenitis is considered less likely but not entirely excluded. Therefore, this may represent a subacute hepatic laceration/injury. Clinical correlation recommended for subacute trauma or subacute postoperative changes. 2. No bowel wall thickening or obstruction. 3. Colonic diverticulosis. No evidence for acute diverticulitis. 4. A few subcentimeter soft tissue nodules within the right anterior omentum. These are indeterminate. 6 month abdomen and pelvis CT follow-up recommended to ensure stability.
[2022-09-06] MEDS: AMIODARONE 200 MG TAB PO SCH (09:31)
[2022-09-06] MEDS: SUCRALFATE 1 GM/10 ML UDC PO SCH ×2 (12:23→14:49)
[2022-09-06] MEDS: CALCIUM ACETATE 667 MG CAP/TAB PO SCH ×2 (12:24→14:48)
--- NOTE | 2022-09-06 12:26 | Dialysis Progress Note ---
Date of Service September 06, 2022 Assessment & Plan (1) ESRD (end stage renal disease) on dialysis: Plan: tolerating HD today w/ goal UF 3L; plan to dialyze tomorrow as well pending clinical status; no heparin in HD d/t liver laceration Admission and Anticipated Discharge Date Admission Date: September 05, 2022 Subjective seen on HD; no c/o; tolerating tx well; admission GI sx all but resolved Review of Systems Review of Systems: All systems reviewed & are unremarkable except as noted in Subjective Physical Exam Constitutional: well developed and well nourished Eyes: EOM intact bilaterally ENMT: Ears: no external ear abnormality Nose: no external nose abnormality Mouth: + dry oral mucous membranes Neck: no nuchal rigidity Respiratory: normal respiratory effort Auscultation: + diminished lung sounds Cardiovascular: RRR, no murmur, no edema Gastrointestinal (Abdomen): Inspection/Auscultation: normal bowel sounds Percussion/Palpation: abdomen soft; abdomen nontender Musculoskeletal: Extremities: strength 5/5 throughout Skin: no rashes, warm and dry Neurologic: mc, fluent speech, no tremor Psychiatric: Orientation: oriented x 3 Results & Data ([facility]) Vital Signs (Past 12 Hours) Vital Signs Temp Pulse Pulse Pulse Resp BP BP 09/06/22 11:00 68 105/40 L 09/06/22 10:30 67 119/51 L 09/06/22 10:15 46 L 118/96 09/06/22 10:00 65 104/35 L 09/06/22 09:55 55 L 83/39 L 09/06/22 09:47 36.6 C 64 100/44 L 09/06/22 09:45 36.6 C 65 09/06/22 09:00 64 17 115/53 L 09/06/22 07:13 63 18 09/06/22 06:00 64 20 114/56 L Pulse Ox O2 Del Method O2 Flow Rate 09/06/22 11:00 09/06/22 10:30 09/06/22 10:15 09/06/22 10:00 09/06/22 09:55 09/06/22 09:47 09/06/22 09:45 09/06/22 09:00 92 Nasal Cannula 4 09/06/22 07:13 94 Room Air 3 09/06/22 06:00 93 Nasal Cannula 4 Laboratory Results 09/06/22 06:51 09/06/22 06:35
--- NOTE | 2022-09-06 12:54 | Pharmacy Report ---
Pharmacy Glycemic Short Note 2 - Date of Service September 06, 2022 - Glycemic Short BSG Results (Last 24 hours): 09/05/22 09/05/22 09/05/22 13:16 13:24 20:54 Glucose 122 H POC Glucose 84 POC Glucose (other) 122 H 09/06/22 09/06/22 06:35 10:03 Glucose 60 L POC Glucose 70 POC Glucose (other) OUTPATIENT ANTIDIABETIC REGIMEN: * Glargine 12 units HS * HbA1c 6.1% on 09/06/22 ASSESSMENT: * 62 year old female with T2DM admitted for weakness and liver laceration. * Fasting BSG this morning of 60 mg/dL after receiving 5 units of Lantus at bedtime, etiology likely due to poor PO intake +/- Lantus. Will place tonight's Lantus order on a scale to avoid future fasting hypoglycemia should PM BSG be less than 140. * Diet advanced from NPO to T2DM, however I will loosen Novolog parameters to more closely resemble a stress factor of 2 due to absence of pertinent stressors. PLAN FOR INPATIENT GLYCEMIC CONTROL: * Basal insulin * Lantus 0-5 units SQ HS once * Bolus insulin * NovoLog per scale ACHS or Q6hrs while NPO * Goal Range: Low 110 mg/dL - High 150 mg/dL * Correction Factor: 20 mg/dL/unit * Nutritional / Prandial insulin per carb ratio of 1 unit per 7 grams CHO consumed
[2022-09-06] MEDS: PANTOprazole 40 MG TAB PO SCH (14:48)
[2022-09-06] MEDS: FAMOTIDINE 20 MG TAB PO SCH (14:48)
--- NOTE | 2022-09-06 16:03 | Discharge Summary ---
Date of Service September 06, 2022 Admission HPI Per Admitting Provider Zoya Solares is a 62-year-old female history of ESRD on dialysis is a 62-year-old female with a past medical history significant for ESRD on hemodialysis M/W/Sat hypertension, DM2, HFrEF, paroxysmal A. fib and history of GI bleeds, and anemia of chronic disease who is presenting today for weakness. She was seen last night in her ED for 1 week of generalized fatigue and body aches, with several episodes of nonbloody vomiting and abdominal pain. She missed dialysis twice this past week due to her symptoms and is scheduled for testing tomorrow. Her labs last evening were unremarkable, she tolerated clear liquids and was given IV hydration prior to discharge home. She presents today again with significant weakness over the past 24 hours. On presentation to the ED, her vital signs are within normal limits, and stable. On her usual 2L NC. Labs remarkable for potassium of 5.4, BUN of 118, creatinine 16, glucose 122, calcium 8.2, all at/near baseline and mildly elevated compared to last night's labs. Her troponin is 79.1, actually decreased from prior values from earlier this year. Her COVID is negative. She has no leukocytosis or left shift, and her anemia is at her baseline. CT A/P was ordered given several days of nausea vomiting and diarrhea and does show a linear hypodensity within the periphery of the anterior segment of right hepatic lobe extending into the gallbladder fossa measuring 10 cm in length and 2.7 cm in depth highly suspicious for hepatic laceration but there is no associated acute subcapsular hematoma or acute intraperitoneal hemorrhage. There is trace low-density fluid within the gallbladder fossa and surrounding the second portion of the duodenum which could represent a subacute hemorrhage. The case was discussed with both general surgery at our facility as well as the trauma surgeon at [facility], both services in agreement this is most likely a chronic liver laceration and does not require emergent treatment. She has been accepted at [facility] at [place] under the hospitalist service, with Dr. Ann as the accepting hospitalist. They have informed us a bed will not be available for 24 hours, therefore she will be admitted to our facility until transfer can be facilitated. Principal Diagnosis ESRD, abd pain with weakness Discharge Exam patient left before I could see her Discharge Data Allergies Allergy/AdvReac Type Severity Reaction Status Date / Time cefazolin Allergy 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 metformin AdvReac Intermediate Diarrhea Verified 11/16/21 16:52 Consultations 09/05/22 15:48 ED Decision to Admit Stat 09/05/22 18:47 Consult General Surgery Routine Consult Nephrology Routine Ordered Studies 09/05/22 12:22 CT abd pelvis IV con only Stat Hospital Course (1) Liver laceration: Plan She was hemodialysed. I never met her- she was in dialysis when i went to ED to round this morning at 11 am. Transfer had been arranged to [place] at time of admission yesterday and a bed was available around 3 pm. Total Time Total Time Spent Total Time Spent (In Minutes): patient was not seen Discharge Plan Discharge Items Patient Disposition: Transfer Acute Care Hospital Reason For Visit: WEAKNESS, NEED OF DIALYSIS, INCIDENTAL LIVER LAC Discharge Diagnosis: esrd, WEAKNESS Activity: As commented below Activity Comment: na- TRANSFER TO [facility] Non-emergency contact: Primary Care Provider Call non-emergency contact if: you have any medication questions Follow-up/Referrals: Bhanu Murillo M.D. [Primary Care Provider] - Diet: Carb Consistent or DM2 Addtl Attending Provider Instructions: NA - TRANSFER TO ANOTHER HOSPITAL Pending Studies at Discharge: No Stand-Alone Forms: My [facility] Skilled Items Patient informed of condition?: Yes DNR: No Discharge Level of Care: Other Communicable Disease: No Discharge Prognosis: Stable Lines: Peripheral IV Urinary Catheter: No Medications and DC Order Prescriptions: Continued atorvastatin 20 mg tablet 20 mg PO QAM Renal Caps 1 mg Capsule 1 cap PO QAM ezetimibe [Zetia] 10 mg Tablet 10 mg PO QAM calcium acetate(phosphat bind) 667 mg capsule 1,334 mg PO TIDM amiodarone 200 mg Tablet 200 mg PO BIDM Qty: 60 0RF furosemide [Lasix] 80 mg Tablet 80 mg PO 4XWK Qty: 0 0RF Rx Instructions: ONLY TAKE ON NON-DIALYSIS DAYS (SUN,MON,WED,FRI) Lokelma 10 gram powder in packet 10 g PO 4XWK Qty: 0 0RF Rx Instructions: ONLY TAKE ON NON-DIALYSIS DAYS (MON,MON,MON,MON) omeprazole 20 mg capsule,delayed release(DR/EC) 20 mg PO DAILY albuterol sulfate 90 mcg/actuation HFA aerosol inhaler See Rx Instructions .ROUTE .COMPLEX Rx Instructions: 2 puffs prn Eliquis 2.5 mg tablet 2.5 mg PO BID Rx Instructions: reports this was for 2 months only, started in june 2022 and supposed to be off now but has not yet seen dr to have it officially d/c'd levothyroxine 25 mcg capsule 37.5 mcg PO DAILY Discontinued insulin glargine [Lantus U-100 Insulin] 100 unit/mL Solution 12 unit SUBCUT HS Discharge Orders: Discharge Order (Routine); Ordered 09/06/22 Ordered By: Alexander Ray/Other Patient Handouts: Managing Type 2 Diabetes Admission Data Admit Date/Time: 09/05/22 16:17 Attending Provider: Alexander Oliva Admit Provider: Yefri Garcia Primary Care Provider: Bhanu Murillo Other Providers: Yefri Garcia ; Dat Henao ; Saray Guzman Coding Level of Care Code None Diagnoses Liver laceration S36.113A Comment NOT SEEN
[2022-09-06] MEDS ORDERED: INSULIN ASPART PER UNIT SC SCH (19:30)
[2022-09-06] MEDS ORDERED: LANTUS PER UNIT CHARGE SQ ONE (21:00)
[2022-09-07] MEDS ORDERED: FUROSEMIDE 80 MG TAB PO SCH (09:00)
[2022-09-07] MEDS ORDERED: SODIUM ZIRCONIUM CYCLOSILICATE 10 GM PACKET PO SCH (11:00)
== END 2022-09-06 15:20 | disposition short-term general hospital (02) | DRG 441 ==
LOC: ED 11:49 → SUATTDRO 16:17 → EDINP 16:17 → INTOOBSV 16:17 → EDINP 18:48

== ENCOUNTER 2022-10-25 13:04 | Inpatient (IN) ==
[2022-10-25 17:53] LABS: Basophils # (auto) 0.04 K/uL (0-0.2); Basophils % (auto) 0.4 %; Eosinophils # (auto) 0.01 K/uL (0-0.50); Eosinophils % (auto) 0.1 %; Hematocrit (blood only) 26.8 % (34.1-44.9); Hemoglobin 7.9 g/dl (12.0-16.0); Immature Granulocytes # (auto) 0.08 K/uL (0.00-0.02); Immature Granulocytes % (auto) 0.7 %; Lymphocytes # (auto) 1.01 K/uL (1.2-3.4); Mean Corpuscular Hemoglobin 34.5 pg (25.0-34.0); Mean Corpuscular Hgb Conc 29.5 g/dL (32.0-36.0); Mean Platelet Volume 11.1 fL (9.4-12.3); Monocytes # (auto) 0.96 K/uL (0.24-0.82); Monocytes % (auto) 8.5 %; Neutrophils # (auto) 9.16 K/uL (1.4-6.5); Neutrophils % (auto) 81.3 %; Nucleated RBC # (auto) 0.06 K/uL (0-0); Nucleated RBC % (auto) 0.5 %; Platelet Count 109 K/uL (130-400); RDW Standard Deviation 81.3 fL (36.4-46.3); Red Blood Count 2.29 M/uL (3.93-5.22); White Blood Count 11.26 K/ul (4.8-10.8)
--- NOTE | 2022-10-25 18:08 | Emergency Department Note ---
History of Present Illness General Chief complaint: Illness Stated complaint: fall, lethargic, shaky Time Seen by Provider: 10/25/22 16:48 History of Present Illness Provider complaint: Dialysis graft not working Onset (ago): day(s) 1 Location: upper extremity and right Maximum Pain Intensity: 10 62-year-old female end-stage renal disease on hemodialysis Monday presents emergency department with her AV graft is not working. Patient states they tried to access her graft at dialysis and was not working so they referred her to the emergency department. Patient reports a mild difficulty breathing and some weight gain. She reports no chest pain or falls. Home Medications Medication Instructions Recorded Confirmed Type atorvastatin 20 mg tablet 20 mg PO QAM 11/16/21 10/25/22 History calcium acetate(phosphat bind) 667 1,334 mg PO TIDM 11/16/21 10/25/22 History mg capsule ezetimibe 10 mg tablet (Zetia) 10 mg PO QAM 11/16/21 10/25/22 History insulin glargine 100 unit/mL 10 unit subcut HS 11/16/21 10/25/22 History subcutaneous solution (Lantus U-100 Insulin) vitamin B complex and vitamin C 1 cap PO QAM 11/16/21 10/25/22 History no.20-folic acid 1 mg capsule (Renal Caps) furosemide 80 mg tablet (Lasix) 80 mg PO 4XWK #0 tabs 04/07/22 10/25/22 Rx sodium zirconium cyclosilicate 10 10 g PO 4XWK #0 ea 04/07/22 10/25/22 Rx gram oral powder packet ([facility]) albuterol sulfate 90 mcg/actuation 2 puff inhalation DIRECTED PRN 09/05/22 10/25/22 History aerosol inhaler Shortness Of Breath apixaban 2.5 mg tablet (Eliquis) 2.5 mg PO BID 09/05/22 10/25/22 History levothyroxine 25 mcg capsule 37.5 mcg PO DAILY 09/05/22 10/25/22 History amiodarone 100 mg tablet 100 mg PO QAM 10/25/22 10/25/22 History lorazepam 0.5 mg tablet 0.5 mg PO TID PRN Anxiety 10/25/22 10/25/22 History nystatin 100,000 unit/gram topical 1 applic topical BID PRN RASH 10/25/22 10/25/22 History powder UNDER BREASTS ondansetron HCl 4 mg tablet 4 mg PO Q8H PRN NAUSEA/VOMITING 10/25/22 10/25/22 History pantoprazole 40 mg tablet,delayed 40 mg PO QAM 10/25/22 10/25/22 History release Allergies Allergy/AdvReac Type Severity Reaction Status Date / Time cefazolin Allergy Severe Leukocytoclastic Verified 10/25/22 17: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 metformin AdvReac Intermediate Diarrhea Verified 10/25/22 17:53 Past Med/Surg History Medical History AV fistula Bacteremia recurrent; MSSA bacteremia March 2022 Cardiomyopathy Central venous line infection CHF (congestive heart failure) Chronic anemia DVT (deep venous thrombosis) ESRD (end stage renal disease) on dialysis HTN (hypertension) Hypothyroidism IDDM (insulin dependent diabetes mellitus) Necrotizing fasciitis Paroxysmal atrial fibrillation Surgical History History of cholecystectomy History of lumbar surgery Family History Other Family history non-contributory Social History Smoking Status: Never smoker Tobacco Type: Cigarettes Second Hand Exposure: No; Hx Alcohol Use: No Hx Substance Use: No Preferred Language: Marshallese Communication Ability: Effective 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 Beliefs That Will Affect Care: None marital status: Current Living Situation: Alone Current Living Situation Comment: Niece lives next door Feels Safe at Home: Yes Assistive Devices: None and Walker Physical Exam Vital Signs Vital Signs - 24 hr 10/25/22 13:11 10/25/22 16:57 10/25/22 18:00 Temperature 36.0 C L Temperature Source Temporal Artery Scan Pulse Rate 114 H Pulse Rate [Apical] 72 65 Pulse Rhythm [Apical] Regular Regular Pulse Strength [Apical] Normal Normal Respiratory Rate 20 24 20 Respiratory Effort / Characteristics Non-Labored Non-Labored Non-Labored Respiratory Depth Normal Normal Normal Respiratory Pattern Regular Regular Blood Pressure 102/56 L Blood Pressure [Right Arm] 98/54 L 109/52 L Blood Pressure Mean 71 Blood Pressure Mean [Right Arm] 68 71 Blood Pressure Position [Right Arm] Lying Pulse Oximetry 97 96 98 Oxygen Delivery Method Room Air Nasal Cannula Room Air Oxygen Flow Rate 2 Sepsis Recent Fever Within 48 Hours No Sepsis New/Unexplained Change in Mental Status N/A Sepsis Action Taken by Nursing No Action Required 10/25/22 19:01 Temperature Temperature Source Pulse Rate Pulse Rate [Apical] 63 Pulse Rhythm [Apical] Regular Pulse Strength [Apical] Normal Respiratory Rate 16 Respiratory Effort / Characteristics Non-Labored Spontaneous Respiratory Depth Normal Respiratory Pattern Regular Blood Pressure Blood Pressure [Right Arm] 133/51 L Blood Pressure Mean Blood Pressure Mean [Right Arm] 78 Blood Pressure Position [Right Arm] Lying Pulse Oximetry 94 Oxygen Delivery Method Nasal Cannula Oxygen Flow Rate 2 Sepsis Recent Fever Within 48 Hours Sepsis New/Unexplained Change in Mental Status Sepsis Action Taken by Nursing Physical Exam CV: Normal rate, regular rhythm, normal heart sounds and intact distal pulses. Palpable radial pulses bue. PULM/CHEST: Inspiratory rales bilaterally. ABD: The abdomen is soft nontender. NEURO: Motor and sensation grossly intact. SKIN: Skin is warm and dry. She is not diaphoretic. PSYCH: She has a normal mood and affect. Behavior is normal. Judgment and thought content normal. Course Course 1647: The patient was evaluated in room B12B. A complete history and physical exam was performed Cardiac monitoring: An order was placed for continuous cardiac monitoring. The monitor shows a rate of 70 with sinus rhythm 1918: Vital signs stable. Labs show hyperkalemia of 6.2. Patient treated with calcium gluconate insulin and dextrose. Chest x-ray shows that the patient is fluid overloaded. [facility] Mejia team notified about the results stated they will admit the patient to their service. They state they will speak with nephrology. Critical Care Time Critical Care Time: Yes Total Critical Care Time: 61 I have personally spent greater than 61 minutes of critical care time in the direct management of this patient. This includes bedside care, interpretation of diagnostic studies, and testing, discussion with consultants, patient, and family members, and other required patient management activities. This 61 minutes is in excess of all separately billable procedures. Medical Decision Making Laboratory Data Attestation: I reviewed the patient's lab results. 10/25/22 17:40 10/25/22 17:40 Lab Results 10/25/22 10/25/22 Range/Units 17:40 17:40 WBC 11.26 H (4.8-10.8) K/ul RBC 2.29 L (3.93-5.22) M/uL Hgb 7.9 L (12.0-16.0) g/dl Hct 26.8 L (34.1-44.9) % MCV 117.0 H (80.0-100.0) fL MCH 34.5 H (25.0-34.0) pg MCHC 29.5 L (32.0-36.0) g/dL RDW Std Deviation 81.3 H (36.4-46.3) fL RDW Coeff of Wiley 19.0 H (11.5-14.5) % Plt Count 109 L (130-400) K/uL MPV 11.1 (9.4-12.3) fL Immature Gran % (Auto) 0.7 % Neut % (Auto) 81.3 % Lymph % (Auto) 9.0 % Moca % (Auto) 8.5 % Eos % (Auto) 0.1 % Baso % (Auto) 0.4 % Neut # (Auto) 9.16 H (1.4-6.5) K/uL Lymph # (Auto) 1.01 L (1.2-3.4) K/uL Moca # (Auto) 0.96 H (0.24-0.82) K/uL Eos # (Auto) 0.01 (0-0.50) K/uL Baso # (Auto) 0.04 (0-0.2) K/uL Immature Gran # (Auto) 0.08 H (0.00-0.02) K/uL Absolute Nucleated RBC 0.06 H (0-0) K/uL Nucleated RBC % (auto) 0.5 % Polychromasia 1+ Anisocytosis Present Macrocytosis Present Tear Drop Cells 1+ Sodium 137 (136-145) mmol/L Potassium 6.2 H* (3.5-5.1) mmol/L Chloride 99 (98-107) mmol/L Carbon Dioxide 26 (21-32) mmol/L Anion Gap 12 H (3-11) BUN 74 H (6-23) mg/dl Creatinine 9.61 H* (0.6-1.2) mg/dl Est Cr Clr Drug Dosing Not Reportable Est GFR ( Amer) 4.6 ml/min Est GFR (Non-Af Amer) 3.9 ml/min BUN/Creatinine Ratio 7.7 L (10-20) Glucose 201 H (70-99(Fasting)) mg/dl Calcium 8.1 L (8.5-10.1) mg/dl Imaging Data Attestation: I personally reviewed and interpreted this imaging study as follows: My Impression: Cardiomegaly with cephalization ECG Data Attestation: I personally reviewed and interpreted this ECG as follows: Indication: + other (arrythmia) Rate (beats per minute): 71 Rhythm: + normal sinus ECG Intervals/blocks: + First degree AV block, + Normal QRS and + Normal QT-c ECG ST segments: + Normal ST segments MDM Narrative Vital signs stable. Labs show hyperkalemia of 6.2. Patient treated with calcium gluconate insulin and dextrose. Chest x-ray shows that the patient is fluid overloaded. [facility] hospitalist Dr Mejia team notified about the results stated they will admit the patient to their service. They state they will speak with nephrology. Impression & Plan Hyperkalemia, ESRD (end stage renal disease) on dialysis, Fluid overload Discharge Plan Visit Data Chief Complaint: Illness Stated Complaint: fall, lethargic, shaky ED Provider: Dave Hall Discharge Problem: Hyperkalemia, ESRD (end stage renal disease) on dialysis, Fluid overload Patient Disposition: Admitted As Inpatient Forms Stand Alone Forms: My [facility] Prescriptions Prescriptions: No Action atorvastatin 20 mg tablet 20 mg PO QAM insulin glargine [Lantus U-100 Insulin] 100 unit/mL Solution 10 unit SUBCUT HS Renal Caps 1 mg Capsule 1 cap PO QAM ezetimibe [Zetia] 10 mg Tablet 10 mg PO QAM calcium acetate(phosphat bind) 667 mg capsule 1,334 mg PO TIDM ondansetron HCl 4 mg tablet 4 mg PO Q8H PRN (Reason: NAUSEA/VOMITING) lorazepam 0.5 mg tablet 0.5 mg PO TID PRN (Reason: Anxiety) pantoprazole 40 mg tablet,delayed release (DR/EC) 40 mg PO QAM nystatin 100,000 unit/gram powder 1 applic TOPICAL BID PRN (Reason: RASH UNDER BREASTS) amiodarone 100 mg tablet 100 mg PO QAM furosemide [Lasix] 80 mg Tablet 80 mg PO 4XWK Qty: 0 0RF Rx Instructions: ONLY TAKE ON NON-DIALYSIS DAYS (SUN,MON,MON,MON) Lokelma 10 gram powder in packet 10 g PO 4XWK Qty: 0 0RF Rx Instructions: ONLY TAKE ON NON-DIALYSIS DAYS (SUN,MON,MON,MON) albuterol sulfate 90 mcg/actuation HFA aerosol inhaler 2 puff inhalation DIRECTED PRN (Reason: Shortness Of Breath) Rx Instructions: 2 puffs prn Eliquis 2.5 mg tablet 2.5 mg PO BID Rx Instructions: reports this was for 2 months only, started in june 2022 and supposed to be off now but has not yet seen dr to have it officially d/c'd levothyroxine 25 mcg capsule 37.5 mcg PO DAILY Referrals Referrals: Bhanu Murillo M.D. [Primary Care Provider] -
[2022-10-25 18:16] LABS: Anisocytosis Present; Macrocytosis Present; Polychromasia 1+; Tear Drop Cells 1+
[2022-10-25 18:37] LABS: Anion Gap 12 (3-11); BUN Creatinine Ratio 7.7 (10-20); Blood Urea Nitrogen 74 mg/dl (6-23); Calcium 8.1 mg/dl (8.5-10.1); Carbon Dioxide 26 mmol/L (21-32); Chloride 99 mmol/L (98-107); Est GFR (African American) 4.6 ml/min; Est GFR (Non-African American) 3.9 ml/min; Glucose 201 mg/dl (70-99(Fasting)); Potassium 6.2 mmol/L (3.5-5.1); Sodium 137 mmol/L (136-145)
[2022-10-25] MEDS ORDERED: CYCLOBENZAPRINE HCL 10 MG TAB PO STA (18:53)
[2022-10-25] MEDS ORDERED: CALCIUM GLUCONATE 10% 1,000 MG in DEXTROSE 5% 50 ML IV STA (18:53)
[2022-10-25] MEDS ORDERED: INSULIN HUMAN REGULAR PER UNIT 10 UNITS in SYRINGE 9.9 ML IV STA (18:53)
[2022-10-25] MEDS ORDERED: DEXTROSE 50% 50 ML SYRINGE IV STA (18:53)
[2022-10-25] MEDS ORDERED: STAT IV STA (18:53)
[2022-10-25] MEDS ORDERED: SODIUM ZIRCONIUM CYCLOSILICATE 10 GM PACKET PO STA (19:04)
[2022-10-25] MEDS ORDERED: NovoLIN-R INSULIN PER UNIT CHARGE ONE (19:16)
--- NOTE | 2022-10-25 19:17 | History & Physical Report ---
Date of Service October 25, 2022 Assessment & Plan (1) ESRD (end stage renal disease) on dialysis: Plan: - On dialysis T/TH/Sat however could not have today;s session as there was difficulty accessing her AV graft. - [facility] nephrology consulted, appreciate their recommendations and assistance with this patient. - Will give 80 mg IV Lasix tonight. - K 6.2, BUN 74, creatinine 9, calcium 8.1. - Patient still makes urine. - Renal dialysis/Dm2 diet for now, NPO at midnight. - BMP daily. (2) Hyperkalemia: Plan: - K 6.2, received calcium gluconate, insulin with dextrose, Lokelma, and Lasix in ED. - On telemetry unit. EKG ordered, pending. - BMP in AM. (3) IDDM (insulin dependent diabetes mellitus): Plan: - Continue Lantus 10 units HS with SSI. - BSG 281 on admit. - Renal dialysis/DM2 diet. (4) Chronic anemia: Plan: - Hgb 7.9, slightly lower than recent baseline of 9 but somewhat at baseline for her over past 6 months. - No s/s of acute bleeding. Monitor on AM labs. (5) Paroxysmal atrial fibrillation: Plan: - History of, continue amiodarone. Is not on AC due to acute bleeding while on it previously requiring 5 units RBC transfusion. (6) Hypothyroidism: Plan: - Continue levothyroxine. Plan - Admitted to PCU. - SCDs for VTE ppx. - DNR/DNI. History of Present Illness Chief Complaint: AV graft malfunction at dialysis today Primary Care Provider: Bhanu Murillo M.D. Zoya Solares is a 62-year-old female history of ESRD on dialysis is a 62-year-old female with a past medical history significant for ESRD on hemodialysis T//Mon, hypertension, DM2, HFrEF, paroxysmal A. fib and history of GI bleeds, and anemia of chronic disease. She is presenting today from the dialysis center. She receives ESRD as an outpatient . Today they were unable to access her AV graft and sent her to ED for further evaluation. Patient states she has been feeling well, was hospitalized in [place] this past weekend for pneumonia and they were had some difficulty but were eventually able to access her AV graft for dialysis on Monday. Today she is feeling well. Denies fever/chills, weakness, myalgias, cough, congestion, chest pain, palpitations, nausea, vomiting, abdominal pain, diarrhea, or constipation, dysuria, hematuria. On presentation, VS wnl, BP at the lower end which is her baseline, she is on her usual 2 L NC. Labs remarkable for K 6.2, BUN 74, Cr 9.61, Ca 8.1, glucose 281. WBC 11 with left shift, Hgb 7.9--near baseline over past 6 months, PLT 109. CXR: Mild cardiomegaly with mild congestive change. 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 metformin AdvReac Intermediate Diarrhea Verified 10/25/22 17:53 Home Medications Medication Instructions Recorded Confirmed Type atorvastatin 20 mg tablet 20 mg PO QAM 11/16/21 10/25/22 History calcium acetate(phosphat bind) 667 1,334 mg PO TIDM 11/16/21 10/25/22 History mg capsule ezetimibe 10 mg tablet (Zetia) 10 mg PO QAM 11/16/21 10/25/22 History insulin glargine 100 unit/mL 10 unit subcut HS 11/16/21 10/25/22 History subcutaneous solution (Lantus U-100 Insulin) vitamin B complex and vitamin C 1 cap PO QAM 11/16/21 10/25/22 History no.20-folic acid 1 mg capsule (Renal Caps) furosemide 80 mg tablet (Lasix) 80 mg PO 4XWK #0 tabs 04/07/22 10/25/22 Rx sodium zirconium cyclosilicate 10 10 g PO 4XWK #0 ea 04/07/22 10/25/22 Rx gram oral powder packet (Lokelma) albuterol sulfate 90 mcg/actuation 2 puff inhalation DIRECTED PRN 09/05/22 10/25/22 History aerosol inhaler Shortness Of Breath apixaban 2.5 mg tablet (Eliquis) 2.5 mg PO BID 09/05/22 10/25/22 History levothyroxine 25 mcg capsule 37.5 mcg PO DAILY 09/05/22 10/25/22 History amiodarone 100 mg tablet 100 mg PO QAM 10/25/22 10/25/22 History lorazepam 0.5 mg tablet 0.5 mg PO TID PRN Anxiety 10/25/22 10/25/22 History nystatin 100,000 unit/gram topical 1 applic topical BID PRN RASH 10/25/22 10/25/22 History powder UNDER BREASTS ondansetron HCl 4 mg tablet 4 mg PO Q8H PRN NAUSEA/VOMITING 10/25/22 10/25/22 History pantoprazole 40 mg tablet,delayed 40 mg PO QAM 10/25/22 10/25/22 History release Past Med/Surg History Medical History (Updated 10/27/22 @ 11:52 by Saray Guzman MD, PhD) Acute on chronic anemia AV fistula Bacteremia recurrent; MSSA bacteremia March 2022 Cardiomyopathy EF 30-35% in March 2022 echo Central venous line infection CHF (congestive heart failure) Chronic anemia DVT (deep venous thrombosis) ESRD (end stage renal disease) on dialysis HTN (hypertension) Hypothyroidism IDDM (insulin dependent diabetes mellitus) Liver laceration Necrotizing fasciitis Paroxysmal atrial fibrillation Surgical History History of cholecystectomy History of lumbar surgery Family History Other Family history non-contributory Social History Smoking Status: Former smoker Tobacco Type: Cigarettes Second Hand Exposure: No; Hx Alcohol Use: Yes Hx Substance Use: No Preferred Language: Belarusian Communication Ability: Effective [employer] Machine Operator Required: No Beliefs That Will Affect Care: None marital status: Current Living Situation: Family Current Living Situation Comment: niece Other Information That Helps Us Care for You: No Feels Safe at Home: Yes Safety Concerns: Feels Safe At This Time Assistive Devices: Walker and Wheelchair Review of Systems Review of Systems: Constitutional: No fever/chills, weakness, fatigue, myalgias, anorexia, night sweats Eyes: No diplopia, no worsening or blurred vision ENT: normal hearing, no trouble swallowing Respiratory: No cough, sputum, dyspnea at rest or on exertion Cardiovascular: No chest pain, tightness or palpitations Abdomen: No pain, nausea, vomiting, diarrhea or constipation : Denies dysuria, hematuria, increased urgency/frequency, urinary retention Musculoskeletal: No joint pain, calf pain, swelling Neurologic: No weakness, numbness/tingling, or balance problems Psychiatric: No anxiety or depression Skin: No rash or itch Physical Exam Physical Exam: General: awake, alert, no apparent distress Head: Normocephalic, atraumatic ENT: PERRL, EOMI, no pharyngeal exudate, mucous membranes moist Chest: Clear to auscultation, on room air, no adventitious breath sounds Cardiac: Regular rate and rhythm, no murmur, no JVD, normal peripheral pulses, good capillary refill Abdominal: NABS x 4 quadrants, soft, nontender to palpation, no rebound, guarding or tenderness Extremities: Normal inspection, no peripheral edema or erythema, calfs nontender to palpation Psych: Normal mood and affect Neuro: AAO x 3, strength intact bilaterally and rated 5/5, no motor deficits, speech is clear, no peripheral sensory deficits Skin: no rash or erythema Results & Data Results & Data ([facility]) Vital Signs (Past 12 Hours) Vital Signs Temp Pulse Pulse Resp BP BP Pulse Ox 10/25/22 19:01 63 16 133/51 L 94 10/25/22 18:00 65 20 109/52 L 98 10/25/22 16:57 72 24 98/54 L 96 10/25/22 13:11 36.0 C L 114 H 20 102/56 L 97 O2 Del Method O2 Flow Rate 10/25/22 19:01 Nasal Cannula 2 10/25/22 18:00 Room Air 10/25/22 16:57 Nasal Cannula 2 10/25/22 13:11 Room Air Laboratory Results Abnormal lab results 10/25/22 10/25/22 10/25/22 Range/Units 17:40 17:40 19:37 WBC 11.26 H (4.8-10.8) K/ul RBC 2.29 L (3.93-5.22) M/uL Hgb 7.9 L (12.0-16.0) g/dl Hct 26.8 L (34.1-44.9) % MCV 117.0 H (80.0-100.0) fL MCH 34.5 H (25.0-34.0) pg MCHC 29.5 L (32.0-36.0) g/dL RDW Std Deviation 81.3 H (36.4-46.3) fL RDW Coeff of Wiley 19.0 H (11.5-14.5) % Plt Count 109 L (130-400) K/uL Neut # (Auto) 9.16 H (1.4-6.5) K/uL Lymph # (Auto) 1.01 L (1.2-3.4) K/uL [place] # (Auto) 0.96 H (0.24-0.82) K/uL Immature Gran # (Auto) 0.08 H (0.00-0.02) K/uL Absolute Nucleated RBC 0.06 H (0-0) K/uL Potassium 6.2 H* (3.5-5.1) mmol/L Anion Gap 12 H (3-11) BUN 74 H (6-23) mg/dl Creatinine 9.61 H* (0.6-1.2) mg/dl BUN/Creatinine Ratio 7.7 L (10-20) Glucose 201 H (70-99(Fasting)) mg/dl POC Glucose 281 H (70-99) mg/dl Calcium 8.1 L (8.5-10.1) mg/dl Diagnostic Findings Chest X-Ray 10/25/22 18:33 XR chest 1V portable HISTORY: Shortness of breath. COMPARISON: Chest 08/28/2022. FINDINGS: No pneumothorax. No pleural effusions. The cardiac silhouette remains enlarged. There is mild central pulmonary vascular congestion without overt edema. No new focal lung consolidations to suggest a pneumonia. IMPRESSION: Mild cardiomegaly with mild congestive change. ACT 112: Negative or not required by law. Electronically signed by: Luis Franco M.D. 10/25/2022 8:14 PM Code Status & VTE Plan Code Status DNR/DNI. Supervising Physician Co-Signing Physician Notes I personally saw and examined the patient. I verified all ojeda points and agree with Elisabet Hernandez, PA-C with the following exceptions and/or additions: 62 year old female presents to the ER due to AV fistula not working at dialysis - pt reports this is usually very infrastructure technician dependant. O/E HS1+2, no murmur, Chest reduced at bases b/l, Abdo SNT A/P ESRD on dialysis with malfunction in in AV fistula - US RUE fistulogram Hyperkalemia - Insulin/dextrose given in ER, IV lasix, Lokelma, repeat level in AM with eventual goal of HD controlling potassium levels. Discussed with Dr Vegas and will defer discussion with vascular to nephrology tomorrow. PG Care Time/CCT Total # of Minutes Spent Total Time Spent with Patient: Total time spent is greater than 50% in coordination of care (as documented) at patient's floor/unit and/or counseling patient: Coding Level of Care Code 62339 INT INP/OBS CARE 3/75MIN Diagnoses ESRD (end stage renal disease) on dialysis N18.6; Z99.2 Hyperkalemia E87.5 IDDM (insulin dependent diabetes mellitus) Chronic anemia D64.9 Paroxysmal atrial fibrillation I48.0 Hypothyroidism E03.9
[2022-10-25] MEDS: CALCIUM GLUCONATE 1000 MG/60 ML NSS IV ONE ×2 (19:26→19:35)
[2022-10-25] MEDS ORDERED: FUROSEMIDE 40 MG/4 ML VIAL IV ONE ×2 (19:39→21:43)
--- NOTE | 2022-10-25 20:16 | XRay Report ---
XR chest 1V portable HISTORY: Shortness of breath. COMPARISON: Chest 08/28/2022. FINDINGS: No pneumothorax. No pleural effusions. The cardiac silhouette remains enlarged. There is mi ld central pulmonary vascular congestion without overt edema. No new focal lung consolidations to sug gest a pneumonia. IMPRESSION: Mild cardiomegaly with mild congestive change. ACT 112: Negative or not required by law. Electronically signed by: Luis Franco M.D. 10/25/2022 8:14 PM
[2022-10-25] MEDS ORDERED: SODIUM ZIRCONIUM CYCLOSILICATE 10 GM PACKET ONE (21:41)
[2022-10-25] MEDS ORDERED: ALBUTEROL HFA 8 GM INHALER INH PRN (23:50)
[2022-10-25] MEDS ORDERED: ONDANSETRON INJ 2 MG/ML 2 ML VIAL IV PRN (23:50)
[2022-10-25] MEDS ORDERED: POLYETHYLENE (MIRALAX) 17 GM PACK PO PRN (23:50)
[2022-10-25] MEDS ORDERED: NYSTATIN POWDER 15GM BTL EXT PRN (23:50)
[2022-10-25] MEDS ORDERED: DEXTROSE 50% 50 ML SYRINGE IV PRN (23:50)
[2022-10-25] MEDS ORDERED: GLUCAGON FOR INJ 1 MG VIAL SQ PRN (23:50)
[2022-10-25] MEDS ORDERED: LORazepam 0.5 MG TAB PO PRN (23:50)
[2022-10-25] MEDS ORDERED: GLUCOSE 40% GEL 15 GM TUBE PO PRN (23:50)
[2022-10-25] MEDS ORDERED: CARBOHYDRATES FOR HYPOGLYCEMIA PO PRN (23:50)
[2022-10-25] MEDS ORDERED: GLUCOSE 10 TAB/TUBE PO PRN (23:50)
[2022-10-25] MEDS ORDERED: ONDANSETRON 4 MG OD TAB PO PRN (23:59)
[2022-10-26] MEDS: INSULIN ASPART PER UNIT SC SCH ×5 (00:57→22:35)
[2022-10-26] MEDS: LANTUS PER UNIT CHARGE SQ SCH ×2 (01:30→23:00)
[2022-10-26] MEDS: LEVOTHYROXINE SODIUM 75 MCG TABLET PO SCH (06:13)
[2022-10-26 06:20] LABS: Basophils # (auto) 0.04 K/uL (0-0.2); Basophils % (auto) 0.4 %; Eosinophils # (auto) 0.04 K/uL (0-0.50); Eosinophils % (auto) 0.4 %; Hematocrit (blood only) 26.5 % (34.1-44.9); Hemoglobin 7.9 g/dl (12.0-16.0); Immature Granulocytes # (auto) 0.06 K/uL (0.00-0.02); Immature Granulocytes % (auto) 0.6 %; Lymphocytes # (auto) 0.95 K/uL (1.2-3.4); Lymphocytes % (auto) 10.3 %; Mean Corpuscular Hemoglobin 34.5 pg (25.0-34.0); Mean Corpuscular Hgb Conc 29.8 g/dL (32.0-36.0); Mean Corpuscular Volume 115.7 fL (80.0-100.0); Mean Platelet Volume 11.5 fL (9.4-12.3); Monocytes % (auto) 9.7 %; Neutrophils # (auto) 7.26 K/uL (1.4-6.5); Neutrophils % (auto) 78.6 %; Nucleated RBC # (auto) 0.05 K/uL (0-0); Nucleated RBC % (auto) 0.5 %; Platelet Count 131 K/uL (130-400); RDW Coefficient of Variation 18.9 % (11.5-14.5); RDW Standard Deviation 80.3 fL (36.4-46.3); Red Blood Count 2.29 M/uL (3.93-5.22); White Blood Count 9.25 K/ul (4.8-10.8)
[2022-10-26 06:53] LABS: Anisocytosis Present
[2022-10-26 07:07] LABS: BUN Creatinine Ratio 8.1 (10-20); Creatinine Clr Calc Pharmacy 7.6 ml/min; Est GFR (African American) 4.2 ml/min; Est GFR (Non-African American) 3.6 ml/min; Magnesium 2.1 mg/dl (1.7-2.4); Phosphorus 8.6 mg/dl (2.5-4.9); Potassium 6.6 mmol/L (3.5-5.1)
--- NOTE | 2022-10-26 08:02 | Hospitalist Progress Note ---
Date of Service October 26, 2022 Assessment & Plan (1) ESRD (end stage renal disease) on dialysis: Plan: - On dialysis T//Sat however could not have yesterday's session as there was difficulty accessing her AV graft. - [facility] nephrology consulted, and appreciate their assistance with patient - Patient still makes urine. - Initially patient was NPO for possible thrombectomy. Vascular was not available so the account retention representative was able to successfully place a central venous access. 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 - U/S venous duplex ordered - Having dialysis today - Renal dialysis/DM2 diet for now, NPO at midnight. - BMP daily. (2) AV graft thrombosis: Plan: - Await U/S venous duplex - Vascular consulted and plan to evaluate patient in the AM - NPO after midnight (3) Hyperkalemia: Plan: - Received calcium gluconate, insulin with dextrose, Lokelma, and Lasix in ED. - K today was 6.6 - Gave another IV insulin 10Units with olrbhcub23% 50ml - Gave another dose of Lokelma 2 hours after AM medications - On telemetry unit. Continue cardiac monitoring - Labs in AM (4) IDDM (insulin dependent diabetes mellitus): Plan: - Continue Lantus 10 units HS with SSI. - BSG 281 on admit. - Renal dialysis/DM2 diet fluid restriction of less than 1500 (5) Chronic anemia: Plan: - Hgb 7.9, slightly lower than recent baseline of 9 but somewhat at baseline for her over past 6 months. - No s/s of acute bleeding. Monitor on AM labs. (6) Paroxysmal atrial fibrillation: Plan: - History of, continue amiodarone. Is not on AC due to acute bleeding while on it previously requiring 5 units RBC transfusion. - Continue on cardiac monitoring (7) Hypothyroidism: Plan: - Continue levothyroxine. (8) Morbid obesity with BMI of 50.0-59.9, adult: Plan: - Renal, carb consistent diet with fluid restriction - Encouraged continued therapy Plan - Admitted to PCU. - SCDs for VTE ppx. - DNR/DNI. Admission and Anticipated Discharge Date Admission Date: October 25, 2022 Subjective Patient was seen this AM prior to dialysis. She was sitting up at the edge of her bed and was asking to get back into bed. She denied any complaints except that she felt weak. She denies any chest pain or SOB. Review of Systems Constitutional: + fatigue and + weakness; no fever, no chills and no anorexia Respiratory: no cough, no chest congestion and no dyspnea Cardiovascular: no chest pain, no lightheadedness, no syncope and no calf pain Gastrointestinal: no abdominal pain, no early satiety, no nausea and no vomiting Genitourinary: no dysuria and no urinary frequency on dialysis, still makes some urine Integumentary: no rash, no lesions and no new lesions Neurologic: + gait abnormality, + unsteadiness and + generalized weakness; no falls Psychiatric: no change in appetite, no anxiety and no confusion Physical Exam Constitutional: + ill appearing, + obese, + physical limitations and cooperative Neck: trachea midline, no thyromegaly Respiratory: decreased breath sound with some crackles at bases Cardiovascular: Rate/Rhythm: regular rate and regular rhythm Heart Sounds: normal S1 and normal S2; no murmur Extremities: + edema; no calf tenderness Gastrointestinal (Abdomen): normal bowel sounds, soft, nontender, no hepatosplenomegaly Obese Neurologic: PERRL, EOMI, accommodation nl, no face palsy, no dysarthria uses a walker Psychiatric: A+Ox3, euthymic affect Results & Data Results & Data ([facility]) Vital Signs (Past 12 Hours) Vital Signs Temp Pulse Pulse Pulse Resp BP BP 10/26/22 00:47 62 10/25/22 23:50 10/25/22 23:50 36.5 C 60 16 106/55 L 10/25/22 23:00 61 18 10/25/22 22:30 68 10/25/22 22:00 61 14 10/25/22 22:00 91/59 L 10/25/22 21:30 61 14 10/25/22 21:30 120/60 10/25/22 21:00 60 15 10/25/22 21:00 110/58 L 10/25/22 20:30 60 14 10/25/22 20:30 110/54 L 10/25/22 21:58 69 20 BP Pulse Ox O2 Del Method O2 Flow Rate 10/26/22 00:47 10/25/22 23:50 Nasal Cannula 2 10/25/22 23:50 93 Nasal Cannula 2 10/25/22 23:00 94 10/25/22 22:30 93 10/25/22 22:00 95 10/25/22 22:00 10/25/22 21:30 94 10/25/22 21:30 10/25/22 21:00 94 10/25/22 21:00 10/25/22 20:30 97 10/25/22 20:30 10/25/22 21:58 120/60 95 Nasal Cannula 3 Laboratory Results Abnormal lab results 10/25/22 10/25/22 10/25/22 Range/Units 17:40 17:40 19:37 WBC 11.26 H (4.8-10.8) K/ul RBC 2.29 L (3.93-5.22) M/uL Hgb 7.9 L (12.0-16.0) g/dl Hct 26.8 L (34.1-44.9) % MCV 117.0 H (80.0-100.0) fL MCH 34.5 H (25.0-34.0) pg MCHC 29.5 L (32.0-36.0) g/dL RDW Std Deviation 81.3 H (36.4-46.3) fL RDW Coeff of Wiley 19.0 H (11.5-14.5) % Plt Count 109 L (130-400) K/uL Neut # (Auto) 9.16 H (1.4-6.5) K/uL Lymph # (Auto) 1.01 L (1.2-3.4) K/uL Bourbon # (Auto) 0.96 H (0.24-0.82) K/uL Immature Gran # (Auto) 0.08 H (0.00-0.02) K/uL Absolute Nucleated RBC 0.06 H (0-0) K/uL Potassium 6.2 H* (3.5-5.1) mmol/L Anion Gap 12 H (3-11) BUN 74 H (6-23) mg/dl Creatinine 9.61 H* (0.6-1.2) mg/dl BUN/Creatinine Ratio 7.7 L (10-20) Glucose 201 H (70-99(Fasting)) mg/dl POC Glucose 281 H (70-99) mg/dl Calcium 8.1 L (8.5-10.1) mg/dl Phosphorus (2.5-4.9) mg/dl TIBC (250-450) mcg/dl 10/26/22 10/26/22 10/26/22 Range/Units 00:39 06:06 06:06 WBC (4.8-10.8) K/ul RBC 2.29 L (3.93-5.22) M/uL Hgb 7.9 L (12.0-16.0) g/dl Hct 26.5 L (34.1-44.9) % MCV 115.7 H (80.0-100.0) fL MCH 34.5 H (25.0-34.0) pg MCHC 29.8 L (32.0-36.0) g/dL RDW Std Deviation 80.3 H (36.4-46.3) fL RDW Coeff of Wiley 18.9 H (11.5-14.5) % Plt Count (130-400) K/uL Neut # (Auto) 7.26 H (1.4-6.5) K/uL Lymph # (Auto) 0.95 L (1.2-3.4) K/uL Bourbon # (Auto) 0.90 H (0.24-0.82) K/uL Immature Gran # (Auto) 0.06 H (0.00-0.02) K/uL Absolute Nucleated RBC 0.05 H (0-0) K/uL Potassium 6.6 H* (3.5-5.1) mmol/L Anion Gap 12 H (3-11) BUN 83 H (6-23) mg/dl Creatinine 10.28 H* D (0.6-1.2) mg/dl BUN/Creatinine Ratio 8.1 L (10-20) Glucose 140 H (70-99(Fasting)) mg/dl POC Glucose 114 H (70-99) mg/dl Calcium 8.0 L (8.5-10.1) mg/dl Phosphorus 8.6 H (2.5-4.9) mg/dl TIBC (250-450) mcg/dl 10/26/22 10/26/22 10/26/22 Range/Units 07:46 11:32 14:12 WBC (4.8-10.8) K/ul RBC (3.93-5.22) M/uL Hgb (12.0-16.0) g/dl Hct (34.1-44.9) % MCV (80.0-100.0) fL MCH (25.0-34.0) pg MCHC (32.0-36.0) g/dL RDW Std Deviation (36.4-46.3) fL RDW Coeff of Wiley (11.5-14.5) % Plt Count (130-400) K/uL Neut # (Auto) (1.4-6.5) K/uL Lymph # (Auto) (1.2-3.4) K/uL Bourbon # (Auto) (0.24-0.82) K/uL Immature Gran # (Auto) (0.00-0.02) K/uL Absolute Nucleated RBC (0-0) K/uL Potassium (3.5-5.1) mmol/L Anion Gap (3-11) BUN (6-23) mg/dl Creatinine (0.6-1.2) mg/dl BUN/Creatinine Ratio (10-20) Glucose (70-99(Fasting)) mg/dl POC Glucose 157 H 126 H (70-99) mg/dl Calcium (8.5-10.1) mg/dl Phosphorus (2.5-4.9) mg/dl TIBC 235 L (250-450) mcg/dl PG Care Time/CCT Total # of Minutes Spent Total Time Spent with Patient: Total time spent is greater than 50% in coordination of care (as documented) at patient's floor/unit and/or counseling patient: Coding Level of Care Code 12007 SUB INP/OBS CARE 2/35MIN Diagnoses ESRD (end stage renal disease) on dialysis N18.6; Z99.2 AV graft thrombosis T82.868A Hyperkalemia E87.5 IDDM (insulin dependent diabetes mellitus) Chronic anemia D64.9 Paroxysmal atrial fibrillation I48.0 Hypothyroidism E03.9 Morbid obesity with BMI of 50.0-59.9, adult E66.01; Z68.43
[2022-10-26] MEDS ORDERED: INSULIN HUMAN REGULAR PER UNIT 10 UNITS in SYRINGE 0 ML IV STA (08:24)
[2022-10-26] MEDS ORDERED: DEXTROSE 50% 50 ML SYRINGE IV STA (08:25)
[2022-10-26] MEDS ORDERED: INSULIN HUMAN REGULAR PER UNIT 10 UNITS in SYRINGE 9.9 ML IV STA (08:26)
[2022-10-26] MEDS: PANTOprazole 40 MG TAB PO SCH (08:29)
[2022-10-26] MEDS: CALCIUM ACETATE 667 MG CAP/TAB PO SCH ×3 (08:29→18:13)
[2022-10-26] MEDS: EZETIMIBE 10 MG TABLET PO SCH (08:29)
[2022-10-26] MEDS: FUROSEMIDE 80 MG TAB PO SCH (08:30)
[2022-10-26] MEDS: ATORVASTATIN 20 MG TAB PO SCH (08:30)
[2022-10-26] MEDS: NEPHROCAPS PO SCH (08:30)
[2022-10-26] MEDS: SODIUM ZIRCONIUM CYCLOSILICATE 10 GM PACKET PO SCH (08:31)
--- NOTE | 2022-10-26 08:51 | Nephrology Consultation ---
Date of Consultation October 26, 2022 Assessment & Plan (1) Hyperkalemia: for IV insulin again this am keep her on spinning operator edge burnisher uppers consulted for temp line placement as soon as feasible; then bedside dialysis today >> assistance appreciated Care coordinated w/ hospitalist team (2) ESRD (end stage renal disease) on dialysis: dialysis today; reeval needs daily continue binders ok to eat > dialysis diet; 1.5L fluid limit >>give lokelma daily 10 gm while K elevated > note must be timed relative to other meds and pls work w/ pharmacy on this >not on abtx currently; f/u pending cxs given mild leukocytosis, malaise on presentation; no indication of AVG infection (3) AV graft thrombosis: vascular surgery consulted for AVG thrombectomy > likely not before tomorrow or 10/28 >>>concern voiced by critical care in eval for temp line that pt may have L IJ thrombus >> venous duplex ordered to evaluate History of Present Illness Reason for Consultation: ESRD, AVG malfunction, hyperkalemia Requesting Physician: Dr Guajardo Attending Physician: Jimmy Guajardo History of Present Illness 62 y/o F w/ ESRD and medical hx as below who was sent to [facility] [place] from dialysis yesterday after they could not access her AVG. Pt was weak and had fallen (per pt slipped to the ground) w/o hitting her head earlier in the day yesterday. PMH includes systolic HF EF 45%, ESRD on in center hemodialysis via AVG, chronic liver laceration w/ transfer from here late August 2022 to [facility], recurrent bacteremia most recently with MSSA bacteremia March 2022; HTN, DM on insulin; obesity, lumbar surgery; chronic hypoxia on 2L 02NC w/ exertion per her report. She dialyzes under the care of my partner Dr Ochoa in [place]; his prior notes in this system note that she is frequently nonadherent to treatment recommendations and generally dialyzes 2 X weekly or even 1X weekly despite recommended 3X weekly. The dialysis team was unable to access the arterial limb of AVG yesterday and pulled clot from it instead; the access had no thrill or bruit; pt sent here. She was 9 kg over her target weight and was weaker than baseline per personalization specialist. The pt tells me she had work done on her AVG one week back; no records available on this. Lives at home w/ her . still feeling quite tired and weak today. did have some diarrhea recently ; no f/n/v. Denies sick contacts. Denies abdominal pain or dyspnea. no cough. no edema. voids daily usually spoonfuls of urine; no recent changes in voiding habits. 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 metformin AdvReac Intermediate Diarrhea Verified 10/25/22 17:53 Home Medications Medication Instructions Recorded Confirmed Type atorvastatin 20 mg tablet 20 mg PO QAM 11/16/21 10/25/22 History calcium acetate(phosphat bind) 667 1,334 mg PO TIDM 11/16/21 10/25/22 History mg capsule ezetimibe 10 mg tablet (Zetia) 10 mg PO QAM 11/16/21 10/25/22 History insulin glargine 100 unit/mL 10 unit subcut HS 11/16/21 10/25/22 History subcutaneous solution (Lantus U-100 Insulin) vitamin B complex and vitamin C 1 cap PO QAM 11/16/21 10/25/22 History no.20-folic acid 1 mg capsule (Renal Caps) furosemide 80 mg tablet (Lasix) 80 mg PO 4XWK #0 tabs 04/07/22 10/25/22 Rx sodium zirconium cyclosilicate 10 10 g PO 4XWK #0 ea 04/07/22 10/25/22 Rx gram oral powder packet (Lokelma) albuterol sulfate 90 mcg/actuation 2 puff inhalation DIRECTED PRN 09/05/22 10/25/22 History aerosol inhaler Shortness Of Breath apixaban 2.5 mg tablet (Eliquis) 2.5 mg PO BID 09/05/22 10/25/22 History levothyroxine 25 mcg capsule 37.5 mcg PO DAILY 09/05/22 10/25/22 History amiodarone 100 mg tablet 100 mg PO QAM 10/25/22 10/25/22 History lorazepam 0.5 mg tablet 0.5 mg PO TID PRN Anxiety 10/25/22 10/25/22 History nystatin 100,000 unit/gram topical 1 applic topical BID PRN RASH 10/25/22 10/25/22 History powder UNDER BREASTS ondansetron HCl 4 mg tablet 4 mg PO Q8H PRN NAUSEA/VOMITING 10/25/22 10/25/22 History pantoprazole 40 mg tablet,delayed 40 mg PO QAM 10/25/22 10/25/22 History release Patient History Medical History (Updated 10/26/22 @ 11:22 by Saray Guzman MD, PhD) AV fistula Bacteremia recurrent; MSSA bacteremia March 2022 Cardiomyopathy Central venous line infection CHF (congestive heart failure) Chronic anemia DVT (deep venous thrombosis) ESRD (end stage renal disease) on dialysis HTN (hypertension) Hypothyroidism IDDM (insulin dependent diabetes mellitus) Liver laceration Necrotizing fasciitis Paroxysmal atrial fibrillation Surgical History History of cholecystectomy History of lumbar surgery Family History Other Family history non-contributory Social History Smoking Status: Former smoker Tobacco Type: Cigarettes Second Hand Exposure: No; Hx Alcohol Use: Yes Hx Substance Use: No Preferred Language: French Communication Ability: Effective Reformatory Attendant Required: No Beliefs That Will Affect Care: None marital status: Current Living Situation: Family Current Living Situation Comment: niece Other Information That Helps Us Care for You: No Feels Safe at Home: Yes Safety Concerns: Feels Safe At This Time Assistive Devices: Walker and Wheelchair Review of Systems Review of Systems: All systems reviewed & are unremarkable except as noted in HPI & below Physical Exam Constitutional: well developed, + ill appearing (sitting up on side of bed hunched leaning on bedside table, looks tired), + morbidly obese and cooperat adrienne; no acute distress Eyes: EOM intact bilaterally ENMT: Ears: no external ear abnormality Nose: no external nose abnormality Mouth: + dry oral mucous membranes Neck: no nuchal rigidity Respiratory: normal respiratory effort Auscultation: + diminished lung sounds (blake R base) and + crackles (L base); no wheezes Cardiovascular: Rate/Rhythm: regular rate and regular rhythm Extremities: + edema (trace distal) and + AV fistula (AVG RUE proximal no t/b; not red/warm/tender) Gastrointestinal (Abdomen): Inspection/Auscultation: normal bowel sounds Percussion/Palpation: abdomen soft; abdomen nontender Musculoskeletal: Extremities: strength 5/5 throughout Skin: no rashes, warm and dry Neurologic: mc, fluent speech, no tremor but frequent myoclonic jerks Psychiatric: Orientation: oriented x 3 Speech: normal rate/rhythm/volume of speech Results & Data ([facility]) Vital Signs (Past 12 Hours) Vital Signs Temp Pulse Pulse Pulse Resp BP BP 10/26/22 08:13 37.2 C 68 18 115/63 10/26/22 00:47 62 10/25/22 23:50 10/25/22 23:50 36.5 C 60 16 106/55 L 10/25/22 23:00 61 18 10/25/22 22:30 68 10/25/22 22:00 61 14 10/25/22 22:00 91/59 L 10/25/22 21:30 61 14 10/25/22 21:30 120/60 10/25/22 21:00 60 15 10/25/22 21:00 110/58 L 10/25/22 21:58 69 20 BP Pulse Ox O2 Del Method O2 Flow Rate 10/26/22 08:13 91 Nasal Cannula 4 10/26/22 00:47 10/25/22 23:50 Nasal Cannula 2 10/25/22 23:50 93 Nasal Cannula 2 10/25/22 23:00 94 10/25/22 22:30 93 10/25/22 22:00 95 10/25/22 22:00 10/25/22 21:30 94 10/25/22 21:30 10/25/22 21:00 94 10/25/22 21:00 10/25/22 21:58 120/60 95 Nasal Cannula 3 Laboratory Results 10/26/22 06:06 10/26/22 06:06
[2022-10-26] MEDS ORDERED: SODIUM ZIRCONIUM CYCLOSILICATE 10 GM PACKET PO ONE (10:11)
[2022-10-26] MEDS ORDERED: SODIUM CHLORIDE 0.9% 1000ML 1,000 ML IV PRN (10:13)
[2022-10-26] MEDS ORDERED: EPOETIN ALFA 20,000 UNITS/ML VIAL IV ONE (10:23)
[2022-10-26] MEDS ORDERED: HEPARIN SOD (PORCINE) 1000 UNIT/ML IV ONE (10:45)
--- NOTE | 2022-10-26 10:54 | Procedure Note ---
Procedure Note Date of Service October 26, 2022 Note Procedure date: Noted above Procedure: Temporary HD catheter Pre-procedure indication: Need for temporary renal replacement therapy Post-procedure Diagnosis: same as above Prior to Procedure: Informed Consent: The risks, benefits, indications, potential complications, and alternatives were explained to the patient and informed consent obtained. Attending Staff: Anamaria Pulliam DO Resident/APC: DO Tanja Skin Prep: Chlorhexidine Anesthesia: 4 mL 1% lidocaine without epinephrine The identity of the patient was confirmed and a bedside time out was performed. Description of Procedure: The left internal jugular area was evaluated via ultrasound. There was nonocclusive thrombus in the mid left internal jugular vein. The inner lumen did not appear to be of a caliber sufficient for a temporary hemodialysis catheter. The right side was then evaluated by ultrasound. After sterile prep and sterile drape utilizing standard sterile technique the superficial skin of the right internal jugular area was anesthetized. The target vessel was identified and entered with an 18-gauge needle. Dark venous blood return was noted. A guidewire was inserted through the needle and into the vessel. The needle was withdrawn and a skin camilo was made. A tissue dilator was advanced via Seldinger technique and removed. A double lumen catheter was inserted via Seldinger technique and the guidewire removed. All ports blaise and flushed easily. A Biopatch was placed, and the catheter was secured via nylon suture. A sterile dressing was then applied. Complications: None Estimated blood loss: Trace Patient tolerated the procedure well. Procedure Date: Noted Above Procedure: Procedural Ultrasound Indication: Central venous access Attending: Anamaria Pulliam DO Resident/Physician Food Service Technician: Tanja SUAREZ Artery visualized: Yes Vein visualized: Yes Compressible Vein: Yes Vein patent: Yes Guidewire or Short Catheter seen in vein prior to dilation: Yes Line confirmed in Vein with ultrasound: Yes Lung Sliding on side of attempt (if applicable): NA If no lung sliding or not obtained has CXR been ordered: Yes Left internal jugular findings were discussed with nephrology team. Follow-up formal ultrasound imaging will be ordered. Impression: Successful central venous access placement, probable chronic thrombus in left internal jugular vein Images obtained are saved for permanent record Coding CPT Codes Tubes, Drains, and Vasc Access - Tubes, Drains, and Vasc Access: [id number] Insertion of cannula for hemodialysis ([id number]) Tubes, Drains, and Vasc Access - Tubes, Drains, and Vasc Access: [id number] Ultrasound Guidance For Vascular ([id number]) [facility] [place]Ch[place]) Tubes, Drains, and Vasc Access Procedure 1: Tubes, Drains, and Vasc Access: [id number] Insertion of cannula for hemodialysis Procedure 2: Tubes, Drains, and Vasc Access: [id number] Ultrasound Guidance For Vascular
--- NOTE | 2022-10-26 10:55 | XRay Report ---
XR chest 1V portable HISTORY: 62 years-old Female HD catheter placement status post placement of a right IJ hemodialysis catheter COMPARISON: Chest radiograph 10/25/2022 TECHNIQUE: AP view of the chest FINDINGS: Cardiac silhouette is enlarged. Atherosclerosis of the aorta. Pulmonary vascular congestion mild inte rstitial coarsening. Status post placement of a dual lumen right IJ hemodialysis catheter with distal tip in the expected location of the brachiocephalic SVC confluence. No postprocedural pneumothorax. Questioned trace pleural effusions with mild left basilar densities again noted. Bones appear grossly intact. IMPRESSION: 1. Status post placement of a right IJ hemodialysis catheter, distal tip terminating in the expected location of the brachiocephalic SVC confluence. 2. No postprocedural pneumothorax. 3. Cardiomegaly with pulmonary vascular congestion. ACT 112: Negative or not required by law. The above report was generated using voice recognition software. It may contain grammatical, syntax o r spelling errors. Electronically signed by: Maik Narayanan M.D. 10/26/2022 10:53 AM
[2022-10-26 15:02] LABS: Iron 63 mcg/dl (35-150); Total Iron Binding Cap Calc 235 mcg/dl (250-450); Transferrin (FE) Percent Satur 27 % (15-50); Unsaturated Iron Binding Cap 172 mcg/dl (155-355)
--- NOTE | 2022-10-26 15:48 | Communication Note ---
Date of Service: October 26, 2022 Patient for thrombectomy of her fistula tomorrow at 0800 Will see her in the am
[2022-10-26] MEDS: AMIODARONE 200 MG TAB PO SCH (16:48)
[2022-10-27] MEDS: ACETAMINOPHEN 325 MG TAB PO PRN ×2 (01:23→18:21)
[2022-10-27 06:01] LABS: Hematocrit (blood only) 24.7 % (34.1-44.9); Hemoglobin 7.4 g/dl (12.0-16.0); Mean Corpuscular Hemoglobin 34.3 pg (25.0-34.0); Mean Corpuscular Volume 114.4 fL (80.0-100.0); Mean Platelet Volume 11.4 fL (9.4-12.3); Nucleated RBC # (auto) 0.05 K/uL (0-0); Nucleated RBC % (auto) 0.9 %; Platelet Count 108 K/uL (130-400); RDW Coefficient of Variation 18.6 % (11.5-14.5); RDW Standard Deviation 78.3 fL (36.4-46.3); Red Blood Count 2.16 M/uL (3.93-5.22); White Blood Count 5.47 K/ul (4.8-10.8)
[2022-10-27] MEDS: LEVOTHYROXINE SODIUM 75 MCG TABLET PO SCH (06:10)
--- NOTE | 2022-10-27 06:31 | Electrocardiogram Report ---
Test Reason : Blood Pressure : / mmHG Vent. Rate : 071 BPM Atrial Rate : 071 BPM P-R Int : 248 ms QRS Dur : 100 ms QT Int : 424 ms P-R-T Axes : 066 134 -47 degrees QTc Int : 460 ms Poor data quality, interpretation may be adversely affected Sinus rhythm with 1st degree A-V block Right axis deviation Low voltage QRS Septal infarct , age undetermined Nonspecific T wave abnormality Abnormal ECG When compared with ECG of 05-SEP-2022 12:16, No significant change Confirmed by Cain Perez ([id number]) on 10/27/2022 6:31:48 AM Referred By: REFERRED SELF Confirmed By:Cain Perez
[2022-10-27 06:34] LABS: Creatinine Clr Calc Pharmacy 10.7 ml/min; Est GFR (African American) 6.4 ml/min; Est GFR (Non-African American) 5.5 ml/min; Magnesium 1.9 mg/dl (1.7-2.4); Potassium 4.9 mmol/L (3.5-5.1)
[2022-10-27] MEDS ORDERED: MIDAZOLAM HCL 1 MG/ML 2ML VIAL ONE (06:41)
[2022-10-27] MEDS ORDERED: fentaNYL citrate 100 MCG/2 ML VIAL ONE (06:42)
[2022-10-27] MEDS ORDERED: BUPIVACAINE/EPINEPHRINE 0.5% MPF 1:200,000 30 ML VIAL ONE (06:59)
[2022-10-27] MEDS ORDERED: HEPARIN (PORCINE) 1000 UNIT/ML 10 ML (CATH LAB USE ONLY) ONE (06:59)
[2022-10-27] MEDS ORDERED: GELATIN SPONGE 12-7MM ONE (07:00)
[2022-10-27] MEDS ORDERED: BUPIVACAINE 0.5 % 5 MG/1 ML MPF 30ML VIAL ONE (07:00)
[2022-10-27] MEDS ORDERED: LIDOCAINE 1% LOCAL 20 ML VIAL ONE (07:00)
[2022-10-27] MEDS ORDERED: THROMBIN FOR SOLN 20000 UNIT KIT ONE (07:00)
--- NOTE | 2022-10-27 07:08 | Ultrasound Report ---
ULTRASOUND LEFT UPPER EXTREMITY VENOUS CLINICAL HISTORY: Left internal jugular vein thrombus. COMPARISON STUDY: No priors. TECHNIQUE: Real-time, grayscale, and color Doppler sonography of the left internal jugular, left subc lavian, and left innominate veins is performed. Compression and augmentation were utilized. FINDINGS: Nonocclusive deep venous thrombosis is seen in the left internal jugular vein. Normal veno us waveforms and augmentation are seen within the left subclavian vein and the left innominate vein. IMPRESSION: 1. Nonocclusive deep venous thrombosis is seen within the left internal jugular vein. 2. The subclavian and innominate veins appear patent. ACT 112: Negative or not required by law. Electronically signed by: Gavin Holder M.D. 10/27/2022 7:06 AM
--- NOTE | 2022-10-27 07:27 | Consultation ---
Date of Consultation October 27, 2022 Assessment & Plan (1) Arteriovenous fistula thrombosis: Patient to undergo thrombectomy of her dialysis graft with any revisions required. I have discussed the risks options and benefits of the procedure with the patient. The patient understands the risks options and benefits and agrees to the procedure. History of Present Illness Reason for Consultation: Thrombosed left upper arm fistula Attending Physician: Jimmy Guajardo History of Present Illness Patient with a left upper arm dialysis graft which could not be cannulated. It was found to be thrombosed. She has a temporary dialysis catheter in place. 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 metformin AdvReac Intermediate Diarrhea Verified 10/25/22 17:53 Home Medications Medication Instructions Recorded Confirmed Type atorvastatin 20 mg tablet 20 mg PO QAM 11/16/21 10/25/22 History calcium acetate(phosphat bind) 667 1,334 mg PO TIDM 11/16/21 10/25/22 History mg capsule ezetimibe 10 mg tablet (Zetia) 10 mg PO QAM 11/16/21 10/25/22 History insulin glargine 100 unit/mL 10 unit subcut HS 11/16/21 10/25/22 History subcutaneous solution (Lantus U-100 Insulin) vitamin B complex and vitamin C 1 cap PO QAM 11/16/21 10/25/22 History no.20-folic acid 1 mg capsule (Renal Caps) furosemide 80 mg tablet (Lasix) 80 mg PO 4XWK #0 tabs 04/07/22 10/25/22 Rx sodium zirconium cyclosilicate 10 10 g PO 4XWK #0 ea 04/07/22 10/25/22 Rx gram oral powder packet (Lokelma) albuterol sulfate 90 mcg/actuation 2 puff inhalation DIRECTED PRN 09/05/22 10/25/22 History aerosol inhaler Shortness Of Breath apixaban 2.5 mg tablet (Eliquis) 2.5 mg PO BID 09/05/22 10/25/22 History levothyroxine 25 mcg capsule 37.5 mcg PO DAILY 09/05/22 10/25/22 History amiodarone 100 mg tablet 100 mg PO QAM 10/25/22 10/25/22 History lorazepam 0.5 mg tablet 0.5 mg PO TID PRN Anxiety 10/25/22 10/25/22 History nystatin 100,000 unit/gram topical 1 applic topical BID PRN RASH 10/25/22 10/25/22 History powder UNDER BREASTS ondansetron HCl 4 mg tablet 4 mg PO Q8H PRN NAUSEA/VOMITING 10/25/22 10/25/22 History pantoprazole 40 mg tablet,delayed 40 mg PO QAM 10/25/22 10/25/22 History release Patient History Medical History AV fistula Bacteremia recurrent; MSSA bacteremia March 2022 Cardiomyopathy Central venous line infection CHF (congestive heart failure) Chronic anemia DVT (deep venous thrombosis) ESRD (end stage renal disease) on dialysis HTN (hypertension) Hypothyroidism IDDM (insulin dependent diabetes mellitus) Liver laceration Necrotizing fasciitis Paroxysmal atrial fibrillation Surgical History History of cholecystectomy History of lumbar surgery Family History Other Family history non-contributory Social History Smoking Status: Former smoker Tobacco Type: Cigarettes Second Hand Exposure: No; Hx Alcohol Use: Yes Hx Substance Use: No Preferred Language: Bruneian Communication Ability: Effective Recep Required: No Beliefs That Will Affect Care: None marital status: Current Living Situation: Family Current Living Situation Comment: niece Other Information That Helps Us Care for You: No Feels Safe at Home: Yes Safety Concerns: Feels Safe At This Time Assistive Devices: Walker and Wheelchair Review of Systems Review of Systems: All systems reviewed & are unremarkable except as noted in HPI & below Physical Exam Constitutional: well developed and well nourished Respiratory: normal respiratory effort, lungs clear to auscultation Cardiovascular: RRR, no murmur, no edema Extremities: normal capillary refill; no AV fistula Gastrointestinal (Abdomen): normal bowel sounds, soft, nontender, no hepatosplenomegaly Musculoskeletal: no cyanosis or clubbing, extremities motor strength 5/5 Neurologic: CN's II-XI intact bilaterally and moves all extremities Psychiatric: Orientation: alert and oriented x 3 Results & Data ([facility]) Vital Signs (Past 12 Hours) Vital Signs Temp Pulse Pulse Resp BP Pulse Ox O2 Del Method 10/27/22 03:54 37.1 C 99 H 18 134/89 98 Nasal Cannula 10/26/22 23:50 70 10/26/22 23:00 36.3 C L 67 18 96/51 L 95 Nasal Cannula 10/26/22 20:59 Nasal Cannula 10/26/22 20:00 37.1 C 68 18 117/69 93 Nasal Cannula O2 Flow Rate 10/27/22 03:54 10/26/22 23:50 10/26/22 23:00 10/26/22 20:59 4 10/26/22 20:00
[2022-10-27] MEDS ORDERED: HEPARIN SOD (PORCINE) 1000 UNIT/ML IV ONE (07:55)
[2022-10-27] MEDS ORDERED: SODIUM CHLORIDE 0.9% 1000ML 1,000 ML IV PRN (07:55)
[2022-10-27] MEDS ORDERED: CLINDAMYCIN 600 MG/D5W 50 ML BAG IV ONE ×2 (07:58→08:15)
[2022-10-27] MEDS ORDERED: LIDOCAINE 2% MPF LOCAL 5 ML VIAL INFIL ONE (07:58)
[2022-10-27] MEDS ORDERED: PROPOFOL IV EMULSION 10 MG/ML 20 ML VIAL IV ONE ×2 (07:58→08:55)
[2022-10-27] MEDS ORDERED: ONDANSETRON INJ 2 MG/ML 2 ML VIAL ONE (07:58)
[2022-10-27] MEDS ORDERED: fentaNYL citrate 100 MCG/2 ML VIAL IV PRN (08:00)
[2022-10-27] MEDS ORDERED: ATROPINE SULFATE 0.1 MG/ML 10ML SYR IV PRN (08:00)
[2022-10-27] MEDS ORDERED: EPOETIN ALFA 20,000 UNITS/ML VIAL IV ONE (08:00)
[2022-10-27] MEDS ORDERED: ONDANSETRON INJ 2 MG/ML 2 ML VIAL IV PRN (08:00)
--- NOTE | 2022-10-27 08:00 | Anesthesiology Consultation ---
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 metformin AdvReac Intermediate Diarrhea Verified 10/25/22 17:53 Medications Home Medications Medication Instructions Recorded Confirmed Last Taken atorvastatin 20 mg tablet 20 mg PO QAM 11/16/21 10/25/22 10/25/22 calcium acetate(phosphat bind) 667 1,334 mg PO TIDM 11/16/21 10/25/22 10/25/22 12:00 mg capsule ezetimibe 10 mg tablet (Zetia) 10 mg PO QAM 11/16/21 10/25/22 10/25/22 insulin glargine 100 unit/mL 10 unit subcut HS 11/16/21 10/25/22 10/24/22 subcutaneous solution (Lantus U-100 Insulin) vitamin B complex and vitamin C 1 cap PO QAM 11/16/21 10/25/22 10/25/22 no.20-folic acid 1 mg capsule (Renal Caps) furosemide 80 mg tablet (Lasix) 80 mg PO 4XWK #0 tabs 04/07/22 10/25/22 10/24/22 sodium zirconium cyclosilicate 10 10 g PO 4XWK #0 ea 04/07/22 10/25/22 10/24/22 gram oral powder packet (Lokelma) albuterol sulfate 90 mcg/actuation 2 puff inhalation DIRECTED PRN 09/05/22 10/25/22 Unknown aerosol inhaler Shortness Of Breath apixaban 2.5 mg tablet (Eliquis) 2.5 mg PO BID 09/05/22 10/25/22 10/25/22 08:00 levothyroxine 25 mcg capsule 37.5 mcg PO DAILY 09/05/22 10/25/22 10/25/22 amiodarone 100 mg tablet 100 mg PO QAM 10/25/22 10/25/22 10/25/22 lorazepam 0.5 mg tablet 0.5 mg PO TID PRN Anxiety 10/25/22 10/25/22 Unknown nystatin 100,000 unit/gram topical 1 applic topical BID PRN RASH 10/25/22 10/25/22 Unknown powder UNDER BREASTS ondansetron HCl 4 mg tablet 4 mg PO Q8H PRN NAUSEA/VOMITING 10/25/22 10/25/22 Unknown pantoprazole 40 mg tablet,delayed 40 mg PO QAM 10/25/22 10/25/22 10/25/22 release Active Medications Generic Name Dose Route Start Last Admin Trade Name Freq PRN Reason Stop Dose Admin Acetaminophen 650 mg 10/25/22 23:50 10/27/22 01:23 Acetaminophen 325 Mg Tab PO 11/24/22 23:49 650 mg Q4H PRN Administration Pain or Fever Amiodarone HCl 100 mg 10/26/22 09:00 10/26/22 16:48 Amiodarone 200 Mg Tab PO 11/25/22 08:59 [facility] Given [facility] Atorvastatin Calcium 20 mg 10/26/22 09:00 10/26/22 08:30 Atorvastatin 20 Mg Tab PO 11/25/22 08:59 20 mg QAM [facility] Administration Calcium Acetate 1,334 mg 10/26/22 08:00 10/26/22 18:13 Calcium Acetate 667 Mg Cap/Tab PO 11/25/22 07:59 1,334 mg TIDM [facility] Administration Ezetimibe 10 mg 10/26/22 09:00 10/26/22 08:29 Ezetimibe 10 Mg Tablet PO 11/25/22 08:59 10 mg QAM [facility] Administration Furosemide 80 mg 10/26/22 09:00 10/26/22 08:30 Furosemide 80 Mg Tab PO 11/25/22 08:59 80 mg [email or web address] [facility] Administration Insulin Aspart 0 units 10/25/22 23:50 10/26/22 22:35 Insulin Aspart Per Unit SC 11/24/22 23:49 Not Given ACHS [facility] Insulin Glargine 10 units 10/25/22 23:50 10/26/22 23:00 Lantus Per Unit Charge SQ 11/24/22 23:49 10 units HS TOBY Administration Levothyroxine Sodium 37.5 mcg 10/26/22 06:30 10/27/22 06:10 Levothyroxine Sodium 75 Mcg Tablet PO 11/25/22 06:29 37.5 mcg DAILYBB TOBY Administration Pantoprazole Sodium 40 mg 10/26/22 09:00 10/26/22 08:29 Pantoprazole 40 Mg Tab PO 11/25/22 08:59 40 mg QAM TOBY Administration Sodium Zirconium Cyclosilicate 10 gm 10/26/22 09:00 10/26/22 08:31 Sodium Zirconium Cyclosilicate 10 Gm Packet PO 11/25/22 08:59 Not Given [email or web address] TOBY Vitamin B Complex/Folic Acid 1 cap 10/26/22 09:00 10/26/22 08:30 Nephrocaps PO 11/25/22 08:59 1 cap QAM TOBY Administration NPO Date Last Intake of Fluids: 10/26/22 Time Last Intake of Fluids: 22:00 Date Last Intake of Solids: 10/26/22 Time Last Intake of Solids: 18:00 Past Medical History Medical History (Updated 10/27/22 @ 08:00 by Osmany Freeman MD) Acute on chronic anemia AV fistula Bacteremia recurrent; MSSA bacteremia March 2022 Cardiomyopathy EF 30-35% in March 2022 echo Central venous line infection CHF (congestive heart failure) Chronic anemia DVT (deep venous thrombosis) ESRD (end stage renal disease) on dialysis HTN (hypertension) Hypothyroidism IDDM (insulin dependent diabetes mellitus) Liver laceration Necrotizing fasciitis Paroxysmal atrial fibrillation Past Family History Family History Other Family history non-contributory Past Surgical History Surgical History History of cholecystectomy History of lumbar surgery Social History Smoking Status: Former smoker Hx Alcohol Use: Yes alcohol intake frequency: holidays/special occasions only Hx Substance Use: No substance use type: does not use Physical Exam Vital Signs Last Vital Signs Temp 37 C 10/27/22 07:26 Pulse 69 10/27/22 07:26 Resp 20 10/27/22 07:26 BP 107/54 L 10/27/22 07:26 Pulse Ox 93 10/27/22 07:26 O2 Del Method 10/27/22 07:26 O2 Flow Rate 3 10/27/22 07:26 Testing Laboratory Results 10/27/22 05:34 10/27/22 05:34 10/26/22 06:06 Aerobic Blood Culture - Preliminary Blood No growth in Aerobic bottle after 24 hours. Anaerobic Blood Culture - Preliminary No growth in Anaerobic bottle after 24 hours. 10/26/22 06:09 Aerobic Blood Culture - Preliminary Blood No growth in Aerobic bottle after 24 hours. Anaerobic Blood Culture - Preliminary No growth in Anaerobic bottle after 24 hours. 10/26/22 20:04 POC Glucose 123 H Electrocardiogram Date: 10/25/22 Findings: + NSR @ (71), + NSST changes and + poor R wave progression Chest X-Ray Date: 10/26/22 Findings: + cardiomegaly no pulmonary vascular congestion Echocardiogram Date: 03/24/22 EF: 30-35% Valvular Disease: + no significant valvular disease LV moderately dilated
[2022-10-27] MEDS ORDERED: Nursing to Pharmacy Communication SCH (08:15)
[2022-10-27] MEDS ORDERED: KETAMINE 50 MG/5 ML SYRINGE ONE (08:18)
[2022-10-27] MEDS ORDERED: SODIUM CHLORIDE 0.9% 1000ML 1,000 ML IV SCH (08:30)
[2022-10-27] MEDS ORDERED: ePHEDrine sulfate 50 MG/ML SYR ONE (08:36)
[2022-10-27] MEDS ORDERED: VISIPAQUE IV ONE (09:30)
--- NOTE | 2022-10-27 09:32 | Post Operative Brief Note ---
Immediate Post Op Note v1 Date of Surgery October 27, 2022 Pre & Post Diagnosis Operation Date: 10/27/22 08:00 Pre-Op Diagnosis: End Stage Renal Disease On Dialysis with arteriovenous graft occlusion Post-Op Diagnosis: End Stage Renal Disease On Dialysis with arteriovenous graft occlusion I identified the patient and participated in the time-out.: Yes Procedure Operation Date: 10/27/22 08:00 Actual Procedures p Right Upper Extremity Thrombectomy of Fistula, ADMIN DIR of Peripheral venous, fistulogram (Right) - Kalpesh Arevalo MD Surgeon Kalpesh Arevalo MD Land Management Forester MD Tiffanie Estimated Blood Loss 30 Findings Consistent with Post-Op Diagnosis Anesthesia Type MAC Complications none Disposition Accompanied Patient To Recovery: No Disposition: Recovery Room
--- NOTE | 2022-10-27 10:11 | Operative Report ---
Post Operative Report Pre & Post Diagnosis Operation Date: 10/27/22 08:00 Pre-Op Diagnosis: End Stage Renal Disease On Dialysis with arteriovenous graft malfunction Post-Op Diagnosis: End Stage Renal Disease On Dialysis with arteriovenous graft malfunction I identified the patient and participated in the time-out.: Yes Procedure Operation Date: 10/27/22 08:00 Actual Procedures p Right Upper Extremity Thrombectomy of Fistula, MACHINIST SET UP of Peripheral venous,(Right) - Kalpesh Arevalo MD s Fistulogram (Right) - Kalpesh Arevalo MD Surgeon Kalpesh Arevalo MD Gas Cutting Machine Operator Cachorro Razo MD Estimated Blood Loss 30 Findings Consistent with Post-Op Diagnosis Thrombosed left upper extremity AV graft. Thrombectomy of graft yielding significant clot. Following thrombectomy flow through graft restored. >50% christy nosis noted at distal anastomosis, significantly improved following balloon angioplasty Specimens None Drains None Anesthesia Type MAC Complications None Disposition Accompanied Patient To Recovery: Yes Indications Thrombosed AV graft of the left upper extremity with patient in need of hemodialysis Description of Procedure The patient was taken to the operating room and placed in the supine position with the left arm extended. The left arm was then prepped and draped in a christy rile manner. The AV graft was identified under ultrasound guidance. Local anesthetic was administered over the graft, 6cc of 1% lidocaine. A small transverse incision was made just above the antecubital fossa over the mid-graft using a #10 blade scalpel. Dissection was carried down through subcutaneous tissue using Metzenbaum scissors and the graft was identified. The graft was mobilized a short distance and then controlled with a vessel loop. A transverse arteriotomy was then made in the graft and thrombus was visualized in the lumen. A #3 Mahamed was passed proximally and a subacute and acute appearing thrombus was retrieved. The Mahamed was passed three times until brisk backbleeding was observed. The Mahamed was then passed proximally. Again a substantial amount of acute and subacute appearing thrombus was achieved. Brisk forward bleeding achieved on first pass. Graft then clamped with angled debaky clamps. An 8Fr sheath was then advanced several centimeters into the distal graft under direct visualization. A fistulogram was then performed. There appeared to be >50% stenosis of the distal anastomosis with patent outflow through the axillary and subclavian vein with no central venous stenosis. An 0.035 angled glide wire was then advanced through the sheath and across the lesion. A Dixon 6x40mm balloon was placed at site of lesion and insufflated for about 1 min. Completion fistulogram demonstrated resolution of the distal anastomotic stenosis. The wire and sheath were then removed. The graft was repaired using 5 interrupted 6-0 Prolene sutures. Hemostasis was obtained. There was a good thrill present in the graft. The wound was closed with 3-0 running subcutaneous Vicryl sutures. The skin was closed with 4-0 Monocryl running sutures. Dermabond was placed over the wound. The patient left the angiogram suite in good condition and tolerated the procedure well. A total of 1.1 min of fluoroscopy time and 30mGy were used Dr. Arevalo was present and scrubbed for the entire procedure. I attest to the content of the Intraoperative Record and any orders documented therein. Any exceptions are noted below. Supervising Physician Co-Signing Physician Notes Kalpesh Arevalo MD
--- NOTE | 2022-10-27 10:33 | Hospitalist Progress Note ---
Date of Service October 27, 2022 Assessment & Plan (1) ESRD (end stage renal disease) on dialysis: Plan: - On dialysis T//Mon however could not have yesterday's session as there was difficulty accessing her AV graft. - [facility], and appreciate their assistance with patient - Patient still makes urine. - Initially patient was NPO for possible thrombectomy. Vascular was not available so the lodge attendant was able to successfully place a central venous access. 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 -10/26/2022 U/S venous duplex shows nonocclusive deep vein thrombosis in the left internal jugular vein - Having dialysis today via temporary catheter - Renal dialysis/DM2 diet for now, NPO at midnight. - BMP daily. (2) AV graft thrombosis: Plan: - Await U/S venous duplex - Vascular consulted and plan to evaluate patient in the AM - NPO after midnight (3) Hyperkalemia: Plan: - Received calcium gluconate, insulin with dextrose, Lokelma, and Lasix in ED. -On presentation potassium was 6.6 - Gave another IV insulin 10Units with [id number]% 50ml - Gave another dose of Lokelma 2 hours after AM medications - On telemetry unit. Continue cardiac monitoring - (4) IDDM (insulin dependent diabetes mellitus): Plan: - Continue Lantus 10 units HS with SSI. - BSG 281 on admit. - Renal dialysis/DM2 diet fluid restriction of less than 1500 (5) Chronic anemia: Plan: - Hgb 7.9, slightly lower than recent baseline of 9 but somewhat at baseline for her over past 6 months. - No s/s of acute bleeding. Monitor on AM labs. (6) Paroxysmal atrial fibrillation: Plan: - History of, continue amiodarone. Is not on AC due to acute bleeding while on it previously requiring 5 units RBC transfusion. - Continue on cardiac monitoring (7) Hypothyroidism: Plan: - Continue levothyroxine. (8) Morbid obesity with BMI of 50.0-59.9, adult: Plan: - Renal, carb consistent diet with fluid restriction - Encouraged continued therapy Plan - Admitted to PCU. - SCDs for VTE ppx. - DNR/DNI. Admission and Anticipated Discharge Date Admission Date: October 25, 2022 Subjective pt was in the OR most of the day, no complaints Physical Exam Physical Exam: awake and alert, no acute issues Results & Data Results & Data ([facility]) Vital Signs (Past 12 Hours) Vital Signs Temp Pulse Pulse Pulse Pulse Resp BP 10/27/22 10:10 97.9 F 68 19 117/50 L 10/27/22 10:20 97.9 F 69 16 116/43 L 10/27/22 10:00 71 22 112/44 L 10/27/22 09:54 98.4 F 76 76 13 115/41 L 10/27/22 07:45 69 10/27/22 07:26 98.6 F 69 20 107/54 L 10/27/22 03:54 98.8 F 99 H 18 134/89 10/26/22 23:50 70 10/26/22 23:00 97.3 F L 67 18 96/51 L Pulse Ox O2 Del Method O2 Flow Rate 10/27/22 10:10 93 Nasal Cannula 3 10/27/22 10:20 94 Nasal Cannula 3 10/27/22 10:00 95 Oxymask 3 10/27/22 09:54 96 Oxymask 5 10/27/22 07:45 10/27/22 07:26 93 Nasal Cannula 3 10/27/22 03:54 98 Nasal Cannula 10/26/22 23:50 10/26/22 23:00 95 Nasal Cannula PG Care Time/CCT Total # of Minutes Spent Total Time Spent with Patient: Total time spent is greater than 50% in coordination of care (as documented) at patient's floor/unit and/or counseling patient: Coding Level of Care Code 16818 SUB INP/OBS CARE 2/35MIN Diagnoses ESRD (end stage renal disease) on dialysis N18.6; Z99.2 AV graft thrombosis T82.868A Hyperkalemia E87.5 IDDM (insulin dependent diabetes mellitus) Chronic anemia D64.9 Paroxysmal atrial fibrillation I48.0 Hypothyroidism E03.9 Morbid obesity with BMI of 50.0-59.9, adult E66.01; Z68.43
--- NOTE | 2022-10-27 11:18 | Anesthesiology Progress Note ---
Date of Service October 27, 2022 Anesthesia Post Procedure Vital Signs Vital Signs: Temp Pulse Pulse Pulse Pulse Resp BP 10/27/22 10:49 67 109/50 L 10/27/22 10:39 36.5 C 70 10/27/22 10:10 36.6 C 68 19 10/27/22 10:20 36.6 C 69 16 10/27/22 10:00 71 22 10/27/22 09:54 36.9 C 76 76 13 10/27/22 07:45 69 10/27/22 07:26 37 C 69 20 10/27/22 03:54 37.1 C 99 H 18 10/26/22 23:50 70 10/26/22 23:00 36.3 C L 67 18 10/26/22 20:59 10/26/22 20:00 37.1 C 68 18 10/26/22 17:51 37.4 C 76 18 10/26/22 17:23 36.9 C 62 10/26/22 16:59 63 10/26/22 17:00 62 92/46 L 10/26/22 16:55 103 H 10/26/22 16:30 61 106/43 L 10/26/22 16:00 61 107/50 L 10/26/22 15:30 62 98/46 L 10/26/22 15:00 70 126/50 L 10/26/22 14:45 93 H 116/66 10/26/22 14:15 71 108/65 10/26/22 14:05 36.6 C 65 BP Pulse Ox O2 Del Method O2 Flow Rate 10/27/22 10:49 10/27/22 10:39 10/27/22 10:10 117/50 L 93 Nasal Cannula 3 10/27/22 10:20 116/43 L 94 Nasal Cannula 3 10/27/22 10:00 112/44 L 95 Oxymask 3 10/27/22 09:54 115/41 L 96 Oxymask 5 10/27/22 07:45 10/27/22 07:26 107/54 L 93 Nasal Cannula 3 10/27/22 03:54 134/89 98 Nasal Cannula 10/26/22 23:50 10/26/22 23:00 96/51 L 95 Nasal Cannula 10/26/22 20:59 Nasal Cannula 4 10/26/22 20:00 117/69 93 Nasal Cannula 10/26/22 17:51 96/70 L 96 Nasal Cannula 4 10/26/22 17:23 90/54 L 10/26/22 16:59 10/26/22 17:00 10/26/22 16:55 10/26/22 16:30 10/26/22 16:00 10/26/22 15:30 10/26/22 15:00 10/26/22 14:45 10/26/22 14:15 10/26/22 14:05 Transfer of Care Handoff Completed per policy Notes Mental Status: alert / awake / arousable Patient Amnestic to Procedure: Yes Nausea / Vomiting: adequately controlled Pain: adequately controlled Airway Patency, RR, SpO2: stable & adequate BP & HR: stable & adequate Hydration State: stable & adequate Anesthetic Complications: no major complications apparent
--- NOTE | 2022-10-27 11:57 | Dialysis Progress Note ---
Date of Service October 27, 2022 Assessment & Plan (1) AV graft thrombosis: Plan: s/p thrombectomy today >> t/b present now but weak still; await guidance from vascular about recannulating but likely soon (2) ESRD (end stage renal disease) on dialysis: Plan: for HD today ; plan tx again tomorrow and hopefully to access AVG at that time (3) DVT (deep venous thrombosis): Plan: nonocclusive L IJ >> not on AC as OP; likely chronic; defer to primary service for next steps Admission and Anticipated Discharge Date Admission Date: October 25, 2022 Subjective seen on dialysis just after thrombectomy; still recovering from anesthesia > ROS unreliable; imaging yesterday w/ nonocclusive R IJ DVT Review of Systems Review of Systems: Unobtainable due to reduced consciousness Physical Exam Constitutional: well developed, + morbidly obese, cooperative and + lethargic; no acute distress Eyes: EOM intact bilaterally ENMT: Ears: no external ear abnormality Nose: no external nose abnormality Mouth: + dry oral mucous membranes Neck: no nuchal rigidity Respiratory: normal respiratory effort Auscultation: + diminished lung sounds (anterior exam); no wheezes Cardiovascular: Rate/Rhythm: regular rate and regular rhythm Extremities: + edema (trace distal) and + AV fistula (AVG RUE proximal no t/b; not red/warm/tender) Gastrointestinal (Abdomen): Inspection/Auscultation: normal bowel sounds Percussion/Palpation: abdomen soft; abdomen nontender Musculoskeletal: Extremities: strength 5/5 throughout Skin: no rashes, warm and dry Psychiatric: Orientation: oriented to person; + not oriented to place and + not oriented to time Speech: + abnormal rate/rhythm/volume of speech Results & Data ([facility]) Vital Signs (Past 12 Hours) Vital Signs Temp Pulse Pulse Pulse Pulse Resp BP 10/27/22 11:00 67 121/61 10/27/22 10:49 67 109/50 L 10/27/22 10:39 36.5 C 70 10/27/22 10:10 36.6 C 68 19 10/27/22 10:20 36.6 C 69 16 10/27/22 10:00 71 22 10/27/22 09:54 36.9 C 76 76 13 10/27/22 07:45 69 10/27/22 07:26 37 C 69 20 10/27/22 03:54 37.1 C 99 H 18 10/26/22 23:50 70 BP Pulse Ox O2 Del Method O2 Flow Rate 10/27/22 11:00 10/27/22 10:49 10/27/22 10:39 10/27/22 10:10 117/50 L 93 Nasal Cannula 3 10/27/22 10:20 116/43 L 94 Nasal Cannula 3 10/27/22 10:00 112/44 L 95 Oxymask 3 10/27/22 09:54 115/41 L 96 Oxymask 5 10/27/22 07:45 10/27/22 07:26 107/54 L 93 Nasal Cannula 3 10/27/22 03:54 134/89 98 Nasal Cannula 10/26/22 23:50 Laboratory Results 10/27/22 05:34 10/27/22 05:34
[2022-10-27] MEDS ORDERED: oxyCODONE/ACETAMINOPHEN 5mg/325mg TAB PO PRN (14:53)
[2022-10-27] MEDS: INSULIN ASPART PER UNIT SC SCH ×4 (14:54→22:54)
[2022-10-27] MEDS: CALCIUM ACETATE 667 MG CAP/TAB PO SCH ×3 (14:55→18:22)
[2022-10-27] MEDS: PANTOprazole 40 MG TAB PO SCH (15:03)
[2022-10-27] MEDS: NEPHROCAPS PO SCH (15:03)
[2022-10-27] MEDS: AMIODARONE 200 MG TAB PO SCH (15:03)
[2022-10-27] MEDS: EZETIMIBE 10 MG TABLET PO SCH (15:04)
[2022-10-27] MEDS: ATORVASTATIN 20 MG TAB PO SCH (15:04)
--- NOTE | 2022-10-27 17:30 | Ultrasound Report ---
US hemodialysis access CLINICAL HISTORY: MALFUNCTION LEFT ARM ACCESS. Evaluate right upper extremity fistula. COMPARISON STUDY: Ultrasound hemodialysis access 03/17/2022. FINDINGS: There is complete thrombosis of the right upper extremity graft. Peak systolic velocities w ithin the brachial artery measure up to 135 cm/s at the arterial anastomosis. This has improved. The visualized right basilic vein is compressible and patent. No evidence for a fistula or graft within t he left upper extremity. IMPRESSION: 1. There is complete thrombosis of the right upper extremity graft. 2. No fistula or graft identified within the left upper extremity. ACT 112: Negative or not required by law. Electronically signed by: Luis Franco M.D. 10/27/2022 5:29 PM
[2022-10-27] MEDS: LANTUS PER UNIT CHARGE SQ SCH (22:55)
[2022-10-28 06:25] LABS: Hematocrit (blood only) 22.9 % (34.1-44.9); Hemoglobin 7.1 g/dl (12.0-16.0); Mean Corpuscular Hemoglobin 34.6 pg (25.0-34.0); Mean Corpuscular Volume 111.7 fL (80.0-100.0); Mean Platelet Volume 11.6 fL (9.4-12.3); Nucleated RBC % (auto) 1.3 %; Platelet Count 105 K/uL (130-400); RDW Coefficient of Variation 18.1 % (11.5-14.5); Red Blood Count 2.05 M/uL (3.93-5.22); White Blood Count 4.47 K/ul (4.8-10.8)
[2022-10-28 06:48] LABS: Nucleated RBC # (auto) 0.06 K/uL (0-0)
[2022-10-28] MEDS: LEVOTHYROXINE SODIUM 75 MCG TABLET PO SCH (06:49)
[2022-10-28] MEDS ORDERED: EPOETIN ALFA 20,000 UNITS/ML VIAL IV ONE (07:00)
[2022-10-28] MEDS ORDERED: SODIUM CHLORIDE 0.9% 1000ML 1,000 ML IV PRN (07:00)
[2022-10-28] MEDS ORDERED: HEPARIN SOD (PORCINE) 1000 UNIT/ML IV ONE (07:00)
[2022-10-28 07:36] LABS: Creatinine Clr Calc Pharmacy 14.7 ml/min; Est GFR (African American) 9.7 ml/min; Est GFR (Non-African American) 8.3 ml/min
[2022-10-28 07:37] LABS: BUN Creatinine Ratio 6.2 (10-20); Calcium 7.6 mg/dl (8.5-10.1); Potassium 4.1 mmol/L (3.5-5.1)
[2022-10-28] MEDS: INSULIN ASPART PER UNIT SC SCH ×4 (08:42→20:19)
[2022-10-28] MEDS: SODIUM ZIRCONIUM CYCLOSILICATE 10 GM PACKET PO SCH (08:43)
[2022-10-28] MEDS: FUROSEMIDE 80 MG TAB PO SCH (08:43)
[2022-10-28] MEDS: CALCIUM ACETATE 667 MG CAP/TAB PO SCH ×2 (08:43→13:47)
--- NOTE | 2022-10-28 09:59 | Surgery Progress Note ---
Date of Service October 28, 2022 Assessment & Plan (1) Arteriovenous fistula thrombosis: Plan: Pt underwent thrombectomy of RUE AV graft yesterday, however, it appears to have rethrombosed. Will discuss next steps with Dr Arevalo later today. Advised pt she will likely need either another thrombectomy or a permcath on Monday. Pt understands. Admission and Anticipated Discharge Date Admission Date: October 25, 2022 Subjective 62 yo f POD #1 after open thrombectomy of RUE AV graft, seen in f/u today. Pt currently undergoing HD through R IJ temporary line. Her RUE AV graft has no thrill today. Review of Systems Review of Systems: All systems reviewed & are unremarkable except as noted in HPI & below Physical Exam Constitutional: well developed and well nourished Cardiovascular: Extremities: + AV fistula (RUE AV graft is firm, without thrill or bruit noted. incision C/D/I.) Psychiatric: Orientation: alert and oriented x 3 Results & Data ([facility]) Vital Signs (Past 12 Hours) Vital Signs Temp Pulse Pulse Pulse Resp BP BP 10/28/22 09:30 82 123/82 10/28/22 09:22 84 117/53 L 10/28/22 09:13 37.1 C 86 10/28/22 08:00 10/28/22 08:09 36.7 C 74 17 111/62 10/27/22 23:30 10/27/22 21:58 82 10/28/22 03:49 36.6 C 75 18 101/46 L 10/27/22 23:26 36.5 C 79 18 107/61 Pulse Ox O2 Del Method O2 Flow Rate 10/28/22 09:30 10/28/22 09:22 10/28/22 09:13 10/28/22 08:00 Nasal Cannula 2 10/28/22 08:09 93 Nasal Cannula 2 10/27/22 23:30 Nasal Cannula 2 10/27/22 21:58 10/28/22 03:49 90 Nasal Cannula 10/27/22 23:26 89 L Nasal Cannula
[2022-10-28] MEDS: AMIODARONE 200 MG TAB PO SCH (13:45)
[2022-10-28] MEDS: EZETIMIBE 10 MG TABLET PO SCH (13:46)
[2022-10-28] MEDS: ATORVASTATIN 20 MG TAB PO SCH (13:46)
[2022-10-28] MEDS: PANTOprazole 40 MG TAB PO SCH (13:46)
[2022-10-28] MEDS: NEPHROCAPS PO SCH (13:47)
--- NOTE | 2022-10-28 14:04 | Nephrology Progress Note ---
Date of Service October 28, 2022 Assessment & Plan (1) AV graft thrombosis: Plan: s/p thrombectomy 10/27 >> t/b gone w/in 24 hrs of procedure; d/w Dr Arvealo > for TDC/further eval on 09/30 (2) ESRD (end stage renal disease) on dialysis: Plan: for HD today ; next tx on 10/31 or as needs dictate (3) DVT (deep venous thrombosis): Plan: nonocclusive L IJ >> not on AC as OP; likely chronic; defer to primary service for next steps; low threshold for heme admission (4) Acute on chronic anemia: Plan: hgb down trending despite uf w/ HD which should cause hgb to at least stabilize; on max dose DAVION w/ tx -per hospitalist who is considering pRBC Admission and Anticipated Discharge Date Admission Date: October 25, 2022 Subjective AVG w/o t/b this am and on; pt despondent re AVG; denies sob, n/v, edema, bleeding. seen on early AM rounds Review of Systems Review of Systems: All systems reviewed & are unremarkable except as noted in Subjective Physical Exam Constitutional: well developed, well nourished, + morbidly obese and cooperative; no acute distress Eyes: EOM intact bilaterally ENMT: Ears: no external ear abnormality Nose: no external nose abnormality Mouth: + dry oral mucous membranes Neck: no nuchal rigidity Respiratory: normal respiratory effort Auscultation: + diminished lung sounds (anterior exam); no wheezes Cardiovascular: Rate/Rhythm: regular rate and regular rhythm Extremities: + AV fistula (AVG RUE proximal no t/b; not red/warm/tender); no edema Gastrointestinal (Abdomen): Inspection/Auscultation: normal bowel sounds Percussion/Palpation: abdomen soft; abdomen nontender Musculoskeletal: Extremities: strength 5/5 throughout Skin: no rashes, warm and dry Psychiatric: Orientation: oriented x 3 and oriented to person; + not oriented to place and + not oriented to time Speech: + abnormal rate/rhythm/volume of speech Results & Data ([facility]) Vital Signs (Past 12 Hours) Vital Signs Temp Pulse Pulse Pulse Resp BP BP 10/28/22 13:24 36.9 C 90 119/56 L 10/28/22 13:00 91 H 100/29 L 10/28/22 12:30 92 H 87/49 L 10/28/22 12:00 114 H 102/34 L 10/28/22 11:30 88 97/53 L 10/28/22 11:05 80 115/55 L 10/28/22 11:00 101 H 88/61 L 10/28/22 10:30 84 107/50 L 10/28/22 10:00 80 123/55 L 10/28/22 09:30 82 123/82 10/28/22 09:22 84 117/53 L 10/28/22 09:13 37.1 C 86 10/28/22 08:00 10/28/22 08:09 36.7 C 74 17 111/62 10/28/22 03:49 36.6 C 75 18 101/46 L Pulse Ox O2 Del Method O2 Flow Rate 10/28/22 13:24 10/28/22 13:00 10/28/22 12:30 10/28/22 12:00 10/28/22 11:30 10/28/22 11:05 10/28/22 11:00 10/28/22 10:30 10/28/22 10:00 10/28/22 09:30 10/28/22 09:22 10/28/22 09:13 10/28/22 08:00 Nasal Cannula 2 10/28/22 08:09 93 Nasal Cannula 2 10/28/22 03:49 90 Nasal Cannula Laboratory Results 10/28/22 05:46 10/28/22 05:46
[2022-10-28] MEDS ORDERED: SODIUM CHLORIDE 0.9% 250 ML IV PRN (14:38)
--- NOTE | 2022-10-28 14:48 | Hospitalist Progress Note ---
Date of Service October 28, 2022 Assessment & Plan (1) ESRD (end stage renal disease) on dialysis: Plan: - On dialysis T/TH/Sat however could not have session on admission due to difficulty accessing her AV graft - [facility] nephrology consulted, and appreciate their assistance with patient - Patient still makes urine. 10/27/2022 status post AV fistula thrombectomy. While waiting for the thrombectomy are cash analyst was able to successfully place a central venous access. 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 -10/26/2022 U/S venous duplex shows nonocclusive deep vein thrombosis in the left internal jugular vein -Post thrombectomy there were some challenges in dialysis flow discussion as between myself and nephrology feel if flow is an issue patient may need a tunneled catheter placed - (2) AV graft thrombosis: Plan: - AV graft thrombectomy on 10/27/2022 (3) Hyperkalemia: Plan: - Acute issue subsequently resolved after treatment received calcium gluconate, insulin with dextrose, Lokelma, and Lasix in ED. -On presentation potassium was 6.6 - - (4) IDDM (insulin dependent diabetes mellitus): Plan: - Chronic stable insulin requiring diabetes continue Lantus 10 units HS with SSI. - BSG 281 on admit. (5) Chronic anemia: Plan: - Chronic and unstable Hemoglobin 7.1 transfusion consent written for will be performed today. Patient previously had B12 checked and folate checked it was replete. (6) Paroxysmal atrial fibrillation: Plan: - Chronic and stable while on amiodarone. Is not on AC due to acute bleeding while on it previously requiring 5 units RBC transfusion. - Continue on cardiac monitoring (7) Hypothyroidism: Plan: - Chronic and stable continue levothyroxine. (8) Morbid obesity with BMI of 50.0-59.9, adult: Plan: - Plan - - SCDs for VTE ppx. - DNR/DNI. Admission and Anticipated Discharge Date Admission Date: October 25, 2022 Subjective Patient was seen on dialysis. She was fatigued but had no other complaints or problems. She is able to sign consent for transfusion Physical Exam Physical Exam: In the dialysis unit she is not short of breath her lungs are clear listened to anteriorly and laterally her cardiac exam was regular and distant with no murmurs heard however the vehicle operator technician says she was having bouts of tachycardia and likely may be flipping out of atrial fibrillation but was currently not on the monitor. She will be remanded to the monitor when she returns to the cardiac floor Results & Data Results & Data ([facility]) Vital Signs (Past 12 Hours) Vital Signs Temp Pulse Pulse Pulse Resp BP BP 10/28/22 13:24 98.4 F 90 119/56 L 10/28/22 13:00 91 H 100/29 L 10/28/22 12:30 92 H 87/49 L 10/28/22 12:00 114 H 102/34 L 10/28/22 11:30 88 97/53 L 10/28/22 11:05 80 115/55 L 10/28/22 11:00 101 H 88/61 L 10/28/22 10:30 84 107/50 L 10/28/22 10:00 80 123/55 L 10/28/22 09:30 82 123/82 10/28/22 09:22 84 117/53 L 10/28/22 09:13 98.8 F 86 10/28/22 08:00 10/28/22 08:09 98.1 F 74 17 111/62 10/28/22 03:49 97.9 F 75 18 101/46 L Pulse Ox O2 Del Method O2 Flow Rate 10/28/22 13:24 10/28/22 13:00 10/28/22 12:30 10/28/22 12:00 10/28/22 11:30 10/28/22 11:05 10/28/22 11:00 10/28/22 10:30 10/28/22 10:00 10/28/22 09:30 10/28/22 09:22 10/28/22 09:13 10/28/22 08:00 Nasal Cannula 2 10/28/22 08:09 93 Nasal Cannula 2 10/28/22 03:49 90 Nasal Cannula Diagnostic Findings CBC was reviewed and found that her anemia has worsened, it is macrocytic Her chemistry panel was reviewed founding her creatinine to be 5.17 BUN of 32 potassium and bicarb are in good control Her calcium level 7.6 Discussed and consented for transfusion due to symptomatic anemia hemoglobin less than 8 PG Care Time/CCT Total # of Minutes Spent Total Time Spent with Patient: Total time spent is greater than 50% in coordination of care (as documented) at patient's floor/unit and/or counseling patient: Coding Level of Care Code 75552 SUB INP/OBS CARE MIN Diagnoses ESRD (end stage renal disease) on dialysis N18.6; Z99.2 AV graft thrombosis T82.868A Hyperkalemia E87.5 IDDM (insulin dependent diabetes mellitus) Chronic anemia D64.9 Paroxysmal atrial fibrillation I48.0 Hypothyroidism E03.9 Morbid obesity with BMI of 50.0-59.9, adult E66.01; Z68.43
[2022-10-28] MEDS: LANTUS PER UNIT CHARGE SQ SCH (20:19)
[2022-10-28 22:24] LABS: Hematocrit (blood only) 27.1 % (34.1-44.9); Hemoglobin 8.5 g/dl (12.0-16.0)
[2022-10-28] MEDS: ACETAMINOPHEN 325 MG TAB PO PRN (23:38)
[2022-10-29] MEDS: LEVOTHYROXINE SODIUM 75 MCG TABLET PO SCH (06:02)
--- NOTE | 2022-10-29 08:08 | Hospitalist Progress Note ---
Date of Service October 29, 2022 Assessment & Plan (1) ESRD (end stage renal disease) on dialysis: Plan: - On dialysis T/TH/Sat however could not have session on admission due to difficulty accessing her AV graft - [facility] nephrology consulted, and appreciate their assistance with patient - Patient still makes urine. 10/27/2022 status post AV fistula thrombectomy. While waiting for the thrombectomy are site director was able to successfully place a central venous access. 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 -10/26/2022 U/S venous duplex shows nonocclusive deep vein thrombosis in the left internal jugular vein -Post thrombectomy there were some challenges in dialysis flow discussion as between myself and nephrology feel if flow is an issue patient may need a tunneled catheter placed - (2) AV graft thrombosis: Plan: - AV graft thrombectomy on 10/27/2022 Given the graft thrombus in the jugular thrombus and atrial fibrillation risk consideration of anticoagulation will be undertaken. To this and we will institute heparin therapy at this time given her jugular venous thrombosis. This will allow us to control her anticoagulation while we continue discussion of appropriate use of an anticoagulant for long-term use in this patient it may eventually be a transition to warfarin (3) Hyperkalemia: Plan: - Acute issue subsequently resolved after treatment received calcium gluconate, insulin with dextrose, Lokelma, and Lasix in ED. -On presentation potassium was 6.6 - - (4) IDDM (insulin dependent diabetes mellitus): Plan: - Chronic stable insulin requiring diabetes continue Lantus 10 units HS with SSI. - BSG 281 on admit. (5) Chronic anemia: Plan: - Chronic and unstable Hemoglobin 7.1 transfusion consent written for will be performed today. Patient previously had B12 checked and folate checked it was replete. (6) Paroxysmal atrial fibrillation: Plan: - Chronic and stable while on amiodarone. Is not on AC due to acute bleeding while on it previously requiring 5 units RBC transfusion. - Continue on cardiac monitoring (7) Hypothyroidism: Plan: - Chronic and stable continue levothyroxine. (8) Morbid obesity with BMI of 50.0-59.9, adult: Plan: - Plan - - SCDs for VTE ppx. - DNR/DNI. Admission and Anticipated Discharge Date Admission Date: October 25, 2022 Subjective Patient is good spirits she is stable we discussed anticoagulation and she had significant issues with apixaban. Unfortunately there are not many choices and chronic kidney disease for formal anticoagulation. This discussion arises because of both a jugular venous thrombosis AV fistula thrombosis and a risk of arterial thrombosis given her atrial fibrillation. Patient states she is willing accept the risk of bleeding but does not wish to retry apixaban in any way the other DOAC's do not seem to be indicating end- stage renal disease. We discussed warfarin the patient did not wish to consider this Physical Exam Physical Exam: Patient awake alert appropriate. There is not a thrill in her AV fistula. Her heart is regular her lungs were clear abdomen normal active bowel sounds and soft Results & Data Results & Data ([facility]) Vital Signs (Past 12 Hours) Vital Signs Temp Pulse Resp BP Pulse Ox O2 Del Method O2 Flow Rate 10/29/22 07:51 97.9 F 75 18 139/73 96 Nasal Cannula 2 10/29/22 02:42 98.4 F 77 18 130/61 93 Nasal Cannula 3 10/28/22 22:22 98.6 F 77 16 104/57 L 95 Nasal Cannula 3 PG Care Time/CCT Total # of Minutes Spent Total Time Spent with Patient: Total time spent is greater than 50% in coordination of care (as documented) at patient's floor/unit and/or counseling patient: Coding Level of Care Code 78085 SUB INP/OBS CARE 2/35MIN Diagnoses ESRD (end stage renal disease) on dialysis N18.6; Z99.2 AV graft thrombosis T82.868A Hyperkalemia E87.5 IDDM (insulin dependent diabetes mellitus) Chronic anemia D64.9 Paroxysmal atrial fibrillation I48.0 Hypothyroidism E03.9 Morbid obesity with BMI of 50.0-59.9, adult E66.01; Z68.43
[2022-10-29] MEDS: AMIODARONE 200 MG TAB PO SCH (08:40)
[2022-10-29] MEDS: CALCIUM ACETATE 667 MG CAP/TAB PO SCH ×3 (08:41→17:55)
[2022-10-29] MEDS: ATORVASTATIN 20 MG TAB PO SCH (08:41)
[2022-10-29] MEDS: NEPHROCAPS PO SCH (08:41)
[2022-10-29] MEDS: PANTOprazole 40 MG TAB PO SCH (08:42)
[2022-10-29] MEDS: EZETIMIBE 10 MG TABLET PO SCH (08:42)
[2022-10-29] MEDS: INSULIN ASPART PER UNIT SC SCH ×4 (08:45→21:03)
[2022-10-29] MEDS ORDERED: Heparin IV Adult Wt-Based Standard *NO* Bolus Protocol IV STA (17:04)
[2022-10-29] MEDS: HEPARIN SODIUM/DEXTROSE 25,000 UNITS/500 ML BAG IV SCH (18:31)
[2022-10-29] MEDS: LANTUS PER UNIT CHARGE SQ SCH (21:04)
[2022-10-30 01:20] LABS: Hematocrit (blood only) 27.8 % (34.1-44.9); Hemoglobin 8.8 g/dl (12.0-16.0); Mean Corpuscular Hemoglobin 34.2 pg (25.0-34.0); Mean Corpuscular Hgb Conc 31.7 g/dL (32.0-36.0); Mean Corpuscular Volume 108.2 fL (80.0-100.0); Mean Platelet Volume 10.1 fL (9.4-12.3); Nucleated RBC # (auto) 0.07 K/uL (0-0); Nucleated RBC % (auto) 1.4 %; Platelet Count 99 K/uL (130-400); RDW Coefficient of Variation 19.6 % (11.5-14.5); RDW Standard Deviation 75.5 fL (36.4-46.3); Red Blood Count 2.57 M/uL (3.93-5.22); White Blood Count 5.06 K/ul (4.8-10.8)
[2022-10-30 01:34] LABS: Partial Thromboplastin Ratio 1.1; Partial Thromboplastin Time 30.6 Seconds (21.0-31.0)
[2022-10-30 01:36] LABS: Calcium 8.1 mg/dl (8.5-10.1); Potassium 3.9 mmol/L (3.5-5.1)
[2022-10-30] MEDS ORDERED: HEPARIN SOD (PORCINE) 1000 UNIT/ML IV ONE (02:00)
[2022-10-30 02:18] LABS: BUN Creatinine Ratio 6.7 (10-20); Creatinine Clr Calc Pharmacy 13.4 ml/min; Est GFR (African American) 8.6 ml/min; Est GFR (Non-African American) 7.4 ml/min
[2022-10-30] MEDS: LEVOTHYROXINE SODIUM 75 MCG TABLET PO SCH (06:04)
[2022-10-30] MEDS: FUROSEMIDE 80 MG TAB PO SCH (08:12)
[2022-10-30] MEDS: PANTOprazole 40 MG TAB PO SCH (08:12)
[2022-10-30] MEDS: SODIUM ZIRCONIUM CYCLOSILICATE 10 GM PACKET PO SCH (08:12)
[2022-10-30] MEDS: NEPHROCAPS PO SCH (08:12)
[2022-10-30] MEDS: AMIODARONE 200 MG TAB PO SCH (08:13)
[2022-10-30] MEDS: EZETIMIBE 10 MG TABLET PO SCH (08:13)
[2022-10-30] MEDS: CALCIUM ACETATE 667 MG CAP/TAB PO SCH ×3 (08:14→17:59)
[2022-10-30] MEDS: ATORVASTATIN 20 MG TAB PO SCH (08:15)
--- NOTE | 2022-10-30 08:52 | Hospitalist Progress Note ---
Date of Service October 30, 2022 Assessment & Plan (1) ESRD (end stage renal disease) on dialysis: Plan: - On dialysis T/TH/Sat however could not have session on admission due to difficulty accessing her AV graft - [facility] nephrology consulted, and appreciate their assistance with patient - Patient still makes urine. 10/27/2022 status post AV fistula thrombectomy. While waiting for the thrombectomy are recoating machine operator was able to successfully place a central venous access. 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 -10/26/2022 U/S venous duplex shows nonocclusive deep vein thrombosis in the left internal jugular vein -Post thrombectomy there were some challenges in dialysis flow discussion as between myself and nephrology feel if flow is an issue patient may need a tunneled catheter placed continues with no thrill to fistulae 10/30/22 - (2) AV graft thrombosis: Plan: - AV graft thrombectomy on 10/27/2022 Given the graft thrombus in the jugular thrombus and atrial fibrillation risk consideration of anticoagulation will be undertaken. To this and we will institute heparin therapy at this time given her jugular venous thrombosis. This will allow us to control her anticoagulation while we continue discussion of appropriate use of an anticoagulant for long-term use in this patient it may eventually be a transition to warfarin unkown and potentially high risk to anticoagulation at this time (3) Hyperkalemia: Plan: - Acute issue subsequently resolved after treatment received calcium gluconate, insulin with dextrose, Lokelma, and Lasix in ED. -On presentation potassium was 6.6 - - (4) IDDM (insulin dependent diabetes mellitus): Plan: - Chronic stable insulin requiring diabetes continue Lantus 10 units HS with SSI. - BSG 281 on admit. (5) Chronic anemia: Plan: - Chronic and unstable Hemoglobin 7.1 transfusion 2 units with rise to 8.8. Patient previously had B12 checked and folate checked it was replete. given epo by nephrology (6) Paroxysmal atrial fibrillation: Plan: - Chronic and stable while on amiodarone. Is now on AC watching for bleeding previously did have issues on eliquis - Continue on cardiac monitoring (7) Hypothyroidism: Plan: - Chronic and stable continue levothyroxine. (8) Morbid obesity with BMI of 50.0-59.9, adult: Plan: - Plan - - SCDs for VTE ppx. - DNR/DNI. Admission and Anticipated Discharge Date Admission Date: October 25, 2022 Subjective pt is awake and alert, we had a long discussion regarding anticoagulation with jugular thrombus, av fistulae thrombosis and afib, pt understands risks, is ok to start heparin and see how if bleeding occurs Physical Exam Physical Exam: Patient awake alert appropriate. There is not a thrill in her AV fistula. Her heart is regular her lungs were clear abdomen normal active bowel sounds and soft Results & Data Results & Data ([facility]) Vital Signs (Past 12 Hours) Vital Signs Temp Pulse Pulse Pulse Resp BP Pulse Ox 10/30/22 08:42 10/30/22 07:00 98.1 F 75 18 146/74 H 96 10/30/22 04:32 97.7 F 95 H 155/80 H 93 10/30/22 01:31 78 10/29/22 23:00 98.4 F 73 144/65 H 94 O2 Del Method O2 Flow Rate 10/30/22 08:42 Nasal Cannula 2 10/30/22 07:00 Nasal Cannula 3 10/30/22 04:32 Nasal Cannula 2 10/30/22 01:31 10/29/22 23:00 Room Air, Nasal Cannula 2 PG Care Time/CCT Total # of Minutes Spent Total Time Spent with Patient: Total time spent is greater than 50% in coordination of care (as documented) at patient's floor/unit and/or counseling patient: Coding Level of Care Code 52412 SUB INP/OBS CARE 3/50MIN Diagnoses ESRD (end stage renal disease) on dialysis N18.6; Z99.2 AV graft thrombosis T82.868A Hyperkalemia E87.5 IDDM (insulin dependent diabetes mellitus) Chronic anemia D64.9 Paroxysmal atrial fibrillation I48.0 Hypothyroidism E03.9 Morbid obesity with BMI of 50.0-59.9, adult E66.01; Z68.43
[2022-10-30] MEDS: INSULIN ASPART PER UNIT SC SCH ×4 (09:39→20:32)
[2022-10-30 09:41] LABS: Partial Thromboplastin Ratio 1.8
[2022-10-30] MEDS: HEPARIN SODIUM/DEXTROSE 25,000 UNITS/500 ML BAG IV SCH (09:41)
--- NOTE | 2022-10-30 09:41 | Nephrology Progress Note ---
Date of Service October 30, 2022 Assessment & Plan (1) AV graft thrombosis: Plan: s/p thrombectomy 10/27 >> t/b gone w/in 24 hrs of procedure; d/w Dr Arevalo > for TDC/further eval on 09/30 (2) ESRD (end stage renal disease) on dialysis: Plan: - next tx on 10/31 (3) DVT (deep venous thrombosis): Plan: nonocclusive L IJ >> not on AC as OP; likely chronic; defer to primary service for next steps; low threshold for heme admission (4) Acute on chronic anemia: Plan: hgb down trending despite uf w/ HD which should cause hgb to at least stabilize; on max dose DAVION w/ tx -per hospitalist Admission and Anticipated Discharge Date Admission Date: October 25, 2022 Subjective Well, no new complains Review of Systems Review of Systems: All systems reviewed & are unremarkable except as noted in HPI & below Results & Data ([facility]) Vital Signs (Past 12 Hours) Vital Signs Temp Pulse Pulse Pulse Resp BP Pulse Ox 10/30/22 08:42 10/30/22 07:00 36.7 C 75 18 146/74 H 96 10/30/22 04:32 36.5 C 95 H 155/80 H 93 10/30/22 01:31 78 10/29/22 23:00 36.9 C 73 144/65 H 94 O2 Del Method O2 Flow Rate 10/30/22 08:42 Nasal Cannula 2 10/30/22 07:00 Nasal Cannula 3 10/30/22 04:32 Nasal Cannula 2 10/30/22 01:31 10/29/22 23:00 Room Air, Nasal Cannula 2 Laboratory Results 10/30/22 01:09 10/30/22 01:09
[2022-10-30 09:44] LABS: Partial Thromboplastin Time 49.9 Seconds (21.0-31.0)
[2022-10-30] MEDS: LANTUS PER UNIT CHARGE SQ SCH (20:32)
[2022-10-31] MEDS: HEPARIN SODIUM/DEXTROSE 25,000 UNITS/500 ML BAG IV SCH ×3 (00:31→17:36)
[2022-10-31] MEDS ORDERED: CLINDAMYCIN/D5W 600 MG/50 ML BAG IV ONE (05:18)
[2022-10-31] MEDS: LEVOTHYROXINE SODIUM 75 MCG TABLET PO SCH (06:09)
[2022-10-31] MEDS ORDERED: SODIUM CHLORIDE 0.9% 1000ML 1,000 ML IV PRN ×2 (07:00→08:23)
[2022-10-31] MEDS: SODIUM ZIRCONIUM CYCLOSILICATE 10 GM PACKET PO SCH (07:40)
[2022-10-31] MEDS: FUROSEMIDE 80 MG TAB PO SCH (07:40)
[2022-10-31 08:13] LABS: Hematocrit (blood only) 26.6 % (34.1-44.9); Hemoglobin 8.6 g/dl (12.0-16.0); Mean Corpuscular Hemoglobin 34.1 pg (25.0-34.0); Mean Corpuscular Hgb Conc 32.3 g/dL (32.0-36.0); Mean Corpuscular Volume 105.6 fL (80.0-100.0); Mean Platelet Volume 10.8 fL (9.4-12.3); Nucleated RBC # (auto) 0.06 K/uL (0-0); Platelet Count 101 K/uL (130-400); RDW Coefficient of Variation 19.2 % (11.5-14.5); RDW Standard Deviation 70.3 fL (36.4-46.3); Red Blood Count 2.52 M/uL (3.93-5.22); White Blood Count 5.87 K/ul (4.8-10.8)
[2022-10-31] MEDS ORDERED: EPOETIN ALFA 10,000 UNITS/ML VIAL IV ONE (08:23)
--- NOTE | 2022-10-31 09:12 | Hospitalist Progress Note ---
Date of Service October 31, 2022 Assessment & Plan (1) ESRD (end stage renal disease) on dialysis: Plan: - On dialysis T//Sat however could not have session on admission due to difficulty accessing her AV graft - [facility] nephrology consulted, and appreciate their assistance with patient - Patient still makes urine. 10/27/2022 status post AV fistula thrombectomy. While waiting for the thrombectomy are outside collector was able to successfully place a central venous access. 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 -10/26/2022 U/S venous duplex shows nonocclusive deep vein thrombosis in the left internal jugular vein -Post thrombectomy there were some challenges in dialysis flow discussion as between myself and nephrology feel if flow is an issue patient may need a tunneled catheter placed continues with no thrill to fistulae 10/30/22 Tunneled dialysis catheter placed 10/31/2022 with dialysis performed through this route on 10/31/2022 - (2) AV graft thrombosis: Plan: - AV graft thrombectomy on 10/27/2022 Given the graft thrombus in the jugular thrombus and atrial fibrillation risk consideration of anticoagulation will be undertaken. To this and we will insti tute heparin therapy at this time given her jugular venous thrombosis. This will allow us to control her anticoagulation while we continue discussion of appropriate use of an anticoagulant for long-term use in this patient it may eventually be a transition to warfarin we will initiate warfarin therapy on 11/01 for her DVT in her neck and fistula. In the 24 hours post procedure will just have heparin therapy we start at low- dose no bolus with titration up per protocol unknown and potentially high risk to anticoagulation at this time (3) Hyperkalemia: Plan: - Acute issue subsequently resolved after treatment received calcium gluconate, insulin with dextrose, Lokelma, and Lasix in ED. -On presentation potassium was 6.6 - - (4) IDDM (insulin dependent diabetes mellitus): Plan: - Chronic stable insulin requiring diabetes continue Lantus 10 units HS with SSI. - BSG 281 on admit. (5) Chronic anemia: Plan: - Chronic and unstable Hemoglobin 7.1 transfusion 2 units with rise to 8.8. Patient previously had B12 checked and folate checked it was replete. given epo by nephrology (6) Paroxysmal atrial fibrillation: Plan: - Chronic and stable while on amiodarone. Is now on AC watching for bleeding previously did have issues on eliquis - Continue on cardiac monitoring Heparin therapy with transition to warfarin this has some risk as patient previous had some bleeding on Eliquis therapy therefore she wishes to avoid this therapy at this time (7) Hypothyroidism: Plan: - Chronic and stable continue levothyroxine. (8) Morbid obesity with BMI of 50.0-59.9, adult: Plan: - Plan - - SCDs for VTE ppx. - DNR/DNI. Admission and Anticipated Discharge Date Admission Date: October 25, 2022 Subjective pt is awake and alert, she was seen after tunnel catheter placement while on dialysis treatment. Once again we had a discussion regarding anticoagulation with jugular thrombus, av fistulae thrombosis and afib, pt again states that she understands risks, continue with heparin drip with eventual likely transition to warfarin therapy Physical Exam Physical Exam: Patient awake alert appropriate appears comfortable Patient is resting comfortably lungs are clear anteriorly heart is regular Results & Data Results & Data ([facility]) Vital Signs (Past 12 Hours) Vital Signs Temp Pulse Pulse Resp BP Pulse Ox O2 Del Method 10/31/22 07:39 97.2 F L 82 18 154/71 H 94 Nasal Cannula 10/31/22 04:30 98.1 F 76 20 117/65 94 Nasal Cannula 10/31/22 00:43 72 10/30/22 23:35 97.9 F 75 20 146/57 H 95 Nasal Cannula O2 Flow Rate 10/31/22 07:39 2 10/31/22 04:30 2 10/31/22 00:43 10/30/22 23:35 2 PG Care Time/CCT Total # of Minutes Spent Total Time Spent with Patient: Total time spent is greater than 50% in coordination of care (as documented) at patient's floor/unit and/or counseling patient: Coding Level of Care Code 74087 SUB INP/OBS CARE 2/35MIN Diagnoses ESRD (end stage renal disease) on dialysis N18.6; Z99.2 AV graft thrombosis T82.868A Hyperkalemia E87.5 IDDM (insulin dependent diabetes mellitus) Chronic anemia D64.9 Paroxysmal atrial fibrillation I48.0 Hypothyroidism E03.9 Morbid obesity with BMI of 50.0-59.9, adult E66.01; Z68.43
[2022-10-31] MEDS: INSULIN ASPART PER UNIT SC SCH ×4 (09:25→21:33)
[2022-10-31 09:27] LABS: Partial Thromboplastin Time 54.7 Seconds (21.0-31.0)
[2022-10-31 09:28] LABS: BUN Creatinine Ratio 6.5 (10-20); Calcium 8.3 mg/dl (8.5-10.1); Creatinine Clr Calc Pharmacy 9.7 ml/min; Est GFR (African American) 5.6 ml/min; Est GFR (Non-African American) 4.8 ml/min; Potassium 3.9 mmol/L (3.5-5.1)
[2022-10-31] MEDS ORDERED: CLINDAMYCIN 600 MG/D5W 50 ML BAG IV ONE (10:29)
[2022-10-31] MEDS ORDERED: HEPARIN SOD (PORCINE) 1000 UNIT/ML IV ONE (10:31)
[2022-10-31] MEDS ORDERED: HEPARIN SOD (PORCINE) 5,000 UNITS/ML VIAL ONE (10:46)
[2022-10-31] MEDS ORDERED: MIDAZOLAM HCL 1 MG/ML 2ML VIAL ONE (10:46)
[2022-10-31] MEDS ORDERED: fentaNYL citrate 100 MCG/2 ML VIAL ONE (10:46)
[2022-10-31] MEDS ORDERED: LIDOCAINE 1% LOCAL 20 ML VIAL ONE (10:47)
--- NOTE | 2022-10-31 10:47 | History & Physical Bridge Note ---
Date of Service October 31, 2022 History & Physical Bridge Note Patient for insertion of permcath today. I have discussed the risks options and benefits of the procedure with the patient. The patient understands the risks options and benefits and agrees to the procedure. I have examined the patient, reviewed the History & Physical and in the interval since the performance of the History & Physical I have noted the following changes of clinical significance: no changes noted
--- NOTE | 2022-10-31 10:48 | Pre Anesthesia Assessment ---
Date of Service October 31, 2022 Pre Sedation Assessment Vital Signs Temp Pulse Pulse Pulse Resp BP Pulse Ox 10/31/22 10:14 37 C 82 20 161/59 H 97 10/31/22 09:41 10/31/22 07:39 36.2 C L 82 18 154/71 H 94 10/31/22 04:30 36.7 C 76 20 117/65 94 10/31/22 00:43 72 10/30/22 23:35 36.6 C 75 20 146/57 H 95 10/30/22 20:38 36.7 C 64 20 130/64 98 10/30/22 19:39 10/30/22 17:07 71 10/30/22 14:58 36.7 C 20 176/71 H 94 10/30/22 12:00 36.7 C 78 18 117/50 L 94 O2 Del Method O2 Flow Rate 10/31/22 10:14 Room Air 10/31/22 09:41 Nasal Cannula 2 10/31/22 07:39 Nasal Cannula 2 10/31/22 04:30 Nasal Cannula 2 10/31/22 00:43 10/30/22 23:35 Nasal Cannula 2 10/30/22 20:38 Nasal Cannula 2 10/30/22 19:39 Nasal Cannula 2 10/30/22 17:07 10/30/22 14:58 Nasal Cannula 2 10/30/22 12:00 Nasal Cannula 2 Cardiovascular RRR, no murmur, no edema Respiratory normal respiratory effort, lungs clear to auscultation Pre-Sedation Airway Assessment Smoking Status: Former smoker Hx Sleep Apnea: No Short, Thick Neck: Yes Thyromental Distance: < 3.5 Finger Breadths Oral Cavity: + WNL Mallampati Class: III ASA: ASA3 NPO Status Date of Last Intake of Fluids: 10/30/22 Time of Last Intake of Fluids: 19:30 Date of Last Intake of Solid Food: 10/30/22 Time of Last Intake of Solid Foods: 19:30 Procedure Planning Contraindications for Sedation: none Current Medications Reviewed: Yes Notes The planned sedation has been discussed with the patient. Informed Consent was obtained. I have identified the patient, determined the appropriateness of sedation and have assessed the patient immediately prior to the procedure. All medicine(s) and interventions are by my order.
--- NOTE | 2022-10-31 11:40 | Post Operative Brief Note ---
Immediate Post Op Note v1 Date of Surgery October 31, 2022 Pre & Post Diagnosis Operation Date: 10/27/22 08:00 Pre-Op Diagnosis: End Stage Renal Disease On Dialysis with arteriovenous graft malfunction Post-Op Diagnosis: End Stage Renal Disease On Dialysis with arteriovenous graft malfunction Operation Date: 10/31/22 10:20 Pre-Op Diagnosis: End Stage Renal Disease Post-Op Diagnosis: End Stage Renal Disease I identified the patient and participated in the time-out.: Yes Procedure Operation Date: 10/27/22 08:00 Actual Procedures p Right Upper Extremity Thrombectomy of Fistula, ERGONOMIC SPECIALIST of Peripheral venous,(Right) - Kalpesh Arevalo MD s Fistulogram (Right) - Kalpesh Arevalo MD Operation Date: 10/31/22 10:20 Actual Procedures p Removal of Temporary Dialysis Catheter, Insertion of Perm Catheter, Right Internal Jugular Approach, Ultrasound Localization of Right Internal Jugular Vein, Fluroscopy for Positioning, Moderate Sedation 1112 1150 - Kalpesh Arevalo MD Surgeon Kalpesh Arevalo MD Distillery Manager Cachorro Razo MD Estimated Blood Loss 10 Findings Consistent with Post-Op Diagnosis Anesthesia Type RN Sedation Complications none Disposition Accompanied Patient To Recovery: No Disposition: Recovery Room
--- NOTE | 2022-10-31 11:50 | Operative Report ---
Post Operative Report Pre & Post Diagnosis Operation Date: 10/27/22 08:00 Pre-Op Diagnosis: End Stage Renal Disease On Dialysis with arteriovenous graft malfunction Post-Op Diagnosis: End Stage Renal Disease On Dialysis with arteriovenous graft malfunction Operation Date: 10/31/22 10:20 Pre-Op Diagnosis: End Stage Renal Disease Post-Op Diagnosis: End Stage Renal Disease I identified the patient and participated in the time-out.: Yes Procedure Operation Date: 10/27/22 08:00 Actual Procedures p Right Upper Extremity Thrombectomy of Fistula, TIE INSPECTOR of Peripheral venous,(Right) - Kalpesh Arevalo MD s Fistulogram (Right) - Kalpesh Arevalo MD Operation Date: 10/31/22 10:20 Actual Procedures p Removal of Temporary Dialysis Catheter, Insertion of Perm Catheter, Right Internal Jugular Approach, Ultrasound Localization of Right Internal Jugular Vein, Fluroscopy for Positioning, Moderate Sedation 1112 -1150 Kalpesh Arevalo MD Surgeon Kalpesh Arevalo MD Wellness Guide Cachorro Razo MD Estimated Blood Loss 10 Findings Consistent with Post-Op Diagnosis Patent right internal jugular vein. Following ultrasound guided micropuncture access, visualization of the J wire within the right IJ, advanced into the SVC and then IVC. Perm catheter advanced over wire into good position. Flushed easily. Specimens None Complications None Indications End stage renal disease with temporary dialysis catheter and need for long-term Perm Cath placement for dialysis Description of Procedure Patient was taken to the angio suite and placed in the supine position. Ultrasound was used to evaluate the right side of the neck. The temporary dialysis line in adequate position without significant thrombus. Right internal jugular vein compressible without thrombus. Temporary dialysis line removed and pressure held. Hemostasis obtained. Next, the right side of the neck and chest wall were prepped and draped in a sterile manner. Local anesthesia was then administered (20cc of lidocaine) to the appropriate areas of the neck and chest wall. Ultrasound was then used to locate the right internal jugular vein. The vein compressed easily, had no filing defects, and was patent. The vein was then punctured under direct ultrasound imaging. A guidewire was then passed centrally under fluoroscopic imaging. A stab wound was then made in the anterior chest wall and a 19 cm permcath was passed from the stab wound on the chest wall to the puncture site on the neck. The puncture site was then dilated till the 14Fr peel away sheath was inserted. The permcath was then inserted through the sheath to a central position in the distal superior vena cava. The peel away sheath was then removed. The catheter was then sutured in place using nylon sutures. The puncture was then closed using a 4-0 Vicryl subcuticular suture. Dermabond was used for a dressing on the puncture site. Both ports a spirated and flushed easily and were then packed with 1.6cc heparin each. A sterile dressing was applied to the catheter. The patient left the angio suite in good condition and tolerated the procedure well. Dr. Arevalo was present and scrubbed for the entire procedure. I attest to the content of the Intraoperative Record and any orders documented therein. Any exceptions are noted below. Supervising Physician Co-Signing Physician Notes Kalpesh Arevalo MD
[2022-10-31] MEDS: CALCIUM ACETATE 667 MG CAP/TAB PO SCH ×3 (13:35→17:34)
[2022-10-31] MEDS: ACETAMINOPHEN 325 MG TAB PO PRN (17:33)
[2022-10-31] MEDS: NEPHROCAPS PO SCH (17:34)
[2022-10-31] MEDS: EZETIMIBE 10 MG TABLET PO SCH (17:34)
[2022-10-31] MEDS: ATORVASTATIN 20 MG TAB PO SCH (17:34)
[2022-10-31] MEDS: PANTOprazole 40 MG TAB PO SCH (17:35)
[2022-10-31] MEDS: AMIODARONE 200 MG TAB PO SCH (17:35)
[2022-10-31] MEDS: LANTUS PER UNIT CHARGE SQ SCH (21:33)
[2022-11-01] MEDS: ACETAMINOPHEN 325 MG TAB PO PRN (02:18)
[2022-11-01] MEDS: LEVOTHYROXINE SODIUM 75 MCG TABLET PO SCH (05:37)
[2022-11-01 06:23] LABS: Hematocrit (blood only) 25.7 % (34.1-44.9); Hemoglobin 8.1 g/dl (12.0-16.0); Mean Corpuscular Hemoglobin 33.6 pg (25.0-34.0); Mean Corpuscular Hgb Conc 31.5 g/dL (32.0-36.0); Mean Corpuscular Volume 106.6 fL (80.0-100.0); Mean Platelet Volume 11.8 fL (9.4-12.3); Nucleated RBC # (auto) 0.07 K/uL (0-0); Nucleated RBC % (auto) 1.1 %; Platelet Count 100 K/uL (130-400); RDW Coefficient of Variation 19.9 % (11.5-14.5); Red Blood Count 2.41 M/uL (3.93-5.22); White Blood Count 6.27 K/ul (4.8-10.8)
[2022-11-01 06:40] LABS: Calcium 8.2 mg/dl (8.5-10.1); Potassium 3.9 mmol/L (3.5-5.1)
[2022-11-01 06:48] LABS: BUN Creatinine Ratio 6.6 (10-20); Creatinine Clr Calc Pharmacy 13.3 ml/min; Est GFR (African American) 8.2 ml/min
[2022-11-01 06:49] LABS: Partial Thromboplastin Ratio 1.9
[2022-11-01 07:03] LABS: Partial Thromboplastin Time 53.5 Seconds (21.0-31.0)
[2022-11-01] MEDS: HEPARIN SODIUM/DEXTROSE 25,000 UNITS/500 ML BAG IV SCH (08:04)
[2022-11-01] MEDS: NEPHROCAPS PO SCH (09:02)
[2022-11-01] MEDS: AMIODARONE 200 MG TAB PO SCH (09:02)
[2022-11-01] MEDS: PANTOprazole 40 MG TAB PO SCH (09:02)
[2022-11-01] MEDS: EZETIMIBE 10 MG TABLET PO SCH (09:02)
[2022-11-01] MEDS: CALCIUM ACETATE 667 MG CAP/TAB PO SCH ×3 (09:02→17:30)
[2022-11-01] MEDS: ATORVASTATIN 20 MG TAB PO SCH (09:03)
[2022-11-01] MEDS: INSULIN ASPART PER UNIT SC SCH ×4 (09:08→20:47)
--- NOTE | 2022-11-01 11:06 | Nephrology Progress Note ---
Date of Service November 01, 2022 Assessment & Plan Admission and Anticipated Discharge Date Admission Date: October 25, 2022 Subjective Assessment & Plan (1) AV graft thrombosis: Plan: s/p thrombectomy 10/27 but does not look like it was able to salvage the AVG. Now has tunnelled HD cath. (2) ESRD (end stage renal disease) on dialysis: Plan: for HD tomorrow. had HD with her New HD Cath yesterday. No issues reported. (3) DVT (deep venous thrombosis): Plan: nonocclusive L IJ >> not on AC as OP; likely chronic; defer to primary service for next steps; low threshold for heme admission Also has h/o Afibb . h/o Severe nose bleed while on eliquis. I convinced her that using eliquis is much more convenient than trying to adjust drug level in dialysis patient blake non adherent ones. She has agreed to be on eliquis. will do renal dose adjusted. next HD tomorrow for 4 hrs and take 3 kilo off. Low hgb and will give High dose DAVION + venofer. Subjective AVG w/o t/b this am and on; pt despondent re AVG; denies sob, n/v, edema, bleeding. seen on early AM rounds Review of Systems Review of Systems: All systems reviewed & are unremarkable except as noted in Subjective Physical Exam Constitutional: well developed, well nourished, + morbidly obese and cooperative; no acute distress Eyes: EOM intact bilaterally ENMT: Ears: no external ear abnormality Nose: no external nose abnormality Mouth: + dry oral mucous membranes Neck: no nuchal rigidity Respiratory: normal respiratory effort Auscultation: + diminished lung sounds (anterior exam); no wheezes Cardiovascular: Rate/Rhythm: regular rate and regular rhythm Extremities: + AV fistula (AVG RUE proximal no t/b; not red/warm/tender); no edema Gastrointestinal (Abdomen): Inspection/Auscultation: normal bowel sounds Percussion/Palpation: abdomen soft; abdomen nontender Musculoskeletal: Extremities: edema 2+ Skin: no rashes, warm and dry Psychiatric: Orientation: oriented x 3 and oriented to person; + not oriented to place and + not oriented to time Speech: + abnormal rate/rhythm/volume of speech Results & Data ([facility]) Vital Signs (Past 12 Hours) Vital Signs Temp Pulse Resp BP Pulse Ox O2 Del Method O2 Flow Rate 11/01/22 08:24 36.2 C L 75 20 129/65 95 Nasal Cannula 2 11/01/22 03:15 36.6 C 89 18 128/89 95 Nasal Cannula 2 10/31/22 23:50 36.7 C 84 20 107/68 97 Nasal Cannula 4
--- NOTE | 2022-11-01 17:57 | Hospitalist Progress Note ---
Date of Service November 01, 2022 Assessment & Plan (1) ESRD (end stage renal disease) on dialysis: Plan: - On dialysis T//Sat however could not have session on admission due to difficulty accessing her AV graft [facility], and appreciate their assistance with patient - Patient still makes urine. 10/27/2022 status post AV fistula thrombectomy. While waiting for the thrombectomy are bacon skinner was able to successfully place a central venous access. 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 -10/26/2022 U/S venous duplex shows nonocclusive deep vein thrombosis in the left internal jugular vein -Post thrombectomy there were some challenges in dialysis flow discussion as between myself and nephrology feel if flow is an issue patient may need a tunneled catheter placed continues with no thrill to fistulae 10/30/22 Tunneled dialysis catheter placed 10/31/2022 with dialysis performed through this route on 10/31/2022 patient is now more on a Monday routine will have to transition to home - (2) AV graft thrombosis: Plan: - AV graft thrombectomy on 10/27/2022 Given the graft thrombus in the jugular thrombus and atrial fibrillation risk consideration of anticoagulation will be undertaken. To this and we will institute heparin therapy at this time given her jugular venous thrombosis. This will allow us to control her anticoagulation while we continue discussion of appropriate use of an anticoagulant for long-term use in this patient it may eventually be a transition to warfarin we will initiate warfarin therapy on 11/01 for her DVT in her neck and fistula. After discussion with nephrology patient is agreement to do low-dose Eliquis therapy at this time heparin is discontinued Eliquis started 2.5 twice daily. This is an assumed risk as it is not formal full anticoagulation but yet appropriate for her dialysis adjustment unknown and potentially high risk to anticoagulation at this time (3) Hyperkalemia: Plan: - Acute issue subsequently resolved after treatment received calcium gluconate, insulin with dextrose, Lokelma, and Lasix in ED. -On presentation potassium was 6.6 - - (4) IDDM (insulin dependent diabetes mellitus): Plan: - Chronic stable insulin requiring diabetes continue Lantus 10 units HS with SSI. - BSG 281 on admit. (5) Chronic anemia: Plan: - Chronic and unstable Hemoglobin 7.1 transfusion 2 units with rise to 8.8. Not currently on anticoagulation or recent procedures will follow for worsening anemia Patient previously had B12 checked and folate checked it was replete. given epo by nephrology (6) Paroxysmal atrial fibrillation: Plan: - Chronic and stable while on amiodarone. Is now on AC watching for bleeding previously did have issues in the past while on eliquis - Continue on cardiac monitoring (7) Hypothyroidism: Plan: - Chronic and stable continue levothyroxine. (8) Morbid obesity with BMI of 50.0-59.9, adult: Plan: - Admission and Anticipated Discharge Date Admission Date: October 25, 2022 Subjective Patient awake and alert she is doing well no signs of bleeding Tunnel catheter site is not significantly tender Physical Exam Physical Exam: Awake alert appropriate cardiac exam is distant lungs are clear Results & Data Results & Data ([facility]) Vital Signs (Past 12 Hours) Vital Signs Temp Pulse Pulse Resp BP Pulse Ox O2 Del Method 11/01/22 16:21 68 11/01/22 16:16 97.9 F 80 20 126/64 97 Nasal Cannula 11/01/22 08:15 Nasal Cannula 11/01/22 11:28 97.5 F L 82 20 150/53 H 96 Nasal Cannula 11/01/22 08:24 97.2 F L 75 20 129/65 95 Nasal Cannula O2 Flow Rate 11/01/22 16:21 11/01/22 16:16 11/01/22 08:15 2 11/01/22 11:28 2 11/01/22 08:24 2 Diagnostic Findings Review of CBC shows anemia of 8.1 this is acute blood loss anemia in the face of also anemia of chronic disease stable Chemistry labs reviewed showed persistent end-stage renal disease normal potassium and bicarbonate PG Care Time/CCT Total # of Minutes Spent Total Time Spent with Patient: Total time spent is greater than 50% in coordination of care (as documented) at patient's floor/unit and/or counseling patient: Coding Level of Care Code 61955 SUB INP/OBS CARE 3/50MIN Diagnoses ESRD (end stage renal disease) on dialysis N18.6; Z99.2 AV graft thrombosis T82.868A Hyperkalemia E87.5 IDDM (insulin dependent diabetes mellitus) Chronic anemia D64.9 Paroxysmal atrial fibrillation I48.0 Hypothyroidism E03.9 Morbid obesity with BMI of 50.0-59.9, adult E66.01; Z68.43
[2022-11-01] MEDS ORDERED: HEPARIN STOP ORDER ONE (20:30)
[2022-11-01] MEDS: APIXABAN 2.5 MG TAB PO SCH (20:42)
[2022-11-01] MEDS: LANTUS PER UNIT CHARGE SQ SCH (20:48)
[2022-11-02] MEDS: LEVOTHYROXINE SODIUM 75 MCG TABLET PO SCH (06:19)
[2022-11-02] MEDS ORDERED: EPOETIN ALFA 20,000 UNITS/ML VIAL IV ONE (07:00)
[2022-11-02] MEDS ORDERED: IRON SUCROSE 200 MG in SYRINGE 0 ML IV ONE (07:00)
[2022-11-02] MEDS ORDERED: SODIUM CHLORIDE 0.9% 1000ML 1,000 ML IV PRN (07:00)
[2022-11-02 08:27] LABS: Hematocrit (blood only) 28.4 % (34.1-44.9); Hemoglobin 8.5 g/dl (12.0-16.0); Mean Corpuscular Hemoglobin 33.3 pg (25.0-34.0); Mean Corpuscular Hgb Conc 29.9 g/dL (32.0-36.0); Mean Corpuscular Volume 111.4 fL (80.0-100.0); Mean Platelet Volume 11.2 fL (9.4-12.3); Nucleated RBC # (auto) 0.03 K/uL (0-0); Nucleated RBC % (auto) 0.4 %; Platelet Count 83 K/uL (130-400); RDW Coefficient of Variation 20.2 % (11.5-14.5); RDW Standard Deviation 81.9 fL (36.4-46.3); Red Blood Count 2.55 M/uL (3.93-5.22); White Blood Count 7.31 K/ul (4.8-10.8)
[2022-11-02 11:18] LABS: Calcium 8.4 mg/dl (8.5-10.1); Potassium 4.4 mmol/L (3.5-5.1)
[2022-11-02 11:43] LABS: BUN Creatinine Ratio 6.7 (10-20); Creatinine Clr Calc Pharmacy 9.8 ml/min; Est GFR (African American) 5.6 ml/min; Est GFR (Non-African American) 4.8 ml/min
--- NOTE | 2022-11-02 12:44 | Dialysis Progress Note ---
Date of Service November 02, 2022 Assessment & Plan Admission and Anticipated Discharge Date Admission Date: October 25, 2022 Subjective Assessment & Plan (1) AV graft thrombosis: Plan: s/p thrombectomy 10/27 but does not look like it was able to salvage the AVG. Now has tunnelled HD cath. (2) ESRD (end stage renal disease) on dialysis: Plan: for HD tomorrow again to get her back to her Outpt schedule of TTS. (3) DVT (deep venous thrombosis): Plan: nonocclusive L IJ >> not on AC as OP; likely chronic; defer to primary service for next steps; low threshold for heme admission Also has h/o Afibb . h/o Severe nose bleed while on eliquis. She has agreed to be on eliquis. will do renal dose adjusted. next HD tomorrow again for 3 hrs and take 2.5 kilo off. Low hgb and will give High dose DAVION + venofer. Subjective Seen during Dialysis. Qb 400 and no issues with CVC. BP fine. Denies any problems. Review of Systems Review of Systems: All systems reviewed & are unremarkable except as noted in Subjective Physical Exam Constitutional: well developed, well nourished, + morbidly obese and cooperative; no acute distress Eyes: EOM intact bilaterally ENMT: Ears: no external ear abnormality Nose: no external nose abnormality Mouth: + dry oral mucous membranes Neck: no nuchal rigidity Respiratory: normal respiratory effort Auscultation: + diminished lung sounds (anterior exam); no wheezes Cardiovascular: Rate/Rhythm: regular rate and regular rhythm Extremities: + AV fistula (AVG RUE proximal no t/b; not red/warm/tender); no edema Gastrointestinal (Abdomen): Inspection/Auscultation: normal bowel sounds Percussion/Palpation: abdomen soft; abdomen nontender Musculoskeletal: Extremities: edema 2+ Skin: no rashes, warm and dry Psychiatric: Orientation: oriented x 3 and oriented to person; + not oriented to place and + not oriented to time Speech: + abnormal rate/rhythm/volume of speech Results & Data ([facility]) Vital Signs (Past 12 Hours) Vital Signs Temp Pulse Pulse Pulse Resp BP BP 11/02/22 12:00 84 124/57 L 11/02/22 11:30 83 112/56 L 11/02/22 11:00 89 111/55 L 11/02/22 10:30 83 136/63 11/02/22 10:00 93 H 120/61 11/02/22 09:26 36.6 C 87 11/02/22 07:25 36.8 C 84 18 127/70 11/02/22 03:29 36.7 C 94 H 20 137/83 Pulse Ox O2 Del Method O2 Flow Rate 11/02/22 12:00 11/02/22 11:30 11/02/22 11:00 11/02/22 10:30 11/02/22 10:00 11/02/22 09:26 11/02/22 07:25 94 Nasal Cannula 2 11/02/22 03:29 93 Nasal Cannula 2
--- NOTE | 2022-11-02 13:47 | Hospitalist Progress Note ---
Date of Service November 02, 2022 Assessment & Plan (1) ESRD (end stage renal disease) on dialysis: Plan: - On dialysis T//Mon however could not have session on admission due to difficulty accessing her AV graft - [facility] consulted, and appreciate their assistance with patient - Patient still makes urine. 10/27/2022 status post AV fistula thrombectomy. While waiting for the thrombectomy are mathematics lecturer was able to successfully place a central venous access. 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 -10/26/2022 U/S venous duplex shows nonocclusive deep vein thrombosis in the left internal jugular vein -Post thrombectomy there were some challenges in dialysis flow discussion as between myself and nephrology feel if flow is an issue patient may need a tunneled catheter placed continues with no thrill to fistulae 10/30/22 Tunneled dialysis catheter placed 10/31/2022 with dialysis performed through this route on 10/31/2022 patient planning on dialysis on both Monday and to return to her Monday routine as an outpatient - (2) AV graft thrombosis: Plan: - AV graft thrombectomy on 10/27/2022 Given the graft thrombus in the jugular thrombus and atrial fibrillation risk consideration of anticoagulation will be undertaken. To this and we will institute heparin therapy at this time given her jugular venous thrombosis. This will allow us to control her anticoagulation while we continue discussion of appropriate use of an anticoagulant for long-term use in this patient it may eventually be a transition to warfarin we will initiate warfarin therapy on 11/01 for her DVT in her neck and fistula. After discussion with nephrology patient is agreement to do low-dose Eliquis therapy at this time heparin is discontinued Eliquis started 2.5 twice daily. This is an assumed risk as it is not formal full anticoagulation but yet appropriate for her dialysis adjustment unknown and potentially high risk to anticoagulation, transitioned to eliquis, renal dose without issue thus far (3) Hyperkalemia: Plan: - Acute issue subsequently resolved after treatment received calcium gluconate, insulin with dextrose, Lokelma, and Lasix in ED. -On presentation potassium was 6.6 - - (4) IDDM (insulin dependent diabetes mellitus): Plan: - Chronic stable insulin requiring diabetes continue Lantus 10 units HS with SSI. - BSG 281 on admit. (5) Chronic anemia: Plan: - Chronic and unstable Hemoglobin 7.1 transfusion 2 units with rise to 8.8. Not currently on anticoagulation or recent procedures will follow for worsening anemia Patient previously had B12 checked and folate checked it was replete. given epo by nephrology (6) Paroxysmal atrial fibrillation: Plan: - Chronic and stable while on amiodarone. Is now on AC watching for bleeding previously did have issues in the past while on eliquis - Continue on cardiac monitoring (7) Hypothyroidism: Plan: - Chronic and stable continue levothyroxine. (8) Morbid obesity with BMI of 50.0-59.9, adult: Plan: - Admission and Anticipated Discharge Date Admission Date: October 25, 2022 Subjective Patient awake and alert she is doing well no signs of bleeding Tunnel catheter site is not significantly tender Physical Exam Physical Exam: Patient awake alert appropriate appears comfortable Patient is resting comfortably lungs are clear anteriorly heart is regular Results & Data Results & Data ([facility]) Vital Signs (Past 12 Hours) Vital Signs Temp Pulse Pulse Pulse Resp BP BP 11/02/22 12:30 90 105/57 L 11/02/22 12:00 84 124/57 L 11/02/22 11:30 83 112/56 L 11/02/22 11:00 89 111/55 L 11/02/22 10:30 83 136/63 11/02/22 10:00 93 H 120/61 11/02/22 09:26 97.9 F 87 11/02/22 07:25 98.2 F 84 18 127/70 11/02/22 03:29 98.1 F 94 H 20 137/83 Pulse Ox O2 Del Method O2 Flow Rate 11/02/22 12:30 11/02/22 12:00 11/02/22 11:30 11/02/22 11:00 11/02/22 10:30 11/02/22 10:00 11/02/22 09:26 11/02/22 07:25 94 Nasal Cannula 2 11/02/22 03:29 93 Nasal Cannula 2 Diagnostic Findings CBC reviewed hemoglobin stable on Eliquis therapy Chemistry reviewed supporting need for continued renal replacement therapy PG Care Time/CCT Total # of Minutes Spent Total Time Spent with Patient: Total time spent is greater than 50% in coordination of care (as documented) at patient's floor/unit and/or counseling patient: Coding Level of Care Code 65224 SUB INP/OBS CARE MIN Diagnoses ESRD (end stage renal disease) on dialysis N18.6; Z99.2 AV graft thrombosis T82.868A Hyperkalemia E87.5 IDDM (insulin dependent diabetes mellitus) Chronic anemia D64.9 Paroxysmal atrial fibrillation I48.0 Hypothyroidism E03.9 Morbid obesity with BMI of 50.0-59.9, adult E66.01; Z68.43
[2022-11-02] MEDS: INSULIN ASPART PER UNIT SC SCH ×4 (13:59→20:41)
[2022-11-02] MEDS: AMIODARONE 200 MG TAB PO SCH (15:05)
[2022-11-02] MEDS: PANTOprazole 40 MG TAB PO SCH (15:06)
[2022-11-02] MEDS: ATORVASTATIN 20 MG TAB PO SCH (15:06)
[2022-11-02] MEDS: SODIUM ZIRCONIUM CYCLOSILICATE 10 GM PACKET PO SCH (15:06)
[2022-11-02] MEDS: NEPHROCAPS PO SCH (15:06)
[2022-11-02] MEDS: CALCIUM ACETATE 667 MG CAP/TAB PO SCH ×3 (15:06→18:23)
[2022-11-02] MEDS: EZETIMIBE 10 MG TABLET PO SCH (15:06)
[2022-11-02] MEDS: APIXABAN 2.5 MG TAB PO SCH ×2 (15:06→20:27)
[2022-11-02] MEDS: FUROSEMIDE 80 MG TAB PO SCH (15:06)
[2022-11-02] MEDS: LANTUS PER UNIT CHARGE SQ SCH (20:43)
[2022-11-03] MEDS: LEVOTHYROXINE SODIUM 75 MCG TABLET PO SCH (06:41)
[2022-11-03] MEDS ORDERED: EPOETIN ALFA 20,000 UNITS/ML VIAL IV ONE (07:00)
[2022-11-03] MEDS ORDERED: IRON SUCROSE 200 MG in SYRINGE 0 ML IV ONE (07:00)
[2022-11-03] MEDS ORDERED: SODIUM CHLORIDE 0.9% 1000ML 1,000 ML IV PRN (07:00)
[2022-11-03] MEDS: APIXABAN 2.5 MG TAB PO SCH (08:21)
[2022-11-03] MEDS: ATORVASTATIN 20 MG TAB PO SCH (08:21)
[2022-11-03] MEDS: NEPHROCAPS PO SCH (08:21)
[2022-11-03] MEDS: PANTOprazole 40 MG TAB PO SCH (08:22)
[2022-11-03] MEDS: EZETIMIBE 10 MG TABLET PO SCH (08:22)
[2022-11-03] MEDS: AMIODARONE 200 MG TAB PO SCH ×2 (08:22→12:53)
[2022-11-03] MEDS: CALCIUM ACETATE 667 MG CAP/TAB PO SCH ×2 (08:22→12:52)
[2022-11-03] MEDS: INSULIN ASPART PER UNIT SC SCH ×2 (08:26→13:50)
--- NOTE | 2022-11-03 10:56 | Dialysis Progress Note ---
Date of Service November 03, 2022 Assessment & Plan Admission and Anticipated Discharge Date Admission Date: October 25, 2022 Subjective Assessment & Plan (1) AV graft thrombosis: Plan: s/p thrombectomy 10/27 but does not look like it was able to salvage the AVG. Now has tunnelled HD cath. (2) ESRD (end stage renal disease) on dialysis: Plan: HD today again to get her back to her Outpt schedule of TTS. (3) DVT (deep venous thrombosis): Plan: nonocclusive L IJ >> not on AC as OP; likely chronic; defer to primary service for next steps; low threshold for heme admission Also has h/o Afibb . h/o Severe nose bleed while on eliquis. She has agreed to be on eliquis. next HD Monday as outpt. reminded her not to miss dialysis. . Low hgb and will give High dose DAVION + venofer. Subjective Seen during Dialysis. Qb 400 and no issues with CVC. BP fine. Denies any problems. Says going home today Review of Systems Review of Systems: All systems reviewed & are unremarkable except as noted in Subjective Physical Exam Constitutional: well developed, well nourished, + morbidly obese and cooperative; no acute distress Eyes: EOM intact bilaterally ENMT: Ears: no external ear abnormality Nose: no external nose abnormality Mouth: + dry oral mucous membranes Neck: no nuchal rigidity Respiratory: normal respiratory effort Auscultation: + diminished lung sounds (anterior exam); no wheezes Cardiovascular: Rate/Rhythm: regular rate and regular rhythm Extremities: + AV fistula (AVG RUE proximal no t/b; not red/warm/tender); no edema Gastrointestinal (Abdomen): Inspection/Auscultation: normal bowel sounds Percussion/Palpation: abdomen soft; abdomen nontender Musculoskeletal: Extremities: edema 2+ Skin: no rashes, warm and dry Psychiatric: Orientation: oriented x 3 and oriented to person; + not oriented to place and + not oriented to time Speech: + abnormal rate/rhythm/volume of speech Results & Data ([facility] Vital Signs (Past 12 Hours) Vital Signs Temp Pulse Pulse Pulse Resp BP BP 11/03/22 08:00 84 11/03/22 08:00 11/03/22 10:30 85 133/63 11/03/22 10:00 68 121/99 11/03/22 09:30 114 H 109/61 11/03/22 09:24 113 H 139/36 L 11/03/22 09:20 36.7 C 108 H 11/03/22 07:56 36.5 C 90 18 132/73 11/03/22 04:20 36.6 C 88 20 99/56 L 11/03/22 00:44 89 11/02/22 23:02 37.2 C 86 20 110/53 L Pulse Ox O2 Del Method O2 Flow Rate 11/03/22 08:00 11/03/22 08:00 Nasal Cannula 11/03/22 10:30 11/03/22 10:00 11/03/22 09:30 11/03/22 09:24 11/03/22 09:20 11/03/22 07:56 93 Nasal Cannula 2 11/03/22 04:20 93 Nasal Cannula 2 11/03/22 00:44 11/02/22 23:02 95 Nasal Cannula 2
--- NOTE | 2022-11-03 11:12 | Discharge Summary ---
Date of Service November 03, 2022 Admission HPI Per Admitting Provider Zoya Solares is a 62-year-old female history of ESRD on dialysis is a 62-year-old female with a past medical history significant for ESRD on hemodialysis //Mon, hypertension, DM2, HFrEF, paroxysmal A. fib and history of GI bleeds, and anemia of chronic disease. She is presenting today from the dialysis center. She receives ESRD as an outpatient . Today they were unable to access her AV graft and sent her to ED for further evaluation. Patient states she has been feeling well, was hospitalized in [place] this past weekend for pneumonia and they were had some difficulty but were eventually able to access her AV graft for dialysis on Monday. Today she is feeling well. Denies fever/chills, weakness, myalgias, cough, congestion, chest pain, palpitations, nausea, vomiting, abdominal pain, diarrhea, or constipation, dysuria, hematuria. On presentation, VS wnl, BP at the lower end which is her baseline, she is on her usual 2 L NC. Labs remarkable for K 6.2, BUN 74, Cr 9.61, Ca 8.1, glucose 281. WBC 11 with left shift, Hgb 7.9--near baseline over past 6 months, PLT 109. CXR: Mild cardiomegaly with mild congestive change. 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 metformin AdvReac Intermediate Diarrhea Verified 10/25/22 17:53 Consultations 10/25/22 19:00 ED Decision to Admit Stat 10/25/22 23:50 Consult Nephrology Routine 10/26/22 07:53 Consult Vascular Surgery Routine 10/26/22 08:45 Consult Master At Arms Routine Procedures Performed Operation Date: 10/27/22 08:00 Actual Procedures p Right Upper Extremity Thrombectomy of Fistula, SETTER OFF of Peripheral venous,(Right) - Kalpesh Arevalo MD s Fistulogram (Right) - Kalpesh Arevalo MD Operation Date: 10/31/22 10:20 Actual Procedures p Removal of Temporary Dialysis Catheter, Insertion of Perm Catheter, Right Internal Jugular Approach, Ultrasound Localization of Right Internal Jugular Vein, Fluroscopy for Positioning, Moderate Sedation [id number] - Kalpesh Arevalo MD Ordered Studies 10/26/22 09:15 US point of care ultrasound Routine 10/26/22 09:53 US hemodialysis access Routine 10/26/22 11:33 US venous duplex arm [US venous doppler UE LT] Routine 10/27/22 07:08 EV angio arteriovenous shunt Routine 10/31/22 07:17 EV cvc insrt tunnel wo prt/can dryer Routine US EV guide vascular access Routine Hospital Course (1) ESRD (end stage renal disease) on dialysis: - On dialysis T//Mon however could not have session on admission due to difficulty accessing her AV graft - [facility] nephrology consulted, and appreciate their assistance with patient - Patient still makes urine. 10/27/2022 status post AV fistula thrombectomy. While waiting for the thrombectomy are director of laboratory operations was able to successfully place a central venous access. 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 -10/26/2022 U/S venous duplex shows nonocclusive deep vein thrombosis in the left internal jugular vein -Post thrombectomy there were some challenges in dialysis flow discussion as between myself and nephrology feel if flow is an issue patient may need a tunneled catheter placed continues with no thrill to fistulae 10/30/22 Tunneled dialysis catheter placed 10/31/2022 with dialysis performed through this route on 10/31/2022 patient planning on dialysis on both Monday and to return to her Monday routine as an outpatient - Patient will be discharged on 11/03 Discharge instruction as stated below. (2) AV graft thrombosis: - AV graft thrombectomy on 10/27/2022 Given the graft thrombus in the jugular thrombus and atrial fibrillation risk consideration of anticoagulation will be undertaken. To this and we will institute heparin therapy at this time given her jugular venous thrombosis. This will allow us to control her anticoagulation while we continue discussion of appropriate use of an anticoagulant for long-term use in this patient it may eventually be a transition to warfarin we will initiate warfarin therapy on 11/01 for her DVT in her neck and fistula. After discussion with nephrology patient is agreement to do low-dose Eliquis therapy at this time heparin is discontinued Eliquis started 2.5 twice daily. This is an assumed risk as it is not formal full anticoagulation but yet appropriate for her dialysis adjustment unknown and potentially high risk to anticoagulation, transitioned to eliquis, renal dose without issue thus far (3) Hyperkalemia: - Acute issue subsequently resolved after treatment received calcium gluconate, insulin with dextrose, Lokelma, and Lasix in ED. -On presentation potassium was 6.6 -improved with dialysis - (4) IDDM (insulin dependent diabetes mellitus): - Chronic stable insulin requiring diabetes continue Lantus 10 units HS with SSI. - BSG 281 on admit. (5) Chronic anemia: - Chronic and unstable Hemoglobin 7.1 transfusion 2 units with rise to 8.8. Not currently on anticoagulation or recent procedures will follow for worsening anemia Patient previously had B12 checked and folate checked it was replete. given epo by nephrology (6) Paroxysmal atrial fibrillation: - Chronic and stable while on amiodarone. Is now on AC watching for bleeding previously did have issues in the past while on eliquis - Continue on cardiac monitoring (7) Hypothyroidism: - Chronic and stable continue levothyroxine. (8) Morbid obesity with BMI of 50.0-59.9, adult: - Total Time Total Time Spent Total Time Spent (In Minutes): 32 Discharge Plan Discharge Items Patient Disposition: Home - Self-Care Reason For Visit: ESRD ON DIALYSIS WITH AV GRAFT MALFUNCTION Discharge Diagnosis: ESRD on Dialysis Activity: Resume your previous activity Non-emergency contact: Primary Care Provider Call non-emergency contact if: you have any medication questions Follow-up/Referrals: Bhanu Murillo M.D. [Primary Care Provider] - Diet: Dialysis Renal Addtl Attending Provider Instructions: You have been hospitalized for an acute medical problem. During your stay at [facility], we have made an effort to correct the problem that brought you to the hospital while keeping you as comfortable as possible. Medications were used to bring your condition under control and your discharge instructions will include directions for any medications you should take after leaving the hospital. Please make sure you see your Primary Care Provider as part of your follow up plan. Pending Studies at Discharge: No Stand-Alone Forms: My [facility], Smoking Cessation Medications and DC Order Prescriptions: Continued atorvastatin 20 mg tablet 20 mg PO QAM insulin glargine [Lantus U-100 Insulin] 100 unit/mL Solution 10 unit SUBCUT HS Renal Caps 1 mg Capsule 1 cap PO QAM ezetimibe [Zetia] 10 mg Tablet 10 mg PO QAM calcium acetate(phosphat bind) 667 mg capsule 1,334 mg PO TIDM ondansetron HCl 4 mg tablet 4 mg PO Q8H PRN (Reason: NAUSEA/VOMITING) lorazepam 0.5 mg tablet 0.5 mg PO TID PRN (Reason: Anxiety) pantoprazole 40 mg tablet,delayed release (DR/EC) 40 mg PO QAM nystatin 100,000 unit/gram powder 1 applic TOPICAL BID PRN (Reason: RASH UNDER BREASTS) amiodarone 100 mg tablet 100 mg PO QAM Eliquis 2.5 mg tablet 2.5 mg PO BID Qty: 60 0RF furosemide [Lasix] 80 mg Tablet 80 mg PO 4XWK Qty: 0 0RF Rx Instructions: ONLY TAKE ON NON-DIALYSIS DAYS (SUN,MON,WED,FRI) Lokelma 10 gram powder in packet 10 g PO 4XWK Qty: 0 0RF Rx Instructions: ONLY TAKE ON NON-DIALYSIS DAYS (SUN,MON,WED,FRI) albuterol sulfate 90 mcg/actuation HFA aerosol inhaler 2 puff inhalation DIRECTED PRN (Reason: Shortness Of Breath) Rx Instructions: 2 puffs prn levothyroxine 25 mcg capsule 37.5 mcg PO DAILY Discharge Orders: Discharge Order (Routine); Ordered 11/03/22 Ordered By: Jimmy Guajardo Admission Data Admit Date/Time: 10/25/22 19:09 Attending Provider: Jimmy Guajardo Admit Provider: Godwin Mejia Primary Care Provider: Bhanu Murillo Other Providers: Godwin Mejia ; Saray Guzman ; Kalpesh Arevalo ; Alexander Pulliam Other Interventions: Discharge Summary Assessment (RN) Last Done: 11/03/22 14:05 Coding Level of Care Code HOSP INP/OBS DISCH >30 MIN Diagnoses ESRD (end stage renal disease) on dialysis N18.6; Z99.2 AV graft thrombosis T82.868A Hyperkalemia E87.5 IDDM (insulin dependent diabetes mellitus) Chronic anemia D64.9 Paroxysmal atrial fibrillation I48.0 Hypothyroidism E03.9 Morbid obesity with BMI of 50.0-59.9, adult E66.01; Z68.43
[2022-11-04 23:36] LABS: Anti Cardiolipin Ab IgG <2.0 GPL-U/mL (<20.0); Anti Cardiolipin Ab IgM 7.3 MPL-U/mL (<20.0); Anti-Cardiolipin Ab IgA 15.1 APL-U/mL (<20.0); B2 Glycoprotein IgA 11.8 U/mL (<20.0); B2 Glycoprotein IgG <2.0 U/mL (<20.0); B2 Glycoprotein IgM 7.6 U/mL (<20.0); PTT LA Screen 35 sec (<=40); Phosphatidylser Prothrom IgG 7 U (<=30); Phosphatidylserine ProthromIgM 4 U (<=30)
== END 2022-11-03 14:35 | disposition home or self-care (01) | DRG 314 ==
LOC: ED 13:04 → 4W 19:09 → SUATTDRO 19:09 → 4W 23:17